=== PATIENT | female | born 2000 | race Caucasian/White ===

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

== ENCOUNTER 2022-04-18 22:37 | Emergency (ER) | payer OTHER, SELFPAY ==
[2022-04-18 23:40] VITALS: BP 105/67; PULSE 65; RESP 16; TEMP 36.4; O2SAT 100
--- NOTE | 2022-04-19 02:38 | ED.GENADULT ---
HPI - General Adult General Chief complaint: Headache Stated complaint: Headache Time Seen by Provider: 04/19/22 02:28 History of Present Illness HPI narrative: Patient is a 21-year-old female who presents the emergency department with chief complaint of headache. The patient reports that she has had problems occasionally with headaches but has not had a headache like this in some time. Patient states that she was extremely nauseated unable to keep anything down patient received Zofran by EMS and reports that she has been able to get older rest and is now feeling much better. The patient reports her headache is essentially gone and she would like to try something to drink now. Related Data Home Medications Medication Instructions Recorded Confirmed drospirenone 3 mg-ethinyl tablet 10/15/21 estradiol 0.02 mg tablet Allergies Allergy/AdvReac Type Severity Reaction Status Date / Time carbamazepine Allergy Unknown Rash Verified 10/15/21 21:20 Review of Systems Review of Systems: A 10 system review of systems was completed on the patient and is negative except for what is stated in the HPI. Nursing and ancillary documentation was reviewed. [facility] Past Medical History Medical History (Updated 04/19/22 @ 02:40 by Brenton Vidales MD) Bipolar disorder Sensory disorder Surgical History Surgical History History of tonsillectomy Family History Family History Other No significant family history Social History Social History Smoking status: Never smoker Second hand tobacco smoke exposure: No Alcohol intake: never Substance use: never Gender identity (if verbalized by the patient): Female Exam Narrative: GENERAL: Well-appearing, well-nourished, and in no acute distress. HEAD: Normocephalic, atraumatic. EYES: PERRLA and EOMI. ENT: Nares clear, no rhinorrhea or epistaxis. Mucous membranes moist. NECK: Supple. CHEST: Clear to auscultation. No respiratory distress. HEART: Regular rate and rhythm. No murmur heard. Normal peripheral pulses. ABDOMEN: Soft, nontender, nondistended, normal active bowel sounds. EXTREMITIES: Normal range of motion. No edema. SKIN: Warm, dry, no rash. NEURO: No focal deficits. Alert and oriented x3. PSYCH: Normal mood and affect. Course Course Emergency Course: Patient received Zofran and is feeling much better at this time. Patient states her headache is essentially resolved patient has no focal neurological deficits and shows no sign of space-occupying lesion. Vital Signs Vital signs: Vital Signs Temperature 36.4 C L 04/18/22 23:40 Pulse Rate 65 04/18/22 23:40 Respiratory Rate 16 04/18/22 23:40 Blood Pressure 105/67 04/18/22 23:40 Pulse Oximetry 100 04/18/22 23:40 Oxygen Delivery Room Air 04/18/22 23:40 Temperature 36.4 C L 04/18/22 23:40 Pulse Rate 65 04/18/22 23:40 Respiratory Rate 16 04/18/22 23:40 Blood Pressure 105/67 04/18/22 23:40 Pulse Oximetry 100 04/18/22 23:40 Oxygen Delivery Room Air 04/18/22 23:40 Medical Decision Making Vital Signs Vital Signs: Vital Signs Temperature 36.4 C L 04/18/22 23:40 Pulse Rate 65 04/18/22 23:40 Respiratory Rate 16 04/18/22 23:40 Blood Pressure 105/67 04/18/22 23:40 Pulse Oximetry 100 04/18/22 23:40 Oxygen Delivery Room Air 04/18/22 23:40 Temperature 36.4 C L 04/18/22 23:40 Pulse Rate 65 04/18/22 23:40 Respiratory Rate 16 04/18/22 23:40 Blood Pressure 105/67 04/18/22 23:40 Pulse Oximetry 100 04/18/22 23:40 Oxygen Delivery Room Air 04/18/22 23:40 Discharge Plan Discharge Clinical Impression: Headache Patient Disposition: Home, Self-Care Condition: Stable Instructions: Antibiotic Form, Acute Headache (ED) Prescri
--- NOTE | 2022-04-19 03:07 | PC.NURSE ---
Report given to
== END 2022-04-19 04:30 | disposition home or self-care (01) ==
PROVIDERS: Emergency Provider Emergency Medicine
DX: R51.9 Headache, unspecified (principal)
CPT/HCPCS: 99283; J2405

== ENCOUNTER 2022-10-11 14:23 | Emergency (ER) | payer OTHER, SELFPAY ==
--- NOTE | ~2022-10-11 | XR_ITS ---
XR abdomen/kub 1V DATE: 10/11/2022 15:09 INDICATION: Constipation TECHNIQUE: AP view COMPARISON: None FINDINGS: Approximately 9 cm wide stool ball at rectosigmoid area. Prominent of fecal material in the left colon. No bowel obstruction is noted. Associated as are intact. No visceromegaly or significant abnormal calcification. IMPRESSION: Large stool ball in the rectosigmoid area, prominent amount of fecal material in the left colon. Reviewed, dictated and finalized at Location A. Reviewed, dictated and finalized at location L. 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
[2022-10-11 14:30] VITALS: BP 109/58; PULSE 99; RESP 18; TEMP 36.6; O2SAT 99
--- NOTE | 2022-10-11 15:26 | ED.ABDPAIN ---
HPI - Abdominal Pain General Chief Complaint: Abdominal Pain Stated Complaint: Constipation Time Seen by Provider: 10/11/22 14:35 Source: patient Mode of arrival: ambulatory Limitations: no limitations History of Present Illness HPI narrative: Mae is a 22-year-old female patient presenting to the clinic today with complaints lower abdominal pain x1 week. She reports having a history of constipation with impaction that had to be evacuated in a hospital setting. States she is concerned that she may be impacted. Is having a lot of pain and pressure to the rectum as well as discomfort in the lower abdomen. She does not know when her last menstrual period was however she does have the Nexplanon placed. Is not taking any laxatives currently. States she is scared to eat because she does not want her symptoms to get worse. Related Data Allergies Allergy/AdvReac Type Severity Reaction Status Date / Time carbamazepine Allergy Unknown Rash Verified 10/15/21 21:20 Review of Systems Review of Systems: Pertinent positives per HPI. Patient denies any fever, chills, rash, headache, visual changes, dizziness, cough, shortness of breath, chest pain, palpitations, nausea, vomiting, diarrhea, constipation, abdominal pain, or any urinary issues. PMFSH Past Medical History Medical History Bipolar disorder Sensory disorder Surgical History Surgical History History of tonsillectomy Family History Family History Other No significant family history Social History Social History Smoking status: Never smoker Second hand tobacco smoke exposure: No Alcohol intake: never Substance use: never Living arrangements: with family Occupation/Education: student Gender identity (if verbalized by the patient): Female Comments At the time of my signature, I reviewed and agree with the nursing past medical, surgical, social, and family history. There is no relevant family history pertinent to the patient complaint. Exam Narrative: General: Well-developed, well nourished, in no apparent distress. Head: Normocephalic, atraumatic. Cardio: Regular rate and rhythm, s1 and s2 normal, no murmur appreciated. Resp: Clear to auscultation bilaterally, no rhonchi, rales, wheezing or rubs. Abdomen: Soft, pliable, nondistended, bowel sounds present in all quadrants, tender to palpation with firm stool palpable in the left lower quadrant and above the pubis, no organomegly, no CVAT tenderness. Course Course Emergency Course: Portions of this record may have been created with voice recognition software. Level of Care: Express Care Visit Vital Signs Vital signs: Vital Signs Temperature 36.6 C 10/11/22 14:30 Pulse Rate 99 10/11/22 14:30 Respiratory Rate 18 10/11/22 14:30 Blood Pressure 109/58 L 10/11/22 14:30 Pulse Oximetry 99 10/11/22 14:30 Oxygen Delivery Room Air 10/11/22 14:30 Temperature 36.6 C 10/11/22 14:30 Pulse Rate 99 10/11/22 14:30 Respiratory Rate 18 10/11/22 14:30 Blood Pressure 109/58 L 10/11/22 14:30 Pulse Oximetry 99 10/11/22 14:30 Oxygen Delivery Room Air 10/11/22 14:30 Vital signs reviewed MDM - Abdominal Pain MDM Narrative Medical decision making narrative: At the time of visit patient is resting comfortably on the exam table. Firm palpable stool felt in the left lower quadrant and over the pubis. X-ray was performed and shows a large amount of stool in the sigmoid colon as well as backed up into the left lower: Significant for constipation. Will send in prescription for fleets enemas, lactulose and have the patient has take MiraLax as well. Supportive measures were discussed with the patient she voiced understanding of discharge
== END 2022-10-11 15:43 | disposition home or self-care (01) ==
PROVIDERS: Emergency Provider Nurse Practitioner Family
DX: K59.02 Outlet dysfunction constipation (principal)
CPT/HCPCS: 74018; 99213; G0463

== ENCOUNTER 2022-11-13 17:59 | Emergency (ER) | payer OTHER, SELFPAY ==
[2022-11-13 18:08] VITALS: BP 116/63; PULSE 92; RESP 16; TEMP 36.2; O2SAT 99
[2022-11-13 18:09] VITALS: BP 116/63; PULSE 92; RESP 16; TEMP 36.2; O2SAT 99
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
== END 2022-11-13 18:28 | disposition home or self-care (01) ==
PROVIDERS: Emergency Provider Nurse Practitioner
DX: S02.5XXA Fracture of tooth (traumatic), initial encounter for closed fracture (principal); W16.012A Fall into swimming pool striking water surface causing other injury, initial encounter; F17.290 Nicotine dependence, other tobacco product, uncomplicated
CPT/HCPCS: 99213; G0463

== ENCOUNTER 2022-12-13 10:33 | Emergency (ER) | payer OTHER, SELFPAY ==
[2022-12-13 10:40] VITALS: BP 109/76; PULSE 81; RESP 18; TEMP 36.9; O2SAT 100
--- NOTE | 2022-12-13 10:44 | ED.SKABFB ---
HPI - Skin/Abscess/Foreign Bdy General Chief complaint: Skin/Abscess/Foreign Body Stated complaint: rash Time Seen by Provider: 12/13/22 10:43 Source: patient, RN notes reviewed and old records reviewed Mode of arrival: ambulatory Limitations: no limitations History of Present Illness HPI narrative: 22-year-old female presents to the [facility] with a circular raised edge rash to the left deltoid area. States has been there a couple of days, describes it as being very itchy. No treatment prior to arrival Related Data Home Medications Medication Instructions Recorded Confirmed etonogestrel 68 mg subdermal 1 implant subdermal ONCE 11/13/22 12/13/22 implant (Nexplanon) Allergies Allergy/AdvReac Type Severity Reaction Status Date / Time carbamazepine Allergy Intermediate Rash Verified 12/13/22 10:38 Review of Systems Review of Systems: All systems reviewed & are unremarkable except as noted in HPI and below Constitutional: Constitutional: Reports no additional constitutional complaints Eyes: Eyes: Reports no additional eye complaints ENT: Reports system reviewed and no additional complaints, except as documented Cardiovascular: Cardiovascular: Reports no additional cardiovascular complaints, Denies chest pain and Denies dyspnea Respiratory: Respiratory: Reports no additional respiratory complaints, Denies chest congestion, Denies cough and Denies dyspnea Gastrointestinal: Gastrointestinal: Reports no additional gastrointestinal complaints, Denies abdominal pain, Denies nausea and Denies vomiting Musculoskeletal: Musculoskeletal: Reports no additional musculoskeletal complaints Integumentary/Breasts: Skin/Breast: Reports as per HPI Neurologic: Reports system reviewed and no additional complaints, except as documented Psychiatric: Psychiatric: Reports no additional psychiatric complaints Allergic/Immunologic: Allergic/Immunologic: Reports no additional allergic/immunologic complaints [facility] Past Medical History Medical History Bipolar disorder Sensory disorder Surgical History Surgical History History of tonsillectomy Family History Family History Other No significant family history Social History Social History Smoking status: Current every day smoker Tobacco type: e-cigarettes/vaping Alcohol intake: never Substance use: never Living arrangements: with family Occupation/Education: student Gender identity (if verbalized by the patient): Female Spiritual care concerns: No Comments At the time of my signature, I reviewed and agree with the nursing past medical, surgical, social, and family history. There is no relevant family history pertinent to the patient complaint. Exam Const: General: cooperative, healthy appearing, comfortable, no acute distress, well developed, alert and well nourished Nutritional Appearance: well nourished Orientation/consciousness: patient oriented x3 Limitations: no limitations HENMT: Head: normal to inspection Ears: hearing grossly normal bilaterally and external ears normal Face/Nose/Sinus: Normal external nose present, Normal nares present, Normal nasal mucous membranes and turbinates present and normal facial exam Face and sinus: normal facial exam Mouth: Yes lip normal Eyes: General: appearance normal, both eyes and all related structures Alignment and Position: alignment normal Periorbital: periorbital findings normal Pupils: Equal, round and reactive pupils present EOM: EOMs intact bilaterally Neck: Neck: normal visual inspection, full ROM, no lymphadenopathy and no meningeal signs Chest: Chest palpation & inspection: normal inspection of the chest Resp: Effort & Inspection: normal respiratory effort and able to speak in c
== END 2022-12-13 10:58 | disposition home or self-care (01) ==
PROVIDERS: Emergency Provider Nurse Practitioner
DX: B35.4 Tinea corporis (principal); F17.290 Nicotine dependence, other tobacco product, uncomplicated
CPT/HCPCS: 99213; G0463

== ENCOUNTER 2023-01-11 15:42 | Emergency (ER) | payer OTHER, SELFPAY ==
--- NOTE | ~2023-01-11 | XR_ITS ---
EXAMINATION: XR abdomen/kub 1V INDICATION: Constipation, lower abdominal pain TECHNIQUE: Supine views of the abdomen were obtained on 2 radiographs. COMPARISON: 10/11/2022 FINDINGS: There is a large volume of stool in the sigmoid colon and rectum. The bowel gas pattern is normal. There are no dilated loops of bowel. The visualized lung bases are clear. The osseous structu res are unremarkable. IMPRESSION: 1. Constipation with large volume of stool in the sigmoid colon and rectum. Reviewed, dictated and finalized at location F.
--- NOTE | 2023-01-11 15:46 | ED.DENTAL ---
HPI - Dental/Oral General Chief complaint: Unspecified Stated complaint: Dental Pain/Constipation Time Seen by Provider: 01/11/23 15:43 Source: patient Mode of arrival: ambulatory Limitations: no limitations History of Present Illness HPI Narrative: Patient is a 22 year old female that presents with constipation and left bottom molar pain. Patient has dentist appointment next week but is concerned for infection. Patient has been seen in the past for same tooth. Patient states tooth is broken off and has been to cane over time. Patient also having abdominal pain and constipation. Patient has frequent constipation issues and is unsure when her last bowel movement was. Patient has been seen for this in the past as well and was given lactulose. Patient states lactulose helped her and she was able to pass her stool. Patient adamantly refuses to go to emergency department stating she does not trust hospitals due to childhood abdominal issues in long stent at [facility]. Patient is tearful in room. Related Data Home Medications Medication Instructions Recorded Confirmed etonogestrel 68 mg subdermal 1 implant subdermal ONCE 11/13/22 01/11/23 implant (Nexplanon) Allergies Allergy/AdvReac Type Severity Reaction Status Date / Time carbamazepine Allergy Intermediate Rash Verified 01/11/23 16:40 Review of Systems Review of Systems: All systems reviewed & are unremarkable except as noted in HPI and below Constitutional: Constitutional: Denies body ache(s), Denies fever(s), Denies headache(s), Denies malaise and Denies weakness Eyes: Eyes: Denies loss of vision ENT: Denies otalgia, Reports facial pain (jaw), Denies headache(s), Denies nasal discharge, Denies sinus pain and Denies sore throat Cardiovascular: Cardiovascular: Denies chest pain, Denies irregular heart rhythm and Denies dyspnea Respiratory: Respiratory: Denies dyspnea Gastrointestinal: Gastrointestinal: Denies abdominal pain, Denies melena, Denies hematochezia, Reports constipation, Denies diarrhea, Denies nausea and Denies vomiting Musculoskeletal: Musculoskeletal: Denies back pain, Denies myalgias and Denies arthralgias Integumentary/Breasts: Skin/Breast: Denies pruritus and Denies rash Neurologic: Denies headache(s), Denies loss of vision and Denies weakness Psychiatric: Psychiatric: Reports no additional psychiatric complaints PMFSH Past Medical History Medical History (Updated 01/11/23 @ 17:24 by Shahana Taylor APRN) Bipolar disorder Sensory disorder Surgical History Surgical History History of tonsillectomy Family History Family History Other No significant family history Social History Social History Smoking status: Current every day smoker Tobacco type: e-cigarettes/vaping Alcohol intake: never Substance use: never Living arrangements: with family Occupation/Education: student Gender identity (if verbalized by the patient): Female Spiritual care concerns: No Comments At time of signature, agree with nursing past medical, surgical, social and family history. There is no relevant family history pertinent to the presenting complaint. Exam Const: General: cooperative, healthy appearing, comfortable, no acute distress and well nourished Nutritional Appearance: well nourished Orientation/consciousness: patient oriented x3 Limitations: no limitations HENMT: Head: normal to inspection, normocephalic and atraumatic Ears: hearing grossly normal bilaterally, external ears normal, TM's normal bilaterally and mastoids normal bilaterally Face/Nose/Sinus: Normal external nose present, normal facial exam and face symmetric Face and sinus: normal facial exam and face symmetric Mouth: Yes Normal oral and palatal mucosa present, Yes lip normal, Yes tongue normal
[2023-01-11 15:57] VITALS: BP 96/60; PULSE 82; RESP 16; TEMP 37; O2SAT 100
== END 2023-01-11 17:35 | disposition home or self-care (01) ==
PROVIDERS: Emergency Provider Nurse Practitioner Family
DX: K04.7 Periapical abscess without sinus (principal); K59.00 Constipation, unspecified; F17.290 Nicotine dependence, other tobacco product, uncomplicated
CPT/HCPCS: 74018; 81025; 99213; G0463

== ENCOUNTER 2023-05-06 10:55 | Emergency (ER) | payer OTHER, SELFPAY ==
[2023-05-06 11:07] VITALS: BP 104/67; PULSE 78; RESP 14; TEMP 37.3; O2SAT 100
--- NOTE | 2023-05-06 11:11 | ED.GENADULT ---
HPI - General Adult General Chief complaint: Urogenital-Female Stated complaint: vaginal issue Time Seen by Provider: 05/06/23 11:12 Source: patient, RN notes reviewed and old records reviewed Mode of arrival: ambulatory Limitations: no limitations History of Present Illness HPI narrative: 22-year-old female presents to the [facility] with complaints of vaginal discharge, describes it as being brown and bright red. Denies any abdominal pain. No nausea or vomiting. Reports having intermittent breast tenderness as well. Patient is requesting an ultrasound as well as blood work. Has she is concerned that she might be or having a miscarriage. Explained to patient that we can do a urine , test for UTI, patient is wanting blood work. States that she did have spotting that lasted 2 days on and Saturday. Patient reports she had seen [facility] last month in regards to irregular periods. Related Data Home Medications Medication Instructions Recorded Confirmed etonogestrel 68 mg subdermal 1 implant subdermal ONCE 11/13/22 01/11/23 implant (Nexplanon) spironolactone 50 mg tablet mg 05/06/23 Allergies Allergy/AdvReac Type Severity Reaction Status Date / Time carbamazepine Allergy Intermediate Rash Verified 05/06/23 11:02 Review of Systems Review of Systems: All systems reviewed & are unremarkable except as noted in HPI and below Constitutional: Constitutional: Reports no additional constitutional complaints Eyes: Eyes: Reports no additional eye complaints ENT: Reports system reviewed and no additional complaints, except as documented Cardiovascular: Cardiovascular: Reports no additional cardiovascular complaints, Denies chest pain and Denies dyspnea Respiratory: Respiratory: Reports no additional respiratory complaints, Denies chest congestion, Denies cough and Denies dyspnea Gastrointestinal: Gastrointestinal: Reports no additional gastrointestinal complaints, Denies abdominal pain, Denies nausea and Denies vomiting Genitourinary: Genitourinary: Reports as per HPI, Reports abnormal menses and Reports vaginal discharge Musculoskeletal: Musculoskeletal: Reports no additional musculoskeletal complaints Integumentary/Breasts: Skin/Breast: Reports system reviewed and no additional complaints, except as docu Neurologic: Reports system reviewed and no additional complaints, except as documented Psychiatric: Psychiatric: Reports no additional psychiatric complaints Allergic/Immunologic: Allergic/Immunologic: Reports no additional allergic/immunologic complaints PMFSH Past Medical History Medical History Bipolar disorder Sensory disorder Surgical History Surgical History History of tonsillectomy Family History Family History Other No significant family history Social History Social History Smoking status: Current every day smoker Tobacco type: e-cigarettes/vaping Alcohol intake: never Substance use: never Living arrangements: with family Occupation/Education: student Gender identity (if verbalized by the patient): Female Spiritual care concerns: No Comments At the time of my signature, I reviewed and agree with the nursing past medical, surgical, social, and family history. There is no relevant family history pertinent to the patient complaint. Exam Const: General: cooperative, healthy appearing, comfortable, no acute distress, well developed, alert and well nourished Nutritional Appearance: well nourished Orientation/consciousness: patient oriented x3 Limitations: no limitations HENMT: Head: normal to inspection Ears: hearing grossly normal bilaterally and external ears normal Face/Nose/Sinus: Normal external nose present, Normal nares
== END 2023-05-06 11:16 | disposition left against medical advice (07) ==
PROVIDERS: Emergency Provider Nurse Practitioner
DX: N89.8 Other specified noninflammatory disorders of vagina (principal); F17.290 Nicotine dependence, other tobacco product, uncomplicated
CPT/HCPCS: 99211; G0463

== ENCOUNTER 2023-05-06 11:32 | Emergency (ER) | payer OTHER, SELFPAY ==
[2023-05-06 11:49] VITALS: BP 132/96; PULSE 94; RESP 16; TEMP 36.8; O2SAT 98
--- NOTE | 2023-05-06 14:16 | ED.FEMALEGU ---
HPI - Female Genitourinary General Chief complaint: CRIMINALIST Stated complaint: irregular vag bleeding Time Seen by Provider: 05/06/23 13:05 History of Present Illness HPI Narrative: Patient is a 22-year-old female presenting with vaginal bleeding. Patient states that she has had irregular periods for some time now. States that she was supposed to have her period at the beginning of April but instead it came in the last week of April. Over the last several days she has had very dark blood when she wipes. Reports discomfort with urination. States she is concerned that she is miscarrying though she has not had any positive tests. States she was seen by OB several weeks ago and everything was normal. No fevers or chills, abdominal pain, nausea or vomiting, hematuria. Sexually active only with her boyfriend. Not concerned for STDs. Related Data Home Medications Medication Instructions Recorded Confirmed etonogestrel 68 mg subdermal 1 implant subdermal ONCE 11/13/22 01/11/23 implant (Nexplanon) spironolactone 50 mg tablet mg 05/06/23 Allergies Allergy/AdvReac Type Severity Reaction Status Date / Time carbamazepine Allergy Intermediate Rash Verified 05/06/23 11:02 Review of Systems Review of Systems: All systems reviewed & are unremarkable except as noted in HPI and below PMFSH Past Medical History Medical History (Updated 05/07/23 @ 00:01 by Bello Castillo) Bipolar disorder Sensory disorder Surgical History Surgical History History of tonsillectomy Family History Family History Other No significant family history Social History Social History Smoking status: Current every day smoker Tobacco type: e-cigarettes/vaping Alcohol intake: never Substance use: never Living arrangements: with family Occupation/Education: student Gender identity (if verbalized by the patient): Female Spiritual care concerns: No Exam Narrative: GENERAL: Well-appearing, well-nourished, and in no acute distress. HEAD: Normocephalic, atraumatic. EYES: PERRLA and EOMI. ENT: Mucous membranes moist. NECK: Supple. CHEST: No respiratory distress. HEART: Regular rate and rhythm ABDOMEN: Soft, nontender, nondistended EXTREMITIES: Normal range of motion. No edema. SKIN: Warm, dry, no rash. NEURO: Alert and oriented x3. PSYCH: Normal mood and affect. Course Vital Signs Vital signs: Vital Signs Temperature 98.2 F 05/06/23 11:49 Pulse Rate 94 05/06/23 11:49 Respiratory Rate 16 05/06/23 11:49 Blood Pressure 132/96 H 05/06/23 11:49 Pulse Oximetry 98 05/06/23 11:49 Oxygen Delivery Room Air 05/06/23 11:49 Temperature 98.2 F 05/06/23 11:49 Pulse Rate 68 05/06/23 15:06 Respiratory Rate 15 05/06/23 15:06 Blood Pressure 123/87 05/06/23 15:06 Pulse Oximetry 99 05/06/23 15:06 Oxygen Delivery Room Air 05/06/23 11:49 MDM - Female Genitourinary MDM Narrative Medical decision making narrative: 22-year-old female presenting with irregular vaginal bleeding. Vital stable. test negative. Exam is benign and very reassuring. UA concerning for UTI. We will start the patient on Keflex. 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 Appropriate return precautions given. Patient voiced understanding and is agreeable with plan. Discharged in stable condition. Differential Diagnosis Differential diagnosis: Likely urinary tract infection, cystitis and dysmenorrhea Medical Records Attestation: I reviewed the patient's medical records. Lab Data Attestation: I reviewed the patient's lab results. Labs: Lab Results 05/06/23 Range/Units 14:18 Urine Color Yellow (Yellow) Urine Appearance Clear (Clear) Urine pH 7.5 (5.0-9.0) Ur Specifi
[2023-05-06 14:42] LABS: Appearance Urine Clear (Clear); Bacteria Urine None Seen /hpf; Bilirubin Urine Negative (Negative); Color Urine Yellow (Yellow); Glucose Urine UA Negative (Negative); Ketones Urine Negative (Negative); Leukocyte Esterase Ur 1+ LEU/UL (Negative); Nitrate Urine Negative (Negative); Non Pathogenic Casts 0-2; Protein Urine Negative (Negative); Specific Grav Ur 1.014 (1.001-1.035); Squamous Epithelial Cell Urine Few /hpf (Few); Urobilinogen Urine 0.2 mg/dL (<2.0); WBC Urine 51-100 /hpf; pH Urine 7.5 (5.0-9.0)
[2023-05-06 14:44] LABS: Add Urine Microscopic? YES
[2023-05-06 15:06] VITALS: BP 123/87; PULSE 68; RESP 15; O2SAT 99
== END 2023-05-06 15:07 | disposition home or self-care (01) ==
PROVIDERS: Emergency Provider Emergency Medicine
DX: N39.0 Urinary tract infection, site not specified (principal); F17.290 Nicotine dependence, other tobacco product, uncomplicated; F31.9 Bipolar disorder, unspecified
CPT/HCPCS: 81001; 81025; 87077; 87086; 87088; 99283

== ENCOUNTER 2023-08-20 07:18 | Emergency (ER) | payer OTHER, SELFPAY ==
[2023-08-20 07:21] VITALS: BP 108/67; PULSE 73; RESP 16; TEMP 36.3; O2SAT 99
[2023-08-20 08:15] LABS: Appearance Urine Clear (Clear); Bilirubin Urine Negative (Negative); Blood Urine Negative (Negative); Color Urine Dark Yellow (Yellow); Glucose Urine UA Negative (Negative); Ketones Urine Negative (Negative); Leukocyte Esterase Ur Negative LEU/UL (Negative); Nitrate Urine Negative (Negative); Protein Urine Negative (Negative); Specific Grav Ur 1.029 (1.001-1.035); Urobilinogen Urine 0.2 mg/dL (<2.0)
[2023-08-20 08:16] LABS: Add Urine Microscopic? NO
--- NOTE | 2023-08-20 09:26 | ED.GENADULT ---
HPI - General Adult General Chief complaint: Unspecified Stated complaint: roldan/finger problem/possible infected tooth/poss uti Time Seen by Provider: 08/20/23 08:58 Source: patient Mode of arrival: ambulatory Limitations: no limitations History of Present Illness HPI narrative: This is a 22-year-old female who presents to the ED with multiple complaints. Her chief complaint is headache that began last night. It continued today despite taking Tylenol. Not as bad as previous headaches. She feels that it is probably from some dental pain that she has been having over the last several weeks. Reports that her left lower molar is possibly infected. She has secondary complaints of some urinary frequency as concern for UTI. Tertiary complaint of possible rate with a small oval rash to the left thumb. Denies fevers, chills chest pain, shortness breath, numbness, weakness, LOC. Related Data Allergies Allergy/AdvReac Type Severity Reaction Status Date / Time carbamazepine Allergy Intermediate Rash Verified 07/05/23 10:59 Review of Systems Review of Systems: All systems as dictated in HPI PMF Past Medical History Medical History Bipolar disorder Sensory disorder Surgical History Surgical History History of tonsillectomy Family History Family History Other No significant family history Social History Social History (Updated 07/05/23 @ 11:00 by Mandy Mart MA) Smoking status: Current every day smoker Tobacco type: e-cigarettes/vaping Alcohol intake: never Substance use: current Substance use type: marijuana Lack of Transportation: No Lack of Food: Sometimes True Current Housing: Decline to Answer Concerned About Future Housing: Decline to Answer Difficulty Paying Gas/Electric Bills: No Difficulty Paying for Meds: No Currently Unemployed: YES Education: High School Diploma/GED Difficulty w/ Childcare or Family Care: No Living arrangements: with family Occupation/Education: student Gender identity (if verbalized by the patient): Female Spiritual care concerns: No Exam Narrative: GENERAL: Well-appearing, well-nourished, and in no acute distress. HEAD: Normocephalic, atraumatic. EYES: PERRLA and EOMI. ENT: Nares clear, no rhinorrhea or epistaxis. Mucous membranes moist. Oropharynx without tonsillar hypertrophy exudate or other lesions. NECK: Supple. No adenopathy or masses. CHEST: No respiratory distress. Clear to auscultation. No wheezes rales or rhonchi HEART: Regular rate and rhythm. No murmur heard. Normal peripheral pulses. ABDOMEN: Soft, nontender, nondistended, normal active bowel sounds. MSK: Normal range of motion. No edema. SKIN: Small 1 cm raised oval patch to the dorsum of the left thumb. No tenderness or surrounding erythema. NEURO: Alert and oriented x3. No focal deficits. PSYCH: Normal mood and affect. Course Vital Signs Vital signs: Vital Signs Temperature 97.4 F L 08/20/23 07:21 Pulse Rate 73 08/20/23 07:21 Respiratory Rate 16 08/20/23 07:21 Blood Pressure 108/67 08/20/23 07:21 Pulse Oximetry 99 08/20/23 07:21 Oxygen Delivery Room Air 08/20/23 07:21 Temperature 97.5 F L 08/20/23 09:38 Pulse Rate 80 08/20/23 09:38 Respiratory Rate 16 08/20/23 09:38 Blood Pressure 116/70 08/20/23 09:38 Pulse Oximetry 100 08/20/23 09:38 Oxygen Delivery Room Air 08/20/23 07:21 Medical Decision Making MDM Narrative Medical decision making narrative: This is a 22-year-old female who presents to the ED with chief complaint of headache along with possible dental infection. Also complains of a oval skin rash to the base of the thumb. Also had urinary complaints. vitals are normal. Exam remarkable for the above. Likely has a dental infectio
--- NOTE | 2023-08-20 09:37 | PC.NURSE ---
pt refuses SLN and IV medications. Pt states I don't like needles, I will try ibuprofen at home. ERP notified
[2023-08-20 09:38] VITALS: BP 116/70; PULSE 80; RESP 16; TEMP 36.4; O2SAT 100
== END 2023-08-20 09:38 | disposition home or self-care (01) ==
LOC: ANHED 09:41
PROVIDERS: Emergency Medicine; Emergency Provider Physician Assistant; PCP Family Medicine
DX: K02.9 Dental caries, unspecified (principal); R51.9 Headache, unspecified; B35.9 Dermatophytosis, unspecified; F17.290 Nicotine dependence, other tobacco product, uncomplicated
CPT/HCPCS: 81003; 99283

== ENCOUNTER 2023-10-12 08:33 | Emergency (ER) | payer OTHER, SELFPAY ==
[2023-10-12 08:43] VITALS: BP 124/73; PULSE 74; RESP 16; TEMP 36.6; O2SAT 100
--- NOTE | 2023-10-12 09:13 | ED.EAR ---
HPI - Ear Problem General Chief complaint: Ear Stated complaint: left ear tender,swollen Time Seen by Provider: 10/12/23 09:13 Source: patient and RN notes reviewed Mode of arrival: ambulatory Limitations: no limitations History of Present Illness HPI Narrative: 23-year-old female presents concern for left ear pain. She reports her ear feels tender and swollen. She reports over the last few days she has noted pain in her left ear, it hurts when she moves her ear. She denies drainage from it. She denies hearing problems, cold symptoms. She denies history of problems with her ear. Denies foreign body or injury to the year. Complaint: ear pain Related Data Allergies Allergy/AdvReac Type Severity Reaction Status Date / Time carbamazepine Allergy Intermediate Rash Verified 10/12/23 08:34 Review of Systems Review of Systems: CONSTITUTIONAL: Denies malaise, chills, sweats, or fever. EYES: Denies visual changes, redness, or discharge. ENT: Denies rhinorrhea, congestion, sinus pain, and sore throat. Reports last ear pain CARDIOVASCULAR: Denies chest pain, palpitations, or edema. RESPIRATORY: Denies cough. Denies dyspnea. GASTROINTESTINAL: Denies abdominal pain, nausea, vomiting, diarrhea SKIN: Denies rash or itching. MUSCULOSKELETAL: Denies myalgia. NEUROLOGIC: Denies headache. All systems reviewed & are unremarkable except as noted in HPI and below PMFSH Past Medical History Medical History Bipolar disorder Sensory disorder Surgical History Surgical History History of tonsillectomy Family History Family History Other No significant family history Social History Social History (Updated 07/05/23 @ 11:00 by Mandy Mart MA) Smoking status: Current every day smoker Tobacco type: e-cigarettes/vaping Alcohol intake: never Substance use: current Substance use type: marijuana Lack of Transportation: No Lack of Food: Sometimes True Current Housing: Decline to Answer Concerned About Future Housing: Decline to Answer Difficulty Paying Gas/Electric Bills: No Difficulty Paying for Meds: No Currently Unemployed: YES Education: High School Diploma/GED Difficulty w/ Childcare or Family Care: No Living arrangements: with family Occupation/Education: student Gender identity (if verbalized by the patient): Female Spiritual care concerns: No Comments At time of signature, agree with nursing past medical, surgical, social and family history. There is no relevant family history pertinent to the presenting complaint Exam Narrative: GENERAL: Well-appearing, well-nourished, and in no acute distress. HEAD: Normocephalic EYES: PERRLA, conjunctivae clear ENT: Nares clear, turbinates edematous, clear discharge. Mucous membranes moist. TM pearly kelly with sharp light reflex bilaterally; left tragal tenderness with EAC erythema, edema, outer ear is unremarkable, post and preauricular area unremarkable. Oropharynx not erythematous without lesions. Tonsils not enlarged and without exudate, no drooling, no hoarseness, no trismus, uvula midline. NECK: Supple. No lymphadenopathy CHEST: Clear to auscultation, breath sounds equal. No wheezing, rhonchi, rales, or stridor. No respiratory distress, speaks in full sentences. HEART: Regular rate and rhythm. No murmur heard. SKIN: Warm, dry, no rash. NEURO: Alert and oriented x3. PSYCH: Normal mood and affect Course Course Emergency Course: Patient is aware of diagnosis, understands and agrees to treatment plan. Anticipatory guidance given. Patient agrees to follow-up as directed and is aware of reasons to seek care at the emergency department. Portions of this record may have been created with voice recognition software Level of Care: Express Care Visit Vital Signs Vital sig
== END 2023-10-12 09:23 | disposition home or self-care (01) ==
PROVIDERS: Emergency Provider Nurse Practitioner; PCP Family Medicine
DX: H60.92 Unspecified otitis externa, left ear (principal); F17.290 Nicotine dependence, other tobacco product, uncomplicated; F12.90 Cannabis use, unspecified, uncomplicated
CPT/HCPCS: 99213; G0463

== ENCOUNTER 2024-02-10 18:49 | Emergency (ER) | payer OTHER, SELFPAY ==
[2024-02-10 19:02] VITALS: BP 111/83; PULSE 95; RESP 16; TEMP 37.1; O2SAT 99
[2024-02-10 19:12] VITALS: BP 111/83; PULSE 95; RESP 16; TEMP 37.1; O2SAT 99
--- NOTE | 2024-02-10 19:17 | ED.URI ---
HPI - URI/Sore Throat General Chief Complaint: Upper Respiratory Infection Stated Complaint: congested Time Seen by Provider: 02/10/24 19:17 Source: patient Mode of arrival: ambulatory Limitations: no limitations History of Present Illness HPI Narrative: 23-year-old female presents with complaint nasal congestion for 3 days. Thinks that she was exposed to COVID from her boyfriend. No chest pain or shortness of breath. Patient is approximately 7 weeks . Unsure what she can take to treat her symptoms due to being . Afebrile. All systems reviewed and negative except as noted above. Related Data Home Medications Medication Instructions Recorded Confirmed No Home Medications 02/10/24 02/10/24 Allergies Allergy/AdvReac Type Severity Reaction Status Date / Time carbamazepine Allergy Intermediate Rash Verified 02/10/24 19:26 Review of Systems Review of Systems: CONSTITUTIONAL: Denies fever, chills, or sweats. EYES: Denies visual changes, redness, or discharge. ENT: Reports rhinorrhea, congestion. Denies sore throat, or otalgia. CARDIOVASCULAR: Denies chest pain, palpitations, or edema. RESPIRATORY: Denies cough or dyspnea. GASTROINTESTINAL: Denies abdominal pain, nausea, vomiting, or diarrhea. GENITOURINARY: Denies dysuria or hematuria. SKIN: Denies rash or itching. MUSCULOSKELETAL: Denies back pain, joint pain, or myalgia. NEUROLOGIC: Denies headache, numbness, or weakness. PSYCHIATRIC: Denies anxiety or depression. All other systems reviewed are negative, except as documented in HPI. [facility] Past Medical History Medical History Bipolar disorder Sensory disorder Surgical History Surgical History History of tonsillectomy Family History Family History Other No significant family history Social History Social History (Updated 07/05/23 @ 11:00 by Mandy Mart MA) Smoking status: Current every day smoker Tobacco type: e-cigarettes/vaping Alcohol intake: never Substance use: current Substance use type: marijuana Lack of Transportation: No Lack of Food: Sometimes True Current Housing: Decline to Answer Concerned About Future Housing: Decline to Answer Difficulty Paying Gas/Electric Bills: No Difficulty Paying for Meds: No Currently Unemployed: YES Education: High School Diploma/GED Difficulty w/ Childcare or Family Care: No Living arrangements: with family Occupation/Education: student Gender identity (if verbalized by the patient): Female Spiritual care concerns: No Comments At time of signature, agree with nursing past medical, surgical, social and family history. There is no relevant family history pertinent to the presenting complaint. Exam Narrative: GENERAL: This is a well-nourished, well-developed patient, in no apparent distress. HEAD: normocephalic, atraumatic. EYES: PERRL. Sclera clear/white. Vision is grossly intact. EARS: External ears normal, auditory canals clear and without drainage, TMs normal without perforation. Hearing grossly intact. NOSE: External nose normal with clear nasal drainage, erythema and swelling to bilateral nares. THROAT: Mucous membranes moist, Erythema with clear postnasal drainage. NECK: Neck supple, non-tender without lymphadenopathy, masses or thyromegaly. CARDIOVASCULAR: Regular rate and rhythm without murmurs, gallops, or rubs. RESPIRATORY: Clear to auscultation. Breath sounds equal bilaterally. No wheezes, rales, or rhonchi. SKIN: warm, Dry, intact with no suspicious lesions or rash, good texture and turgor. NEURO: awake, alert, and oriented to person, place and time. There were no obvious focal neurologic abnormalities. EXTREMITIES: No joint tenderness, effusion, or edema noted. Course Course Level of Care: E
== END 2024-02-10 19:30 | disposition home or self-care (01) ==
PROVIDERS: Emergency Provider Nurse Practitioner Family
DX: O98.511 Other viral diseases complicating pregnancy, first trimester (principal); U07.1 COVID-19; Z3A.01 Less than 8 weeks gestation of pregnancy
CPT/HCPCS: 87426; 99213; G0463

== ENCOUNTER 2024-02-27 06:58 | Emergency (ER) | payer OTHER, SELFPAY ==
[2024-02-27] VITALS (10 sets, daily range): BP systolic 98–106; BP diastolic 56–64; PULSE 65–90; RESP 15–24; TEMP 36.2; O2SAT 99–100
[2024-02-27] MEDS: ONDANSETRON INJ 4 MG/2 ML VIAL IV PUSH (07:36)
[2024-02-27] MEDS: SODIUM CHLORIDE 0.9% IV 1,000 ML 999 ML IV CONT ×2 (07:36→08:21)
[2024-02-27 07:52] LABS: Basophils Percent Auto 0.2 % (0.2-1.2); Hematocrit 39.7 % (37.0-47.0); Hemoglobin 13.7 g/dL (12.0-15.0); Immature Granulocyte Absolute 0.05 K/mm3 (0.00-0.031); Immature Granulocyte Percent A 0.3 % (0-0.5); Lymphocytes Absolute Auto 0.92 K/mm3 (0.9-3.2); Mean Corpuscular HGB Conc 34.5 g/dl (32-36); Mean Corpuscular Volume 81.2 fl (80-100); Mean Platelet Volume 10.2 fl (7.4-10.4); Monocytes Absolute Auto 0.4 K/mm3 (0.1-0.6); Monocytes Percent Auto 2.3 % (2.6-8.5); Neutrophils Percent Auto 91.2 % (45.5-73.1); Platelet Count Result 323 k/mm3 (150-375); Red Blood Count 4.89 M/mm3 (4.2-5.4); Red Cell Distribution Width 13.5 % (11.5-14.5); White Blood Count 15.4 K/mm3 (4.5-10.0)
--- NOTE | 2024-02-27 07:52 | ED.GENADULT ---
HPI - General Adult General Chief complaint: Nausea/Vomiting/Diarrhea Stated complaint: 7 weeks preg, nausea Time Seen by Provider: 02/27/24 07:28 History of Present Illness HPI narrative: 23-year-old female that is approximately 7 weeks presents to the emergency department for evaluation for worsening nausea and vomiting. Patient states she has had persistent nausea during this but was prescribed medication for nausea. Patient states that his continued worsened over the last few days. Patient does have abdominal cramping but denies any pain with urination denies any vaginal bleeding vaginal discharge. Related Data Allergies Allergy/AdvReac Type Severity Reaction Status Date / Time carbamazepine Allergy Intermediate Rash Verified 02/27/24 07:39 Review of Systems Review of Systems: All systems reviewed & are unremarkable except as noted in HPI and below PMFSH Past Medical History Medical History (Updated 02/27/24 @ 09:21 by Daniel Allen MD) Bipolar disorder COVID-19 History of iron deficiency anemia Sensory disorder Sinusitis chronic, frontal Surgical History Surgical History History of tonsillectomy Family History Family History Other No significant family history Social History Social History (Updated 07/05/23 @ 11:00 by Mandy Mart MA) Smoking status: Current every day smoker Tobacco type: e-cigarettes/vaping Alcohol intake: never Substance use: current Substance use type: marijuana Lack of Transportation: No Lack of Food: Sometimes True Current Housing: Decline to Answer Concerned About Future Housing: Decline to Answer Difficulty Paying Gas/Electric Bills: No Difficulty Paying for Meds: No Currently Unemployed: YES Education: High School Diploma/GED Difficulty w/ Childcare or Family Care: No Living arrangements: with family Occupation/Education: student Gender identity (if verbalized by the patient): Female Spiritual care concerns: No Exam Narrative: APPEARANCE: Well appearing, no pain, no distress, well-nourished. HEAD: normocephalic, atraumatic. EYES: PERRLA/EOMI, conjunctivae clear. NOSE: Normal no drainage EARS:TMS clear with good light reflex. THROAT: Pharynx clear, no exudate. NECK: Supple. No adenopathy, no masses. RESPIRATORY: Airway patent, respirations nonlabored. Clear to auscultation bilaterally, no rales, rhonchi, wheezing. CARDIOVASCULAR: Regular rate and rhythm without murmurs rubs or gallops. ABDOMINAL: Soft, nontender, nondistended, normal bowel sounds MUSCULOSKELETAL: Moves all extremities. Strength/ROM intact, No edema, No calf tenderness. NEURO: Alert. Cranial nerves II through XII intact. SKIN: Warm, dry. Normal Color Course Course Emergency Course: Patient felt improved treatment and is requesting discharge to home. Vital Signs Vital signs: Vital Signs Temperature 97.2 F L 02/27/24 07:01 Pulse Rate 90 02/27/24 07:01 Respiratory Rate 20 02/27/24 07:01 Blood Pressure 106/63 02/27/24 07:01 Pulse Oximetry 99 02/27/24 07:01 Oxygen Delivery Room Air 02/27/24 07:01 Temperature 97.2 F L 02/27/24 07:01 Pulse Rate 86 02/27/24 09:27 Respiratory Rate 19 02/27/24 09:27 Blood Pressure 98/56 L 02/27/24 09:27 Pulse Oximetry 100 02/27/24 09:27 Oxygen Delivery Room Air 02/27/24 07:01 Medical Decision Making MDM Narrative Medical decision making narrative: 23-year-old female present to the emergency department for evaluation for persistent nausea vomiting. And is afebrile but does have a leukocytosis of 15.4 with a stable hemoglobin. No significant abnormalities on her CMP. No evidence of infection on the UA. Patient did have ketones. Patient was treated with 2 L of IV fluids and did feel improved with treatment. Patient is now requesting discharge
[2024-02-27 07:56] LABS: Alanine Aminotransferase 21 U/L (6-35); Albumin Level 4.4 g/dL (3.5-5.1); Alkaline Phosphatase 45 U/L (38-126); Anion Gap 13 mmol/L (4-12); Aspartate Amino Transferase 30 U/L (14-36); Bilirubin,Total 1.2 mg/dL (0.2-1.3); Blood Urea Nitrogen 10 mg/dL (7-17); Calcium 9.3 mg/dL (8.4-10.2); Carbon Dioxide 21 mmol/L (22-30); Chloride 102 mmol/L (98-107); Estimated CRCL calculation 112 ml/min; Estimated Glomerular Filt Rate > 60; Glucose 116 mg/dL (65-110); Potassium 3.4 mmol/L (3.4-5.0); Sodium 136 mmol/L (137-145)
[2024-02-27 08:48] LABS: Appearance Urine Cloudy (Clear); Bacteria Urine 2+ /hpf; Bilirubin Urine Negative (Negative); Blood Urine Negative (Negative); Color Urine Dark Yellow (Yellow); Glucose Urine UA Negative (Negative); Ketones Urine 4+ mg/dL (Negative); Leukocyte Esterase Ur Negative LEU/UL (Negative); Need Manual Microscopic Reviewed; Nitrate Urine Negative (Negative); Non Pathogenic Casts 0-2; Protein Urine 2+ mg/dL (Negative); RBC Urine 0-2 /hpf (0-2); Specific Grav Ur 1.028 (1.001-1.035); Squamous Epithelial Cell Urine Moderate /hpf (Few); WBC Urine 0-5 /hpf (0-3); pH Urine 7.5 (5.0-9.0)
[2024-02-27 08:49] LABS: Add Urine Microscopic? NO
== END 2024-02-27 09:27 | disposition home or self-care (01) ==
PROVIDERS: Emergency Provider Emergency Medicine
DX: O26.891 Other specified pregnancy related conditions, first trimester (principal); R11.2 Nausea with vomiting, unspecified; F17.290 Nicotine dependence, other tobacco product, uncomplicated; Z3A.01 Less than 8 weeks gestation of pregnancy
CPT/HCPCS: 36415; 80053; 81003; 85025; 96361; 96374; 99284; J2405; J7030

== ENCOUNTER 2024-03-19 08:19 | Emergency (ER) | payer OTHER, SELFPAY ==
[2024-03-19 08:23] VITALS: BP 108/69; PULSE 71; RESP 18; TEMP 36.8; O2SAT 100
[2024-03-19 08:35] LABS: Basophils Absolute Auto 0.1 K/mm3 (0.0-0.1); Basophils Percent Auto 0.4 % (0.2-1.2); Eosinophils Absolute Auto 0.1 K/mm3 (0-0.3); Eosinophils Percent Auto 0.6 % (0-4.4); Hematocrit 41.2 % (37.0-47.0); Hemoglobin 13.8 g/dL (12.0-15.0); Immature Granulocyte Absolute 0.06 K/mm3 (0.00-0.031); Immature Granulocyte Percent A 0.5 % (0-0.5); Lymphocytes Absolute Auto 1.85 K/mm3 (0.9-3.2); Lymphocytes Percent Auto 14.5 % (18.3-44.2); Mean Corpuscular HGB Conc 33.5 g/dl (32-36); Mean Corpuscular Hemoglobin 28.2 pg (26-34); Mean Corpuscular Volume 84.1 fl (80-100); Mean Platelet Volume 9.8 fl (7.4-10.4); Monocytes Absolute Auto 0.4 K/mm3 (0.1-0.6); Neutrophils Absolute Auto 10.3 K/mm3 (1.3-6.7); Platelet Count Result 298 k/mm3 (150-375); Red Cell Distribution Width 13.7 % (11.5-14.5); White Blood Count 12.8 K/mm3 (4.5-10.0)
--- NOTE | 2024-03-19 08:40 | ED.GENADULT ---
HPI - General Adult General Chief complaint: Nausea/Vomiting/Diarrhea Stated complaint: vomiting, chills Time Seen by Provider: 03/19/24 08:26 History of Present Illness HPI narrative: 23-year-old female presenting to the emergency department for evaluation for persistent nausea and vomiting. Patient is approximately 10 weeks . Patient has had recurrent issues nausea and vomiting. Patient states she has been improved last few days with an acutely worsened again today. Patient denies any vaginal bleeding vaginal discharge. Patient does smoke THC daily. Related Data Allergies Allergy/AdvReac Type Severity Reaction Status Date / Time carbamazepine Allergy Intermediate Rash Verified 03/19/24 08:27 Review of Systems Review of Systems: All systems reviewed & are unremarkable except as noted in HPI and below PMFSH Past Medical History Medical History (Updated 03/19/24 @ 10:14 by Daniel Allen MD) Bipolar disorder COVID-19 History of iron deficiency anemia Sensory disorder Sinusitis chronic, frontal Surgical History Surgical History History of tonsillectomy Family History Family History Other No significant family history Social History Social History (Updated 07/05/23 @ 11:00 by Mandy Mart MA) Smoking status: Current every day smoker Tobacco type: e-cigarettes/vaping Alcohol intake: never Substance use: current Substance use type: marijuana Lack of Transportation: No Lack of Food: Sometimes True Current Housing: Decline to Answer Concerned About Future Housing: Decline to Answer Difficulty Paying Gas/Electric Bills: No Difficulty Paying for Meds: No Currently Unemployed: YES Education: High School Diploma/GED Difficulty w/ Childcare or Family Care: No Living arrangements: with family Occupation/Education: student Gender identity (if verbalized by the patient): Female Spiritual care concerns: No Exam Narrative: APPEARANCE: Well appearing, no pain, no distress, well-nourished. HEAD: normocephalic, atraumatic. EYES: PERRLA/EOMI, conjunctivae clear. NOSE: Normal no drainage EARS:TMS clear with good light reflex. THROAT: Pharynx clear, no exudate. NECK: Supple. No adenopathy, no masses. RESPIRATORY: Airway patent, respirations nonlabored. Clear to auscultation bilaterally, no rales, rhonchi, wheezing. CARDIOVASCULAR: Regular rate and rhythm without murmurs rubs or gallops. ABDOMINAL: Soft, nontender, nondistended, normal bowel sounds MUSCULOSKELETAL: Moves all extremities. Strength/ROM intact, No edema, No calf tenderness. NEURO: Alert. Cranial nerves II through XII intact. Grossly intact SKIN: Warm, dry. Normal Color Course Vital Signs Vital signs: Vital Signs Temperature 98.3 F 03/19/24 08:23 Pulse Rate 71 03/19/24 08:23 Respiratory Rate 18 03/19/24 08:23 Blood Pressure 108/69 03/19/24 08:23 Pulse Oximetry 100 03/19/24 08:23 Oxygen Delivery Room Air 03/19/24 08:23 Temperature 98.3 F 03/19/24 08:23 Pulse Rate 80 03/19/24 10:17 Respiratory Rate 16 03/19/24 10:17 Blood Pressure 122/74 03/19/24 10:17 Pulse Oximetry 98 03/19/24 10:17 Oxygen Delivery Room Air 03/19/24 08:23 Medical Decision Making MDM Narrative Medical decision making narrative: 23-year-old female presenting to the emergency department for persistent nausea vomiting. Patient was treated with IV fluids and Zofran and does feel significantly improved. Patient is watching discharged home. Patient was at afebrile but does have a leukocytosis 12.8, no significant abnormalities on the CMP lipase was mildly elevated at 605. Patient had no reproducible epigastric tenderness to palpation. Urine was negative for infection. Differential Diagnosis Differential Diagnosis: Hyperemesis gravidarum, can emboli hemorrhage stat
[2024-03-19 08:48] LABS: Alanine Aminotransferase 17 U/L (6-35); Alkaline Phosphatase 42 U/L (38-126); Anion Gap 9 mmol/L (4-12); Aspartate Amino Transferase 26 U/L (14-36); Bilirubin,Total 0.4 mg/dL (0.2-1.3); Blood Urea Nitrogen 6 mg/dL (7-17); Calcium 8.7 mg/dL (8.4-10.2); Carbon Dioxide 24 mmol/L (22-30); Chloride 100 mmol/L (98-107); Estimated Glomerular Filt Rate > 60; Glucose 98 mg/dL (65-110); Lipase 605 U/L (23-300); Potassium 3.4 mmol/L (3.4-5.0); Sodium 133 mmol/L (137-145)
[2024-03-19] MEDS: ONDANSETRON INJ 4 MG/2 ML VIAL IV PUSH (08:48)
[2024-03-19] MEDS: SODIUM CHLORIDE 0.9% IV 1,000 ML 999 ML IV CONT ×2 (08:48→09:08)
[2024-03-19 09:55] LABS: Add Urine Microscopic? NO; Appearance Urine Clear (Clear); Bilirubin Urine Negative (Negative); Blood Urine Negative (Negative); Color Urine Yellow (Yellow); Glucose Urine UA Negative (Negative); Ketones Urine Negative (Negative); Leukocyte Esterase Ur Negative LEU/UL (Negative); Nitrate Urine Negative (Negative); Protein Urine Negative (Negative); Specific Grav Ur 1.007 (1.001-1.035); Urobilinogen Urine 0.2 mg/dL (<2.0)
[2024-03-19 10:17] VITALS: BP 122/74; PULSE 80; RESP 16; O2SAT 98
== END 2024-03-19 10:20 | disposition home or self-care (01) ==
PROVIDERS: Emergency Provider Emergency Medicine
DX: R11.2 Nausea with vomiting, unspecified (principal); F17.290 Nicotine dependence, other tobacco product, uncomplicated; F31.9 Bipolar disorder, unspecified
CPT/HCPCS: 36415; 80053; 81003; 83690; 85025; 96361; 96374; 99284; J2405; J7030

== ENCOUNTER 2024-03-30 08:42 | Emergency (ER) | payer OTHER, SELFPAY ==
--- NOTE | 2024-03-30 08:43 | ED.GENADULT ---
HPI - General Adult General Chief complaint: Dental/Oral Stated complaint: Dental Pain/ Time Seen by Provider: 03/30/24 09:15 Source: patient, RN notes reviewed and old records reviewed Mode of arrival: ambulatory Limitations: no limitations History of Present Illness HPI narrative: 23-year-old female presents to the [facility] with left lower dental discomfort. Patient reports that the pain, swelling started 2 days ago. Has been taking Tylenol and using peroxide to rinse her mouth. Reports that she has seen a dental provider and received in no that her OB has to sign for treatment of her teeth. Reports being 12 weeks Onset (ago): day(s) (2) Treatments prior to arrival: other (Tylenol, peroxide) Related Data Home Medications Medication Instructions Recorded Confirmed vitamins no.119-iron tablet PO 03/30/24 fumarate 29 mg-folic acid 1 mg tablet (Se-[id number]) Allergies Allergy/AdvReac Type Severity Reaction Status Date / Time carbamazepine Allergy Intermediate Rash Verified 03/30/24 09:06 Review of Systems Review of Systems: All systems reviewed & are unremarkable except as noted in HPI and below Constitutional: Constitutional: Reports no additional constitutional complaints Eyes: Eyes: Reports no additional eye complaints ENT: Reports as per HPI, Reports dental pain and Reports facial pain Cardiovascular: Cardiovascular: Reports no additional cardiovascular complaints, Denies chest pain and Denies dyspnea Respiratory: Respiratory: Reports no additional respiratory complaints, Denies chest congestion, Denies cough and Denies dyspnea Gastrointestinal: Gastrointestinal: Reports no additional gastrointestinal complaints, Denies abdominal pain, Denies nausea and Denies vomiting Musculoskeletal: Musculoskeletal: Reports no additional musculoskeletal complaints Integumentary/Breasts: Skin/Breast: Reports system reviewed and no additional complaints, except as docu Neurologic: Reports system reviewed and no additional complaints, except as documented Psychiatric: Psychiatric: Reports no additional psychiatric complaints Allergic/Immunologic: Allergic/Immunologic: Reports no additional allergic/immunologic complaints PMFSH Past Medical History Medical History Bipolar disorder COVID-19 History of iron deficiency anemia Sensory disorder Sinusitis chronic, frontal Surgical History Surgical History History of tonsillectomy Family History Family History Other No significant family history Social History Social History Smoking status: Current every day smoker Tobacco type: e-cigarettes/vaping Alcohol intake: never Substance use: current Substance use type: marijuana Lack of Transportation: No Lack of Food: Sometimes True Current Housing: Decline to Answer Concerned About Future Housing: Decline to Answer Difficulty Paying Gas/Electric Bills: No Difficulty Paying for Meds: No Currently Unemployed: YES Education: High School Diploma/GED Difficulty w/ Childcare or Family Care: No Living arrangements: with family Occupation/Education: student Gender identity (if verbalized by the patient): Female Spiritual care concerns: No Comments At the time of my signature, I reviewed and agree with the nursing past medical, surgical, social, and family history. There is no relevant family history pertinent to the patient complaint. Exam Const: General: cooperative, healthy appearing, comfortable, no acute distress, well developed, alert and well nourished Nutritional Appearance: well nourished Orientation/consciousness: patient oriented x3 Limitations: no limitations HENMT: Head: normal to inspection Ears: hearing grossly normal
[2024-03-30 08:50] VITALS: BP 122/60; PULSE 98; RESP 19; TEMP 36.9; O2SAT 100
== END 2024-03-30 09:35 | disposition home or self-care (01) ==
PROVIDERS: Emergency Provider Nurse Practitioner
DX: O99.611 Diseases of the digestive system complicating pregnancy, first trimester (principal); Z3A.12 12 weeks gestation of pregnancy; K04.7 Periapical abscess without sinus; O9A.211 Injury, poisoning and certain other consequences of external causes complicating pregnancy, first trimester; S02.5XXA Fracture of tooth (traumatic), initial encounter for closed fracture; X58.XXXA Exposure to other specified factors, initial encounter; O99.331 Smoking (tobacco) complicating pregnancy, first trimester; F17.290 Nicotine dependence, other tobacco product, uncomplicated; O99.321 Drug use complicating pregnancy, first trimester; F12.90 Cannabis use, unspecified, uncomplicated; Z86.16 Personal history of COVID-19
CPT/HCPCS: 99213; G0463

== ENCOUNTER 2024-04-16 01:40 | Emergency (ER) | payer OTHER, SELFPAY ==
[2024-04-16 01:43] VITALS: BP 104/64; PULSE 72; RESP 18; TEMP 36.9; O2SAT 100
== END 2024-04-16 02:00 | disposition left against medical advice (07) ==
LOC: ANHED 03:22
DX: O26.892 Other specified pregnancy related conditions, second trimester (principal); Z3A.14 14 weeks gestation of pregnancy
CPT/HCPCS: 99199

== ENCOUNTER 2024-05-21 09:08 | Emergency (ER) | payer OTHER, SELFPAY ==
[2024-05-21 09:07] VITALS: BP 115/61; PULSE 70; RESP 18; TEMP 36.4; O2SAT 100
[2024-05-21] MEDS: diphenhydrAMINE HCl INJ 50 MG/ML VIAL 25 MG IV PUSH (09:29)
[2024-05-21] MEDS: METOCLOPRAMIDE HCL INJ 10 MG/2 ML VIAL IV PUSH (09:29)
[2024-05-21 09:30] LABS: Basophils Percent Auto 0.3 % (0.2-1.2); Eosinophils Absolute Auto 0.1 K/mm3 (0-0.3); Eosinophils Percent Auto 0.7 % (0-4.4); Hematocrit 34.6 % (37.0-47.0); Hemoglobin 11.9 g/dL (12.0-15.0); Immature Granulocyte Absolute 0.11 K/mm3 (0.00-0.031); Lymphocytes Absolute Auto 1.67 K/mm3 (0.9-3.2); Lymphocytes Percent Auto 14.5 % (18.3-44.2); Mean Corpuscular HGB Conc 34.4 g/dl (32-36); Mean Corpuscular Hemoglobin 28.8 pg (26-34); Mean Corpuscular Volume 83.8 fl (80-100); Mean Platelet Volume 9.8 fl (7.4-10.4); Monocytes Absolute Auto 0.4 K/mm3 (0.1-0.6); Monocytes Percent Auto 3.2 % (2.6-8.5); Neutrophils Absolute Auto 9.3 K/mm3 (1.3-6.7); Neutrophils Percent Auto 80.3 % (45.5-73.1); Platelet Count Result 268 k/mm3 (150-375); Red Blood Count 4.13 M/mm3 (4.2-5.4); Red Cell Distribution Width 13.5 % (11.5-14.5); White Blood Count 11.5 K/mm3 (4.5-10.0)
[2024-05-21] MEDS: SODIUM CHLORIDE 0.9% IV 1,000 ML 999 ML IV CONT ×2 (09:31→11:05)
--- NOTE | 2024-05-21 09:36 | ED.NAVMDI ---
HPI - Nausea/Vomiting/Diarrhea General Chief complaint: Nausea/Vomiting/Diarrhea Stated complaint: N/V Time Seen by Provider: 05/21/24 09:14 Source: patient Mode of arrival: EMS Limitations: no limitations History of Present Illness HPI Narrative: Patient is a 23-year-old female who presents the ED via EMS with report of nausea and vomiting. Patient is and currently around 19 weeks gestation. She sees Sakina Cantrell with [facility]. She has had persistent issues with nausea and vomiting throughout her , but states symptoms became worse this morning. She has been unable to keep down any food or drink. reports diffuse abdominal cramping , diarrhea. She is still feeling baby move. Denies vaginal bleeding. Denies fevers, cough or cold symptoms. Related Data Home Medications Medication Instructions Recorded Confirmed vitamins no.119-iron tablet PO 03/30/24 fumarate 29 mg-folic acid 1 mg tablet (Se-Kwasi-19) Allergies Allergy/AdvReac Type Severity Reaction Status Date / Time carbamazepine Allergy Intermediate Rash Verified 03/30/24 09:06 Review of Systems Review of Systems: All systems reviewed & are unremarkable except as noted in HPI. All systems reviewed & are unremarkable except as noted in HPI and below PMFSH Past Medical History Medical History Bipolar disorder COVID-19 History of iron deficiency anemia Sensory disorder Sinusitis chronic, frontal Surgical History Surgical History History of tonsillectomy Family History Family History Other No significant family history Social History Social History Smoking status: Current every day smoker Tobacco type: e-cigarettes/vaping Alcohol intake: never Substance use: current Substance use type: marijuana Lack of Transportation: No Lack of Food: Sometimes True Current Housing: Decline to Answer Concerned About Future Housing: Decline to Answer Difficulty Paying Gas/Electric Bills: No Difficulty Paying for Meds: No Currently Unemployed: YES Education: High School Diploma/GED Difficulty w/ Childcare or Family Care: No Living arrangements: with family Occupation/Education: student Gender identity (if verbalized by the patient): Female Spiritual care concerns: No Exam Narrative: GENERAL: Well appearing, thin, non-toxic, in no acute distress. HEAD: Normocephalic, atraumatic. RESPIRATORY: Airway patent, respirations nonlabored. Clear to auscultation bilaterally, no rales, rhonchi, wheezing. CARDIOVASCULAR: Regular rate and rhythm without murmurs, rubs, or gallops. ABDOMINAL: Soft, minimal diffuse tenderness. No significant focal tenderness. Uterus is gravid just below umbilicus. Normoactive BS. MUSCULOSKELETAL: Moves all extremities. No gross deformities. SKIN: Warm, dry, normal color. NEURO: A&O X3. Speech clear. PSYCHIATRIC: Appropriate mood and affect. Normal interaction. Course Vital Signs Vital signs: Vital Signs Temperature 97.6 F 05/21/24 09:07 Pulse Rate 70 05/21/24 09:07 Respiratory Rate 18 05/21/24 09:07 Blood Pressure 115/61 05/21/24 09:07 Pulse Oximetry 100 05/21/24 09:07 Oxygen Delivery Room Air 05/21/24 09:07 Temperature 98.0 F 05/21/24 12:19 Pulse Rate 81 05/21/24 12:19 Respiratory Rate 17 05/21/24 12:19 Blood Pressure 112/76 05/21/24 12:19 Pulse Oximetry 100 05/21/24 12:19 Oxygen Delivery Room Air 05/21/24 09:07 MDM - Nausea/Vomiting/Diarrhea MDM Narrative Medical decision making narrative: patient presented to ED persistent nausea and vomiting, onset this morning. Currently 19 weeks gestation. Has had issues with vomiting throughout . She is still feel
[2024-05-21 09:40] LABS: Alanine Aminotransferase 13 U/L (6-35); Albumin Level 3.8 g/dL (3.5-5.1); Alkaline Phosphatase 50 U/L (38-126); Anion Gap 8 mmol/L (4-12); Aspartate Amino Transferase 22 U/L (14-36); Bilirubin,Total 0.4 mg/dL (0.2-1.3); Blood Urea Nitrogen 9 mg/dL (7-17); Calcium 8.9 mg/dL (8.4-10.2); Carbon Dioxide 22 mmol/L (22-30); Chloride 103 mmol/L (98-107); Estimated CRCL calculation 117 ml/min; Estimated Glomerular Filt Rate > 60; Glucose 113 mg/dL (65-110); Lipase 80 U/L (23-300); Potassium 3.2 mmol/L (3.4-5.0); Sodium 133 mmol/L (137-145)
[2024-05-21 09:55] LABS: Add Urine Microscopic? YES; Appearance Urine Turbid (Clear); Bacteria Urine 2+ /hpf; Bilirubin Urine Negative (Negative); Blood Urine 2+ (Negative); Color Urine Yellow (Yellow); Glucose Urine UA Negative (Negative); Ketones Urine 1+ mg/dL (Negative); Leukocyte Esterase Ur Trace LEU/UL (Negative); Need Manual Microscopic Reviewed; Nitrate Urine Negative (Negative); Non Pathogenic Casts 0-2; Protein Urine Trace mg/dL (Negative); RBC Urine 51-100 /hpf (0-2); Specific Grav Ur 1.021 (1.001-1.035); Squamous Epithelial Cell Urine Few /hpf (Few); Urobilinogen Urine 0.2 mg/dL (<2.0)
[2024-05-21 09:58] LABS: Amorphous Sediment Urine Moderate
[2024-05-21 10:00] VITALS: BP 106/68; PULSE 65; RESP 16; O2SAT 99
[2024-05-21 10:31] LABS: Magnesium 1.5 mg/dL (1.6-2.3)
[2024-05-21 10:46] VITALS: BP 112/72; PULSE 67; RESP 13; O2SAT 100
[2024-05-21] MEDS: MAGNESIUM SULF 2 GM/WATER 50ML 2 GM/50 ML BAG IVPB (11:03)
[2024-05-21] MEDS: CEPHALEXIN 500 MG CAPSULE PO (11:05)
[2024-05-21] MEDS: POTASSIUM CHLORIDE 20 MEQ ER TABLET 40 MEQ PO (11:05)
[2024-05-21 11:16] VITALS: BP 111/66; PULSE 69; RESP 15; O2SAT 100
[2024-05-21 12:19] VITALS: BP 112/76; PULSE 81; RESP 17; TEMP 36.7; O2SAT 100
== END 2024-05-21 12:20 | disposition home or self-care (01) ==
PROVIDERS: Emergency Provider Physician Assistant
DX: O21.9 Vomiting of pregnancy, unspecified (principal); O23.42 Unspecified infection of urinary tract in pregnancy, second trimester; N39.0 Urinary tract infection, site not specified; O99.332 Smoking (tobacco) complicating pregnancy, second trimester; F17.290 Nicotine dependence, other tobacco product, uncomplicated; Z3A.19 19 weeks gestation of pregnancy; Z86.16 Personal history of COVID-19; Z86.2 Personal history of diseases of the blood and blood-forming organs and certain disorders involving the immune mechanism
CPT/HCPCS: 36415; 80053; 81001; 83690; 83735; 85025; 87086; 96361; 96365; 96375; 99284; A9270; J1200; J2765; J3475; J7030

== ENCOUNTER 2024-05-30 19:29 | Emergency (ER) | payer OTHER, SELFPAY ==
[2024-05-30] VITALS (12 sets, daily range): BP systolic 91–119; BP diastolic 53–68; PULSE 68–99; RESP 16–20; TEMP 36.8; O2SAT 97–100
[2024-05-30 19:53] LABS: Basophils Percent Auto 0.3 % (0.2-1.2); Eosinophils Percent Auto 0.2 % (0-4.4); Hematocrit 38.2 % (37.0-47.0); Hemoglobin 13.2 g/dL (12.0-15.0); Immature Granulocyte Absolute 0.06 K/mm3 (0.00-0.031); Immature Granulocyte Percent A 0.5 % (0-0.5); Lymphocytes Absolute Auto 1.27 K/mm3 (0.9-3.2); Lymphocytes Percent Auto 10.7 % (18.3-44.2); Mean Corpuscular HGB Conc 34.6 g/dl (32-36); Mean Corpuscular Hemoglobin 28.8 pg (26-34); Mean Corpuscular Volume 83.4 fl (80-100); Monocytes Absolute Auto 0.4 K/mm3 (0.1-0.6); Monocytes Percent Auto 2.9 % (2.6-8.5); Neutrophils Absolute Auto 10.2 K/mm3 (1.3-6.7); Neutrophils Percent Auto 85.4 % (45.5-73.1); Platelet Count Result 291 k/mm3 (150-375); Red Blood Count 4.58 M/mm3 (4.2-5.4); Red Cell Distribution Width 13.4 % (11.5-14.5); White Blood Count 11.9 K/mm3 (4.5-10.0)
[2024-05-30 20:01] LABS: Alanine Aminotransferase 17 U/L (6-35); Albumin Level 4.2 g/dL (3.5-5.1); Alkaline Phosphatase 61 U/L (38-126); Anion Gap 14 mmol/L (4-12); Aspartate Amino Transferase 26 U/L (14-36); Bilirubin,Total 0.9 mg/dL (0.2-1.3); Blood Urea Nitrogen 7 mg/dL (7-17); Calcium 9.3 mg/dL (8.4-10.2); Carbon Dioxide 18 mmol/L (22-30); Chloride 101 mmol/L (98-107); Estimated Glomerular Filt Rate > 60; Glucose 111 mg/dL (65-110); Lipase 97 U/L (23-300); Potassium 3.2 mmol/L (3.4-5.0); Sodium 133 mmol/L (137-145)
--- NOTE | 2024-05-30 20:07 | ED.NAVMDI ---
HPI - Nausea/Vomiting/Diarrhea General Chief complaint: Nausea/Vomiting/Diarrhea Stated complaint: vomiting, can't keep food down, 21 weeks Time Seen by Provider: 05/30/24 19:56 Source: patient Mode of arrival: ambulatory Limitations: no limitations History of Present Illness HPI Narrative: this is a 23-year-old female who is approximately 21 weeks , and presents to the ED for chief complaint of nausea and vomiting x1 day. Reports she started feeling a little nauseous last night but a worsened greatly this morning. She states she has had numerous episodes of vomiting today. She states that she then started to have some lower abdominal cramping. She does attribute this to muscle pain from vomiting. Reports that she had similar symptoms last week and was here in the ED for this. She has been on a week's worth of Keflex for possible UTI. states that she has been prescribed nausea medications but he usually does not have to take any and will come here if she gets nauseous. Denies fevers, chills, diarrhea, vaginal bleeding, chest pain, shortness of breath. 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 states that she had anatomy scan last week and was told everything was looking normal. Related Data Home Medications Medication Instructions Recorded Confirmed vitamins no.119-iron tablet PO 03/30/24 fumarate 29 mg-folic acid 1 mg tablet (Se-Kwasi-19) Allergies Allergy/AdvReac Type Severity Reaction Status Date / Time carbamazepine Allergy Intermediate Rash Verified 05/30/24 19:45 Review of Systems Review of Systems: All systems as dictated in HPI COUNTS INCLUDE 234 BEDS AT THE [facility] Past Medical History Medical History Bipolar disorder COVID-19 History of iron deficiency anemia Sensory disorder Sinusitis chronic, frontal Surgical History Surgical History History of tonsillectomy Family History Family History Other No significant family history Social History Social History Smoking status: Current every day smoker Tobacco type: e-cigarettes/vaping Alcohol intake: never Substance use: current Substance use type: marijuana Lack of Transportation: No Lack of Food: Sometimes True Current Housing: Decline to Answer Concerned About Future Housing: Decline to Answer Difficulty Paying Gas/Electric Bills: No Difficulty Paying for Meds: No Currently Unemployed: YES Education: High School Diploma/GED Difficulty w/ Childcare or Family Care: No Living arrangements: with family Occupation/Education: student Gender identity (if verbalized by the patient): Female Spiritual care concerns: No Exam Narrative: GENERAL: Well-appearing, well-nourished, and in no acute distress. HEAD: Normocephalic, atraumatic. EYES: PERRLA and EOMI. ENT: Nares clear, no rhinorrhea or epistaxis. Mucous membranes moist. Oropharynx without tonsillar hypertrophy exudate or other lesions. NECK: Supple. No adenopathy or masses. CHEST: No respiratory distress. Clear to auscultation. No wheezes rales or rhonchi HEART: Regular rate and rhythm. No murmur heard. Normal peripheral pulses. ABDOMEN: Gravid abdomen. Soft, nontender, nondistended, normal active bowel sounds. Negative flank tenderness bilaterally. MSK: Normal range of motion. No edema. SKIN: Warm, dry, no rash. NEURO: Alert and oriented x4. No focal deficits. PSYCH: Normal mood and affect. Course Vital Signs Vital signs: Vital Signs Pulse Oximetry 100 05/30/24 19:35 Temperature 98.3 F 05/30/24 19:43 Pulse Rate 70 05/30/24 23:31 Respiratory Rate 16 05/30/24 23:31 Blood Pressure 98/53 L 05/30/24 23:31 Pulse Oximetry 97 05/30/24 23:31 Oxygen Delivery Room Air 05/30/24 19:43 MDM - Nausea/Vomiting/Diarrhea MDM Narrative Medical decision making narrative: This is a 23-year-old female who presents to the ED for chief complaint of N/V during . She is 20 weeks . Vitals are normal. Exam remarkable for the above. No abdominal tenderness. Patient is audibly retching and dry heaving on arrival. She was seen last week the same complaints. CBC unremarkable. CMP does show slightly low potassium at 3.2, low bicarb and slightly anion gap. Consistent with likely starvation ketosis. Magnesium slightly low at 1.5. Patient was given LR, D5 half-normal saline, Zofran, Benadryl and Reglan with relief of her symptoms. Patient was also given potassium repletion with a g of Mag. OB nurse was able to evaluate the patient and found good heart tones. Pt will be discharged in stable condition. Return precautions given and supportive measures discussed. Pt is understanding and agreeable with plan for discharge and follow-up with PCP/OB Lab Data 05/30/24 19:47 05/30/24 19:47 Labs: Lab Results 05/30/24 Range/Units 19:47 WBC 11.9 H (4.5-10.0) K/mm3 RBC 4.58 (4.2-5.4) M/mm3 Hgb 13.2 (12.0-15.0) g/dL Hct 38.2 (37.0-47.0) % MCV 83.4 (80-100) fl MCH 28.8 (26-34) pg MCHC 34.6 (32-36) g/dl RDW 13.4 (11.5-14.5) % Plt Count 291 (150-375) k/mm3 MPV 10.0 (7.4-10.4) fl Immature Gran % (Auto) 0.5 (0-0.5) % Neut % (Auto) 85.4 H (45.5-73.1) % Lymph % (Auto) 10.7 L (18.3-44.2) % [place] % (Auto) 2.9 (2.6-8.5) % Eos % (Auto) 0.2 (0-4.4) % Baso % (Auto) 0.3 (0.2-1.2) % Lymph # (Auto) 1.27 (0.9-3.2) K/mm3 [place] # (Auto) 0.4 (0.1-0.6) K/mm3 Eos # (Auto) 0.0 (0-0.3) K/mm3 Baso # (Auto) 0.0 (0.0-0.1) K/mm3 Abs Immat Gran (auto) 0.06 H (0.00-0.031) K/mm3 Absolute Neuts (auto) 10.2 H (1.3-6.7) K/mm3 Absolute Nucleated RBC 0.000 (0.0-0.012) K/mm3 Nucleated RBC % 0.0 (0.0-0.2) % Sodium 133 L (137-145) mmol/L Potassium 3.2 L (3.4-5.0) mmol/L Chloride 101 (98-107) mmol/L Carbon Dioxide 18 L (22-30) mmol/L Anion Gap 14 H (4-12) mmol/L BUN 7 (7-17) mg/dL Creatinine 0.50 L (0.7-1.0) mg/dL Estim Creat Clear Calc Not Reportable Estimated GFR > 60 (59 - ) Glucose 111 H (65-110) mg/dL Calcium 9.3 (8.4-10.2) mg/dL Phosphorus 3.0 (2.5-4.5) mg/dL Magnesium 1.5 L (1.6-2.3) mg/dL Total Bilirubin 0.9 (0.2-1.3) mg/dL AST 26 (14-36) U/L ALT 17 (6-35) U/L Alkaline Phosphatase 61 (38-126) U/L Total Protein 8.0 (6.3-8.2) g/dL Albumin 4.2 (3.5-5.1) g/dL Lipase 97 (23-300) U/L Discharge Plan Discharge Clinical Impression: Nausea and vomiting during Patient Disposition: Home, Self-Care Condition: Stable Instructions: Antibiotic Form Additional Instructions: your exam today showed evidence of dehydration with the nausea and vomiting. Please stay well hydrated at home, use oral Zofran for nausea. Make sure that your taking vitamin B6 every day to try to prevent nausea. Follow-up with OB this issue. If you have any new or worsening symptoms please return to the ER for further evaluation. Prescriptions: New ondansetron 4 mg tablet,disintegrating 4 mg PO Q8H PRN (Reason: nausea and vomiting) Qty: 10 0RF No Action Se--19 29 mg iron- 1 mg tablet PO amoxicillin 875 mg tablet 875 mg PO Q12H Qty: 20 0RF cephalexin 500 mg capsule 500 mg PO Q6H 7 Days Qty: 28 0RF Follow-up/Referrals: UNKNOWN,DOCTOR [Primary Care Provider] - Time of Disposition: 22:26
[2024-05-30] MEDS: ONDANSETRON INJ 4 MG/2 ML VIAL IV PUSH (20:13)
[2024-05-30] MEDS: diphenhydrAMINE HCl INJ 50 MG/ML VIAL IV PUSH (20:16)
[2024-05-30] MEDS: LACTATED RINGERS 1,000 ML 999 ML IV CONT (20:22)
[2024-05-30 20:34] LABS: Magnesium 1.5 mg/dL (1.6-2.3)
[2024-05-30] MEDS: MAGNESIUM SULF 1 GM/D5W 100 ML 1 GM/100 ML BAG IVPB (21:00)
[2024-05-30] MEDS: METOCLOPRAMIDE HCL INJ 10 MG/2 ML VIAL IV PUSH (21:12)
[2024-05-30] MEDS: DEXTROSE 5%/0.45% SOD CHL 1,000 ML 250 ML IV CONT (22:00)
[2024-05-30] MEDS: KCL 20 MEQ/SW 100 ML 100 ML 50 MEQ IVPB (22:01)
== END 2024-05-31 00:25 | disposition home or self-care (01) ==
PROVIDERS: Student in an Organized Health Care Education/Training Program; Emergency Provider Physician Assistant
DX: O21.9 Vomiting of pregnancy, unspecified (principal); O99.332 Smoking (tobacco) complicating pregnancy, second trimester; F17.290 Nicotine dependence, other tobacco product, uncomplicated; Z3A.21 21 weeks gestation of pregnancy; Z86.16 Personal history of COVID-19
CPT/HCPCS: 36415; 80053; 83690; 83735; 84100; 85025; 96361; 96365; 96366; 96367; 96368; 96375; 99284; J1200; J2405; J2765; J3475; J3480; J7120

== ENCOUNTER 2024-06-16 21:08 | Outpatient (RCR) | payer OTHER, SELFPAY ==
[2024-06-16 22:05] VITALS: BP 114/66; PULSE 80
--- NOTE | 2024-06-16 22:07 | PC.NURSE ---
Called Dr. Emmanuel, update on pt, decreased movement, pt marking movement, and tracing. Orders received to discharge pt with instructions to keep next scheduled appointment and when to return to the unit.
== END 2024-09-14 23:59 | disposition home or self-care (01) ==
LOC: ANHOBOP 21:08
PROVIDERS: Visit Provider Obstetrics & Gynecology
DX: O36.8120 Decreased fetal movements, second trimester, not applicable or unspecified (principal); Z3A.23 23 weeks gestation of pregnancy
CPT/HCPCS: 59025

== ENCOUNTER 2024-07-10 13:09 | Emergency (ER) | payer BC, OTHER, SELFPAY ==
[2024-07-10 13:25] VITALS: BP 93/58; PULSE 88; RESP 20; TEMP 36.8; O2SAT 100
[2024-07-10 14:00] LABS: Basophils Absolute Auto 0.1 K/mm3 (0.0-0.1); Basophils Percent Auto 0.3 % (0.2-1.2); Eosinophils Percent Auto 0.1 % (0-4.4); Hematocrit 36.4 % (37.0-47.0); Hemoglobin 12.4 g/dL (12.0-15.0); Immature Granulocyte Absolute 0.11 K/mm3 (0.00-0.031); Immature Granulocyte Percent A 0.8 % (0-0.5); Lymphocytes Percent Auto 6.8 % (18.3-44.2); Mean Corpuscular HGB Conc 34.1 g/dl (32-36); Mean Corpuscular Hemoglobin 28.2 pg (26-34); Mean Corpuscular Volume 82.7 fl (80-100); Mean Platelet Volume 10.8 fl (7.4-10.4); Monocytes Absolute Auto 0.5 K/mm3 (0.1-0.6); Monocytes Percent Auto 3.6 % (2.6-8.5); Neutrophils Absolute Auto 12.9 K/mm3 (1.3-6.7); Neutrophils Percent Auto 88.4 % (45.5-73.1); Platelet Count Result 237 k/mm3 (150-375); Red Cell Distribution Width 13.2 % (11.5-14.5); White Blood Count 14.6 K/mm3 (4.5-10.0)
[2024-07-10] MEDS: METOCLOPRAMIDE HCL INJ 10 MG/2 ML VIAL IV PUSH ×2 (14:00→17:30)
[2024-07-10] MEDS: SODIUM CHLORIDE 0.9% IV 1,000 ML 999 ML IV CONT ×3 (14:00→17:30)
[2024-07-10] MEDS: diphenhydrAMINE HCl INJ 50 MG/ML VIAL 25 MG IV PUSH (14:01)
[2024-07-10 14:09] LABS: Alanine Aminotransferase 17 U/L (6-35); Albumin Level 4.1 g/dL (3.5-5.1); Alkaline Phosphatase 76 U/L (38-126); Anion Gap 6 mmol/L (4-12); Aspartate Amino Transferase 31 U/L (14-36); Bilirubin,Total 1.1 mg/dL (0.2-1.3); Blood Urea Nitrogen 9 mg/dL (7-17); Calcium 8.9 mg/dL (8.4-10.2); Carbon Dioxide 24 mmol/L (22-30); Chloride 104 mmol/L (98-107); Estimated CRCL calculation 104 ml/min; Estimated Glomerular Filt Rate > 60; Glucose 130 mg/dL (65-110); Lipase 110 U/L (23-300); Potassium 3.1 mmol/L (3.4-5.0); Sodium 134 mmol/L (137-145)
[2024-07-10 14:54] LABS: Add Urine Microscopic? YES; Appearance Urine Clear (Clear); Bacteria Urine 1+ /hpf; Bilirubin Urine Negative (Negative); Blood Urine Negative (Negative); Color Urine Yellow (Yellow); Glucose Urine UA Trace mg/dL (Negative); Ketones Urine 3+ mg/dL (Negative); Leukocyte Esterase Ur Negative LEU/UL (Negative); Nitrate Urine Negative (Negative); Non Pathogenic Casts 0-2; Protein Urine Trace mg/dL (Negative); RBC Urine 0-2 /hpf (0-2); Specific Grav Ur 1.021 (1.001-1.035); Squamous Epithelial Cell Urine Occasional /hpf (Few); pH Urine 8.5 (5.0-9.0)
--- NOTE | 2024-07-10 15:46 | PC.NURSE ---
pt states nausea medicine did not help, pt is still vomiting.
--- NOTE | 2024-07-10 16:38 | ED_ITS ---
HPI - Nausea/Vomiting/Diarrhea General Chief complaint: Nausea/Vomiting/Diarrhea Stated complaint: 26 wks preg, vomiting Time Seen by Provider: 07/10/24 16:13 History of Present Illness HPI Narrative: 23-year-old female with approximately 26 weeks gestation presenting with nausea and vomiting. States that for the last day she has had diffuse abdominal pain and can not keep anything down. This has happened in the past. Related Data Home Medications ?Medication ?Instructions ?Recorded ?Confirmed ?Last Taken ?Type vitamins no.119-iron tablet PO 03/30/24 Unknown History fumarate 29 mg-folic acid 1 mg tablet (Se--19) Allergies Allergy/AdvReac Type Severity Reaction Status Date / Time carbamazepine Allergy Intermediate Rash Verified 06/16/24 23:12 Review of Systems 2 Review of Systems: All systems reviewed & are unremarkable except as noted in HPI and below PMFSH Past Medical History Medical History Bipolar disorder COVID-19 History of iron deficiency anemia Sensory disorder Sinusitis chronic, frontal Surgical History Surgical History History of tonsillectomy Family History Family History Other No significant family history Social History Social History Smoking status: Current every day smoker Tobacco type: e-cigarettes/vaping Alcohol intake: never Substance use: current Substance use type: marijuana Lack of Transportation: No Lack of Food: Sometimes True Current Housing: Decline to Answer Concerned About Future Housing: Decline to Answer Difficulty Paying Gas/Electric Bills: No Difficulty Paying for Meds: No Currently Unemployed: YES Education: High School Diploma/GED Difficulty w/ Childcare or Family Care: No Living arrangements: with family Occupation/Education: student Gender identity (if verbalized by the patient): Female Spiritual care concerns: No Exam 2 Narrative: GENERAL: Nontoxic, no acute distress HEAD: Normocephalic, atraumatic. EYES: PERRLA and EOMI. ENT: Mucous membranes moist. NECK: Supple. CHEST: No respiratory distress. HEART: Regular rate and rhythm ABDOMEN: Soft, appropriately gravid, nontender EXTREMITIES: Normal range of motion SKIN: Warm, dry, no rash. NEURO: Alert and oriented x3. PSYCH: Normal mood and affect. Course Vital Signs Vital signs: Vital Signs Temperature 98.2 F 07/10/24 13:25 Pulse Rate 88 07/10/24 13:25 Respiratory Rate 20 07/10/24 13:25 Blood Pressure 93/58 L 07/10/24 13:25 Pulse Oximetry 100 07/10/24 13:25 Oxygen Delivery Room Air 07/10/24 13:25 Temperature 98.2 F 07/10/24 13:25 Pulse Rate 87 07/10/24 20:28 Respiratory Rate 18 07/10/24 20:28 Blood Pressure 136/82 07/10/24 20:28 Pulse Oximetry 97 07/10/24 20:28 Oxygen Delivery Room Air 07/10/24 13:25 MDM - Nausea/Vomiting/Diarrhea MDM Narrative Medical decision making narrative: 23-year-old female presenting with nausea and vomiting the setting of . Vitals are stable. Exam remarkable for the above. Blood work with a white count of 14.6. Potassium is 3.1. Suspect these are both related to her ongoing vomiting. Ob came down and performed a nonstress test and states that fetus looks healthy. She received Reglan and Benadryl with temporary improvement. She received another dose of Benadryl and Compazine with significant improvement in her symptoms and is asking to go home. She would like to eat something. Feel this is reasonable. Advised she follow-up closely with her OB. Discharged in stable condition. Differential Diagnosis Differential diagnosis: Likely food poisoning, gastroenteritis and dehydration Medical Records Attestation: I reviewed the patient's medical records. Lab Data Attestation: I reviewed the patient's lab results. 07/10/24 13:50 07/10/24 13:50 Labs: Lab Results 07/10/24 07/10/24 Range/Units 13:50 14:44 WBC 14.6 H (4.5-10.0) K/mm3 RBC 4.40 (4.2-5.4) M/mm3 Hgb 12.4 (12.0-15.0) g/dL Hct 36.4 L (37.0-47.0) % MCV 82.7 (80-100) fl MCH 28.2 (26-34) pg MCHC 34.1 (32-36) g/dl RDW 13.2 (11.5-14.5) % Plt Count 237 (150-375) k/mm3 MPV 10.8 H (7.4-10.4) fl Immature Gran % (Auto) 0.8 H (0-0.5) % Neut % (Auto) 88.4 H (45.5-73.1) % Lymph % (Auto) 6.8 L (18.3-44.2) % [place] % (Auto) 3.6 (2.6-8.5) % Eos % (Auto) 0.1 (0-4.4) % Baso % (Auto) 0.3 (0.2-1.2) % Lymph # (Auto) 1.00 (0.9-3.2) K/mm3 Weber # (Auto) 0.5 (0.1-0.6) K/mm3 Eos # (Auto) 0.0 (0-0.3) K/mm3 Baso # (Auto) 0.1 (0.0-0.1) K/mm3 Abs Immat Gran (auto) 0.11 H (0.00-0.031) K/mm3 Absolute Neuts (auto) 12.9 H (1.3-6.7) K/mm3 Absolute Nucleated RBC 0.000 (0.0-0.012) K/mm3 Nucleated RBC % 0.0 (0.0-0.2) % Sodium 134 L (137-145) mmol/L Potassium 3.1 L (3.4-5.0) mmol/L Chloride 104 (98-107) mmol/L Carbon Dioxide 24 (22-30) mmol/L Anion Gap 6 (4-12) mmol/L BUN 9 (7-17) mg/dL Creatinine 0.60 L (0.7-1.0) mg/dL Estim Creat Clear Calc 104 ml/min Estimated GFR > 60 (59 - ) Glucose 130 H (65-110) mg/dL Calcium 8.9 (8.4-10.2) mg/dL Total Bilirubin 1.1 (0.2-1.3) mg/dL AST 31 (14-36) U/L ALT 17 (6-35) U/L Alkaline Phosphatase 76 (38-126) U/L Total Protein 7.0 (6.3-8.2) g/dL Albumin 4.1 (3.5-5.1) g/dL Lipase 110 (23-300) U/L Urine Color Yellow (Yellow) Urine Appearance Clear (Clear) Urine pH 8.5 (5.0-9.0) Ur Specific [place] 1.021 (1.001-1.035) Urine Protein Trace (Negative) mg/dL Urine Glucose (UA) Trace H (Negative) mg/dL Urine Ketones 3+ H (Negative) mg/dL Ur Blood (Man) Negative (Negative) Urine Nitrate Negative (Negative) Urine Bilirubin Negative (Negative) Urine Urobilinogen 1.0 (<2.0) mg/dL Leukocyte Esterase Rfl Negative (Negative) ROSALIE/UL Urine RBC 0-2 (0-2) /hpf Urine WBC 6-10 H (0-3) /hpf Ur Squamous Epith Cells Occasional (Few) /hpf Urine Bacteria 1+ H /hpf Urine Casts 0-2 Urine Opiates Screen Negative (Negative) Urine Methadone Screen Negative (Negative) Ur Barbiturates Screen Negative (Negative) Ur Phencyclidine Scrn Negative (Negative) Ur Amphetamine Screen Negative (Negative) U Benzodiazepines Scrn Negative (Negative) Urine Cocaine Screen Negative (Negative) U Cannabinoids Screen Positive A (Negative) Critical Care Time Critical Care Time Critical Care Time: No Discharge Plan Discharge Clinical Impression: Nausea and vomiting in Patient Disposition: Home, Self-Care Condition: Stable Instructions: Antibiotic Form, Nausea and Vomiting in (ED) Additional Instructions: Please follow-up closely with your OBGYN. You may use the Zofran as needed for nausea. If your symptoms worsen or other concerning symptoms arise, please return to the ER. Patient Language: Upper Sorbian Prescriptions: New ondansetron 4 mg tablet,disintegrating 4 mg PO Q8H PRN (Reason: nausea and vomiting) Qty: 20 0RF No Action Se--19 29 mg iron- 1 mg tablet PO amoxicillin 875 mg tablet 875 mg PO Q12H Qty: 20 0RF cephalexin 500 mg capsule 500 mg PO Q6H 7 Days Qty: 28 0RF ondansetron 4 mg tablet,disintegrating 4 mg PO Q8H PRN (Reason: nausea and vomiting) Qty: 10 0RF Follow-up/Referrals: UNKNOWN,DOCTOR [Primary Care Provider] -
[2024-07-10 17:02] LABS: Amphetamine Screen Urine Negative (Negative); Barbiturate Screen Urine Negative (Negative); Benzodiazepines Screen Urine Negative (Negative); Cannabinoid Screen Urine Positive (Negative); Cocaine Screen Urine Negative (Negative); Methadone Screen Urine Negative (Negative); Opiate Screen Urine Negative (Negative); Phencyclidine Screen Urine Negative (Negative)
--- NOTE | 2024-07-10 17:04 | PC.NURSE ---
OB notified to do NST
[2024-07-10 17:15] VITALS: BP 93/54; PULSE 78; RESP 18; O2SAT 100
--- NOTE | 2024-07-10 17:15 | PC.NURSE ---
OB RN at bedside
[2024-07-10] MEDS: diphenhydrAMINE HCl INJ 50 MG/ML VIAL IV PUSH (17:30)
[2024-07-10 17:55] VITALS: BP 106/64; PULSE 76
--- NOTE | 2024-07-10 18:11 | PC.NURSE ---
Lety from reported baby looked good during monitoring and no contractions were noted
[2024-07-10 20:25] VITALS: RESP 18
[2024-07-10 20:28] VITALS: BP 136/82; PULSE 87; RESP 18; O2SAT 97
== END 2024-07-10 20:29 | disposition home or self-care (01) ==
PROVIDERS: Student in an Organized Health Care Education/Training Program; Emergency Provider Emergency Medicine
DX: O21.2 Late vomiting of pregnancy (principal); Z3A.26 26 weeks gestation of pregnancy; O99.332 Smoking (tobacco) complicating pregnancy, second trimester; F17.290 Nicotine dependence, other tobacco product, uncomplicated
CPT/HCPCS: 36415; 80053; 80307; 81001; 83690; 85025; 87086; 96361; 96374; 96375; 96376; 99284; J1200; J2765; J7030

== ENCOUNTER 2024-07-26 02:09 | Observation (INO) | payer OTHER, SELFPAY ==
[2024-07-26 02:32] VITALS: BP 100/68; PULSE 64
[2024-07-26 02:42] LABS: Add Urine Microscopic? YES; Appearance Urine Cloudy (Clear); Bacteria Urine 3+ /hpf; Bilirubin Urine Negative (Negative); Blood Urine Negative (Negative); Color Urine Yellow (Yellow); Glucose Urine UA Negative (Negative); Ketones Urine 2+ mg/dL (Negative); Leukocyte Esterase Ur Negative LEU/UL (Negative); Nitrate Urine Negative (Negative); Non Pathogenic Casts 0-2; Protein Urine Negative (Negative); RBC Urine 0-2 /hpf (0-2); Specific Grav Ur 1.017 (1.001-1.035); Squamous Epithelial Cell Urine Moderate /hpf (Few); Urobilinogen Urine 0.2 mg/dL (<2.0); pH Urine 7.5 (5.0-9.0)
[2024-07-26 02:46] VITALS: BP 111/63; PULSE 76
[2024-07-26] MEDS: diphenhydrAMINE HCl INJ 50 MG/ML VIAL 25 MG IV PUSH (03:02)
[2024-07-26] MEDS: ONDANSETRON INJ 4 MG/2 ML VIAL IV PUSH (03:02)
[2024-07-26] MEDS: DEXTROSE 5%/LACTATED RINGERS 1,000 ML 500 ML IV CONT (03:05)
[2024-07-26 03:17] VITALS: BMI 20.8
--- NOTE | 2024-07-26 03:17 | OBADM ---
This patient, Mae Frances, admitted to the OB room [facility] Post [facility] for observation. Patient/family oriented to hospital policies and general routines including ID bracelet, bed and alarms, visiting hours, pain management, procedures, bathroom and other care routines, personal items, smoking policy, room service/diet, and visiting hours. Patient/Family are encouraged to report perceived risks to care and to ask questions if they do not understand what they are told or what they should do.
[2024-07-26] MEDS: METOCLOPRAMIDE HCL INJ 10 MG/2 ML VIAL (04:40)
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
--- OUTSIDE RECORDS SUMMARY | 2024-08-02 02:36 | XMS_ITS | Encounter Summary ---
Author Organization [facility] Address [address] [place] [address] Care Team Providers Care Magnetic Resonance Imaging Director Name Role Phone Geo Goyal MD Primary Care Provider [phone] Reason for Visit * Reason Onset Date Comments Results 04/23/2016 Encounter Details Date Type Department Care Team (Late st Contact Info) Description 04/23/2016 Telephone [facility] Pediatric[facility] - [address] [address] Florencia Lopez MD [address] [place] [id number] Results Social History Tobacco Use Types Packs/Day Years Used Date Smoking Tobacco: Never Smokeless Tobacco: Never Alcohol Use Standard Drinks/Week Comments No 0 (1 standard drink = 0.6 oz pur e alcohol) Sex and Gender Information Value Date Recorded Sex Assigned at Not on file Gender Identity Not on file Sexual Orientation Not on file documented as of this encounter Miscellaneous Notes * Telephone Encounter - Chastity Herrera RN - 05/15/2016 8:[address] Lopez's message regarding mag citrate cleanout, encouraged mom to flavor it with crystal lite drink powder if needed. Asked mom to let us know how much stool pt passed so that we can settle on a maintenance plan. Mom reports that pt is home from school today so she will do cleanout today. * Telephone Encounter - Chastity Herrera RN - 05/14/2016 8:04 AM CDT LM on mom's unidentified VM to call us. * Telephone Encounter - Swapna Ibarra RN - 05/11/2016 3:35 PM CDT Left message for parents to call the office. * Telephone Encounter - Florencia Lopez MD - 05/11/2016 3:29 PM CDT She HAS to drink Mg Citrate or Miralax for the cleanout. We can give her 10 mg of Dulcolax, but alone it will not work well. MG Citrate cleanout has the smallest volume * Telephone Encounter - Swapna Ibarra RN - 05/11/2016 3:12 PM CDT Spoke to mother informing her of Dr. Lopez's message. Will need to do clean out, no BM's. Mother states Mae will NOT drink any liquid, can we prescribe all pills for a clean out? * Telephone Encounter - Florencia Lopez MD - 05/11/2016 3:04 PM CDT Is she impacted? Has she had any BMs at all this past week? If not, then options are either Miralax or Mg Citrate for clean out, and/or enemas and Dulcolax tablets. If she is not impacted, then we can use Lactulose and Dulcolax for maintenance, if she will not take the Miralax, however, she has to take something. * Telephone Encounter - Rosetta Montoya RN - 05/11/2016 2:34 PM CDT Gave mom Dr. Lopez's message. She voiced understanding. Mom wondered what the next steps are. Mae will not take her miralax or follow the diet. She is still constipated. She just [facility] a [facility] on [facility]. She was there for 6 days and they did not give her the Miralax. I asked mom if she would take the mag citrate for a clean out and mom said that she had to pay for that out of pocket since her insurance would not cover it. She would not do that. I will consult with Dr. Lopez. * Telephone Encounter - Florencia Lopez MD - 05/11/2016 2:31 PM CDT I got results from Mae's lumbar spine MRI done at [facility]. The MRI shows normal spine and nerves, only dilated colon, which we knew. * Telephone Encounter - Swapna Ibarra RN - 04/24/2016 3:29 PM CDT Spoke to mother informing her of results. She has gained 2 lbs. She verbalized understanding and will keep us updated. * Telephone Encounter - Chastity Herrera RN - 04/24/2016 12:29 PM CDT LM on mom's unidentified VM to call us. * Telephone Encounter - Florencia Lopez MD - 04/24/2016 12:21 PM CDT The spine MRI did not reveal any nerve abnormalities. There was evidence of mild scoliosis which they should discuss with the PCP and also evidence of dilated colon. The labs: basic metabolid profile only and celiac (TTG), were normal. * Telephone Encounter - Lisa Chavez - 04/23/2016 3:57 PM CDT Received MRI lumber spine from [place]. In Dr. Lopez's mailbox. * Telephone Encounter - Lexi Cloud - 04/23/2016 8:28 AM CDT Received lab results from [facility], collection date 04/17/2016, placed in 's mailbox. documented in this encounter Plan of Treatment Not on file documented as of this encounter Visit Diagnoses Not on filedocumented in this encounter Care Teams Magnetic Resonance Imaging Director Relationship Specialty Start Date End Date Geo Goyal MD [address] [place] [address] PCP - General 08/24/09 01/15/22 documented as of this encounter
--- OUTSIDE RECORDS SUMMARY | 2024-08-02 02:36 | XMS_ITS | Encounter Summary ---
Author Organization [facility] Address [address] [place] [address] Care Team Providers Care Data Entry Analyst Name Role Phone Geo Goyal MD Primary Care Provider [phone] Reason for Visit * Reason Comments Constipation Encounter Details Date Type Department Care Team (Latest Contact Info) Description 05/06/2012 3:15 PM CDT - 05/06/2012 11:59 PM CDT Hospital Encounter [facility] - [address] [place] [address] Barry Kendall MD [address] [place] [id number] Discharge Disposition: Home or Self Care Social [...] Sign Reading Time Taken Comments Blood Pressure 108/56 05/06/2012 3:22 PM CDT Pulse - - Temperature - - Respiratory Rate - - Oxygen Saturation - - Inhaled Oxygen Concentration - - Weight 28.5 kg (62 lb 14.4 oz) 05/06/2012 3:22 P M CDT Height 132.5 cm (4' 4.17 ) 05/06/2012 3:22 PM CD T Body Mass Index 16.25 05/06/2012 3:22 PM CDT Body Mass Index Percentile 43.40% 05/06/2012 3:2 2 PM CDT Growth Chart: [facility] (Girls, 2- 20 Years) documented in this encounter Discharge Instructions * Patient Instructions* Barry Kendall MD - 05/06/2012 3:41 PM CDT Miralax take 1 capful daily Return in 3 months documented in this encounter Medications at Time of Discharge Medication Sig Dispensed Refills Start Date End Date cloNIDine (CATAPRES) 0.3 MG tablet Take 1 Tab by mouth at bedtime. 30 Tab 0 02/01/2012 08/19/2012 gabapentin (NEURONTIN) 100 MG capsule Take 100 mg by mouth 3 times daily. 04/13/2016 polyethylene glycol 3350 (MIRALAX) powder Take 17 g by mouth 2 times daily. Take an extra capful if no stool within the past 36 hours. 850 g 2 02/01/2012 10/07/2012 QUEtiapine (SEROQUEL) 100 MG tablet Take 1 Tab by mouth 2 times daily. 60 Tab 0 02/01/2012 08/19/2012 QUEtiapine (SEROQUEL) 200 MG tablet Take 1 Tab by mouth every morning. 30 Tab 0 02/01/2012 08/19/2012 sertraline (ZOLOFT) 100 MG tablet Take 1 Tab by mouth 2 times daily. 60 Tab 0 02/01/2012 01/16/2023 traZODone (DESYREL) 100 MG tablet Take 100 mg by mouth at bedtime. 08/19/2012 documented as of this encounter Progress Notes * Barry Kendall MD - 05/06/2012 8:36 PM CDT [address] [address] PEDIATRIC GASTROENTEROLOGY NAME: RENATO GONZALEZ : 2000 UNIT #: [id number] [facility] #: [id number] DATE SEEN: 05/06/[address] Goyal: I saw Renato in the Gastroenterology Clinic today here at [facility]. She was admitted twice this summer to [facility] because of constipation and this continues to be a problem. Her mother feels that it is most likely due to the fact that she is refusing to take her medication. She is seen by a therapist, Nilsa Roman, and will be seeing her again next week. PHYSICAL EXAM: On exam today, her weight is 28.5 kg, blood pressure 108/56. She appears comfortable and well-nourished. She is difficult to examine at times because of cooperation, but overall does reasonably well. Her mouth and throat are clear. The chest is clear throughout. The cardiac exam reveals a normal S1 and S2 without a murmur. The abdomen is soft. There is no tenderness and no organomegaly noted. Renato has clearly problems with chronic constipation and she would probably do fine if she simply took her medication. I have asked that the therapist call my office so we can discuss possible interventions to encourage compliance. RECOMMENDATION: 1. Continue MiraLAX. 2. I will be contacting the therapist. 3. Return in 4 months. Thank you very much for letting us see her with you. Sincerely, Dictated By: BARRY KEDNALL MD F/Tim JOB ID: [id number] cc: Geo Goyal M.D. PEDIATRIC GASTROENTEROLOGY documented in this encounter Miscellaneous Notes * Miscellaneous Scans - Document, Scanned - 05/20/2012 7:47 PM CDT documented in this encounter Plan of Treatment Not on file documented as of this encounter Visit Diagnoses Not on filedocumented in this encounter Care Teams Data Entry Analyst Relationship Specialty Start Date End Date Geo Goyal MD [address] [place] [id number] PCP - General 08/24/09 01/15/22 documented as of this encounter
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
--- OUTSIDE RECORDS SUMMARY | 2024-08-02 02:36 | XMS_ITS | Encounter Summary ---
Author Organization [facility] Address [address] [place] [address] Care Team Providers Care Truck Sales Representative Name Role Phone Geo Goyal MD Primary Care Provider [phone] Reason for Visit * Reason Onset Date Comments Consultation 05/30/2012 Encounter Details Date Type Department Care Team (Late st Contact Info) Description 05/30/2012 Telephone [facility] - [facility] [place] [address] Barry Hernandez MD [facility] [place] [address] Consultation Social History Tobacco Use Types Packs/Day Years [...] Telephone Encounter - Chastity Herrera RN - 06/03/2012 8:40 AM CDT Reached mom, she reports that pt is impacted again, a little bit . Pt was hospitalized at [facility] & did have some BMs there, but has regressed again @ home & mom is having trouble getting her to sit on the toilet. Her therapist Nilsa Roman can be contacted @ [phone]. Will let Dr. Hernandez know. * Telephone Encounter - Chastity Herrera RN - 06/02/2012 11:19 AM CDT LM on mom's unidentified VM to call us with update. * Telephone Encounter - Barry Hernandez MD - 05/30/2012 12:19 PM CDT Please check progress, and if having problems find out how to contact her therapist Nilsa Roman, thx documented in this encounter Plan of Treatment Not on file documented as of this encounter Visit Diagnoses Not on filedocumented in this encounter Care Teams Truck Sales Representative Relationship Specialty Start Date End Date Geo Goyal MD [address] [place] [id number] PCP - General 08/24/09 01/15/22 documented as of this encounter
--- OUTSIDE RECORDS SUMMARY | 2024-08-02 02:36 | XMS_ITS | Encounter Summary ---
Author Organization [facility] Address [address] [place] [address] Care Team Providers Care Business Development Director Name Role Phone Geo Goyal MD Primary Care Provider [phone] Reason for Visit * Reason Onset Date Comments Update 03/13/2012 Encounter Details Date Type Department Care Team (Late st Contact Info) Description 03/13/[address] 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 It's behavior related. She is taking miralax daily, eating a high fiber diet, and drinking plenty of water. Per Dr. Hernandez's last note, plan is for enema if no results. Mother okay with this. Mother states Mae has to go, but refuses to sit on the toilet . Instructed mother to take away all toys, games, tv until she goes. Reviewed that 'mom is the mom' and 'mom is the boss', it is her job to make sure Mae is following the plan. Plan to see psychologist tomorrow. Mother will keep us updated. * Telephone Encounter - Mikaela Zee - 03/13/2012 2:57 PM CDT Patient is still taking the miralax but refusing to go to the bathroom. Mom is not sure what to do? documented in this encounter Plan of Treatment Not on file documented as of this encounter Visit Diagnoses Not on filedocumented in this encounter Care Teams Business Development Director Relationship Specialty Start Date End Date Geo Goyal MD [address] [place] [address] PCP - General 08/24/09 01/15/22 documented as of this encounter
--- OUTSIDE RECORDS SUMMARY | 2024-08-02 02:36 | XMS_ITS | Encounter Summary ---
Author Organization [facility] Address [address] [place] [address] Care Team Providers Care Medical Orderly Name Role Phone Geo Goyal MD Primary Care Provider [phone] Reason for Visit * Reason Comments Stooling Issues Encounter Details Date Type Department Care Team (Latest Contact Info) Description 04/13/2016 10:00 AM CDT - 04/13/2016 11:59 PM CDT Hospital Encounter [facility] - [address] [address] Florencia Lopez MD [address] [place] [id number] Discharge Disposition: Home or Self Care Social [...] Sign Reading Time Taken Comments Blood Pressure - - Pulse - - Temperature - - Respiratory Rate - - Oxygen Saturation - - Inhaled Oxygen Concentration - - Weight 32.3 kg (71 lb 3.3 oz) 6 10:26 AM CDT Height 151.4 cm (4' 11.6 ) 04/13/2016 1 0:26 AM CDT Body Mass Index 14.09 04/13/2016 10:26 AM CDT Body Mass Index Percentile 0.33% 04/13 10:26 AM CDT Growth Chart: [facility] (Girls, 2- 20 Years) documented in this encounter Discharge Instructions * Patient Instructions* Florencia Lopez MD - 04/13/2016 12:11 PM CDT Dietary Instructions: 1. Start taking [place] instant breakfast mixed with whole milk and give 2 times per day 2. Have 3 meals per day that should at least be 1 full plate of food- add extra butter, oil or other fats to foods. 3. Start a multivitamin with iron- a children's chewable would be fine (no gummies) 4. Drink at least 8 cups of water per day. Constipation management Day 1. Take 130 mL of Mg citrate within 20 minutes. Drink at least 250 mL (8 oz) of liquid over thenest 6 hours. Give a normal saline enema Day 2. And day 3. : Repeat above. Stool must be clear liquid After that, start: 1 capful of Miralax in at least 6 oz of any liquid 3 times per day. 1 tab of Senokot daily Sit on toilet after ever meal at home for 5 minutes. Sit on toilet every 2 hours (for 5 minutes) at school. WE NEED TO SEE HER IN 2 WEEKS FOR WEIGHT CHECK. Labs as outpatient. Schedule MRI of the lumbar spine. Give the school letter and insist on a 504 educational plan based on this and her nutrition needs. If you have questions or concerns, our phone is: [phone] documented in this encounter Medications at Time of Discharge Medication Sig Dispensed Refills Start Date End Date asenapine (SAPHRIS) 10 MG tablet Dissolve 10 mg under the tongue at bedtime. 9 asenapine (SAPHRIS) 5 MG tablet Dissolve 5 mg under the tongue daily with breakfast. 09/17/2018 cloNIDine (CATAPRES) 0.1 MG tablet 0 03/18/2016 09/17/2018 FOCALIN XR 10 MG capsule TK ONE C PO Q AFTERNOON 0 03/17/2016 09/17/2018 FOCALIN XR 25 MG capsule TK ONE C PO QAM 0 03/17/2016 09/17/2018 polyethylene glycol 3350 (MIRALAX) powder Take 17 g by mouth 3 times daily 850 g 11 04/13/2016 09/17/2018 polyethylene glycol 3350 (MIRALAX) powder Take 17 g by mouth 3 times daily 850 g 5 04/13/2016 05/26/2019 Sennosides (SENNA) 15 MG Take 15 mg by mouth once daily 30 Tab 4 04/13/2016 09/17/2018 sertraline (ZOLOFT) 100 MG tablet Take 1 Tab by mouth 2 times daily. 60 Tab 0 02/01/2012 01/16/2023 ziprasidone (GEODON) 20 MG capsule TK ONE C PO QD 0 01/17/2016 09/17/2018 ziprasidone (GEODON) 40 MG capsule TK 1 C PO QD WF 0 03/16/2016 09/17/2018 documented as of this encounter Progress Notes * Florencia Lopez MD - 04/13/2016 4:[address] Geo Goyal MD, I had the pleasure of seeing Mae Frances for a consultation at our outpatient clinic today,at your request. Mae Frances was seen in the Pediatric GI clinic along with her mother. Mae is a 15 y.o. female who presents with a chief complaint of constipation. HISTORY OF THE PRESENT ILLNESS: Mae Frances presents after several years when she was seen in the GI clinic, with similar symptoms. Specifically, she has constipation. She is a poor historian, but it is clear that she has very infrequent BMs. She has leaking of stool and cannot go to school because of that. Her mother is very concerned with this and wants this fixed. Mae used to be on Miralax in the past, but she is not on anything any longer. It is hard to get Mae to get the constipation medication and hard to have her sit on the toilet. She has emotional and behavioral problems (see below problem list) and this affects her compliance to medication regimens. Another concern is that of low weight gain. Mae had been on the 17% for weight for age in 2012, but now she is falling below the charts. She appears very malnourished. She has not had her menses yet. Her BMI is very low. Mom says she eats well, but upon questioning, her diet is limited and does not seem to fulfill her needs. Her PCP has placed her on Periactin as appetite stimulant. Mae's mom appears angry and frustrated at times and it was observed that Mae was apprehensive during those times. REVIEW OF SYSTEMS Hair, ears, nose, throat, eyes: negative Lymphatic system: negative Cardiovascular system: negative Respiratory system: negative Gastrointestinal system: See above history of the present illness Musculoskeletal: Negative Genitals: Negative Urinary system/kidneys: Negative Skin: Negative Neurologic: Negative PAST MEDICAL HISTORY: Mae's past medical history includes: Past Medical History Diagnosis Date ??? Headache started approximately 2 years ago ??? S/P colonoscopy age 6y/o ??? ADHD (attention deficit hyperactivity disorder) ??? Sensory integration disorder ??? Bipolar affective ??? ODD (oppositional defiant disorder) ??? Aggression ??? Learning disability ??? Constipation, chronic Mae's past surgical history includes: Past Surgical History Procedure Laterality Date ??? Tonsillectomy 2009 ??? Biopsy 01/31/2012 N/A; BIOPSY RECTAL No history on file. FAMILY HISTORY: Family History Problem Relation Age of Onset ??? Migraine Mother ??? ADHD Maternal Uncle Also patient's cousin ??? Bipolar Disorder Maternal Uncle Also patient's cousin ??? OTHER Cousin with chronic constipation SOCIAL HISTORY: History Social History Narrative Updated 01/22/12. Lives with mother, step father, and younger sister, 3yo, healthy CURRENT MEDICATIONS: Current Outpatient Prescriptions Medication Sig Dispense Refill ??? cloNIDine (CATAPRES) 0.1 MG tablet 0 ??? polyethylene glycol 3350 (MIRALAX) powder Take 17 g by mouth 3 times daily 850 g 11 ??? magnesium citrate ([employer]S MAGNESIUM CITRATE) 1.745 GM/30ML Take 130 mL by mouth once for 1 dose 296 mL 3 ??? polyethylene glycol 3350 (MIRALAX) powder Take 17 g by mouth 3 times daily 850 g 5 ??? Sennosides (SENNA) 15 MG Take 15 mg by mouth once daily 30 Tab 4 ??? sertraline (ZOLOFT) 100 MG tablet Take 1 Tab by mouth 2 times daily. 60 Tab 0 ??? FOCALIN XR 10 MG capsule TK ONE C PO Q AFTERNOON 0 ??? FOCALIN XR 25 MG capsule TK ONE C PO QAM 0 ??? ziprasidone (GEODON) 20 MG capsule TK ONE C PO QD 0 ??? ziprasidone (GEODON) 40 MG capsule TK 1 C PO QD WF 0 ??? asenapine (SAPHRIS) 5 MG tablet Dissolve 5 mg under the tongue daily with breakfast. ??? asenapine (SAPHRIS) 10 MG tablet Dissolve 10 mg under the tongue at bedtime. No current facility-administered medications for this encounter. Facility-Administered Medications Ordered in Other Encounters Medication Dose Route Frequency Provider Last Rate Last Dose ??? piperacillin-tazobactam (ZOSYN) 60 mg/ml pediatric IV PRN Kenisha Delgado MD 1,270 mg at 01/31/12 1232 ALLERGIES Allergies Allergen Reactions ??? Tegretol [Carbamazepine] Rash ??? Stimulant Laxative [Bisacodyl] Rash PHYSICAL EXAM: Wt 32.3 kg (71 lb 3.3 oz) BMI 14.09 kg/m2 General: Very thin. HEENT: ears normal, sclera non-icteric, conjunctivae clear, oropharynx within normal limits, teeth normal, nares patent. Lungs: clear to auscultation bilaterally. Heart: Normal S1 and S2, no murmurs, normal rate and rhythm. Abdomen: Tense, distended, big mass in mid abdomen, c/w stool Perianal observation: normal findings, no fissures or tags, normal anal position Rectal:very dilated vault, full of hard stool. External genitalia: Normal Musculoskeletal system: muscle wasting. Neurologic: Normal deep tendon reflexes throughout, normal muscle tone and strength, normal cranialnerves. Full sensation. Skin: no rashes or lesions, warm and well perfused. Lymphatic: no palpable nodes. ASSESSMENT/DECISION MAKIN) Constipation 3) encopresis. 2) Failure to thrive Constipation was worked up in the past with Ba enema and even rectal suction bx which was normal. Additional work up today as below. She needs an aggressive clean out and maintenance regimen as below. Sitting regimen as well. We gave letter for school. I explained pathophysiology of constipation and encopresis at length. Regarding the FTT, inadequate caloric intake is the most common cause. We consulted the environmental coordinator. We are willing to undertake a trial of increased nutrition at home, however, if she does not increase her weight in two weeks, we recommend elective admission to address malnutrition, constipation and social concerns. PLAN: Patient Instructions Dietary Instructions: 1. Start taking [place] instant breakfast mixed with whole milk and give 2 times per day 2. Have 3 meals per day that should at least be 1 full plate of food- add extra butter, oil or other fats to foods. 3. Start a multivitamin with iron- a children's chewable would be fine (no gummies) 4. Drink at least 8 cups of water per day. Constipation management Day 1. Take 130 mL of Mg citrate within 20 minutes. Drink at least 250 mL (8 oz) of liquid over thenest 6 hours. Give a normal saline enema Day 2. And day 3. : Repeat above. Stool must be clear liquid After that, start: 1 capful of Miralax in at least 6 oz of any liquid 3 times per day. 1 tab of Senokot daily Sit on toilet after ever meal at home for 5 minutes. Sit on toilet every 2 hours (for 5 minutes) at school. WE NEED TO SEE HER IN 2 WEEKS FOR WEIGHT CHECK. Labs as outpatient. Schedule MRI of the lumbar spine. Give the school letter and insist on a 504 educational plan based on this and her nutrition needs. If you have questions or concerns, our phone is: [phone] Orders Placed This Encounter ??? MRI LUMBAR SPINE WO CONTRAST Standing Status: Future Number of Occurrences: Standing Expiration Date: 04/13/2017 Order Specific Question: Exam to be performed? Answer: Per Radiologist protocol ??? CBC W AUTO DIFFERENTIAL ??? COMPREHENSIVE METABOLIC PANEL ??? ENDOMYSIAL ANTIBODY IGA ??? IGA BLOOD ??? TISSUE TRANSGLUTAMINASE AB IGA ??? T4 FREE ??? TSH ??? PHOSPHORUS BLOOD Standing Status: Future Number of Occurrences: Standing Expiration Date: 04/08/2017 ??? MAGNESIUM BLOOD Standing Status: Future Number of Occurrences: Standing Expiration Date: 04/08/2017 ??? VITAMIN D 25-HYDROXY ??? DISCONTD: magnesium Hydroxide (MILK OF MAGNESIA) 800 MG/5ML suspension Sig: Take 130 mL by mouth as needed Dispense: 237 mL Refill: 2 Take the above amount for three consecutive days. Follow directions at the after visit summary ??? polyethylene glycol 3350 (MIRALAX) powder Sig: Take 17 g by mouth 3 times daily Dispense: 850 g Refill: 11 ??? magnesium citrate (CVS MAGNESIUM CITRATE) 1.745 GM/30ML Sig: Take 130 mL by mouth once for 1 dose Dispense: 296 mL Refill: 3 Take above amount for 3 consecutive days ??? polyethylene glycol 3350 (MIRALAX) powder Sig: Take 17 g by mouth 3 times daily Dispense: 850 g Refill: 5 ??? Sennosides (SENNA) 15 MG Sig: Take 15 mg by mouth once daily Dispense: 30 Tab Refill: 4 Plan of care, including education on the safe and effective use of medications was discussed with the family who verbalized understanding and agreed with the treatment options discussed. It was a pleasure to contribute to the care of your patient. Please, do not hesitate to contact me with any questions of concerns. Sincerely, Florencia Lopez MD, MPH Office: [phone] 04/13/2016 4:39 PM Cc: Geo Goyal MD [address] [place] [address] [address] [facility] [id number] * Dixon Robreson, AGUSTIN/LD - 04/13/2016 11:56 AM CDT Initial Nutrition Assessment Mae Ramos a 15 y.o. 6 m.o. female seen regarding poor weight gain. Past Medical History Diagnosis Date ??? Headache started approximately 2 years ago ??? S/P colonoscopy age 6y/o ??? ADHD (attention deficit hyperactivity disorder) ??? Sensory integration disorder ??? Bipolar affective ??? ODD (oppositional defiant disorder) ??? Aggression ??? Learning disability ??? Constipation, chronic Assessment: Mae is known through initial encounter in 2010 where she was seen for poor weight gain and chronic constipation Mae is diagnosed with Bipolar, ADHD, ODD, and a learning disorder. She also suffers from chronic constipation which she has been instructed to take miralax for relief but has ongoing poor compliance with this medicine and other bowel regimens resulting in chronic constipation. Food/nutrition related history: Mae appears to be very thin and malnourished. Per growth chart review her weight has fallen off the growth chart from a previously followed ~10thtile growth pattern. Mae denies that her appetite is affected by her chronic constipation. Mom states Mae eats but only foods that she likes. She has a long history of picky eating with an affinity for fast foods and convenience items. Mom has tried pediasure and ensure supplements in the past but they were not well received by Mae. A high fiber diet is not followed at home to help with this because Mae reportedly does not like many fruits, vegetables, or whole wheat products. Fiber supplements have been tried in the [facility] but reportedly did not help. Mae's mother appeared very frustrated at today's appointment. Mom reports that she works evenings so she is not in charge of what Mae eats during these times. Maternal grandmother is in charge of her during these times. It does not appear that Mae is actively trying to restrict her food intake. It appears that a combination of social, psychological (also medication related) and physiological issues are contributing to Mae's poor nutrition. Asked Mae a few questions regarding food. She stated that her favorite foods are chicken nuggets and chips. She says she likes food and likes to eat. She verbalized that food helps her gain weight and she needs it to grow. She was very irritable during the session because she did not want to be admitted to the hospital. 24 Hour recall 8 am - tea to drink Urgent care 11:00-12:00- Home - taco with 10 in tortilla with beef cheese tomato and lettuce- ate all but 3 bites Snacks: ice cream, popsicle, and fruit Dinner: coleslaw Snack: nothing after dinner *Mae likes [place] instant breakfast supplement Psychiatrist- [facility]- Dr. Cristobal Motta - [address] [place] [address] Anthropometrics: Weight: 32.3 kg (71 lb 3.3 oz) 1%ile (Z=-2.48) based on CDC 2-20 Years [id number] data using vitals from 04/13/2016. Height: 151.4 cm (4' 11.6 ) 12%ile (Z=-1.16) based on CDC 2-20 Years [id number] data using vitals from 04/13/2016. Body mass index is 14.09 kg/(m^2). 0%ile (Z=-2.72) based on [facility] 2-20 Years BMI-for-age data using vitals from 04/13/2016. *Mae has not starter her period yet. IBW: 43.55 kg Mae is currently 74% of her ideal body weight. Labs/Tests/Procedures No recent labs Medications: Current Outpatient Prescriptions Medication ??? cloNIDine (CATAPRES) 0.1 MG tablet ??? polyethylene glycol 3350 (MIRALAX) powder ??? polyethylene glycol 3350 (MIRALAX) powder ??? Sennosides (SENNA) 15 MG ??? sertraline (ZOLOFT) 100 MG tablet ??? FOCALIN XR 10 MG capsule ??? FOCALIN XR 25 MG capsule ??? ziprasidone (GEODON) 20 MG capsule ??? ziprasidone (GEODON) 40 MG capsule ??? asenapine (SAPHRIS) 5 MG tablet ??? asenapine (SAPHRIS) 10 MG tablet No current facility-administered medications for this encounter. Facility-Administered Medications Ordered in Other Encounters Medication ??? piperacillin-tazobactam (ZOSYN) 60 mg/ml pediatric IV Estimated Needs: KCAL: [id number] kcal/day Protein (g): 1.1 g pro/kg Nutrition Care Process Nutrition Diagnostic Statement: (NC-3.1) Underweight related to behavioral issues and decreasd appetite related to possible medication interactions as evidenced by BMI-for-age <3rd percentile Nutrition Interventions: Meals and snacks: Mom was instructed to provide set meal and snack times (3 meals and 1 afternoon snack, and 1 evening snack). Also encouraged her to provide whole milk and a nutrition supplement 1-2times per day. Mom is to keep a 3 day food record and bring back to clinic for weight check. Coordination of Care: RAMONITA was filled out for pt psychiatrist office to obtain weight history. Awaiting those documents. Discussed pt with Dr. Lopez. I do not feel as though Mae has an eating disorder but she obviously has multiple factors affecting her food intake. Her weight gain should be closely monitored to prevent stunting her growth and maturation. Initial/Brief Nutrition Education: Discussed ways to increase calories by adding fats to appropriate foods and switching to whole milk. I reviewed the importance of increasing frequency and volume offood consumed at this time to promote weight gain. Nutrition Goal #1: Total intake will meet estimated nutrient needs. Nutrition Goal #2: Weight will increase by 1-2 lbs per week. 45 minutes was spent with this family in clinic. Will follow-up at weight check in 2-[address]/MANUELA Ascom: [id number] documented in this encounter Plan of Treatment Scheduled Orders Name Type Priority Associated Diagnoses Orde r Schedule CBC W AUTO DIFFERENTIAL Lab Routine Fecal impaction Ordered: 04/13/2016 COMPREHENSIVE METABOLIC PANEL Lab Routine Fecal impaction Ordered: 04/13/2016 ENDOMYSIAL ANTIBODY IGA Lab Routine Fecal impaction Ordered: 04/13/2016 IGA BLOOD Lab Routine Fecal impaction Ordered: 04/13/2016 TISSUE TRANSGLUTAMINASE AB IGA Lab Routine Fecal impaction Ordered: 04/13/2016 T4 FREE Lab Routine Fecal impaction Ordered: 04/13/2016 TSH Lab Routine Fecal impaction Ordered: 04/13/2016 VITAMIN D 25-HYDROXY Lab Routine Poor weight gain in child Ordered: 04/13/2016 documented as of this encounter Procedures Procedure Name Priority Date/Time Associated Diagnosis Comments IMAGING/RADIOLOGY/X RAY RESULTS ORDER 04/27/2016 10:46 PM CDT LAB RESULTS ORDER 04/27/2016 10: 46 PM CDT documented in this encounter Results * IMAGING/RADIOLOGY/XRAY RESULTS ORDER (04/27/2016 10:46 PM CDT) Anatomical Region Laterality Modality Other Narrative 04/27/2016 10:46 PM CDT Ordered by an unspecified provider. Scanned Document IMAGING * LAB RESULTS ORDER (04/27/2016 10:46 PM CDT) Narrative 04/27/2016 10:46 PM CDT Ordered by an unspecified provider. Scanned Document LAB - THERAPEUTIC DR ELMORE MONITORING ORDERABLES documented in this encounter Visit Diagnoses Diagnosis Fecal impaction (HCC)- Primary Poor weight gain in child Failure to thrive documented in this encounter Care Teams Medical Orderly Relationship Specialty Start Date End Date Geo Goyal MD [address] [place] [id number] PCP - General 08/24/09 01/15/22 documented as of this encounter
--- OUTSIDE RECORDS SUMMARY | 2024-08-02 02:36 | XMS_ITS | Encounter Summary ---
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 Oral, TID ?? gabapentin (NEURONTIN) capsule 100 mg, Oral, TID ?? polyethylene glycol 3350 (MIRALAX) powder 17 g, Oral, BID ?? QUEtiapine (SEROquel) tablet 100 mg, Oral, BID ?? QUEtiapine (SEROquel) tablet 200 mg, Oral, QAM ?? sertraline (ZOLOFT) tablet 100 mg, Oral, BID ?? CONTINUOUS MEDICATIONS: ?? dextrose 5 % and 0.9% nacl infusion, Intravenous, Continuous ?? polyethylene glycol (GoLYTELY;NuLYTELY) 240 G solution 4,000 mL, Per NG tube, Continuous ?? PRN MEDICATIONS: ?? ondansetron (ZOFRAN) injection 2 mg, Intravenous, q8h PRN Problems List 1. Constipation - - Assessment - Mae is a 11yo that has a history of chronic episodes of constipation possibly due to her increased Psychiatric Medications. On exam, abdomen was distended in all quadrants. Ab-X-ray consistent with physical exam findings. - Plan - - NG tube placement for Golytely - NPO except clear liquids - Monitor Stools Closely 2. Behavior disorder - Assessment - mae has been diagnosed with Bipolar 1 disorder, ADHD, and ODD. During the examshe clearly still has issues with relation to those diagnoses. On previous notes, she has a historyof aggression at school and also there is mention of possible admission to for further care. - Plan - - Continue with Home Psych Meds - Discontinue Focalin as per Psychiatrist - Discuss RJ history and progress - F/U and Update Psychiatrist Paula Antonio Medical Student I have read the medical student above. Please see my H&P dated 03/24/12. Marlen Cooper MD Staff documented in this encounter Consult Notes * Tory Pineda LCSW - 03/25/2012 11:06 AM CDTAssociated Order(s): IP CONSULT TO CASE MANAGEMENT Case reopening: ship worker responding to case management consult today on pt, well known to this worker for multiple hospitalizations for constipation. When pt was discharged last month, February/2012, KODAK Stock RN was following up with mother as pt awaiting [facility] placement to establish a bowel regimen. Since there was no bed availability, pt has still not been there. The present plan is as follows: Worker contacted Jade Equipment Analyst at [facility] ([phone]) and spoke with her about mother touring and talking with psychiatrist and news director for a thorough understanding of the whole process that will occur when pt is in placement at [facility] Mother states that she is available the afternoons of Saturday, Saturday and Saturday. Jade at [facility] has mother's cell phone # and will call to set up a day and time for the meeting KODAK Barnhart RN aware of above and will continue to work with pt and family during this hospitalization-this worker will be out of the hospital until the day after . For further social service assistance, call [phone] or the social work pager, [phone]. Have discussed the above plan with the 3 So RN, Madonna, and left a gas card to help mother with trips here and to [facility]. Mother requested assistance. Plan and Discharge Plan Awaiting mother to tour [facility] and [facility] placement for pt. Case remains open for further intervention as needed Tory Pineda LCSW [phone] documented in this encounter ED Notes * Elvi Xiong NP - 03/24/2012 12:48 PM CDT Images from the original note were not included. EMERGENCY DEPARTMENT 03/24/[address] Geo Goyal We had the pleasure of caring for your patient, Mae Frances in our emergency department on 03/24/2012. A note from the provider(s) who cared for your patient is attached. Should you wish to access any laboratory results, please call . Should you wish to access any radiology results, please call , option 3. In addition, you can access patient information 24 hours a day, from any computer, through [employer], the online version of our electronic medical record. If you would like to use this service, please call Jadyn Zazueta, Connectivity Coordinator, at . We appreciate the opportunity to care for your patients. If you would like additional information, please call the emergency department directly at . Sincerely, Elvi Xiong NP Division of Emergency Medicine [facility], [place] [facility] [place] I DESIGNATED EMERGENCY DEPARTMENT Provider contact with the patient: 03/24/2012 12:48 Mae Frances [id number] [facility] EMERGENCY DEPT History Chief Complaint Patient presents with ??? Constipation Mother states last bowel movement 2 weeks ago.Mother states no good results after enema couple daysago. HPI Comments: Patient has a long psychiatric history, please see medication sheet, patient also hasmultiple behavioral issues (please see PMH), as well as social/home life issues. Patient has a longhistory of stool with holding (please see GI notes) and has been admitted for this in the past. Constipation The history is provided by the parent. This is a recurrent problem. Episode onset: x2 weeks ago. The patient is experiencing no pain. Stool description: streaking in under wear. There has been bloating. There has been no abdominal pain, no flatus, no dysuria, no loss of appetite, no fever, no vomiting, no nausea and no difficulty urinating.There is fiber in the patient's diet. She does not exercise regularly. There has not been adequate water intake. Treatments tried: many different treatments in the past as this is an ongoing problem. behavioral problemsPast medical history comments: please see PMH . Past Medical History Diagnosis Date ??? Headache started approximately 2 years ago ??? S/P colonoscopy age 6y/o ??? ADHD (attention deficit hyperactivity disorder) ??? Sensory integration disorder ??? Bipolar affective ??? ODD (oppositional defiant disorder) ??? Aggression ??? Learning disability ??? Constipation, chronic Past Surgical History Procedure Date ??? Tonsillectomy 2009 ??? Biopsy 01/31/2012 N/A; BIOPSY RECTAL History Social History ??? Marital Status: Single Spouse Name: N/A Number of Children: N/A ??? Years of Education: N/A Occupational History ??? Not on file. Social History Main Topics ??? Smoking status: Passive Smoker ??? Smokeless tobacco: Not on file ??? Alcohol Use: No ??? Drug Use: No ??? Sexually Active: Other Topics Concern ??? Not on file Social History Narrative Updated 01/22/12. Lives with mother, step father, and younger sister, 3yo, healthy Medications Current Outpatient Prescriptions Medication Sig Dispense Refill ??? gabapentin (NEURONTIN) 100 MG capsule Take 100 mg by mouth 3 times daily. ??? sertraline (ZOLOFT) 100 MG tablet Take 1 Tab by mouth 2 times daily. 60 Tab 0 ??? cloNIDine (CATAPRES) 0.3 MG tablet Take 1 Tab by mouth at bedtime. 30 Tab 0 ??? QUEtiapine (SEROQUEL) 100 MG tablet Take 1 Tab by mouth 2 times daily. 60 Tab 0 ??? polyethylene glycol 3350 (MIRALAX) powder Take 17 g by mouth 2 times daily. Take an extra capful if no stool within the past 36 hours. 850 g 2 ??? dexmethylphenidate (FOCALIN) 10 MG tablet Take 10 mg by mouth 3 times daily. ??? QUEtiapine (SEROQUEL) 200 MG tablet Take 1 Tab by mouth every morning. 30 Tab 0 Review of Systems Review of Systems Gastrointestinal: Positive for constipation. Negative for abdominal pain and flatus. Genitourinary: Negative for dysuria. BP 105/72 Temp 97.8 ??F Resp 20 Wt 26.4 kg (58 lb 3.2 oz) Physical Exam Physical Exam Nursing note and vitals reviewed. Constitutional: She appears well-developed and well-nourished. She is active. No distress. Defiant behavior, verbally aggressive at times HENT: Right Ear: Tympanic membrane normal. Left Ear: Tympanic membrane normal. Nose: Nose normal. No nasal discharge. Mouth/Throat: Mucous membranes are moist. Dentition is normal. No tonsillar exudate. Oropharynx is clear. Pharynx is normal. Eyes: Conjunctivae are normal. Pupils are equal, round, and reactive to light. Right eye exhibits no discharge. Left eye exhibits no discharge. Neck: Normal range of motion. Neck supple. No rigidity or adenopathy. Cardiovascular: Normal rate and regular rhythm. Pulses are palpable. No murmur heard. Pulmonary/Chest: Effort normal and breath sounds normal. There is normal air entry. No stridor. No respiratory distress. Air movement is not decreased. She has no wheezes. She has no rhonchi. She hasno rales. She exhibits no retraction. Abdominal: Soft. Bowel sounds are normal. She exhibits distension and mass (probable stool palpablein all 4 quadrants). There is no hepatosplenomegaly. There is no tenderness. There is no rebound and no guarding. No hernia. Genitourinary: Stool noted in underwear Musculoskeletal: Normal range of motion. Neurological: She is alert. Skin: Skin is warm. Capillary refill takes less than 3 seconds. No rash noted. She is not diaphoretic. Procedures Procedures Lab/SPO2 Interpretation Progress Notes STUDY TEXT Abdomen series, upright and supine AP views 03/24/2012 Since January 22, 2012, a large amount of stool again outlines the colon and rectum consistent with constipation. The volume is minimally decreased since last exam. There is no free air and no mural air. Visible lung bases are clear. IMPRESSION Large amount of retained stool consistent with constipation. Signed by: SHAHID COSBY MD on SatMar 24, 2012 12:38:00 PM CDT Reading Physician: Shahid Cosby MD Contacted Attending from GI Dr. Cooper and orders given as well as to admit to her service. Will place NG and start golytely at 50 ml/hr per GI instructions. ED Course Medical Decision Making I have reviewed the: Nursing Notes and Vitals. I have interpreted the following results: X-Ray. I have discussed the case with Family/Caregiver. Orders Placed This Encounter ??? XR ABD OBSTR SERIES Standing Status: Standing Number of Occurrences: 1 Standing Expiration Date: Order Specific Question: What date do you want this order to be performed? Answer: 03/24/2012 Order Specific Question: What time of day do you want this order performed? Answer: 11:54 AM Order Specific Question: Exam to be performed? Answer: Per Radiologist protocol ??? polyethylene glycol (GoLYTELY;NuLYTELY) 240 G solution 4,000 mL Sig: Clinical Impression Encounter Diagnosis Name Primary? Constipation * Dee Malloy RN - 03/24/2012 12:35 PM CDT Returned to E.R from x-ray ambulatory accompained by mother and staff member. documented in this encounter Miscellaneous Notes * Miscellaneous Scans - Document, Scanned - 03/28/2012 8:23 AM CDT * Miscellaneous Scans - Document, Scanned - 03/28/2012 8:23 AM CDT * Miscellaneous Scans - Document, Scanned - 03/28/2012 8:23 AM CDT documented in this encounter Plan of Treatment Not on file documented as of this encounter Procedures Procedure Name Priority Date/Time Associated Diagnosis Comments COMPREHENSIVE METABOLIC PANEL Routine 03/25/2012 8:13 AM CDT XR ABD OBSTRUCTION SERIES 2VW STAT 03/24/2012 12:33 PM CDT Constipation documented in this encounter Results * (ABNORMAL) COMPREHENSIVE METABOLIC PANEL (03/25/2012 8:13 AM CDT) Glucose 99 70 - 105 mg/dL 03/25/2012 9:27 AM CDT [facility] Sodium 142 136 - 145 mmol/L 03/25/2012 9:27 AM CDT [facility] Potassium 4.0 3.5 - 5.1 mmol/L 03/25/2012 9:27 AM [facility] Chloride 108(H) 98 - 107 mmol/L 03/25/2012 9:27 AM [facility] CO2 19(L) 20 - 28 mmol/L 03/25/2012 9:27 AM [facility] Calcium 9.14 9.12 - 10.48 mg/dL 03/25/2012 9:27 AM [facility] Anion Gap 15 5 - 20 mmol/L 03/25/2012 9:27 AM [facility] BUN 7.8 6.7 - 19.6 mg/dL 03/25/2012 9:27 AM [facility] Creatinine 0.53 0.53 - 0.80 mg/dL 03/25/2012 9:27 AM [facility] eGFR by MDRD ml/min/1.7 3m2 03/25/2012 9:27 AM [facility] Comment:eGFR calculations ar e not performed for children under 18 years old. eGFR by MDRD ml/min/1.7 3m2 03/25/2012 9:27 AM [facility] Comment:eGFR calculations ar e not performed for children under 18 years old. Alkaline Phosphatase 230 100 - 320 U/L 03/25/2012 9:27 AM [facility] ALT 15 8 - 65 U/L 03/25/2012 9:27 AM [facility] AST 29 3 - 35 U/L 03/25/2012 9:27 AM [facility] Protein Total 6.1(L) 6.2 - 9.1 gm/dL 03/25/2012 9:27 AM [facility] Albumin 3.5(L) 3.6 - 4.9 gm/dL 03/25/2012 9:27 AM [facility] Bilirubin Total 0.8 0.3 - 1.2 mg/dL 03/25/2012 9:27 AM [facility] Blood specimen (specimen) BLOOD SPECIMEN / Unknown 03/25/2012 8:13 AM T 03/25/2012 8:18 AM T Carroll Navarro MD LAB - CHEMISTRY ERIN AGUILAR [facility] Organization Address City/State/ZIP Co de Phone Number [facility] [id number] [place] [address] * XR ABD OBSTR SERIES (03/24/2012 12:33 PM CDT) Anatomical Region Laterality Modality Abdomen Radiographic Melina ging 03/24/2012 12:3 8 PM CDT Impressions 03/24/2012 12:38 PM CDT Large amount of retained stool consistent with constipation. Narrative 03/24/2012 12:38 PM CDT Abdomen series, upright and supine AP views 03/24/2012 Since January 22, 2012, a large amount of stool again outlines the colon and rectum consistent with constipation. The volume is minimally decreased since last exam. There is no free air and no mural air. Visible lung bases are clear. Procedure Note Shahid Cosby MD - 03/24/2012 Abdomen series, upright and supine AP views 03/24/2012 Since January 22, 2012, a large amount of stool again outlines the colon and rectum consistent with constipation. The volume is minimally decreased since last exam. There is no free air and no mural air. Visible lung bases are clear. IMPRESSION Large amount of retained stool consistent with constipation. Elvi Xiong PLUGGER WORKER-PATIENT ACCOUNTING REPRESENTATIVE DIAGNOSTI C IMAGING ORDERABLES documented in this encounter Visit Diagnoses Diagnosis Constipation Unspecified constipation Constipation Encounter for nasogastric (NG) tube placement Fitting and adjustment of other gastrointestinal appliance and device Fecal impaction(560.32) (HCC) Fecal impaction Bipolar 1 disorder (HCC) Bipolar I disorder, most recent episode (or current) unspecified Behavior disorder Unspecified disturbance of conduct Fecal impaction(560.32) (HCC) Fecal impaction ADHD (attention deficit hyperactivity disorder) Attention deficit disorder with hyperactivity Advance care planning Other specified counseling documented in this encounter Administered Medications Inactive Administered Medications - up to 3 most recent administrations Medication Order MAR Action Action Date Dose Rate Site cloNIDine (CATAPRES) tablet 0.1 mg 0.1 mg (0.50365 mg/kg), Oral, 3 TIMES DAILY, First dose (after last modification) on 03/24/12 at 2030, Until Discontinued $ Given 03/26/2012 2:36 PM CDT 0.1 mg $ Given 03/26/2012 7:54 AM CDT 0.1 mg $ Given 03/25/2012 8:42 PM CDT 0.1 mg dextrose 5 % and 0.9% nacl infusion at 33 mL/hr, Intravenous, CONTINUOUS, Starting on Sat03/24/12 at 1545, Until Sat03/26/12 at 1342 Rate Change 03/26/2012 7:39 AM CDT 33 mL /hr $ New Bag/Syringe 03/26/2012 12:56 AM CDT 66 mL /hr $ New Bag/Syringe 03/25/2012 5:26 PM CDT 66 mL/ hr diphenhydrAMINE (BENADRYL) solution 12.5 mg 12.5 mg (0.473 mg/kg), Oral, ONCE, 1 dose, On Sat03/25/12 at 2115 $ Given 03/25/2012 9:05 PM CDT 12.5 mg gabapentin (NEURONTIN) capsule 100 mg 100 mg (3.79 mg/kg), Oral, 3 TIMES DAILY, First dose on Sat03/24/12 at 2030, Until Discontinued $ Given 03/26/2012 7:53 AM CDT 100 mg $ Given 03/25/2012 8:38 PM CDT 100 mg $ Given 03/25/2012 4:17 PM CDT 100 mg polyethylene glycol (GoLYTELY;NuLYTELY) 240 G solution 4,000 mL 4,000 mL (152 mL/kg = 4 L), Per NG/OG Tube, CONTINUOUS, Starting on Sat03/24/12 at 1400, Until Sat03/24/12 at 1533, Please run at 50 ml/hr through NG $ New Bag/Syringe 03/24/2012 2:56 PM CDT 4,000 mL 50 mL/hr polyethylene glycol (GoLYTELY;NuLYTELY) 240 G solution 4,000 mL 4,000 mL (152 mL/kg = 4 L), Per NG/OG Tube, CONTINUOUS, Starting on Sat03/24/12 at 1545, Until Sat03/26/12 at 1342, Please run at 50 ml/hr through NG Rate Change 03/24/2012 3:46 PM CDT 4,000 mL 90 mL/hr QUEtiapine (SEROquel) tablet 100 mg 100 mg (3.79 mg/kg), Oral, 2 TIMES DAILY, First dose (after last modification) on Sat03/24/12 at 1900, Until Discontinued $ Given 03/26/2012 2:35 PM CDT 100 mg $ Given 03/25/2012 8:42 PM CDT 100 mg $ Given 03/25/2012 2:32 PM CDT 100 mg QUEtiapine (SEROquel) tablet 200 mg 200 mg (7.58 mg/kg), Oral, EVERY MORNING, First dose (after last modification) on Sat03/25/12 at 0800, Until Discontinued $ Given 03/26/2012 7:54 AM CDT 200 mg $ Given 03/25/2012 8:28 AM CDT 200 mg sertraline (ZOLOFT) tablet 100 mg 100 mg (3.79 mg/kg), Oral, 2 TIMES DAILY, First dose on Sat03/24/12 at 1900, Until Discontinued, Avoid concurrent administration with grapefruit juice $ Given 03/26/2012 7:53 AM CDT 100 mg $ Given 03/25/2012 8:38 PM CDT 100 mg $ Given 03/25/2012 8:28 AM CDT 100 mg documented in this encounter Active and Recently Administered Medications Times are shown in CDT. Scheduled Medication Order 03/24/2012 03/25/2012 03/26/2012 cloNIDine (CATAPRES) tablet 0.1 mg (CANCELED) 0.1 mg (0.06517 mg/kg), Oral, 3 TIMES DAILY, First dose (after last modification) on Sat03/24/12 at 2030, Until Discontinued 2037 ($ Given - Provider: Mekhi Rosenberg RN) 0828 ($ Given - Provider: Madonna Lu RN)1433 ($ Given - Provider: Madonna Lu RN)204 ($ Given - Provider: Marichuy Orozco, SHANELL) 0754 ($ Given - Provider: Amelia Grant, SHANELL)1436 ($ Given - Provider: Sofiya Kramer, SHANELL) diphenhydrAMINE (BENADRYL) solution 12.5 mg (COMPLETED) 12.5 mg (0.473 mg/kg), Oral, ONCE, 1 dose, On Sat03/25/12 at 2115 2105 ($ Given - Provider: Marichuy Orozco, SHANELL) gabapentin (NEURONTIN) capsule 100 mg (CANCELED) 100 mg (3.79 mg/kg), Oral, 3 TIMES DAILY, First dose on Sat03/24/12 at 2030, Until Discontinued 1821 ($ Given - Provider: Marly Saavedra - Comment: missed 1600dose- waiting on medications from pharmacy)2129 (Not Administered - Provider: Mekhi Rosenberg RN - Reason: Patient sleeping) 08 ($ Given - Provider: Madonna Lu RN)161 ($ Given - Provider: Madonna Lu RN)2037 ($ Given - Provider: Marichuy Orozco, SHANELL) 075 ($ Given - Provider: Amelia Grant, SHANELL) QUEtiapine (SEROquel) tablet 100 mg (CANCELED) 100 mg (3.79 mg/kg), Oral, 2 TIMES DAILY, First dose (after last modification) on Sat03/24/12 at 1900, Until Discontinued 2030 ($ Given - Provider: Mekhi Rosenberg RN) 143 ($ Given - Provider: Madonna Lu RN)2041 ($ Given - Provider: Marichuy Orozco, SHANELL) 143 ($ Given - Provider: Sofiya Kramer RN) QUEtiapine (SEROquel) tablet 200 mg (CANCELED) 200 mg (7.58 mg/kg), Oral, EVERY MORNING, First dose (after last modification) on Sat03/25/12 at 0800, Until Discontinued 827 ($ Given - Provider: Madonna Lu RN) 075 ($ Given - Provider: Amelia Grant, SHANELL) sertraline (ZOLOFT) tablet 100 mg (CANCELED) 100 mg (3.79 mg/kg), Oral, 2 TIMES DAILY, First dose on Sat03/24/12 at 1900, Until Discontinued, Avoid concurrent administration with grapefruit juice 2030 ($ Given - Provider: Mekhi Rosenberg RN) 827 ($ Given - Provider: Madonna Lu RN)2037 ($ Given - Provider: Marichuy Orozco, SHANELL) 075 ($ Given - Provider: Amelia Grant RN) Continuous Medication Order 03/24/2012 03/25/2012 03/26/2012 dextrose 5 % and 0.9% nacl infusion (CANCELED) at 33 mL/hr, Intravenous, CONTINUOUS, Starting on Sat03/24/12 at 1545, Until Sat03/26/12 at 1342 1822 ($ New Bag/Syringe - Provider: Marly Saavedra - Comment: waiting on medications from pharmacy) 0235 ($ New Bag/Syringe - Provider: Mekhi Rosenberg, RN)1012 ($ New Bag/Syringe - Provider: Sofiya Kramer, SHANELL)1726 ($ New Bag/Syringe - Provider: Madonna Lu, SHANELL) 0056 ($ New Bag/Syringe - Provider: Marichuy Orozco, SHANELL)0739 (Rate Change - Provider: Amelia Grant, SHANELL) polyethylene glycol (GoLYTELY;NuLYTELY) 240 G solution 4,000 mL (CANCELED) 4,000 mL (152 mL/kg = 4 L), Per NG/OG Tube, CONTINUOUS, Starting on Sat03/24/12 at 1400, Until Sat03/24/12 at 1533, Please run at 50 ml/hr through NG 1456 ($ New Bag/Syringe - Provider: Dee Malloy RN) polyethylene glycol (GoLYTELY;NuLYTELY) 240 G solution 4,000 mL (CANCELED) 4,000 mL (152 mL/kg = 4 L), Per NG/OG Tube, CONTINUOUS, Starting on Sat03/24/12 at 1545, Until Sat03/26/12 at 1342, Please run at 50 ml/hr through NG 1546 (Rate Change - Provider: Marly Saavedra) documented in this encounter Care Teams Rn Residential Relationship Specialty Start Date End Date Geo Goyal MD [address] [place] [id number] PCP - General 08/24/09 01/15/22 documented as of this encounter
--- OUTSIDE RECORDS SUMMARY | 2024-08-02 02:36 | XMS_ITS | Encounter Summary ---
Author Organization [facility] Address [address] [place] [address] Care Team Providers Care English Tutor Name Role Phone Geo Goyal MD Primary Care Provider [phone] Reason for Visit * Reason Onset Date Comments Update 03/18/2012 Encounter Details Date Type Department Care Team (Late st Contact Info) Description 03/18/2012 Telephone [facility] - [address] [place] [address] Barry Hernandez MD [facility] [place] [address] Update Social History Tobacco Use Types Packs/Day [...] Telephone Encounter - Chastity Herrera RN - 03/18/2012 3:41 PM CDT Talked with Helena Chavez, they had a team meeting regarding pt today. They would like to have [facility]come to [facility] next week for a tour & some evals--psych & physiology want to meet with pt to get a feel for whether they can get her to buy into the treatment plan, which is needed forthe proposed stay there to be beneficial. Discussed with Helena that we initially had difficulty getting pt to sit on the toilet, etc, but that we did get her to cooperate with our toileting plan & was sitting on the toilet willingly upon discharge. Discussed that there is a dynamic with pt/mother that is not conducive to success at this time. Kathy asked me to let mother know that they will be calling her to set up this visit/evaluation. Talked with mother, she states that pt had been doing fairly well with stooling since discharge, but has been in one of her moods for the past week & will not cooperate at all. Mom is sure thatpt has not expelled any of the enema that she gave 2 days ago & pt refuses to even get close tothe toilet. She continues to get the regular doses of miralax--has even given 3 caps/day a couple times with no results. Mom states that pt does not appear to be in any distress & is still eating/drinking some. Mom considering coming to the ED this eleazar but then decided to wait one more day because school starts tomorrow & she hopes that the return to structure at school might break the foul mood. Told mom to call us if she plans to come to the ED. * Telephone Encounter - Chastity Herrera RN - 03/18/2012 12:23 PM CDT Pt was supposed to be on the waiting list for a bed @ [facility]--we have not received a call. LM with admission coordinator asking for call to verify status of this. * Telephone Encounter - Mikaela Zee - 03/18/2012 12:03 PM CDT Mom was told to give enima over weekend which she did, but the enima stuff did not come out and patient will not go to the bathroom. Mom is not sure what to do? documented in this encounter Plan of Treatment Not on file documented as of this encounter Visit Diagnoses Not on filedocumented in this encounter Care Teams English Tutor Relationship Specialty Start Date End Date Geo Goyal MD [address] [place] [id number] PCP - General 08/24/09 01/15/22 documented as of this encounter
--- OUTSIDE RECORDS SUMMARY | 2024-08-02 02:36 | XMS_ITS | Encounter Summary ---
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 that can cause constipation. Plan: Continue NPO, MIVF Sips to take home meds NG with GoLytely @ 55ml/hr, will continue increase by 5 ml/hr as patient tolerates to goal of 70mlhr. Would continue until patient is having clear watery BM. Patient to ambulate at least QID Develop new bowel regimen, per Mom was suppose to be on 1 cap Miralax BID- will d/w team increasing, as well as scheduled bath room times, addition of pill form stool softener +/- stimulant ??? ADHD (attention deficit hyperactivity disorder) 06/07/2011 Stable on Focalin 10mg qAM, 11am, and 1500. ??? Bipolar 1 disorder 06/07/2011 Also with ADHD and ODD followed by outside psychiatrist. Plan Will continue home meds: Seroquel 200mg qAM, 100mg 1300, 100mg 1900. Zoloft 100mg qAM, 100 mg 1900 Clonidine .3mg qHS Swapna Guy MD * Barry Del Rio RN - 01/23/2012 6:11 AM CDT Tolerated feeding tube placement and IV restart well. Occasional brief emotional outbursts,screaming and crying after mom left but quieted when given DVD to watch then slept after HS meds given. Tolerated Golytely feeds without emesis and rate gradually increased to 70mls/hr at 0400 after initial rate of 50mls/hr at 2300.No stools as of 0600. * Swapna Guy MD - 01/22/2012 6:47 PM CDT Pediatric Resident Admission Note Admit Date: 01/22/2012 4:45 PM Chief Complaint Abdominal distension, concerned for constipation History of Present Illness Mae Frances is a 11 y.o. female with h/o chronic constipation who presents for an evaluationof constipation. Mom brought patient to the ED today because her stomach continues to get larger. Per mother patient has been to the ER 3 times in the past 3 months for over-distention of her stomach and has had multiple hospitalizations for constipation. Mom states that she has tried everything,however nothing seems to be working anymore and the patient is not compliant in taking her medications. During most recent admission 3 months ago, received Golytely via NG for several days and was sent home on Magnesium citrate, Miralax, and instructed to increased fiber in diet. Mom states that the Magnesium citrate did nothing but cause Yolanda to have diarrhea on the way home. Has increased fiber in Yolanda's diet; can not get Yolanda to take Miralax daily. Mother is frustrated and concerned aspatient is on many psychiatric medications that can cause constipation. She often asks Yolanda if she needs to use rest room and Yolanda always says no. Taking normal PO. No nausea, vomiting, diarrhea, or abdominal pain. In ED KUB with stool filled colon and small bowel. Patient was given a pediatric fleets enema and then admitted to the Gastroenterology service for further care and management. SurgicalHx - Tonsillectomy two years ago Immune - UTD FamHx - Maternal uncle ADHD, bipolar. Patient's cousin has same mental illness picture SocialHx - Mother, step-father, patient, little sister (3 years old, healthy) Past Medical History No history on file. Past Medical History Diagnosis Date ??? Headache started approximately 2 years ago ??? S/P colonoscopy age 6y/o ??? ADHD (attention deficit hyperactivity disorder) ??? Sensory integration disorder ??? Bipolar affective ??? ODD (oppositional defiant disorder) ??? Aggression ??? Learning disability ??? Constipation, chronic Past Surgical History Procedure Date ??? Tonsillectomy 2010 Immunizations Immunization status: reportedly up-to-date. Allergies Allergies Allergen Reactions ??? Tegretol (Carbamazepine) [...] younger sister, 3yo, healthy Review of Systems Constitutional: Negative for fever, decreased activity, anorexia Eyes: Negative for redness, discharge and changes in vision ENT: Ears: Negative for frequent ear infections Nose: Negative for congestion and rhinorrhea Mouth/Throat: Negative for sore throat and hoarseness Respiratory: Negative for wheezing, retractions and cough Cardiovascular: Negative for irregular heart beat, heart murmur and chest pain Gastrointestinal: Positive for constipation and abdominal distension. Negative for abdominal pain, nausea, vomiting, and diarrhea Genitourinary: female Negative for dysuria, frequency, hesitancy, urinary tract infection Skin: Negative for rash Hematologic/Lymphatic: Negative for anemia, abnormal bruising, blood clots, night sweats Musculoskeletal: Negative for joint or muscle pain, redness, swelling, or decreased ROM Neurological: Negative for dizziness, syncope, seizures, involuntary movements Behavioral/Psych: Positive for ADHD, ODD, Bipolar Endocrine: Negative for cold intolerance, heat intolerance, polydipsia, polyuria Exam Vitals BP: 117/81 mmHg (01/22/121849) Temp: 97.8 ??F (01/22/121849) Pulse: 80 (01/22/121849) Resp: 16 (01/22/121849) Weight: 26.2 kg (57 lb 12.2 oz) (01/22/12 1651) General: awake, alert, no acute distress Head: NC/AT, no sinus tenderness Eyes: sclera and conjunctiva clear, EOMI and PERRL, lids normal Nose: clear, no discharge Oropharynx: moist mucous membranes, no pharyngeal erythema, no tonsilar enlargement Neck: supple, non-tender, with full ROM, and no lymphadenopathy Cardiovascular: regular rate and rhythm, normal S1 and S2, no murmurs Chest: breath sounds symmetrical without rales or wheezes, good air movement and relaxed breathing without tachypnea or accessory muscle use Abdomen: soft, normal bowel sounds, distended with palpable stool throughout, nontender Musculoskeletal: No clubbing, cyanosis or edema Skin: no rashes Labs/Objective BMP pending Active Hospital Problems Diagnoses Date Noted ??? Constipation 06/07/2011 11 yo with h/o ADHD, ODD, Bipolar, and chronic constipation presents with abdominal distension and no BM for >2 weeks, patient has not been compliant with daily Miralax. KUB will large stool burdenthroughout colon and small bowel. Has had multiple ED visits and prior hospitalizations for constipation, last 3 months ago, prior in Nov with negative FTT/constipation work-up. Likely multifactorialgiven history of constipation, no consistent daily bowel regimen and multiple medications that can cause constipation. Plan: Baseline BMP NPO, MIVF Sips to take home meds NG with GoLytely @ 50ml/hr, increase by 5 ml/hr to goal of 70mlhr. Would continue until patient is having clear watery BM. Encourage patient to ambulate QID Develop new bowel regimen, per Mom was suppose to be on 1 cap Miralax BID- will d/w team increasing, as well as scheduled bath room times, addition of pill form stool softener +/- stimulant ??? ADHD (attention deficit hyperactivity disorder) 06/07/2011 Stable on Focalin 10mg qAM, 11am, and 1500. ??? Bipolar 1 disorder 06/07/2011 Also with ADHD and ODD followed by outside psychiatrist. Plan Will continue home meds: Seroquel 200mg qAM, 100mg 1300, 100mg 1900. Zoloft 100mg qAM, 100 mg 1900 Clonidine 3mg qHS Swapna Guy MD CC: Geo Goyal MD [address] [place] [address] [address] / [place] [id number] documented in this encounter H&P Notes * Darin Contreras MD - 01/23/2012 12:09 PM CDT Pediatric Attending Admission Note Admit Date: 01/22/2012 4:45 PM I have interviewed the patient/family and examined this patient. I have reviewed and confirmed/revised the findings of the resident. My findings (lópez elements and supplemental information) are as follows: Chief Complaint Constipation, poor feeding. History of Present Illness Mae Frances is a 11 y.o. female with a h/o fecal impaction, constipation and psych problems.The family is not always able to cooperate with her care. She now presents with fecal impaction, low appetite, failure of outpatient disimpaction with a recent attempt at magnesium citrate. She is now seen in the ED and admitted. Other Pertinent History Past Medical History Diagnosis Date ??? Headache started approximately 2 years ago ??? S/P colonoscopy age 6y/o ??? ADHD (attention deficit hyperactivity disorder) ??? Sensory integration disorder ??? Bipolar affective ??? ODD (oppositional defiant disorder) ??? Aggression ??? Learning disability ??? Constipation, chronic Exam BP 92/58 Pulse 94 Temp 97.6 ??F Resp 22 Wt 25.4 kg (56 lb) BMI 15.26 kg/m2 Trying to act like she is sleeping and ignoring me, no distress. No rash, no jaundice. Eyes closed Ears normal, nose clear. Head atraumatic. Neck supple, no adenopathy. Mouth normal, no exudate. Lungs BS equal, no wheezes. Heart RR, no gallops with 2/6 functional murmur. Well perfused, equal pulses. Abdomen soft, non-tender, fecal masses are palpable throughout and her abd is moderately distended. Extremities no clubbing, cyanosis, or edema. Normal tone Back non-tender, no lesions. Grossly intact cranial nerves. Lab/Other Information Note recent lytes. Patient Active Problem List Diagnoses ??? Fecal impaction ??? Poor weight gain in child ??? ADHD (attention deficit hyperactivity disorder) ??? Bipolar 1 disorder ??? Learning disability ??? ODD (oppositional defiant disorder) ??? Weight loss Plan 1. IVF support and NG golytes. 2. Support of family and intense support of a bowel regimen she can follow at home. 3. Confer with her psychiatrist on her meds, confirm doses family reports and reinforce her program. See resident's H&P further details. Darin Contreras MD [phone] CC: Geo Goyal MD [address] [place] [address] [address] [place] [address] * Swapna Guy MD - 01/23/2012 6:38 AM CDT Submitted as progress note in error Pediatric Resident Admission Note Admit Date: 01/22/2012 4:45 PM Chief Complaint Abdominal distension, concerned for constipation History of Present Illness Mae Frances is a 11 y.o. female with h/o chronic constipation who presents for an evaluationof constipation. Mom brought patient to the ED today because her stomach continues to get larger. Per mother patient has been to the ER 3 times in the past 3 months for over-distention of her stomach and has had multiple hospitalizations for constipation. Mom states that she has tried everything,however nothing seems to be working anymore and the patient is not compliant in taking her medications. During most recent admission 3 months ago, received Golytely via NG for several days and was sent home on Magnesium citrate, Miralax, and instructed to increased fiber in diet. Mom states that the Magnesium citrate did nothing but cause Yolanda to have diarrhea on the way home. Has increased fiber in Yolanda's diet; can not get Yolanda to take Miralax daily. Mother is frustrated and concerned aspatient is on many psychiatric medications that can cause constipation. She often asks Yolanda if she needs to use rest room and Yolanda always says no. Taking normal PO. No nausea, vomiting, diarrhea, or abdominal pain. In ED KUB with stool filled colon and small bowel. Patient was given a pediatric fleets enema and then admitted to the Gastroenterology service for further care and management. SurgicalHx - Tonsillectomy two years ago Immune - UTD FamHx - Maternal uncle ADHD, bipolar. Patient's cousin has same mental illness picture SocialHx - Mother, step-father, patient, little sister (3 years old, healthy) Past Medical History No history on file. Past Medical History Diagnosis Date ??? Headache started approximately 2 years ago ??? S/P colonoscopy age 6y/o ??? ADHD (attention deficit hyperactivity disorder) ??? Sensory integration disorder ??? Bipolar affective ??? ODD (oppositional defiant disorder) ??? Aggression ??? Learning disability ??? Constipation, chronic Past Surgical History Procedure Date ??? Tonsillectomy 2010 Immunizations Immunization status: reportedly up-to-date. Allergies Allergies Allergen Reactions ??? Tegretol (Carbamazepine) [...] younger sister, 3yo, healthy Review of Systems Constitutional: Negative for fever, decreased activity, anorexia Eyes: Negative for redness, discharge and changes in vision ENT: Ears: Negative for frequent ear infections Nose: Negative for congestion and rhinorrhea Mouth/Throat: Negative for sore throat and hoarseness Respiratory: Negative for wheezing, retractions and cough Cardiovascular: Negative for irregular heart beat, heart murmur and chest pain Gastrointestinal: Positive for constipation and abdominal distension. Negative for abdominal pain, nausea, vomiting, and diarrhea Genitourinary: female Negative for dysuria, frequency, hesitancy, urinary tract infection Skin: Negative for rash Hematologic/Lymphatic: Negative for anemia, abnormal bruising, blood clots, night sweats Musculoskeletal: Negative for joint or muscle pain, redness, swelling, or decreased ROM Neurological: Negative for dizziness, syncope, seizures, involuntary movements Behavioral/Psych: Positive for ADHD, ODD, Bipolar Endocrine: Negative for cold intolerance, heat intolerance, polydipsia, polyuria Exam Vitals BP: 117/81 mmHg (01/22/121849) Temp: 97.8 ??F (01/22/121849) Pulse: 80 (01/22/121849) Resp: 16 (01/22/121849) Weight: 26.2 kg (57 lb 12.2 oz) (01/22/121650) General: awake, alert, no acute distress Head: NC/AT, no sinus tenderness Eyes: sclera and conjunctiva clear, EOMI and PERRL, lids normal Nose: clear, no discharge Oropharynx: moist mucous membranes, no pharyngeal erythema, no tonsilar enlargement Neck: supple, non-tender, with full ROM, and no lymphadenopathy Cardiovascular: regular rate and rhythm, normal S1 and S2, no murmurs Chest: breath sounds symmetrical without rales or wheezes, good air movement and relaxed breathing without tachypnea or accessory muscle use Abdomen: soft, normal bowel sounds, distended with palpable stool throughout, nontender Musculoskeletal: No clubbing, cyanosis or edema Skin: no rashes Labs/Objective BMP pending Active Hospital Problems Diagnoses Date Noted ??? Constipation 06/07/2011 11 yo with h/o ADHD, ODD, Bipolar, and chronic constipation presents with abdominal distension and no BM for >2 weeks, patient has not been compliant with daily Miralax. KUB will large stool burdenthroughout colon and small bowel. Has had multiple ED visits and prior hospitalizations for constipation, last 3 months ago, prior in Nov with negative FTT/constipation work-up. Likely multifactorialgiven history of constipation, no consistent daily bowel regimen and multiple medications that can cause constipation. Plan: Baseline BMP NPO, MIVF Sips to take home meds NG with GoLytely @ 50ml/hr, increase by 5 ml/hr to goal of 70mlhr. Would continue until patient is having clear watery BM. Encourage patient to ambulate QID Develop new bowel regimen, per Mom was suppose to be on 1 cap Miralax BID- will d/w team increasing, as well as scheduled bath room times, addition of pill form stool softener +/- stimulant ??? ADHD (attention deficit hyperactivity disorder) 06/07/2011 Stable on Focalin 10mg qAM, 11am, and 1500. ??? Bipolar 1 disorder 06/07/2011 Also with ADHD and ODD followed by outside psychiatrist. Plan Will continue home meds: Seroquel 200mg qAM, 100mg 1300, 100mg 1900. Zoloft 100mg qAM, 100 mg 1900 Clonidine 3mg qHS Swapna Guy MD CC: Geo Goyal MD [address] [place] [address] [address] [place] [address] documented in this encounter Procedure Notes * Document, Scanned - 02/15/2012 11:07 AM CDTAssociated Order(s): IMAGING/RADIOLOGY/XRAY RESULTS ORDER * Document, Scanned - 02/06/2012 8:11 PM CDTAssociated Order(s): IMAGING/RADIOLOGY/XRAY RESULTS ORDER * Document, Scanned - 02/06/2012 8:11 PM CDTAssociated Order(s): LAB RESULTS ORDER * Document, Scanned - 02/05/2012 8:42 AM CDTAssociated Order(s): PATHOLOGY/CYTOLOGY REPORT ORDER * Damien Middleton DO - 01/29/2012 10:51 AM CDT POST-SEDATION EVALUATION Mae Frances is a 11 y.o. female sedated today for enema and fluoroscopy. The patient is sufficiently recovered from the acute administration of the sedation so as to participate in the evaluation or neurologic status has returned to pre-sedation or expected level of consciousness. The post-sedation assessment was completed based upon the elements below. The patient is stable andhas adequately recovered from sedation unless otherwise noted. Post-sedation Evaluation: Temp: 97.4 ??F Pulse: 82 Resp: 20 SpO2: 100 % BP: 114/75 mmHg Pain Rating Score #: 0 Resp function: Natural Airway Cardiac Function: Stable Mental Status : Awake/Alert Pain: Comfortable / acceptable Nausea / Vomiting: None Post Procedure Hydration: Adequate A post-op evaluation was performed on the patient with the following assessment: No Apparent Anesthesia Complications;Vital Signs and Mental Status unchanged from Preop Unless otherwise indicated, the patient is being discharged from sedation service care. Damien Middleton DO * Damien Middleton DO - 01/29/2012 10:46 AM CDT PROCEDURAL SEDATION NOTE Evaluated By: Damien Middleton DO, 01/29/2012 Mae Frances is a 11 y.o. female who is scheduled today for a water soluble enema and fluoroscopy with procedural sedation. Patient Active Problem List Diagnoses ??? Fecal impaction ??? Poor weight gain in child ??? ADHD (attention deficit hyperactivity disorder) ??? Bipolar 1 disorder ??? Learning disability ??? ODD (oppositional defiant disorder) ??? Weight loss ??? Behavior disorder ??? Counseling regarding goals of care Past Medical History Diagnosis Date ??? Headache started approximately 2 years ago ??? S/P colonoscopy age 6y/o ??? ADHD (attention deficit hyperactivity disorder) ??? Sensory integration disorder ??? Bipolar affective ??? ODD (oppositional defiant disorder) ??? Aggression ??? Learning disability ??? Constipation, chronic Past Surgical History Procedure Date ??? Tonsillectomy 2010 Allergies Tegretol and Stimulant laxative Meds Current Facility-Administered Medications Medication Dose Route Frequency Provider Last Rate Last Dose ??? midazolam (VERSED) injection 1.27 mg 0.05 mg/kg Intravenous intra-Procedure multiple Damien Middleton, DO ??? ketamine (KETALAR) injection 12.7-50.8 mg 0.5-2 mg/kg Intravenous intra- Procedure multiple Damien Middleton, DO ??? iothalamate meglumine (CYSTO CONRAY II) 17.2 % solution Urethral Contrast - Once Patric Good MD 2,500 mL at 01/29/12 0902 ??? dextrose 5 % and 0.45% NaCl infusion Intravenous Continuous Swapna Guy MD 55 mL/hr at 01/28/12 2338 ??? 0.9% NaCl injection 2 mL 2 mL Intracatheter q4h Swapna Guy MD ??? 0.9% NaCl injection 3 mL 3 mL Intracatheter PRN Swapna Guy MD ??? acetaminophen (TYLENOL) tablet 325 mg 325 mg Oral q4h PRN Swanpa Guy MD ??? ibuprofen (MOTRIN) tablet 200 mg 200 mg Oral q4h PRN Swapna Guy MD ??? saline nasal spray (OCEAN; BABY AYR) 0.65 % nasal spray 1 [place] 1 [place] Each Nostril PRN Swapna Guy MD ??? white petrolatum (VASELINE) ointment Topical PRN Swapna Guy MD ??? sertraline (ZOLOFT) tablet 100 mg 100 mg Oral BID Swapna Guy MD 100 mg at 01/29/12 0737 ??? cloNIDine (CATAPRES) tablet 0.3 mg 0.3 mg Oral NIGHTLY Libra Somers DO 0.3 mg at 01/28/12 184 ??? QUEtiapine (SEROquel) tablet 200 mg 200 mg Oral QAM Libra Somers DO 200 mg at 01/29/12 0736 And ??? QUEtiapine (SEROquel) tablet 100 mg 100 mg Oral BID Libra Somers DO 100 mg at 01/28/121845 I reviewed previous documentation: Yes ASA Class: Mild Systemic disease Likelihood of discomfort: Fair Ability to remain immobile: Poor Anticipated level of sedation: Moderate Physical Exam BP 114/75 Pulse 82 Temp 97.4 ??F Resp 20 Wt 25.4 kg (56 lb) BMI 15.26 kg/m2 Gen: Awake, alert, NAD Nose: no rhinorrhea or congestion Neck:supple, no LAD, no masses Heart: normal S1/S2, no murmur Lungs: Clear to Auscultation Bilaterally Sedation/Procedure Start Time: 08 Time: 0830 2mg IV Versed . Time: 0840 Patient minimally sedated and vital signs stable. Time: 0847 15mg IV ketamine given and pt moderately sedated. Time: 0850 enema and fluoroscopy proceeding, vital signs stable and 15mg IV ketamine given . Time: 09 Patient deeply sedated, enema and fluoroscopy proceeding and vital signs stable Time: 09 Patient moderately sedated, enema and fluoroscopy proceeding and vital signs stable Time: 914 Patient moderately sedated, enema and fluoroscopy proceeding and vital signs stable Time: 924 Patient minimally sedated, enema and fluoroscopy completed and vital signs stable Stop Time: 934 This sedation was personally performed by me. I was present throughout the entire procedure. Damien Middleton DO Color: Green Credentialed through:: 08/04/12 documented in this encounter Consult Notes * Kamini Sharif RN, RN - 02/01/2012 1:38 PM CDTAssociated Order(s): IP CONSULT TO CASE MANAGEMENT Referral made to Bree @ [facility] [phone] re: home visits. Kamini Sharif RN-Case Management [phone] * Carroll Montilla MD - 01/30/2012 3:31 PM CDTAssociated Order(s): IP CONSULT TO PEDIATRIC SURGERY Pediatric General Surgery History and Physical Patient's Primary Care Physician: Geo Goyal MD Name: Mae Frances Age: 11 y.o. 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 Has tried Miralax, mag citrate, and enemas in different combinations for yearsand mother has been dissatisfied with the results. Her daughter does not usually complain of pain when she hasn't had a bowel movement in the past. Mother notes that she suspects her Mae holds bowel movements. LGI performed yesterday in radiology was suspicious for short segment Hirschsprung's. Surgery asked to evaluate the need for a rectal biopsy. Past Medical History Diagnosis Date ??? Headache started approximately 2 years ago ??? S/P colonoscopy age 6y/o ??? ADHD (attention deficit hyperactivity disorder) ??? Sensory integration disorder ??? Bipolar affective ??? ODD (oppositional defiant disorder) ??? Aggression ??? Learning disability ??? Constipation, chronic Past Surgical History Procedure Date ??? Tonsillectomy 2010 Family History Problem Relation Age of Onset ??? Migraine Mother ??? ADHD Maternal Uncle Also patient's cousin ??? Bipolar Disorder Maternal Uncle Also patient's cousin ??? OTHER Cousin with chronic constipation Social History Occupational History ??? Not on file. Social History Main Topics ??? Smoking status: Never Smoker ??? Smokeless tobacco: Not on file ??? Alcohol Use: No ??? Drug Use: No ??? Sexually Active: Prescriptions prior to admission Medication Sig Dispense Refill ??? polyethylene glycol 3350 (MIRALAX) powder Take 17 g by mouth once daily. 850 g 0 ??? QUEtiapine (SEROQUEL) 100 MG tablet Take 100 mg by mouth 3 times daily. ??? sertraline (ZOLOFT) 50 MG tablet Take 50 mg by mouth daily. Take 1 1/2 tabs Daily ??? fleet enema (FLEET) 7-19 GM/118ML enema Insert 1 Enema into the rectum once as needed for Constipation for 1 dose. 1 Enema 0 ??? dexmethylphenidate (FOCALIN) 10 MG tablet Take 10 mg by mouth 3 times daily. ??? Magnesium Hydroxide (MILK OF MAGNESIA PO) Take by mouth. Allergies Allergen Reactions ??? Tegretol (Carbamazepine) Rash ??? Stimulant Laxative (Bisacodyl) Rash Review of Systems General: negative for fevers Eyes: negative for blurred vision ENT: negative for sore throat Cardiovascular: negative for chest pain Respiratory: negative for SOB GI: negative for nausea or vomiting, positive for constipations : negative for dysuria, urethral discharge Neurologic: negative for dizziness Endocrine: negative heat or cold intolerance Musculoskeletal: negative for myalgias Skin: negative for rash All other systems reviewed and were negative. Exam Vitals: 01/29/12 2330 01/30/12 0315 01/30/12 0805 01/30/12 1225 BP: 89/54 101/60 90/62 Pulse: 60 68 118 100 Temp: 97.8 ??F 97.8 ??F 97 ??F Resp: Weight: SpO2: General appearance: No acute distress Head: Normocephalic, without trauma Eyes: sclera and conjunctiva clear, EOMI Ears: normal external ears, hearing to voice intact Nose: nares open; no septal deviation is noted Throat: no mucous membrane abnormalities Neck: range of motion is intact, no masses, thyroid not enlarged, no adenopathy Lungs: breath sounds normal and symmetric; no rales or wheezes Heart: regular rhythm, normal S1 and S2, without murmurs, gallops or rubs Abdomen: soft without mass, non-tender, with normal bowel sounds Extremities: no clubbing, cyanosis or edema Circulation: <3 seconds cap refill Joints: ranges of motion normal without inflammation, effusion or deformity Skin: no rashes or other abnormalities are noted Neurologic: CN 2-12 grossly intact, moves all extremities Data Vitals: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 Focalin, Clonidine. Also supposed to be on Miralax, but does not take this SurgicalHx - Tonsillectomy two years ago Immune - UTD FamHx - Maternal uncle ADHD, bipolar. Patient's cousin has same mental illness picture SocialHx - Mother, step-father, patient, little sister (3 years old, healthy) Past Medical History Diagnosis Date ??? Headache started approximately 2 years ago ??? S/P colonoscopy age 6y/o ??? ADHD (attention deficit hyperactivity disorder) ??? Sensory integration disorder ??? Bipolar affective ??? ODD (oppositional defiant disorder) ??? Aggression ??? Learning disability ??? Constipation, chronic No past surgical history on file. History Social History ??? Marital Status: Single Spouse Name: N/A Number of Children: N/A ??? Years of Education: N/A Occupational History ??? Not on file. Social History Main Topics ??? Smoking status: Never Smoker ??? Smokeless tobacco: Not on file ??? Alcohol Use: No ??? Drug Use: No ??? Sexually Active: Other Topics Concern ??? Not on file Social History Narrative ??? No narrative on file Medications Current Outpatient Prescriptions Medication Sig Dispense Refill ??? polyethylene glycol 3350 (MIRALAX) powder Take 17 g by mouth once daily. 850 g 0 ??? QUEtiapine (SEROQUEL) 100 MG tablet Take 100 mg by mouth 3 times daily. ??? sertraline (ZOLOFT) 50 MG tablet Take 50 mg by mouth daily. Take 1 1/2 tabs Daily ??? fleet enema (FLEET) 7-19 GM/118ML enema Insert 1 Enema into the rectum once as needed for Constipation for 1 dose. 1 Enema 0 ??? dexmethylphenidate (FOCALIN) 10 MG tablet Take 10 mg by mouth 3 times daily. ??? Magnesium Hydroxide (MILK OF MAGNESIA PO) Take by mouth. Review of Systems Review of Systems Constitutional: Negative for fever, activity change, appetite change, irritability and fatigue. HENT: Negative for ear pain, congestion, sore throat, rhinorrhea and ear discharge. Eyes: Negative for pain, redness and itching. Respiratory: Negative for cough, shortness of breath and wheezing. Cardiovascular: Negative for chest pain and palpitations. Gastrointestinal: Positive for abdominal pain, constipation and abdominal distention. Negative for nausea and vomiting. Genitourinary: Negative for dysuria, urgency, frequency, hematuria, decreased urine volume and difficulty urinating. Musculoskeletal: Negative for myalgias, joint swelling, arthralgias and gait problem. Skin: Negative for color change, pallor, rash and wound. Neurological: Negative for dizziness, tremors, seizures, syncope, numbness and headaches. BP 101/68 Pulse 88 Temp 97 ??F Resp 20 Wt 26.2 kg (57 lb 12.2 oz) Physical Exam Physical Exam Constitutional: She appears well-developed and well-nourished. She is active. No distress. HENT: Head: Atraumatic. Right Ear: Tympanic membrane normal. Left Ear: Tympanic membrane normal. Nose: Nose normal. Mouth/Throat: Mucous membranes are moist. Dentition is normal. Oropharynx is clear. Eyes: Conjunctivae and EOM are normal. Pupils are equal, round, and reactive to light. Neck: Normal range of motion. Neck supple. No adenopathy. Cardiovascular: Normal rate, regular rhythm, S1 normal and S2 normal. Pulses are palpable. No murmur heard. Pulmonary/Chest: Effort normal and breath sounds normal. She has no wheezes. Abdominal: Full. She exhibits distension and mass. Bowel sounds are decreased. There is tenderness.There is no rebound and no guarding. Patient with stool palpable throughout abdomen (greatest on the left side) with some tenderness to palpation Musculoskeletal: Normal range of motion. She exhibits no edema, no tenderness, no deformity and no signs of injury. Neurological: She is alert. Skin: Skin is warm. Capillary refill takes less than 3 seconds. No petechiae, no purpura and no rash noted. No pallor. Procedures Procedures: Note Lab/SPO2 Interpretation: Note ED Course Medical Decision Making: Patient's obstructive series shows stool diffusely throughout the abdomen. Patient will likely needto be admitted for GoLytely as she has failed outpatient therapy. Will call GI and discuss with them Per Dr. Good, start with 50 mL/hr GoLytely, and increase up to 70 mL/hr overnight if she does well initially. Also do Fleets enema x 1 (performed in ED). Will admit to GI service. Patient states she prefers NG tube over taking GoLytely orally. Clinical Impression Encounter Diagnosis Name Primary? Constipation T. Ernst Guzman MD documented in this encounter Miscellaneous Notes * Miscellaneous Scans - Document, Scanned - 02/15/2012 11:07 AM CDT * Miscellaneous Scans - Document, Scanned - 02/13/2012 7:46 AM CDT * Miscellaneous Scans - Document, Scanned - 02/06/2012 8:11 PM CDT * Miscellaneous Scans - Document, Scanned - 02/05/2012 8:42 AM CDT * Miscellaneous Scans - Document, Scanned - 02/05/2012 8:42 AM CDT * Miscellaneous Scans - Document, Scanned - 02/05/2012 8:42 AM CDT * Miscellaneous Scans - Document, Scanned - 02/05/2012 8:42 AM CDT * Miscellaneous Scans - Document, Scanned - 02/05/2012 8:42 AM CDT documented in this encounter Plan of Treatment Not on file documented as of this encounter Procedures Procedure Name Priority Date/Time Associated Diagnosis Comments IMAGING/RADIOLOGY/XRAY RESULTS ORDER 02/15/2012 11:08 AM CDT LAB RESULTS ORDER 02/06/2012 8:1 1 PM CDT PATHOLOGY/CYTOLOGY REPORT ORDER 02/05/2012 8:42 AM CDT IP CONSULT TO CASE MANAGEMENT Routine 02/01/2012 1:38 PM CDT DISIMPACTION RECTAL 01/31/2012 7 :40 PM CDT CHRONIC CONSTIPATION - PER DR. TRISHA Jacobs DRB PROCTOSIGMOIDOSCOPY RIGID DIAGNOSTIC 01/31/2012 7:40 PM CDT CHRONIC CONSTIPATION - PER DR. TRISHA Jacobs DRB BIOPSY ANORECTAL 01/31/2012 7:40 PM CDT CHRONIC CONSTIPATION - PER DR. TRISHA Jacobs DRB IP CONSULT TO PEDIATRIC SURGERY Routine 01/31/2012 12:04 PM CDT PATHOLOGY TISSUE EXAM (STL) STAT 01/31/2012 11:57 AM CDT FL LOWER GI WATER SOLUBLE Routine 2011 2:10 PM CDT Fecal impaction (HCC) COMPREHENSIVE METABOLIC PANEL AM Draw 01/27/2012 5:01 AM CDT IP CONSULT TO PSYCHOLOGY Routine 012 1:17 PM CDT IP CONSULT TO CHILD LIFE Routine 012 12:56 PM CDT IP CONSULT TO TEST DRILLER Routine 01/25/2012 12:09 PM CDT BASIC METABOLIC PANEL (CALCIUM TOTAL) [place] 01/22/2012 10:30 PM CDT XR ABD OBSTRUCTION SERIES 2VW STAT 01/22/2012 5:57 PM CDT Constipation documented in this encounter Results * IMAGING/RADIOLOGY/XRAY RESULTS ORDER (02/15/2012 11:08 AM CDT) Anatomical Region Laterality Modality Other Narrative Transcriptions Document, Scanned - 02/06/2012 8:11 PM CDT Document, Scanned - 02/15/2012 11:07 AM CDT Scanned Document IMAGING * LAB RESULTS ORDER (02/06/2012 8:11 PM CDT) Narrative Transcriptions Document, Scanned - 02/06/2012 8:11 PM CDT Scanned Document LAB - THERAPEUTIC DR UG MONITORING ORDERABLES * PATHOLOGY/CYTOLOGY REPORT ORDER (02/05/2012 8:42 AM CDT) Narrative Transcriptions Document, Scanned - 02/05/2012 8:42 AM CDT Scanned Document LAB - PATHOLOGY/CYTO LOGY ORDERABLES * IP CONSULT TO CASE MANAGEMENT (02/01/2012 1:38 PM CDT) Narrative Kamini Sharif RN, RN - 02/01/2012 1:38 PM CDT Kamini Sharif RN, RN ? 02/01/2012 ??1:38 PM Referral made to [facility] @ [facility] Homecare [phone] re: home visits. Kamini Sharif RN-Case Management [phone] Procedure Note Kamini Sharif RN, RN - 02/01/2012 1:38 PM CDT Referral made to [facility] @ [facility] Home[facility] [phone] re: home visits. Kamini Sharif RN-Case Management [phone] Swapna Guy MD INPATIENT ANCILLARY CONSULT * IP CONSULT TO PEDIATRIC SURGERY (01/31/2012 12:04 PM CDT) Narrative Geraldo Worley MD - 01/31/2012 12:04 PM CDT Carroll Montilla MD ? 01/30/2012 ??6:02 PM Pediatric General Surgery History and Physical Patient's Primary Care Physician: ??Geo Goyal MD Name: Mae Frances Age: 11 y.o. 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 ?? Has tried Miralax, mag citrate, and enemas in different combinations for years and mother has been dissatisfied with the results. ??Her daughter does not usually complain of pain when she hasn't had a bowel movement in the past. ??Mother notes that she suspects her Mae holds bowel movements. ??LGI performed yesterday in radiology was suspicious for short segment Hirschsprung's. ??Surgery asked to evaluate the need for a rectal biopsy. ?? Past Medical History Diagnosis Date ? ? Headache ?started approximately 2 years ago ? ? S/P colonoscopy ?age 6y/o ? ? ADHD (attention deficit hyperactivity disorder) ? Sensory integration disorder ? Bipolar affective ? ODD (oppositional defiant disorder) ? Aggression ? Learning disability ? Constipation, chronic ?? Past Surgical History Procedure Date ? ? Tonsillectomy 2010 Family History Problem Relation Age of Onset ? ? Migraine Mother ? ADHD Maternal Uncle ?Also patient's cousin ? ? Bipolar Disorder Maternal Uncle ?Also patient's cousin ? ? OTHER ?Cousin with chronic constipation Social History Occupational History ? ? Not on file. Social History Main Topics ? ? Smoking status: Never Smoker ? Smokeless tobacco: Not on file ? ? Alcohol Use: No ? ? Drug Use: No ? ? Sexually Active: ?? Prescriptions prior to admission Medication Sig Dispense Refill ? ? polyethylene glycol 3350 (MIRALAX) powder Take 17 g by mouth once daily. ??850 g ??0 ? ? QUEtiapine (SEROQUEL) 100 MG tablet Take 100 mg by mouth 3 times daily. ? sertraline (ZOLOFT) 50 MG tablet Take 50 mg by mouth daily. Take 1 1/2 tabs Daily ? fleet enema (FLEET) 7-19 GM/118ML enema Insert 1 Enema into the rectum once as needed for Constipation for 1 dose. ??1 Enema ??0 ? ? dexmethylphenidate (FOCALIN) 10 MG tablet Take 10 mg by mouth 3 times daily. ? Magnesium Hydroxide (MILK OF MAGNESIA PO) Take ??by mouth. ? Allergies Allergen Reactions ? ? Tegretol (Carbamazepine) Rash ? ? Stimulant Laxative (Bisacodyl) Rash Review of Systems ??General: negative for fevers ??Eyes: negative for blurred vision ??ENT: negative for sore throat ??Cardiovascular: negative for chest pain ??Respiratory: negative for SOB ??GI: negative for nausea or vomiting, positive for constipations ??: negative for dysuria, urethral discharge ??Neurologic: negative for dizziness ??Endocrine: negative heat or cold intolerance ??Musculoskeletal: negative for myalgias ??Skin: negative for rash ??All other systems reviewed and were negative. Exam Vitals: 01/29/12 2330 01/30/12 0315 01/30/12 0805 01/30/12 1225 BP: 89/54 101/60 90/62 ?? Pulse: 60 68 118 100 Temp: 97.8 ??F 97.8 ??F 97 ??F ?? Resp: 14 07 24 14 Weight: ? SpO2: ? General appearance: No acute distress Head: Normocephalic, without trauma Eyes: sclera and conjunctiva clear, EOMI Ears: normal external ears, hearing to voice intact Nose: nares open; no septal deviation is noted Throat: no mucous membrane abnormalities Neck: range of motion is intact, no masses, thyroid not enlarged, no adenopathy Lungs: breath sounds normal and symmetric; no rales or wheezes Heart: regular rhythm, normal S1 and S2, without murmurs, gallops or rubs Abdomen: soft without mass, non-tender, with normal bowel sounds Extremities: no clubbing, cyanosis or edema Circulation: <3 seconds cap refill Joints: ranges of motion normal without inflammation, effusion or deformity Skin: no rashes or other abnormalities are noted Neurologic: CN 2-12 grossly intact, moves all extremities Data Vitals: 01/30/12 0315 01/30/12 0805 01/30/12 1225 01/30/12 1540 BP: 101/60 90/62 ??90/64 Pulse: 68 118 100 116 Temp: 97.8 ??F 97 ??F ??97 ??F Resp: 12 24 Weight: ? SpO2: ? Intake/Output Summary (Last 24 hours) at 01/30/12 1758 Last data filed at 01/30/12 1225 Gross per 24 hour Intake ?600 ml Output ?0 ml Net ?600 ml Component Name 01/27/12 0501 01/22/12 2230 09/29/09 1250 SODIUM 141 141 136* POTASSIUM 3.5 3.7 4.2 CHLORIDE 102 106 97* CO2 26 19* 28.6* BUN 4.5* 22.3* 10.5 CREATININE 0.39* 0.40* 0.38 GLUCOSE -- -- 90 CALCIUM 9.13 9.08* -- No results found for this basename: WBC,RBC,HGB,HCT,MCV,MCH,MCHC,RDW,PLTCOUNT,SEGPCT,BANDPCT,LYMPHPCT, ATYPLYMPHPCT,MONOCYTPCT,EOSINPCT,BASOPHILPCT,METAPCT,MYELOCYTPCT,P ROMELOPCT,BLASTPCT,PLASMAPCT,NRBC,GRANPCT,MONOCYTPCT,EOSINPCT,BASO PHILPCT in the last [id number] hours Assessment and Plan 11 yo female with chronic constipation and suspicion for Hirschsprung's on LGI -Discussed with mother the utility of a rectal biopsy in diagnosing possible Hirschsprung's -Mother understands the risks and benefits and wishes to proceed -Please make NPO with IVF at midnight -Consent obtained -Will proceed to OR tomorrow afternoon Carroll Montilla MD 01/30/2012 6:02 PM Swapna Guy MD INPATIENT CONSULT OR DERABLES * GROSS + MICRO EXAM (STL) (01/31/2012 11:57 AM CDT) Case Report Surgical Pathology Report ? Case: [id number] ? Authorizing Provider: ??Patric Good MD ?Ordering Provider: ?? Geraldo Worley MD ? Ordering Location: ? [facility] ?Collected: ? 01/31/2012 11:57 AM ? Pathologist: ? Berenice Wilson MD ? Received: ?01/31/2012 12:56 PM ?Signed Out: ?02/01/2012 ??5:08 PM (Final) ? Specimen: ?Rectum ? 02/01/2012 5:08 PM [facility] Final Diagnosis RECTUM, SUCTION BIOPSY: - GANGLION CELLS PRESENT (SEE COMMENT). COMMENT: While the size of this biopsy is adequate in the usual age group (neonates) in which suction biopsy is performed, it is suboptimal for a 11 year old patient in that it contained only mucosa, muscularis mucosa and a thin superficial portion of the submucosa. 02/01/2012 5:08 PM [facility] Clinical History The patient is a 11-year-old girl, with chronic constipation, who underwent fecal disimpaction, proctosigmoidoscopy and rectal biopsy to rule-out Hirschsprung's disease. 02/01/2012 5:08 PM [facility] Gross Description The specimen is received fresh in a single container, labeled with the patient's name, Mae Frances and rectal biopsy and consists of a flap of rectal tissue, measuring 0.9 cm in length x 0.6 cm in width, x 0.1 cm in thickness. The mucosal aspect is yellow-quintero and velvety. The opposite aspect is glistening, pink-quintero, with some adherent coagula. The specimen is bisected. Half is submitted for routine processing as A1, and the other half is frozen for acetylcholinesterase stain. (MYKE/roberto) 02/01/2012 5:08 PM [facility] Microscopic Description 10 H&E. Examination of 38 levels of the rectal suction biopsy revealed two ganglion cells; there are no hypertrophic nerve trunks. 02/01/2012 5:08 PM CDT [facility] Disclaimer The performance characteristics of all immunohistochemical and indirect ??immunofluorescence stains (if any) cited in this report were determined by the Histopathology Laboratory of [facility] (immunohistochemistry) or the Histology Laboratory of [facility] (indirect immunofluorescence) in compliance with CLIA `88 regulations. ??Some of these tests rely on the use of analyte-specific reagents and are subject to specific labeling requirements by the FDA. ??Such tests were developed by the ??[facility] Laboratory of [facility] or the Histology Laboratory of [facility] and have not been cleared or approved by the FDA. ??The FDA has determined that such clearance or approval is not necessary. ??These tests are used for clinical purposes and should not be regarded as investigational or for research. ? This case has been personally reviewed and interpreted by the attending (teaching) pathologist. 02/01/2012 5:08 PM CDT [facility] Miscellaneous samples (specimen) ENTIRE RECTUM / Unknown 01/31/2012 11:57 AM CDT 01/31/2012 12:56 PM CDT Patric Good MD LAB - PATHOLOGY/CYTO LOGY ORDERABLES Performing Organization Address City/State/[facility] Phone Number [facility] [address] [place] [address] * FL LOWER GI WATER SOLUBLE (01/29/2012 2:10 PM CDT) Anatomical Region Laterality Modality Abdomen Radio Fluoroscop y 01/29/2012 3:04 PM CDT Impressions 01/29/2012 3:04 PM CDT The above findings are suspicious for short segment Hirschsprung's disease. Narrative 01/29/2012 3:04 PM CDT Water-soluble enema performed 01/29/2012. History: Constipation. The preliminary radiographs demonstrate the presence of multiple air-filled distended loops of colon throughout the abdomen and pelvis. The visualized bony structures, including the sacrum, are intact. No presacral mass is seen. Under fluoroscopic observation a gentle water-soluble contrast enema was performed. The rectum and distal sigmoid colon are of small caliber than the remaining portions of the colon. Stool was encountered in the proximal sigmoid colon while no stool was seen in the distal sigmoid colon or the rectum. During the course of the examination, irregular contractions were noted in the rectum. The remainder of the colon is markedly distended and incredibly redundant. Two hepatic fractures are present. No additional transition zones with respect to bowel caliber are appreciated. Postevacuation films demonstrate reflux of contrast material into the distal ileum. Only a minimal amount of contrast was evacuated by the patient. The appendix was not seen. Procedure Note Elisa Coe MD - 01/29/2012 Water-soluble enema performed 01/29/2012. History: Constipation. The preliminary radiographs demonstrate the presence of multiple air-filled distended loops of colon throughout the abdomen and pelvis. The visualized bony structures, including the sacrum, are intact. No presacral mass is seen. Under fluoroscopic observation a gentle water-soluble contrast enema was performed. The rectum and distal sigmoid colon are of small caliber than the remaining portions of the colon. Stool was encountered in the proximal sigmoid colon while no stool was seen in the distal sigmoid colon or the rectum. During the course of the examination, irregular contractions were noted in the rectum. The remainder of the colon is markedly distended and incredibly redundant. Two hepatic fractures are present. No additional transition zones with respect to bowel caliber are appreciated. Postevacuation films demonstrate reflux of contrast material into the distal ileum. Only a minimal amount of contrast was evacuated by the patient. The appendix was not seen. IMPRESSION The above findings are suspicious for short segment Hirschsprung's disease. Swapna Guy MD FLUOROSCOPY ORDERABL ES * (ABNORMAL) COMPREHENSIVE METABOLIC PANEL (01/27/2012 5:01 AM CDT) Pathologist [facility] Glucose 92 70 - 105 mg/dL 01/27/2012 6:15 AM T [facility] Sodium 141 136 - 145 mmol/L 01/27/2012 6:15 AM T [facility] Potassium 3.5 3.5 - 5.1 mmol/L 01/27/2012 6:15 AM [facility] Chloride 102 98 - 107 mmol/L 01/27/2012 6:15 AM [facility] CO2 26 20 - 28 mmol/L 01/27/2012 6:15 AM [facility] Calcium 9.13 9.12 - 10.48 mg/dL 01/27/2012 6:15 AM [facility] Anion Gap 13 5 - 20 mmol/L 01/27/2012 6:15 AM [facility] BUN 4.5(L) 6.7 - 19.6 mg/dL 01/27/2012 6:15 AM [facility] Creatinine 0.39(L) 0.53 - 0.80 mg/dL 01/27/2012 6:15 AM [facility] eGFR by MDRD ml/min/1. 73m2 01/27/2012 6:15 AM [facility] Comment:eGFR calculations ar e not performed for children under 18 years old. eGFR by MDRD ml/min/1. 73m2 01/27/2012 6:15 AM [facility] Comment:eGFR calculations ar e not performed for children under 18 years old. Alkaline Phosphatase 139 100 - 320 U/L 01/27/2012 6:15 AM [facility] ALT 19 8 - 65 U/L 01/27/2012 6:15 AM [facility] AST 35 3 - 35 U/L 01/27/2012 6:15 AM [facility] Protein Total 5.5(L) 6.2 - 9.1 gm/dL 01/27/2012 6:15 AM [facility] Albumin 3.2(L) 3.6 - 4.9 gm/dL 01/27/2012 6:15 AM [facility] Bilirubin Total 0.5 0.3 - 1.2 mg/dL 01/27/2012 6:15 AM [facility] Blood specimen (specimen) BLOOD SPECIMEN / Unknown 01/27/2012 5:01 AM CDT 01/27/2012 5:27 AM T Helena Phoenix MD LAB - CHEMISTRY ERIN AGUILAR [facility] Organization Address City/State/ZIP Co de Phone Number [facility] [address] [place] [address] * IP CONSULT TO PSYCHOLOGY (01/25/2012 1:17 PM CDT) Narrative Sakina Lopez, PhD - 01/25/2012 1:17 PM CDT Sakina Lopze, PHD ? 01/25/2012 ??1:17 PM Inpatient Psychology Consultation Name: ??Mae Frances Age: ??11 ??y.o. 3 ??m.o. : ??2000 Medical Record: [id number] I attempted to interview pt; however, she refused to waken despite repeated efforts. ??Spoke with Tory Pineda and Mr. Guy regarding concerns about social factors. ??No family member was available for interview. ??According to the medical record Mae has been hospitalized several times for constipation and impaction. ??Previous notes indicate that Mother has not followed recommendations for Miralax administration. ??Mae has been followed by neurology for headaches and past parental report indicates Mae was retained at school (reportedly for aggression) and has learning disabilities. ??Mae has also had at least one psychiatric hospitalization and is on numerous psych medications. ?? Given the chronicity of feeding issues, constipation, and repeated hospitalizations, I would recommend a level of care that would permit these problems to be addressed with sufficient intensity to attempt to break the cycle. ??Kathy Booker should be considered for follow-up care at discharge. ??Family preservation services through [place] [facility] may also be able to provide in-home therapy and parent training necessary to change chronic maladaptive patterns. ?? Dr. Bree Hermosillo is available for consultation this afternoon, pager: [phone] Sakina Lopez, PhD Clinical Psychologist [place] License [id number] Procedure Note Sakina Lopez, PhD - 01/25/2012 12:53 PM CDT Inpatient Psychology Consultation Name: Mae Frances Age: 11 y.o. 3 m.o. : 2000 Medical Record: [id number] I attempted to interview pt; however, she refused to waken despiterepeated efforts. Spoke with Tory Pineda and Mr. Guy regardingconcerns about social factors. No family member was available forinterview. According to the medical record Mae has beenhospitalized several times for constipation and impaction. Previous notesindicate that Mother has not followed recommendations for Miralaxadministration. Mae has been followed by neurology for headachesand past parental report indicates Mae was retained at school(reportedly for aggression) and has learning disabilities. Mae gaona had at least one psychiatric hospitalization and is on numerous psychmedications. Given the chronicity of feeding issues, constipation, and repeatedhospitalizations, I would recommend a level of care that would permitthese problems to be addressed with sufficient intensity to attempt tobreak the cycle. [facility] may also be able to provide in-home therapyand parent training necessary to change chronic maladaptive patterns. Dr. Bree Hermosillo is available for consultation this afternoon, pager:[phone] Sakina Lopez, PhD Clinical Psychologist [place] License [phone] Swapna Guy MD INPATIENT CONSULT OR DERABLES * IP CONSULT TO CHILD LIFE (01/25/2012 12:56 PM CDT) Ginger Kumar CCLS - 01/25/2012 12:56 PM CDT DHRUV Lanier ? 01/25/2012 12:[address] uGy informed Child [facility] about patient's need for behavior modification. DATY created incentive chart and explained chart and consequences to patient. Patient acknowledged she understood information. Chart is located in patient's hard chart and in patient's room. [facility] Mae Montesinos Yvrose [id number] Objective 1. ??Objective Information - Introduction: Patient is familiar to Child Life Services;Comfort measures offered 2. ??Diversional/Play Activities: Bedside activities provided;Diversional activities provided General Information Assessment Feelings: Expresses normal fear and anxiety.;Expresses anxiety related to pain. Assessment: Patient adjusting well to hospitalization at this time. Plan Child Life plan of care: Patient will be a primary followed by this Spares Scheduler.;Provide developmentally appropriate therapeutic activities.;Provide relaxation, distraction and soothing techniques.;Continue to assess patient needs for changes.;Child Life Services will conduct individual sessions with patient.;Encourage patient to attend playroom/teen activity.;Encourage peer interactions (if age-appropriate).;Provide opportunity for expression of emotions. DHRUV Lanier 01/25/2012 12:53 PM Procedure Note Ginger WilkersonDHRUV - 01/25/2012 12:[address] Guy informed DATY about patient's need for behaviormodification. DATY created incentive chart and explained chart andconsequences to patient. Patient acknowledged she understood information.Chart is located in patient's hard chart and in patient's room. [facility] ASSESSMENT Mae Montesinos Torstenекатерина [id number] Objective 1. Objective Information - Introduction: Patient is familiar to [facility] Services;Comfort measures offered 2. Diversional/Play Activities: Bedside activities provided;Diversionalactivities provided General Information Assessment Feelings: Expresses normal fear and anxiety.;Expresses anxiety related topain. Assessment: Patient adjusting well to hospitalization at this time. Plan Child Life plan of care: [facility] will be a primary [facility].;Provide developmentally appropriate therapeuticactivities.;Provide relaxation, distraction and soothingtechniques.;Continue to assess patient needs for changes.;Child LifeServices will conduct individual sessions with patient.;Encourage patientto attend playroom/teen activity.;Encourage peer interactions (ifage-appropriate).;Provide opportunity for expression of emotions. Ginger DHRUV Wilkerson 01/25/2012 12:53 PM Swapna Guy MD INPATIENT CONSULT OR DERABLES * IP CONSULT TO TEST DRILLER (01/25/2012 12:09 PM CDT) Narrative Tory Pineda LCSW - 01/25/2012 12:09 PM CDT Tory Pineda LCSW ? 01/25/2012 12:09 PM New consult received on pt today, worker in contact with Sakina Funes, Psychology, with Dr Swapna Guy, with 3 So RN and telephoned pt's mother Mother coming in later today, will meet with her about care and treatment of pt with chronic constipation. ??Mother state she is in the process of moving from [place] to [place], [place] Tory Pineda LCSW [phone] Procedure Note Tory Pineda LCSW - 01/25/2012 12:06 PM CDT New consult received on pt today, worker in contact with Sakina Funes,Psychology, with Dr Swapna Guy, with 3 So RN and telephoned pt'smother Mother coming in later today, will meet with her about care and treatmentof pt with chronic constipation. Mother state she is in the process ofmoving from [place] to [place], [place] Tory Pineda, [facility] [phone] Swapna Guy MD INPATIENT ANCILLARY CONSULT * (ABNORMAL) BASIC METABOLIC PANEL (CALCIUM TOTAL) (01/22/2012 10:30 PM CDT) Sodium 141 136 - 145 mmol/L 01/22/2012 11:01 PM [facility] Potassium 3.7 3.5 - 5.1 mmol/L 01/22/2012 11:01 PM [facility] Chloride 106 98 - 107 mmol/L 01/22/2012 11:01 PM [facility] CO2 19(L) 20 - 28 mmol/L 01/22/2012 11:01 PM [facility] Calcium 9.08(L) 9.12 - 10.48 mg/dL 01/22/2012 11:01 PM [facility] Anion Gap 16 5 - 20 mmol/L 01/22/2012 11:01 PM [facility] BUN 22.3(H) 6.7 - 19.6 mg/dL 01/22/2012 11:01 PM [facility] Creatinine 0.40(L) 0.53 - 0.80 mg/dL 01/22/2012 11:01 PM [facility] eGFR by MDRD ml/min/1. 73m2 01/22/2012 11:01 PM [facility] Comment:eGFR calculations ar e not performed for children under 18 years old. eGFR by MDRD ml/min/1. 73m2 01/22/2012 11:01 PM [facility] Comment:eGFR calculations ar e not performed for children under 18 years old. Glucose 125(H) 70 - 105 mg/dL 01/22/2012 11:01 PM [facility] Blood specimen (specimen) BLOOD SPECIMEN / Unknown 01/22/2012 10:30 PM CDT 01/22/2012 10:36 PM CDT Swapna Guy MD LAB - CHEMISTRY ERIN AGUILAR [facility] Organization Address City/State/ZIP Co de Phone Number [facility] [address] [place] [address] * XR ABD OBSTR SERIES (01/22/2012 5:57 PM CDT) Anatomical Region Laterality Modality Abdomen Radiographic Melina ging 01/23/2012 7:34 AM CDT Impressions 01/23/2012 10:06 AM CDT Nonobstructive bowel gas pattern. Increased retained stool throughout colon. D: Alex Meraz MD Narrative 01/23/2012 10:06 AM CDT Abdominal obstructive series AP upright and supine view. Findings: Comparison is made to exam dated 12/21/2011. There is extensive amount of stool throughout the colon which is slightly increased since the prior examination. The bowel gas pattern otherwise is normal without evidence of obstruction. No air-fluid levels are present. No free air. The lung bases are clear. No intra-abdominal soft tissue calcifications are present. Procedure Note Deborahmevli Rian Emma - 01/23/2012 Abdominal obstructive series AP upright and supine view. Findings: Comparison is made to exam dated 12/21/2011. There is extensive amount of stool throughout the colon which is slightly increased since the prior examination. The bowel gas pattern otherwise is normal without evidence of obstruction. No air-fluid levels are present. No free air. The lung bases are clear. No intra-abdominal soft tissue calcifications are present. IMPRESSION Nonobstructive bowel gas pattern. Increased retained stool throughout colon. D: Alex Meraz MD Crystal Guzman MD DIAGNOSTIC IMAGING O RDERABLES documented in this encounter Visit Diagnoses Diagnosis Psychic factors associated with diseases classified elsewhere Constipation Unspecified constipation Constipation Behavior disorder Unspecified disturbance of conduct Fecal impaction(560.32) (HCC) Fecal impaction ADHD (attention deficit hyperactivity disorder) Attention deficit disorder with hyperactivity Bipolar 1 disorder (HCC) Bipolar I disorder, most recent episode (or current) unspecified Counseling regarding goals of care Other specified counseling Poor weight gain in child Failure to thrive Learning disability Other specific developmental learning difficulties ODD (oppositional defiant disorder) Oppositional defiant disorder of childhood or adolescence Weight loss Loss of weight Unspecified constipation Fecal impaction(560.32) ([facility]) Fecal impaction ADHD (attention deficit hyperactivity disorder) Attention deficit disorder with hyperactivity Bipolar 1 disorder ([facility]) Bipolar I disorder, most recent episode (or current) unspecified Behavior disorder Unspecified disturbance of conduct Counseling regarding goals of care Other specified counseling documented in this encounter Administered Medications Inactive Administered Medications - up to 3 most recent administrations Medication Order MAR Action Action Date Dose Rate Site 0.9% NaCl injection 2 mL 2 mL (0.0787 mL/kg), Intracatheter, EVERY 4 HOURS, First dose on Sat01/28/12 at 1630, Until Discontinued, PIV flush Use positive pressure technique for last 0.5 ml. $ Given 02/01/2012 8:58 AM CDT 2 mL $ Given 02/01/2012 1:43 AM CDT 2 mL $ Given 01/31/2012 3:51 PM CDT 2 mL amoxicillin-clavulanate (AUGMENTIN) tablet 250 mg 250 mg (9.84 mg/kg), Oral, ONCE, 1 dose, On Sat02/01/12 at 1130, Administer with food to decrease GI side effects. $ Given 02/01/2012 1:36 PM CDT 250 mg clindamycin (CLEOCIN) 225 mg 225 mg, Oral, ONCE, 1 dose, On Sat02/01/12 at 1200 $ Given 02/01/2012 1:36 PM CDT 225 mg clindamycin (CLEOCIN) pediatric IV 254.04 mg 254.04 mg (10 mg/kg ? 25.4 kg), at 42.34 mL/hr, Intravenous, EVERY 8 HOURS, 3 doses, First dose on Sat01/31/12 at 1330, Last dose on Sat02/01/12 at 0600, Diluted in D5W, Post-op $ Given 02/01/2012 3:12 AM CDT 254.04 mg 42.34 mL/hr $ Given 01/31/2012 6:54 PM CDT 254.04 mg 42.34 mL/hr cloNIDine (CATAPRES) tablet 0.3 mg 0.3 mg (0.0118 mg/kg), Oral, AT BEDTIME, First dose (after last modification) on Sat01/22/12 at 2345, Until Discontinued $ Given 01/31/2012 6:54 PM CDT 0.3 mg $ Given 01/30/2012 7:07 PM CDT 0.3 mg $ Given 01/29/2012 6:51 PM CDT 0.3 mg dextrose 5 % and 0.45% NaCl infusion at 30 mL/hr, Intravenous, CONTINUOUS, Starting on Sat01/22/12 at 2115, Until Sat01/28/12 at 0000 $ New Bag/Syringe 01/27/2012 6:01 PM CDT 30 mL/hr $ New Bag/Syringe 01/26/2012 9:21 AM CDT 30 mL/ hr $ New Bag/Syringe 01/25/2012 6:05 AM CDT 55 mL/ hr dextrose 5 % and 0.45% NaCl infusion at 55 mL/hr, Intravenous, CONTINUOUS, Starting on Sat01/28/12 at 0000, Until Sat01/28/12 at 1145 Rate Change 01/28/2012 12:07 AM CDT 55 mL/hr dextrose 5 % and 0.45% NaCl infusion at 55 mL/hr, Intravenous, CONTINUOUS, Starting on Sat01/29/12 at 0000, Until Sat01/29/12 at 1857 Rate Change 01/28/2012 11:38 PM CDT 55 mL/hr dextrose 5 % and 0.45% NaCl infusion at 20 mL/hr, Intravenous, CONTINUOUS, Starting on Sat01/28/12 at 1600, Until Sat01/29/12 at 0929 $ New Bag/Syringe 01/28/2012 4:36 PM CDT 20 mL/hr dextrose 5% and 0.45% NaCl with KCl 20 mEq infusion at 65 mL/hr, Intravenous, CONTINUOUS, Starting on Sat01/31/12 at 0000, Until Sat02/01/12 at 0947 $ New Bag/Syringe 01/30/2012 11:53 PM CDT 1,000 mL 65 mL/hr fleet enema (FLEET) enema 1 Enema 1 enema, Rectal, ONCE PRN, Constipation, 1 dose, Starting on Sat01/25/12 at 0753, Until Sat01/25/12 at 1135 $ Given 01/25/2012 11:35 AM CDT 1 enema fleet pediatric (FLEET PEDIATRIC) enema 1 Enema 1 enema, Rectal, ONCE, 1 dose, On Sat01/22/12 at 1915 $ Given 01/22/2012 6:59 PM CDT 1 enema iothalamate meglumine (CYSTO CONRAY II) 17.2 % solution Urethral, CONTRAST ONCE, Starting on Sat01/29/12 at 0900, Until Sat01/31/12 at 0859 $ Given 01/29/2012 9:02 AM CDT 2,500 mL Rectum isolyte-S pH 7.4 infusion 65 mL/hr, Intravenous, POST-OP CONTINUOUS, Starting on Sat01/31/12 at 1315, Until Sat01/31/12 at 1340, Continue Fluids at current rates, until current bag is finished. Then Switch to fluids as ordered for floor., PACU Current Rate 01/31/2012 1:00 PM CDT 65 mL/hr 65 mL/hr piperacillin-tazobacta m (ZOSYN) 60 mg/ml pediatric IV 1,270.2 mg 1,270.2 mg (50 mg/kg ? 25.4 kg), at 42.34 mL/hr, Intravenous, EVERY 8 HOURS, 3 doses, First dose (after last modification) on Sat01/31/12 at 1300, Last dose on Sat02/01/12 at 0600, Diluted in D5W, Post-op $ Given 02/01/2012 1:43 AM CDT 1,270.2 mg 42.34 mL/hr $ Given 01/31/2012 6:18 PM CDT 1,270.2 mg 42.34 mL/hr polyethylene glycol (GoLYTELY;NuLYTELY) 240 G solution 4,000 mL 4,000 mL (153 mL/kg = 4 L), Oral, ONCE, 1 dose, On Sat01/22/12 at 2200, Please run continuous @ 50ml/hr, increase by 5ml/hr as tolerated to goal of 70ml/hr $ Given 01/22/2012 10:59 PM CDT 4,000 mL polyethylene glycol (GoLYTELY;NuLYTELY) 240 G solution 50 mL 50 mL (1.97 mL/kg), Per NG/OG Tube, CONTINUOUS, Starting on Sat01/24/12 at 1445, Until Sat01/25/12 at 1254, Rate: 70 ml/hr. Rate Change 01/24/2012 2:45 PM CDT 50 mL mL/hr polyethylene glycol (GoLYTELY;NuLYTELY) 240 G solution 65 mL 65 mL (2.56 mL/kg), Per NG/OG Tube, CONTINUOUS, Starting on 01/26/12 at 0915, Until 01/28/12 at 0000, Rate: 65 ml/hr. Rate Change 01/26/2012 9:15 AM CDT 65 mL mL/hr polyethylene glycol (GoLYTELY;NuLYTELY) 240 G solution 70 mL 70 mL (2.76 mL/kg), Per NG/OG Tube, CONTINUOUS, Starting on Sat01/24/12 at 0815, Until Sat01/24/12 at 1439, Rate: 70 ml/hr. Current Rate 01/24/2012 8:35 AM CDT 70 mL mL/hr QUEtiapine (SEROquel) tablet 100 mg 100 mg (3.94 mg/kg), Oral, 2 TIMES DAILY, First dose on Sat01/22/12 at 2345, Until Discontinued $ Given 02/01/2012 1:37 PM CDT 100 mg $ Given 01/31/2012 6:54 PM CDT 100 mg $ Given 01/31/2012 1:52 PM CDT 100 mg QUEtiapine (SEROquel) tablet 200 mg 200 mg (7.87 mg/kg), Oral, EVERY MORNING, First dose on Sat01/23/12 at 0700, Until Discontinued $ Given 02/01/2012 7:10 AM CDT 200 mg $ Given 01/31/2012 6:37 AM CDT 200 mg $ Given 01/30/2012 7:01 AM CDT 200 mg sertraline (ZOLOFT) tablet 100 mg 100 mg (3.94 mg/kg), Oral, 2 TIMES DAILY, First dose on Sat01/22/12 at 2200, Until Discontinued, Please give in the morning and at 1900 Avoid concurrent administration with grapefruit juice $ Given 02/01/2012 7:10 AM CDT 100 mg $ Given 01/31/2012 6:54 PM CDT 100 mg $ Given 01/31/2012 6:36 AM CDT 100 mg documented in this encounter Active and Recently Administered Medications Times are shown in CDT. Scheduled Medication Order 01/30/2012 01/31/2012 02/01/2012 0.9% NaCl injection 2 mL (CANCELED) 2 mL (0.0787 mL/kg), Intracatheter, EVERY 4 HOURS, First dose on Sat01/28/12 at 1630, Until Discontinued, PIV flush Use positive pressure technique for last 0.5 ml. 0031 (Not Administered - Provider: Barry Del Rio RN - Reason: Loss of Access)0430 (Not Administered - Provider: Barry Del Rio RN - Reason: Loss of Access)0830 (Not Administered - Provider: Corine Monet RN - Reason: Loss of Access)1230 (Not Administered - Provider: Corine Monet RN - Reason: Loss of Access)1630 (Not Administered - Provider: Lisa Lerma RN - Reason: Loss of Access)2030 (Not Administered - Provider: Lisa Lerma RN - Reason: Loss of Access) 0031 (Not Administered - Provider: Barry Del Rio RN - Reason: IV Currently Infusing)0430 (Not Administered - Provider: Barry Del Rio RN - Reason: IV Currently Infusing)0830 (Not Administered - Provider: Corine Monet RN - Reason: IV Currently Infusing)1230 (Not Administered - Provider: Corine Monet RN - Reason: IV Currently Infusing)1551 ($ Given - Provider: Madonna Charles RN)2030 (Not Administered - Provider: Latonya Arias RN - Reason: Refused-Patient) 0143 ($ Given - Provider: Latonya Arias RN)0430 (Not Administered - Provider: Latonya Arias RN - Reason: See Comments - Comment: not required)0858 ($ Given - Provider: Amy Yan (Sn)) amoxicillin-clavulanate (AUGMENTIN) tablet 250 mg (COMPLETED) 250 mg (9.84 mg/kg), Oral, ONCE, 1 dose, On Sat02/01/12 at 1130, Administer with food to decrease GI side effects. 1336 ($ Given - Provider: Amy Yan (Sn)) clindamycin (CLEOCIN) 225 mg (COMPLETED) 225 mg, Oral, ONCE, 1 dose, On Sat02/01/12 at 1200 1336 ($ Given - Provider: Amy Yan (Sn)) clindamycin (CLEOCIN) pediatric IV 254.04 mg (CANCELED) 254.04 mg (10 mg/kg ? 25.4 kg), at 42.34 mL/hr, Intravenous, EVERY 8 HOURS, 3 doses, First dose on Sat01/31/12 at 1330, Last dose on Sat02/01/12 at 0600, Diluted in D5W, Post-op 1854 ($ Given - Provider: Madonna Charles RN)1924 (Rx Stopped - Provider: Latonya Arias RN) 0312 ($ Given - Provider: Latonya Arias RN)0342 (Rx Stopped - Provider: Latonya Arias RN) cloNIDine (CATAPRES) tablet 0.3 mg 0.3 mg (0.0118 mg/kg), Oral, AT BEDTIME, First dose (after last modification) on Sat01/22/12 at 2345, Until Discontinued 1907 ($ Given - Provider: Lisa Lerma RN) 1854 ($ Given - Provider: Madonna Charles RN) piperacillin-tazobactam (ZOSYN) 60 mg/ml pediatric IV 1,270.2 mg () 1,270.2 mg (50 mg/kg ? 25.4 kg), at 42.34 mL/hr, Intravenous, EVERY 8 HOURS, 3 doses, First dose (after last modification) on Sat01/31/12 at 1300, Last dose on Sat02/01/12 at 0600, Diluted in D5W, Post-op 1818 ($ Given - Provider: Zen Doan RN)1848 (Rx Stopped - Provider: Madonna Charles RN) 0143 ($ Given - Provider: Latonya Arias RN)0213 (Rx Stopped - Provider: Latonya Arias RN)0857 (Not Administered - Provider: Amy Yan (Sn) - Reason: Loss of Access)0927 (Due: Rx Stopped - Provider: Amy Yan (Sn)) QUEtiapine (SEROquel) tablet 100 mg(Linked Group 1) 100 mg (3.94 mg/kg), Oral, 2 TIMES DAILY, First dose on Sat01/22/12 at 2345, Until Discontinued 1310 ($ Given - Provider: Corine Monet, RN)1907 ($ Given - Provider: Lisa Lerma, RN) 1352 ($ Given - Provider: Corine Monet, RN)1854 ($ Given - Provider: Madonna Charles, SHANELL) 1337 ($ Given - Provider: Amy Yan (Sn)) QUEtiapine (SEROquel) tablet 200 mg(Linked Group 1) 200 mg (7.87 mg/kg), Oral, EVERY MORNING, First dose on Sat01/23/12 at 0700, Until Discontinued 0701 ($ Given - Provider: Barry Del Rio RN) 0637 ($ Given - Provider: Barry Del Rio RN) 0710 ($ Given - Provider: Latonya Arias, SHANELL) sertraline (ZOLOFT) tablet 100 mg 100 mg (3.94 mg/kg), Oral, 2 TIMES DAILY, First dose on Sat01/22/12 at 2200, Until Discontinued, Please give in the morning and at 1900 Avoid concurrent administration with grapefruit juice 0701 ($ Given - Provider: Barry Del Rio RN)1907 ($ Given - Provider: Lisa Lerma RN) 0636 ($ Given - Provider: Barry Del Rio RN)1854 ($ Given - Provider: Madonna Charles, SHANELL) 0710 ($ Given - Provider: Latonya Arias RN) Continuous Medication Order 01/30/2012 01/31/2012 02/01/2012 dextrose 5% and 0.45% NaCl with KCl 20 mEq infusion (CANCELED) at 65 mL/hr, Intravenous, CONTINUOUS, Starting on Sat01/31/12 at 0000, Until Sat02/01/12 at 0947 2353 ($ New Bag/Syringe - Provider: Barry Del Rio RN) isolyte-S pH 7.4 infusion (CANCELED) 65 mL/hr, Intravenous, POST-OP CONTINUOUS, Starting on Sat01/31/12 at 1315, Until Sat01/31/12 at 1340, Continue Fluids at current rates, until current bag is finished. Then Switch to fluids as ordered for floor., PACU 1300 (Current Rate - Provider: Mary Jane Bravo RN - Comment: isolyte scan did not work) PRN Medication Order 01/30/2012 01/31/2012 02/01/2012 0.9% nacl irrigation bag (CANCELED) PRN, Starting on Gladis 01/31/12 at 1134, Until Gladis 01/31/12 at 1236, Intra-op 1134 ($ Given - Provider: Jose Garza MD) magnesium sulfate bolus IVPB in sterile IV fluid (CANCELED) PRN, Starting on Gladis 01/31/12 at 1200, Until Gladis 01/31/12 at 1236, Intra-op 1200 ($ Given - Provider: Jose Garza MD - Comment: Mag sulfate 500mg in 500ml normal saline. NOT GIVEN IV. Applied topically to 4x4 gauze and packed in rectum) Linked Groups Order Group 1: QUEtiapine (SEROquel) tablet 200 mgJump to med 200 mg (7.87 mg/kg), Oral, EVERY MORNING, First dose on Sat01/23/12 at 0700, Until Discontinued And QUEtiapine (SEROquel) tablet 100 mgJump to med 100 mg (3.94 mg/kg), Oral, 2 TIMES DAILY, First dose on Sat01/22/12 at 2345, Until Discontinued documented in this encounter Care Teams Dialysis Clinical Manager Relationship Specialty Start Date End Date Geo Goyal MD [address] [place] [address] PCP - General 08/24/09 01/15/22 documented as of this encounter
--- OUTSIDE RECORDS SUMMARY | 2024-08-02 02:36 | XMS_ITS | Encounter Summary ---
Author Organization [facility] Address [address] [place] [address] Care Team Providers Care Receptionist Clerk Name Role Phone Geo Goyal MD Primary Care Provider [phone] Reason for Visit * Reason Comments Constipation Patient has issues w ith constipation. Patient playful. Mother states she is still eating and drinking normally. Denies abdominal pain. Mother not sure when her last was BM. Encounter Details Date Type Department Care Team (Late st Contact Info) Description 12/21/2011 12:35 PM CDT - 12/21/2011 5:06 PM CDT Emergency ER at [address] [address] Christo Askew, ANALYTICAL SCIENCES DIRECTOR-[address] [address] Constipation Discharge Disposition: Home or Self Care Social History Tobacco Use Types Packs/Day Years Used Date Smoking Tobacco: Never Alcohol Use Standard Drinks/Week Comments No 0 (1 standard drink = 0.6 oz pur e alcohol) Sex and Gender Information Value Date Recorded Sex Assigned at Not on file Gender Identity Not on file Sexual Orientation Not on file documented as of this encounter Last Filed Vital Signs Vital Sign Reading Time Taken Comments Blood Pressure 86/50 12/21/2011 12:43 PM CDT Pulse 140 12/21/2011 4:59 PM CDT Temperature 36.6 ??C (97.8 ??F) 12/21/2011 4:59 PM CD T Respiratory Rate 24 12/21/2011 4:59 PM CDT Oxygen Saturation - - Inhaled Oxygen Concentration - - Weight 25 kg (55 lb 1.8 oz) 12/21/2011 12:43 PM CDT Height - - Body Mass Index - - documented in this encounter Discharge Instructions * Discharge Instructions* Christo Askew NP - 12/21/2011 5:01 PM CDT Constipation In Children Your child is constipated. Constipation causes belly (abdominal) cramping and difficulty passing stools. Most often it is due to a diet that does not have enough fiber. It can also be caused by bathroom habits. These include waiting too long to go to the toilet or emotional upsets. Sometimes passing a hard, constipated stool will cause a small tear in the anal area resulting in small amounts of blood on the toilet paper or stool. This condition will usually heal without treatment. HOME CARE INSTRUCTIONS ?? Dietary treatment for infants includes adding pear or prune juice, or age and texture appropriate fruits and vegetables such as prunes, pears, peaches, apricots, peas, spinach, or beans. ?? Avoid giving apples, bananas or rice cereal. ?? Milk products may also increase constipation. Soy formula may be helpful. Please consult your mud tank operator before any changes are made. ?? For older children, add the above fruits and vegetables plus foods containing bran such as wholegrain cereals, bran muffins, and whole wheat bread. ?? Avoid refined grains and other starches such as white rice, white bread or crackers, and potatoes. ?? You should help your child to have regular stools by having him or her sit on the toilet for a few minutes after meals. A registered nurse midwife can help you and your child get enough fiber that will help lessen problems with constipation. If diet changes do not work right away, you may try a mild laxative such as Maltsuprex, Milk of Magnesia, or Miralax. Glycerine suppositories may also be prescribed. SEEK MEDICAL CARE IF YOUR CHILD DEVELOPS: ?? Increasing pain. ?? Does not have a bowel movement after 3 days of treatment. ?? Has leaking stools, or passes blood. Document Released: 08/29/2005 Document Re-Released: 08/10/2008 ExitCare?? Patient Information ??2009 [employer]. * Discharge Instructions* Document, Scanned - 12/24/2011 7:46 AM CDT documented in this encounter Medications at Time of Discharge Medication Sig Dispensed Refills Start Date End Date dexmethylphenidate (FOCALIN) 10 MG tablet Take 10 mg by mouth 3 times daily. 03/24/2012 fleet enema (FLEET) 7-19 GM/118ML enema Insert 1 Enema into the rectum once as needed for Constipation for 1 dose. 1 Enema 0 12/21/2011 02/01/2012 Magnesium Hydroxide (MILK OF MAGNESIA PO) Take by mouth. 01/04 polyethylene glycol 3350 (MIRALAX) powder Take 17 g by mouth once daily. 850 g 0 12/21/2011 02/01/2012 QUEtiapine (SEROQUEL) 100 MG tablet Take 100 mg by mouth 3 times daily. 02/01/2012 sertraline (ZOLOFT) 50 MG tablet Take 50 mg by mouth daily. Take 1 1/2 tabs Daily 02/01/2012 documented as of this encounter ED Notes * Shira Grey RN - 12/21/2011 5:01 PM CDT pullups and blue pads given to mother for ride home * Shira Grey RN - 12/21/2011 4:42 PM CDT In bathroom with pt , attempting to pass stool, Christo Askew aware of situation as well as Dr. Gilbert, * Christo Askew NP - 12/21/2011 1:03 PM CDT Images from the original note were not included. EMERGENCY DEPARTMENT 12/21/[address] Geo Goyal MD We had the pleasure of caring for your patient, Mae Frances in our emergency department on 12/21/2011. A note from the provider(s) who cared for your patient is attached. Should you wish to access any laboratory results, please call . Should you wish to access any radiology results, please call , option 3. In addition, you can access patient information 24 hours a day, from any computer, through [employer], the online version of our electronic medical record. If you would like to use this service, please call Jadyn Zazueta, Connectivity Coordinator, at . We appreciate the opportunity to care for your patients. If you would like additional information, please call the emergency department directly at . Sincerely, Christo Askew NP Division of Emergency Medicine [facility], [place] [facility] [place]ERGENCY DEPARTMENT Provider contact with the patient: 12/21/2011 1:03 PM Mae Frances [id number] [facility] EMERGENCY DEPT History Chief Complaint Patient presents with ??? Constipation Patient has issues with constipation. Patient playful. Mother states she is still eating and drinking normally. Denies abdominal pain. Mother not sure when her last was BM. Constipation The history is provided by the parent. This is a chronic problem. The patient is experiencing no pain. There has been loss of appetite. There has been no abdominal pain, no fever, no vomiting and no nausea.There is fiber in the patient's diet. There has not been adequate water intake. The treatmentprovided no relief. Risk factors include: no obesity, no recent dehydration and no immobility. Pt is unaware of when the last BM was - mom has been giving MOM, mag citrate, gave her and enema (5days ago). Mom states that pt refuses to void. Has had constipation since per mom. Colonoscopy at age 6 - revealed chronic constipation. Hx admission for constipation 1 month ago - pt received NG tube + GoLytely. Also with hx of FTT - evaluated by nutrition 06/2011. Past Medical History Diagnosis Date ??? Headache [...] mouth once daily. 850 g 0 ??? fleet enema (FLEET) 7-19 GM/118ML enema Insert 1 Enema into the rectum once as needed for Constipation for 1 dose. 1 Enema 0 ??? QUEtiapine (SEROQUEL) 100 MG tablet Take 100 mg by mouth 3 times daily. ??? dexmethylphenidate (FOCALIN) 10 MG tablet Take 10 mg by mouth 3 times daily. ??? sertraline (ZOLOFT) 50 MG tablet Take 50 mg by mouth daily. Take 1 1/2 tabs Daily ??? Magnesium Hydroxide (MILK OF MAGNESIA PO) Take by mouth. Review of Systems Review of Systems Gastrointestinal: Positive for constipation. Negative for abdominal pain. BP 86/50 Pulse 88 Temp 98.8 ??F Resp 18 Wt 25 kg (55 lb 1.8 oz) Physical Exam Physical Exam Nursing note and vitals reviewed. Constitutional: She is active. HENT: Right Ear: Tympanic membrane normal. Left Ear: Tympanic membrane normal. Mouth/Throat: Mucous membranes are moist. Oropharynx is clear. Eyes: Conjunctivae are normal. Pupils are equal, round, and reactive to light. Neck: Normal range of motion. Neck supple. Cardiovascular: Normal rate and regular rhythm. Pulmonary/Chest: Effort normal and breath sounds normal. Abdominal: Soft. Bowel sounds are normal. She exhibits distension. There is no guarding. Musculoskeletal: Normal range of motion. Neurological: She is alert. Skin: Skin is warm and dry. Rectal exam - hard stool ntoed Procedures Procedures Lab/SPO2 Interpretation Progress Notes Obstructive series obtained - full of stool Adult enema given (per GI) Also given 3 oz of magnesium citrate Pt held stool - some output of liquid brown stool noted ED Course Medical Decision Making Contact GI - Spoke with Dr. Hutchins Rec Pt be admitted for golytely Mom refuses to be admitted at this time Contacted GI and their rec for dc is as follows: Continue miralax + mag citrate+ enema (adult) tonight Mom to call GI number over the weekend if no results and follow up with their services Clinical Impression Encounter Diagnosis Name Primary? Constipation documented in this encounter Miscellaneous Notes * Miscellaneous Scans - Document, Scanned - 04/15/2012 10:49 AM CDT * Miscellaneous Scans - Document, Scanned - 04/03/2012 8:36 AM CDT documented in this encounter Plan of Treatment Not on file documented as of this encounter Procedures Procedure Name Priority Date/Time Associated Diagnosis Comments XR ABD OBSTRUCTION SERIES 2VW STAT 12/21/2011 1:48 PM CDT Constipation documented in this encounter Results * XR ABD OBSTR SERIES (12/21/2011 1:48 PM CDT) Anatomical Region Laterality Modality Abdomen Radiographic Melina ging 12/21/2011 2:03 PM CDT Impressions 12/21/2011 2:36 PM CDT Large amount of stool in the colon. Nonobstructed bowel gas pattern. D: Yazmin Sánchez M.D. Narrative 12/21/2011 2:36 PM CDT Exam: Abdominal series, 2 views Date: December 21, 2011 Comparison: November 18, 2011 History: Constipation Findings: Air-filled loops of bowel are seen in the abdomen with no significant distention. A large amount of stool is present in the colon extending to the region of the rectum. There is no evidence of free intraperitoneal air or intramural air. No pathologic soft tissue calcifications are seen. The lung bases are clear. The osseous structures are intact. Procedure Note Rian Gonzalez Emma - 12/21/2011 Exam: Abdominal series, 2 views Date: December 21, 2011 Comparison: November 18, 2011 History: Constipation Findings: Air-filled loops of bowel are seen in the abdomen with no significant distention. A large amount of stool is present in the colon extending to the region of the rectum. There is no evidence of free intraperitoneal air or intramural air. No pathologic soft tissue calcifications are seen. The lung bases are clear. The osseous structures are intact. IMPRESSION Large amount of stool in the colon. Nonobstructed bowel gas pattern. D: Yazmin Sánchez M.D. Christo Askew ANALYTICAL SCIENCES DIRECTOR-SURGICAL SPECIALIST DIAGNOSTIC IMAGI NG ORDERABLES documented in this encounter Visit Diagnoses Diagnosis Constipation Unspecified constipation documented in this encounter Administered Medications Inactive Administered Medications - up to 3 most recent administrations Medication Order MAR Action Action Date Dose Rate Site fleet enema (FLEET) enema 1 Enema 1 enema, Rectal, ONCE, 1 dose, On Sat12/21/11 at 1530 $ Given 12/21/2011 3:27 PM CDT 1 enema magnesium citrate solution 100 mL 100 mL (4 mL/kg ? 25 kg), Oral, ONCE, 1 dose, On Sat12/21/11 at 1600 $ Given 12/21/2011 3:28 PM CDT 100 mL documented in this encounter Active and Recently Administered Medications Times are shown in CDT. Scheduled Medication Order 12/19/2011 12/20/2011 12/21/2011 fleet enema (FLEET) enema 1 Enema (COMPLETED) 1 enema, Rectal, ONCE, 1 dose, On Sat12/21/11 at 1530 1527 ($ Given - Prov ider: Maine Mchugh RN) magnesium citrate solution 100 mL (COMPLETED) 100 mL (4 mL/kg ? 25 kg), Oral, ONCE, 1 dose, On Sat12/21/11 at 1600 1528 ($ Given - Prov ider: Maine Mchugh RN) documented in this encounter Care Teams Receptionist Clerk Relationship Specialty Start Date End Date Geo Goayl MD [address] [place] [address] PCP - General 08/24/09 01/15/22 documented as of this encounter
--- OUTSIDE RECORDS SUMMARY | 2024-08-02 02:36 | XMS_ITS | Encounter Summary ---
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 Says she did not eat much. Encounter Details Date Type Department Care Team ([facility] st Contact Info) Description 01/16/2022 5:21 PM CDT - 01/16/2022 7:27 PM CDT Emergency ER at [facility] [address] [place] [address] Cuong Hart, DO [address] [facility] [address] [place], [place] [id number] Dehydration; Burn from the sun; Heat exhaustion, initial encounter Discharge Disposition: Home or Self Care Social History Tobacco Use Types Packs/Day Years Used Date Smoking Tobacco: Never Smokeless Tobacco: Never Alcohol Use Standard Drinks/Week Comments No 0 (1 standard drink = 0.6 oz pur e alcohol) AUDIT-C Answer Date Recorded Q1: How often do you have a drink containing alcohol? Never 01/16/2022 Q2: How many drinks containi ng alcohol do you have on a typical day when you are drinking? Patient does not drink Q3: How often do you have si x or more drinks on one occasion? Never 01/16/2022 Sex and Gender Information Value Date Recorded Sex Assigned at Not on file Gender Identity Not on file Sexual Orientation Not on file documented as of this encounter Last Filed Vital Signs Vital Sign Reading Time Taken Comments Blood Pressure 115/73 01/16/2022 4:19 PM CDT Pulse 84 01/16/2022 4:19 PM CDT Temperature 36.6 ??C (97.8 ??F) 01/16/2022 4:19 PM CD T Respiratory Rate 16 01/16/2022 4:19 PM CDT Oxygen Saturation 98% 01/16/2022 4:19 PM CDT Inhaled Oxygen Concentration - - Weight 45.4 kg (100 lb) 01/16/2022 4:19 PM CDT Height 165.1 cm (5' 5 ) 01/16/2022 4:19 PM CDT Body Mass Index 16.64 01/16/2022 4:19 PM CDT documented in this encounter Discharge Instructions * Discharge Instructions* Narayan Carter MD - 01/16/2022 6:39 PM CDT Rest tonight, drink plenty of fluids. Use SPF50+ sunblock liberally when in the sun, re-applying every couple hours, multiple times each day, and allow to dry completely prior to getting in the water. Return to the ED immediately for chest pain, difficulty breathing, severe abdominal pain, or otherworrisome symptoms. * Attachments The following attachments cannot be sent through Care Everywhere. * Sunburn (American) * Dehydration (Adult) (American) * Heat Exhaustion (American) documented in this encounter Medications at Time [...] as of this encounter ED Notes * Narayan Carter MD - 01/16/2022 5:32 PM CDT History Chief Complaint Patient presents with ??? 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 Says she did not eat much. 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 She states that she was treated in their facilities First Aid office, was given medicine to treat nausea, had no improvement of symptoms. She denies wearing sun block today, no recent illness. She does report that she had little to eat today but says that she has been drinking fluids. Past Medical History: Diagnosis Date ??? ADHD (attention deficit hyperactivity disorder) ??? Aggression ??? Bipolar affective ??? Constipation, chronic ??? Headache(784.0) started approximately 2 years ago ??? Learning disability ??? ODD (oppositional defiant disorder) ??? S/P colonoscopy age 6y/o ??? Sensory integration disorder Past Surgical History: Procedure Laterality Date ??? BIOPSY 01/31/2012 N/A; BIOPSY RECTAL ??? Tonsillectomy 2010 Family History Problem Relation Name Age of Onset ??? Migraine Mother ??? ADHD Maternal Uncle Also patient's cousin ??? Bipolar Disorder Maternal Uncle Also patient's cousin ??? Other Other Cousin with chronic constipation Social History Socioeconomic History ??? Marital status: [...] Housing Stability: Not on file Review of systems Constitutional: no fevers, no chills Eyes: Had brief tunnel vision at onset of lightheadedness, but this resolved within moments ENT: No sore throat, no rhinorrhea, no dysphagia Cardiovascular: no chest pain, no palpitations Respiratory: no shortness of breath, no cough Gastrointestinal: no abdominal pain, with nausea and vomiting Genitourinary: no dysuria, no hematuria Musculoskeletal: no joint pain, no swelling Skin: No rash, no itching Neuro: no focal weakness, no numbness Physical Exam BP 115/73 Pulse 84 Temp 97.8 ??F (36.6 ??C) (Temporal) Resp 16 Ht 1.651 m (5' 5 ) Wt 45.4 kg (100 lb) SpO2 98% BMI 16.64 kg/m2 Physical Exam Constitutional: Well developed, well nourished, in NAD, diffuse first-degree sunburn over exposed skin Eyes: Sclera normal, EOMI, PERRL HEENT: normocephalic, atraumatic, moist mucous membranes, no nasal discharge Neck: supple, non-tender, no lymphadenopathy Pulmonary: CTAB, no wheezing/rhonci/rales Cardiovascular: RRR, no murmurs rubs or gallops Abdomen: soft, non rigid, no guarding, non-tender Extremities/MSK: no swelling, peripheral pulses intact, normal ROM Neuro: alert and oriented x3, 5/5 strength in all extremities, CN II-XII intact MDM Clinical Diagnosis: Heat exhaustion, 1st degree sunburn DDX: He has exhaustion versus heat stroke versus viral syndrome versus electrolyte disturbance vs other Plan: -labs -IV fluids -symptom control -reassess ED Course -Patient seen and evaluated, available studies reviewed -Initial workup and treatment plan discussed with patient and provided opportunity to ask questions -hemodynamically stable, no significant electrolyte disturbance, symptoms controlled, tolerating p.o. Labs Reviewed CBC W AUTO DIFFERENTIAL - Abnormal; Notable for the following components: Result Value WBC 14.5 (*) Neutrophils % 79.3 (*) Lymphocytes % 14.4 (*) Neutrophil Absolute 11.48 (*) Immature Granulocytes Absolute 0.07 (*) All other components within normal limits COMPREHENSIVE METABOLIC PANEL - Abnormal; Notable for the following components: Chloride 109 (*) Alkaline Phosphatase 38 (*) All other components within normal limits CK BLOOD - Normal HCG URINE QUAL POCT NOTIFICATION URINALYSIS REFLEX MICROSCOPIC REFLEX CULTURE -I have reviewed the diagnostic findings with the patient and they have had an opportunity to ask me any questions they have about care, diagnosis and discharge plan. The patient verbalizes understanding and agreement with plan. They will follow up as directed and will return to the ER if their condition worsens or if they develop other urgent concerns. Procedures ED Final Diagnosis and Discharge information 1. Dehydration 2. Burn from the sun 3. Heat exhaustion, initial encounter Disposition Home Narayan Carter MD Emergency Medicine Resident 01/16/2022 9:06 PM Associated attestation - Cuong Hart DO - 01/16/2022 9:52 PM CDT 01/16/2022 21:52 I have examined the patients and discussed the findings of my examination with the patient and the resident. I agree with the resident regarding the assessment and plan of care. documented in this encounter Plan of Treatment Not on file documented as of this encounter Procedures Procedure Name Priority Date/Time Associated Diagnosis Comments CBC W AUTO DIFFERENTIAL STAT 01/16/2022 5:10 PM CDT COMPREHENSIVE METABOLIC PANEL STAT 01/16/2022 5:10 PM CDT CK BLOOD STAT 01/16/2022 5:10 PM CDT HCG URINE QUAL POCT NOTIFICATION STAT 01/16/2022 4:41 PM CDT documented in this encounter Results * CK BLOOD (01/16/2022 5:10 PM CDT) CK 104 29 - 168 U/L 01/16/2022 5:31 PM CDT [facility] Blood BLOOD SPECIMEN / Unknown Venipuncture / Unknown 01/16/2022 5:10 PM CDT 01/16/2022 5:13 PM CDT Star Nader Godinez WAFER CLEANER-FINISH PATCHER LAB - CHEMISTRY ORDERABLES [facility] [address] [place] [address] * (ABNORMAL) COMPREHENSIVE METABOLIC PANEL (01/16/2022 5:10 PM CDT) Glucose 88 70 - 105 mg/dL 01/16/2022 5:31 PM CDT [facility] Sodium 141 136 - 145 mmol/L 01/16/2022 5:31 PM CDT [facility] Potassium 3.6 3.5 - 5.1 mmol/L 01/16/2022 5:31 PM CDT [facility] Chloride 109(H) 98 - 107 mmol/L 01/16/2022 5:31 PM CDT [facility] CO2 24 23 - 31 mmol/L 01/16/2022 5:31 PM CDT [facility] Calcium 8.7 8.4 - 10.4 mg/dL 01/16/2022 5:31 PM CDT [facility] Anion Gap 8 8 - 18 mmol/L 01/16/2022 5:31 PM CDT [facility] BUN 10 7 - 18.7 mg/dL 01/16/2022 5:31 PM CDT [facility] Creatinine 0.73 0.57 - 1.11 mg/dL 01/16/2022 5:31 PM CDT [facility] Alkaline Phosphatase 38(L) 40 - 150 U/L 01/16/2022 5:31 PM CDT [facility] ALT 19 0 - 61 U/L 01/16/2022 5:31 PM CDT [facility] AST 25 5 - 34 U/L 01/16/2022 5:31 PM CDT [facility] Protein Total 6.6 6.4 - 8.3 gm/dL 01/16/2022 5:31 PM CDT [facility] Albumin 3.6 3.4 - 5.0 gm/dL 01/16/2022 5:31 PM CDT [facility] Bilirubin Total 0.5 0.2 - 1.2 mg/dL 01/16/2022 5:31 PM CDT [facility] eGFR by CKD-EPI >90 >=90 mL/min/1.7 3 m2 01/16/2022 5:31 PM CDT [facility] Blood BLOOD SPECIMEN / Unknown Venipuncture / Unknown 01/16/2022 5:10 PM CDT 01/16/2022 5:13 PM CDT Star Godinez WAFER CLEANER-FINISH PATCHER LAB - CHEMISTRY ORDERABLES Performing Organization Address City/State/[facility] Co de Phone Number [facility] [address] [place] [address] * (ABNORMAL) CBC W AUTO DIFFERENTIAL (01/16/2022 5:10 PM CDT) WBC 14.5(H) 4.4 - 10.7 x10E9/L 01/16/2022 5:16 PM CDT [facility] WBC Corrected 01/16/2022 5:16 PM CDT [facility] RBC 4.80 3.80 - 5.20 x10E12/L 01/16/2022 5:16 PM CDT [facility] Hemoglobin 12.9 12.0 - 15.6 gm/dL 01/16/2022 5:16 PM CDT [facility] Hematocrit 38.9 35.9 - 45.5 % 01/16/2022 5:16 PM CDT [facility] MCV 81.0 80.7 - 98.3 fl 01/16/2022 5:16 PM CDT [facility] MCH 26.9 26.7 - 34.0 pg 01/16/2022 5:16 PM CDT [facility] MCHC 33.2 30.8 - 35.9 gm/dL 01/16/2022 5:16 PM [facility] Platelet Count 377 153 - 416 x10E9/L 01/16/2022 5:16 PM [facility] RDW-CV 13.4 12.1 - 14.9 % 01/16/2022 5:16 PM [facility] MPV 9.9 9.4 - 12.9 fl 01/16/2022 5:16 PM [facility] Neutrophils % 79.3(H) 44.0 - 73.0 % 01/16/2022 5:16 PM [facility] Lymphocytes % 14.4(L) 20.0 - 43.0 % 01/16/2022 5:16 PM [facility] Monocytes % 5.0 5.0 - 13.0 % 01/16/2022 5:16 PM [facility] Eosinophils % 0.3 0.0 - 6.0 % 01/16/2022 5:16 PM [facility] Basophils % 0.5 0.0 - 2.0 % 01/16/2022 5:16 PM [facility] Immature Granulocytes 0.5 0 - 1 % 01/16/2022 5:16 PM [facility] Neutrophil Absolute 11.48(H) 2.01 - 7.14 x10E9/L 01/16/2022 5:16 PM [facility] Lymphocytes Absolute 2.08 1.07 - 3.94 x10E9/L 01/16/2022 5:16 PM [facility] Monocytes Absolute 0.73 0.26 - 1.07 x10E9/L 01/16/2022 5:16 PM [facility] Eosinophils Absolute 0.04 0 - 0.47 x10E9/L 01/16/2022 5:16 PM [facility] Basophils Absolute 0.07 0 - 0.08 x10E9/L 01/16/2022 5:16 PM [facility] Immature Granulocytes Absolute 0.07(H) 0.00 - 0.06 x10E9/L 01/16/2022 5:16 PM [facility] nRBC Auto 0 /100 WBC 01/16/2022 5:16 PM [facility] Blood BLOOD SPECIMEN / Unknown Venipuncture / Unknown 01/16/2022 5:10 PM CDT 01/16/2022 5:13 PM CDT Star Godinez FELIX-FINISH PATCHER LAB - HEMATOLOGY ORDERABLES [facility] [address] [address] * HCG URINE QUAL POCT NOTIFICATION (01/16/2022 4:41 PM CDT) Comment Notification Label Only - See Separate Report 01/16/2022 7:32 PM CDT [facility] Urine URINE / Unknown 01/16/2022 4 :41 PM CDT 01/16/2022 6:13 PM CDT Star Godinez WAFER CLEANER-FINISH PATCHER LAB - URINALYSIS ORDERABLES [facility] [address] [id number] documented in this encounter Visit Diagnoses Diagnosis Dehydration Burn from the sun Sunburn Heat exhaustion, initial encounter documented in this encounter Administered Medications Inactive Administered Medications - up to 3 most recent administrations Medication Order MAR Action Action Date Dose Rate Site 0.9% NaCl injection 1-10 mL 1-10 mL, Intracatheter, PRN, Other, peripheral line flush, Starting on Sat01/16/22 at 1640, Until Sat01/16/22 at 2026, Flush peripheral IV catheter with 1-10 mL of normal saline before and after medications and prn to clear blood from the line or to verify patency. 0.9% NaCl injection 3 mL 3 mL, Intracatheter, EVERY 8 HOURS, First dose on Sat01/16/22 at 1715, Until Discontinued, Flush peripheral IV catheter with 3 mL of normal saline every 8 hours. 0.9% NaCl IV bolus 1,000 mL, at 1,935.48 mL/hr, Administer over 31 Minutes, NOW, 1 dose, On Sat01/16/22 at 1645 $ Admin. by Other Provider 01/16/2022 5:56 PM CDT 1,000 mL 1935.48 mL/hr acetaminophen (Tylenol) tablet 500 mg 500 mg, Oral, NOW, 1 dose, On Sat01/16/22 at 1830, Patient preference for lesser PRN pain meds may be honored when the patient requests a less strong medication, a lower dose, or a less intrusive route of administration when the lesser drug, dose and route have been ordered for the patient. This patient request must be documented in the MAR. $ Given 01/16/2022 6:41 PM CDT 500 mg ondansetron (Zofran) injection 4 mg 4 mg, Intravenous, NOW, 1 dose, On Sat01/16/22 at 1830, Administer over 2 to 5 minutes. $ Given 01/16/2022 6:42 PM CDT 4 mg documented in this encounter Active and Recently Administered Medications Times are shown in CDT. Scheduled Medication Order 01/14/2022 01/15/2022 01/16/2022 0.9% NaCl injection 3 mL(Linked Group 1) 3 mL, Intracatheter, EVERY 8 HOURS, First dose on Sat01/16/22 at 1715, Until Discontinued, Flush peripheral IV catheter with 3 mL of normal saline every 8 hours. 1715 (Due) 0.9% NaCl IV bolus (COMPLETED) 1,000 mL, at 1,935.48 mL/hr, Administer over 31 Minutes, NOW, 1 dose, On Sat01/16/22 at 1645 1756 ($ Admin. by Ot her Provider - Provider: Makeda Kingston RN) acetaminophen (Tylenol) tablet 500 mg (COMPLETED) 500 mg, Oral, NOW, 1 dose, On Sat01/16/22 at 1830, Patient preference for lesser PRN pain meds may be honored when the patient requests a less strong medication, a lower dose, or a less intrusive route of administration when the lesser drug, dose and route have been ordered for the patient. This patient request must be documented in the MAR. 1840 ($ Given - Prov ider: Iker Crews) ondansetron (Zofran) injection 4 mg (COMPLETED) 4 mg, Intravenous, NOW, 1 dose, On Sat01/16/22 at 1830, Administer over 2 to 5 minutes. 1841 ($ Given - Prov ider: Iker Crews) PRN Medication Order 01/14/2022 01/15/2022 01/16/2022 0.9% NaCl injection 1-10 mL(Linked Group 1) 1-10 mL, Intracatheter, PRN, Other, peripheral line flush, Starting on Sat01/16/22 at 1640, Until Sat01/16/22 at 2026, Flush peripheral IV catheter with 1-10 mL of normal saline before and after medications and prn to clear blood from the line or to verify patency. Linked Groups Order Group 1: SALINE LOCK, INSERT AND MAINTAIN (CANCELED) Routine, CONTINUOUS, Starting on Sat01/16/22 at 1645, Until Specified, New collection And 0.9% NaCl injection 3 mLJump to med 3 mL, Intracatheter, EVERY 8 HOURS, First dose on Sat01/16/22 at 1715, Until Discontinued, Flush peripheral IV catheter with 3 mL of normal saline every 8 hours. And 0.9% NaCl injection 1-10 mLJump to med 1-10 mL, Intracatheter, PRN, Other, peripheral line flush, Starting on Sat01/16/22 at 1640, Until Sat01/16/22 at 2026, Flush peripheral IV catheter with 1-10 mL of normal saline before and after medications and prn to clear blood from the line or to verify patency. documented in this encounter
--- OUTSIDE RECORDS SUMMARY | 2024-08-02 02:36 | XMS_ITS | Encounter Summary ---
Author Organization [facility] Address [address] [place] [address] Care Team Providers Care Oil Spot Washer Name Role Phone Geo Goyal MD Primary Care Provider [phone] Reason for Visit * Auth/Cert - Closed Specialty Diagnoses / Procedures Referred By Suzy t Referred To Contact Diagnoses Constipation [id number] Cg [address] [address] Referral ID Status Reason Start Date Expiration Date Visits Re quested Visits Authorized [id number] Closed 01/23/2012 07/21/2012 1 Encounter Details Date Type Department Care Team (Late st Contact Info) Description 01/31/2012 7:40 PM CDT Anesthesia Event CG [address] [address] Ryann Schafer MD [address] [place] [phone] Sahil Chow MD [address] [place] [address] Anesthesia Record Procedure Summary Procedure Name Responsible Anesthesiologist Anesthesia Start Time Anesthesia Stop Time BIOPSY ANORECTAL Ryann Schafer MD 01/31/12 1233 Events Date Time Event Comment 01/31/2012 1114 1117 An Start 1117 An Start Data 1122 An Induction 1128 An Intubation 1211 An Emergence 1218 Extubation 1221 an stop data Patient Transpo rted to PACU on O2. SpO2 monitoring. Report Given to PACU Nurse. 1233 An Stop Meds Name Total fentaNYL (SUBLIMAZE) 50 mcg/ml 50 mcg lidocaine (MPF) 2% injection 1 mL propofol (DIPRIVAN) 10mg/ml 60 mg vecuronium 10 mg injection 1.5 mg ondansetron (ZOFRAN) 2mg/mL injection 4 mg dexamethasone (DECADRON) 4 mg/ml injecti on 4 mg clindamycin (CLEOCIN) 150mg/ml injection 250 mg glycopyrrolate (Robinul) injection 0.2 m g neostigmine 1 mg/ml injection 1.2 mg piperacillin-tazobactam 60 mg/mL injecti on 1,270 mg isolyte-S pH 7.4 infusion 175 mL * Agents Name Insp. N2O Exp. Sevoflurane Insp. Sevoflurane * Blood No blood administrations on file. Lines, Drains, and Airways Type Details Placement Removal Peripheral IV Date: 01/31/12; Time: 109; Orientation: Right; Placed By: Crystal Del Rio RN; Tolerance: Well 01/31/12 0110 by Barry Del Rio RN 02/01/12 1030 by Amy Chappell, CAN CLOSING MACHINE TENDER-CURVE SAW OPERATOR RETIRED Procedural Site 01/31/12; 1154; Rectum; 05/07/12; 0622 01/31/12 1154 by Susana Walter RN 05/07/12 0622 by Generic, Auto Release documented in this encounter Social History Tobacco Use Types Packs/Day Years Used Date Smoking Tobacco: Passive Smo ke Exposure - Never Smoker Alcohol Use Standard Drinks/Week Comments No 0 (1 standard drink = 0.6 oz pur e alcohol) Sex and Gender Information Value Date Recorded Sex Assigned at Not on file Gender Identity Not on file Sexual Orientation Not on file documented as of this encounter Progress Notes * Ryann Schafer MD - 01/31/2012 1:12 PM CDT ANESTHESIA POSTPROCEDURE EVALUATION Mae Frances is a 11 y.o. female Temp: 36.3 ??C Pulse: 81 Resp: 20 BP: 86/58 mmHg Pain Rating Score #: 0 Mental status: sufficiently recovered from acute administration of anesthesia to participate in theevaluation. Level of consciousness: awake General appearance: well-appearing Respiratory function: natural airway. Cardiac: stable Pain: comfortable/acceptable PONV: None Postop hydration: adequate. Final anesthesia type: General Patient may be released from anesthesia care. . * Sahil Chow MD - 01/30/2012 8:04 PM CDT PRE-ANESTHESIA EVALUATION Procedure(s) (LRB): BIOPSY RECTAL (N/A) Physical Exam: Oriented x 3 Dental exam findings: Chipped. Airway class: I. Pulmonary exam: clear to auscultation. Cardiovascular exam positive for: S1 S2. Mae Frances 11 y.o. female : 2000 PRE-ANESTHESIA EVALUATION Patient Active Problem List Diagnoses ??? Fecal impaction ??? Poor weight gain in child ??? ADHD (attention deficit hyperactivity disorder) ??? Bipolar 1 disorder ??? Learning disability ??? ODD (oppositional defiant disorder) ??? Weight loss ??? Behavior disorder ??? Counseling regarding goals of care Allergies Tegretol and Stimulant laxative Meds Prescriptions prior to admission Medication Sig Dispense [...] (MILK OF MAGNESIA PO) Take by mouth. Current Facility-Administered Medications Medication Dose Route Frequency Provider Last Rate Last Dose ??? dextrose 5% and 0.45% NaCl with KCl 20 mEq infusion Intravenous Continuous Jacqui Cedillo MD ??? midazolam (VERSED) injection 1.27 mg 0.05 mg/kg Intravenous intra-Procedure multiple Damien Middleton, DO ??? ketamine (KETALAR) injection 12.7-50.8 mg 0.5-2 mg/kg Intravenous intra- Procedure multiple Damien Middleton, DO ??? iothalamate meglumine (CYSTO CONRAY II) 17.2 % solution Urethral Contrast - Once Patric Good MD 2,500 mL at 01/29/12 0902 ??? 0.9% NaCl injection 2 mL 2 mL Intracatheter q4h Swapna Guy MD ??? 0.9% NaCl injection 3 mL 3 mL Intracatheter PRN Swapna Guy MD ??? acetaminophen (TYLENOL) tablet 325 mg 325 mg Oral q4h PRN Swapna Guy MD ??? ibuprofen (MOTRIN) tablet 200 mg 200 mg Oral q4h PRN Swapna Guy MD ??? saline nasal spray (OCEAN; BABY AYR) 0.65 % nasal spray 1 [place] 1 [place] Each Nostril PRN Swapna Guy MD ??? white petrolatum (VASELINE) ointment Topical PRN Swapna Guy MD ??? sertraline (ZOLOFT) tablet 100 mg 100 mg Oral BID Swapna Guy MD 100 mg at 01/30/121906 ??? cloNIDine (CATAPRES) tablet 0.3 mg 0.3 mg Oral NIGHTLY Libra Somers, DO 0.3 mg at 01/30/121906 ??? QUEtiapine (SEROquel) tablet 200 mg 200 mg Oral QAM Libra Somers DO 200 mg at 01/30/12 0701 And ??? QUEtiapine (SEROquel) tablet 100 mg 100 mg Oral BID Libra Somers DO 100 mg at 01/30/121906 Past Medical History Diagnosis Date ??? Headache [...] cousin ??? OTHER Cousin with chronic constipation Labs:No results found for this basename: WBC,HGB,HCT,PLTCOUNT in the last 60640 hours Component Name 01/27/12 0501 09/29/09 1250 SODIUM 141 -- POTASSIUM 3.5 -- CO2 26 -- BUN 4.5* -- CREATININE 0.39* -- GLUCOSE -- 90 No results found for this basename: PT,INR,PTT in the last 18952 hours Test:No results found for this basename: HCGURINE,HCGQUAL in the last 73211 hours VITAL SIGNS Temp: 36.6 ??C Pulse: 132 Resp: 20 BP: 92/64 mmHg Weight: 25.4 kg (56 lb) Height: 129 cm (4' 2.79 ) SpO2: 99 % Pre-Eval ExamPrevious Review I reviewed previous documentation: Yes Patient prefers ASA 1 Planned intraoperative anesthesia: general Planned postop anesthesia per surgeon request: opioids. Planned postop destination: PACU Planned induction: Intravenous Anesthetic plan, risks and benefits discussed with patient and mother. Anesthesia consent: Consent for anesthesia obtained Discussed anesthesia plan with: Attending. Telephone consent mother luc- [phone] documented in this encounter Plan of Treatment Not on file documented as of this encounter Visit Diagnoses Not on filedocumented in this encounter Administered Medications Inactive Administered Medications - up to 3 most recent administrations Medication Order MAR Action Action Date Dose Rate Site clindamycin (CLEOCIN) injection PRN, Starting on Gladis 01/31/12 at 1142, Until Gladis 01/31/12 at 1233, For IV administration dilute with D5W or NS to a concentration no greater than 18mg/ml, Anesthesia Intra-op $ Given 01/31/2012 11:42 AM CDT 250 mg dexamethasone (DECADRON) injection PRN, Nausea/Vomiting, Starting on Gladis 01/31/12 at 1137, Until Gladis 01/31/12 at 1233, Anesthesia Intra-op $ Given 01/31/2012 11:37 AM CDT 4 mg fentaNYL (SUBLIMAZE) injection PRN, Starting on Gladis 01/31/12 at 1122, Until Gladis 01/31/12 at 1233, Anesthesia Intra-op $ Given 01/31/2012 11:22 AM CDT 50 mcg glycopyrrolate (ROBINUL) injection PRN, Starting on Gladis 01/31/12 at 1206, Until Gladis 01/31/12 at 1233, Anesthesia Intra-op $ Given 01/31/2012 12:06 PM CDT 0.2 mg isolyte-S pH 7.4 infusion CONTINUOUS PRN, Starting on Gladis 01/31/12 at 1120, Until Gladis 01/31/12 at 1233, Anesthesia Intra-op $ New Bag/Syringe 01/31/2012 11:20 AM CDT mL lidocaine (XYLOCAINE MPF) 2 % injection PRN, Starting on Gladis 01/31/12 at 1122, Until Gladis 01/31/12 at 1233, Anesthesia Intra-op $ Given 01/31/2012 11:22 AM CDT 1 mL neostigmine (PROSTIGMIN) injection PRN, Starting on Gladis 01/31/12 at 1206, Until Gladis 01/31/12 at 1233, Anesthesia Intra-op $ Given 01/31/2012 12:06 PM CDT 1.2 mg ondansetron (ZOFRAN) injection PRN, Nausea/Vomiting, Starting on Gladis 01/31/12 at 1137, Until Gladis 01/31/12 at 1233, Anesthesia Intra-op $ Given 01/31/2012 11:37 AM CDT 4 mg piperacillin-tazobactam (ZOSYN) 60 mg/ml pediatric IV PRN, Starting on Gladis 01/31/12 at 1232, Until Sat01/15/23 at 0925, Diluted in D5W, Anesthesia Intra-op $ Given 01/31/2012 12:32 PM CDT 1,270 mg propofol (DIPRIVAN) injection PRN, Starting on Gladis 01/31/12 at 1122, Until Gladis 01/31/12 at 1233, Anesthesia Intra-op $ Given 01/31/2012 11:22 AM CDT 60 mg vecuronium (NORCURON) injection PRN, Starting on Gladis 01/31/12 at 1122, Until Gladis 01/31/12 at 1233, Anesthesia Intra-op $ Given 01/31/2012 11:22 AM CDT 1.5 mg documented in this encounter Care Teams Oil Spot Washer Relationship Specialty Start Date End Date Geo Goyal MD [address] [place] [address] PCP - General 08/24/09 01/15/22 documented as of this encounter
--- OUTSIDE RECORDS SUMMARY | 2024-08-02 02:36 | XMS_ITS | Encounter Summary ---
Author Organization [facility] Address [address] [place] [address] Care Team Providers Care Ramp Supervisor Name Role Phone Geo Goyal MD Primary Care Provider [phone] Reason for Visit * Reason Comments Constipation Encounter Details Date Type Department Care Team (Latest Contact Info) Description 08/19/2012 2:04 PM DIRECTOR OF OPERATIONS HOME HEALTH - 08/19/2012 11:59 PM DIRECTOR OF OPERATIONS HOME HEALTH Hospital Encounter [facility] - [facility] [place] [address] Barry Kendall MD [address] [place] [address] Discharge Disposition: Home or Self Care Social [...] Sign Reading Time Taken Comments Blood Pressure 98/68 08/19/2012 2:07 PM DIRECTOR OF OPERATIONS HOME HEALTH Pulse - - Temperature - - Respiratory Rate - - Oxygen Saturation - - Inhaled Oxygen Concentration - - Weight 27.4 kg (60 lb 4.8 oz) 08/19/2012 2:07 PM DIRECTOR OF OPERATIONS HOME HEALTH Height 143.9 cm (4' 8.65 ) 08/19/2012 2:07 PM CS T Body Mass Index 13.21 08/19/2012 2:07 PM DIRECTOR OF OPERATIONS HOME HEALTH Body Mass Index Percentile 1.05% 08/19/2012 2:0 7 PM DIRECTOR OF OPERATIONS HOME HEALTH Growth Chart: [facility] (Girls, 2- 20 Years) documented in this encounter Discharge Instructions * Patient Instructions* Barry Kendall MD - 08/19/2012 2:39 PM DIRECTOR OF OPERATIONS HOME HEALTH Milk of magnesia 2 tablets daily If results not adequate, will add Ex-Lax chewables (1/2 of a small square) daily Call in 2 weeks, return in 3 months CTOR OF OPERATIONS HOME HEALTH documented in this encounter Medications at Time of Discharge Medication Sig Dispensed Refills Start Date End Date gabapentin (NEURONTIN) 100 MG capsule Take 100 mg by mouth 3 times daily. 04/13/2016 polyethylene glycol 3350 (MIRALAX) powder Take 17 g by mouth 2 times daily. Take an extra capful if no stool within the past 36 hours. 850 g 2 02/01/2012 10/07/2012 sertraline (ZOLOFT) 100 MG tablet Take 1 Tab by mouth 2 times daily. 60 Tab 0 02/01/2012 01/16/2023 documented as of this encounter Progress Notes * Barry Kendall MD - 08/19/2012 8:13 PM CST [address] [address] PEDIATRIC GASTROENTEROLOGY NAME: RENATO GONZALEZ : 2000 UNIT #: [id number] CSN #: [id number] DATE SEEN: 08/19/[address] Goyal: I saw Renato in the Gastroenterology Clinic today here at the [facility]. She is a 11-year-old girl with a history of chronic constipation. One of the problems she has been having is that she was refusing to take liquid medicine, so the MiraLAX was not a helpful medication for her. Her mother states that she has been taking tablets without a problem. At this time, she is on no medication and continues to have problems with constipation. On exam today, her weight is 27.3 kg. She appears comfortable, well-nourished and is very active. Her mouth and throat are normal. The chest is clear. Her cardiac exam shows a normal S1, S2 without a murmur. The abdomen is soft. There is no tenderness and no organomegaly. I palpate no significant mass of stool. I think we can help Renato by switching to another form of stool softener. I have recommended the following. 1. Milk of magnesia, 2 tablets daily. 2. If effect is not adequate, add chewable Ex-Lax 1/2 square or 8 mg of senna daily. 3. Call in 2 weeks and return in 3 months. Thank you very much for letting us see her with you. Sincerely, Dictated By: BARRY KENDALL MD [facility] JOB ID: [id number] cc: Geo Goyal M.D. cc: Geo Goyal M.D. PEDIATRIC GASTROENTEROLOGY CTOR OF OPERATIONS HOME HEALTH documented in this encounter Miscellaneous Notes * Miscellaneous Scans - Document, Scanned - 10/08/2012 9:52 AM CST CTOR OF OPERATIONS HOME HEALTH documented in this encounter Plan of Treatment Not on file documented as of this encounter Visit Diagnoses Not on filedocumented in this encounter Care Teams Ramp Supervisor Relationship Specialty Start Date End Date Geo Goyal MD [address] [place] [address] PCP - General 08/24/09 01/15/22 documented as of this encounter
--- OUTSIDE RECORDS SUMMARY | 2024-08-02 02:36 | XMS_ITS | Clinical Summary ---
Author Organization [facility] Address [address] [facility] [place] [address] Care Team Providers Care Steak Sauce Maker Name Role Phone None, Physician Primary Care Provider Unavailabl e Source Comments [facility],non-owned Affiliates and Associated Physician Practices is amultiple site organization consisting of ambulatory clinics and hospital sitesin [place], [place], [place] and [place]. This disclosure is being madepursuant to the Care Everywhere program and may not contain all information available regarding this patient. Last updated 18.[facility] [employer] Allergies Active Allergy Reactions Criticality Noted Date Comments Bisacodyl Rash Medium 07/10/2010 Carbamazepine Rash 01/30/2010 Medications * Be aware that medications may not be up to date on this document. Alwaysverify current medications with the patient. Medication Sig [...] as an outpatient with Dr. Lomas at [facility] Constipation, unspecified constipation type 01/03 Assessment & [...] 09/17/2018 Assessment & Plan (09/17/2018 8:55 PM TOWEL SEWER): 17 y.o. F with DMDD, Bipolar disorder [...] F/u with [facility] on Saturday Jade, Credentialer at [facility] ([phone]) Counseling regarding goals of care 01/28/2012 Overview [...] several weeks. If unable to transfer to [facility] directly will send patient home with close outpatient follow-up with current Psychiatrist, psychiatry, as well as behavior charts and home schedule. Mother stated understanding and voiced agreement. 01/31- No bed available for months at [facility], pending biopsy results, will send patient home with daily bowel regimen, diary, and close out patient follow-up. Behavior disorder 01/25/2012 Overview (03/26/2012): Followed by Dr. Nilsa Rivera @[phone], ALT# [phone]. Spoken to during the 01/24 admission to [...] therapist until a bed is available at [facility]. 03/24/[address] Nilsa Cartagena-Abel @[phone], ALT# [phone], Psychiatrist taking care of Mae. She informed [...] bloody bowel movements. Social/Behavioral for placement at [facility] was explored but no bed was available. [...] (10/29/2015): 2015 IMO Updt Weight loss 06/07/2011 Family History Medical History Relation Name Comments ADHD Maternal Uncle 1 Also patien t's cousin Bipolar Disorder Maternal Uncle 2 Also pa tient's cousin Migraine Mother Other Other Cousin with chr onic constipation Relation Name Status Comments Father Alive Maternal Uncle 1 Maternal Uncle 2 Mother Alive Other Sister Alive Social History Tobacco Use Types Packs/Day Years [...] 03/25/2023 3:27 PM CDT Plan of Treatment Health Maintenance Due Date Last Done Comments PAP SMEAR 2000 HIV SCREENING 2017 HPV VACCINE (1 - 3-dose series) 2017 CHLAMYDIA/GONORRHEA SCREENING 2018 HEPATITIS C SCREENING 09/27/2020 DTAP/TDAP/TD VACCINES (1 - Tdap) 2021 HEPATITIS B VACCINE (1 of 3 - 19+ 3-dose series) 2021 COVID-19 VACCINE (3 - 2023-2 5 season) 2024 11/24/2020, 11/03/2020 INFLUENZA VACCINE (#1) 2024 0, 08/15/2019 ZOSTER VACCINE (1 of 2) 2052 HIB VACCINE Aged Out No longer eligi ble based on patient's age to complete this topic MENINGOCOCCAL VACCINE Aged Out No eunice yasir eligible based on patient's age to complete this topic PNEUMOCOCCAL VACCINE Aged Out No long er eligible based on patient's age to complete this topic Advance Directives * Full Code (Latest Code Status on File) Date Activated Date Inactivated Comments 01/15/2023 12:15 AM 01/16/2023 3:33 PM Care Teams Steak Sauce Maker Relationship Specialty Start Date End Date None, Physician [address] [place] [address] PCP - General 03/25/23
--- OUTSIDE RECORDS SUMMARY | 2024-08-02 02:36 | XMS_ITS | Encounter Summary ---
Author Organization [facility] Address [address] [place] [address] Care Team Providers Care Office Inspector Name Role Phone Geo Goyal MD Primary Care Provider [phone] Reason for Visit * Reason Onset Date Comments Update 12/26/2011 Encounter Details Date Type Department Care Team (Late st Contact Info) Description 12/26/2011 Telephone [facility] - [address] [place] [address] Ирина Haynes, COMMUNICATION ANALYST-CHEF DE FROID [address] [place] [address] Update Social History Tobacco Use Types Packs/Day Years Used Date Smoking Tobacco: Never Alcohol Use Standard Drinks/Week Comments No 0 (1 standard drink = 0.6 oz pur e alcohol) Sex and Gender Information Value Date Recorded Sex Assigned at Not on file Gender Identity Not on file Sexual Orientation Not on file documented as of this encounter Miscellaneous Notes * Telephone Encounter - Ирина Haynes, RN,CPNP - 12/26/2011 10:52 AM CDT Was speaking with Mae's mother and was then disconnected. Called back and reached mom's voicemail- left a message. * Telephone Encounter - Mikaela Zee - 12/26/2011 10:10 AM CDT Patient seen in ER last weekend for constipation- was sent home with an enima and some other thingsto try. Did have a bm on Saturday but has not had one since. Has an appt set up for 02/14 but wasn'tsure if she should be seen sooner or if there was anything else to try? documented in this encounter Plan of Treatment Not on file documented as of this encounter Visit Diagnoses Not on filedocumented in this encounter Care Teams Office Inspector Relationship Specialty Start Date End Date Geo Goyal MD [address] [place] [address] PCP - General 08/24/09 01/15/22 documented as of this encounter
--- OUTSIDE RECORDS SUMMARY | 2024-08-02 02:36 | XMS_ITS | Encounter Summary ---
Author Organization [facility] Address [address] [facility] [place] [address] Care Team Providers Care Polysomnographic Tech Name Role Phone Geo Goyal MD Primary Care Provider [phone] Reason for Visit * Reason Onset Date Comments Consultation 07/14/2012 Encounter Details Date Type Department Care Team (Late st Contact Info) Description 07/14/2012 Telephone [facility] - [address] [address] Barry Hernandez MD [address] [place] [address] Consultation Social History Tobacco Use Types Packs/Day [...] encounter Miscellaneous Notes * Telephone Encounter - Barry Hernandez MD - 08/14/2012 2:13 PM CST Left message for Dr. Rivera to call, please page me, thx LOGY PROFESSOR * Telephone Encounter - Mikaela Zee - 07/22/2012 8:[address] Hernandez, I received another message from Dr Yeimi Rivera requesting to speak with you regarding Mae. Her contact # is [phone]- LOGY PROFESSOR * Telephone Encounter - Mikaela Zee - 07/14/2012 4:[address] Nilsa Cartagena would like to speak with you regarding Mae LOGY PROFESSOR documented in this encounter Plan of Treatment Not on file documented as of this encounter Visit Diagnoses Not on filedocumented in this encounter Care Teams Polysomnographic Tech Relationship Specialty Start Date End Date Geo Goyal MD [address] [place] [address] PCP - General 08/24/09 01/15/22 documented as of this encounter
--- OUTSIDE RECORDS SUMMARY | 2024-08-02 02:36 | XMS_ITS | Encounter Summary ---
Author Organization [facility] Address [address] [place] [address] Care Team Providers Care Director Global Sales Name Role Phone Carroll Meléndez MD Primary Care Provider [phone] Reason for Visit * Reason Comments Constipation Pt was Urgent Care 2 days. Pt has been impacted in the past. She is tearful at desk. No vomiting. Pt has no appetite today. She has tried multiple OTC medications with no results. Pt has been leaking stool. Pt feeling anxious and is concerned she will have an anxiety attack she has to have a bowel clean out and is requesting medication prior to any procedure. * Auth/Cert (Routine) Specialty Diagnoses / Procedures Referred By Suzy romero Referred To Contact Referral ID Status Reason Start Date Expiration Date Visits Re quested Visits Authorized [id number] 1 1 Encounter Details Date Type Department Care Team (Late st Contact Info) Description 01/14/2023 10:11 PM CDT - 01/16/2023 2:33 PM CDT Emergency [facility] [address] [place] [address] Manju Meyer MD [address] [place] [address] [place] [address] Carroll Poole MD [address] [place] [address] Tory Jin MD [address] OF [facility] [place] [id number] Emergency Medicine Discharge Disposition: Home or Self Care Social History Tobacco Use Types Packs/Day Years Used Date Smoking Tobacco: Never Passive Smoke Exposure: Current Smokeless Tobacco: Never Alcohol Use Standard Drinks/Week Comments No 0 (1 standard drink = 0.6 oz pur e alcohol) AUDIT-C Answer Date Recorded Q1: How often do you have a drink containing alc ohol? Never 01/14/2023 Average Number of Drinks Not on file 023 Frequency of Binge Drinking Not on file 01/03 Sex and Gender Information Value Date Recorded Sex Assigned at Not on file Gender Identity Not on file Sexual Orientation Not on file documented as of this encounter Last Filed Vital Signs Vital Sign Reading Time Taken Comments Blood Pressure 113/66 01/16/2023 1:10 PM CDT Pulse 90 01/16/2023 1:10 PM CDT Temperature 36.4 ??C (97.6 ??F) 01/16/2023 1:10 PM CD T Respiratory Rate 20 01/16/2023 1:10 PM CDT Oxygen Saturation 98% 01/16/2023 1:10 PM CDT Inhaled Oxygen Concentration - - Weight 46.4 kg (102 lb 4.7 oz) 01/15/2023 1:27 A M CDT Height 166 cm (5' 5.35 ) 01/14/2023 9:57 PM CDT Body Mass Index 16.84 01/14/2023 9:57 PM CDT documented in this encounter Discharge Summaries * Gypsy Hendrickson - 01/16/2023 2:33 PM CDT Images from the original note were not included. Pediatric Discharge Summary Attending Physician: Tory Jin MD Office 01/16/2023 4:15 PM Pt. Name: Mae Frances : 2000 Attending Physician : Tory Jin MD Admission Date: 01/14/2023 Discharge Date: 01/16/2023 Hospital Course Mae Frances is a 22 yo female with PMH significant for chronic constipation, anxiety, OCD, and bipolar disorder who was admitted for 2 weeks of constipation and concern for fecal impaction and bowel incontinence. On exam, a large stool ball was noted to the right of the umbilicus and moderatestool burden with non obstructive gas pattern was noted on KUB. Mae preferred an inpatient clean out. NG tube was attempted to be placed for the clean out, but Mae pulled it out and was started on oral Golytely for fecal impaction. She received Tylenol and ibuprofen for pain control andwas placed on maintenance IVF. She began stooling during the evening of 01/15/23, and the stool ballwas significantly decreased in size on 01/16. A nutrition consult was completed to discuss dietary habits and a high fiber diet with Mae. Augmentin was started due to recent diagnosis of dental abscess. She is in the middle of a ten day course started on 01/11/23 after diagnosis at an urgent care facility. Information for outpatient GI follow up provided. Miralax prescribed on discharge, constipation plan provided by pharmacy. Patient to use 17g Miralax three times a day for the first few days, followed by BID vs daily depending on stool frequency. Senna for 1 week and as needed thereafter. Patient verbalized understanding. Discharge Diagnosis(es) Active Problems: Constipation, unspecified constipation type Dental abscess Mental health-related complaint Resolved Problems: * No resolved hospital problems. * Condition on Discharge: Improved Consultations: Clinical Sewage Disposal Worker Diagnostic studies: - See Hospital Course Procedures: None Relevant Labs: BMP WNL, TSH WNL at 1.020, IgA WNL at 184. UA and TTG are still pending. KUB at ED showed nonobstructive bowel gas pattern with moderate colonic stool. Discharge Physical Exam VS: BP 102/64 Pulse 86 Temp 97.8 ??F (Oral) Resp 18 Ht 1.66 m (5' 5.35 ) Wt 46.4 kg (102 lb 4.7 oz) SpO2 97% Height: 166 cm (5' 5.35 ) Facility age limit for growth %radha is 20 years. Weight: 46.4 kg (102 lb 4.7 oz) Facility age limit for growth %radha is 20 years. General: awake, alert, no apparent distress, talkative, eating Eyes: EOM: normal Conjunctiva: conjunctiva normal Discharge: none Eyelids: normal Mouth / Oropharynx: Mucous membranes: moist Dentition: dental abscesses (Erosions noted in the upper left quadrant of bottom right molar) Neck: ROM: normal range of motion Thyroid: normal Cardiovascular: Rate: regular Rhythm: regular Heart sounds: normal S1, normal S2 Murmur: no murmur Pulmonary: Auscultation: clear to auscultation Aeration: good aeration Respiratory effort: no respiratory distress Abdominal: soft Tenderness: none Distention: none Stool ball now in the LLQ has significantly decreased in size from admission. Musculoskeletal: Lower extremities: Swelling: none Skin: Temp / Texture: warm Color: normal Neurological: Orientation: oriented to person, place and time Pending Results Unresulted Labs (From admission, onward) Start Ordered 01/16/23 0400 TISSUE TRANSGLUTAMINASE AB IGA NEXT AM (0400) Question: Release to patient Answer: Immediate 01/15/23 1453 01/15/23 0530 URINALYSIS W/MICROSCOPIC REFLEX TO CULTURE ONCE Question: Release to patient Answer: Immediate 01/15/23 0527 Discharge Medications Current Discharge Medication List UNREVIEWED MEDICATIONS Instructions Authorizing Provider buPROPion 75 MG tablet Commonly known as: Wellbutrin Take 1 (one) tablet by mouth 2 times daily START taking these medications Instructions Authorizing Provider senna 8.6 MG tablet Commonly known as: Senokot Quantity Dispensed: 28 tablet Notes to patient: Use once a day for 2-3d following hospitalization for acute constipation then begin to use as neede Take 2 (two) tablets by mouth once daily as needed For constipation (no stool >48h) despite regular use of miralax or other stool softener. Tory Jin MD CONTINUE taking these medications which have NOT CHANGED Instructions Authorizing Provider amoxicillin-clavulanate 875-125 MG tablet Commonly known as: Augmentin Take 1 (one) tablet by mouth 2 times daily with morning and evening meal polyethylene glycol 3350 17 GM/SCOOP powder Commonly known as: Miralax Quantity Dispensed: 255 g Take 17 (seventeen) g by mouth 3 times daily Cory Mcgee MD Discharge Procedure Orders Why you were hospitalized Order Specific Question Answer Comments Your discharge diagnosis is: Constipation [[id number]] Follow up with Primary Care Provider (PCP) Our records show your Primary Care Provider (PCP) is Carroll Meléndez MD. Additional Scheduling Instructions: Readmission Risk Score: N/A. 0-20 = Low/Moderate Risk - Follow up within 14 days 21-100 = High Risk - Follow up within 5 days Order Specific Question Answer Comments Follow Up Instructions for Patient: Within 5 Days from Discharge Activity as tolerated Rest today, and increase activity level tomorrow as tolerated. Special diet instructions High fiber containing food Follow up with provider Additional Scheduling Instructions: Readmission Risk Score: N/A. 0-20 = Low/Moderate Risk - Follow up within 14 days 21-100 = High Risk - Follow up within 5 days Order Specific Question Answer Comments Follow Up Instructions for Patient: Within 14 Days from Discharge Medication instructions Please take 17g of Miralax mixed in with 8 oz of fluid three times a day Take Senna if you do not have bowel movements for 48 hours while on Miralax When to call provider Call Mae's primary care physician if you have questions or concerns, or for any of the following issues: -- increased shortness of breath -- for pain that gets worse or does not get better after taking pain medication(s) as directed -- if you see a lot of bleeding from the incision or IV site -- if the incision or IV site looks infected (red, swollen, warm to the touch, or non-clear, foul-smelling drainage) -- if Mae has nausea or vomiting or cannot eat or drink Special instructions Please call your psychiatrist to schedule an appointment Gypsy Hendrickson CC: Carroll Meléndez MD [address] [place] [address] Phone: [phone] Fax: [phone] Associated attestation - Tory Jin MD - 01/16/2023 10:23 PM CDT Hospital Discharge Attestation Patient was seen and discussed with the resident. I independently examined patient. Agree with the evaluation and management plan of the resident. Discharge instructions were given. Date of service: 01/16/2023 Tory Jin MD documented in this encounter Medications at Time of Discharge Medication Sig Dispensed Refills Start Date End Date amoxicillin-clavulanat e (Augmentin) 875-125 MG tablet Take 1 (one) tablet by mouth 2 times daily with morning and evening meal 01/11/2023 buPROPion (Wellbutrin) 75 MG tablet Take 1 (one) tablet by mouth 2 times daily 10/10/2021 polyethylene glycol 3350 (Miralax) 17 GM/SCOOP powder Take 17 (seventeen) g by mouth 3 times daily 255 g 3 01/16/2023 senna (Senokot) 8.6 MG tablet Take 2 (two) tablets by mouth once daily as needed For constipation (no stool >48h) despite regular use of miralax or other stool softener. 28 tablet 01/16/2023 documented as of this encounter Progress Notes * Bhavna Dale - 01/16/2023 2:17 PM CDT Nutrition Brief Note Met with Mae and mom at bedside today. Pt wanted to discuss foods she should be eating when she goes home. Pt reported that she wanted to cut out all dairy because that is what made her sick, but those are her favorite foods. Team has not made recommendations to eliminated dairy from diet. Pharmacist and med student present during visit. - Discussed diary-free / dairy alternatives to include in her meals - Discussed taking Lactaid when wanting to have dairy items (ice cream and cheese) - Encouraged Mae to enjoy her meals and listen to her body when she needs to have dairy alternatives - Encouraged intake of fluids and fiber when she goes home Bhavna Dale, Clothes Designer Cristin Perez RD/MANUELA [employer] [phone] * Gypsy Hendrickson - 01/16/2023 12:50 PM CDT Condition on Discharge: Improved Consultations: Clinical Sewage Disposal Worker Diagnostic studies: - See Hospital Course Procedures: None Relevant Labs: BMP WNL, TSH WNL at 1.020, IgA WNL at 184. UA and TTG are still pending. KUB at ED showed nonobstructive bowel gas pattern with moderate colonic stool. Discharge Physical Exam VS: BP 102/64 Pulse 86 Temp 97.8 ??F (Oral) Resp 18 Ht 1.66 m (5' 5.35 ) Wt 46.4 kg (102 lb 4.7 oz) SpO2 97% Height: 166 cm (5' 5.35 ) Facility age limit for growth %radha is 20 years. Weight: 46.4 kg (102 lb 4.7 oz) Facility age limit for growth %radha is 20 years. General: awake, alert, no apparent distress, talkative, eating Eyes: EOM: normal Conjunctiva: conjunctiva normal Discharge: none Eyelids: normal Mouth / Oropharynx: Mucous membranes: moist Dentition: dental abscesses (Erosions noted in the upper left quadrant of bottom right molar) Neck: ROM: normal range of motion Thyroid: normal Cardiovascular: Rate: regular Rhythm: regular Heart sounds: normal S1, normal S2 Murmur: no murmur Pulmonary: Auscultation: clear to auscultation Aeration: good aeration Respiratory effort: no respiratory distress Abdominal: soft Tenderness: none Distention: none Stool ball now in the LLQ has significantly decreased in size from admission. Musculoskeletal: Lower extremities: Swelling: none Skin: Temp / Texture: warm Color: normal Neurological: Orientation: oriented to person, place and time * Neymar Tilley RN - 01/16/2023 6:13 AM CDT Problem: Pain/Discomfort Description: KASHIF Wall's complaints of abdominal pain Goal: Patient exhibits reduced pain/discomfort as evidenced by pain scores Description: Mae will report decreased pain scores at a 5/10 during her admission Outcome: Progressing Note: Mae expressed that her pain scores have decreased in comparison to her pain scores on admission. Problem: Fall Risk Goal: Fall risk and fall related injury risk are minimized (interventions related to the fall risk can be found in the flowsheet documentation) Outcome: Progressing * Bhavna Dale - 01/15/2023 3:24 PM CDT Initial Nutrition Assessment Mae Frances is a 22 year old female seen for consult for high fiber diet education. The primary encounter diagnosis was Lower abdominal pain. A diagnosis of Constipation, unspecified constipation type was also pertinent to this visit. Past Medical History: Diagnosis Date ??? ADHD (attention deficit hyperactivity disorder) ??? Aggression ??? Bipolar affective (CMS/HCC) ??? Constipation, chronic ??? Headache(784.0) started approximately 2 years ago ??? Learning disability ??? ODD (oppositional defiant disorder) ??? S/P colonoscopy age 6y/o ??? Sensory integration disorder Assessment: Met with pt at bedside. Pt reported that she typically snacks throughout the day, and only has a meal at dinner. Her uncle does most of the cooking and grocery shopping for her. She enjoys foods including tortillas with cheese, chips, ice cream, pasta, 2% milk, pineapple juice, and water. Pt reported that she remembers her last BM being over a week ago and that it was painful before. She expressed current pain and cramping in her lower abdomen and having the urge to use the restroom. When she gets to the restroom, that urge goes away. Pt reported that she feels like she eats a lot of foods that aren't good for her stomach, but they are foods that she enjoys. Current nutrition order: Orders Placed This Encounter Procedures ??? DIET CLEAR LIQUID Standing Status: Standing Number of Occurrences: 1 Anthropometrics: Weight: 46.4 kg (102 lb 4.7 oz) Facility age limit for growth %radha is 20 years. Height: 166 cm (5' 5.35 ) Facility age limit for growth %radha is 20 years. BMI: Body mass index is 16.84 kg/m??. Recent Weights/Methods 08/19/2012 1407 04/13/2016 1026 09/17/2018 1411 05/26/2019 1102 01/16/2022 1619 04/19/2022 1409 01/14/2023 2148 01/15/2023 0127 Weight: 27.4 kg (60 lb 4.8 oz) 32.3 kg (71 lb 3.3 oz) 43.8 kg (96 lb 9 oz) 44.9 kg (98 lb 15.8 oz) 45.4 kg (100 lb) 52.2 kg (115 lb) 47.1 kg (103 lb 13.4 oz) 46.4 kg (102 lb 4.7 oz) Weight Method (Utilize Scales): -- -- -- Standing Stated Stated -- Standing Pt weight has been stable for the past few years. Weight variance has been noted through stated weights. Labs/Tests/Procedures Recent Labs Component Name 01/14/23 2342 04/19/22 1502 01/16/22 1710 SODIUM - - 141 POTASSIUM 3.5 3.2* 3.6 CHLORIDE - - 109* CO2 24 24 24 BUN 7 13 10 CREATININE 0.74 0.72 0.73 GLUCOSE 79 83 88 CALCIUM 9.7 9.2 8.7 EGFR >90 >90 >90 Medications: Current Facility-Administered Medications Medication ??? ibuprofen (Motrin) tablet 400 mg Or ??? acetaminophen (Tylenol) tablet 500 mg ??? amoxicillin-clavulanate (Augmentin) tablet 875 mg ??? dextrose 5 % and 0.9% NaCl infusion ??? polyethylene glycol (Golytely) solution 240 mL Estimated Needs: KCAL: 1850 kcals (raimundo x 1.5) Protein (g): 0.8g/kg Fluid (ml): Tionesta-Segfelipa Needs based on: Raimundo (x 1.5) Recommended Access Route: PO Education needed: High Fiber Education Provided: Yes;Handout Provided Expected level of compliance: Fair Nutrition Care Process (1) Nutrition Diagnostic Statement: Altered gastrointestinal function related to:: altered GI motility as evidenced by:: feeding intolerance with constipation Nutrition Intervention: Meals and snacks:;Nutrition Education - Content - Continue with clear liquid diet Advance to regular diet when appropriate -Education and handout were provided on high fiber diet Discussed including more fruits and vegetables Discussed replacing pastas and tortillas with whole grain pasta and tortillas Encouraged pt to try new foods that are high in fiber Encouraged pt to discuss and share foods list with her Uncle to help with purchasing and preparation of high fiber meals - obtain weekly weights during admission Monitoring: - BM, labs, weight, PO intake when diet is advanced Evaluation: Nutrition Goal: Gastrointestinal symptoms will be improved Nutrition Goal Timeframe: Ongoing Nutrition Goal Progress: New goal established Bhavna Dale, Clothes Designer Cristin Perez RD/MANUELA Ascom [phone] * Gypsy Hendrickson - 01/15/2023 12:58 PM CDT Mae Frances is a 22 yo female with PMH significant for chronic constipation, anxiety, OCD, and bipolar disorder who was admitted for 2 weeks of constipation and concern for fecal impaction and bowel incontinence. On exam, a large stool ball was noted to the right of the umbilicus and moderatestool burden with non obstructive gas pattern was noted on KUB. Mae preferred an inpatient clean out. NG tube was attempted to be placed for the clean out, but Mae pulled it out and was started on oral Golytely for fecal impaction. She received Tylenol and ibuprofen for pain control andwas placed on maintenance IVF. She began stooling during the evening of 01/15/23, and the stool ballwas significantly decreased in size on 01/16. A nutrition consult was completed to discuss dietary habits and a high fiber diet with Mae. Augmentin was started due to recent diagnosis of dental abscess. She is in the middle of a ten day course started on 01/11/23 after diagnosis at an urgent care facility. Information for outpatient GI follow up provided. Miralax prescribed on discharge, constipation plan provided by pharmacy. Patient to use 17g Miralax three times a day for the first few days, followed by BID vs daily depending on stool frequency. Senna for 1 week and as needed thereafter. Patient verbalized understanding. * Pita Chiu RN - 01/15/2023 10:32 AM CDT Case Management Pediatric Initial Assessment Case Management screen completed Lives with: Friend(s) Family Support (name and phone): Extended Emergency Contact Information Primary Emergency Contact: JESSICA DONALDSON Mobile Relation: Friend Secondary Emergency Contact: WOLFGANG GOLDMAN Mobile Relation: Aunt Anticipated Discharge Date: 01/16/23 Prior Level of Functioning: Age appropriate Discharge Plan:to home Transportation at Discharge: family Equipment at Home: none SW Referral: No Comments: Will continue to follow. For any questions or needs please contact: Bevel Operator Name/Phone number: Pita Chiu RN * Neymar Tilley RN - 01/15/2023 6:41 AM CDT Problem: Pain/Discomfort Description: AEB Mae's complaints of abdominal pain Goal: Patient exhibits reduced pain/discomfort as evidenced by pain scores Description: Mae will report decreased pain scores at a 5/10 during her admission Outcome: Progressing Note: Mae reported decrease pain scores and was able to sleep through the night Goal: Patient uses pharmacological and non-pharmacological pain management strategies. Outcome: Progressing Goal: Patient verbalizes acceptable level of pain relief and ability to engage in desired activity. Outcome: Progressing * Jeaneth Ontiveros MD - 01/15/2023 4:53 AM CDT Chief Complaint Constipation (Pt was Urgent Care 2 days. Pt has been impacted in the past. She is tearful at desk. No vomiting. Pt has no appetite today. She has tried multiple OTC medications with no results. Pt has been leaking stool. Pt feeling anxious and is concerned she will have an anxiety attack she has tohave a bowel clean out and is requesting medication prior to any procedure.) History of Present Illness History provided by: Patient and Mother Mae is a 22 year old female with a hx of anxiety, ODD, bipolar and chronic constipation here for concerns for fecal impaction and bowel incontinence which started this week. Mae Guerrero has had a hx of chronic constipation since 2012 with evaluations by GI in 2016 - rectal biopsy and barium enema - scans unavailable, who has been on laxatives intermittently and erratically - now with no stools since the last two weeks as per parent. Per Yolanda she doesn't remember when she last stooled and when she does try she has moderate to severe pain. No hx of blood in stools, dysuria. Does have intermittent abdominal pain - diffuse while attempting to defecate. Has tried miralax, lactulose and fibre pills in the past to no avail but also admits to forgettingto take those meds and I am not a pill taker In the ED - refusal to try laxative outpatient as well as refusing enema/miralax while in the ER.Patient and parent requesting for inpatient treatment and bowel cleanout. NG tube placement discussed and patient agreeable to the same for Golytely bowel cleanout. Placed on IV fluids. Urine HCG nega tive. Patient admitted for Golytely administration for bowel cleanout in the setting of fecal impaction and chronic constipation. On the floors - NG tried but unsuccessful since patient pulled the tube out after it as placed - saying that she feels like shes choking. Would like to trial the same orally PMHx: Hx of psychiatric issues - was previously on medication but not anymore as she is not a pilltaker ; Followed by GI for chronic constipation but lost to follow up; rectal suction biopsy in 2008 - benign but FL barium - suspicious for short segment hirschsprung Past menstrual hx:: Had an implant - contraceptive - removed a few months ago but has only has spotting since. Does not remember LMP Diet Hx: snacks throughout the day - likes to eat pizza, pasta, candy. 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 S: No SI/HI Review of Systems Constitutional: (-) fever, (-) fatigue, (-) appetite change, (-) weight loss, (- ) weight gain Eyes: (-) eye redness, (-) eye itching ENT: Ears: (-) ear pain, (-) ear discharge Nose: (-) rhinorrhea, (-) congestion and Throat: (-) mouth sores, (-) sore throat and Cardiovascular: (-) chest pain, (-) palpitations Respiratory: (-) cough, (-) wheezing Gastrointestinal: (-) vomiting, (-) diarrhea, (+) constipation, (+) abdominal pain, (+) bowel incontinence Genitourinary: (-) decreased urine output, (-) frequency, (-) dysuria Endocrine: (+) cold intolerance Physical Exam VS: BP 125/76 Pulse 74 Temp 98.2 ??F (Oral) Resp 18 Ht 1.66 m (5' 5.35 ) Wt 46.4 kg (102 lb 4.7 oz) SpO2 97% Height: 166 cm (5' 5.35 ) Facility age limit for growth %radha is 20 years. Weight: 46.4 kg (102 lb 4.7 oz) Facility age limit for growth %radha is 20 years. General: awake, alert, smiling, talkative Head: normocephalic Eyes: Pupils: pupils equal, round, reactive to light EOM: normal Nose: normal Mouth / Oropharynx: Mucous membranes: moist Cardiovascular: Heart sounds: normal S1, normal S2 Pulmonary: Auscultation: clear to auscultation Aeration: good aeration Abdominal: soft, flat Tenderness: generalized Distention: none Skin: Temp / Texture: warm Neurological: Orientation: oriented to person, place and time Labs / Results BMP normal Hcg neg UA to be collected * Lennie Mays CNA - 01/15/2023 2:37 AM CDT Images from the original note were not included. . Your patient Mae Frances has been admitted to [facility]. Current hospital problems: Constipation, unspecified constipation type For more information, please contact the [facility] Team at [phone] between 6 AM and 5 PM. If information is needed after hours, call [phone]. Or, the attending provider Tory Jin MD can be paged at [phone]. You will receive a phone call from a team psychologist regarding any escalation of care and at discharge. documented in this encounter H&P Notes * Naila Long MD - 01/15/2023 5:33 AM CDT Images from the original note were not included. Pediatric Admission Note 01/15/2023 5:33 AM Chief Complaint Constipation (Pt was Urgent Care 2 days. Pt has been impacted in the past. She is tearful at desk. No vomiting. Pt has no appetite today. She has tried multiple OTC medications with no results. Pt has been leaking stool. Pt feeling anxious and is concerned she will have an anxiety attack she has tohave a bowel clean out and is requesting medication prior to any procedure.) History of Present Illness History provided by: Patient and Mother Mae is a 22 year old female with a hx of anxiety, ODD, bipolar and chronic constipation here for concerns for fecal impaction and bowel incontinence which started this week. Mae Guerrero has had a hx of chronic constipation since 2012 with evaluations by GI in 2016 - rectal biopsy and barium enema - scans unavailable, who has been on laxatives intermittently and erratically - now with no stools since the last two weeks as per parent. Per Yolanda she doesn't remember when she last stooled and when she does try she has moderate to severe pain. No hx of blood in stools, dysuria. Does have intermittent abdominal pain - diffuse while attempting to defecate. Has tried miralax, lactulose and fibre pills in the past to no avail but also admits to forgettingto take those meds and I am not a pill taker In the [facility] - refusal to try laxative outpatient as well as refusing enema/miralax while in the ER.Patient and parent requesting for inpatient treatment and bowel cleanout. NG tube placement discussed and patient agreeable to the same for Golytely bowel cleanout. Placed on IV fluids. Urine HCG nega tive. Patient admitted for Golytely administration for bowel cleanout in the setting of fecal impaction and chronic constipation. On the floors - NG tried but unsuccessful since patient pulled the tube out after it as placed - saying that she feels like shes choking. Would like to trial the same orally PMHx: Hx of psychiatric issues - was previously on medication but not anymore as she is not a pilltaker ; Followed by GI for chronic constipation but lost to follow up; rectal suction biopsy in 2009 - benign but FL barium - suspicious for short segment hirschsprung Past menstrual hx:: Had an implant - contraceptive - removed a few months ago but has only has spotting since. Does not remember LMP Diet Hx: snacks throughout the day - likes to eat pizza, pasta, candy. 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 S: No SI/HI Review of Systems Constitutional: (-) fever, (-) fatigue, (-) appetite change, (-) weight loss, (- ) weight gain Eyes: (-) eye redness, (-) eye itching ENT: Ears: (-) ear pain, (-) ear discharge Nose: (-) rhinorrhea, (-) congestion and Throat: (-) mouth sores, (-) sore throat and Cardiovascular: (-) chest pain, (-) palpitations Respiratory: (-) cough, (-) wheezing Gastrointestinal: (-) vomiting, (-) diarrhea, (+) constipation, (+) abdominal pain, (+) bowel incontinence Genitourinary: (-) decreased urine output, (-) frequency, (-) dysuria Endocrine: (+) cold intolerance Physical Exam VS: BP 125/76 Pulse 74 Temp 98.2 ??F (Oral) Resp 18 Ht 1.66 m (' 5.35 ) Wt 46.4 kg (102 lb 4.7 oz) SpO2 97% Height: 166 cm (5' 5.35 ) Facility age limit for growth %radha is 22 years. Weight: 46.4 kg (102 lb 4.7 oz) Facility age limit for growth %radha is 22 years. General: awake, alert, smiling, talkative Head: normocephalic Eyes: Pupils: pupils equal, round, reactive to light EOM: normal Nose: normal Mouth / Oropharynx: Mucous membranes: moist Cardiovascular: Heart sounds: normal S1, normal S2 Pulmonary: Auscultation: clear to auscultation Aeration: good aeration Abdominal: soft, flat Tenderness: generalized Distention: none Skin: Temp / Texture: warm Neurological: Orientation: oriented to person, place and time Labs / Results BMP normal Hcg neg UA to be collected History Past Medical History: Diagnosis Date ??? ADHD (attention deficit hyperactivity disorder) ??? Aggression ??? Bipolar affective (CMS/HCC) ??? Constipation, chronic ??? Headache(784.0) started approximately [...] Other Cousin with chronic constipation Social History Tobacco Use ??? Smoking status: Never Passive exposure: Current ??? Smokeless tobacco: Never Vaping Use ??? Vaping status: Every Day Substance Use Topics ??? Alcohol use: No ??? Drug use: No No history on file. Allergies Tegretol [carbamazepine] and Stimulant laxative [bisacodyl] Immunizations stated as current, but no records available Medications Prior to Visit Current Medications atomoxetine (STRATTERA) 25 MG capsule Take by mouth every morning cloNIDine (CATAPRES) 0.1 MG tablet Take 1 tablet by mouth at bedtime docusate sodium (COLACE) 100 MG capsule Take 1 capsule by mouth once daily polyethylene glycol 3350 (MIRALAX) powder Take 17 g by mouth 3 times daily sertraline (ZOLOFT) 100 MG tablet Take 1 Tab by mouth 2 times daily. Assessment & Plan Constipation, unspecified constipation type Assessment: Mae is a 22 year old female with a hx of anxiety, bipolar disorder, ODD, aggression and chronic constipation here for persistent constipation with last bowel movement about two weeks ago. Patient seen at two days ago for the same with complaints of leaking of stool, as well as d iffuse abdominal pain associated with dyschezia. On evaluation [...] - Admit to General Medicine - Dr Jin - [facility] Team - Attempted NG placement which patient [...] pain/crmaping - Vitals q8h - Full code MD Naila Keating MD Associated attestation - Tory Jin MD - 01/15/2023 1:35 PM CDT Date of Service: 01/15/2023 Mae was seen and her condition discussed on rounds with the resident/student team. 22 yo female with PMH of chronic constipation, ODD, anxiety and bipolar disorder. C/o no stools for 2 weeks and abdominal pain. Has not take miralax, lactulose or fiber pills because doesn't like to take pills. The same reason she has not taken her psych medications. Refused miralax and enema in ED. NG placed and pt pulled out. And states she will take Golytely by mouth. Needs admission for bowel cleanout. Since admission, drinking small amounts of Golytely, still c/o abd pain. Exam: (seen on rounds at 9:20 AM) Exam - anxious and tearful SHEENT - no rash Lungs - CTA Heart - RRR w/o murmur Abd - LLQ tenderness, palpable stool mass LLQ Ext - no edema Agree with resident's assessment and plan. The treatment plan was discussed with team and is as noted below. Constipation, unspecified constipation type Assessment: Mae is a 22 year old female with a hx of anxiety, bipolar disorder, ODD, aggression and chronic constipation here for persistent constipation with last bowel movement about two weeks ago. Patient seen at two days ago for the same with complaints of leaking of stool, as well as d iffuse abdominal pain associated with dyschezia. On evaluation in the ER - refusing enema/Miralax outpatient treatment and requesting admission for inpatient oral/nasogastric Golytely use - bowel cleanout. KUB with large stool burden and exam consistent with stool mass in the sigmoid colon. Previously followed but lost to f/u. In 2011 rectal suction bx - with ganglion cell present; but FLbarium - suspicious for short segment Hirschsprung. In the setting of refusal of outpatient therapy for chronic constipation and possible fecal impaction patient will be admitted for administration of Golytely for a bowel cleanout. Plan: - Admit to General Medicine - Dr Jin - [facility] Team - Attempted NG placement which patient agreed to initially but declining the same now after trial to place the same - wants to attempt oral Golytely - For oral administration of oral golytely solution in the setting of a bowel cleanout - goal: 240 mL q1h for a target of 4 litres - Patient is willing to trial NG placement again with use of anxiolytic - Consult to Nutrition in the setting of poor dietary habits - Gastroenterology consult - check TSH and CBC (constipation and cold intolerance) - UA with reflex to culture in view of chronic constipation and localized lower abdominal pain - Diet clear liquid while on Golytely - On mIVF - 90ml.hr - D5NS - Tylenol/Ibuprofen q6h PRN for abdominal pain/crmaping - Vitals q8h - Full code documented in this encounter ED Notes * Manju eMyer MD - 01/14/2023 11:34 PM CDT EMERGENCY DEPARTMENT 01/14/2023 Dear Doctor, We had the pleasure of caring for your patient, Mae Frances in our emergency department on 01/14/2023. A note from the provider(s) who cared for your patient is attached. Should you wish to access any laboratory results, please call . Should you wish to access any radiology results, please call , option 3. In addition, you can access patient information 24 hours a day, from any computer, through [employer], the online version of our electronic medical record. If you would like to use this service, please call Jadyn Zazueta, Connectivity Coordinator, at . We appreciate the opportunity to care for your patients. If you would like additional information, please call the emergency department directly at . Sincerely, Dr. Meyer Division of Emergency Medicine [facility], [place] [facility] [place] EMERGENCY DEPARTMENT Provider contact with the patient: 01/14/2023 11:34 PM Mae Frances [id number] [facility] EMERGENCY DEPARTMENT History Chief Complaint Patient presents with ??? Constipation Pt was Urgent Care 2 days. Pt has been impacted in the past. She is tearful at desk. No vomiting. Pt has no appetite today. She has tried multiple OTC medications with no results. Pt has been leakingstool. Pt feeling anxious and is concerned she will have an anxiety attack she has to have a bowel clean out and is requesting medication prior to any procedure. Chief complaint narrative was entered by triage nurse, not by physician. History of Present Illness HPI provided per: patient, mother, EMR Mae Frances is a 22 year old female with history of chronic constipation, ADHD, bipolar disorder, ODD, and aggression who presents with constipation. Pt reports that she has been feeling veryconstipated recently (she is not sure when it started). She keeps trying to pass stool but nothing comes out. She cannot remember when her last bowel movement was, but mom thinks it was about 1.5 weeks ago. She thinks she had fecal incontinence/leaking stool yesterday or today. Her appetite has been decreased, and she is not sure when that started. She reports that she did not eat anything today.She is still drinking normally and urinating a normal amount, but she notes that sometimes it is difficult to urinate because her lower abdomen feels blocked. She denies vomiting. She was seen at an urgent care center two days ago and had an abdominal xray that reportedly showed constipation. She took almost a whole bottle of mag citrate yesterday, as well as a dose of Miralax and some black coffee and some apple cider vinegar; she took 30 mL of lactulose (prescribe at urgent care) once today. Mom reports that pt has been constipated her whole life, and the medications that she has tried (including Miralax and enemas) do not work for her. Mom reports that dairy foods tend to worsen pt's constipation because she is lactose intolerant. Pt was previously followed by GI at (but has not been seen since 2016 per EMR). PMH: history of chronic constipation, ADHD, bipolar disorder, ODD, and aggression; no surgeries; all immunizations up-to-date per mother (including COVID vaccine). Allergies Allergen Reactions ??? Tegretol [Carbamazepine] Rash ??? Stimulant Laxative [Bisacodyl] Rash Social History Socioeconomic History ??? Marital status: Single Spouse name: Not on file ??? Number of children: Not on file ??? Years of education: Not on file ??? Highest education level: Not on file Occupational History ??? Not on file Tobacco Use ??? Smoking status: Never Passive exposure: Current ??? Smokeless tobacco: Never Vaping Use ??? Vaping status: Every Day Substance and Sexual Activity ??? Alcohol use: [...] on file Transportation Needs: Not on file Stress: Not on file Housing Stability: Not on file Past Medical History: Diagnosis Date ??? ADHD (attention deficit hyperactivity disorder) ??? Aggression ??? Bipolar affective (CMS/HCC) ??? Constipation, chronic ??? Headache(784.0) started approximately 2 years ago ??? Learning disability ??? ODD (oppositional defiant disorder) ??? S/P colonoscopy age 6y/o ??? Sensory integration disorder Family History Problem Relation Name Age of Onset ??? Migraine Mother ??? ADHD Maternal Uncle Also patient's cousin ??? Bipolar Disorder Maternal Uncle Also patient's cousin ??? Other Other Cousin with chronic constipation Medications Current Outpatient Medications Medication Sig Dispense Refill ??? atomoxetine (STRATTERA) 25 MG capsule Take by mouth every morning (Patient not taking: Reportedon 01/14/2023) ??? cloNIDine (CATAPRES) 0.1 MG tablet Take 1 tablet by mouth at bedtime (Patient not taking: Reported on 01/14/2023) 30 tablet 5 ??? docusate sodium (COLACE) 100 MG capsule Take 1 capsule by mouth once daily 30 capsule 0 ??? polyethylene glycol 3350 (MIRALAX) powder Take 17 g by mouth 3 times daily 850 g 5 ??? sertraline (ZOLOFT) 100 MG tablet Take 1 Tab by mouth 2 times daily. (Patient not taking: Reported on 01/14/2023) 60 Tab 0 Review of Systems Negative except as per HPI. Physical Exam Vitals: 01/14/23 2148 01/14/23 2157 BP: 110/62 Pulse: 80 Resp: 24 Temp: 98.4 ??F (36.9 ??C) SpO2: 99% Weight: 47.1 kg (103 lb 13.4 oz) Height: 1.66 m (5' 5.35 ) 1.66 m (5' 5.35 ) Constitutional: adult female in NAD HEENT: head NC/AT, no scleral injection, no drainage from ears or nose, MMM Cardiovascular: RRR, no murmur Pulmonary: Normal respiratory effort. Abdominal: soft, nondistended, +diffusely tender to palpation, +firm mass in lower abdomen (middle and just to left) c/w stool Extremities: WWP Neurological: alert, follows commands, responds to questions, moves all four extremities well Skin: No visible rash or lesions. Nursing notes and vitals reviewed. Procedures Procedures Labs/Orders Orders Placed This Encounter ??? XR ABDOMEN KUB ??? BASIC METABOLIC PANEL (CALCIUM TOTAL) ??? HCG URINE QUAL POCT NOTIFICATION ??? lidocaine buffered 1-8.4 % injection 0.2 mL ??? dextrose 5 % and 0.9% NaCl infusion XR ABDOMEN KUB (Results Pending) Hospital Encounter on 01/14/23 BASIC METABOLIC PANEL (CALCIUM TOTAL) Result Value Ref Range BUN 7 7 - 26 mg/dL Creatinine 0.74 0.56 - 0.96 mg/dL Sodium 139 136 - 145 mmol/L Potassium 3.5 3.5 - 4.5 mmol/L Chloride 105 98 - 107 mmol/L CO2 24 22 - 29 mmol/L Glucose 79 70 - 115 mg/dL Calcium 9.7 8.4 - 10.2 mg/dL Anion Gap 14 8 - 18 BUN/Creatinine Ratio 9 7 - 23 Osmolality Calculated 285 270 - 300 mOsm/kg eGFR by CKD-EPI >90 >=90 mL/min/1.73 m2 ED Course and Medical Decision Making Initial Assessment & Plan: 22 year old female with history of chronic constipation, ADHD, bipolar disorder, ODD, and aggression who presents with constipation. I discussed with pt and mother thatpt's presentation is concerning for stool impaction, and I discussed treatment options, including Fleet enema (mom and pt state that enemas do not work for pt) and PO Miralax cleanout (pt does not feel that this will be effective). Pt would like to be admitted for a GoLytely cleanout via NG tube, although she expresses anxiety that it will be painful when she starts passing stool. Will order a PIV so that pt can receive IV hydration, as well as anxiety medication PRN. I signed out to the supervising floor resident, who evaluated pt in the ED. She requested a KUB prior to admission. Medical Decision Making Differential Diagnoses considered: constipation, stool impaction, ileus MDM The total time providing critical care (excluding time spent for procedures) was: 0 minutes. Clinical Impression and Disposition Final Diagnosis: Final diagnoses: Constipation, unspecified constipation type documented in this encounter Plan of Treatment Not on file documented as of this encounter Procedures Procedure Name Priority Date/Time Associated Diagnosis Comments TISSUE TRANSGLUTAMINASE AB IGA AM Draw 01/16/2023 4:11 AM CDT Lower abdominal pain TSH REFLEX FREE T4 Routine 01/16/2023 4: 10 AM CDT Lower abdominal pain IGA BLOOD Routine 01/16/2023 4:10 AM CDT Lower abdominal pain XR ABDOMEN KUB STAT 01/15/2023 1:07 AM CDT Constipation, unspecified constipation type HCG URINE QUALITATIVE - POCT (IP) INTERFACED Routine 01/15/2023 12:32 AM CDT HCG URINE QUAL POCT NOTIFICATION STAT 01/14/2023 11:56 PM CDT Constipation, unspecified constipation type BASIC METABOLIC PANEL (CALCIUM TOTAL) STAT 01/14/2023 11:42 PM CDT documented in this encounter Results * TISSUE TRANSGLUTAMINASE AB IGA (01/16/2023 4:11 AM CDT) Tissue Transglutaminase (tTG) Ab, IgA <2 0 - 3 U/mL 01/17/2023 11:02 PM CDT [employer] ([facility]) Comment: INTERPRETIVE INFORMATION: Tissue Transglutaminase (tTG) Antibody, IgA 3 U/mL or less: Negative 4-10 U/mL: Weak Positive 11 U/mL or greater: Positive Presence of the tissue transglutaminase (tTG) IgA antibody is associated with glutensensitive enteropathies such as celiac disease and dermatitis herpetiformis. tTG IgA antibody concentrations greater than 40 U/mL usually correlate with results of duodenal biopsies consistent with a diagnosis of celiac disease. For antibody concentrations greater or equal to 4 U/mL but less than or equal to 40 U/mL, additional testing for endomysial (MOISES) IgA concentrations may improve the positive predictive value for disease. Performed By: [employer] [address] [place] [id number] Student Life Dean: Luis Fernando Krishna MD, PhD Blood BLOOD SPECIMEN / Unknown Lab Venipuncture / Unknown 01/16/2023 4:11 AM CDT 01/16/2023 5:23 AM CDT Tory Jin MD LAB - SEROLOGY ORDDaniela AGUILAR Performing Organization Address City/[facility]/ZIP Co de Phone Number [facility] [employer] [address] * IGA BLOOD (01/16/2023 4:10 AM CDT) IgA 184 61 - 356 mg/dL 01/16/2023 5:38 AM CDT [facility] Blood BLOOD SPECIMEN / Unknown Lab Venipuncture / Unknown 01/16/2023 4:10 AM CDT 01/16/2023 5:24 AM CDT Tory Jin MD LAB - CHEMISTRY ORD HUGH Performing Organization Address [facility] Co de Phone Number [address] [address], [facility] [phone] * TSH REFLEX FREE T4 (01/16/2023 4:10 AM CDT) TSH 1.020 0.350 - 4.940 uIU/mL 01/16/2023 5:42 AM CDT [facility] Blood BLOOD SPECIMEN / Unknown Lab Venipuncture / Unknown 01/16/2023 4:10 AM CDT 01/16/2023 5:01 AM CDT Tory Jin MD LAB - CHEMISTRY ORD ERABLES Performing Organization Address [facility] Co de Phone Number [address] [address], [place] [phone] * XR ABDOMEN KUB (01/15/2023 1:07 AM CDT) Anatomical Region Laterality Modality Abdomen Radiographic Melina ging 01/15/2023 8:18 AM CDT Impressions 01/15/2023 8:28 AM CDT IMPRESSION: Nonobstructive bowel gas pattern with moderate colonic stool. > Dictated by Zenaida Aden DO ([facility] [employer]man) 01/15/2023 8:18 AM Xiomy Boyd MD have personally reviewed and interpreted this examination/study. > Interpreting Provider: Xiomy Levy MD on 01/15/2023 8:28 AM Narrative 01/15/2023 8:28 AM CDT PROCEDURE: ??XR ABDOMEN KUB DATE/TIME OF EXAM: ??01/15/2023 1:08 AM CLINICAL INFORMATION: Constipation Indication: K59.00: Constipation, unspecified Additional History: COMPARISON: Abdominal radiograph performed on March 24, 2012. TECHNIQUE: AP view radiograph of the abdomen. FINDINGS: Moderate colonic stool throughout. Single view of the abdomen demonstrates a nonspecific bowel gas pattern with no evidence of obstruction. No mass effect or pathologic calcifications. Mild levoconvex curvature of the lumbar spine. Minimal left inferior pelvic tilt. Procedure Note Xiomy Levy MD - 01/15/2023 PROCEDURE: XR ABDOMEN KUB DATE/TIME OF EXAM: 01/15/2023 1:08 AM CLINICAL INFORMATION: Constipation Indication: K59.00: Constipation, unspecified Additional History: COMPARISON: Abdominal radiograph performed on March 24, 2012. TECHNIQUE: AP view radiograph of the abdomen. FINDINGS: Moderate colonic stool throughout. Single view of the abdomen demonstrates a nonspecific bowel gas pattern with no evidence of obstruction. No mass effect or pathologic calcifications. Mild levoconvex curvature of the lumbar spine. Minimal left inferiorpelvic tilt. IMPRESSION: Nonobstructive bowel gas pattern with moderate colonic stool. > Dictated by Zenaida Aden DO ([employer]) 01/15/2023 8:18 AM Xiomy Boyd MD have personally reviewed and interpreted this examination/study. > Interpreting Provider: Xiomy Levy MD on 01/15/2023 8:28 AM Manju Meyer MD DIAGNOSTIC IMAGING O RDERABLES * HCG URINE QUALITATIVE - POCT (IP) INTERFACED (01/15/2023 12:32 AM CDT) HCG Qual Urine Negative Negative 01/15/2023 12:42 AM CDT [facility] Urine URINE / Unknown 01/15/2023 1 2:32 AM CDT 01/15/2023 12:42 AM CDT Manju Meyer MD LAB - POINT OF CARE ORDERABLES Performing Organization Address City/[facility]/ZIP Co de Phone Number [facility] [address] [place] [address] * HCG URINE QUAL POCT NOTIFICATION (01/14/2023 11:56 PM CDT) Comment Notification Label Only - See Separate Report 01/15/2023 1:30 AM CDT [facility] Urine URINE / Unknown 01/14/2023 1 1:56 PM CDT 01/15/2023 12:03 AM CDT Manju Meyer MD LAB - URINALYSIS ORD ERABLES Performing Organization Address City/[facility]/ZIP Co de Phone Number [facility] [address] [place] [phone] * BASIC METABOLIC PANEL (CALCIUM TOTAL) (01/14/2023 11:42 PM CDT) BUN 7 7 - 26 mg/dL 01/15/2023 12:07 AM [facility] Creatinine 0.74 0.56 - 0.96 mg/dL 01/15/2023 12:07 AM [facility] Sodium 139 136 - 145 mmol/L 01/15/2023 12:07 AM [facility] Potassium 3.5 3.5 - 4.5 mmol/L 01/15/2023 12:07 AM [facility] Chloride 105 98 - 107 mmol/L 01/15/2023 12:07 AM [facility] CO2 24 22 - 29 mmol/L 01/15/2023 12:07 AM [facility] Glucose 79 70 - 115 mg/dL 01/15/2023 12:07 AM [facility] Calcium 9.7 8.4 - 10.2 mg/dL 01/15/2023 12:07 AM [facility] Anion Gap 14 8 - 18 01/15/2023 12:07 AM [facility] BUN/Creatinine Ratio 9 7 - 23 01/15/2023 12:07 AM CDT [facility] Osmolality Calculated 285 270 - 300 mOsm/kg 01/15/2023 12:07 AM CDT [facility] eGFR by CKD-EPI >90 >=90 mL/min/1.7 3 m2 01/15/2023 12:07 AM CDT [facility] Blood BLOOD SPECIMEN / Unknown Venipuncture / Unknown 01/14/2023 11:42 PM CDT 01/14/2023 11:54 PM CDT Manju Meyer MD LAB - CHEMISTRY ERIN AGUILAR [facility] [address] [place] [address], [facility] [phone] documented in this encounter Visit Diagnoses Diagnosis Lower abdominal pain- Primary Abdominal pain, other specified site Constipation, unspecified constipation type Constipation, unspecified constipation type Dental abscess Periapical abscess without sinus Mental health-related complaint * Assessment & Plan Note - Gypsy Hendrickson - 01/16/2023 12:43 PM CDT Associated Problem(s): Mental health-related complaint Assessment: Mae is a 22 yo F [...] as an outpatient with Dr. Lomas at [facility] * Assessment & Plan Note - Gypsy Hendrickson - 01/16/2023 12:36 PM CDT Associated Problem(s): Dental abscess Assessment: Mae is a 22 yo F [...] 875 mg BID while in the admitted * Assessment & Plan Note - Gypsy Hendrickson - 01/15/2023 10:53 AM CDT Associated Problem(s): Constipation, unspecified constipation type Assessment: Mae is a 22 year old female with a hx of anxiety, bipolar disorder, ODD, aggression and chronic constipation here for persistent constipation with last bowel movement about two weeks ago. Patient seen at two days ago for the same with complaints of leaking of stool, as well as d iffuse abdominal pain associated with dyschezia. On evaluation in the ER - refusing enema/Miralax outpatient treatment and requesting admission for inpatient oral/nasogastric Golytely use - bowel cleanout. KUB with large stool burden and exam consistent with stool mass in the sigmoid colon. Previously followed but lost to f/u. In 2011 rectal suction bx - with ganglion cell present; but FLbarium - suspicious for short segment Hirschsprung. In the setting of refusal of outpatient therapy for chronic constipation and possible fecal impaction patient will be admitted for administration of Golytely for a bowel cleanout. Plan: - Admit to General Medicine - Dr Jin - [facility] Team - Attempted NG placement which patient [...] pain/crmaping - Vitals q8h - Full code * Assessment & Plan Note - Jeaneth Ontiveros MD - 01/15/2023 4:38 AM CDTAssociated Problem(s): Constipation, unspecified constipation type Assessment: Mae is a 22 year old female with a hx of anxiety, bipolar disorder, ODD, aggression and chronic constipation here for persistent constipation with last bowel movement about two weeks ago. Patient seen at two days ago for the same with complaints of leaking of stool, as well as d iffuse abdominal pain associated with dyschezia. On evaluation [...] - Admit to General Medicine - Dr Jin - [facility] Team - Attempted NG placement which patient [...] pain/crmaping - Vitals q8h - Full code * Assessment & Plan Note - Jeaneth Ontiveros MD - 01/15/2023 12:33 AM CDT Associated Problem(s): Constipation, unspecified constipation type Assessment: Mae Frances is a 18 year old female with history of ADHD, bipolar disorder, ODD, aggressio who presents with chronic constipation. As per ella Plan: documented in this encounter Administered Medications Inactive Administered Medications - up to 3 most recent administrations Medication Order MAR Action Action Date Dose Rate Site acetaminophen (Tylenol) tablet 500 mg 500 mg, Oral, EVERY 6 HOURS PRN, Mild Pain, Starting on Sat01/15/23 at 0359, Until Sat01/16/23 at 1533, Patient preference for lesser PRN pain meds may be honored when the patient requests a less strong medication, a lower dose, or a less intrusive route of administration when the lesser drug, dose and route have been ordered for the patient. This patient request must be documented in the MAR. $ Given 01/15/2023 8:34 AM CDT 500 mg amoxicillin-clavulanate (Augmentin) tablet 875 mg 875 mg, Oral, 2 TIMES DAILY WITH MEALS, First dose on Sat01/15/23 at 1800, Until Discontinued, Administer with food to decrease GI side effects., Indication for anti-infective therapy: Suspected infection, Site of anti-infective therapy: Other, Other site of infection (free text): dental abscess $ Given 01/16/2023 8:28 AM CDT 875 mg $ Given 01/15/2023 6:14 PM CDT 875 mg dextrose 5 % and 0.9% NaCl infusion 90 mL/hr, Intravenous, CONTINUOUS, Starting on Sat01/14/23 at 2345, Until Sat01/16/23 at 1533 $ New Bag/Syringe 01/16/2023 2:08 AM CDT 90 mL/hr 90 mL/hr Current Rate 01/15/2023 8:34 PM CDT 90 mL/hr 90 mL/hr $ New Bag/Syringe 01/15/2023 12:28 PM CDT 90 mL/hr 90 mL /hr ibuprofen (Motrin) tablet 400 mg 400 mg, Oral, EVERY 6 HOURS PRN, Mild Pain, Starting on Sat01/15/23 at 0359, Until Sat01/16/23 at 1533, Maximum allowable amount = 3200 mg / 24 hours. Patient preference for lesser PRN pain meds may be honored when the patient requests a less strong medication, a lower dose, or a less intrusive route of administration when the lesser drug, dose and route have been ordered for the patient. This patient request must be documented in the MAR. $ Given 01/15/2023 2:26 PM CDT 400 m g polyethylene glycol (Golytely) solution 240 mL 240 mL, Oral, EVERY HOUR, First dose (after last modification) on Sat01/15/23 at 1000, Until Discontinued $ Given 01/16/2023 1:08 PM CDT 240 mL $ Given 01/16/2023 11:48 AM CDT 240 mL $ Given 01/16/2023 11:02 AM CDT 240 mL polyethylene glycol (Golytely) solution 500 mL 500 mL, Oral, EVERY 4 HOURS, First dose (after last modification) on Sat01/15/23 at 0200, Until Discontinued $ Given 01/15/2023 2:55 AM CDT 500 mL senna (Senokot) tablet 17.2 mg 17.2 mg, Oral, 2 TIMES DAILY, First dose on Sat01/15/23 at 2030, Until Discontinued $ Given 01/16/2023 8:28 A M CDT 17.2 mg $ Given 01/15/2023 9:17 PM CDT 17.2 mg documented in this encounter Active and Recently Administered Medications Times are shown in CDT. Scheduled Medication Order 01/14/2023 01/15/2023 01/16/2023 amoxicillin-clavulanate (Augmentin) tablet 875 mg 875 mg, Oral, 2 TIMES DAILY WITH MEALS, First dose on Sat01/15/23 at 1800, Until Discontinued, Administer with food to decrease GI side effects., Indication for anti-infective therapy: Suspected infection, Site of anti-infective therapy: Other, Other site of infection (free text): dental abscess 1814 ($ Given - Provider: Mary Jane Kerr RN) 0828 ($ Given - Provider: Mary Jane Kerr RN) polyethylene glycol (Golytely) solution 240 mL 240 mL, Oral, EVERY HOUR, First dose (after last modification) on Sat01/15/23 at 1000, Until Discontinued 0954 ($ Given - Provider: Mary Jane Kerr RN)1057 ($ Given - Provider: Mary Jane Kerr, RN)1213 ($ Given - Provider: Mary Jane Kerr, RN)1310 ($ Given - Provider: Mary Jane Kerr, RN)1419 ($ Given - Provider: Mary Janecinthya Kerr RN)1508 ($ Given - Provider: Mary Jane Kerr RN)1605 ($ Given - Provider: Mary Jane Kerr RN)1715 ($ Given - Provider: Mary Jane Kerr RN)1814 ($ Given - Provider: Mary Jane Kerr RN)1900 ($ Given - Provider: Neymar Tilley RN)2000 ($ Given - Provider: Neymar Tilley RN)2100 ($ Given - Provider: Neymar Tilley RN)2200 (Not Administered - Provider: Neymar Tilley RN - Reason: Patient sleeping)2300 (Not Administered - Provider: Neymar Tilley RN - Reason: Patient sleeping) 0000 (Not Administered - Provider: Neymar Tilley RN - Reason: Patient sleeping)0100 (Not Administered - Provider: Neymar Tilley RN - Reason: Patient sleeping)0200 (Not Administered - Provider: Neymar Tilley RN - Reason: Patient sleeping)0300 (Not Administered - Provider: Neymar Tilley RN - Reason: Patient sleeping)0443 (Not Administered - Provider: Neymar Tilley RN - Reason: Patient sleeping)0500 (Not Administered - Provider: Neymar Tilley RN - Reason: Patient sleeping)0601 (Not Administered - Provider: Neymar Tilley RN - Reason: Patient sleeping)0715 (Not Administered - Provider: Mary Jane Kerr RN - Reason: Patient sleeping)0800 (Not Administered - Provider: Mary Jane Kerr RN - Reason: Patient sleeping)0910 (Not Administered - Provider: Mary Jane Kerr RN - Reason: Patient sleeping)1008 ($ Given - Provider: Mary Jane Kerr RN)1102 ($ Given - Provider: Mary Jane Kerr RN)1148 ($ Given - Provider: Mary Jane Kerr RN)1308 ($ Given - Provider: Mary Jane Kerr RN)1400 (Due) polyethylene glycol (Golytely) solution 500 mL (CANCELED) 500 mL, Oral, EVERY 4 HOURS, First dose (after last modification) on Sat01/15/23 at 0200, Until Discontinued 0255 ($ Given - Provider: Neymar Tilley RN)0700 (Not Administered - Provider: Mary Jane Kerr RN - Reason: Patient sleeping) senna (Senokot) tablet 17.2 mg 17.2 mg, Oral, 2 TIMES DAILY, First dose on Sat01/15/23 at 2030, Until Discontinued 2116 ($ Given - Provider: Neymar Tilley RN) 0828 ($ Given - Provider: Mary Jane Kerr RN) Continuous Medication Order 01/14/2023 01/15/2023 01/16/2023 dextrose 5 % and 0.9% NaCl infusion 90 mL/hr, Intravenous, CONTINUOUS, Starting on Sat01/14/23 at 2345, Until Sat01/16/23 at 1533 2343 ($ New Bag/Syringe - Provider: Sakina Campuzano RN) 0129 ($ New Bag/Syringe - Provider: Neymar Tilley RN)1228 ($ New Bag/Syringe - Provider: Mary Jane Kerr RN)2034 (Current Rate - Provider: Neymar Tilley RN) 0208 ($ New Bag/Syringe - Provider: Neymar Tilley RN) PRN Medication Order 01/14/2023 01/15/2023 01/16/2023 acetaminophen (Tylenol) tablet 500 mg(Linked Group 1) 500 mg, Oral, EVERY 6 HOURS PRN, Mild Pain, Starting on Sat01/15/23 at 0359, Until Sat01/16/23 at 1533, Patient preference for lesser PRN pain meds may be honored when the patient requests a less strong medication, a lower dose, or a less intrusive route of administration when the lesser drug, dose and route have been ordered for the patient. This patient request must be documented in the OCT. 34 ($ Given - Provider: Mary Jane Kerr RN)1426 (See Alternative - Provider: Mary Jane Kerr RN) ibuprofen (Motrin) tablet 400 mg(Linked Group 1) 400 mg, Oral, EVERY 6 HOURS PRN, Mild Pain, Starting on Sat01/15/23 at 0359, Until Sat01/16/23 at 1533, Maximum allowable amount = 3200 mg / 24 hours. Patient preference for lesser PRN pain meds may be honored when the patient requests a less strong medication, a lower dose, or a less intrusive route of administration when the lesser drug, dose and route have been ordered for the patient. This patient request must be documented in the OCT. 34 (See Alternative - Provider: Mary Jane Kerr RN)1426 ($ Given - Provider: Mary Jane Kerr RN) Linked Groups Order Group 1: ibuprofen (Motrin) tablet 400 mgJump to med 400 mg, Oral, EVERY 6 HOURS PRN, Mild Pain, Starting on Sat01/15/23 at 0359, Until Sat01/16/23 at 1533, Maximum allowable amount = 3200 mg / 24 hours. Patient preference for lesser PRN pain meds may be honored when the patient requests a less strong medication, a lower dose, or a less intrusive route of administration when the lesser drug, dose and route have been ordered for the patient. This patient request must be documented in the MAR. Or acetaminophen (Tylenol) tablet 500 mgJump to med 500 mg, Oral, EVERY 6 HOURS PRN, Mild Pain, Starting on Sat01/15/23 at 0359, Until Sat01/16/23 at 1533, Patient preference for lesser PRN pain meds may be honored when the patient requests a less strong medication, a lower dose, or a less intrusive route of administration when the lesser drug, dose and route have been ordered for the patient. This patient request must be documented in the MAR. documented in this encounter Care Teams Director Global Sales Relationship Specialty Start Date End Date Carroll Meléndez MD [address] [place], [place] [id number] PCP - General Internal Medicine 01/03/23 03/24/23 documented as of this encounter
--- OUTSIDE RECORDS SUMMARY | 2024-08-02 02:36 | XMS_ITS | Encounter Summary ---
Author Organization [facility] Address [address] [place] [address] Care Team Providers Care Leisure Studies Professor Name Role Phone Geo Goyal MD Primary Care Provider [phone] Reason for Visit * Reason Onset Date Comments Update 02/12/2012 Encounter Details Date Type Department Care Team (Late st Contact Info) Description 02/12/2012 Telephone [facility] - [address] [place] [address] Barry Hernandez MD [facility] [place] [address] Update Social History Tobacco Use Types Packs/Day [...] Telephone Encounter - Chastity Herrera RN - 02/13/2012 10:50 AM CDT Reached mom, she reports that pt is sitting on the toilet & having some stools, but also admitsthat pt is fighting me on taking her meds & sitting . Mom does not feel that pt is getting impacted at this point. Mom still willing to have pt go to [facility], still feels that this reinforcement would be beneficial to herself & pt. Will let Dr. Hernandez & school social worker know. * Telephone Encounter - Chastity Herrera RN - 02/12/2012 1:13 PM CDT Per [facility], [facility] is asking if pt should remain on their waiting list. Called mom on 02/10--no answer @ home number & no option to LM. Called again today, no answer butdid get machine & LM to call us with update. documented in this encounter Plan of Treatment Not on file documented as of this encounter Visit Diagnoses Not on filedocumented in this encounter Care Teams Leisure Studies Professor Relationship Specialty Start Date End Date Geo Goyal MD [address] [place] [id number] PCP - General 08/24/09 01/15/22 documented as of this encounter
--- OUTSIDE RECORDS SUMMARY | 2024-08-02 02:36 | XMS_ITS | Patient Health Summary ---
Author Organization [facility] Address [address] [place] [address] Care Team Providers Care Gear Cutter Name Role Phone None, Physician Primary Care Provider Unavailabl e Note from [facility],non-owned Affiliates and Associated Physician Practices is amultiple site organization consisting of ambulatory clinics and hospital sitesin [place], [place], [place] and [place]. This disclosure is being madepursuant to the Care Everywhere program and may not contain all information available regarding this patient. Last updated 18.[facility] Allergies * Bisacodyl(Rash) -Medium Criticality * Carbamazepine(Rash) Medications * Be aware that medications may not be up to date on this document. Alwaysverify current medications with the patient. * buPROPion (Wellbutrin) 75 MG tablet(Started 10/10/2021) Take 1 (one) tablet by mouth 2 times daily * amoxicillin-clavulanate (Augmentin) 875-125 MG tablet(Started 01/11/2023) Take 1 (one) tablet by mouth 2 times daily with morning and evening meal * polyethylene glycol 3350 (Miralax) 17 GM/SCOOP powder(Started 01/16/2023) Take 17 (seventeen) g by mouth 3 times daily 3 refills by 01/16/2024 * senna (Senokot) 8.6 MG tablet(Started 01/16/2023) Take 2 (two) tablets by mouth once daily as needed For constipation (no stool >48h) despite regular use of miralax or other stool softener. Active Problems Problem Noted Date Diagnosed Date Dental abscess 01/16/2023 Mental health-related complaint 01/16/2023 Constipation, unspecified constipation type 01/03 Tic disorder 09/17/2018 Advance care planning 03/25/2012 Counseling regarding goals of care 01/28/2012 Behavior disorder 01/25/2012 Fecal impaction 06/07/2011 Poor weight gain in child 06/07/2011 ADHD (attention deficit hyperactivity disorder) 06/07/2011 Bipolar 1 disorder 06/07/2011 Learning disability 06/07/2011 Oppositional defiant disorder 06/07/2011 Weight loss 06/07/2011 Social History Tobacco Use [...] Mass Index 17.44 03/25/2023 3:27 PM CDT Procedures * XR ABD OBSTRUCTION SERIES 2VW(Performed 03/25/2023) Performed for Abdominal pain, generalized * HCG URINE QUALITATIVE - POCT (IP) INTERFACED(Performed 03/25/2023) * HCG URINE QUAL POCT NOTIFICATION(Performed 03/25/2023) * TISSUE TRANSGLUTAMINASE AB IGA(Performed 01/16/2023) Performed for Lower abdominal pain * IGA BLOOD(Performed 01/16/2023) Performed for Lower abdominal pain * TSH REFLEX FREE T4(Performed 01/16/2023) Performed for Lower abdominal pain * XR ABDOMEN KUB(Performed 01/15/2023) Performed for Constipation, unspecified constipation type * HCG URINE QUALITATIVE - POCT (IP) INTERFACED(Performed 01/15/2023) * HCG URINE QUAL POCT NOTIFICATION(Performed 01/14/2023) Performed for Constipation, unspecified constipation type * BASIC METABOLIC PANEL (CALCIUM TOTAL)(Performed 01/14/2023) * URINALYSIS REFLEX TO MICROSCOPIC NO CULTURE(Performed 04/19/2022) * CT HEAD WO CONTRAST(Performed 04/19/2022) Performed for Non-intractable vomiting with nausea, unspecified vomiting type, Acute nonintractableheadache, unspecified headache type, Anxiety states * HCG BETA BLOOD QUANTITATIVE(Performed 04/19/2022) * COMPREHENSIVE METABOLIC PANEL(Performed 04/19/2022) * CK BLOOD(Performed 01/16/2022) * COMPREHENSIVE METABOLIC PANEL(Performed 01/16/2022) * CBC W AUTO DIFFERENTIAL(Performed 01/16/2022) * HCG URINE QUAL POCT NOTIFICATION(Performed 01/16/2022) * HCG URINE QUAL POCT NOTIFICATION(Performed 05/26/2019) * IMAGING/RADIOLOGY/XRAY RESULTS ORDER(Performed 04/27/2016) * LAB RESULTS ORDER(Performed 04/27/2016) * COMPREHENSIVE METABOLIC PANEL(Performed 03/25/2012) * XR ABD OBSTRUCTION SERIES 2VW(Performed 03/24/2012) Performed for Constipation * IMAGING/RADIOLOGY/XRAY RESULTS ORDER(Performed 02/15/2012) * LAB RESULTS ORDER(Performed 02/06/2012) * PATHOLOGY/CYTOLOGY REPORT ORDER(Performed 02/05/2012) * IP CONSULT TO CASE MANAGEMENT(Performed 02/01/2012) * DISIMPACTION RECTAL(Performed 01/31/2012) Performed for CHRONIC CONSTIPATION - PER DR. TRISHA Jacobs DRB * PROCTOSIGMOIDOSCOPY RIGID DIAGNOSTIC(Performed 01/31/2012) Performed for CHRONIC CONSTIPATION - PER DR. TRISHA Jacobs DRB * BIOPSY ANORECTAL(Performed 01/31/2012) Performed for CHRONIC CONSTIPATION - PER DR. TRISHA Jacobs DRB * IP CONSULT TO PEDIATRIC SURGERY(Performed 01/31/2012) * PATHOLOGY TISSUE EXAM (STL)(Performed 01/31/2012) * FL LOWER GI WATER SOLUBLE(Performed 01/29/2012) Performed for Fecal impaction (HCC) * COMPREHENSIVE METABOLIC PANEL(Performed 01/27/2012) * IP CONSULT TO PSYCHOLOGY(Performed 01/25/2012) * IP CONSULT TO CHILD LIFE(Performed 01/25/2012) * IP CONSULT TO SLITTER OPERATOR(Performed 01/25/2012) * BASIC METABOLIC PANEL (CALCIUM TOTAL)(Performed 01/22/2012) * XR ABD OBSTRUCTION SERIES 2VW(Performed 01/22/2012) Performed for Constipation * XR ABD OBSTRUCTION SERIES 2VW(Performed 12/21/2011) Performed for Constipation * IP CONSULT TO SLITTER OPERATOR(Performed 11/19/2011) * IGA BLOOD(Performed 11/19/2011) * TISSUE TRANSGLUTAMINASE AB IGA(Performed 11/19/2011) * XR ABD OBSTRUCTION SERIES 2VW(Performed 11/18/2011) Performed for Constipation * CULTURE ANAEROBE(Performed 09/29/2009) * CULTURE ABSCESS(Performed 09/29/2009) * GLUCOSE(Performed 09/29/2009) * LYTES (NA K CL CO2) BLOOD(Performed 09/29/2009) * CREATININE BLOOD(Performed 09/29/2009) * BUN(Performed 09/29/2009) * SOMATOMEDIN C (IGF-1)(Performed 08/24/2009) Performed for Short Stature * T4 FREE DIRECT DIALYSIS(Performed 08/24/2009) Performed for Short Stature * XR BONE AGE STUDY(Performed 08/24/2009) Performed for Short Stature * GROSS + MICRO EXAM(Performed 06/20/2009) * GROSS + MICRO EXAM(Performed 06/20/2009) Results * XR ABD OBSTRUCTION SERIES 2VW (03/25/2023 6:34 PM CDT) Only the most recent of5 resultswithin the time period is included. Anatomical Region Laterality Modality Abdomen Radiographic Melina ging 03/26/2023 8:21 AM CDT Impressions 03/26/2023 8:23 AM CDT IMPRESSION: Nonobstructive bowel gas pattern. > Interpreting Provider: Jadiel Chapa MD on 03/26/2023 8:23 AM Narrative 03/26/2023 8:23 AM CDT PROCEDURE: ??XR ABD OBSTRUCTION SERIES 2VW DATE/TIME OF EXAM: ??03/25/2023 6:34 PM CLINICAL INFORMATION: None relevant/not provided if blank. Indication: R10.84: Generalized abdominal pain Additional History: COMPARISON: 01/15/2023 TECHNIQUE: Supine frontal and upright radiographs of the abdomen. FINDINGS: Moderate to large colonic stool load is present. There are no findings to suggest bowel obstruction, free intraperitoneal gas or pneumatosis. No abnormal calcifications are seen. Mild levoconvex lumbar curvature is suggested. The lower chest is normal. Procedure Note Jadiel Chapa MD - 03/26/2023 PROCEDURE: XR ABD OBSTRUCTION SERIES 2VW DATE/TIME OF EXAM: 03/25/2023 6:34 PM CLINICAL INFORMATION: None relevant/not provided if blank. Indication: R10.84: Generalized abdominal pain Additional History: COMPARISON: 01/15/2023 TECHNIQUE: Supine frontal and upright radiographs of the abdomen. FINDINGS: Moderate to large colonic stool load is present. There are no findings to suggest bowel obstruction, free intraperitoneal gas or pneumatosis. No abnormal calcifications are seen. Mild levoconvex lumbar curvature is suggested. The lower chest isnormal. IMPRESSION: Nonobstructive bowel gas pattern. > Interpreting Provider: Jadiel Chapa MD on 03/26/2023 8:23 AM Nithin Baig MD DIAGNOSTIC IMAGING O RDERABLES * HCG URINE QUALITATIVE - POCT (IP) INTERFACED (03/25/2023 6:13 PM CDT) Only the most recent of2 resultswithin the time period is included. HCG Qual Urine Negative Negative 03/25/2023 6:24 PM CDT [facility] Urine URINE / Unknown 03/25/2023 6 :13 PM CDT 03/25/2023 6:24 PM CDT Latasha Mooney DO LAB - POINT OF CARE ORDERABLES Performing Organization Address City/[facility]/ZIP Co de Phone Number [facility] [address] [place] [address] * HCG URINE QUAL POCT NOTIFICATION (03/25/2023 4:58 PM CDT) Only the most recent of4 resultswithin the time period is included. Comment Notification Label Only - See Separate Report 03/25/2023 7:00 PM CDT [facility] Urine URINE / Unknown 03/25/2023 4 :58 PM CDT 03/25/2023 5:36 PM CDT Nithin Baig MD LAB - URINALYSIS ORD ERABLES Performing Organization Address [facility] Co de Phone Number [facility] [address] [place] [phone] * TISSUE TRANSGLUTAMINASE AB IGA (01/16/2023 4:11 AM CDT) Only the most recent of2 resultswithin the time period is included. Tissue Transglutaminase (tTG) Ab, IgA <2 0 - 3 U/mL 01/17/2023 11:02 PM CDT [employer] ([facility]) Comment: INTERPRETIVE INFORMATION: Tissue Transglutaminase (tTG) [...] positive predictive value for disease. Performed By: [employer] [address] [place] [id number] Barbering Instructor: Rosie Krishna MD, PhD Blood BLOOD SPECIMEN / Unknown Lab Venipuncture / Unknown 01/16/2023 4:11 AM CDT 01/16/2023 5:23 AM CDT Tory Jin MD LAB - SEROLOGY ERIN AGUILAR [facility] [employer] ([facility]) [address] * TSH REFLEX FREE T4 (01/16/2023 4:10 AM CDT) TSH 1.020 0.350 - 4.940 uIU/mL 01/16/2023 5:42 AM CDT [facility] Blood BLOOD SPECIMEN / Unknown Lab Venipuncture / Unknown 01/16/2023 4:10 AM CDT 01/16/2023 5:01 AM CDT Tory Jin MD LAB - CHEMISTRY ORD HUGH Performing Organization Address [facility]/ZIP Co de Phone Number [address] [address], [facility] [phone] * IGA BLOOD (01/16/2023 4:10 AM CDT) Only the most recent of2 resultswithin the time period is included. IgA 184 61 - 356 mg/dL 01/16/2023 5:38 AM CDT [facility] Blood BLOOD SPECIMEN / Unknown Lab Venipuncture / Unknown 01/16/2023 4:10 AM CDT 01/16/2023 5:24 AM CDT Tory Jin MD LAB - CHEMISTRY ORD HUGH Performing Organization Address City/[facility]/ZIP Co de Phone Number [address] [address], [facility] [phone] * XR ABDOMEN KUB (01/15/2023 1:07 AM CDT) Anatomical Region Laterality Modality Abdomen Radiographic Melina ging 01/15/2023 8:18 AM CDT Impressions 01/15/2023 8:28 AM CDT IMPRESSION: Nonobstructive bowel gas pattern with moderate colonic stool. > Dictated by Zenaida Aden DO (Auto Body Estimator) 01/15/2023 8:18 AM Xiomy Boyd MD have [...] stool. > Dictated by Zenaida Aden DO (Auto Body Estimator) 01/15/2023 8:18 AM Xiomy Boyd MD have personally reviewed and interpreted this examination/study. > Interpreting Provider: Xiomy Levy MD on 01/15/2023 8:28 AM Manju Meyer MD DIAGNOSTIC IMAGING O RDERABLES * BASIC METABOLIC PANEL (CALCIUM TOTAL) (01/14/2023 11:42 PM CDT) Only the most recent of2 resultswithin the time period is included. BUN 7 7 - 26 mg/dL 01/15/2023 12:07 AM [facility] Creatinine 0.74 0.56 - 0.96 mg/dL 01/15/2023 12:07 AM [facility] Sodium 139 136 - 145 mmol/L 01/15/2023 12:07 AM [facility] Potassium 3.5 3.5 - 4.5 mmol/L 01/15/2023 12:07 AM [facility] Chloride 105 98 - 107 mmol/L 01/15/2023 12:07 AM [facility] CO2 24 22 - 29 mmol/L 01/15/2023 12:07 AM [facility] Glucose 79 70 - 115 mg/dL 01/15/2023 12:07 AM [facility] Calcium 9.7 8.4 - 10.2 mg/dL 01/15/2023 12:07 AM [facility] Anion Gap 14 8 - 18 01/15/2023 12:07 AM [facility] BUN/Creatinine Ratio 9 7 - 23 01/15/2023 12:07 AM [facility] Osmolality Calculated 285 270 - 300 mOsm/kg 01/15/2023 12:07 AM [facility] eGFR by CKD-EPI >90 >=90 mL/min/1.7 3 m2 01/15/2023 12:07 AM [facility] Blood BLOOD SPECIMEN / Unknown Venipuncture / Unknown 01/14/2023 11:42 PM CDT 01/14/2023 11:54 PM T Manju Meyer MD LAB - CHEMISTRY ERIN AGUILAR [facility] Organization Address City/State/ZIP Co de Phone Number [facility] [address] [place] [phone], [facility] [phone] * (ABNORMAL) URINALYSIS REFLEX TO MICROSCOPIC NO CULTURE (04/19/2022 5:28 PM CDT) Color UA Red(A) Straw, Yellow 04/19/2022 5:50 PM [facility] Clarity UA Cloudy(A) Clear 04/19/2022 5:50 PM [facility] Specific Slaughters UA 1.010 1.005 - 1.030 04/19/2022 5:50 PM [facility] pH UA 8.0 5.0 - 8.0 pH 04/19/2022 5:50 PM [facility] Protein UA 1+(A) Negative 04/19/2022 5:50 PM [facility] Glucose UA Negative Negative 04/19/2022 5:50 PM [facility] Ketone UA Trace(A) Negative 04/19/2022 5:50 PM [facility] Bilirubin UA Negative Negative 04/19/2022 5:50 PM [facility] Blood UA 3+(A) Negative 04/19/2022 5:50 PM [facility] Nitrite UA Negative Negative 04/19/2022 5:50 PM [facility] Leukocyte Esterase Negative Negative 04/19/2022 5:50 PM [facility] Urobilinogen UA Negative Negative mg/dL 04/19/2022 5:50 PM [facility] RBC UA >100(A) None Seen, 0-2, 3-5 /HPF 04/19/2022 5:50 PM [facility] WBC UA 21-50(A) None Seen, 0-5 /HPF 04/19/2022 5:50 PM [facility] Bacteria UA Trace(A) None /HPF 04/19/2022 5:50 PM [facility] Squamous Epithelial Cells UA 0-2 None Seen, 0-2, 3-5 /HPF 04/19/2022 5:50 PM [facility] Amorphous Crystals Moderate(A) None /HPF 04/19/2022 5:50 PM [facility] Urine URINE SPECIMEN OBTAINED BY CLEAN CATCH PROCEDURE / Unknown Collection / Unknown 04/19/2022 5:28 PM CDT 04/19/2022 5:31 PM CDT [facility] - 04/19/2022 5:50 PM CDT Paty Saldivar PA-C LAB - URINALYSIS OR DERABLES [facility] [address] [place] [address] [phone] * CT HEAD NON CONTRAST - suspected intracranial hemorrhage (04/19/2022 4:30 PM CDT) Anatomical Region Laterality Modality Head Computed Tomogra phy 04/19/2022 4:47 PM CDT Impressions 04/20/2022 7:54 AM CDT IMPRESSION: 1.No acute intracranial hemorrhage, midline shift, or significant mass effect. > Dictated by Russell Bliss MD (vice president of communications) Dolores Boyd MD have personally reviewed and interpreted this examination/study. > Interpreting Provider: Dolores Porras MD on 04/20/2022 7:54 AM Narrative 04/20/2022 7:54 AM CDT PROCEDURE: ??CT HEAD WO CONTRAST, DATE/TIME OF EXAM: ??04/19/2022 4:31 PM, LOCATION ??[facility] INDICATION: R11.2: Non-intractable vomiting with nausea, [...] DATE/TIME OF EXAM: 04/19/2022 4:31 PM, LOCATION [facility] INDICATION: R11.2: Non-intractable vomiting with nausea, [...] by Russell Bliss MD (vice president of communications) IDolores MD have personally reviewed and interpretedthis examination/study. > Interpreting Provider: Dolores Porras MD on 04/20/2022 7:54 AM Charles Dickson MD CT ORDERABLES * (ABNORMAL) COMPREHENSIVE METABOLIC PANEL (04/19/2022 3:02 PM CDT) Only the most recent of4 resultswithin the time period is included. BUN 13 7 - 26 mg/dL 04/19/2022 3:39 PM [facility] Creatinine 0.72 0.56 - 0.96 mg/dL 04/19/2022 3:39 PM [facility] Sodium 143 136 - 145 mmol/L 04/19/2022 3:39 PM [facility] Potassium 3.2(L) 3.5 - 4.5 mmol/L 04/19/2022 3:39 PM [facility] Chloride 108(H) 98 - 107 mmol/L 04/19/2022 3:39 PM [facility] CO2 24 22 - 29 mmol/L 04/19/2022 3:39 PM [facility] Glucose 83 70 - 115 mg/dL 04/19/2022 3:39 PM [facility] Calcium 9.2 8.4 - 10.2 mg/dL 04/19/2022 3:39 PM [facility] Protein Total 7.2 6.0 - 8.3 g/dL 04/19/2022 3:39 PM [facility] Albumin 3.9 3.4 - 5.0 g/dL 04/19/2022 3:39 PM [facility] Bilirubin Total 0.9 0.2 - 1.2 mg/dL 04/19/2022 3:39 PM [facility] Alkaline Phosphatase 49 40 - 150 U/L 04/19/2022 3:39 PM [facility] ALT 39 5 - 55 U/L 04/19/2022 3:39 PM [facility] AST 35(H) 5 - 34 U/L 04/19/2022 3:39 PM [facility] Anion Gap 14 8 - 18 04/19/2022 3:39 PM [facility] BUN/Creatinine Ratio 18 7 - 23 04/19/2022 3:39 PM [facility] Osmolality Calculated 295 270 - 300 mOsm/kg 04/19/2022 3:39 PM [facility] Albumin/Globulin Ratio 1.2 1.1 - 2.3 04/19/2022 3:39 PM [facility] eGFR by CKD-EPI >90 >=90 mL/min/1.7 3 m2 04/19/2022 3:39 PM [facility] Blood BLOOD SPECIMEN / Unknown Venipuncture / Unknown 04/19/2022 3:02 PM CDT 04/19/2022 3:07 PM T Paty Saldivar PA-C LAB - CHEMISTRY ORD ERABLES [facility] [address] [place] [address], [facility] [phone] * HCG BETA BLOOD QUANTITATIVE (04/19/2022 3:02 PM CDT) Beta-hCG Total Quantitative <3 mIU/mL 04/19/2022 3:44 PM CDT [facility] Comment: This assay is cleared for [...] Saldivar PA-C LAB - CHEMISTRY ORD ERABLES [facility] [address] [address], [facility] [phone] * (ABNORMAL) CBC W AUTO DIFFERENTIAL (01/16/2022 5:10 PM CDT) [facility] WBC 14.5(H) 4.4 - 10.7 x10E9/L 01/16/2022 5:16 PM CDT [facility] WBC Corrected 01/16/2022 5:16 PM CDT [facility] RBC 4.80 3.80 - 5.20 x10E12/L 01/16/2022 5:16 PM CDT [facility] Hemoglobin 12.9 12.0 - 15.6 gm/dL 01/16/2022 5:16 PM CDT [facility] Hematocrit 38.9 35.9 - 45.5 % 01/16/2022 5:16 PM CDT [facility] MCV 81.0 80.7 - 98.3 fl 01/16/2022 5:16 PM CDT [facility] MCH 26.9 26.7 - 34.0 pg 01/16/2022 5:16 PM CDT [facility] MCHC 33.2 30.8 - 35.9 gm/dL 01/16/2022 5:16 PM CDT [facility] Platelet Count 377 153 - 416 x10E9/L 01/16/2022 5:16 PM CDT [facility] RDW-CV 13.4 12.1 - 14.9 % 01/16/2022 5:16 PM CDT [facility] MPV 9.9 9.4 - 12.9 fl 01/16/2022 5:16 PM T [facility] Neutrophils % 79.3(H) 44.0 - 73.0 % 01/16/2022 5:16 PM [facility] Lymphocytes % 14.4(L) 20.0 - 43.0 % 01/16/2022 5:16 PM [facility] Monocytes % 5.0 5.0 - 13.0 % 01/16/2022 5:16 PM [facility] Eosinophils % 0.3 0.0 - 6.0 % 01/16/2022 5:16 PM [facility] Basophils % 0.5 0.0 - 2.0 % 01/16/2022 5:16 PM [facility] Immature Granulocytes 0.5 0 - 1 % 01/16/2022 5:16 PM [facility] Neutrophil Absolute 11.48(H) 2.01 - 7.14 x10E9/L 01/16/2022 5:16 PM [facility] Lymphocytes Absolute 2.08 1.07 - 3.94 x10E9/L 01/16/2022 5:16 PM [facility] Monocytes Absolute 0.73 0.26 - 1.07 x10E9/L 01/16/2022 5:16 PM [facility] Eosinophils Absolute 0.04 0 - 0.47 x10E9/L 01/16/2022 5:16 PM [facility] Basophils Absolute 0.07 0 - 0.08 x10E9/L 01/16/2022 5:16 PM [facility] Immature Granulocytes Absolute 0.07(H) 0.00 - 0.06 x10E9/L 01/16/2022 5:16 PM [facility] nRBC Auto 0 /100 WBC 01/16/2022 5:16 PM [facility] Blood BLOOD SPECIMEN / Unknown Venipuncture / Unknown 01/16/2022 5:10 PM CDT 01/16/2022 5:13 PM CDT Star Godinez RIM FIRE CHARGER OPERATOR-DYE REEL OPERATOR HELPER LAB - HEMATOLOGY ORDERABLES [facility] [address] [address] * CK BLOOD (01/16/2022 5:10 PM CDT) CK 104 29 - 168 U/L 01/16/2022 5:31 PM CDT [facility] Blood BLOOD SPECIMEN / Unknown Venipuncture / Unknown 01/16/2022 5:10 PM CDT 01/16/2022 5:13 PM CDT Star God[facility] LAB - CHEMISTRY ORDERABLES Performing Organization Address City/[facility]/ZIP Co de Phone Number [facility] [address] [address] * IMAGING/RADIOLOGY/XRAY RESULTS ORDER (04/27/2016 10:46 PM CDT) Only the most recent of2 resultswithin the time period is included. Anatomical Region Laterality Modality Other Narrative 04/27/2016 10:46 PM CDT Ordered by an unspecified provider. Scanned Document IMAGING * LAB RESULTS ORDER (04/27/2016 10:46 PM CDT) Only the most recent of2 resultswithin the time period is included. Narrative 04/27/2016 10:46 PM CDT Ordered by an unspecified provider. Scanned Document LAB - THERAPEUTIC DR UG [...] ? 02/01/2012 ??1:38 PM Referral made to [facility] [phone] re: home visits. Kamini Sharif RN-Case Management [phone] Procedure Note Kamini Sharif RN, RN - 02/01/2012 1:38 PM CDT Referral made to [facility] [phone] re: home visits. 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 ?? Has tried Miralax, mag citrate, and [...] 97.8 ??F 97 ??F ?? Resp: 14 12 20 14 Weight: ? SpO2: ? General appearance: [...] 97.8 ??F 97 ??F ??97 ??F Resp: 07 24 14 24 Weight: ? SpO2: ? Intake/Output Summary [...] WBC,RBC,HGB,HCT,MCV,MCH,MCHC,RDW,PLTCOUNT,SEGPCT,BANDPCT,LYMPHPCT, ATYPLYMPHPCT,MONOCYTPCT,EOSINPCT,BASOPHILPCT,METAPCT,MYELOCYTPCT,P ROMELOPCT,BLASTPCT,PLASMAPCT,NRBC,GRANPCT,MONOCYTPCT,EOSINPCT,BASO PHILPCT in the last [id number] hours Assessment and Plan 11 yo female [...] Case Report Surgical Pathology Report ? Case: [id number] ? Authorizing Provider: ??Patric Good MD ?Ordering Provider: ?? Geraldo Worley MD ? Ordering Location: ? [facility] ?Collected: ? 01/31/2012 11:57 AM ? Pathologist: ? Berenice Wilson MD ? Received: ?01/31/2012 12:56 PM ?Signed Out: ?02/01/2012 ??5:08 PM (Final) ? Specimen: ?Rectum ? 02/01/2012 5:08 PM [facility] Final Diagnosis RECTUM, SUCTION BIOPSY: - GANGLION CELLS PRESENT (SEE COMMENT). COMMENT: While the size of this biopsy is adequate in the usual age group (neonates) in which suction biopsy is performed, it is suboptimal for a 11 year old patient in that it contained only mucosa, muscularis mucosa and a thin superficial portion of the submucosa. 02/01/2012 5:08 PM [facility] Clinical History The patient is a 11-year-old girl, with chronic constipation, who underwent fecal disimpaction, proctosigmoidoscopy and rectal biopsy to rule-out Hirschsprung's disease. 02/01/2012 5:08 PM [facility] Gross Description The specimen is received [...] other half is frozen for acetylcholinesterase stain. (DJF/vr) 02/01/2012 5:08 PM CDT [facility] Microscopic Description 10 H&E. Examination of 38 levels of the rectal suction biopsy revealed two ganglion cells; there are no hypertrophic nerve trunks. 02/01/2012 5:08 PM CDT [facility] Disclaimer The performance characteristics of all immunohistochemical and indirect ??immunofluorescence stains (if any) cited in this report were determined by the [facility] of [facility] (immunohistochemistry) or the [facility]ology [facility] of [facility] (indirect immunofluorescence) in compliance with CLIA `88 regulations. ??Some of these tests rely on the use of analyte-specific reagents and are subject to specific labeling requirements by the FDA. ??Such tests were developed by the ??[facility] of [facility] or the [facility] of [facility] and have not been cleared or approved by the FDA. ??The FDA has determined that such clearance or approval is not necessary. ??These tests are used for clinical purposes and should not be regarded as investigational or for research. ? This case has been personally reviewed and interpreted by the attending (teaching) pathologist. 02/01/2012 5:08 PM CDT [facility] Miscellaneous samples (specimen) ENTIRE RECTUM / Unknown 01/31/2012 11:57 AM CDT 01/31/2012 12:56 PM CDT Patric Good MD LAB - PATHOLOGY/CYTO LOGY ORDERABLES Performing Organization Address City/State/[facility] Co de Phone Number [facility] [address] [address] * FL LOWER GI WATER SOLUBLE (01/29/2012 [...] Swapna Guy MD FLUOROSCOPY ORDERABL ES * IP CONSULT TO PSYCHOLOGY (01/25/2012 1:17 PM CDT) Narrative Sakina Lopez, PhD - 01/25/2012 1:17 PM CDT Sakina Lopez, PHD ? 01/25/2012 ??1:17 PM Inpatient Psychology Consultation Name: ??Mae Frances Age: ??11 ??y.o. 3 ??m.o. : ??2000 Medical Record: [id number] I attempted to interview pt; however, she refused to waken despite repeated efforts. ??Spoke with Tory Pineda and . Brooks regarding concerns about social factors. ??No family [...] care at discharge. ??Family preservation services through [place] [facility] may also be able to provide in-home therapy and parent training necessary to change chronic maladaptive patterns. ?? Dr. Bree Hermosillo is available for consultation this afternoon, pager: [phone] Sakina Lopez, PhD Clinical Psychologist [place] License [id number] Procedure Note Sakina Lopez, PhD - 01/25/2012 12:53 PM CDT Inpatient Psychology Consultation Name: Mae Frances Age: 11 y.o. 3 m.o. : 2000 Medical Record: [id number] I attempted to interview pt; however, she [...] [facility] may also be able to provide in-home therapyand parent training necessary to change chronic maladaptive patterns. Dr. Bree Hermosillo is available for consultation this afternoon, pager:[phone] Sakina Lopez, PhD Clinical Psychologist [place] License [id number] Swapna Guy MD INPATIENT CONSULT OR DERABLES * IP CONSULT TO CHILD LIFE (01/25/2012 12:56 PM CDT) Narrative Ginger Wilkerson CCLS - 01/25/2012 12:56 PM CDT DHRUV Lanier ? 01/25/2012 12:[address] Guy informed Child Life about patient's need for behavior modification. [place] created incentive chart and explained chart and consequences to patient. Patient acknowledged she understood information. Chart is located in patient's hard chart and in patient's room. [facility] Mae Frances [id number] Objective 1. ??Objective Information - Introduction: Patient is familiar to Child Life Services;Comfort measures offered 2. ??Diversional/Play Activities: Bedside activities provided;Diversional activities provided General Information Assessment Feelings: Expresses normal fear and anxiety.;Expresses anxiety related to pain. Assessment: Patient adjusting well to hospitalization at this time. Plan Child Life plan of care: Patient will be a primary followed by this Yard Clerk.;Provide developmentally appropriate therapeutic activities.;Provide relaxation, distraction and soothing techniques.;Continue to assess patient needs for changes.;Child Life Services will conduct individual sessions with patient.;Encourage patient to attend playroom/teen activity.;Encourage peer interactions (if age-appropriate).;Provide opportunity for expression of emotions. DHRUV Lanier 01/25/2012 12:53 PM Procedure Note Ginger Wilkerson CCLS - 01/25/2012 12:[address] Guy informed Child Total Eclipse about patient's need for behaviormodification. Penango created incentive chart and explained chart andconsequences to patient. Patient acknowledged she understood information.Chart is located in patient's hard chart and in patient's room. [facility] Mae Frances [id number] Objective 1. Objective Information - Introduction: Patient is familiar to [facility];Comfort measures offered 2. Diversional/Play Activities: Bedside activities provided;Diversionalactivities provided General Information Assessment Feelings: Expresses normal fear and anxiety.;Expresses anxiety related topain. Assessment: Patient adjusting well to hospitalization at this time. Plan Child Life plan of care: [facility] will be a primary [facility].;Provide developmentally appropriate therapeuticactivities.;Provide relaxation, distraction and soothingtechniques.;Continue to assess patient needs for changes.;Child LifeServices will conduct individual sessions with patient.;Encourage patientto attend playroom/teen activity.;Encourage peer interactions (ifage-appropriate).;Provide opportunity for expression of emotions. DHRUV Lanier 01/25/2012 12:53 PM Swapna Guy MD INPATIENT CONSULT OR DERABLES * IP CONSULT TO SLITTER OPERATOR (01/25/2012 12:09 PM CDT) Only the most recent of2 resultswithin the time period is included. Narrative Tory Pineda LCSW - 01/25/2012 12:09 [...] is in the process of moving from [place] to [place], [place] Tory Pineda LCSW [phone] Procedure Note Tory Pineda LCSW - 01/25/2012 12:06 PM CDT New consult received on pt today, worker in contact with Sakina Funes,Psychology, with Dr Swapna Guy, with 3 So RN and telephoned pt'smother Mother coming in later today, will meet with her about care and treatmentof pt with chronic constipation. Mother state she is in the process ofmoving from [place] to [place], [place] Tory Pineda, [facility] [phone] Swapna Guy MD INPATIENT ANCILLARY CONSULT * CULTURE ANAEROBE (09/29/2009 4:00 PM FRENCH EDGE OPERATOR) Report [facility] Comment: Final - PROMPT RESP LEFT RETROPHARYNGEL ABSCESS GRAM STAIN Moderate WBC's Moderate RBC'S No organisms seen CULTURE PEPTOSTREPTOCOCCUS ANAEROBIUS ?Rare ? PREVOTELLA ??INTERMEDIA ?Rare ?Beta Lactamase Test, Positive ? SPECIMEN FROM ABSCESS / Unknown 09/29/2009 4:00 PM FRENCH EDGE OPERATOR Shena Abbott MD LAB - MICROBIOLOGY O RDERABLES [facility] * CULTURE ABSCESS (09/29/2009 4:00 PM FRENCH EDGE OPERATOR) Report [facility] Comment: Final - PROMPT RESP LEFT RETROPHARYNGEAL ABSCESS GRAM STAIN Heavy RBC'S Moderate WBC's No organisms seen CULTURE ALPHA HEMOLYTIC STREPTOCOCCUS ?Moderate ?Two colony types ? NON HEMOLYTIC STREP ?Rare ? SPECIMEN FROM ABSCESS / Unknown 09/29/2009 4:00 PM FRENCH EDGE OPERATOR Shena Abbott MD LAB - MICROBIOLOGY O TOD Performing Organization Address [facility] de Phone Number [facility] * GLUCOSE (09/29/2009 12:50 PM FRENCH EDGE OPERATOR) Glucose 90 70 - 106 mg/dl [facility] Specimen Type/Condition [facility] BLOOD SPECIMEN / Unknown 09/29/2009 12:50 PM FRENCH EDGE OPERATOR Libra Somers DO LAB - CHEMISTRY ERIN AGUILAR Performing Organization Address [facility] de Phone Number [facility] * (ABNORMAL) LYTES (NA K CL CO2) BLOOD (09/29/2009 12:50 PM FRENCH EDGE OPERATOR) Sodium 136(L) 137 - 145 mmol/L [facility] Potassium 4.2 3.5 - 5.1 mmol/L [facility] Chloride 97(L) 98 - 107 mmol/L [facility] CO2 28.6(H) 18 - 27 mmol/L [facility] Specimen Type/Condition [facility] BLOOD SPECIMEN / Unknown 09/29/2009 12:50 PM FRENCH EDGE OPERATOR Libra Somers DO LAB - CHEMISTRY ERIN AGUILAR Performing Organization Address [facility] de Phone Number [facility] * CREATININE BLOOD (09/29/2009 12:50 PM FRENCH EDGE OPERATOR) Creatinine 0.38 0.03 - 0.59 mg/dl [facility] Specimen Type/Condition [facility] BLOOD SPECIMEN / Unknown 09/29/2009 12:50 PM FRENCH EDGE OPERATOR Libra Somers DO LAB - CHEMISTRY ERIN AGUILAR Performing Organization Address [facility] Co de Phone Number [facility] * BUN (09/29/2009 12:50 PM FRENCH EDGE OPERATOR) BUN 10.5 7 - 18 mg/dl [facility] Specimen Type/Condition [facility] BLOOD SPECIMEN / Unknown 09/29/2009 12:50 PM FRENCH EDGE OPERATOR Libra Somers DO LAB - CHEMISTRY ERIN AGUILAR Performing Organization Address [facility] de Phone Number [facility] * T4 FREE DIRECT DIALYSIS (08/24/2009 12:00 PM FRENCH EDGE OPERATOR) T4 Free Direct Dialysis 1.4 1.0 - 2.0 ng/dl [facility] BLOOD SPECIMEN / Unknown 08/24/2009 12:00 PM FRENCH EDGE OPERATOR Narrative Resulting Agency Comment Performed By [facility] ? [address] ? [place], [place] [address] Alyssa Miller MD LAB - CHEMISTRY ERIN AGUILAR Performing Organization Address [facility] de Phone Number [facility] * SOMATOMEDIN C (IGF-1) (08/24/2009 12:00 PM FRENCH EDGE OPERATOR) Somatomedin C 554 ng/ml [facility]ERNIE [facility] Reference Range CARD [facility] Comment: Pediatric Endocrine Laboratory Reference Ranges ? MALE ?FEMALE ? AGE ?RANGE ? MEAN ? RANGE ? MEAN ?? (Years) ? (ng/ml) ?? (ng/ml) ?(ng/ml) ?? (ng/ml) ? 3.0 ?34-405 ? 219 ?38-266 ? 152 ? 3.5 ?26-451 ? 238 ?26-339 ? 182 ? 4.0 ?27-470 ? 248 ?24-382 ? 203 ? 4.5 ?33-470 ? 251 ?29-408 ? 218 ? 5.0 ?42-458 ? 250 ?39-423 ? 231 ? 5.5 ?51-440 ? 246 ?50-434 ? 242 ? 6.0 ?60-422 ? 241 ?62-446 ? 254 ? 6.5 ?67-407 ? 237 ?73-462 ? 267 ? 7.0 ?72-397 ? 235 ?82-484 ? 283 ? 7.5 ?75-396 ? 235 ?90-512 ? 301 ? 8.0 ?76-404 ? 240 ?97-547 ? 322 ? 8.5 ?74-423 ? 249 ? 102-468 ? 345 ? 9.0 ?33-212 ? 262 ? 107-842 ? 370 ? 9.5 ?69-490 ? 280 ? 113-588 ? 395 ? 10.0 ? 25-701 ? 302 ? 119-642 ? 421 ? 10.5 ? 01-481 ? 328 ? 853-629 ? 446 ? 11.0 ? 60-246 ? 358 ? 136-802 ? 469 ? 11.5 ? 70-710 ? 390 ? 147-832 ? 490 ? 12.0 ? 77-770 ? 423 ? 161-853 ? 507 ? 12.5 ? 87-826 ? 457 ? 177-865 ? 521 ? 13.0 ?101-876 ? 488 ? 195-866 ? 530 ? 13.5 ?118-916 ? 517 ? 212-858 ? 535 ? 14.0 ?137-942 ? 540 ? 228-842 ? 535 ? 14.5 ?157-952 ? 555 ? 240-822 ? 531 ? 15.0 ?177-942 ? 560 ? 244-803 ? 524 ? 15.5 ?194-910 ? 552 ? 237-791 ? 514 ? 16.0 ?205-851 ? 528 ? 215-794 ? 505 ? 16.5 ?206-364 ? 485 ? 171-863 ? 497 ? 17.0 ?194-866 ? 420 ?80-549 ? 494 ? ADULT ? MALE ?FEMALE ?(years) ? Absolute Range ? Mean ? Absolute Range ? Mean ? 18-20 ? 197.0-956.0 ? 489.0 ? 193.0-575.0 ? 367.9 ? 20-23 ? 215.0-628.0 ? 420.1 ? 110.0-521.0 ? 288.9 ? 23-25 ? 169.0-591.0 ? 320.7 ? 129.0-480.0 ? 274.9 ? 25-30 ? 119.0-476.0 ? 236.7 ?96.0-502.0 ? 253.5 ? 30-40 ? 100.0-494.0 ? 211.9 ? 130.0-354.0 ? 217.7 BLOOD SPECIMEN / Unknown 08/24/2009 12:00 PM FRENCH EDGE OPERATOR Narrative Resulting Agency Comment Performed By [facility] ? [address] ? [facility] [address] Alyssa Miller MD LAB - CHEMISTRY ERIN AGUILAR [facility] * XR BONE AGE HAND AND WRIST (08/24/2009 11:54 AM FRENCH EDGE OPERATOR) Anatomical Region Laterality Modality Upper Extremity, Wrist / Hand Ot her 08/24/2009 11:5 4 AM FRENCH EDGE OPERATOR Narrative 08/24/2009 2:11 PM FRENCH EDGE OPERATOR Bone age- ??7 years 9 months Method- ??Greulich and Judith Chronologic age- ??8 years 10 months Standard deviation- ??8.3 months Skeletal maturation- ??Normal Carla Dumont MD (resident). ? Reading Radiologist- RACIEL BARRIENTOS MD ? Releasing Radiologist- RACIEL BARRIENTOS MD ? Released Date Time- 08/24/09 1412 ? Welding Machine Operator [employer]- ROSIE DUMONT MD ? ADM- KANSKIP,NADIM ? ATT- KANSIKP,NADIM ORD- JESUS,NADIM ? GALINA- GEO MATA ?SCP- Procedure Note Raciel Barrientos - 08/24/2009 Bone age- 7 years 9 months Method- Greulich and Judith Chronologic age- 8 years 10 months Standard deviation- 8.3 months Skeletal maturation- Normal Carla Dumont MD (resident). Reading Radiologist- RACIEL BARRIENTOS MD [facility] Radiologist- RACIEL BARRIENTOS MD Released Date Time- 08/24/09 1412 Welding Machine Operator [employer]- ROSIE DUMONT MD ADM- JESUS,ALYSSA ATT- JESUS,NADIM ORD- JESUS,RUTHANNIM CON- GEO MATA SCP- Alyssa Miller MD DIAGNOSTIC IMAGING O RDERABLES * GROSS + MICRO EXAM (06/20/2009 11:10 AM FRENCH EDGE OPERATOR) Only the most recent of2 resultswithin the time period is included. Result CASE NUMBER [id number] [facility] Comment: ORDERING PHYSICIAN ??BK KENDALL SPECIMEN TYPE ?Rectal Biopsy-Full Thickness CLINICAL HISTORY ? The patient is a 8-year-old girl with constipation who underwent manual disimpaction of the rectum, colonic irrigation, and full thickness rectal biopsy. GROSS DESCRIPTION ? Submitted fresh in one container for gross and microscopic examination, labeled with the patient's name, Mae Frances, and rectal biopsy, full thickness is a 1.4 x 1 x ??0.2 cm roughly rectangular, soft, pink-quintero tissue fragment. ??A portion of the specimen is submitted for paraffin sectioning as A1. A portion of the specimen is frozen for acetylcholinesterase stain as A2. ??(CT/nab) MICROSCOPIC DESCRIPTION ? 5 H/E ??5 FS H/E ??6 acetylcholinesterase stains. DIAGNOSIS ? DIAGNOSIS ?? RECTAL BIOPSY ?-GANGLION CELLS PRESENT IN SUBMUCOSA. ?-NO SMOOTH MUSCLE LAYERS IDENTIFIED. This case has been personally reviewed and interpreted by the attending (teaching) pathologist. Welding Machine Operator [employer] ? WANG SCHROEDER A PATHOLOGIST ?Cory Stewart M.D. ELECTRONICALLY DARRYL Cory Stewart MISCELLANEOUS SAMPLES / Unknown 06/20/2009 11:10 AM FRENCH EDGE OPERATOR 06/20/2009 12:23 PM FRENCH EDGE OPERATOR Historical Provider LAB - PATHOLOGY/C YTOLOGY ORDERABLES [facility] RE[facility] Care Teams Gear Cutter Relationship Specialty Start Date End Date None, Physician [id number] PCP - General 03/25/23
--- OUTSIDE RECORDS SUMMARY | 2024-08-02 02:36 | XMS_ITS | Encounter Summary ---
Author Organization [facility] Address [address] [place] [address] Care Team Providers Care Cad Application Support Specialist Name Role Phone None, Physician Primary Care Provider Unavailabl e Reason for Visit * Reason Comments Constipation Pt with hx constipat ion and now having abdominal pain, vomiting this at 5am. Sleeping off and on. Unknown about fevers. Can't remember when last period was and I'm not sure if I could be General Stan Ropre Encounter Details Date Type Department Care Team (Late st Contact Info) Description 03/25/2023 3:57 PM CDT - 03/25/2023 7:23 PM CDT Emergency ER at [address] [address] Nithin Baig MD [address] [place] [id number] Latasha Mooney DO [address] [place] [id number] Abdominal pain, generalized; Constipation, unspecified constipation type Discharge Disposition: Home or Self Care Social [...] Mass Index 17.44 03/25/2023 3:27 PM CDT documented in this encounter Discharge Instructions * Discharge Instructions* Mae Marshall DO - 03/25/2023 5:58 PM CDT You were seen today in the [facility] Emergency Department for constipation with large stool burden. We treat this in several steps : 1) initial cleanout - get all the stool out 2) maintenance - keep things soft and easy to pass 3) toilet sitting/behavioral modification strategies - retrain the body to do what its supposed to do by taking advantage of natural reflexes. This may take several months or sometimes even years to fully be managed. Its important to keep up with this treatment strategy. Symptoms may (and likely will) resurface. Ifthat is the case, important to start again with cleanout. Other less common causes of chronic constipation include electrolyte or thyroid issues, celiac disease, anatomic issues. STEP 1 CLEANOUT 1.Eat light breakfast then remain on clear liquids only until the next morning. Mix 255g Miralax (1standard bottle) with 64oz Gatorade. Drink 8oz every 20-30 min until gone. Then swallow four (4), 5mg bisacodyl (Dulcolax) tablets by mouth. 2. Goal is liquid stool without chunks in it 3. If still having hard, formed stool, repeat the same flush on a second day 4. Do this on a weekend when she is not in school and your child has easy access to toilet at home. STEP 2 MAINTENANCE 1. After clean out , we need to keep stools soft and easy to pass to allow the intestines to return to normal size and funciton 2. Keep taking Miralax 1/2 capful in 8 oz daily. Adjust the daily dose to produce soft easy to passbowel movements STEP 3 BOWEL RETRAINING 1. We need to retrain the bowels to do what they are supposed to do. We will take advantage of the natural reflex to have a bowel movement after meals. 2. Sit on the toilet and try to to have a bowel movement ~5-10 minutes after a meal. Only need to sit for 5 minutes or so. Its ok if you do not stool. We are simply trying to retrain the intestines. 3. Drink plenty of non caffeinated beverages and eat plenty of fruits and vegetables 4. After meals, especially after breakfast, is the best time for this ???toileting practice?? or ???sit?? , because a full stomach makes most people feel the need to have a bowel movement. 5. A large warm drink may help this feeling. 6. After a warm bath may also be a good time to attempt a bowel movement. 7. Place a box or stool under the feet to raise their knees higher than hips to help you to bear down. documented in this encounter Medications at Time [...] tablet 01/16/2023 documented as of this encounter ED Notes * Paty Henning RN - 03/25/2023 7:23 PM CDT Pt alert and calm at time of discharge. VSS. Discharge plan for home reviewed with parent. Medication instructions discussed, schedule suggested, pharmacy verified. Follow-up instructions reviewed. Given opportunity for questions. Pt verbalized understanding. * Latasha Mooney DO - 03/25/2023 6:05 PM CDT 6:05 PM Assumed care and received sign out from Dr. Baig at shift change. Discussed all pertinent results, pending items and potential disposition plan. I - Illness severity: Mild P-Patient summary: Mae Frances is a 22 year old female with a past medical history of constipation with impaction in January 2023 who presents to ED for evaluation of constipation that began more than 1 week ago. Pt is unsure of last BM and reports passing water through bowels with no gas or solids. Associated symptoms include abdominal pain. Last menses has been over 1 month ago. No other recent injuries or illnesses. In the ED, obtained HCG and abdominal XR. Plan for Miralax clean out ifXR consistent with significant stool burden. Pt declined enema. A- Action list: Pending imaging S- Situation awareness /Contingency planning: See above S- Synthesis by industrial energy engineer: See above Progress Notes 7:18 PM XR shows significant amount of L sided stool. Discussed treatment with enema. Pt refuses enema in ED. Will DC home with regimen for clean out with Miralax. 7:18 PM The patient remains stable at the time of discharge. My/Our clinical impression was discussed and results were reviewed. The patient/guardian was given the opportunity to ask questions, and I/we addressed them as completely as possible given the information available at present. The therapeutic plan was discussed, instructions were given and the importance of primary care follow up was stressed and encouraged. The patient/guardian voiced understanding of the plan, indications to return, and theneed for follow up. Disposition Final diagnoses: Abdominal pain, generalized Constipation, unspecified constipation type New Medications: New Prescriptions No medications on file I have advised the patient to follow-up with: [facility] [address], [place] [address] [facility] [phone] Schedule an appointment as soon as possible for a visit Disposition: Discharged 03/25/2023 7:18 PM Scribe Attestation By signing my name below, I, Ling Constantino, attest that this documentation has been prepared under the direction and in the presence of Dr. Mooney Electronically Signed: Ling Constantino 03/25/2023 6:05 PM Provider Attestation I, Dr. Mooney, personally performed the services described in this documentation. All medical recordentries made by the scribe were at my direction and in my presence. I have reviewed the chart and agree that the record reflects my personal performance and is accurate and complete. I have fully participated in the care of this patient. I have reviewed all pertinent clinical information available to me during this encounter, including history, physical exam and plan. I have reviewed nursing notes, vital signs, available labs and radiographic studies. * Ana Chu MD - 03/25/2023 5:42 PM CDT 5:46 PM Assumed care and received sign out from Dr. Marshall at shift change. Discussed all pertinent results, pending items and potential disposition plan. I - Illness severity: Stable P-Patient summary: Mae is a 22 y.o. female with a history of constipation who presents for abdominal pain and constipation. She was here in January for bowel cleanout after bowel obstruction. Cannot recall last bowel movement, thinks it was longer than 1 week ago. Can't remember last period, maybe over 1 month ago. Having difficulty urinating. Currently wearing a depends because of light brown fluid from rectum. Gave tylenol for pain. Has a hard mass on abdominal exam. Hasn't been taking miralax as prescribed. Patient wants to be admitted for golytely cleanout. A- Action list: Obstructive studies ordered - pending test results. HCG pending. S- Situation awareness /Contingency planning: See above S- Synthesis by industrial energy engineer: See above Updates: - Urine test negative - Obstructive series showing significant stool burden - Encouraged patient to do an enema in the ED prior to Miralax clean out. Patient declined enema. Instructions given for clean out regimen with Miralax. - Patient discharged home with instructions to follow up with [facility]. * Nithin Baig MD - 03/25/2023 4:57 PM CDT Provider contact with the patient: 03/25/2023 4:57 PM [facility] EMERGENCY DEPARTMENT Mae Frances [id number] History Chief Complaint Patient presents with ??? Constipation Pt with hx constipation and now having abdominal pain, vomiting this at 5am. Sleeping off and on. Unknown about fevers. Can't remember when last period was and I'm not sure if I could be ??? General Stan Roper Chief complaint narrative was entered by triage nurse, not by physician. I have read the resident/medical student/SAND POLISHER history. Unless appended by me below, I agree with findings as documented. HPI History provided per: pt Mae Frances is a 22 year old female with a past medical history of constipation with impaction in January 2023 who presents to ED for evaluation of constipation that began more than 1 week ago. Pt is unsure of her last BM. Per pt, she has been passing water through bowels but no gas or solids.Also endorses abdominal pain. It has been over 1 month since pt's last period but she is unsure when specifically. No other recent injuries or illnesses. All immunizations are up-to-date. Allergies Allergen Reactions ??? Stimulant Laxative [Bisacodyl] Rash ??? Tegretol [Carbamazepine] Rash Past Medical History: Diagnosis Date ??? ADHD (attention deficit hyperactivity disorder) ??? Aggression ??? Bipolar affective (CMS/HCC) ??? Constipation, chronic ??? Headache(784.0) started approximately 2 years ago ??? Learning disability ??? ODD (oppositional defiant disorder) ??? S/P colonoscopy age 6y/o ??? Sensory integration disorder Social History Socioeconomic History ??? Marital status: Single Spouse name: Not on file ??? Number of children: Not on file ??? Years of education: Not on file ??? Highest education level: Not on file Occupational History ??? Not on file Tobacco Use ??? Smoking status: Never Passive exposure: Current ??? Smokeless tobacco: Never Vaping Use ??? Vaping Use: Every day Substance and Sexual Activity ??? Alcohol use: No ??? Drug use: Yes Frequency: 1.0 times per week Types: Marijuana Comment: Uses it as a sleep aid ??? Sexual activity: Not Currently control/protection: Condom Other Topics Concern ??? Special Diet Not Asked Social History Narrative Living with non biological uncle, who is a family friend. 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 Social Determinants of Health Financial Resource Strain: Not on file Food Insecurity: Not on file Transportation Needs: Not on file Stress: Not on file Housing Stability: Not on file Family History Problem Relation Name Age of Onset ??? Migraine Mother ??? ADHD Maternal Uncle Also patient's cousin ??? Bipolar Disorder Maternal Uncle Also patient's cousin ??? Other Other Cousin with chronic constipation Discharge Medication List as of 03/25/2023 7:19 PM CONTINUE these medications which have NOT CHANGED Details amoxicillin-clavulanate (Augmentin) 875-125 MG tablet Take 1 (one) tablet by mouth 2 times daily with morning and evening meal, Historical Medication buPROPion (Wellbutrin) 75 MG tablet Take 1 (one) tablet by mouth 2 times daily, Historical Medication polyethylene glycol 3350 (Miralax) 17 GM/SCOOP powder Disp-255 g, R-3, Take 17 (seventeen) g by mouth 3 times daily, ePrescribe senna (Senokot) 8.6 MG tablet Disp-28 tablet, R-0, Take 2 (two) tablets by mouth once daily as needed For constipation (no stool >48h) despite regular use of miralax or other stool softener., ePrescribe Review of Systems All relevant systems reviewed and all negative except as noted in resident/medical student/SAND POLISHER and attending HPI/ROS. Review of Systems Gastrointestinal: Positive for abdominal pain and constipation. Physical Exam I have reviewed the resident/medical student/SAND POLISHER physical exam. Unless appended by me below, I agreewith the PE as documented. Vitals: 03/25/23 1527 BP: 100/60 Pulse: 104 Resp: 16 Temp: 98.7 ??F (37.1 ??C) SpO2: 99% Weight: 45.2 kg (99 lb 10.4 oz) Height: 1.61 m (5' 3.39 ) Constitutional: Pt appears well-developed and well-nourished; in no acute distress Head: Normocephalic; atraumatic. Eyes: Conjunctivae are normal. ENT: Mucous membranes moist. Neck: Normal ROM. Cardiovascular: Good perfusion. Pulmonary: Normal respiratory effort. Abdominal: Soft throughout, but firm palpable mass in LLQ. Mild tenderness to palpation. Extremities: Full ROM. Neurological: Pt is alert. Nursing notes and vitals reviewed. Procedures Procedures Labs/Orders Orders Placed This Encounter ??? XR ABD OBSTRUCTION SERIES 2VW ??? HCG URINE QUAL POCT NOTIFICATION ??? acetaminophen (Tylenol) tablet 650 mg XR ABD OBSTRUCTION SERIES 2VW Final Result PROCEDURE: XR ABD OBSTRUCTION SERIES 2VW DATE/TIME [...] is suggested. The lower chest is normal. IMPRESSION: Nonobstructive bowel gas pattern. > Interpreting Provider: Jadiel Chapa MD on 03/26/2023 8:23 AM Hospital Encounter on 03/25/23 HCG URINE QUAL POCT NOTIFICATION Result Value Ref Range Comment Notification Label Only - See Separate Report HCG URINE QUALITATIVE - POCT (IP) INTERFACED Result Value Ref Range HCG Qual Urine Negative Negative ED Course Initial Assessment & Plan: Mae Frances is a 22 year old female with chronic constipation presenting with concern for constipation. Also unsure of last menstrual period. Abdominal exam consistent with palpable stool burden. Will obtain HCG and abdominal XR. Should XR demonstrate significant stool burden consistent with exam, pt declines enema in the ED but is agreeable to home Miralax clean out. 6:00 PM I discussed case and findings, including treatment plan, evaluations, consults, and lab/imaging results. Dr. Mooney agreed to assume care of the patient. Medical Decision Making Medical Decision Making Abdominal pain, generalized: acute illness or injury Amount and/or Complexity of Data Reviewed Radiology: ordered. Decision-making details documented in ED Course. Risk OTC drugs. The total time providing critical care (excluding time spent for procedures) was: 0 minutes. Clinical Impression and Disposition Final Diagnosis: Final diagnoses: Abdominal pain, generalized Constipation, unspecified constipation type Disposition: Care Transferred 03/25/2023 6:00 PM Scribe Attestation By signing my name below, I, Bonita Fang, attest that this documentation has been prepared under the direction and in the presence of Dr. Baig Electronically Signed: Bonita Fang 03/25/2023 4:57 PM Provider Attestation I, Dr. Baig, personally performed the services described in this documentation. All medical recordentries made by the scribe were at my direction and in my presence. I have reviewed the chart and agree that the record reflects my personal performance and is accurate and complete. I have fully participated in the care of this patient. I have reviewed all pertinent clinical information available to me during this encounter, including history, physical exam and plan. I have reviewed nursing notes, vital signs, available labs and radiographic studies. With respect to physicians in training and mid-level providers, I, Dr. Baig, agree with the assessment and plan except if revised in my note. * Mae Marshall DO - 03/25/2023 4:17 PM CDT [facility] ED Encounter Note A [id number] working with a supervising attending writes the following note. As such, the note will be abbreviated specifying lópez portions of the ED encounter. A more complete note of the ED encounter from the supervising attending physician can be found in the medical record. HISTORY Provider contact with the patient: 03/25/2023 Mae Frances [id number] Chief Complaint Patient presents with ??? Constipation Pt with hx constipation and now having abdominal pain, vomiting this at 5am. Sleeping off and on. Unknown about fevers. Can't remember when last period was and I'm not sure if I could be ??? General Stan Roper The chief complaint narrative was entered by a triage nurse, not by physician. HPI I have discussed the HPI documented in the supervisory provider's note, unless otherwise stated below. Mae Frances is a 22-year-old female presenting with an indeterminate history of constipation.Patient states that she cannot remember the last time she stooled, but believes it to be greater than 1-week ago. Mae endorses associated symtpoms of a couple episodes of vomiting this morning, which she describes as yellow like stomach acid . Patient reports that she feels warm to touch, but did not take her temperature at home. She endorses back pain and pain around her rectum. She denies associated fevers, rhinorrhea, cough, sore throat, or other sick symptoms. Past medical history is significant for previous admission (01/14/2023 - 01/16/2023) for bowel clean out, afterwhich Mae was recommended to begin a daily Miralax regimen with Senna as needed. She denies frequent use of either medication. Upon private discussion, patient reveals that she wears ladies diapers due to constant leakage per her rectum. Past Medical History: Chronic Constipation, Obsessive Compulsive Disorder, Bipolar Disorder Past Surgical History: Tonsillectomy (2009), Rectal Biopsy (01/31/2012) Family History: Mother: Migraines, Cousin: Chronic constipation REVIEW OF SYSTEMS I have discussed the ROS documented in supervisory provider's note, unless otherwise stated below. General (-) fever (-) fatigue (-) nausea (-) emesis (-) change in appetite HEENT (-) ocular redness (-) ear pain (-) sore throat Cardiovascular (-) cyanosis (-) heart murmur Respiratory (-) increased work of breathing (-) cough (-) wheezing Neurologic (-) headaches (-) dizziness Gastrointestinal (-) diarrhea (-) constipation (+) clear fluid per rectum Skin & Lymph (-) rash (-) urticaria (-) swollen lymph nodes PHYSICAL EXAM I have discussed the PE documented in supervisory provider's note. Pertinent physical exam findingsstated below. Physical Exam Constitutional: General: She is in acute distress. HENT: Head: Normocephalic. Nose: Nose normal. Mouth/Throat: Mouth: Mucous membranes are moist. Eyes: Conjunctiva/sclera: Conjunctivae normal. Cardiovascular: Rate and Rhythm: Normal rate and regular rhythm. Heart sounds: No murmur heard. No friction rub. No gallop. Pulmonary: Effort: No respiratory distress. Breath sounds: No wheezing, rhonchi or rales. Abdominal: General: Bowel sounds are decreased. Palpations: There is mass. Tenderness: There is generalized abdominal tenderness. There is guarding. Musculoskeletal: Cervical back: No tenderness. Lymphadenopathy: Cervical: No cervical adenopathy. Skin: General: Skin is warm. Capillary Refill: Capillary refill takes less than 2 seconds. Coloration: Skin is not jaundiced or pale. Neurological: General: No focal deficit present. Mental Status: She is alert and oriented to person, place, and time. PE: BP 100/60 Pulse 104 Temp 98.7 ??F (37.1 ??C) Resp 16 Ht 1.61 m (5' 3.39 ) Wt 45.2 kg (99 lb 10.4 oz) SpO2 99% PROCEDURE Procedures LABS/ORDERS Orders Placed This Encounter ??? XR ABD OBSTRUCTION SERIES 2VW ??? HCG URINE QUAL POCT NOTIFICATION ??? acetaminophen (Tylenol) tablet 650 mg XR ABD OBSTRUCTION SERIES 2VW (Results Pending) Hospital Encounter on 03/25/23 HCG URINE QUAL POCT NOTIFICATION Result Value Ref Range Comment Notification Label Only - See Separate Report HCG URINE QUALITATIVE - POCT (IP) INTERFACED Result Value Ref Range HCG Qual Urine Negative Negative ED COURSE Mae Frances is a 22 year old female with past psychiatric history incluidng OCD and bipolardisorder presenting with recurrent constipation with lower abdominal mass consistent with obstructive stool burden. Differential Diagnoses: Recurrent constipation vs. Bowel obstruction Clinical Impressions as of 03/25/23 1948 Abdominal pain, generalized Constipation, unspecified constipation type ED Management: 1617 Physical exam concern for abdominal tenderness with lower, midline abdominal mass. 183 Abdominal X-ray Obstruction series reveals large stool burden. 191 Patient stable for discharge home. Recommend the following at-home bowel clean out regimen: 1.Eat light breakfast then remain on clear liquids only until the next morning. Mix 255g Miralax (1standard bottle) with 64oz Gatorade. Drink 8oz every 20-30 min until gone. Then swallow four (4), 5mg bisacodyl (Dulcolax) tablets by mouth. 2. Goal is liquid stool without chunks in it 3. If still having hard, formed stool, repeat the same flush on a second day Followed by maintenance with Miralax 1/2 capful in 8 oz of water per day. Adjust the daily dose to produce soft easy to pass bowel movements. May also use bowel retraining strategies includin. Sit on the toilet and try to to have a bowel movement ~5-10 minutes after a meal. Only need to sit for 5 minutes or so. Its ok if you do not stool. We are simply trying to retrain the intestines. 2. Drink plenty of non caffeinated beverages and eat plenty of fruits and vegetables 3. After meals, especially after breakfast, is the best time for this ???toileting practice?? or ???sit?? , because a full stomach makes most people feel the need to have a bowel movement. A large warm drink may help this feeling. 4. After a warm bath may also be a good time to attempt a bowel movement. 5. Place a box or stool under the feet to raise their knees higher than hips to help you to bear down. Medical Decision Making Abdominal pain, generalized: acute illness or injury Constipation, unspecified constipation type: chronic illness or injury Amount and/or Complexity of Data Reviewed Radiology: ordered. Risk OTC drugs. CLINICAL IMPRESSIONS AND DISPOSITION Final Diagnosis: Final diagnoses: Abdominal pain, generalized Constipation, unspecified constipation type Disposition: Patient stable for discharge home. Recommend adherence with bowel clean out regimen and baseline constipation prevention plan. Recommend establish care with primary care provider. documented in this encounter Plan of Treatment Not on file documented as of this encounter Procedures Procedure Name Priority Date/Time Associated Diagnosis Comments XR ABD OBSTRUCTION SERIES 2VW STAT 03/25/2023 6:34 PM CDT Abdominal pain, generalized HCG URINE QUALITATIVE - POCT (IP) INTERFACED Routine 03/25/2023 6:13 PM CDT HCG URINE QUAL POCT NOTIFICATION STAT 03/25/2023 4:58 PM CDT documented in this encounter Results * XR ABD OBSTRUCTION SERIES 2VW (03/25/2023 6:34 PM CDT) Anatomical Region Laterality Modality Abdomen [...] POCT (IP) INTERFACED (03/25/2023 6:13 PM CDT) HCG Qual Urine Negative Negative 03/25/2023 6:24 PM CDT [facility] Urine URINE / Unknown 03/25/2023 6 :13 PM CDT 03/25/2023 6:24 PM CDT Latasha Mooney DO LAB - POINT OF CARE ORDERABLES Performing Organization Address City/[facility]/ZIP Co de Phone Number [facility] [address] [place] [phone] * HCG URINE QUAL POCT NOTIFICATION (03/25/2023 4:58 PM CDT) Comment Notification Label Only - See Separate Report 03/25/2023 7:00 PM CDT [facility] Urine URINE / Unknown 03/25/2023 4 :58 PM CDT 03/25/2023 5:36 PM CDT Nithin Baig MD LAB - URINALYSIS ORD ERABLES Performing Organization Address [facility] Co de Phone Number [facility] [address] [place] [phone] documented in this encounter Visit Diagnoses Diagnosis Abdominal pain, generalized Constipation, unspecified constipation type documented in this encounter Administered Medications Inactive Administered Medications - up to 3 most recent administrations Medication Order MAR Action Action Date Dose Rate Site acetaminophen (Tylenol) tablet 650 mg 650 mg, Oral, NOW, 1 dose, On 03/25/23 at 1730, Patient preference for lesser PRN pain meds may be honored when the patient requests a less strong medication, a lower dose, or a less intrusive route of administration when the lesser drug, dose and route have been ordered for the patient. This patient request must be documented in the MAR. $ Given 03/25/2023 5:27 PM CDT 650 mg documented in this encounter Active and Recently Administered Medications Times are shown in CDT. Scheduled Medication Order 03/23/2023 03/24/2023 03/25/2023 acetaminophen (Tylenol) tablet 650 mg (COMPLETED) 650 mg, Oral, NOW, 1 dose, On 03/25/23 at 1730, Patient preference for lesser PRN pain meds may be honored when the patient requests a less strong medication, a lower dose, or a less intrusive route of administration when the lesser drug, dose and route have been ordered for the patient. This patient request must be documented in the OCT. 1727 ($ Given - Prov ider: Bhupinder Bee RN) documented in this encounter Care Teams Cad Application Support Specialist Relationship Specialty Start Date End Date None, Physician [address] [place] [address] PCP - General 03/25/23 documented as of this encounter
--- OUTSIDE RECORDS SUMMARY | 2024-08-02 02:36 | XMS_ITS | Encounter Summary ---
Author Organization [facility] Address [address] [place] [address] Care Team Providers Care Scientist Electronics Name Role Phone Geo Goyal MD Primary Care Provider [phone] Reason for Visit * Reason Onset Date Comments Hospital Follow-up 12/24/2011 Encounter Details Date Type Department Care Team (Late st Contact Info) Description 12/24/2011 Telephone ER at [address] [address] Shira Berrios RN Hospital Follow-up Social History Tobacco Use Types Packs/Day Years Used Date Smoking Tobacco: Never Alcohol Use Standard Drinks/Week Comments No 0 (1 standard drink = 0.6 oz pur e alcohol) Sex and Gender Information Value Date Recorded Sex Assigned at Not on file Gender Identity Not on file Sexual Orientation Not on file documented as of this encounter Miscellaneous Notes * Telephone Encounter - Shira Berrios RN - 12/24/2011 12:50 PM CDT Phoned home number and identified myself as Follow up RN at [facility].Mom verified she was the mother of Mae then hung up the phone. Unable to establish additional contact. documented in this encounter Plan of Treatment Not on file documented as of this encounter Visit Diagnoses Not on filedocumented in this encounter Care Teams Scientist Electronics Relationship Specialty Start Date End Date Geo Goyal MD [address] [place] [address] PCP - General 08/24/09 01/15/22 documented as of this encounter
--- OUTSIDE RECORDS SUMMARY | 2024-08-02 02:36 | XMS_ITS | Encounter Summary ---
Author Organization [facility] Address [address] [place] [address] Care Team Providers Care Worm Grower Name Role Phone Geo Goyal MD Primary Care Provider [phone] Reason for Visit * Reason Onset Date Comments Results 04/17/2016 Encounter Details Date Type Department Care Team (Late st Contact Info) Description 04/17/2016 Telephone [facility] - [address] [address] Florencia Lopez MD [address] [place] [id number] Results Social History Tobacco Use Types Packs/Day [...] Telephone Encounter - Chastity Herrera RN - 04/18/2016 2:29 PM CDT Gave mom Dr Lopez's message, she reports that the MRI is scheduled for 04/23. * Telephone Encounter - Florencia Lopez MD - 04/18/2016 2:24 PM CDT Labs were normal. These included thyroid tests, CMP, CBC, vitamin D levels. * Telephone Encounter - Lisa Chavez - 04/17/2016 3:22 PM CDT Received lab results from romulo Brady 04/17. Placed in Dr. Lopez's mailbox for review. documented in this encounter Plan of Treatment Not on file documented as of this encounter Visit Diagnoses Not on filedocumented in this encounter Care Teams Worm Grower Relationship Specialty Start Date End Date Geo Goyal MD [address] [place] [address] PCP - General 08/24/09 01/15/22 documented as of this encounter
--- OUTSIDE RECORDS SUMMARY | 2024-08-02 02:36 | XMS_ITS | Encounter Summary ---
Author Organization [facility] Address [address] [place] [address] Care Team Providers Care Deposit Refund Clerk Name Role Phone Geo Goyal MD Primary Care Provider [phone] Reason for Visit * Reason Onset Date Comments Update 02/19/2012 Encounter Details Date Type Department Care Team (Late st Contact Info) Description 02/19/2012 Telephone [facility] Pediatrics - [address] [place] [address] Barry Hernandez MD [address] [place] [id number] Update Social History Tobacco Use Types Packs/Day [...] Telephone Encounter - Barry Hernandez MD - 02/19/2012 5:10 PM CDT Spoke to mom about the current situation, which is not as bad as she has had in the past. Plan: 1. mag citrate 3 oz x 1 2. If poor results, enema * Telephone Encounter - Swapna Ibarra RN - 02/19/2012 3:47 PM CDT Spoke to mother who states Mae is still having constipation. Her stomach is hard to the lowerhalf of her abdomen, but no abdominal pain. She has 2 soft stools yesterday. She sits on the toiletat the same time every day, several times per day. She is giving miralax 2 capfuls po daily and if no stools for 36 hours, she gives another capful. Mother cannot get her to drink water. Mother states Mae is sneaking milk products and cheese. Mother unsure what to do now since she is getting backed-up again. documented in this encounter Plan of Treatment Not on file documented as of this encounter Visit Diagnoses Not on filedocumented in this encounter Care Teams Deposit Refund Clerk Relationship Specialty Start Date End Date Geo Goyal MD [address] [place] [phone] PCP - General 08/24/09 01/15/22 documented as of this encounter
--- OUTSIDE RECORDS SUMMARY | 2024-08-02 02:36 | XMS_ITS | Encounter Summary ---
Author Organization [facility] Address [address] [place] [address] Care Team Providers Care Neon Electrician Name Role Phone Geo Goyal MD Primary Care Provider [phone] Reason for Visit * Reason Comments Lower Extremity Problem left Encounter Details Date Type Department Care Team (Latest Contact Info) Description 10/07/2012 9:40 AM SUPERVISOR METER SHOP - 10/07/2012 11:59 PM SUPERVISOR METER SHOP Hospital Encounter [facility] Pediatrics - Orthopedics [address] [place] [address] Andres Anders PA-C [address] [place] [address] Discharge Disposition: Home or Self Care Social [...] on file documented as of this encounter Discharge Instructions * Patient Instructions* Andres Anders PA-C - 10/07/2012 10:05 AM SUPERVISOR METER SHOP ORTHOPAEDIC CLINIC DISCHARGE INSTRUCTIONS SHEET Follow Up: Please make a return appointment for 3 week(s) Wear hard sole shoe as needed for 3 weeks. May weight bear as tolerated on left foot. Limit strenuous activity--no running, jumping, playground equipment, physical education activities,sports activities until released. School excuse: 10/07/2012 Tylenol and Ibuprofen (over the counter medication) may be used per instructions. If you have any questions or concerns in the interim, or if you need to schedule surgery for your child, you may contact our orthopedic office at . If you need to make a clinic appointment, please call . RVISOR METER SHOP documented in this encounter Medications at Time of Discharge Medication Sig Dispensed Refills Start Date End Date asenapine (SAPHRIS) 10 MG tablet Dissolve 10 mg under the tongue at bedtime. 09/17/2018 asenapine (SAPHRIS) 5 MG tablet Dissolve 5 mg under the tongue daily with breakfast. 09/17/2018 gabapentin (NEURONTIN) 100 MG capsule Take 100 mg by mouth 3 times daily. 04/13/2016 lamoTRIgine (LAMICTAL) 25 MG tablet Take 25 mg by mouth 2 times daily. 3 tabs bid 04/13/2016 sertraline (ZOLOFT) 100 MG tablet Take 1 Tab by mouth 2 times daily. 60 Tab 0 02/01/2012 01/16/2023 documented as of this encounter Progress Notes * Andres Anders PA-C - 10/07/2012 10:45 AM CST PEDIATRIC ORTHOPAEDIC CLINIC NOTE NAME: Mae Frances DATE OF SERVICE: 10/07/2012 DATE: 2000 PCP: Geo Goyal HISTORY: Mae Frances is a 12 y.o. 0 m.o. female who presents 9 day(s) status post a left great toe injury. She states that she jammed it on a table. Mae Frances was treated at [facility] for xrays and presents for further evaluation. Her mother reports that she has been running and jumping on it without any pain or problems. The patient however rates her pain as a 6 out of 10 today. The patient denies new onset of numbness in her lower extremities. PAST MEDICAL HISTORY: Past Medical History Diagnosis Date ??? Headache started approximately 2 years ago ??? S/P colonoscopy age 6y/o ??? ADHD (attention deficit hyperactivity disorder) ??? Sensory integration disorder ??? Bipolar affective ??? ODD (oppositional defiant disorder) ??? Aggression ??? Learning disability ??? Constipation, chronic PAST SURGICAL HISTORY: Past Surgical History Procedure Date ??? Tonsillectomy 2009 ??? Biopsy 01/31/2012 N/A; BIOPSY RECTAL MEDICATIONS: Current outpatient prescriptions:asenapine (SAPHRIS) 5 MG tablet, Dissolve 5 mg under the tongue daily with breakfast., Disp: , Rfl: ; asenapine (SAPHRIS) 10 MG tablet, Dissolve 10 mg under the tongue at bedtime., Disp: , Rfl: ; lamoTRIgine (LAMICTAL) 25 MG tablet, Take 25 mg by mouth 2 times daily. 3 tabs bid, Disp: , Rfl: ; gabapentin (NEURONTIN) 100 MG capsule, Take 100 mg by mouth 3 times daily. , Disp: , Rfl: sertraline (ZOLOFT) 100 MG tablet, Take 1 Tab by mouth 2 times daily., Disp: 60 Tab, Rfl: 0 No current facility-administered medications for this encounter. Facility-Administered Medications Ordered in Other Encounters: piperacillin- tazobactam (ZOSYN) 60 mg/ml pediatric IV, , , PRN, Kenisha Delgado MD, 1,270 mg at 01/31/12 1232 ALLERGIES: Allergies as of 10/07/2012 - reviewed 10/07/2012 Allergen Reaction Noted ??? Tegretol (carbamazepine) Rash 01/30/2010 ??? Stimulant laxative (bisacodyl) Rash 07/10/2010 IMMUNIZATIONS: Immunization status: stated as current, but no records available. SOCIAL HISTORY: Patient lives with her mother only. she does attend school. FAMILY HISTORY: Negative for any genetic conditions affecting children. ROS: A 12 point review of systems was obtained today and is positive for what is stated above. PHYSICAL EXAMINATION: General appearance: alert, cooperative, no distress. She has good head control. No rashes or abnormal dyspigmentation Extremities: The uninjured left lower extremity was examined and demonstrated normal skin, normal range of motion and alignment of all joint, normal motor, sensory and vascular examination, and was without pain. It was used for comparison when examining the injured left lower extremity. General appearance: no acute distress The examination was performed out of shoes Skin: normal Swelling: none Tenderness: mild, located at base of great toe proximal phalanx. Deformity: No ROM: normal Strength: limited by pain Gait: normal. She is observed to run in the exam room and down the hallways. She jumps off the examtable and lands on the left foot without any obvious discomfort. Neurological Exam: normal Vascular Exam: normal RADIOGRAPHS: AP, lateral, & oblique xrays of the left foot show a nondisplaced fracture at the base of the great toe proximal phalanx. ASSESSMENT: left great toe proximal phalanx fracture PLAN: We recommend wear a hard sole shoe as needed. Fracture precautions were reviewed today. The patient will stay out of PE/sports until further notice. The patient will follow up in 3 week(s) and get an AP, lateral, & oblique xrays of the left great toe . They will call in the interim with questions or concerns. RVISOR METER SHOP * Katharina Bond RN - 10/07/2012 9:45 AM CST Patient injured her left toe while jumping up and hitting a table about 9 days ago. The next day she went to [facility] for xrays and evalution. She went to the following Saturday. She was sent here for further evaluation and treatment. She is complaining of a 6 on the pain scale at this moment. She takes alieve or IBU for pain control at home. She refuses to keep the toe wrapped in gauze. Mom reports it is fractured at the growth plate. RVISOR METER SHOP documented in this encounter Plan of Treatment Not on file documented as of this encounter Visit Diagnoses Diagnosis Fractured great toe Closed fracture of one or more phalanges of foot documented in this encounter Care Teams Neon Electrician Relationship Specialty Start Date End Date Geo Goyal MD [address] [place] [phone] PCP - General 08/24/09 01/15/22 documented as of this encounter
--- OUTSIDE RECORDS SUMMARY | 2024-08-02 02:36 | XMS_ITS | Encounter Summary ---
Author Organization [facility] Address [address] [place] [address] Care Team Providers Care Motel Manager Name Role Phone Geo Goyal MD Primary Care Provider [phone] Reason for Visit * Reason Comments Neurological Problem Has ADHD, ODD, and is bipolar according to mother. PCP wanted her to come see us so we could tell her what is wrong with her brain. Mom said she is also having tics where she jerks Encounter Details Date Type Department Care Team (Latest Contact Info) Description 09/17/2018 1:18 PM WAREHOUSE DELIVERY MANAGER - 09/17/2018 11:59 PM [facility] Hospital Encounter [facility] Pediatrics - Neurology [address] [place] [address]. [place] [address] Hugh Downey MD [address] [place] [address] Discharge Disposition: Home or Self Care Social [...] Sign Reading Time Taken Comments Blood Pressure 118/60 09/17/2018 2:11 PM WAREHOUSE DELIVERY MANAGER Pulse - - Temperature - - Respiratory Rate - - Oxygen Saturation - - Inhaled Oxygen Concentration - - Weight 43.8 kg (96 lb 9 oz) 09/17/2018 2:[address] Height 159.7 cm (5' 2.87 ) 09/17/2018 2:11 PM CS T Body Mass Index 17.17 09/17/2018 2:11 PM WAREHOUSE DELIVERY MANAGER Body Mass Index Percentile 8.09% 09/17/2018 2:1 1 PM WAREHOUSE DELIVERY MANAGER Growth Chart: [facility] (Girls, 2- 20 Years) documented in this encounter Discharge Instructions * Patient Instructions* Hugh Downey MD - 09/17/2018 3:12 PM WAREHOUSE DELIVERY MANAGER - Start Clonidine 0.1 mg at bedtime for tics - Call in 1 month with updates, if tics continue to be problematic can consider increase to clonidine 0.05 mg in the morning and 0.1 mg at night - Follow up in 3 months HOUSE DELIVERY MANAGER documented in this encounter Medications at Time of Discharge Medication Sig Dispensed Refills Start Date End Date atomoxetine (STRATTERA) 25 MG capsule Take by mouth every morning 01/16/2023 cloNIDine (CATAPRES) 0.1 MG tablet Take 1 tablet by mouth at bedtime 30 tablet 5 09/17/2018 01/16/2023 haloperidol (HALDOL) 0.5 MG tablet Take 0.5 mg by mouth every 6 hours as needed for Agitation 05/26/2019 polyethylene glycol 3350 (MIRALAX) powder Take 17 g by mouth 3 times daily 850 g 5 04/13/2016 05/26/2019 sertraline (ZOLOFT) 100 MG tablet Take 1 Tab by mouth 2 times daily. 60 Tab 0 02/01/2012 01/16/2023 documented as of this encounter Progress Notes * Hugh Downey MD - 09/17/2018 8:33 PM CST Images from the original note were not included. Pediatric Neurology Clinic new Visit Patient Name: Mae Frances : 2000 Date of Encounter: 09/17/2018 I had the pleasure of seeing your patient, Mae in the Neurology Clinic at [facility]. She was accompanied by her Mother. Mae is a 17 y.o. female with DMDD, bipolar disorder, and ADHD here due to tics. Mae developed tics approximately 6 months ago. 1st tic is described as gulping. Second tic is jerking of upper extremities. Both of these tics were present for approximately 4 months. Tics were not present for approximately 2 months following but few weeks ago same 2 tics again reappeared. Previously, Mae was taking clonidine but has been refusing to take clonidine recently as it makes her drowsierthe next morning. Mom has noted that reemergence of tics has corresponded to cessation of clonidine. Per mother, tics have been distraction at school. Mae reports that stressful situations, excitement, anxiety and sitting still will cause tics to reappear. She reports having urge prior to tics occurring which goes away after tics. No family history of tics. No history of seizures. Currently, Mae is taking Zoloft 125 mg in the morning and Strattera 25 mg in the morning. Past Medical History Medical History: Past Medical History: Diagnosis Date ??? ADHD (attention deficit hyperactivity disorder) ??? Aggression ??? Bipolar affective ??? Constipation, chronic ??? Headache(784.0) started approximately 2 years ago ??? Learning disability ??? ODD (oppositional defiant disorder) ??? S/P colonoscopy age 6y/o ??? Sensory integration disorder , Surgical History: Past Surgical History: Procedure Laterality Date ??? BIOPSY 01/31/2012 N/A; BIOPSY RECTAL ??? Tonsillectomy 2009 , Family history: Family History Problem Relation Age of Onset ??? Migraine Mother ??? ADHD Maternal Uncle Also patient's cousin ??? Bipolar Disorder Maternal Uncle Also patient's cousin ??? Other Other Cousin with chronic constipation and Social History: Social History Social History Narrative Lives with mother, sister, and step father. Currently in the 10th Grade. 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 Current Medications ??? atomoxetine (STRATTERA) 25 MG capsule Take by mouth every morning ??? cloNIDine (CATAPRES) 0.1 MG tablet Take 1 tablet by mouth at bedtime ??? haloperidol (HALDOL) 0.5 MG tablet Take 0.5 mg by mouth every 6 hours as needed for Agitation ??? polyethylene glycol 3350 (MIRALAX) powder Take 17 g by mouth 3 times daily ??? sertraline (ZOLOFT) 100 MG tablet Take 1 Tab by mouth 2 times daily. Allergies Allergies Allergen Reactions ??? Tegretol [Carbamazepine] Rash ??? Stimulant Laxative [Bisacodyl] Rash Review of Systems Review of Systems Constitutional: Negative for fever, malaise/fatigue and weight loss. HENT: Negative for congestion and nosebleeds. Eyes: Negative for blurred vision, double vision and photophobia. Respiratory: Negative for cough, shortness of breath and wheezing. Cardiovascular: Negative for chest pain and leg swelling. Gastrointestinal: Negative for constipation, diarrhea, nausea and vomiting. Genitourinary: Negative for dysuria, frequency and urgency. Musculoskeletal: Negative for back pain, falls and neck pain. Skin: Negative for rash. Neurological: Negative for loss of consciousness, weakness and headaches. Psychiatric/Behavioral: Negative for hallucinations, substance abuse and suicidal ideas. Vital Signs Height: Height: 159.7 cm (5' 2.87 ) Weight: Weight: 43.8 kg (96 lb 9 oz) <1 %ile (Z= -2.48) based on CDC 2-20 Years [id number] data using vitals from 04/13/2016 from contact on 04/13/2016. Blood Pressure: BP Readings from Last 1 Encounters: 09/17/18 118/60 Head Circumference: No head circumference on file for this encounter. BP: 118/60 Blood pressure percentiles are 81 % systolic and 30 % diastolic based on the March 2017 AAP Clinical Practice Guideline. Blood pressure percentile targets: 90: 123/77, 95: 126/81, 95 + 12 mmH/93. Body mass index is 17.17 kg/(m^2). 33 %ile (Z= -0.44) based on CDC 2-20 Years [id number] data using vitals from 09/17/2018. 7 %ile (Z= -1.45) based on CDC 2-20 Years urmiwm-dbf-rmp data using vitals from 09/17/2018. 8 %ile (Z= -1.40) based on CDC 2-20 Years BMI-for-age data using vitals from 09/17/2018. General: well developed, well nourished CV: RRR, no murmur Resp: CTAB, no wheezing Neurological Exam: MS: awake, alert, and interactive. Appropriately oriented. Cranial Nerves: II: Visual dee intact to counting fingers bilaterally by confrontation, fundoscopy shows sharp discs bilaterally III:Pupils are equal and briskly reactive from 5 to 3 mm bilaterally III,IV,: Extraocular muscles intact with no nystagmus or ptosis. V: Facial sensation intact to light touch bilaterally VII: Facial expressions symmetric VIII: Hearing intact to finger rub bilaterally IX: Palate elevates symmetrically X: Uvula midline XI: Shoulder shrug strong bilaterally XII: Tongue protrudes midline Motor: Abnormal Movements: none Bulk: appropriate Tone: appropriate Reflexes: 2+ throughout, plantar reflex downgoing Strength: 5/5 in all extremities Sensory: Intact to light touch,temperature and vibration Cerebellar: Normal FNF and ELVIA's. Steady in Romberg stance Gait: Normal toe, heel, and tandem gait. Assessment and Plan Tic disorder 17 y.o. F with DMDD, Bipolar disorder [...] preference to start medication discussed with both Maeand mother about restarting Clonidine at lower dose to attempt to decrease frequency of tics. - Clonidine 0.1 mg at night, instructed to call in month if tics continue to be issue to potentially increase to Clonidine 0.05 in morning and 0.1 mg at night Follow-Up Return in about 3 months (around 12/15/2018). MD Shayan CC: Geo Goyal MD [address] [place] [address] #5 / [facility] [id number] Date: 09/17/2018 8:55 PM HOUSE DELIVERY MANAGER Associated attestation - Heath De Jesus MD - 09/23/2018 4:24 PM WAREHOUSE DELIVERY MANAGER 09/17/2018 Attending Note: I saw and examined the patient with the Fellow and agree with their findings. Briefly, Mae Frances is a 17 y.o. girl who presents to neurology for evaluation of TICS. These are noted to be gulping episodes and jerking of extremities. Was initially started on Clonidine but caused some drowsiness hence stopped. She has had increased frequency of tics that have been a social concern and affecting activities of daily life. In addition has ADHD and bipolar disorder. Exam is intact with patient alert, oriented to self, place, time. Comprehension intact. Speech is fluent. PERRLA. EOMI. CN 2-12 intact. Strength 5/5 B/L. DTR 2+ symmetric. Sensations intact to LT/PP/Vib/Temp. No dysmetria. Able to tandem, toe and heel walk. Discussed with mother that we would like to restart clonidine at a lower dosage of 0.1 mg at bedtime. Call in 1 month, if continued increased frequency then will add half a pill in the morning, continuing a pill at night. Follow up with in 3 months. Heath De Jesus MD Pediatric Neurologist/Epileptologist documented in this encounter Plan of Treatment Not on file documented as of this encounter Visit Diagnoses * Assessment & Plan Note - Hugh Downey MD - 09/17/2018 8:51 PM WAREHOUSE DELIVERY MANAGER Associated Problem(s): Tic disorder 17 y.o. F with DMDD, Bipolar disorder [...] preference to start medication discussed with both Maeand mother about restarting Clonidine at lower dose to attempt to decrease frequency of tics. - Clonidine 0.1 mg at night, instructed to call in month if tics continue to be issue to potentially increase to Clonidine 0.05 in morning and 0.1 mg at night HOUSE DELIVERY MANAGER documented in this encounter Care Teams Motel Manager Relationship Specialty Start Date End Date Geo Goyal MD [address] [place] [id number] PCP - General 08/24/09 01/15/22 documented as of this encounter
--- OUTSIDE RECORDS SUMMARY | 2024-08-02 02:36 | XMS_ITS | Encounter Summary ---
Author Organization [facility] Address [address] [place] [address] Care Team Providers Care Lockstitch Coat Joiner Name Role Phone Geo Goyal MD Primary Care Provider [phone] Reason for Visit * Reason Comments Pain Abdominal pt with hx of consti pation. last BM this AM. followed by GI here. Encounter Details Date Type Department Care Team (Late st Contact Info) Description 05/26/2019 11:03 AM CDT - 05/26/2019 1:33 PM CDT Emergency ER at [address] [address] Manju Meyer MD [address] [place] [address] [place] [address] Constipation, unspecified constipation type (Primary Dx); Chronic constipation Discharge Disposition: Home or Self Care Social [...] Sign Reading Time Taken Comments Blood Pressure 88/61 05/26/2019 11:02 AM CDT Pulse 76 05/26/2019 11:02 AM CDT Temperature 37 ??C (98.6 ??F) 05/26/2019 11: 02 AM CDT Respiratory Rate 36 05/26/2019 11:0 2 AM CDT Oxygen Saturation - - Inhaled Oxygen Concentration - - Weight 44.9 kg (98 lb 15.8 oz) 05/26/20 19 11:02 AM CDT Height 162 cm (5' 3.78 ) 05/26/2019 11: 02 AM CDT Body Mass Index 17.11 05/26/2019 11:02 AM CDT Body Mass Index Percentile 5.37% 05/26 11:02 AM CDT Growth Chart: [facility] (Girls, 2- 20 Years) documented in this encounter Discharge Instructions * Discharge Instructions* Lazaro Lowe MD - 05/26/2019 1:01 PM CDT Use miralax daily. Take colace daily. Use ex-lax as that has worked for you in the past. Schedule follow up with GI as soon as possible to continue your care. Schedule follow up with your primary care physician as needed. * Attachments The following attachments cannot be sent through Care Everywhere. * Constipation in Children (AfterCare(R) Instructions(ER/ED)) (Setswana) documented in this encounter Medications at Time [...] times daily 850 g 5 05/26/2019 01/16/2023 Sennosides (EX-LAX) 15 MG chew tablet Take 1 tablet by mouth nightly as needed 30 tablet 05/26/2019 06/25/2019 sertraline (ZOLOFT) 100 MG tablet Take 1 Tab by mouth 2 times daily. 60 Tab 0 02/01/2012 01/16/2023 documented as of this encounter ED Notes * Estefania Glover RN - 05/26/2019 1:32 PM CDT Pt awake and alert in room. Parent was given discharge instructions and educated on use of medications. Parent verbalized understanding and had no further questions or concerns. Pt in no apparent distress or discomfort. Pt was discharged and walked out with parent. * Mitch Manju - 05/26/2019 12:19 PM CDT Provider contact with the patient: 05/26/2019 12:19 PM [facility] EMERGENCY DEPARTMENT Mae Frances [id number] History Chief Complaint Patient presents with ??? Pain Abdominal pt with hx of constipation. last BM this AM. followed by GI here. Chief complaint narrative was entered by triage nurse, not by physician. I have read the resident/medical student/PELT DROPPER history. Unless appended by me below, I agree with findings as documented. HPI History provided per: Mother and patient Mae Frances is a 18 year old female with history of ADHD, bipolar disorder, ODD, aggression, and constipation who presents with constipation. Mom reports that pt has been constipated throughout her whole life, has taken various laxative medications in the past (including Miralax), and has been seen by GI (most recent visit was in 04/2016; workup has included a barium enema and rectal suction biopsy). Pt's constipation worsened on Saturday (4 days ago). Pt is unable to say how often she hasbowel movements. Mom reports that pt has small amounts of liquid stool. Pt is unable to describe her stools in response to my questions. Her most recent bowel movement was this morning and was small.Mom reports that pt frequently feels like she needs to have a bowel movement but is unable to stool. Pt denies any recent abdominal pain. She vomited once two days ago, but currently denies any nausea. She has been eating and drinking normally. Mom reports that pt has not taken Miralax recently - mom used to give it to her daily (mom is unable to state when this was) but pt was having diarrhea somom reports that her PMD told her to stop giving it. Mom states that she has been giving pt a fiber pill daily for the past week. Mom also states that dairy products make pt's constipation worse, and pt recently ate several pudding cups not realizing that they contained dairy. PMH: ADHD, bipolar disorder, ODD, aggression, and constipation; no surgeries; immunizations UTD permother. Allergies Allergen Reactions ??? Tegretol [Carbamazepine] Rash ??? Stimulant Laxative [Bisacodyl] Rash Past Medical History: Diagnosis Date ??? [...] file Occupational History ??? Not on file Social Needs ??? Financial resource strain: Not on file ??? Food insecurity: Worry: Not on file Inability: Not on file ??? Transportation needs: Medical: Not on file Non-medical: Not on file Tobacco Use ??? Smoking status: Never Smoker ??? Smokeless tobacco: Never Used Substance and Sexual Activity ??? Alcohol use: No ??? Drug use: No ??? Sexual activity: Not on file Lifestyle ??? Physical activity: Days per week: Not on file Minutes per session: Not on file ??? Stress: Not on file Relationships ??? Social connections: Talks on phone: Not on file Gets together: Not on file Attends protestant service: Not on file Active member of club or organization: Not on file Attends meetings of clubs or organizations: Not on file Relationship status: Not on file ??? Intimate partner violence: Fear of current or ex partner: Not on file Emotionally abused: Not on file Physically abused: Not on file Forced sexual activity: Not on file Other Topics Concern ??? Special Diet Not Asked Social History Narrative Lives with mother, sister, and step father. Currently in the 10th Grade. 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 Family History Problem Relation Age of Onset ??? Migraine Mother ??? ADHD Maternal Uncle Also patient's cousin ??? Bipolar Disorder Maternal Uncle Also patient's cousin ??? Other Other Cousin with chronic constipation Patient's Medications New Prescriptions No medications on file Previous Medications ATOMOXETINE (STRATTERA) 25 MG CAPSULE Take by mouth every morning CLONIDINE (CATAPRES) 0.1 MG TABLET Take 1 tablet by mouth at bedtime POLYETHYLENE GLYCOL 3350 (MIRALAX) POWDER Take 17 g by mouth 3 times daily SERTRALINE (ZOLOFT) 100 MG TABLET Take 1 Tab by mouth 2 times daily. Modified Medications No medications on file Discontinued Medications HALOPERIDOL (HALDOL) 0.5 MG TABLET Take 0.5 mg by mouth every 6 hours as needed for Agitation Review of Systems All relevant systems reviewed and all negative except as noted in resident/medical student/PELT DROPPER and attending HPI/ROS. Gen: negative Skin: negative HEENT: negative CV: negative Resp: negative GI: +constipation. Musculoskeletal: negative Neurologic: negative Psychiatric: negative Physical Exam I have reviewed the resident/medical student/PELT DROPPER physical exam. Unless appended by me below, I agreewith the PE as documented. Vitals: 05/26/19 1102 BP: (!) 88/61 Pulse: 76 Resp: (!) 36 Temp: 98.6 ??F (37 ??C) Weight: 44.9 kg (98 lb 15.8 oz) Height: 162 cm (63.78 ) Constitutional: adolescent female in NAD HEENT: head NC/AT, no drainage from ears or nose, MMM Cardiovascular: RRR, no murmur Pulmonary: Normal respiratory effort. Breath sounds clear and equal bilaterally; no wheezing, rales, or rhonchi. Abdominal: S/NT/ND, +firm mass in L center of abdomen Extremities: WWP Neurological: alert, follows commands, responds to questions, moves all four extremities well Nursing notes and vitals reviewed. Procedures Procedures: None. Labs/Orders Orders Placed This Encounter ??? XR ABD OBSTRUCTION SERIES 2VW ??? HCG URINE QUAL POCT NOTIFICATION XR ABD OBSTRUCTION SERIES 2VW (Results Pending) No results found for this visit on 05/26/19. ED Course Initial Assessment & Plan: 18 year old female with history of chronic constipation who presentswith constipation and stool leakage. I had a lengthy discussion with pt's mother about constipation. I explained that pt's history is consistent with impacted stool causing a partial obstruction, andthat it is important that pt do a cleanout, then continue maintenance dose Miralax. I recommended starting the Miralax at 1 capful in 8 oz of fluid three times daily, and also giving senna or any other laxative pt has tried before that has worked well for her. Mom can continue the fiber pill and also start pt on a probiotic if she would like. I instructed pt to increase her fluid intake and drinklots of water and/or prune juice. I also recommended establishing a bowel routine and putting pt's feet on a stepstool when she is on the toilet. Mom and pt verbalized understanding. I offered pt an enema, which she declined. I offered inpatient admission for a cleanout, which pt declined - mom states that she feels comfortable doing the cleanout at home. Resident physician ordered an xray, but pt is arguing against it and wants to go home. I agreed to this plan and emphasized the importance ofstarting the cleanout as soon as they get home. Mom verbalized understanding. Medical Decision Making Differential Diagnosis: constipation, stool impaction Medical Decision Making I have reviewed the: Previous Chart, Nursing Notes, Vitals. I have interpreted the following results: Oxygen Saturation. I have discussed the case with Family/Caregiver. The total time providing critical care (excluding time spent for procedures) was: 0 minutes. Clinical Impression and Disposition Final Diagnosis: Final diagnoses: Constipation, unspecified constipation type (Primary) Chronic constipation 12:57 PM The patient remains stable at the time of discharge. Our clinical impression was discussedand results were reviewed. The patient and guardian were given the opportunity to ask questions, and we addressed them as completely as possible given the information available at present. The therapeutic plan was discussed, instructions were given and the importance of primary care follow up was stressed and encouraged. The patient and guardian voiced understanding of the plan, indications to return, and the need for follow up. New Medications: New Prescriptions No medications on file I have advised the patient to follow-up with: [facility] [address] [facility] [address] Schedule an appointment as soon as possible for a visit to continue care of your chronic constipation Disposition: Discharged 05/26/2019 12:57 PM Scribe Attestation By signing my name below, I, Lilian Jacksonadrianagasper, attest that this documentation has been prepared under the direction and in the presence of Dr. Meyer. Electronically Signed: Lilian Borjas 05/26/2019 12:19 PM Provider Attestation I, Dr. Meyer, personally performed the services described in this [...] With respect to physicians in training and mid- level providers, I, Dr. Meyer, agree with the assessment and plan except if revised in my note. * Annamarie Brar, SHANELL - 05/26/2019 12:13 PM CDT Pt ambulatory to restroom to change into gown for abdominal xray at this time. * Lazaro Lowe MD - 05/26/2019 11:23 AM CDT EMERGENCY DEPARTMENT 05/26/2019 Dear Doctor, We had the pleasure of caring for your patient, Mae Frances in our emergency department on 05/26/2019. A note from the provider(s) who cared for your patient is attached. Should you wish to access any laboratory results, please call . Should you wish to access any radiology results, please call , option 3. In addition, you can access patient information 24 hours a day, from any computer, through [facility], the online version of our electronic medical record. If you would like to use this service, please call Jadyn Zazueta, Connectivity Coordinator, at . We appreciate the opportunity to care for your patients. If you would like additional information, please call the emergency department directly at . Sincerely, Lazaro Lowe MD Division of Emergency Medicine [facility], [place] [facility] EMERGENCY DEPARTMENT Mae Frances [id number] EMERGENCY DEPT History Chief Complaint Patient presents with ??? Pain Abdominal pt with hx of constipation. last BM this AM. followed by GI here. HPI Mae Frances is a 18 year old female with PMH of constipation presenting to the ED with constipation. Patient states difficulty with BMs since . Previous workup by GI including colonoscopy showed dilated rectum and stenosis of colon. Per mom, this has caused constipation. Previously on bowel regimen. Has not been taking medications most days for last few weeks. Presents today with constipation. Denies abdominal pain. States had small BM nonbloody this AM. Patient does not wish to bein ER. Patient and mother do not wish to have enema or for imaging. Denies further symptoms. Stateshas had some leakage of watery stool but states this is not abnormal for her. Denies fever. Past Medical History: Diagnosis Date ??? ADHD [...] file Occupational History ??? Not on file Social Needs ??? Financial resource strain: Not on file ??? Food insecurity: Worry: Not on file Inability: Not on file ??? Transportation needs: Medical: Not on file Non-medical: Not on file Tobacco Use ??? Smoking status: Never Smoker ??? Smokeless tobacco: Never Used Substance and Sexual Activity ??? Alcohol use: No ??? Drug use: No ??? Sexual activity: Not on file Lifestyle ??? Physical activity: Days per week: Not on file Minutes per session: Not on file ??? Stress: Not on file Relationships ??? Social connections: Talks on phone: Not on file Gets together: Not on file Attends protestant service: Not on file Active member of club or organization: Not on file Attends meetings of clubs or organizations: Not on file Relationship status: Not on file ??? Intimate partner violence: Fear of current or ex partner: Not on file Emotionally abused: Not on file Physically abused: Not on file Forced sexual activity: Not on file Other Topics Concern ??? Special Diet Not Asked Social History Narrative Lives with mother, sister, and step father. Currently in the 10th Grade. 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 Medications Current Outpatient Medications Medication Sig Dispense Refill ??? atomoxetine (STRATTERA) 25 MG capsule Take by mouth every morning ??? cloNIDine (CATAPRES) 0.1 MG tablet Take 1 tablet by mouth at bedtime 30 tablet 5 ??? polyethylene glycol 3350 (MIRALAX) powder Take 17 g by mouth 3 times daily 850 g 5 ??? sertraline (ZOLOFT) 100 MG tablet Take 1 Tab by mouth 2 times daily. 60 Tab 0 Review of Systems Review of Systems Constitutional: Negative for chills, diaphoresis and fever. HENT: Negative for congestion, rhinorrhea, sore throat, tinnitus and trouble swallowing. Eyes: Negative for pain. Respiratory: Negative for cough, chest tightness, shortness of breath, wheezing and stridor. Cardiovascular: Negative for chest pain. Gastrointestinal: Positive for constipation. Negative for abdominal distention, abdominal pain, diarrhea, nausea and vomiting. Genitourinary: Negative for difficulty urinating, dysuria and hematuria. Musculoskeletal: Negative for back pain and neck pain. Neurological: Negative for light-headedness and headaches. All other systems reviewed and are negative. BP (!) 88/61 Pulse 76 Temp 98.6 ??F (37 ??C) (Oral) Resp (!) 36 Ht 162 cm (63.78 ) Wt 44.9 kg (98 lb 15.8 oz) LMP 04/13/2019 BMI 17.11 kg/m?? Physical Exam Physical Exam Constitutional: She is oriented to person, place, and time. She appears well- developed and well-nourished. HENT: Head: Normocephalic and atraumatic. Eyes: Pupils are equal, round, and reactive to light. Conjunctivae and EOM are normal. Neck: Normal range of motion. No tracheal deviation present. Cardiovascular: Normal rate and regular rhythm. Pulmonary/Chest: Effort normal. No stridor. Abdominal: Soft. There is no hepatosplenomegaly. There is no tenderness. Lower abdomen full to palpation Musculoskeletal: Normal range of motion. Neurological: She is alert and oriented to person, place, and time. Skin: She is not diaphoretic. Nursing note and vitals reviewed. Procedures Procedures Lab/SPO2 Interpretation Progress Notes ED Course Clinical Impressions as of May 26 1346 Constipation, unspecified constipation type Chronic constipation Medical Decision Making Clinical diagnosis -constipation Differential Constipation vs SBO vs vs other Plan -Labs -Imaging -Symptom control -Reassess ED Course ?? Patient seen and evaluated, available studies reviewed ?? Initial workup and treatment plan discussed with patient and provided opportunity to ask questions ?? Patient is 18 year old female presenting with constipation, Hx constipation ?? Patient denies abdominal pain at this time ?? bm this AM ?? Not taking bowel regimen ?? D/w patient enema v XR obstructive series ?? Patient declines ?? Patient would like to restart bowel regimen and f/u to GI ?? Rx provided, number for F/u given ?? Dose miralax given in ED ?? Patient tolerated ?? Patient discharged -I have reviewed the diagnostic findings with the patient and they have had an opportunity to ask me any questions they have about care, diagnosis and discharge plan. The patient is comfortable with the discharge plan and demonstrates understanding of return precautions. They will follow up as dire onesimo and will return to the ER if their condition worsens or if they develop other urgent concerns. documented in this encounter Plan of Treatment Not on file documented as of this encounter Procedures Procedure Name Priority Date/Time Associated Diagnosis Comments HCG URINE QUAL POCT NOTIFICATION STAT 05/26/2019 2:00 PM CDT documented in this encounter Results * HCG URINE QUAL POCT NOTIFICATION (05/26/2019 2:00 PM CDT) Comment Notification Label Only - See Separate Report 05/26/2019 2:00 PM CDT [facility] Urine URINE / Unknown 9 12:43 PM CDT Manju Meyer MD LAB - URINALYSIS ORD ERABLES [facility] [place] [address] documented in this encounter Visit Diagnoses Diagnosis Constipation, unspecified constipation type- Primary Chronic constipation Unspecified constipation documented in this encounter Administered Medications Inactive Administered Medications - up to 3 most recent administrations Medication Order MAR Action Action Date Dose Rate Site polyethylene glycol 3350 (MIRALAX) packet 17 g 17 g (0.379 g/kg), Oral, ONCE, 1 dose, On Sat05/26/19 at 1330, Mix in 8 ounces of water, juice, soda, coffee or tea prior to administration $ Given 05/26/2019 1:11 PM CDT 17 g polyethylene glycol 3350 (MIRALAX) packet ADS Med 1 dose, Starting on Sat05/26/19 at 1308, Until Sat05/26/19 at 1311, Susana Aponte: cabinet override documented in this encounter Active and Recently Administered Medications Times are shown in CDT. Scheduled Medication Order 05/24/2019 05/25/2019 05/26/2019 polyethylene glycol 3350 (MIRALAX) packet 17 g (COMPLETED) 17 g (0.379 g/kg), Oral, ONCE, 1 dose, On Sat05/26/19 at 1330, Mix in 8 ounces of water, juice, soda, coffee or tea prior to administration 1311 ($ Given - Prov ider: Susana Aponte RN)1330 (Due) documented in this encounter Care Teams Lockstitch Coat Joiner Relationship Specialty Start Date End Date Geo Goyal MD [address] [place] [address] PCP - General 08/24/09 01/15/22 documented as of this encounter
--- OUTSIDE RECORDS SUMMARY | 2024-08-02 02:36 | XMS_ITS | Encounter Summary ---
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 distraction and [...] y.o. 3 m.o. : 2000 Medical Record: [id number] I attempted to interview pt; however, she [...] follow-up care at discharge. Familypreservation services through [place] [facility] services may also be able toprovide in-home therapy and parent training necessary to change chronic maladaptive patterns. Dr. Bree Hermosillo is available for consultation this afternoon, pager: [phone] Sakina Lopez, PhD Clinical Psychologist [place] License [id number] * Tory Pineda LCSW - 01/25/2012 12:06 PM CDTAssociated Order(s): IP CONSULT TO BARIATRIC PROGRAM COORDINATOR New consult received on pt today, worker in contact with Sakina Funes, Psychology, with Dr Swapna Guy, with 3 So RN and telephoned pt's mother Mother coming in later today, will meet with her about care and treatment of pt with chronic constipation. Mother state she is in the process of moving from [place] to [place], [place] Tory Pineda LCSW [phone] * Tory Pineda LCSW - 01/23/2012 2:41 PM CDT SOCIAL SERVICE CONSULT - Reason for Referral: Gas money at time of discharge Assessment/Interventions/Plan: Cbx Operator responding to referral from 3 So RN, Ophelia. Pt, a 11yo W/F admitted for chronic constipation being d/c'd home today. Mother told the RN she could come to get pt but would not have enough gas for the trip back to [place], [place] where the family has moved. Spoke to pt's mother when she arrived for the discharge. Mother said she had to make a trip to [place], [place] and back to get pt's medication [...] Case closed to social service, worker available YUDY Pineda LCSW [phone] documented in this encounter OR Notes * Operative - Sirisha Martinez MD - 01/31/2012 12:14 PM CDT PEDIATRIC SURGERY OPERATIVE NOTE Patient name: Mae Frances Date of Procedure: 01/31/2012 Preoperative diagnosis: Chronic constipation Postoperative diagnosis: Same Procedure performed: Full-thickness rectal biopsy Surgeon: Geraldo Worley MD Oncology Transplant Network Manager: Sirisha Martinez MD Anesthesia: General endotracheal anesthesia [...] prepped and draped in standard fashion. A [place] retractor was placed to exposethe rectum above [...] PM CDT This tech transported pt to [facility] by wheel chair. Pt left in room with Evin RN and mother and sister. * Aditi Lara RN - 01/22/2012 6:08 PM CDT Returned from [facility] * Autumn Monzon MD - 01/22/2012 [...] hours a day, from any computer, through [employer] the online version of our electronic medical record. If you would like to use this service, please call Jadyn Zazueta, Connectivity Coordinator, at . We appreciate the opportunity to care for your patients. If you would like additional information, please call the emergency department directly at . Sincerely, Autumn Monzon MD Division of Emergency Medicine [place], [place] [facility] [place] DESIGNATED EMERGENCY DEPARTMENT Provider contact with the patient: 01/22/2012 5:27 PM Mae Frances [id number] [facility] EMERGENCY DEPT History Chief Complaint Patient [...] hours a day, from any computer, through [employer] the online version of our electronic medical record. If you would like to use this service, please call Jadyn Zazueta, Connectivity Coordinator, at . We appreciate the opportunity to care for your patients. If you would like additional information, please call the emergency department directly at . Sincerely, Crystal Guzman MD Division of Emergency Medicine [facility], [place] [facility] [place] TRAU[facility] I DESIGNATED EMERGENCY DEPARTMENT Provider contact with the patient: 01/22/2012 5:13 PM Mae Frances [id number] [facility] EMERGENCY DEPT History Chief Complaint Patient [...] Clinical Impression Encounter Diagnosis Name Primary? Constipation Crystal Guzman MD documented in this encounter Miscellaneous [...] 012 12:56 PM CDT IP CONSULT TO BARIATRIC PROGRAM COORDINATOR Routine 01/25/2012 12:09 PM CDT BASIC METABOLIC [...] ? 02/01/2012 ??1:38 PM Referral made to [facility] [phone] re: home visits. Kamini Sharif RN-Case Management [phone] P [phone] Procedure Note Kamini Sharif RN, RN - 02/01/2012 1:38 PM CDT Referral made to [facility] [phone] re: home visits. 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 ?? Has tried Miralax, mag citrate, and [...] ??F 97.8 ??F 97 ??F ?? Resp: Weight: ? SpO2: ? General appearance: No [...] 97.8 ??F 97 ??F ??97 ??F Resp: Weight: ? SpO2: ? Intake/Output Summary (Last [...] WBC,RBC,HGB,HCT,MCV,MCH,MCHC,RDW,PLTCOUNT,SEGPCT,BANDPCT,LYMPHPCT, ATYPLYMPHPCT,MONOCYTPCT,EOSINPCT,BASOPHILPCT,METAPCT,MYELOCYTPCT,P ROMELOPCT,BLASTPCT,PLASMAPCT,NRBC,GRANPCT,MONOCYTPCT,EOSINPCT,BASO PHILPCT in the last [id number] hours Assessment and Plan 11 yo female [...] Case Report Surgical Pathology Report ? Case: [id number] ? Authorizing Provider: ??Patric Good MD ?Ordering Provider: ?? Geraldo Worley MD ? Ordering Location: ? [facility] ?Collected: ? 01/31/2012 11:57 AM ? Pathologist: ? Berenice Wilson MD ? Received: ?01/31/2012 12:56 PM ?Signed Out: ?02/01/2012 ??5:08 PM (Final) ? Specimen: ?Rectum ? 02/01/2012 5:08 PM [facility] Final Diagnosis RECTUM, SUCTION BIOPSY: - GANGLION CELLS PRESENT (SEE COMMENT). COMMENT: While the size of this biopsy is adequate in the usual age group (neonates) in which suction biopsy is performed, it is suboptimal for a 11 year old patient in that it contained only mucosa, muscularis mucosa and a thin superficial portion of the submucosa. 02/01/2012 5:08 PM [facility] Clinical History The patient is a 11-year-old girl, with chronic constipation, who underwent fecal disimpaction, proctosigmoidoscopy and rectal biopsy to rule-out Hirschsprung's disease. 02/01/2012 5:08 PM [facility] Gross Description The specimen is received [...] other half is frozen for acetylcholinesterase stain. (GAILF/roberto) 02/01/2012 5:08 PM CDT [facility] Microscopic Description 10 H&E. Examination of 38 levels of the rectal suction biopsy revealed two ganglion cells; there are no hypertrophic nerve trunks. 02/01/2012 5:08 PM T [facility] Disclaimer The performance characteristics of all immunohistochemical and indirect ??immunofluorescence stains (if any) cited in this report were determined by the Histopathology Laboratory of [facility] (immunohistochemistry) or the Histology Laboratory of [facility] (indirect immunofluorescence) in compliance with CLIA `88 regulations. ??Some of these tests rely on the use of analyte-specific reagents and are subject to specific labeling requirements by the FDA. ??Such tests were developed by the ??[facility] of [facility] or the Histology Laboratory of [facility] and have not been cleared or approved by the FDA. ??The FDA has determined that such clearance or approval is not necessary. ??These tests are used for clinical purposes and should not be regarded as investigational or for research. ? This case has been personally reviewed and interpreted by the attending (teaching) pathologist. 02/01/2012 5:08 PM CDT [facility] Miscellaneous samples (specimen) ENTIRE RECTUM / Unknown 01/31/2012 11:57 AM CDT 01/31/2012 12:56 PM CDT Patric Good MD LAB - PATHOLOGY/CYTO LOGY ORDERABLES [facility] [address] [facility] [place] [address] * [place] LOWER GI WATER SOLUBLE (01/29/2012 [...] (ABNORMAL) COMPREHENSIVE METABOLIC PANEL (01/27/2012 5:01 AM [facility]) Glucose 92 70 - 105 mg/dL 01/27/2012 6:15 AM [facility] Sodium 141 136 - 145 mmol/L 01/27/2012 6:15 AM [facility] Potassium 3.5 3.5 - 5.1 mmol/L 01/27/2012 6:15 AM [facility] Chloride 102 98 - 107 mmol/L 01/27/2012 6:15 AM [facility] CO2 26 20 - 28 mmol/L 01/27/2012 6:15 AM [facility] Calcium 9.13 9.12 - 10.48 mg/dL 01/27/2012 6:15 AM [facility] Anion Gap 13 5 - 20 mmol/L 01/27/2012 6:15 AM [facility] BUN 4.5(L) 6.7 - 19.6 mg/dL 01/27/2012 6:15 AM [facility] Creatinine 0.39(L) 0.53 - 0.80 mg/dL 01/27/2012 6:15 AM [facility] eGFR by MDRD ml/min/1. 73m2 01/27/2012 6:15 AM [facility] Comment:eGFR calculations ar e not performed for children under 18 years old. eGFR by MDRD ml/min/1. 73m2 01/27/2012 6:15 AM [facility] Comment:eGFR calculations ar e not performed for children under 18 years old. Alkaline Phosphatase 139 100 - 320 U/L 01/27/2012 6:15 AM [facility] ALT 19 8 - 65 U/L 01/27/2012 6:15 AM [facility] AST 35 3 - 35 U/L 01/27/2012 6:15 AM [facility] Protein Total 5.5(L) 6.2 - 9.1 gm/dL 01/27/2012 6:15 AM [facility] Albumin 3.2(L) 3.6 - 4.9 gm/dL 01/27/2012 6:15 AM [facility] Bilirubin Total 0.5 0.3 - 1.2 mg/dL 01/27/2012 6:15 AM CDT [facility] Blood specimen (specimen) BLOOD SPECIMEN / Unknown 01/27/2012 5:01 AM CDT 01/27/2012 5:27 AM CDT Helena Phoenix MD LAB - CHEMISTRY ERIN AGUILAR [facility] Organization Address City/State/ZIP Co de Phone Number [facility] [address] [place] [address] * IP CONSULT TO PSYCHOLOGY (01/25/2012 1:17 PM CDT) Narrative Sakina Lopez, PhD - 01/25/2012 1:17 PM CDT Sakina Lopez, PHD ? 01/25/2012 ??1:17 PM Inpatient Psychology Consultation Name: ??Mae Frances Age: ??11 ??y.o. 3 ??m.o. : ??2000 Medical Record: [id number] I attempted to interview pt; however, she refused to waken despite repeated efforts. ??Spoke with Tory Pineda and Petra Brooks regarding concerns about social factors. ??No [...] care at discharge. ??Family preservation services through [place] [facility] services may also be able to provide in-home therapy and parent training necessary to change chronic maladaptive patterns. ?? Dr. Bree Hermosillo is available for consultation this afternoon, pager: [phone] Sakina Lopez, PhD Clinical Psychologist [place] License [id number] Procedure Note Sakina Lopez, PhD - 01/25/2012 12:53 PM CDT Inpatient Psychology Consultation Name: Mae Frances Age: 11 y.o. 3 m.o. : 2000 Medical Record: [id number] I attempted to interview pt; however, she [...] [facility] may also be able to provide in-home therapyand parent training necessary to change chronic maladaptive patterns. Dr. Bree Hermosillo is available for consultation this afternoon, pager:[phone] Sakina Lopez, PhD Clinical Psychologist [place] License [id number] Swapna Guy MD INPATIENT CONSULT OR DERABLES * IP CONSULT TO CHILD LIFE (01/25/2012 12:56 PM CDT) Ginger Kumar CCLS - 01/25/2012 12:56 PM CDT DHRUV Lanier ? 01/25/2012 12:[address] Guy informed Child Life about patient's need for behavior modification. Araca created incentive chart and explained chart and consequences to patient. Patient acknowledged she understood information. Chart is located in patient's hard chart and in patient's room. [facility] Mae Frances [id number] Objective 1. ??Objective Information - Introduction: Patient is familiar to Child Life Services;Comfort measures offered 2. ??Diversional/Play Activities: Bedside activities provided;Diversional activities provided General Information Assessment Feelings: Expresses normal fear and anxiety.;Expresses anxiety related to pain. Assessment: Patient adjusting well to hospitalization at this time. Plan Child Life plan of care: Patient will be a primary followed by this Upper Lining Cementer.;Provide developmentally appropriate therapeutic activities.;Provide relaxation, distraction and soothing techniques.;Continue to assess patient needs for changes.;Child Life Services will conduct individual sessions with patient.;Encourage patient to attend playroom/teen activity.;Encourage peer interactions (if age-appropriate).;Provide opportunity for expression of emotions. DHRUV Lanier 01/25/2012 12:53 PM Procedure Note Ginger Wilkerson CCLS - 01/25/2012 12:[address] Guy informed [facility] about patient's need for behaviormodification. Araca created incentive chart and explained chart andconsequences to patient. Patient acknowledged she understood information.Chart is located in patient's hard chart and in patient's room. [facility] ASSESSMENT Mae Frances [id number] Objective 1. Objective Information - Introduction: Patient is familiar to [facility] Services;Comfort measures offered 2. Diversional/Play Activities: Bedside activities provided;Diversionalactivities provided General Information Assessment Feelings: Expresses normal fear and anxiety.;Expresses anxiety related topain. Assessment: Patient adjusting well to hospitalization at this time. Plan Child Life plan of care: Patient will be a primary followed by this ChildLife Specialist.;Provide developmentally appropriate therapeuticactivities.;Provide relaxation, distraction and soothingtechniques.;Continue to assess patient needs for changes.;Child LifeServices will conduct individual sessions with patient.;Encourage patientto attend playroom/teen activity.;Encourage peer interactions (ifage-appropriate).;Provide opportunity for expression of emotions. DHRUV Lanier 01/25/2012 12:53 PM Swapna Guy MD INPATIENT CONSULT OR DERABLES * IP CONSULT TO BARIATRIC PROGRAM COORDINATOR (01/25/2012 12:09 PM CDT) Narrative Tory Pineda LCSW - 01/25/2012 12:09 PM CDT Tory Pineda LCSW ? 01/25/2012 12:09 PM New consult received on pt today, worker in contact with Sakina Shantel, Psychology, with Dr Swapna Guy, with 3 So RN and telephoned pt's mother Mother coming in later today, will meet with her about care and treatment of pt with chronic constipation. ??Mother state she is in the process of moving from [place] to [place], [place] Tory CristinaPetra Pineda, [facility] [phone] Procedure Note Tory Pineda, [facility] - 01/25/2012 12:06 PM CDT New consult received on pt today, worker in contact with Sakina Funes,Psychology, with Dr Swapna Guy, with 3 So RN and telephoned pt'smother Mother coming in later today, will meet with her about care and treatmentof pt with chronic constipation. Mother state she is in the process ofmoving from [place] to [place], [place] Torykenna Pineda [facility] [phone] Swapna Guy MD INPATIENT ANCILLARY CONSULT * (ABNORMAL) BASIC METABOLIC PANEL (CALCIUM TOTAL) (01/22/2012 10:30 PM CDT) [facility] Signature Sodium 141 136 - 145 mmol/L 01/22/2012 11:01 PM [facility] Potassium 3.7 3.5 - 5.1 mmol/L 01/22/2012 11:01 PM [facility] Chloride 106 98 - 107 mmol/L 01/22/2012 11:01 PM [facility] CO2 19(L) 20 - 28 mmol/L 01/22/2012 11:01 PM [facility] Calcium 9.08(L) 9.12 - 10.48 mg/dL 01/22/2012 11:01 PM [facility] Anion Gap 16 5 - 20 mmol/L 01/22/2012 11:01 PM [facility] BUN 22.3(H) 6.7 - 19.6 mg/dL 01/22/2012 11:01 PM [facility] Creatinine 0.40(L) 0.53 - 0.80 mg/dL 01/22/2012 11:01 PM [facility] eGFR by MDRD ml/min/1. 73m2 01/22/2012 11:01 PM [facility] Comment:eGFR calculations ar e not performed for children under 18 years old. eGFR by MDRD ml/min/1. 73m2 01/22/2012 11:01 PM CDT [facility] Comment:eGFR calculations ar e not performed for children under 18 years old. Glucose 125(H) 70 - 105 mg/dL 01/22/2012 11:01 PM CDT [facility] Blood specimen (specimen) BLOOD SPECIMEN / Unknown 01/22/2012 10:30 PM CDT 01/22/2012 10:36 PM CDT Swapna Guy MD LAB - CHEMISTRY ERIN AGUILAR [facility] [address] [facility] [place] [address] * XR ABD OBSTR SERIES (01/22/2012 5:57 [...] soft tissue calcifications are present. Procedure Note Rian Gonzalez - 01/23/2012 Abdominal obstructive series AP upright [...] RDERABLES documented in this encounter Visit Diagnoses Not on filedocumented in this encounter Administered Medications Inactive Administered Medications - up to 3 most recent administrations Medication Order MAR Action Action Date Dose Rate Site 0.9% nacl irrigation bag PRN, Starting on Gladis 01/31/12 at 1134, Until Gladis 01/31/12 at 1236, Intra-op $ Given 01/31/2012 11:34 AM CDT 2,000 mL magnesium sulfate bolus IVPB in sterile IV fluid PRN, Starting on Sat01/31/12 at 1200, Until Gladis 01/31/12 at 1236, Intra-op $ Given 01/31/2012 12:00 PM CDT 0.5 g documented in this encounter Active and Recently [...] RN) 0143 ($ Given - Provider: Latonya Arias, SHANELL)0213 (Rx Stopped - Provider: Latonya Arias RN)0857 (Not Administered - Provider: Amy Yan (Sn) - Reason: Loss of Access)0927 (Due: Rx Stopped - Provider: Amy Yan (Sn)) QUEtiapine (SEROquel) tablet 100 mg(Linked Group 1) 100 mg (3.94 mg/kg), Oral, 2 TIMES DAILY, First dose on Sat01/22/12 at 2345, Until Discontinued 1310 ($ Given - Provider: Corine Monet RN)1907 ($ Given - Provider: Lisa Lerma RN) 1352 ($ Given - Provider: Corine Monet RN)1854 ($ Given - Provider: Madonna Charles RN) 1337 ($ Given - Provider: Amy Yan (Sn)) QUEtiapine (SEROquel) tablet 200 mg(Linked Group 1) 200 mg (7.87 mg/kg), Oral, EVERY MORNING, First dose on Sat01/23/12 at 0700, Until Discontinued 0701 ($ Given - Provider: Barry Del Rio RN) 0637 ($ Given - Provider: Barry Del Rio RN) 0710 ($ Given - Provider: Latonya Arias RN) sertraline (ZOLOFT) tablet 100 mg 100 mg [...] Rio RN)1854 ($ Given - Provider: Madonna Charles RN) 0710 ($ Given - Provider: Latonya Arias RN) Continuous Medication Order 01/30/2012 01/31/2012 02/01/2012 dextrose 5% and 0.45% NaCl with KCl 20 mEq infusion (CANCELED) at 65 mL/hr, Intravenous, CONTINUOUS, Starting on Gladis 01/31/12 at 0000, Until Sat02/01/12 at 0947 2353 ($ New Bag/Syringe - Provider: Barry Del Rio RN) isolyte-S pH 7.4 infusion (CANCELED) 65 mL/hr, Intravenous, POST-OP CONTINUOUS, Starting on Gladis 01/31/12 at 1315, Until Gladis 01/31/12 at 1340, Continue Fluids at current rates, [...] Discontinued documented in this encounter Care Teams Neon Sign Mechanic Relationship Specialty Start Date End Date Geo Goyal MD [address] [place] [id number] PCP - General 08/24/09 01/15/22 documented as of this encounter
--- OUTSIDE RECORDS SUMMARY | 2024-08-02 02:36 | XMS_ITS | Encounter Summary ---
Author Organization [facility] Address [address] [place] [address] Care Team Providers Care Knot Borer Name Role Phone Geo Goyal MD Primary Care Provider [phone] Reason for Visit * Reason Comments Injury Foot left Encounter Details Date Type Department Care Team (Latest Contact Info) Description 12/16/2012 9:11 AM CDT - 12/16/2012 11:59 PM CDT Hospital Encounter [facility] Pediatrics - Orthopedics [address] [place] [address] Andres Anders PA-C [address] [place] [address] Discharge Disposition: Home or Self Care Social [...] * Patient Instructions* Andres Anders PA-C - 12/16/2012 9:42 AM CDT ORTHOPAEDIC CLINIC DISCHARGE INSTRUCTIONS SHEET Follow Up: As needed only -follow up in 1 month if she is having any pain, limping, or any other symptoms May resume PE, sports, and all activities as tolerated. School excuse: 12/16/2012 Ibuprofen (over the counter medication) may be used per instructions. If you have any questions or concerns in the interim, or if you need to schedule surgery for your child, you may contact our orthopedic office at . If you need to make a clinic appointment, please call . documented in this encounter Medications at Time [...] Progress Notes * Andres Anders PA-C - 12/16/2012 9:42 AM CDT PEDIATRIC ORTHOPAEDIC CLINIC NOTE NAME: Mae Frances DATE OF SERVICE: 12/16/2012 DATE: 2000 PCP: Geo Goyal HISTORY: Mae Frances is a 12 y.o. 2 m.o. female who present for follow up evaluation of a left great toe proximal phalanx fracture. She was last seen in clinic on 10/07/12 when she initially presented 9 days out from her injury. She was treated with a hard sole shoe, and we recommended a 3 week follow up visit. She is back today stating that she would like to be released back to all activities. Her mother also reports that she fell again, about a month ago, and possibly injured a different part of the left foot. She was seen by her PCP, and xrays on 12/01/12 indicated a healing metatarsal fracture vs stress fracture. They are here for follow up. Mae states that she is not having any pain or problems with the foot. Her mother states that she runs, jumps, and plays normally and has not been complaining of pain or walking with a limp for the past few weeks. The patient rates herpain as a 0 out of 10. The patient denies new onset of numbness in her lower extremities. MEDICATIONS: Current outpatient prescriptions:asenapine (SAPHRIS) 5 MG [...] at 01/31/12 1232 ALLERGIES: Allergies as of 12/16/2012 - reviewed 12/16/2012 Allergen Reaction Noted ??? Tegretol (carbamazepine) Rash 01/30/2010 ??? Stimulant laxative (bisacodyl) Rash 07/10/2010 IMMUNIZATIONS: Immunization status: stated as current, but no records available. PHYSICAL EXAMINATION: General appearance: alert, cooperative, no distress. She has good head control. No rashes or abnormal dyspigmentation Extremities: The uninjured right lower extremity was examined and demonstrated normal skin, normal range of motion and alignment of all joint, normal motor, sensory and vascular examination, and was without pain.It was used for comparison when examining the injured left lower extremity. General appearance: no acute distress The examination was performed out of splint/cast--she has not been immobilized Skin: normal Swelling: none Tenderness: none throughout great toe and 2nd metatarsal. She is nontender throughout the entire left foot/ankle Deformity: No ROM: normal, full and equal bilaterally Strength: normal Gait: normal, walks up on her toes and heels without pain or limitations Neurological Exam: normal Vascular Exam: normal RADIOGRAPHS: AP, lateral, and oblique xrays of the left foot from 12/01/12 show the great toe proximal phalanx fracture to be healed. She has periosteal reaction at the 2nd metatarsal. ASSESSMENT: 1. left great toe proximal phalanx fracture 2. Left 2nd metatarsal fracture PLAN: We reassured the family that Mae has healed both of these injuries. she may now gradually resume all activities as tolerated. If she has any difficulties returning to activities, or any pain/problems in 3-4 weeks, we recommend they return to clinic. If she returns to clinic we will repeat 3 views of the left foot. If she is doing well at that point, they do not need to follow up for this injury. The family was understanding of this plan and will follow up PRN. * Katharina Bond RN - 12/16/2012 9:13 AM CDT Patient was doing cartwheel and injured left foot. She was seen by urgent care and no xray was done. She was seen by PMD and he ordered xray and found fracture of left foot. The xrays were done at [place]. documented in this encounter Miscellaneous Notes * Miscellaneous Scans - Document, Scanned - 01/21/2013 11:03 AM CDT * Miscellaneous Scans - Document, Scanned - 01/14/2013 8:30 AM CDT documented in this encounter Plan of Treatment Not on file documented as of this encounter Visit Diagnoses Diagnosis Closed fracture of metatarsal bone(s) Closed fracture of one or more phalanges of foot documented in this encounter Care Teams Knot Borer Relationship Specialty Start Date End Date Geo Goyal MD [address] [place] [address] PCP - General 08/24/09 01/15/22 documented as of this encounter
--- OUTSIDE RECORDS SUMMARY | 2024-08-02 02:37 | XMS_ITS | Continuity of Care Document ---
Author Organization [facility] [address] Address [address] [place] [address] [place] [address] Assessment No assessment recorded. Plan of Treatment Reminders Order Date Submit Date Provider Last Modified By Organization Details Last Modified Time Details Appointments U/S OB GROWTH 2024 08:30A M ULTRASOUND Not available Not available Not available OB ROUTINE 2024 09:45A M Sakina Cantrell CNM Not available Not available Not available Lab None recorde d. Referral None recorde d. Procedures None recorde d. Surgeries None recorde d. Imaging US, obstetr ic, transva ginal 2023 024 [email or web address] [address], [address], [place], [address], 06/24/2024 21:16:39 US, obstetr ic, follow- up 2023 024 [email or web address] [address], [address], [place], [address], 06/24/2024 21:16:39 Medication Orders None recorde d. Patient TargetsNo targets recorded. Patient InstructionsNo instructions recorded. Reason for Referral None Reported. Results Created Date Observation Date Name Description Value Unit Range Abnormal Flag Note LastModifiedBy Organization Detail LastModifiedTime 04/01/20 24 04/02/2024 US, obste tric, nucha l trans lucen cy No observ ation record ed. [email or web address] [address], [place], [address], 04/02/2024 10:04:48 04/01/20 24 04/01/2024 US, obste tric, follo w-up No observ ation record ed. [email or web address] [address], [place], [address], 04/02/2024 08:29:18 05/26/20 24 05/26/2024 US, obste tric, 2nd or 3rd trime ster No observ ation record ed. [email or web address] [address], [place], [address], 05/27/2024 18:34:24 05/26/20 24 05/26/2024 US, obste tric, 2nd or 3rd trime ster No observ ation record ed. [facility] [address], [place], [address], 05/26/2024 18:10:56 06/24/20 24 06/24/2024 US, obste tric, trans vagin al No observ ation record ed. [email or web address] [address], [place], [address], 06/24/2024 12:45:58 06/24/20 24 06/24/2024 US, obste tric, follo w-up No observ ation record ed. [email or web address] [address], [place], [address], 06/24/2024 12:46:08 06/24/20 24 06/24/2024 US, obste tric, follo w-up No observ ation record ed. [email or web address] [address], [place], [address], 06/25/2024 09:19:38 Result Notes None recorded. Problems Name Problem SNOMED Code Status Onset Date Resolution Date Notes Provider Name and Address Organization Details Recorded Time 60363064 Active 2023 Corine Novak null, [facility] 4 18:26:41 History of chlamydia l infection 798634154 Active chl neg John Marquez null, [facility] 4 15:43:29 Alpha thalassem ia 30974888 Active 2023 silent carrier; low risk John Marquez null, [facility] 4 17:47:43 Low lying placenta 667036481 Active resolved Sakina Cantrell CNM [address], [place], [address], [facility] 12:41:38 Mixed anxiety and depressiv e disorder 327298899 Active 2023 Corine Novak null, [facility] 12:29:58 Problem Notes None recorded. Procedures Surgical History Date Name Laterality Status Provider Name and Address Organization Details Recorded Time 02/19/20 24 Date of Last Pap Smear completed Corine Novak [facility] 02/19/2024 15:34:35 12/26/19 23 Nexplanon Removal completed Jacey Chavez [facility] [address], [place], [address], [facility] 12/25/2022 15:19:15 09/07/19 23 Control Implant Insertion completed Jacey Chavez [facility]- [address], [place], [address], [facility] 09/07/2022 14:46:07 08/05/19 11 Tonsillectomy completed Corine Novak [facility] 10/17/2023 12:48:17 Imaging Results Imaging Date Name Status LastModified by Organization Details LastModified Time 06/24/2024 US, obstetric, transvaginal completed [email or web address] [address], [place], [address], 06/24/2024 12:45:58 06/24/2024 US, obstetric, follow-up completed [email or web address] [address], [place], [address], 06/24/2024 12:46:08 06/24/2024 US, obstetric, follow-up completed [email or web address] [address], [place], [address], 06/25/2024 09:19:38 Procedure Notes None recorded. Medical Equipment None Reported. Allergies Allergen ID Allergen Name Allergen Category Reaction Reaction Severity Criticality Documentation Date Start Date Code Code System Note Provider Name and Address Organization Details Recorded [facility] Not [facility] Not available Not available 04/01/2024 [facility] Corine Novak [facility] 18:25:07 Medications Name Sig Start Date Stop Date Status Note LastModified by Organization Details LastModified Time tretinoin 0.1 % topical cream 07/14 completed Not Available Not Available Not Available amoxicillin 500 mg capsule 11/21 completed Not Available Not Available Not Available clindamycin HCl 300 mg capsule Take 1 capsule twice a day by oral route for 7 days. 03/20 completed Not Available Not Available Not Available azithromyci n 250 mg tablet 03/20 completed Not Available Not Available Not Available Lidocaine Viscous 2 % mucosal solution 11/21 completed Not Available Not Available Not Available valacyclovi r 1 gram tablet Take 1 tablet every 12 hours by oral route for 7 days. 04/24 completed Not Available Not Available Not Available senna 8.6 mg tablet 04/24 completed Not Available Not Available Not Available fluconazole 200 mg tablet Take 1 tablet every other day x 3 doses 03/20 completed Not Available Not Available Not Available prednisone 20 mg tablet 07/14 completed Not Available Not Available Not Available benzoyl peroxide 5 % topical gel 07/14 completed Not Available Not Available Not Available triamcinolo ne acetonide 0.5 % topical ointment APPLY A THIN LAYER TO THE AFFECTED AREA(S) BY TOPICAL ROUTE 2 TIMES PER DAY x 7 days PRN 04/11 completed Not Available Not Available Not Available sulfamethox azole 800 mg-trimetho prim 160 mg tablet Take 1 tablet every 12 hours by oral route with meals for 5 days. 10/16 completed Not Available Not Available Not Available ondansetron 8 mg disintegrat ing tablet Place 1 tablet every 8 hours by transling ual route. 04/01 completed Not Available Not Available Not Available nystatin-tr iamcinolone 100,000 unit/gram-0 .1 % topical ointment APPLY TOPICALLY TO THE AFFECTED AREA TWICE DAILY FOR 7 DAYS 04/11 completed Not Available Not Available Not Available amoxicillin 875 mg tablet 04/01 completed Not Available Not Available Not Available cephalexin 500 mg capsule 06/19 completed Not Available Not Available Not Available triamcinolo ne acetonide 0.1 % topical ointment APPLY A THIN LAYER TO THE AFFECTED AREA(S) BY TOPICAL ROUTE 2 TIMES PER DAY 04/11 completed Not Available Not Available Not Available nystatin 100,000 unit/gram topical cream APPLY TO THE AFFECTED AREA(S) BY TOPICAL ROUTE 2 TIMES PER DAY 04/11 completed Not Available Not Available Not Available sertraline 25 mg tablet Take 1 tablet every day by oral route as directed. active Not Available Not Available No t Available ibuprofen 600 mg tablet 11/21 completed Not Available Not Available Not Available polyethylen e glycol 3350 17 gram/dose oral powder 04/24 completed Not Available Not Available Not Available albuterol sulfate HFA 90 mcg/actuati on aerosol inhaler 07/14 completed Not Available Not Available Not Available ondansetron 4 mg disintegrat ing tablet active Not Available Not Available N ot Available clotrimazol e 1 % topical cream 10/16 completed Not Available Not Available Not Available doxycycline hyclate 100 mg tablet Take 1 tablet twice a day by oral route with meals for 7 days. 12/25 completed Not Available Not Available Not Available loratadine 10 mg tablet 07/14 completed Not Available Not Available Not Available spironolact one 50 mg tablet Take 1 tablet every day by oral route for 30 days. 06/19 completed Not Available Not Available Not Available metoclopram bari 10 mg tablet 04/01 completed Not Available Not Available Not Available amoxicillin 875 mg-potassiu m clavulanate 125 mg tablet 10/16 completed Not Available Not Available Not Available neomycin-po lymyxin-hyd rocort 3.5 mg-10,000 unit/mL-1 % ear drops,susp 02/18 completed Not Available Not Available Not Available azithromyci n 500 mg tablet Take 2 tablets (1 gram) by mouth for one dose 04/11 completed Not Available Not Available Not Available nitrofurant oin monohydrate /macrocryst als 100 mg capsule Take 1 capsule every 12 hours by oral route for 5 days. 06/24 completed Not Available Not Available Not Available lactulose 10 gram/15 mL oral solution 11/21 completed Not Available Not Available Not Available drospirenon e 3 mg-ethinyl estradiol 0.02 mg tablet Take 1 tablet by oral route every day 09/06 completed Not Available Not Available Not Available Nexplanon 68 mg subdermal implant Inject 1 implant every day by subcutane ous route. 12/25 completed Not Available Not Available Not Available + DHA 28 mg iron-800 mcg-200 mg oral pack Take 1 pack every day by oral route with meals for 30 days. 2022 active Not Available Not Available Not Avai lable Se-Kwasi-19 29 mg iron-1 mg tablet 10/16 completed Not Available Not Available Not Available Vitals Date Recorded Body height Body mass index (BMI) Body weight Systolic blood pressure Diastolic blood pressure Provider Name and Address Organization Details Last Updated DateTime 06/24/2024 162.56 cm 20.3 kg/m2 28557.89 966 g 107 mm[Hg] 73 mm[Hg] Corine Novak [facility] 12:28:52 Social History Question Answer Notes LastModified by Organizat ion Details LastModified Time Tobacco Smoking Status Never Smoker Sharon vargas [facility] 05/01/2023 15:09:00 What Is Your Level Of Alcohol Consumption? None Information not available 03/15/2021 If You Are , What Was Your Level Of Alcohol Consumption Prior To ? Occasional [email or web address] Information not available 02/19/2024 Are You Blind Or Do You Have Difficulty Seeing? No Information not available 03/15/2021 What Is Your Level Of Caffeine Consumption? None Information not available 03/15/2021 In The 14 Days Before Symptom Onset, Have You Had Close Contact With A Laboratory-confir med COVID-19 While That Case Was Ill? No [email or web address] Information not available 07/14/2021 In The 14 Days Before Symptom Onset, Have You Had Close Contact With A Person Who Is Under Investigation For COVID-19 While That Person Was Ill? No [email or web address] Information not available 07/14/2021 Have You Been To An Area Known To Be High Risk For COVID-19? No [email or web address] Information not available 07/14/2021 Are You Deaf Or Do You Have Serious Difficulty Hearing? No Information not available 03/15/2021 What Type Of Diet Are You Following? REGULAR Information not available 03/15/2021 Do You Or Have You Ever Used E-cigarettes Or Vape? Current User Of Electronic Cigarettes [email or web address] Information not available 02/19/2024 Do You Use Your Seat Belt Or Car Seat Routinely? Yes Information not available 03/15/2021 Are You Sexually Active? Yes [email or web address] Information not available 05/01/2023 Do You Have Smoke And Carbon Monoxide Detectors In Your Home? Yes Information not available 03/15/2021 Do You Feel Stressed (tense, Restless, Nervous, Or Anxious, Or Unable To Sleep At Night)? [id number] Information not available 03/15/2021 Do You Use Any Illicit Or Recreational Drugs? Yes Marijuana [email or web address] Information not available 02/19/2024 Do You Use Sunscreen Routinely? Yes Information not available 03/15/2021 Has Tobacco Cessation Counseling Been Provided? No [email or web address] Information not available 05/01/2023 Do You Or Have You Ever Used Any Other Forms Of Tobacco Or Nicotine? Yes [email or web address] Information not available 02/19/2024 Sex: Unknown Functional Status Question Answer Note LastModified by Organizat ion Details LastModified Time Do you have difficulty walking or climbing stairs? No [email or web address] Information not available 05/01/2023 Are you able to walk? [email or web address] Information not available 03/15/2021 Are you able to care for yourself? Yes [email or web address] Information not available 05/01/2023 Do you have difficulty dressing or bathing? No [email or web address] Information not available 05/01/2023 What is your exercise level? None Information not available 03/15/2021 Mental Status None recorded. Family History Relationship Description Onset Age of this Age Resolved Age Notes LastModified by Organization Details LastModified Time Mother Cyst of ovary Not available 2020 11:15:47 Medical History Condition Response Allergies (Food, seasonal, environmental ) N Other N Drug/Latex Allergies/Reactions Y Blood Transfusion N Breast Cancer N Dermatologic Disorders N Lung Disease N Defects or Inherited Disease N Breast Problem N Gestational Diabetes N Hematologic disorders N Anesthesia Complications N History of STI Y Deep Vein Thrombosis N Polycystic ovary syndrome N Anxiety Disorder Y Autoimmune disease N Arthritis N Polyps N Infertility N Acid Reflux (GERD) N History of abnormal pap N Cancer N Varicosities N Stroke N Neurologic/Epilepsy N Endometriosis N High Cholesterol N Fibromyalgia N Headaches N Kidney Disease N Heart Problems N Thyroid Problems N Kidney or Bladder Problems N GI Problems N Eating Disorder N Anemia N Art (IVF or FET) N Psychiatric Illness N Ovarian Cancer N Diabetes N Pulmonary (TB, Asthma) N Hepatitis/Liver Disease N No Past Medical History N Eczema N Urinary Tract Infection N Abuse/Domestic Violence N Asthma N Trauma/Violence N Depression/ depression Y Heart Disease N Pre-Eclampsia N Hypertension N Osteoporosis N Thrombophilias N Gynecological History Statement/Question Response Flow Moderate Date of Last Mammogram Date of LMP 12/22/2023 STIs/STDs Y HPV Vaccine N Duration of Flow (days) 4 14 Current Control Method Are cycles usually normal Y Date of Last Colonoscopy Frequency of Cycle (Q days) 30 Sexually Active? Y Menses Monthly Y Date of DEXA bone scan Age of first menstrual cycle 18 Date of Last Pap Smear 02/19/2024 Sexual Problems? N Desired Control Method LMP Definite Obstetrics History GPAL:G 1 P 0 0 0 0 Type Value Living 0 Total 1 Past Encounters Encounter ID Performer Location Encounter Start Date Encounter Closed Date Diagnosis/Indication Diagnosis SNOMED-CT Code Diagnosis ICD10 Code [id number] [facility] [address],[place] [address] 05/26/2024 14:35:17 05/26/2024 17:52:03 screening for malformation 801208999 Z36.3 Z3A.20 [id number] Sakina Cantrell [facility] [address],[place] [address] 05/27/2024 17:14:49 05/28/2024 10:29:26 Gestation period, 20 weeks 54293462 Z3A.20 Anxiety 01063693 F41.9 [id number] [facility] [address],[place] [address] 06/24/2024 11:40:27 06/24/2024 12:37:10 Low lying placenta 804202482 O44.42 Z3A.24 [id number] Sakina Cantrell [facility] [address],[place] [address] 06/24/2024 11:41:44 06/24/2024 12:43:47 Gestation period, 24 weeks 962100274 Z3A.24 Health Concerns Section Related Observation LastModified by Organization Detai ls LastModified Time None Recorded Concern Status LastModified by Organization Details LastModified Time None Recorded Payers Encounter Date Sequence Insurance Name Policy Number Policy Shine Covered Member ID Shine Member ID Guarantor Name 06/24/2024 2 [facility] ON OR AFTER 02/02/21 (MEDICAID REPLACEMENT - HMO) Mae Frances [id number] Mae Frances OBGyn Episode Ob Episode Information Episode Created Date Number of Fetuses Patient Bloodtype Patient rh Status Prepregnancy Weight lbs Domestic Partner Domestic Partner Phone Father Name Harness And Bag Inspector Status 04/01/20 24 1 A Positive 104 Stan Willyar d OPEN Fetus Data First Name Last Name Admitted to NICU Weight (g) Sex Living Outcome Pediatric Complications Fetus ID Race Codes Race Delivery Type [id number] Problems Problem Notes 32wk growth us Problem Name Start Date End Date Resolution Snomed Code Not e History of chlamydial infection 826392770 chl neg Alpha thalassemia 04/16/2024 96723300 s ilent carrier; low risk Low lying placenta 217277711 r esolved Kb Calculation KB Calculation Method Initial Kb Date Initial Exam Date Initial Exam Provider Initial Ultrasound Date Last Menstrual Period Date Ultra Sound Weeks Gestation Conception by IVF Embryo Age at Transfer Date of Transfer 10/12/1902/19/20 26 Sakina Cantrell 02/19/2024 12/22/2023 6 Eighteen To Twenty Week Kb Update Ultra Sound Date Fundal Height At Umbil Quickening Date Ultra Sound Latest Weeks Gestation Final Kb Confirmed By Final Kb Confirmed Date Final Kb Date Ultra Sound Latest Days Gestation 0 0 Pre- Flowsheet Flowsheet Date 04/01/2024 Frias Score Blood Edema Fundus Height Fundus Units Glucose Ketones Leukocytes Nitrite Labor Signs Protein Cervic Dilation Cervic Effacement Cervic Station neg none none trace Type Weight in lbs Pre/Post Dialysis Refused Weight 104.391985350163 BP Diastolic BP Location Tested BP Systolic BP Type 61 107 Fetus Heart Rate Present Fetus Movement A Yes Comments Patient states that felt diz zy and like was going to pass out, encourage hydration, eat small meals with snacks, ok for note for dentist, start routine care, precautions and education, f/u 4 weeks Flowsheet Date 04/29/2024 Frias Score Blood Edema Fundus Height Fundus Units Glucose Ketones Leukocytes Nitrite Labor Signs Protein Cervic Dilation Cervic Effacement Cervic Station Type Weight in lbs Pre/Post Dialysis Refused 105.758145644653 BP Diastolic BP Location Tested BP Systolic BP Type 67 105 Fetus Heart Rate Present Fetus Movement A Yes Comments Patient states that is havin g some discharge and nausea and vomiting. tearful, describes anxiety and anger, no depression, worried about delivery anesthesia, baby showers, everything reluctant to take meds, but declines counseling at this time, encouraged medication will start zoloft 25 mg f/u anatomy in 4 weeks/med check Flowsheet Date 05/26/2024 Frias Score Blood Edema Fundus Height Fundus Units Glucose Ketones Leukocytes Nitrite Labor Signs Protein Cervic Dilation Cervic Effacement Cervic Station Type Weight in lbs Pre/Post Dialysis Refused BP Diastolic BP Location Tested BP Systolic BP Type Fetus Heart Rate Present Fetus Movement Comments Flowsheet Date 05/27/2024 Frias Score Blood Edema Fundus Height Fundus Units Glucose Ketones Leukocytes Nitrite Labor Signs Protein Cervic Dilation Cervic Effacement Cervic Station none Type Weight in lbs Pre/Post Dialysis Refused 109.780516390576 BP Diastolic BP Location Tested BP Systolic BP Type 69 107 Fetus Heart Rate Present Fetus Movement A Yes Comments Patient states that was stefania onesimo for UTI yesterday, nausea and vomiting. feeling better on the zoloft, some nausea in the beginning, anxiety is lessening, +FM, reviewed anatomy llp, plan pelvic rest, education and precautions f/u 4 weeks Flowsheet Date 06/24/2024 Frias Score Blood Edema Fundus Height Fundus Units Glucose Ketones Leukocytes Nitrite Labor Signs Protein Cervic Dilation Cervic Effacement Cervic Station Type Weight in lbs Pre/Post Dialysis Refused BP Diastolic BP Location Tested BP Systolic BP Type Fetus Heart Rate Present Fetus Movement Comments Flowsheet Date 06/24/2024 Frias Score Blood Edema Fundus Height Fundus Units Glucose Ketones Leukocytes Nitrite Labor Signs Protein Cervic Dilation Cervic Effacement Cervic Station none Type Weight in lbs Pre/Post Dialysis Refused 118.490421536462 BP Diastolic BP Location Tested BP Systolic BP Type 73 107 Fetus Heart Rate Present Fetus Movement A Yes Comments Patient is having some nause a and vomiting. LLP resolved, doing well efw 57% mood good on sertraline f/u 4 weeks with gct Flowsheet Date 07/31/2024 Frias Score Blood Edema Fundus Height Fundus Units Glucose Ketones Leukocytes Nitrite Labor Signs Protein Cervic Dilation Cervic Effacement Cervic Station 24 cm Type Weight in lbs Pre/Post Dialysis Refused 122.235099824554 BP Diastolic BP Location Tested BP Systolic BP Type 58 111 Fetus Heart Rate Present Fetus Movement A Yes Comments Patient states that is havin g discharge, nausea and vomiting. growth at next visit +FM unsure about tdap, did rec. education and precautions GCT today f/u 2 weeks Menstrual History Last Menstrual Date Menses Monthly On Bcp Conception Prior Menses Frequency Hcg Plus Date Menarche Onset Age 0512/22/2023 true false Delivery Information Delivery Date Delivery Type Labor Anesthesia Weeks Gestation Incision Type Labor Labor Length Hrs Delivered By Post Complications Tubal Sterilization Discharge Date Comments Discharge Information Feeding Method Contraceptive Method Maternal HG B and HCT Levels
--- OUTSIDE RECORDS SUMMARY | 2024-08-02 02:37 | XMS_ITS | Encounter Summary ---
Author Organization [facility] Address [address] [facility] [place] [address] Care Team Providers Care Technical Designer Name Role Phone Geo Goyal MD Primary Care Provider Encounter Details Date Type Department Care Team (Late st Contact Info) Description 06/19/2010 10:30 AM W[facility] UP WORKER - 06/19/2010 11:59 PM [facility] Hospital Encounter [facility] - Neurology [facility] [place] [address] Social History Tobacco Use Types Packs/Day Years Used Date Smoking Tobacco: Never Assessed Sex and Gender Information Value Date Recorded Sex Assigned at Not on file Gender Identity Not on file Sexual Orientation Not on file documented as of this encounter Medications at Time of Discharge Medication Sig Dispensed Refills Start Date End Date atomoxetine (STRATTERA) 10 MG capsule Take 10 mg by mouth every morning. 07/10/2010 atomoxetine (STRATTERA) 25 MG capsule Take 25 mg by mouth at bedtime. 07/10/[address] (DEPAKOTE) 125 MG tabletIndications:Migraine , unspecified, without mention of intractable migraine without mention of status migrainosus Take 1 Tab by mouth 2 times daily. 60 6 01/30/2010 07/10/2010 guanfacine (TENEX) 1 MG tablet Take 1 mg by mouth 3 times daily. 11/18/2011 polyethylene glycol 3350 (MIRALAX) powder Take 8.5 g by mouth 2 times daily. 11/18/2011 sertraline (ZOLOFT) 50 MG tablet Take 50 mg by mouth daily. Take 1 1/2 tabs Daily 02/01/2012 trazodone (DESYREL) 100 MG tablet Take 100 mg by mouth at bedtime. 12/21/2011 documented as of this encounter Progress Notes * Judith Mcdonough LPN - 06/19/2010 11:07 AM CST Patient did not keep scheduled appointment today. UP WORKER documented in this encounter Plan of Treatment Not on file documented as of this encounter Visit Diagnoses Not on filedocumented in this encounter Care Teams Technical Designer Relationship Specialty Start Date End Date Geo Goyal MD [address] [place] [address] PCP - General 08/24/09 01/15/22 documented as of this encounter
--- OUTSIDE RECORDS SUMMARY | 2024-08-02 02:37 | XMS_ITS | Encounter Summary ---
Author Organization [facility] Address [address] [place] [address] Care Team Providers Care Executive Candidate Developer Name Role Phone Geo Goyal MD Primary Care Provider Encounter Details Date Type Department Care Team (Latest Contact Info) Description 06/11/2011 2:48 PM CYTOLOGY TECHNOLOGIST - 06/11/2011 11:59 PM [facility] Hospital Encounter [facility] [address] [place] [id number] Shira Young, AGUSTIN/LD [address] [place] [id number] Medical Inpatient Discharge Disposition: Home or Self [...] Refills Start Date End Date atomoxetine (STRATTERA) 40 MG capsule Take 40 mg by mouth every morning. 11/18/2011 cloNIDine (CATAPRES) 0.1 MG tablet Take 0.1 mg by mouth 4 times daily. 11/18/[address] (DEPAKOTE) 125 MG tabletIndications:Migraine , unspecified, without mention of intractable migraine without mention of status migrainosus Take 1 Tab by mouth 2 times daily. 60 Tab 8 07/10/2010 11/18/2011 guanfacine (TENEX) 1 MG tablet Take 1 mg by mouth 3 times daily. 11/18/2011 polyethylene glycol 3350 (MIRALAX) powder Take 8.5 g by mouth 2 times daily. 11/18/2011 sertraline (ZOLOFT) 50 MG tablet Take 50 mg by mouth daily. Take 1 1/2 tabs Daily 02/01/2012 trazodone (DESYREL) 100 MG tablet Take 100 mg by mouth at bedtime. 12/21/2011 documented as of this encounter Plan of Treatment Not on file documented as of this encounter Visit Diagnoses Not on filedocumented in this encounter Care Teams Executive Candidate Developer Relationship Specialty Start Date End Date Geo Goyal MD [address] [place] [address] PCP - General 08/24/09 01/15/22 documented as of this encounter
--- OUTSIDE RECORDS SUMMARY | 2024-08-02 02:37 | XMS_ITS | Encounter Summary ---
Author Organization [facility] Address [address] [place] [address] Care Team Providers Care Senior Policy Advisor Name Role Phone Geo Goyal MD Primary Care Provider [phone] Encounter Details Date Type Department Care Team (Late st Contact Info) Description 06/20/2009 Orders Only [facility] - Laboratory [address] [place] [id number] Provider, MD Nya Social History Tobacco Use Types Packs/Day Years Used Date Smoking Tobacco: Never Assessed Sex and Gender Information Value Date Recorded Sex Assigned at Not on file Gender Identity Not on file Sexual Orientation Not on file documented as of this encounter Plan of Treatment Not on file documented as of this encounter Procedures Procedure Name Priority Date/Time Associated Diagnosis Comments GROSS + MICRO EXAM [place] 06/20/2009 11 :10 AM CHROME 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 Laborer [employer]crete ? WANG SCHROEDER A PATHOLOGIST ?Cory Stewart M.D. ELECTRONICALLY DARRYL Cory Stewart MISCELLANEOUS SAMPLES / Unknown 06/20/2009 11:10 AM CHROME CLEANER 06/20/2009 12:23 PM CHROME CLEANER Historical Provider LAB - PATHOLOGY/C YTOLOGY ORDERABLES [facility] PATH REPORT documented in this encounter Visit Diagnoses Not on filedocumented in this encounter Care Teams Senior Policy Advisor Relationship Specialty Start Date End Date Geo Goyal MD [address] [place] [id number] PCP - General 08/24/09 01/15/22 documented as of this encounter
--- OUTSIDE RECORDS SUMMARY | 2024-08-02 02:37 | XMS_ITS | Encounter Summary ---
Author Organization [facility] Address [address] [place] [address] Care Team Providers Care Environmental Services Associate Name Role Phone Geo Goyal MD Primary Care Provider [phone] Reason for Visit * Reason Comments Pain Abdominal no BM x 2 weeks; h/o chronic constipation. mom called PMD on Saturday; enema given x 1 yest with small smear only and repeated today with no results. Alert, walking; incontinent of urine here when she tried to have a BM. abd very large/firm with no bowel sounds. Pt asking to ear. Aware to stay NPO. h/o disimpaction here 2 years ago. Encounter Details Date Type Department Care Team (Latest Contact Info) Description 11/18/2011 4:00 PM CDT - 11/21/2011 6:48 PM CDT Hospital Encounter CG [address] [place] [address] Phoebe Allen MD [address] [place] [address] [place] [address] Thony Montez MD [address] [place] [address] [id number] Gastroenterology Discharge Disposition: Home or Self Care Social [...] Sign Reading Time Taken Comments Blood Pressure 100/58 11/21/2011 4:05 PM CDT Pulse 100 11/21/2011 4:05 PM CDT Temperature 37.1 ??C (98.8 ??F) 11/21/2011 4:05 PM CD T Respiratory Rate 20 11/21/2011 4:05 PM CDT Oxygen Saturation - - Inhaled Oxygen Concentration - - Weight 26.5 kg (58 lb 6.8 oz) 11/18/2011 1:07 PM CDT Height 134 cm (4' 4.76 ) 11/19/2011 12: 14 AM CDT Body Mass Index 14.76 11/18/2011 1:07 PM CDT Body Mass Index Percentile 18.44% 11/18 12:14 AM CDT Growth Chart: [facility] (Girls, 2- 20 Years) documented in this encounter Discharge Summaries * Thony Montez MD - 11/21/2011 2:50 PM CDT Pediatric Discharge Summary Pt. Name: Mae Frances : 2000 Attending Physician : Thony Montez MD Admission Date: 11/18/2011 Discharge Date: 11/21/2011 Hospital Course (by problem): Active Hospital Problems Diagnoses Date Noted ??? Constipation 06/07/2011 Chronic constipation with acute episode of no BM x 2 weeks. No relief of symptoms with milk of magnesia or fleet enemas at home. Denies any pain/discomfort. Has tolerated PO intake at home. Abdominalfilms show very large amount of air and feces throughout the length of the colon with no evidence of bowel obstruction or perforation. Some past workup with prior hospitalization in 2008 at [facility]. Recently seen in June 2011 for constipation and suspected FTT. During admission, serum IgA is normal and TTG IgA antibody is negative at 7. Had NG tube golytely during admission with resultant multiple stools including softball sized then turning liquid brown. Had emesis 11/20 thus golytely DCed. Given 150 cc magnesium citrate through NG tube afterward and monitored for results. Plan: -DC home with mom -Repeat mag citrated outpatient in 2 days -Continue miralax daily, dietary mods, and good toilet habits as discussed with mother -FU with GI as directed ??? ADHD (attention deficit hyperactivity disorder) 06/07/2011 H/o ADHD. On Focalin. ??? Bipolar 1 disorder 06/07/2011 H/o bipolar, ADHD, ODD followed by outside psychiatrist. Plan: Continue home medications (Seroquel TID, Zoloft BID, Trazadone QHS). Resolved Hospital Problems Diagnoses Date Noted Date Resolved Discharge Diagnosis(es): Constipation ADHD (attention deficit hyperactivity disorder) Bipolar 1 disorder Condition on Discharge: Improved, Stable Consultations: None Diagnostic studies: See hospital course Procedures: See hospital course Relevant Labs: My review of lab results is significant for see course. Discharge Physical Exam (relevant findings include): General: healthy, alert and no distress Lungs: breath sounds symmetrical without rales or wheezes Heart: regular rate and rhythm, normal S1 and S2, no murmurs Abdomen: soft, non-tender, slightly distended but soft and no hepatosplenomegaly or masses Extremities: No clubbing, cyanosis or edema PENDING RESULTS: none Discharge Medications: Discharge Medication List as of 11/21/2011 5:05 PM START taking these medications Details magnesium citrate solution 150 mL = 5.66 mL/kg, Oral, ONCE Starting 11/23/2011, Disp-150 mL, R-0, Print, Take 150 mL by mouth once for 1 dose. CONTINUE these medications which have NOT CHANGED Details QUEtiapine (SEROQUEL) 100 MG tablet 100 mg, Oral, 3 TIMES DAILY, Until Discontinued, Historical Medication, Take 100 mg by mouth 3 times daily. dexmethylphenidate (FOCALIN) 10 MG tablet 10 mg, Oral, 3 TIMES DAILY, Until Discontinued, Historical Medication, Take 10 mg by mouth 3 times daily. Magnesium Hydroxide (MILK OF MAGNESIA PO) Oral, Until Discontinued, Historical Medication, Take by mouth. sertraline (ZOLOFT) 50 MG tablet 50 mg, Oral, DAILY, Historical Medication, Take 50 mg by mouth daily. Take 1 1/2 tabs Daily trazodone (DESYREL) 100 MG tablet 100 mg, Oral, AT BEDTIME, Historical Medication, Take 100 mg by mouth at bedtime. Discharge Procedure Orders CALL PHYSICIAN For temperature greater than 100.4 F, for excessive redness, excessive bleeding or unusual drainageat surgical site and/or IV site, if experiencing increasing or unrelieved pain, or if experiencing difficulty breathing. SPECIAL DIET INSTRUCTIONS TO INCLUDE... High fiber diet (apples/pears/raisins/oats) with at least 8 oz fruit juice (prune preferable) daily. NO ACTIVITY RESTRICTIONS AT DISCHARGE PATIENT TO CALL PHYSICIAN FOR APPOINTMENT With GI as instructed or as needed. DISCHARGE MEDICATION INSTRUCTIONS Continue meds as prescribed. Take magnesium citrate in 2 days to help with constipation. Faustino Menendez MD Attending Physician Supervisory Note I personally interviewed and examined the patient and agree with the doctor above. Thony Montez MD CC: Geo Goyal MD [address] [place] [address] [address] [place] [address] documented in this encounter Discharge Instructions * Discharge Instructions* Sofiya Kramer - 11/21/2011 5:05 PM CDT Discharge Instructions for: Mae Frances Discharge Procedure Orders CALL PHYSICIAN For temperature greater than 100.4 F, for excessive redness, excessive bleeding or unusual drainageat surgical site and/or IV site, if experiencing increasing or unrelieved pain, or if experiencing difficulty breathing. SPECIAL DIET INSTRUCTIONS TO INCLUDE... High fiber diet (apples/pears/raisins/oats) with at least 8 oz fruit juice (prune preferable) daily. NO ACTIVITY RESTRICTIONS AT DISCHARGE PATIENT TO CALL PHYSICIAN FOR APPOINTMENT With GI as instructed or as needed. DISCHARGE MEDICATION INSTRUCTIONS Continue meds as prescribed. Take magnesium citrate in 2 days to help with constipation. The following belonging have been returned to you Clothing Clothing: Yes With Patient: Shirt Sent Home: Pants Secured: Footwear Jewelry Jewelry: None Electronics Electronic Items: Yes With Patient: Laptop Sent Home: Laptop Dentures Dentures/Retainers: None Vision Visual Aids: None Hearing Aids Hearing Aids: None Equipment/Assistive Devices Equipment with Patient: None Home Medications Home Medications: None Miscellaneous Belongings Miscellaneous Items: None If your child has any worsening of his or her condition, please call your primary care doctor (or their exchange if after hours) or return to the ED if your primary care doctor cannot be reached. 11/21/2011 * Discharge Instructions* Document, Scanned - 11/27/2011 6:13 AM CDT documented in this encounter Medications at Time of Discharge Medication Sig Dispensed Refills Start Date End Date dexmethylphenidate (FOCALIN) 10 MG tablet Take 10 mg by mouth 3 times daily. 03/24/2012 magnesium citrate solution Take 150 mL by mouth once for 1 dose. 150 mL 0 11/23/2011 11/23/2011 Magnesium Hydroxide (MILK OF MAGNESIA PO) Take by mouth. 02/01/2012 QUEtiapine (SEROQUEL) 100 MG tablet Take 100 mg by mouth 3 times daily. 02/01/2012 sertraline (ZOLOFT) 50 MG tablet Take 50 mg by mouth daily. Take 1 1/2 tabs Daily 02/01/2012 trazodone (DESYREL) 100 MG tablet Take 100 mg by mouth at bedtime. 12/21/2011 documented as of this encounter Progress Notes * Paty Valdovinos MSW - 11/21/2011 5:37 PM CDT Social service brief contact: Reason for Referral: SW received page from Nurse Arriaza regarding assistance with a gas card. Day Nurse informed Nurse Arriaza that day SW would provide family with a gas card upon discharge. If pt was discharged after 4:30, nurse was to contact solutions specialist SW. Source of Information: SW reviewed medical record and previous note for SULTANA. Plan: Pt to be discharged this evening around 6pm. SW did provide gas card. Pt to be discharged to mother when medically ready. JOSEMANUEL Castaneda CANE WEIGHER * Odalis Salinas RN - 11/21/2011 4:43 PM CDT Problem: Bowel Elimination Goal: LTG - Patient will complete bowel elimination Outcome: Ongoing Pt had multiple bms throughout shift. Pt put on toilet for 20min periods to help pt have bms. Pts abd decreased in tenderness, firmness and roundness toward end of shift. * Odalis Salinas RN - 11/21/2011 4:41 PM CDT Problem: Fall Risk Goal: Patient will remain free of falls Outcome: Ongoing Pt educated multiple times about not skating on IV poll. Pt refused to listen and continues to ride on IV poll. Hourly checks are Completed and pt was repeatedly reminded to use call light. Pt's room was also close to the RN station. Pt given distracting activities to prevent risk of fall. * Thony Montez MD - 11/21/2011 10:32 AM CDT Pediatric Attending Daily Progress Note 11/20/2011 12:17 PM Hospital Day: 3 I have interviewed the patient/family and examined this patient. I have reviewed and confirmed/revised the findings of the resident. My findings (lópez elements and supplemental information) are as follows: Clinical Course Pt passed several large bm's last night while continuing to receive Golytely. Vomited this am just before I came into room. No heme, but appears bilious. Exam: BP 96/60 Pulse 102 Temp 97.8 ??F Resp 24 Wt 26.5 kg (58 lb 6.8 oz) BMI 14.76 kg/m2 HENT: MMM; anicteric sclerae. Oral pharynx is clear. Neck: No palpable thyromegaly or cervical lymphadenopathy. Chest: Clear to auscultation bilaterally. Cor: Regular rate and rhythm. Abdomen: Soft and mildly distended. There are multiple scybalous masses palpable. There is no localized tenderness to deep palpation. Extremities: No edema, clubbing or cyanosis. Neuro: Nonfocal. Lab/Other Information No results found for this or any previous visit (from the past 24 hour(s)). Active Hospital Problems Diagnoses Date Noted ??? Constipation 06/07/2011 Chronic constipation with acute episode of no BM x 2 weeks. No relief of symptoms with milk of magnesia or fleet enemas at home. Denies any pain/discomfort. Has tolerated PO intake at home. Abdominalfilms show very large amount of air and feces throughout the length of the colon with no evidence of bowel obstruction or perforation. Somepast workup with prior hospitalization in 2008 at [facility]. Recently seen in June 2011 for constipation and suspected FTT. During admission, serum IgA is normal and TTG IgA antibody is negative at 7 Plan: NG tube placement Golytely at maintenance Clear liquid diet 1/2 MIVF Monitor I/O's ??? ADHD (attention deficit hyperactivity disorder) 06/07/2011 H/o ADHD. On Focalin. Plan: Will ask mom to bring home medications (not available on formulary) ??? Bipolar 1 disorder 06/07/2011 H/o bipolar, ADHD, ODD followed by outside psychiatrist. Plan: Continue home medications (Seroquel TID, Zoloft BID, Trazadone QHS). UPDATE: Will d/c Golytely in view of emesis, wait a few hours until emesis resolved and then give 150 cc of Mg citrate through NG tube. See resident's note of 11/20/2011 for further details. Discussed above with GI team. Thony Montez MD [phone] * Pita Mckeon, DO - 11/20/2011 1:19 PM CDT Pediatric Resident Daily Progress Note Mae Frances 11/20/2011 1:19 PM Hospital Day: 2 Clinical Course No acute events overnight. Small BM--pure liquid this am. Denies any pain or discomfort. Objective Vitals BP: 102/62 mmHg (11/20/11 1510), Temp: 98.6 ??F (11/20/11 1510), Pulse: 80 (11/20/11 1510), Resp: 18 (11/20/11 1510), Height: 134 cm (4' 4.76 ) (11/19/11 0014), Weight: 26.5 kg (58 lb 6.8 oz) (11/18/11 1307) Temp (24hrs), Av.6 ??F, Min:97 ??F, Max:98.6 ??F 11/18 1500 - 11/19 1459 In: 2748 [I.V.:1240] Out: - Exam: General: active, talkative, in no acute distress Nose: NG in place Oropharynx: mucous membranes are moist Cardiovascular: regular rate and rhythm, normal S1 and S2, no murmurs Chest: breath sounds symmetrical without rales or wheezes, good air movement and no retractions or tracheal tugging Abdomen: non-tender, non-distended, fecal masses palpable and normal bowel sounds Skin: no rashes Lab/Other Information none Active Hospital Problems Diagnoses Date Noted ??? Constipation 06/07/2011 Priority: High Chronic constipation with acute episode of no BM x 2 weeks. No relief of symptoms with milk of magnesia or fleet enemas at home. Denies any pain/discomfort. Has tolerated PO intake at home. Abdominalfilms show very large amount of air and feces throughout the length of the colon with no evidence of bowel obstruction or perforation. Somepast workup with prior hospitalization in 2008 at [facility]. Recently seen in June 2011 for constipation and suspected FTT. During admission, serum IgA is normal and TTG IgA antibody is negative at 7 Plan: NG tube placement Golytely at maintenance Clear liquid diet 1/2 MIVF Monitor I/O's ??? ADHD (attention deficit hyperactivity disorder) 06/07/2011 H/o ADHD. On Focalin. Plan: Will ask mom to bring home medications (not available on formulary) ??? Bipolar 1 disorder 06/07/2011 H/o bipolar, ADHD, ODD followed by outside psychiatrist. Plan: Continue home medications (Seroquel TID, Zoloft BID, Trazadone QHS). Pita Mckeon DO * Thony Montez MD - 11/20/2011 12:17 PM CDT Pediatric Attending Daily Progress Note 11/20/2011 12:17 PM Hospital Day: 2 I have interviewed the patient/family and examined this patient. I have reviewed and confirmed/revised the findings of the resident. My findings (lópez elements and supplemental information) are as follows: Clinical Course Pt has this am started passing watery stools while continuing to receive Golytely. No emesis and tolerating NG infusion well. Exam: BP 98/60 Pulse 80 Temp 98 ??F Resp 18 Wt 26.5 kg (58 lb 6.8 oz) BMI 14.76 kg/m2 HENT: MMM; anicteric sclerae. Oral pharynx is clear. Neck: No palpable thyromegaly or cervical lymphadenopathy. Chest: Clear to auscultation bilaterally. Cor: Regular rate and rhythm. Abdomen: Soft and mildly distended. There are multiple scybalous masses palpable. There is no localized tenderness to deep palpation. Extremities: No edema, clubbing or cyanosis. Neuro: Nonfocal. Lab/Other Information Recent Results (from the past 48 hour(s)) TISSUE TRANSGLUTAMINASE AB IGA Collection Time 11/19/11 10:50 AM Component Value Range Transglutaminase IgA 7 0 - 19 (units) Ref Lab Comment IGA BLOOD Collection Time 11/19/11 10:50 AM Component Value Range IGA 136 45 - 236 (mg/dl) Active Hospital Problems Diagnoses Date Noted ??? Constipation 06/07/2011 Chronic constipation with acute episode of no BM x 2 weeks. No relief of symptoms with milk of magnesia or fleet enemas at home. Denies any pain/discomfort. Has tolerated PO intake at home. Abdominalfilms show very large amount of air and feces throughout the length of the colon with no evidence of bowel obstruction or perforation. Somepast workup with prior hospitalization in 2008 at [facility]. Recently seen in June 2011 for constipation and suspected FTT. Plan: NG tube placement Golytely at maintenance NPO MIVF Serum IgA is normal and TTG IgA antibody is negative at 7 Monitor I/O's ??? ADHD (attention deficit hyperactivity disorder) 06/07/2011 H/o ADHD. On Focalin. Plan: Will ask mom to bring home medications (not available on formulary) ??? Bipolar 1 disorder 06/07/2011 H/o bipolar, ADHD, ODD followed by outside psychiatrist. Plan: Continue home medications (Seroquel TID, Zoloft BID, Trazadone QHS). See resident's note of 11/20/2011 for further details. Thony Montez MD [phone] * Madonna Lu RN - 11/20/2011 10:07 AM CDT Problem: Safety/Fall Precautions Goal: Patient will remain free of physical injury Outcome: Ongoing Anti Skid socks when out of bed, call light in reach Problem: Bowel Elimination Goal: LTG - Patient will have regular and routine bowel evacuation Outcome: Ongoing Pt currently with NG [employer] running * Pita Mckeon DO - 11/19/2011 7:08 PM CDT Pediatric Resident Daily Progress Note Mae Frances 11/19/2011 7:08 PM Hospital Day: 1 Clinical Course No acute events overnight. Golytely started. Has no had BM to date. Objective Vitals BP: 90/52 mmHg (11/19/11 1520), Temp: 96.8 ??F (11/19/11 1520), Pulse: 88 (11/19/11 1520), Resp: 22 (11/19/11 1520), Height: 134 cm (4' 4.76 ) (11/19/11 0014), Weight: 26.5 kg (58 lb 6.8 oz) (11/18/11 1307) Temp (24hrs), Av.6 ??F, Min:96.8 ??F, Max:98.8 ??F 11/17 1500 - 11/18 1459 In: 2242.3 [I.V.:1068.3] Out: 375 [Urine:375] Exam: General: talkative, in no acute distress Oropharynx: mucous membranes are moist Cardiovascular: regular rate and rhythm, normal S1 and S2, no murmurs Chest: breath sounds symmetrical without rales or wheezes, good air movement and no retractions or tracheal tugging Abdomen: non-tender, non-distended, no hepatosplenomegaly or masses and firm with palpable stool Skin: no rashes Lab/Other Information none Active Hospital Problems Diagnoses Date Noted ??? Constipation 06/07/2011 Priority: High Chronic constipation with acute episode of no BM x 2 weeks. No relief of symptoms with milk of magnesia or fleet enemas at home. Denies any pain/discomfort. Has tolerated PO intake at home. Abdominalfilms show very large amount of air and feces throughout the length of the colon with no evidence of bowel obstruction or perforation. Somepast workup with prior hospitalization in 2008 at [facility]. Recently seen in June 2011 for constipation and suspected FTT. Plan: NG tube placement Golytely at maintenance NPO MIVF Will check IgA and TTG Monitor I/O's ??? ADHD (attention deficit hyperactivity disorder) 06/07/2011 H/o ADHD. On Focalin. Plan: Will ask mom to bring home medications (not available on formulary) ??? Bipolar 1 disorder 06/07/2011 H/o bipolar, ADHD, ODD followed by outside psychiatrist. Plan: Continue home medications (Seroquel TID, Zoloft BID, Trazadone QHS). Pita Mckeon DO * Madonna Lu RN - 11/19/2011 11:01 AM CDT Pt alert and oriented and feeling better to play. * Madonna Lu RN - 11/19/2011 10:59 AM CDT Blood drawn and labs sent from [facility]. Pt felt dizzy and numb and became pale. Pt layed down and cool rag placed to forehead and feet elevated. * Chaparrita Ambrose DO - 11/18/2011 9:04 PM CDT PGY-3 Brief Admission Note 11 y/o female with hx of chronic constipation and FTT presents for no bowel movement in 2 weeks. Previously seen by GI and given lab orders for FTT work up, which she never obtained. Now back on growth curve. Hx of ADHD and bipolar treated with multiple medications including zoloft, focalin, and seroquel. In ED, had x-ray which showed large amount of stool. Awake, alert, and in no distress Abd mild distended with palpable stool in left lower quadrant. Will admit to GI for NG go-lytely. NPO at this time and MIVF. Discussed with Dr. Mckeon, see her note for further details. Chaparrita Ambrose DO 11/18/2011 9:12 PM documented in this encounter H&P Notes * Thony Montez MD - 11/19/2011 1:42 PM CDT Pediatric Attending Admission Note Admit Date: 11/18/2011 4:00 PM I have interviewed the patient/family and examined this patient. I have reviewed and confirmed/revised the findings of the resident. My findings (lópez elements and supplemental information) are as follows: Chief Complaint Constipation with fecal impaction. Records from chart; mother not in hospital during rounds today. History of Present Illness Mae Frances is a 11 y.o. female chronic constipation, a history of failure to thrive, now improved, attention deficit hyperactivity disorder, bipolar illness, ODD. She's had no bowel movement for two weeks by history prior to admission, as evidenced on flat plate and was admitted for disimpaction. There's a history of what appears to be non-adherence in terms of administration of prescribed laxatives and lack of follow-up for constipation. Past Medical History Diagnosis Date ??? Headache started approximately 2 years ago ??? S/P colonoscopy age 6y/o ??? ADHD (attention deficit hyperactivity disorder) ??? Sensory integration disorder ??? Bipolar affective ??? ODD (oppositional defiant disorder) ??? Aggression ??? Learning disability ??? Constipation, chronic No past surgical history on file. Reportedly has had a rectal bx (full thickness) that showed the presence of ganglion cells. Allergies Allergen Reactions ??? Tegretol (Carbamazepine) Rash ??? Stimulant Laxative (Bisacodyl) Rash MEDICATIONS FOR CURRENT ENCOUNTER: ?? SCHEDULED MEDICATIONS: ?? polyethylene glycol (GoLYTELY;NuLYTELY) 240 GM solution 4,000 mL, Oral, Once ?? QUEtiapine (SEROquel) tablet 100 mg, Oral, TID ?? sertraline (ZOLOFT) tablet 100 mg, Oral, bid ?? traZODone (DESYREL) tablet 100 mg, Oral, NIGHTLY ?? CONTINUOUS MEDICATIONS: ?? dextrose 5% and 0.45% NaCl with KCl 20 mEq infusion, Intravenous, Continuous ?? polyethylene glycol (GoLYTELY;NuLYTELY) 240 GM solution 4,000 mL, Per NG tube, Continuous ?? PRN MEDICATIONS: ?? acetaminophen (TYLENOL) solution 240-400 mg, Oral, q6h PRN Family History Problem Relation Age of Onset ??? Migraine Mother History Social History ??? Marital Status: Single [...] History Narrative ??? No narrative on file 14 point comprehensive ROS is noncontributory except as noted above. Specifically, there is no history of obstructive symptoms with high fever, vomiting and abdominal distention as might be seen withHirschprung disease and by history she has had a full thickness rectal biopsy that was negative (i.e., ganglion cells were present). Exam BP 92/58 Pulse 84 Temp 97.6 ??F Resp 20 Wt 26.5 kg (58 lb 6.8 oz) BMI 14.76 kg/m2 Skin: No cutaneous stigmata to suggest a chronic disease or specific micronutrient deficiency. HENT: MMM; anicteric sclerae. Oral pharynx is clear. NG tube in nares. Neck: No palpable thyromegaly or cervical lymphadenopathy. Chest: Clear to auscultation bilaterally. Cor: Regular rate and rhythm. Abdomen: Soft and mild distend with scybala present throughout abdomen. There is no organomegaly. There is no localized tenderness to deep palpation. Perianal: No perianal lesions or soiling. Extremities: No edema, clubbing or cyanosis. Neuro: Nonfocal. Lab/Other Information Recent Results (from the past 24 hour(s)) IGA BLOOD Collection Time 11/19/11 10:50 AM Component Value Range IGA 136 45 - 236 (mg/dl) Active Hospital Problems Diagnoses Date Noted ??? Constipation 06/07/2011 Chronic constipation with acute episode of no BM x 2 weeks. No relief of symptoms with milk of magnesia or fleet enemas at home. Denies any pain/discomfort. Has tolerated PO intake at home. Abdominalfilms show very large amount of air and feces throughout the length of the colon with no evidence of bowel obstruction or perforation. Somepast workup with prior hospitalization in 2008 at [facility]. Recently seen in June 2011 for constipation and suspected FTT. Plan: NG tube placement Golytely at maintenance NPO MIVF Monitor I/O's ??? ADHD (attention deficit hyperactivity disorder) 06/07/2011 H/o ADHD. On Focalin. Plan: Will ask mom to bring home medications (not available on formulary) ??? Bipolar 1 disorder 06/07/2011 H/o bipolar, ADHD, ODD followed by outside psychiatrist. Plan: Continue home medications (Seroquel TID, Zoloft BID, Trazadone QHS). See resident's H&P for further details. Thony Montez MD [phone] CC: Geo Goyal MD [address] [place] [address] [address] / [facility] [id number] * Thony Montez MD - 11/18/2011 10:03 PM CDT Pediatric Resident Admission Note Admit Date: 11/18/2011 4:00 PM Chief Complaint constipation History of Present Illness Maera Jaguar Frances is a 11 y.o. female with PMH of chronic constipation, FTT, ADHD, bipolar, ODD presents with cc of constipation with no bowel movement in 2 weeks. Has been giving milk of magnesia daily and has tried at least 2 fleet enemas (last one 2 days ago) without relief. Denies any pain or abdominal discomfort. Continues to eat well. Reports difficulty urinating when sits down. In ED, +incontinence/urination when stood up in room. Xray in ED showed very large amount of air and feces throughout the length of the colon with no evidence of bowel obstruction or perforation. Per mom, has had chronic constipation with intermittent episodes since infancy. Has been admitted in 2008 for workup that included fecal disimpaction with scope. Most recently seen by GI at [facility] and referred to nutrition here at [facility] (per records, concern of FTT in 2010). Mom reports trying various treatments over years including miralax (which doesn't work ) and a high fiber diet. States Yolanda loves dairy and sneaks dairy products constantly. Has had some accidents at school with constipation. She does hold it sometimes due to pain. 3 weeks ago with constipation and finally passed softball size stool. Of note, FTT is improved. Today is 25% for weight, was <5% in June 2011. Past Medical History No history on file. Past Medical History Diagnosis Date ??? Headache started approximately 2 years ago ??? S/P colonoscopy age 6y/o ??? ADHD (attention deficit hyperactivity disorder) ??? Sensory integration disorder ??? Bipolar affective ??? ODD (oppositional defiant disorder) ??? Aggression ??? Learning disability ??? Constipation, chronic Past Surgical History Tonsillectomy Immunizations Immunization status: stated as current, but no records available. Allergies Allergies Allergen Reactions ??? Tegretol (Carbamazepine) Rash ??? Stimulant Laxative (Bisacodyl) Rash Family History Family History Problem Relation Age of Onset ??? Migraine Mother Social History Lives with mom, stepfather, sister. Father smokes outside. No animals. 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 Review of Systems Review of Systems Constitutional: Negative for fever, activity change and appetite change. HENT: Negative for nosebleeds, congestion and sore throat. Respiratory: Negative for cough, wheezing and stridor. Cardiovascular: Negative for leg swelling. Gastrointestinal: Positive for constipation. Negative for nausea, vomiting, abdominal pain, diarrhea and abdominal distention. Genitourinary: Positive for difficulty urinating. Negative for decreased urine volume. Musculoskeletal: Negative for myalgias, back pain and arthralgias. Neurological: Negative for dizziness and light-headedness. Hematological: Negative for adenopathy. Psychiatric/Behavioral: The patient is hyperactive. Exam Vitals BP: 90/62 mmHg (11/18/112054) Temp: 97.8 ??F (11/18/112054) Pulse: 78 (11/18/112054) Resp: 20 (11/18/112054) Weight: 26.5 kg (58 lb 6.8 oz) (11/18/11 1307) General: well appearing, smiling, active, talkative, in no acute distress Head: normocephalic, atraumatic Eyes: sclera and conjunctiva clear, EOMI and PERRL, lids normal Oropharynx: moist mucous membranes, no pharyngeal erythema Neck: supple, non-tender, with full ROM, and no lymphadenopathy Cardiovascular: regular rate and rhythm, normal S1 and S2, no murmurs Chest: breath sounds symmetrical without rales or wheezes, good air movement and no retractions or tracheal tugging Abdomen: firm, NT/ND, +BSx4 Musculoskeletal: No clubbing, cyanosis or edema Skin: no rashes Neuro: alert, oriented, normal speech, no focal findings or movement disorder noted Labs/Objective Abdominal xrays: There is also a very large amount of air and feces throughout the length of the colon. There is no evidence of bowel obstruction or perforation Active Hospital Problems Diagnoses Date Noted ??? Constipation 06/07/2011 Priority: High Chronic constipation with acute episode of no BM x 2 weeks. No relief of symptoms with milk of magnesia or fleet enemas at home. Denies any pain/discomfort. Has tolerated PO intake at home. Abdominalfilms show very large amount of air and feces throughout the length of the colon with no evidence of bowel obstruction or perforation. Somepast workup with prior hospitalization in 2008 at [facility]. Recently seen in June 2011 for constipation and suspected FTT. Plan: NG tube placement Golytely at maintenance NPO MIVF Monitor I/O's ??? ADHD (attention deficit hyperactivity disorder) 06/07/2011 H/o ADHD. On Focalin. Plan: Will ask mom to bring home medications (not available on formulary) ??? Bipolar 1 disorder 06/07/2011 H/o bipolar, ADHD, ODD followed by outside psychiatrist. Plan: Continue home medications (Seroquel TID, Zoloft BID, Trazadone QHS). Pita Mckeon, DO Attending Physician Supervisory Note I personally interviewed and examined the patient and agree with the doctor above. No parent present during rounds. 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 Pt, a 11 yo W/F with dx of headache, chronic constipation since infancy, a hx of FTT which is better now, ADD, Bi polar and ODD. Pt was admitted on 11/18/11 for constipation. Worker was unable to meet with mother at bedside, but did talk with her over the phone when she was on her way home after visiting pt this afternoon. Family profile on pt is that she resides with mother, Karyna Guzmán, age 28, BD 12-7-83, herstep father and her sister who is 3 years old. Her sister accompanied mother today and they all spent time in the [employer] playroom doing a crafts project. A review of pt's chart, and consultation with GI RN and Dr indicate that [facility]. At one time, [facility] wasbeing considered for pt's adjunct faculty for medical terminology GI problems, but Kathy was not able to accept her due to her many psych issues. Pt also has a PCP, Geo Goyal MD whose phone number is [phone]. When worker addressed the issues of concern, mother stated that she is not involved with IDCFS. Shefurther stated that pt's psych issues have nothing to do with her hospitalization. Pt's psychiatrist is working on a plan for pt which mother did not want to share with this worker or the Drs. When worker explained that the staff here was trying to determine if she had any needs we could help with,or share additional resources , mother said she appreciated our concerns. She did not want to talk further about the psych plan, and states she has everything under control, and doesn't need our help. When asked if mother was able to get all the medications needed, she said that pt has [place] Medicaid and she did not need further help with medications. Mother has worker's name and #, and workeroffered to be available to mother, if needed. Discharge Plan: No custody issues identified and no barriers to follow up care Pt can be discharged to mother when medically ready Worker will keep case open for further social service intervention as needed, until pt is discharged home. Tory Pineda LCSW [phone] . documented in this encounter ED Notes * Phoebe Allen MD - 11/18/2011 1:43 PM CDT Images from the original note were not included. EMERGENCY DEPARTMENT 11/18/[address] Geo Goyal MD We had the pleasure of caring for your patient, Mae Frances in our emergency department on 11/18/2011. A note from the provider(s) who cared for your patient is attached. Should you wish to access any laboratory results, please call . Should you wish to access any radiology results, please call , option 3. In addition, you can access patient information 24 hours a day, from any computer, through [facility], the online version of our electronic medical record. If you would like to use this service, please call Jadyn Zazueta, Connectivity Coordinator, at . We appreciate the opportunity to care for your patients. If you would like additional information, please call the emergency department directly at . Sincerely, Phoebe Allen MD Division of Emergency Medicine [facility], [place] [facility] [place] DESIGNATED EMERGENCY DEPARTMENT Provider contact with the patient: 11/18/2011 1:43 PM Mae Montesinos Torstenrosathad [id number] [facility] EMERGENCY DEPT History Chief Complaint Patient presents with ??? Pain Abdominal no BM x 2 weeks; h/o chronic constipation. mom called PMD on Saturday; enema given x 1 yest with small smear only and repeated today with no results. Alert, walking; incontinent of urine here when she tried to have a BM. abd very large/firm with no bowel sounds. Pt asking to ear. Aware to stay NPO. h/o disimpaction here 2 years ago. Pain Abdominal The history is provided by the parent. This is a recurrent problem. The current episode started more than 1 week ago. The problem occurs constantly. The problem has been gradually worsening. The painis located in the generalized abdominal region. The pain is mild. Pertinent negatives include no fever, no diarrhea or no vomiting.Associated symptoms comments: Urinary incontinence. The pain is worsened by being still. The pain is relieved by nothing. Past workup includes colonoscopy. Past Medical History Diagnosis Date ??? Headache [...] Social History Main Topics ??? Smoking status: Not on file ??? Smokeless tobacco: Not on file ??? Alcohol Use: ??? Drug Use: ??? Sexually Active: Other Topics Concern ??? Not on file Social History Narrative ??? No narrative on file Medications Current Outpatient Prescriptions Medication Sig Dispense Refill ??? QUEtiapine (SEROQUEL) 100 MG tablet Take 100 mg by mouth 3 times daily. ??? dexmethylphenidate (FOCALIN) 10 MG tablet Take 10 mg by mouth 3 times daily. ??? Magnesium Hydroxide (MILK OF MAGNESIA PO) Take by mouth. ??? sertraline (ZOLOFT) 50 MG tablet Take 50 mg by mouth daily. Take 1 1/2 tabs Daily ??? trazodone (DESYREL) 100 MG tablet Take 100 mg by mouth at bedtime. Review of Systems Review of Systems Constitutional: Negative for fever. HENT: Negative. Eyes: Negative. Respiratory: Negative. Cardiovascular: Negative. Gastrointestinal: Positive for abdominal pain. Negative for vomiting and diarrhea. BP 90/70 Pulse 88 Temp 98.4 ??F Resp 20 Wt 26.5 kg (58 lb 6.8 oz) Physical Exam Physical Exam Constitutional: She appears well-developed. No distress. HENT: Right Ear: Tympanic membrane normal. Left Ear: Tympanic membrane normal. Nose: Nose normal. Mouth/Throat: Mucous membranes are moist. Oropharynx is clear. Eyes: Conjunctivae are normal. Pupils are equal, round, and reactive to light. Neck: Normal range of motion. Neck supple. Cardiovascular: Normal rate, regular rhythm, S1 normal and S2 normal. Pulmonary/Chest: Effort normal and breath sounds normal. Abdominal: She exhibits distension. There is no tenderness. There is no rebound and no guarding. Visible bowel lops on abdomen. Firm on palpation Neurological: She is alert. Procedures Procedures EKG Interpretation Lab/SPO2 Interpretation Progress Notes: I have personally seen and examined this patient. I have fully participated in the care of this patient. I have reviewed all pertinent clinical information, including history, physical exam and plan. I have reviewed the nurses notes. I have reviewed available labs and radiographic studies. ED Course: X-ray shows dilated loops of bowel, with retained stool. Discussed with Dr. Montez, will admit for [facility] Medical Decision Making I have reviewed the: Nursing Notes and Vitals. I have interpreted the following results: X-Ray. I have discussed the case with GI. Clinical Impression: constipation documented in this encounter Miscellaneous Notes * Miscellaneous Scans - Document, Scanned - 01/08/2012 1:30 PM CDT * Miscellaneous Scans - Document, Scanned - 01/02/2012 12:08 PM CDT * Miscellaneous Scans - Document, Scanned - 12/31/2011 1:04 PM CDT * Miscellaneous Scans - Document, Scanned - 11/28/2011 1:45 PM CDT documented in this encounter Plan of Treatment Not on file documented as of this encounter Procedures Procedure Name Priority Date/Time Associated Diagnosis Comments IP CONSULT TO PROJECT LEAD Routine 11/19/2011 4:50 PM CDT TISSUE TRANSGLUTAMINASE AB IGA Routine 11/19/2011 10:50 AM CDT IGA BLOOD Routine 11/19/2011 10:50 AM CDT XR ABD OBSTRUCTION SERIES 2VW STAT 11/18/2011 2:24 PM CDT Constipation documented in this encounter Results * IP CONSULT TO PROJECT LEAD (11/19/2011 4:50 PM CDT) Narrative Tory Pineda LCSW - 11/19/2011 4:50 PM CDT Tory Pineda LCSW ? 11/19/2011 ??4:51 PM SOCIAL SERVICE CONSULT - BRIEF Reason for Referral: ?? Drs requesting clarification of IDCFS involvement and possible adjunct faculty for medical terminology psych placement Assessment/Interventions/Plan: ? 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 ??Pt, a 11 yo W/F with dx of headache, chronic constipation since infancy, a hx of FTT which is better now, ADD, Bi polar and ODD. ??Pt was admitted on 11/18/11 for constipation. ??Worker was unable to meet with mother at bedside, but did talk with her over the phone when she was on her way home after visiting pt this afternoon. Family profile on pt is that she resides with mother, Karyna Guzmán, age 28, BD 12-7-83, her step father and her sister who is 3 years old. ??Her sister accompanied mother today and they all spent time in the [employer] playroom doing a Wayin. A review of pt's chart, and consultation with GI RN and Dr indicate that [facility]. ??At one time, [facility] was being considered for pt's adjunct faculty for medical terminology GI problems, but Kathy was not able to accept her due to her many psych issues. Pt also has a PCP, Geo Goyal MD whose phone number is [phone]. When worker addressed the issues of concern, mother stated that she is not involved with IDCFS. ??She further stated that pt's psych issues have nothing to do with her hospitalization. ??Pt's psychiatrist is working on a plan for pt which mother did not want to share with this worker or the Drs. ??When worker explained that the staff here ??was trying to determine if she had any needs we could help with, or share additional resources , mother said she appreciated our concerns. ??She did not want to talk further about the psych plan, and states she has everything under control, and doesn't need our help. ??When asked if mother was able to get all the medications needed, she said that pt has [place] Medicaid and she did not need further help with medications. ??Mother has worker's name and #, and worker offered to be available to mother, if needed. Discharge Plan: No custody issues identified and no barriers to follow up care Pt can be discharged to mother when medically ready Worker will keep case open for further social service intervention as needed, until pt is discharged home. Tory Pineda LCSW [phone] . ? 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 Pt, a 11 yo W/F with dx ofheadache, chronic constipation since infancy, a hx of FTT which is betternow, ADD, Bi polar and ODD. Pt was admitted on 11/18/11 for constipation.Worker was unable to meet with mother at bedside, but did talk with herover the phone when she was on her way home after visiting pt thisafternoon. Family profile on pt is that she resides with mother, Karyna Barnes, age 28, BD 12-7-83, her step father and her sister who is 3years old. Her sister accompanied mother today and they all spent time inthe [employer] playroom doing a [employer] project. A review of pt's chart, and consultation with GI RN and Dr indicate thatpt [facility]. At one time, [facility] was being consideredfor pt's adjunct faculty for medical terminology GI problems, but [facility] was not able to accept her dueto her many psych issues. Pt also has a PCP, Geo Goyal MD whose phonenumber is [phone]. When worker addressed the issues of concern, mother stated that she is notinvolved with IDCFS. She further stated that pt's psych issues havenothing to do with her hospitalization. Pt's psychiatrist is working on aplan for pt which mother did not want to share with this worker or theDrs. When worker explained that the staff here was trying to determineif she had any needs we could help with, or share additional resources ,mother said she appreciated our concerns. She did not want to talkfurther about the psych plan, and states she has everything under control,and doesn't need our help. When asked if mother was able to get all themedications needed, she said that pt has [place] Medicaid and she did notneed further help with medications. Mother has worker's name and #, andworker offered to be available to mother, if needed. Discharge Plan: No custody issues identified and no barriers to follow up care Pt can be discharged to mother when medically ready Worker will keep case open for further social service intervention asneeded, until pt is discharged home. Tory Pineda, [facility] [phone] . Nuno Lawson MD INPATIENT ANCILLARY CONSULT * IGA BLOOD (11/19/2011 10:50 AM CDT) IgA 136 45 - 236 mg/dl [facility] Blood specimen (specimen) BLOOD SPECIMEN / Unknown 11/19/2011 10:50 AM CDT 11/19/2011 10:57 AM CDT Nuno Lawson MD LAB - CHEMISTRY ERIN AGUILAR [facility] [address] [place] [address] * TISSUE TRANSGLUTAMINASE AB IGA (11/19/2011 10:50 AM CDT) Transglutaminase Antibody IgA 7 0 - 19 units [facility] Comment Ref Lab [facility] Comment: INTERPRETIVE INFORMATION: Tissue Transglutaminase (tTG) Antibody, IgA 19 Units or less: Negative 20-30 Units: Weak Positive 31 Units or greater: Moderate to Strong Positive Presence of the tissue transglutaminase (tTG) IgA antibody is associated with gluten-sensitive enteropathies such as celiac disease and dermatitis herpetiformis. tTG IgA antibody concentrations greater than or equal to 100 Units usually correlate with results of duodenal biopsies consistent with a diagnosis of celiac disease. For antibody concentrations greater than 20 Units but less than 100 Units, additional testing for endomysial (MOISES) IgA concentrations may improve the positive predictive value for disease. Blood specimen (specimen) BLOOD SPECIMEN / Unknown 11/19/2011 10:50 AM CDT 11/19/2011 10:57 AM CDT Narrative [facility] - 11/20/2011 12:07 PM CDT 1 Resulting Agency Comment Performed By Hired ? [address] ? [place], [place] [address] Nuno Lawson MD LAB - SEROLOGY ORDER LUCIA [facility] [address] [place] [address] * XR ABD OBSTR SERIES (11/18/2011 2:24 PM CDT) Anatomical Region Laterality Modality Abdomen Radiographic Melina ging 11/18/2011 4:00 PM CDT Impressions 11/18/2011 4:00 PM CDT The above findings are consistent with the clinical history of constipation. There may be a degree of urinary retention as well. Narrative 11/18/2011 4:00 PM CDT Obstructive series performed November 18, 2011. History: Constipation. AP supine and upright views of the abdomen and pelvis were obtained. There is soft tissue fullness in the pelvis most likely representing a distended urinary bladder. There is also a very large amount of air and feces throughout the length of the colon. There is no evidence of bowel obstruction or perforation. The lung bases are clear. The visualized bony structures are grossly intact. Procedure Note Elisa Coe MD - 11/18/2011 Obstructive series performed November 18, 2011. History: Constipation. AP supine and upright views of the abdomen and pelvis were obtained. There is soft tissue fullness in the pelvis most likely representing a distended urinary bladder. There is also a very large amount of air and feces throughout the length of the colon. There is no evidence of bowel obstruction or perforation. The lung bases are clear. The visualized bony structures are grossly intact. IMPRESSION The above findings are consistent with the clinical history of constipation. There may be a degree of urinary retention as well. Phoebe Allen MD DIAGNOSTIC IMAGING O RDERABLES documented in this encounter Visit Diagnoses Diagnosis Constipation Unspecified constipation Constipation Constipation Unspecified constipation ADHD (attention deficit hyperactivity disorder) Attention deficit disorder with hyperactivity Bipolar 1 disorder (HCC) Bipolar I disorder, most recent episode (or current) unspecified documented in this encounter Administered Medications Inactive Administered Medications - up to 3 most recent administrations Medication Order MAR Action Action Date Dose Rate Site acetaminophen (TYLENOL) solution 240-400 mg 240-400 mg (9.06-15.09 mg/kg = 10-15 mg/kg ? 26.5 kg), Oral, EVERY 6 HOURS PRN, Fever, Pain, Starting on Sat11/18/11 at 1705, Until Gladis 11/22/11 at 0649, Do not exceed 75 mg/kg/day or 4 g/day whichever is less $ Given 11/20/2011 7:06 PM CDT 400 mg dextrose 5% and 0.45% NaCl with KCl 20 mEq infusion at 30 mL/hr, Intravenous, CONTINUOUS, Starting on Sat11/18/11 at 1745, Until Gladis 11/22/11 at 0649 $ New Bag/Syringe 11/20/2011 10:19 PM CDT 30 mL/hr Current Rate 11/20/2011 4:58 PM CDT 30 mL/hr $ New Bag/Syringe 11/20/2011 2:30 AM CDT 65 mL/ hr magnesium citrate solution 150 mL 150 mL (5.66 mL/kg), Per NG/OG Tube, ONCE, 1 dose, On Sat11/21/11 at 1000 $ Given 11/21/2011 2:20 PM CDT 150 mL ondansetron (ZOFRAN) injection 2 mg 2 mg (0.0755 mg/kg), Intravenous, NOW, 1 dose, On Sat11/21/11 at 0915 $ Given 11/21/2011 9:28 AM CDT 2 mg polyethylene glycol (GoLYTELY;NuLYTELY) 240 GM solution 4,000 mL 4,000 mL (151 mL/kg = 4 L), Oral, ONCE, 1 dose, On Sat11/18/11 at 1730, Run continuous at 65 cc/hr. $ Given 11/18/2011 7:22 PM CDT 4,000 mL polyethylene glycol (GoLYTELY;NuLYTELY) 240 GM solution 4,000 mL 4,000 mL (151 mL/kg = 4 L), Per NG/OG Tube, CONTINUOUS, Starting on Sat11/19/11 at 1015, Until Sat11/21/11 at 0757, Run at 65 ml per hour $ New Bag/Syringe 11/19/2011 11:15 AM CDT 4,000 mL mL/hr QUEtiapine (SEROquel) tablet 100 mg 100 mg, Oral, 3 TIMES DAILY, First dose on Sat11/18/11 at 2030, Until Discontinued $ Given 11/21/2011 1:31 PM CDT 100 mg $ Given 11/21/2011 6:42 AM CDT 100 mg $ Given 11/20/2011 7:06 PM CDT 100 mg sertraline (ZOLOFT) tablet 100 mg 100 mg, Oral, 2 TIMES DAILY (,), First dose on 11/18/11 at 1900, Until Discontinued, Avoid concurrent administration with grapefruit juice $ Given 11/21/2011 6:42 AM CDT 100 mg $ Given 11/20/2011 7:06 PM CDT 100 mg $ Given 11/20/2011 6:27 AM CDT 100 mg traZODone (DESYREL) tablet 100 mg 100 mg, Oral, AT BEDTIME, First dose on 11/18/11 at 2030, Until Discontinued $ Given 11/20/2011 8:18 PM CDT 100 mg $ Given 11/19/2011 8:31 PM CDT 100 mg $ Given 11/18/2011 9:06 PM CDT 100 mg documented in this encounter Active and Recently Administered Medications Times are shown in CDT. Scheduled Medication Order 11/19/2011 11/20/2011 11/21/2011 magnesium citrate solution 150 mL (COMPLETED) 150 mL (5.66 mL/kg), Per NG/OG Tube, ONCE, 1 dose, On Sat11/21/11 at 1000 1420 ($ Given - Provider: Odalis Salinas, SHANELL) ondansetron (ZOFRAN) injection 2 mg (COMPLETED) 2 mg (0.0755 mg/kg), Intravenous, NOW, 1 dose, On Sat11/21/11 at 0915 0928 ($ Given - Provider: Odalis Salinas, RN) QUEtiapine (SEROquel) tablet 100 mg (CANCELED) 100 mg, Oral, 3 TIMES DAILY, First dose on 11/18/11 at 2030, Until Discontinued 1015 ($ Given - Provider: Adele Bradley, SHANELL)1501 ($ Given - Provider: Madonna Lu, SHANELL)1931 ($ Given - Provider: Ivett Gold) 0627 ($ Given - Provider: Rima White, SHANELL)1442 ($ Given - Provider: Madonna Lu, RN)1906 ($ Given - Provider: Madonna Lu, RN) 0642 ($ Given - Provider: Rocio Dhaliwal RN)1331 ($ Given - Provider: Odalis Salinas, SHANELL) sertraline (ZOLOFT) tablet 100 mg (CANCELED) 100 mg, Oral, 2 TIMES DAILY (), First dose on 11/18/11 at 1900, Until Discontinued, Avoid concurrent administration with grapefruit juice 0904 ($ Given - Provider: Adele Bradley, SHANELL)1931 ($ Given - Provider: Ivett Gold) 0627 ($ Given - Provider: Rima White, RN)1906 ($ Given - Provider: Madonna Lu, RN) 0642 ($ Given - Provider: Rocio Dhaliwal, RN) traZODone (DESYREL) tablet 100 mg (CANCELED) 100 mg, Oral, AT BEDTIME, First dose on 11/18/11 at 2030, Until Discontinued 2030 ($ Given - Provider: Rima White, RN) 2017 ($ Given - Provider: Rocio Dhaliwal, RN) Continuous Medication Order 11/19/2011 11/20/2011 11/21/2011 dextrose 5% and 0.45% NaCl with KCl 20 mEq infusion (CANCELED) at 30 mL/hr, Intravenous, CONTINUOUS, Starting on 11/18/11 at 1745, Until Gladis 11/22/11 at 0649 1111 ($ New Bag/Syringe - Provider: Ivett Gold) 0230 ($ New Bag/Syringe - Provider: Rima White, SHANELL)1658 (Current Rate - Provider: Madonna Lu, RN)2219 ($ New Bag/Syringe - Provider: Rocio Dhaliwal, SHANELL) polyethylene glycol (GoLYTELY;NuLYTELY) 240 GM solution 4,000 mL (CANCELED) 4,000 mL (151 mL/kg = 4 L), Per NG/OG Tube, CONTINUOUS, Starting on 11/19/11 at 1015, Until Sat11/21/11 at 0757, Run at 65 ml per hour 1115 ($ New Bag/Syringe - Provider: Ivett Gold) PRN Medication Order 11/19/2011 11/20/2011 11/21/2011 acetaminophen (TYLENOL) solution 240-400 mg (CANCELED) 240-400 mg (9.06-15.09 mg/kg = 10-15 mg/kg ? 26.5 kg), Oral, EVERY 6 HOURS PRN, Fever, Pain, Starting on 11/18/11 at 1705, Until Gladis 11/22/11 at 0649, Do not exceed 75 mg/kg/day or 4 g/day whichever is less 1906 ($ Given - Provider: Madonna Lu RN) documented in this encounter Care Teams Environmental Services Associate Relationship Specialty Start Date End Date Geo Goyal MD [address] [place] [id number] PCP - General 08/24/09 01/15/22 documented as of this encounter
--- OUTSIDE RECORDS SUMMARY | 2024-08-02 02:37 | XMS_ITS | Encounter Summary ---
Author Organization [facility] Address [address] [facility] [place] [address] Care Team Providers Care Target Protection Specialist Name Role Phone Geo Goyal MD Primary Care Provider Encounter Details Date Type Department Care Team (Latest Contact Info) Description 07/10/2010 12:01 AM LEAD CUSTODIAN - 07/10/2010 10:29 AM [facility] Hospital Encounter [facility] Pediatrics - Neurology [facility] [facility] [place] [address] Barry Heredia MD [address] [place], [place] [id number] [place] [address] Neurology Discharge Disposition: Home or Self Care Social History Tobacco Use Types Packs/Day Years Used Date Smoking Tobacco: Never Assessed Sex and Gender Information Value Date Recorded Sex Assigned at Not on file Gender Identity Not on file Sexual Orientation Not on file documented as of this encounter Medications at Time of Discharge Medication Sig Dispensed Refills Start Date End Date guanfacine (TENEX) 1 MG tablet Take 1 [...] on filedocumented in this encounter Care Teams Target Protection Specialist Relationship Specialty Start Date End Date Geo Goyal MD [address] [place] [address] PCP - General 08/24/09 01/15/22 documented as of this encounter
--- OUTSIDE RECORDS SUMMARY | 2024-08-02 02:37 | XMS_ITS | Encounter Summary ---
Author Organization [facility] Address [address] [place] [address] Care Team Providers Care Sandblast Or Shotblast Equipment Tender Name Role Phone Geo Goyal MD Primary Care Provider [phone] Encounter Details Date Type Department Care Team (Latest Contact Info) Description 08/24/2009 11:06 AM RESISTANCE BRAZER - 08/24/2009 11:59 PM [facility] Hospital Encounter [facility] DEFAULT [address] [place] [address] [place] [address] [place] [address] Endoscopy Discharge Disposition: Home or Self Care Social History Tobacco Use Types Packs/Day Years Used Date Smoking Tobacco: Never Assessed Sex and Gender Information Value Date Recorded Sex Assigned at Not on file Gender Identity Not on file Sexual Orientation Not on file documented as of this encounter Progress Notes * Alyssa Lee MD - 09/05/2009 1:22 PM [facility] Pediatric Endocrinology Dear Dr. Goyal: I had the pleasure of seeing Mae and her mother in consultation in the pediatric endocrinology office at [facility]. As you know, Yolanda is a 8-year-old girl referred for evaluation of poor weight gain. However, when reviewing her provided growth chart it appears that her linear stature is the most concerning part of her history. She has grown well up until about 7 years of age at the 75th percentile, but has now crossed three isopleth's down to the 50th percentile. She has been placed on Adderall 40 mg since the age of about 8 and also takes Risperdal for reported history of bipolar. Her mother states that she has always been a little bit underweight and has had difficulty gaining weight since undergoing abdominal surgery for severe constipation. In June 2009 she was taken to the operating room by our pediatric surgeon for rectal washout and stool disimpaction with a full thickness rectal biopsy. She was prescribed 1/2 packet of MiraLax p.o. b.i.d., but since that time has not been taking it. Instead her medications include Risperdal, Vyvanse and trazodone. Past medical history shows that she was born full term by vaginal delivery weighing 7 pounds 4 ounces. She walked at 10 months and spoke in 2 or 3 words sentences by the age of 4. She is getting additional services at school in the form of reading. Her family history shows that Mother is 26, 5 feet 8 inches and in reported good health. She knows nothing about Yolanda's biological father. Social history shows that Yolanda lives with her mother and her stepfather, as well as her sister. Review of systems is positive only for the constipation, poor intake, poor weight gain as above andoccasional headaches. PHYSICAL EXAM: Weight is 21.2 kg now between the 25th and 50th percentile. Height is 116 cm between the 10th the 25th percentile. In general, Yolanda was very pleasant, well-appearing little girl. HEENT was within normal limits. Neck without goiter. Lungs: Clear to auscultation. Heart: Regular rate and rhythm withno murmurs. Abdomen: Soft and nontender with no organomegaly. was Nikos stage I female. Extremities were normally formed with no edema and neurologic exam was nonfocal. LABORATORY STUDIES: Free T4 1.4 by direct analysis. Bone age at a chronological age of 8 years and 10 months was 5 years 9 months. TTG 12 units. Chromosomal analysis showed a pattern of 46, XX normal female. IMPRESSION: Yolanda is a 8-year-old girl who has crossed growth percentiles in the last couple of years, possibly related to her psychostimulant medication. At this time we do not have a firm idea of what her midparental target is because we have no idea how tall her father as. Her weight, however, is appropriate and her BMI is normal. She does not have Redding syndrome nor does she have any clinical stigmataof Redding syndrome. Yolanda's mother desires follow-up in [facility] and, therefore, she will be following up there to follow her growth closely. I would like to see her back in 6 months just to assess her interim growth velocity and make sure she is not falling off on any more growth points. Thank you for allowing me to participate in Yolanda's care. If you have any questions, please do nothesitate to contact me. Dictated By: ALYSSA LEE MD Electronically Signed 09/12/2009 12:36:26 RESISTANCE BRAZER DESIREE/Avinash JOB ID: [id number] cc: GEO GOYAL MD STANCE BRAZER documented in this encounter Plan of Treatment Scheduled Orders Name Type Priority Associated Diagnoses Orde r Schedule XR BONE AGE HAND AND WRIST Imaging Routine ONCE for 1 Occur rences starting 08/24/2009 until 08/24/2009, 1 completed documented as of this encounter Procedures Procedure Name Priority Date/Time Associated Diagnosis Comments T4 FREE DIRECT DIALYSIS Routine 08/24/2009 12:00 PM RESISTANCE BRAZER Short Stature SOMATOMEDIN C (IGF-1) Routine 08/24/2009 12:00 PM RESISTANCE BRAZER Short Stature XR BONE AGE STUDY Routine 08/24/2009 11: 54 AM RESISTANCE BRAZER Short Stature documented in this encounter Results * SOMATOMEDIN C (IGF-1) (08/24/2009 12:00 PM RESISTANCE BRAZER) Somatomedin C 554 ng/ml BERNIE AGUILA [facility] Reference Range CARD SUMIT [facility] Comment: Pediatric Endocrine Laboratory Reference Ranges ? [...] 322 ? 8.5 ?74-423 ? 249 ? 102-058 ? 345 ? 9.0 ?72-762 ? 262 ? 107-882 ? 370 ? 9.5 ?69-490 ? 280 ? 113-678 ? 395 ? 10.0 ? 10-346 ? 302 ? 119-197 ? 421 ? 10.5 ? 99-201 ? 328 ? 126-015 ? 446 ? 11.0 ? 36-771 ? 358 ? 136-802 ? 469 ? [...] 555 ? 240-822 ? 531 ? 15.0 ?177-972 ? 560 ? 244-803 ? 524 ? 15.5 ?194-910 ? 552 ? 237-791 ? 514 ? 16.0 ?205-851 ? 528 ? 215-794 ? 505 ? 16.5 ?206-764 ? 485 ? 171-823 ? 497 ? 17.0 ?194-646 ? 420 ?77-889 ? 494 ? ADULT ? MALE ?FEMALE [...] BLOOD SPECIMEN / Unknown 08/24/2009 12:00 PM RESISTANCE BRAZER Narrative Resulting Agency Comment Performed By Pediatric Endocrinology ? [address] ? [facility] [address] Alyssa Lee MD LAB - CHEMISTRY ERIN AGUILAR Performing Organization Address [facility] [[email or web address]] Co de Phone Number [facility] * T4 FREE DIRECT DIALYSIS (08/24/2009 12:00 PM RESISTANCE BRAZER) T4 Free Direct Dialysis 1.4 1.0 - 2.0 ng/dl [facility] BLOOD SPECIMEN / Unknown 08/24/2009 12:00 PM RESISTANCE BRAZER Narrative Resulting Agency Comment Performed By [employer] ? [address] ? [place], [place] [address] Alyssa Lee MD LAB - CHEMISTRY ERIN AGUILAR Performing Organization Address [facility] [[email or web address]] Co de Phone Number [facility] * XR BONE AGE HAND AND WRIST (08/24/2009 11:54 AM RESISTANCE BRAZER) Anatomical Region Laterality Modality Upper Extremity, Wrist / Hand Ot her 08/24/2009 11:5 4 AM RESISTANCE BRAZER Narrative 08/24/2009 2:11 PM RESISTANCE BRAZER Bone age- ??5 years 9 months Method- ??Greulich and Judith Chronologic age- ??8 years 10 months Standard deviation- ??8.3 months Skeletal maturation- ??Normal Carla Dumont MD (resident). ? Reading Radiologist- RACIEL BARRIENTOS MD ? Releasing Radiologist- RACIEL BARRIENTOS MD ? Released Date Time- 08/24/09 1412 ? Client Partner- ROSIE DUMONT MD ? ADM- KANAFANI,NADIM ? ATT- KANAFANI,NADIM ORD- KANAFANI,NADIM ? CON- PCP- GEO GOYAL ?SCP- Procedure Note Raciel Barrientos - 08/24/2009 Bone age- 5 years 9 months Method- Valentínulich and Judith Chronologic age- 8 years 10 months Standard deviation- 8.3 months Skeletal maturation- Normal Carla Dumont MD (resident). Reading Radiologist- RACIEL BARRIENTOS MD Releasing RadiologistReynaldo BARRIENTOS MD Released Date Time- 08/24/09 1412 Client Partner- ROSIE DUMONT MD - ALYSSA LEE- JESUS,ALYSSA ORD- ALYSSA LEE- PCP- GEO GOYAL SCP- Alyssa Lee MD DIAGNOSTIC IMAGING O TOD documented in this encounter Visit Diagnoses Diagnosis Short stature documented in this encounter Care Teams Sandblast Or Shotblast Equipment Tender Relationship Specialty Start Date End Date Geo Goyal MD [address] [place] [id number] PCP - General 08/24/09 01/15/22 documented as of this encounter
--- OUTSIDE RECORDS SUMMARY | 2024-08-02 02:37 | XMS_ITS | Continuity of Care Document ---
Author Organization [facility] [place] Address [address] [place] [address] Assessment Encounter Date Assessment Date Assessment LastModified by Organization Details LastModified Time 06/24/2024 06/24/2024 Patient is _24__weeks . Discussed plan. Not available 06/24/2024 12:42:13 Plan of Treatment Reminders Order Date Submit Date Provider Last Modified By Organization Details Last Modified Time Details Appointments U/S OB GROWTH 2024 08:30A M ULTRASOUND Not available Not available Not available OB ROUTINE 2024 09:45A M Saknia Cantrell CNM Not available Not available Not available Lab None recorde d. Referral None recorde d. Procedures None recorde d. Surgeries None recorde d. Imaging None recorde d. Medication Orders None recorde d. Patient TargetsNo targets recorded. Patient InstructionsNo instructions recorded. Reason for Referral None Reported. Results Created Date Observation Date Name Description Value Unit Range Abnormal Flag Note LastModifiedBy Organization Detail LastModifiedTime 04/01/2004/02/2024 US, obste tric, nucha l trans lucen cy No observ ation record ed. [email or web address] [place] [address], [place], [address], 04/02/2024 10:04:48 04/01/20 24 04/01/2024 US, obste tric, follo w-up No observ ation record ed. [email or web address] [address], [place], [address], 04/02/2024 08:29:18 05/26/20 24 05/26/2024 US, obste tric, 2nd or 3rd trime ster No observ ation record ed. [email or web address] [address], [place], [address], 05/27/2024 18:34:24 05/26/20 24 05/26/2024 US, obste tric, 2nd or 3rd trime ster No observ ation record ed. [facility] [address], [place], [address], 05/26/2024 18:10:56 06/24/20 24 06/24/2024 US, obste tric, trans vagin al No observ ation record ed. [address], [place], [address], 06/24/2024 12:45:58 06/24/20 24 06/24/2024 US, obste tric, follo w-up No observ ation record ed. [address], [place], [address], 06/24/2024 12:46:08 06/24/20 24 06/24/2024 US, obste tric, follo w-up No observ ation record ed. [email or web address] [address], [place], [address], 06/25/2024 09:19:38 Result Notes None recorded. Problems Name Problem SNOMED Code Status Onset Date Resolution Date Notes Provider Name and Address Organization Details Recorded Time 07611860 Active 2023 Corine Novak [facility], [facility] 18:26:41 History of chlamydia l infection 657775892 Active chl neg John Marquez [facility] 15:43:29 Alpha thalassem ia 52023616 Active 2023 silent carrier; low risk John Marquez [facility], [facility] 17:47:43 Low lying placenta 821363053 Active resolved Sakina Cantrell CNM [address], [place], [address], [facility] 12:41:38 Mixed anxiety and depressiv e disorder 987278522 Active [address] [facility] 12:29:58 Problem Notes None recorded. Procedures Surgical History Date Name Laterality Status Provider Name and Address Organization Details Recorded Time 02/19/20 24 Date of Last Pap Smear completed Corine Novak [facility] 02/19/2024 15:34:35 12/26/19 23 Nexplanon Removal completed Jacey Chavez [facility] [address], [place], [address], [facility] 12/25/2022 15:19:15 09/07/19 23 Control Implant Insertion completed Jacey Chavez [facility] [address], [place], [address], [facility] 09/07/2022 14:46:07 08/05/19 11 Tonsillectomy completed Corine Novak [facility] 10/17/2023 12:48:17 Imaging Results None recorded. Procedure Notes None recorded. Medical Equipment None Reported. Allergies Allergen ID Allergen Name Allergen Category Reaction Reaction Severity Criticality Documentation Date Start Date Code Code System Note Provider Name and Address Organization Details Recorded [facility] [address] [facility] Not [facility] Not available Not available 04/01/20242001 RxNorm Corine vargas, [facility] 18:25:07 Medications Name Sig Start Date [...] 2022 active Not Available Not Available Not Mumtaz larson Se--19 29 mg iron-1 mg tablet 10/16 completed Not Available Not Available Not Available Vitals Date Recorded Body height Body mass index (BMI) Body weight Systolic blood pressure Diastolic blood pressure Provider Name and Address Organization Details Last Updated DateTime 06/24/2024 162.56 cm 20.3 kg/m2 04252.89 966 g 107 mm[Hg] 73 mm[Hg] Corine Novak [facility] 12:28:52 Social History Question Answer Notes LastModified by Organizat ion Details LastModified Time Tobacco Smoking Status Never Smoker Sharonaakash Hickeydiana vargas, [facility] 05/01/2023 15:09:00 What Is Your Level Of Alcohol Consumption? None Information not available 03/15/2021 If You Are , What Was Your Level Of Alcohol Consumption Prior To ? Occasional [email or web address] Information not available 02/19/2024 Are You Blind Or Do You Have Difficulty Seeing? No Information not available 03/15/2021 What Is Your Level Of Caffeine Consumption? None Information not available 03/15/2021 In The 14 Days Before Symptom Onset, Have You Had Close Contact With A Laboratory-confir med COVID-19 While That Case Was Ill? No [email or web address] Information not available 07/14/2021 In The 14 Days Before Symptom Onset, Have You Had Close Contact With A Person Who Is Under Investigation For COVID-19 While That Person Was Ill? No [email or web address] Information not available 07/14/2021 Have You Been To An Area Known To Be High Risk For COVID-19? No [email or web address] Information not available 07/14/2021 Are You Deaf Or Do You Have Serious Difficulty Hearing? No Information not available 03/15/2021 What Type Of Diet Are You Following? REGULAR Information not available 03/15/2021 Do You Or Have You Ever Used E-cigarettes Or Vape? Current User Of Electronic Cigarettes [email or web address] Information not available 02/19/2024 Do You Use Your Seat Belt Or Car Seat Routinely? Yes Information not available 03/15/2021 Are You Sexually Active? Yes [email or web address] Information not available 05/01/2023 Do You Have Smoke And Carbon Monoxide Detectors In Your Home? Yes Information not available 03/15/2021 Do You Feel Stressed (tense, Restless, Nervous, Or Anxious, Or Unable To Sleep At Night)? [id number] Information not available 03/15/2021 Do You Use Any Illicit Or Recreational Drugs? Yes Marijuana Information not available 02/19/2024 Do You Use Sunscreen Routinely? Yes Information not available 03/15/2021 Has Tobacco Cessation Counseling Been Provided? No [email or web address] Information not available 05/01/2023 Do You Or Have You Ever Used Any Other Forms Of Tobacco Or Nicotine? Yes [email or web address] Information not available 02/19/2024 Sex: Unknown Functional Status Question Answer Note LastModified by Organizat ion Details LastModified Time Do you have difficulty walking or climbing stairs? No [email or web address] Information not available 05/01/2023 Are you able to walk? [email or web address] Information not available 03/15/2021 Are you able to care for yourself? Yes [email or web address] Information not available 05/01/2023 Do you have difficulty dressing or bathing? No Information not available 05/01/2023 What is your [...] Diagnosis/Indication Diagnosis SNOMED-CT Code Diagnosis ICD10 Code 467435 [facility] [address] [address] 05/26/2024 14:35:17 05/26/2024 17:52:03 screening for malformation 240827244 Z36.3 Z3A.20 [id number] Sakina Cantrell CNM [place] [address] [place] [address] 05/27/2024 17:14:49 05/28/2024 10:29:26 Gestation period, 20 weeks 21095628 Z3A.20 Anxiety 20376889 F41.9 007533 [facility] [address] [place] [address] 06/24/2024 11:40:27 06/24/2024 12:37:10 Low lying placenta 631723148 O44.42 Z3A.24 291845 [facility] [address] [place] [address] 06/24/2024 11:41:44 06/24/2024 12:43:47 Gestation period, 24 weeks 302901405 Z3A.24 Health Concerns Section Related Observation LastModified by Organization Detai ls LastModified Time None Recorded Concern Status LastModified by Organization Details LastModified Time None Recorded Payers Encounter Date Sequence Insurance Name Policy Number Policy Shine Covered Member ID Shine Member ID Guarantor Name 06/24/2024 2 [facility] - DOS ON OR AFTER 21 (MEDICAID REPLACEMENT - HMO) Mae Frances [id number] Mae Frances OBGyn Episode Ob Episode Information Episode Created Date Number of Fetuses Patient Bloodtype Patient rh Status Prepregnancy Weight lbs Domestic Partner Domestic Partner Phone Father Name [employer] Piping Designer Status 04/01/20 24 1 A Positive 104 Stan Willyar d OPEN Fetus Data First Name Last Name Admitted to NICU Weight (g) Sex Living Outcome Pediatric Complications Fetus ID Race Codes Race Delivery Type [id number] Problems Problem Notes 32wk growth us Problem Name Start Date End Date Resolution Snomed Code Not e History of chlamydial infection 136500589 chl neg Alpha thalassemia 04/16/2024 00094339 s ilent carrier; low risk Low lying placenta 408216633 r esolved Kb Calculation KB Calculation Method Initial Kb Date Initial Exam Date Initial Exam Provider Initial Ultrasound Date Last Menstrual Period Date Ultra Sound Weeks Gestation Conception by IVF Embryo Age at Transfer Date of Transfer 10/12/19 27 02/19/20 24 Sakina Cantrell 02/19/2024 12/22/2023 6 Eighteen To Twenty Week Kb Update Ultra Sound Date Fundal Height At Umbil Quickening Date Ultra Sound Latest Weeks Gestation Final Kb Confirmed By Final Kb Confirmed Date Final Kb Date Ultra Sound Latest Days Gestation 0 0 Pre-luz Flowsheet Flowsheet Date 04/01/2024 Frias Score Blood Edema Fundus Height Fundus Units Glucose Ketones Leukocytes Nitrite Labor Signs Protein Cervic Dilation Cervic Effacement Cervic Station neg none none trace Type Weight in lbs Pre/Post Dialysis Refused Weight 104.268084641352 BP Diastolic BP Location Tested BP Systolic [...] Type Weight in lbs Pre/Post Dialysis Refused 105.266143468282 BP Diastolic BP Location Tested BP Systolic [...] Type Weight in lbs Pre/Post Dialysis Refused 109.175972911567 BP Diastolic BP Location Tested BP Systolic [...] Type Weight in lbs Pre/Post Dialysis Refused 118.278517899515 BP Diastolic BP Location Tested BP Systolic [...] Type Weight in lbs Pre/Post Dialysis Refused 122.573089147630 BP Diastolic BP Location Tested BP Systolic [...]
--- OUTSIDE RECORDS SUMMARY | 2024-08-02 02:37 | XMS_ITS | Encounter Summary ---
Author Organization [facility] Address [address] [place] [address] Care Team Providers Care Supply Chain Generalist Name Role Phone Geo Goyal MD Primary Care Provider [phone] Reason for Visit * Reason Comments Weight Problem Stooling Issues Encounter Details Date Type Department Care Team (Latest Contact Info) Description 06/07/2011 1:45 PM CDT - 06/07/2011 11:59 PM CDT Hospital Encounter [facility] [place] [address] [place], [place] [id number] Discharge Disposition: Home or Self Care Social History Tobacco Use Types Packs/Day Years Used Date Smoking Tobacco: Never Assessed Sex and Gender Information Value Date Recorded Sex Assigned at Not on file Gender Identity Not on file Sexual Orientation Not on file documented as of this encounter Last Filed Vital Signs Vital Sign Reading Time Taken Comments Blood Pressure 82/52 06/07/2011 2:06 PM CDT Pulse - - Temperature - - Respiratory Rate - - Oxygen Saturation - - Inhaled Oxygen Concentration - - Weight 18.5 kg (40 lb 12.6 oz) 06/07/2011 2:06 P M CDT Height 125.2 cm (4' 1.29 ) 06/07/2011 2:06 PM CD T Body Mass Index 11.8 06/07/2011 2:06 PM CDT Body Mass Index Percentile 0.01% 06/07/2011 2:0 6 PM CDT Growth Chart: [facility] (Girls, 2- 20 Years) documented in this encounter Medications at Time [...] as of this encounter Progress Notes * Ирина Haynes RN,CPNP - 06/07/2011 3:44 PM CDT HISTORY OF PRESENT ILLNESS : Thank you for your consult on Mae Frances. I had the pleasure of seeing Mae in the Gastroenterology Clinic at [facility] on 06/07/2011. She comes in for evaluation of weight loss and constipation. She has been followed by Dr. Hernandez in the past for constipation and has been admitted for a fecal impaction requiring surgical removal of stool and a full thickness rectal suction biopsy in 2008. Her rectal suction biopsy was benign. Mae also has a history of migraine headaches and is followed by Dr. Cadena. Mom states that Mae was hospitalized 11/2010-12/2010 at [facility] for her agression. She was diagnosed with Bipolar, ADHD, ODD, and a learning disorder. She currently takes Depakote, Zoloft, and Clonidine. After returning home from her admission mom states that Mae lost 10 lbs and has never g ained the weight back. Mae will not eat well. She usually skips breakfast and will have a fewbites of lunch or dinner. She drinks tea, water, and juice. Mom states that she will not eat fruitsor vegetables. Denies vomiting. Mae has hard stools weekly without blood noted. Mae complains of abdominal pain 2-3 times per week. Mom refuses to give Miralax, stating that it doesn't work and gives her MOM (mom unsure of amount) PRN. Mom refuses to give Mae MOM daily stating that it gives her diarrhea. Denies any fever, rashes, joint pain, joint swelling, mouth ulcers, mouth sores, altered sensorium, lack or paucity of any limb movements, jaundice, hematemesis, hematochesia,or bleeding from any other site. NOTE: Mae saw Dr. Miller 11/07/2009 and had a normal free T4, normal chromosomal analysis (pattern 46, XX). PAST MEDICAL HISTORY: Past Medical History Diagnosis Date ??? HEADACHE started approximately 2 years ago ??? S/P Colonoscopy age 6y/o DIET: Regular MEDICATIONS: Current Outpatient Prescriptions Medication Sig Dispense Refill ??? cloNIDine (CATAPRES) 0.1 MG tablet Take 0.1 mg by mouth 4 times daily. ??? divalproex DR (DEPAKOTE) 125 MG tablet Take 1 Tab by mouth 2 times daily. 60 Tab 8 ??? sertraline (ZOLOFT) 50 MG tablet Take 50 mg by mouth daily. Take 1 1/2 tabs Daily ??? atomoxetine (STRATTERA) 40 MG capsule Take 40 mg by mouth every morning. ??? guanfacine (TENEX) 1 MG tablet Take 1 mg by mouth 3 times daily. ??? polyethylene glycol 3350 (MIRALAX) powder Take 8.5 g by mouth 2 times daily. ??? trazodone (DESYREL) 100 MG tablet Take 100 mg by mouth at bedtime. ALLERGIES: Allergies Allergen Reactions ??? Tegretol (Carbamazepine) Rash ??? Stimulant Laxative (Bisacodyl) Rash FAMILY/SOCIAL HISTORY: No history of IBD or liver disease. History Social History Narrative Lives with mother, father, and sister. PHYSICAL EXAMINATION: 0.24% of growth percentile based on tdtase-wiz-siv. BP 82/52 Wt 18.5 kg (40 lb 12.6 oz) BMI 11.80 kg/m2 HEENT: Normocephalic, atraumatic. Eyes SHANNA. Tympanic membranes clear. Nares patent. No mouth sores or ulcers. Trachea in midline. Chest: Equal air entry bilaterally. No adventitious sounds. Cardiovascular: Regular rate and rhythm. No murmur. Abdomen: Soft, nontender, nondistended. No prominent veins or scars. Bowel sounds present. No organomegaly. SCRAP DROP OPERATOR: No apparent focal deficits. Extremities: Warm, well perfused. Cap refill less than 2 seconds. IMPRESSION: 1. Weight Loss 2. Constipation 3. Non-Compliance RECOMMENDATIONS: 1. Discussed extensively with caregivers the probable etiology for Mae's symptoms as well as treatment options. 2. Discussed constipation at length with mother and the need to treat. MOM 5-10 ml every other day (mom refused to give MOM or Miralax daily. 3. CBC, CMP, amylase, lipase, CRP, total IgA, tissue transglutaminase antibody ordered today. 4. 3 day diet record forms given to mother. Clinical Dragline Mechanic appointment scheduled for 06/11 at 3:00 5. An endoscopic evaluation would be a consideration if symptoms persist. 6. I would like to see her back in 3 or 4 months, or earlier if any concerns. Thank you for letting me participate in the care of your patient. Please do not hesitate to call back for any questions or concerns. documented in this encounter Miscellaneous Notes * Miscellaneous Scans - Document, Scanned - 07/13/2011 6:17 PM CST HARGING MACHINE OPERATOR documented in this encounter Plan of Treatment Scheduled Orders Name Type Priority Associated Diagnoses Orde r Schedule AMYLASE BLOOD Lab Routine Weight loss Ordered: 06/07/2011 CBC W AUTO DIFFERENTIAL Lab Routine Weight loss Ordered: 06/07/2011 COMPREHENSIVE METABOLIC PANEL Lab Routine Weight loss Ordered: 06/07/2011 C-REACTIVE PROTEIN Lab Routine Weight loss Ordered: 06/07/2011 TISSUE TRANSGLUTAMINASE AB IGA Lab Routine Weight loss Ordered: 06/07/2011 IGA BLOOD Lab Routine Weight loss Ordered: 06/07/2011 LIPASE BLOOD Lab Routine Weight loss Ordered: 06/07/2011 documented as of this encounter Visit Diagnoses Diagnosis Weight loss Loss of weight Poor weight gain in child Failure to thrive Constipation Unspecified constipation documented in this encounter Care Teams Supply Chain Generalist Relationship Specialty Start Date End Date Geo Goyal MD [address] [place] [address] PCP - General 08/24/09 01/15/22 documented as of this encounter
--- OUTSIDE RECORDS SUMMARY | 2024-08-02 02:37 | XMS_ITS | Encounter Summary ---
Author Organization [facility] Address [address] [facility] [place] [address] Care Team Providers Care Kiln Transfer Operator Name Role Phone Geo Goyal MD Primary Care Provider [phone] Reason for Visit * Reason Onset Date Comments Update 06/12/2011 Encounter Details Date Type Department Care Team (Late st Contact Info) Description 06/12/2011 Telephone [facility] Pediatrics - [address] [place] [address] Ирина Haynes, COMPUTER OPERATOR-TODDLER LEAD TEACHER [address] [place] [address] Update Social History Tobacco Use Types Packs/Day Years Used Date Smoking Tobacco: Never Assessed Sex and Gender Information Value Date Recorded Sex Assigned at Not on file Gender Identity Not on file Sexual Orientation Not on file documented as of this encounter Miscellaneous Notes * Telephone Encounter - Ирина Haynes, RN,CPNP - 06/15/2011 12:18 PM PHARMACIST AIDE Spoke with Dr. Contreras who recommended admission to [facility] if admission would be in the next 1-[address] Feliciano will call me if Mae is not admitted in the next 1-[address] Feliciano is in touch with the PMD. MACIST AIDE * Telephone Encounter - Ирина Haynes RN,LEIGHNP - 06/14/2011 9:13 AM PHARMACIST AIDE Spoke with Dr. Feliciano at length today. Mae is listed for admission to [facility] when space is available. Had discussed possible EGD following nutrition appointment with Dr. Contreras. Would you recommend EGD at this time? I will call Dr. Feliciano back with your recommendations. Thank you. MACIST AIDE * Telephone Encounter - Zoe Black - 06/13/2011 1:09 PM CST Please call Dr Feliciano's cell at [phone]. MACIST AIDE * Telephone Encounter - Ирина Haynes RN,ZACHARY - 06/13/2011 8:50 AM PHARMACIST AIDE Left a message with Jacqui in the medical staff office, Dr. Feliciano is currently unavailable. MACIST AIDE * Telephone Encounter - Swapna Ibarra RN - 06/12/2011 1:29 PM PHARMACIST AIDE Spoke to ZACHARY Valdez, at [facility]. PMD called [facility] for referral. They wouldlike more information on FTT. They are trying to find out what the cause is. Would [facility] benefit Mae? Please call Dr. Corinne Feliciano at [phone] regarding this. MACIST AIDE documented in this encounter Plan of Treatment Not on file documented as of this encounter Visit Diagnoses Not on filedocumented in this encounter Care Teams Kiln Transfer Operator Relationship Specialty Start Date End Date Geo Goyal MD [address] [place] [address] PCP - General 08/24/09 01/15/22 documented as of this encounter
--- OUTSIDE RECORDS SUMMARY | 2024-08-02 02:37 | XMS_ITS | Encounter Summary ---
Author Organization [facility] Address [address] [place] [address] Care Team Providers Care Quill Stripper Name Role Phone Geo Goyal MD Primary Care Provider [phone] Encounter Details Date Type Department Care Team (Latest Contact Info) Description 09/29/2009 10:46 AM ANIMAL FEEDER - 09/29/2009 7:43 PM [facility] Hospital Encounter [facility] [address] [place] [address] Md Ajith [address] [place] [address] Domo Pete MD [address] [place] [phone] Felicia Clancy MD [facility] [place] [address] Ear Nose Throat Discharge Disposition: Cancer Center or [facility] Social History Tobacco Use Types Packs/Day Years Used Date Smoking Tobacco: Never Assessed Sex and Gender Information Value Date Recorded Sex Assigned at Not on file Gender Identity Not on file Sexual Orientation Not on file documented as of this encounter Consult Notes * Henry Lopez MD - 09/29/2009 12:00 AM [facility] Consultation DATE AND TIME OF CONSULTATION: 09/29/09 at 12:30 PM CONSULT REQUESTED BY: Emergency room. REASON FOR CONSULTATION: Left peritonsillar abscess. CHIEF COMPLAINT: Sore throat x 1 week. HISTORY OF PRESENT ILLNESS: This is a 8-year-old female who has a past medical history of behavioral disorders and has been an inpatient at [facility] since 09/26/09, whose mother reports has had a sore throat for the past week. The patient initially was seen by a tack cleaner who prescribed cold medicinefor the sore throat. The patient was then seen again on Saturday and given a throat culture, which grew positive for Strep. The patient was given intramuscular Rocephin and started on Keflex and has continued Keflex for the past 4 days. The patient developed a fever of 102.0 the night previous to presentation and the patient was examined at [facility] and found to have a left peritonsillar abscess andtransferred to [facility] Emergency Room for management. CBC in the [facility] Emergency Room shows a white count of 36,000 and mother reports that the patient has had difficulty eating and drinking over the past 4 days, as well as muffled voice and difficulty turning neck. PAST MEDICAL HISTORY: Oppositional defiant disorder and bipolar disorder. MEDICATIONS: Vyvanse, Desyrel, Risperdal, Keflex, ibuprofen, and MiraLax. ALLERGIES: No known drug allergies. The patient does develop headaches with Tylenol, per mother. FAMILY HISTORY: Noncontributory. SOCIAL HISTORY: The patient lives with mother. REVIEW OF SYSTEMS: Mother reports this is the patient's first episode of tonsillitis in any recent history. Her reviewof systems is otherwise negative. PHYSICAL EXAMINATION: Vital signs: Temperature 99.8, blood pressure 100/palpable, pulse 108, respiratory rate 24, breathing on room air. Weight is 18.5 kg. General appearance: In no acute distress, alert. Respiratory, cardiovascular, lymphatic, and skin systems were all within normal limits. Eyes were within normal limits. ENT examination shows bilateral tympanic membranes without infusion or injection. Bilateral nasal passages are patent. Oral cavity and oropharynx show left sided supratonsillar bulge with erythemaand uvula deviation from the left to the right. There are no tonsillar exudates. Examination of theneck shows tender lymphadenopathy bilaterally with lymphadenopathy greater in the left submandibular region than elsewhere. ASSESSMENT: This is a 8-year-old female with a left sided peritonsillar abscess who would do poorly with management in the emergency room, namely incision and drainage. RECOMMENDATIONS: 1. The patient will be taken to the operating room this afternoon as an add-on case with Dr. Clancy for incision and drainage of left peritonsillar abscess. 2. The patient will need postoperative antibiotics for the next 7 days. I have personally seen and evaluated this patient with the resident. I developed the above plan of care and discussed it along with the findings noted above with the family. I have revised the above dictation as needed and agree with the resident's assessment and plan. Dictated By: HENRY LOPEZ MD Dictated For: FELICIA CLANCY MD Electronically Signed 09/29/2009 15:25:48 ANIMAL FEEDER EDUARDO/karina JOB ID: [id number] documented in this encounter OR Notes * Operative - Felicia Clancy MD - 09/29/2009 12:00 AM [facility] Operative Report PREOPERATIVE DIAGNOSIS: Left peritonsillar abscess. POSTOPERATIVE DIAGNOSIS: Left peritonsillar and left retropharyngeal abscess. PROCEDURE PERFORMED: Incision and drainage of the left peritonsillar and retropharyngeal abscess. SURGEON: Felicia Clancy M.D. OPERATIONS SUPERVISOR 2ND SHIFT: Henry Lopez M.D. ANESTHESIA: General. INDICATION FOR PROCEDURE: Mae is a 8-year-old female with multiple behavioral problems. She has had over a week's course of throat pain, the last few days of which has been treated with Keflex and one shot of Rocephin without any improvement. She was examined and felt to have swelling of the posterior tonsillar wall and was sent over for evaluation where she appeared to have a peritonsillar abscess, but was not michelle ble to drainage. PROCEDURE IN DETAIL: The patient was brought to the OR and induced under general anesthesia. The appropriate size [place] gag was inserted. There was some fullness over the left peritonsillar area as well as the left retropharyngeal area. The right tonsil appeared fine. The uvula was bifid. The adenoids were small. Using needle aspiration the peritonsillar area was done without any result in pus, so a small peritonsillar incision was made with dissection of the peritonsillar area without much pus, only a pocket was entered with a small amount of debris. The left retropharyngeal area appeared full and this was carefully entered using blunt dissection with some immediate result of pus. This pus was sent for a erobic and anaerobic cultures. The area was thoroughly cleaned out, irrigated, and patient tolerated the procedure without complication. Plan to be sent home on Augmentin 600 mg b.i.d. for 10 days and followup with the tack cleaner. Dictated By: FELICIA CLANCY MD Electronically Signed 10/03/2009 13:43:25 ANIMAL FEEDER / JOB ID: [id number] AL FEEDER documented in this encounter Plan of Treatment Not on file documented as of this encounter Procedures Procedure Name Priority Date/Time Associated Diagnosis Comments CULTURE ANAEROBE Routine 09/29/2009 4:00 PM ANIMAL FEEDER CULTURE ABSCESS Routine 09/29/2009 4:00 PM ANIMAL FEEDER GLUCOSE STAT 09/29/2009 12:50 PM ANIMAL FEEDER LYTES (NA K CL CO2) BLOOD STAT 09/29/2009 12:50 PM ANIMAL FEEDER CREATININE BLOOD STAT 09/29/2009 12:5 0 PM ANIMAL FEEDER BUN STAT 09/29/2009 12:50 PM ANIMAL FEEDER documented in this encounter Results * CULTURE ANAEROBE (09/29/2009 4:00 PM ANIMAL FEEDER) Report [facility] Comment: Final - PROMPT RESP LEFT RETROPHARYNGEL ABSCESS GRAM STAIN Moderate WBC's Moderate RBC'S No organisms seen CULTURE PEPTOSTREPTOCOCCUS ANAEROBIUS ?Rare ? PREVOTELLA ??INTERMEDIA ?Rare ?Beta Lactamase Test, Positive ? SPECIMEN FROM ABSCESS / Unknown 09/29/2009 4:00 PM ANIMAL FEEDER Felicia Clancy MD LAB - MICROBIOLOGY O RDERABLES [facility] * CULTURE ABSCESS (09/29/2009 4:00 PM ANIMAL FEEDER) Report [facility] Comment: Final - PROMPT RESP LEFT RETROPHARYNGEAL ABSCESS GRAM STAIN Heavy RBC'S Moderate WBC's No organisms seen CULTURE ALPHA HEMOLYTIC STREPTOCOCCUS ?Moderate ?Two colony types ? NON HEMOLYTIC STREP ?Rare ? SPECIMEN FROM ABSCESS / Unknown 09/29/2009 4:00 PM ANIMAL FEEDER Felicia Clancy MD LAB - MICROBIOLOGY O RDHUGH [facility] * GLUCOSE (09/29/2009 12:50 PM ANIMAL FEEDER) Glucose 90 70 - 106 mg/dl [facility] Specimen Type/Condition [facility] BLOOD SPECIMEN / Unknown 09/29/2009 12:50 PM ANIMAL FEEDER Libra Somers DO LAB - CHEMISTRY ERIN AGUILAR Performing Organization Address [facility] [facility]/ZIP Co de Phone Number [facility] * (ABNORMAL) LYTES (NA K CL CO2) BLOOD (09/29/2009 12:50 PM ANIMAL FEEDER) Sodium 136(L) 137 - 145 mmol/L [facility] Potassium 4.2 3.5 - 5.1 mmol/L [facility] Chloride 97(L) 98 - 107 mmol/L [facility] CO2 28.6(H) 18 - 27 mmol/L [facility] Specimen Type/Condition [facility] BLOOD SPECIMEN / Unknown 09/29/2009 12:50 PM ANIMAL FEEDER Libra Somers DO LAB - CHEMISTRY ERIN AGUILAR Performing Organization Address [facility]/ZIP Co de Phone Number [facility] * CREATININE BLOOD (09/29/2009 12:50 PM ANIMAL FEEDER) Creatinine 0.38 0.03 - 0.59 mg/dl [facility] Specimen Type/Condition [facility] BLOOD SPECIMEN / Unknown 09/29/2009 12:50 PM ANIMAL FEEDER Libra Somers DO LAB - CHEMISTRY ERIN AGUILAR [facility] * BUN (09/29/2009 12:50 PM ANIMAL FEEDER) BUN 10.5 7 - 18 mg/dl [facility] Specimen Type/Condition [facility] BLOOD SPECIMEN / Unknown 09/29/2009 12:50 PM ANIMAL FEEDER Libra Somers DO LAB - CHEMISTRY ERIN AGUILAR Performing Organization Address City/State/[facility] Co de Phone Number [facility] documented in this encounter Visit Diagnoses Not on filedocumented in this encounter Care Teams Quill Stripper Relationship Specialty Start Date End Date Geo Goyal MD [address] [place] [address] PCP - General 08/24/09 01/15/22 documented as of this encounter
--- OUTSIDE RECORDS SUMMARY | 2024-08-02 02:37 | XMS_ITS | Encounter Summary ---
Author Organization [facility] Address [address] [place] [place] [address] Care Team Providers Care Molecular Physicist Name Role Phone Geo Goyal MD Primary Care Provider Reason for Visit * Reason Comments Headache Follow Up Encounter Details Date Type Department Care Team (Latest Contact Info) Description 07/10/2010 10:30 AM LABEL PRINTING MACHINIST - 07/10/2010 11:59 PM LABEL PRINTING MACHINIST Hospital Encounter [facility] Pediatrics - Neurology [facility] [place] [address] Discharge Disposition: Home or Self Care Social History Tobacco Use Types Packs/Day Years Used Date Smoking Tobacco: Never Assessed Sex and Gender Information Value Date Recorded Sex Assigned at Not on file Gender Identity Not on file Sexual Orientation Not on file documented as of this encounter Last Filed Vital Signs Vital Sign Reading Time Taken Comments Blood Pressure 92/48 07/10/2010 10:38 AM LABEL PRINTING MACHINIST Pulse - - Temperature - - Respiratory Rate - - Oxygen Saturation - - Inhaled Oxygen Concentration - - Weight 23.2 kg (51 lb 2.4 oz) 0 10:38 AM LABEL PRINTING MACHINIST Height 122.5 cm (4' 0.23 ) 07/10/2010 1 0:38 AM LABEL PRINTING MACHINIST Body Mass Index 15.46 07/10/2010 10:38 AM LABEL PRINTING MACHINIST Body Mass Index Percentile 44.19% 07/10 10:38 AM LABEL PRINTING MACHINIST Growth Chart: [facility] (Girls, 2- 20 Years) documented in this encounter Medications at Time of Discharge Medication Sig Dispensed Refills Start Date End Date atomoxetine (STRATTERA) 40 MG capsule Take 40 mg by mouth every morning. 11/18/[address] (DEPAKOTE) 125 MG tabletIndications:Migraine [...] of this encounter Progress Notes * Barry Heredia MD - 07/10/2010 10:59 AM CST Pt is a 7 1/2 yr old with a history of behavioral disorder and migraine headache without aura. She was begun on valproate 125mg bid back in spring and her headache freq has improved to about 2 per month. She continues to have behavioral issues of a very labile affect and was admitted to [facility] for 1 month related to this. Pt sees Dr Rivera who has her on multiple neuroleptic agents,including strattera for attention, Zoloft, geodon, and hs trazadone, as well as tenex for impulse control. No issues of vomiting or jaundice or nausea, out side of the migr events. Had one SORENSON about 4 days ago that was bitemp and assoc with photo-phonophobia and vomiting times 1. Pt on exam was impulsive and a bit intrusive in conversations but affect was stable and approp. Speech is fluent and non-pressured, with appropr content, though immature slightly. (fixated on gettingstickers). Cn's werre full without nystag, facies symm and palate nl. Minimal postural tremor but no rigidity or resting tremor and nl postural reflexes. Nl gait and unipedal stance. Impr ADHD and some bipolar features, with hx of migr without aura-improved on valpr. Rec; prn non-steroidals for breakthru SORENSON. Maintain the depakote. F/u summer. tjg L PRINTING MACHINIST documented in this encounter Miscellaneous Notes * Miscellaneous Scans - Document, Scanned - 09/19/2010 10:01 AM LABEL PRINTING MACHINIST documented in this encounter Plan of Treatment Not on file documented as of this encounter Visit Diagnoses Diagnosis Migraine, unspecified, without mention of intractable migraine without mention of status migrainosus ADHD (attention deficit hyperactivity disorder), combined type Attention deficit disorder with hyperactivity documented in this encounter Care Teams Molecular Physicist Relationship Specialty Start Date End Date Geo Goyal MD [address] [place] [address] PCP - General 08/24/09 01/15/22 documented as of this encounter
--- OUTSIDE RECORDS SUMMARY | 2024-08-02 02:37 | XMS_ITS | Encounter Summary ---
Author Organization [facility] Address [address] [facility] [place] [address] Care Team Providers Care Dry Transfer Man Name Role Phone Geo Goyal MD Primary Care Provider [phone] Encounter Details Date Type Department Care Team (Latest Contact Info) Description 01/30/2010 12:43 PM CDT - 01/30/2010 12:53 PM CDT Hospital Encounter [facility] Pediatrics - Neurology [address] [place] [phone] Jennifer Duran MD [address] [place] [id number] Neurology Discharge Disposition: Home or Self Care [...] on filedocumented in this encounter Care Teams Dry Transfer Man Relationship Specialty Start Date End Date Geo Goyal MD [address] [place] [id number] PCP - General 08/24/09 01/15/22 documented as of this encounter
--- OUTSIDE RECORDS SUMMARY | 2024-08-02 02:37 | XMS_ITS | Encounter Summary ---
Author Organization [facility] Address [address] [place] [address] Care Team Providers Care Universal Banker Name Role Phone Geo Goyal MD Primary Care Provider Reason for Visit * Reason Comments Headache Encounter Details Date Type Department Care Team (Latest Contact Info) Description 01/30/2010 12:54 PM CDT - 01/30/2010 11:59 PM CDT Hospital Encounter [facility] Pediatrics - Neurology [facility] [place] [address] Discharge Disposition: Home or Self Care Social History Tobacco Use Types Packs/Day Years Used Date Smoking Tobacco: Never Assessed Sex and Gender Information Value Date Recorded Sex Assigned at Not on file Gender Identity Not on file Sexual Orientation Not on file documented as of this encounter Last Filed Vital Signs Vital Sign Reading Time Taken Comments Blood Pressure 88/50 01/30/2010 12:57 PM CDT Pulse - - Temperature - - Respiratory Rate - - Oxygen Saturation - - Inhaled Oxygen Concentration - - Weight 19.4 kg (42 lb 11.2 oz) 01/31/20 10 12:57 PM CDT Height 119.8 cm (3' 11.17 ) 01/30/2010 12:57 PM CDT Body Mass Index 13.5 01/30/2010 12:57 PM CDT Body Mass Index Percentile 5.51% 01/30 12:57 PM CDT Growth Chart: [facility] (Girls, 2- 20 Years) documented in [...] Progress Notes * Barry Heredia MD - 01/30/2010 1:50 PM CDT History of Present Illness: 9 yo girl with h/o ADHD and sensory integrative disorder who presents for evaluation for chronic headaches. She describes her headaches as left frontotemporal 8/10 with associated dizziness, photophobia and phonophobia. She does not have nausea or vomiting. Her headachesare alleviated with Ibuprofen 400 mg prn. She takes one time doses of Ibuprofen 1-3 times a week. Her headaches worsen when given Tylenol. She has had headaches for the last 2 years. She has had increased frequency of headaches this past 6 months with almost daily headaches. She saw her psychiatrist who changed her Vyvanse to Strattera. After this med change her headaches decreased to 1-2 x a week. She has had difficulty maintaining weight on her ADHD meds. She has difficulty falling asleep. Review of Systems: headache, photophobia, phonophobia, dizziness, sleep difficulty, behavioral outbursts Past Medical History: ADHD, sensory integrative disorder, migraines, chronic constipation. Has been hospitalized several times for behavior. History: Full term baby. Mother had low amniotic fluid during . Had nuchal cord at . No respiratory distress or problems with actual delivery. [facility] and went home with mother. Developmental History: Walked unassisted at 10 months. Spoke in single words at 13 months. Spoke inshort sentences at 2 1/2 years. Toilet trained at 2 1/2 years. Social History: Lives with her parents, little sister and maternal grandmother. Has been held back from 1 st grade because of behavior. Is aggressive with other children. Family History: +migraines Medications: Strattera 10 mg in am and 25 mg in evening Trazadone 100 mg QHS Zoloft 50 mg QDay Tenex 1 mg TID Miralax 1/2 cap BID Allergies: Tegretol - rash Vital Signs: BP 88/50 Wt 19.369 kg (42 lb 11.2 oz) General: well developed, thin girl, had tantrum during exam: seems immature for age in her behaviors and speech but will cooperate. tjg CV: RRR Resp: CTAB Abdomen: S, NT, BS+ Extr: No edema, +2 pulses Neurological Exam: MS: awake, alert, appropriate, uncooperative at times Cranial Nerves: II: Visual dee intact, Fundoscopic exam normal III:PERRLA III,IV,: EOMI V: Facial sensation intact and symmetric VII: Facial expressions symmetric VIII: Hearing intact to finger rub bilaterally IX: Palate elevates symmetrically X: Uvula midline XI: Shoulder shrug strong bilaterally XII: Tongue protrudes midline Motor: Abnormal Movements: none Bulk: normal Tone: normal Reflexes: 2+ throughout, plantar reflex downgoing Strength: 5/5 in all extremities Sensory: Intact to light touch, temperature and vibration Cerebellar: Normal FNF, ELVIA's, steady in Romberg stance Gait: Normal toe/heel/tandem walk Assessment: 9 year old girl with 1. Migraines 2. ADHD; some oppositional features as well tjg 3. Sensory integrative disorder 4. Chronic constipation Plan: 1. Migraines - Start Depakote 125 mg QDay for 1 week, then increase to maintenance of 125 mg BID. May need to increase to TID in future. This may hayley with mood stabilization and improve appetite inthis very thin girl. tjg 2. ADHD - Continue Tenex, Zoloft and Trazadone. 3. Sensory integrative disorder - Per psychiatry. 4. Chronic constipation - Continue Miralax. Follow up: 4 months. Patient examined and plan discussed with Dr. Heredia. documented in this encounter Miscellaneous Notes * Miscellaneous Scans - Document, Scanned - 03/10/2010 8:57 PM CDT * Miscellaneous Scans - Document, Scanned - 01/30/2010 12:00 AM CDT * Miscellaneous Scans - Document, Scanned - 01/30/2010 12:00 AM CDT * Miscellaneous Scans - Document, Scanned - 01/30/2010 12:00 AM CDT documented in this encounter Plan of Treatment Not on file documented as of this encounter Visit Diagnoses Diagnosis Migraine, unspecified, without mention of intractable migraine without mention of status migrainosus documented in this encounter Care Teams Universal Banker Relationship Specialty Start Date End Date Geo Goyal MD [address] [place] [address] PCP - General 08/24/09 01/15/22 documented as of this encounter
--- OUTSIDE RECORDS SUMMARY | 2024-08-02 02:37 | XMS_ITS | Data Portability ---
Author Organization [facility] [place] Address [address] [place] [address] [address] Assessment Encounter Date Assessment Date Assessment LastModified by Organization Details LastModified Time 05/27/2024 05/27/2024 Patient is _20__weeks . Discussed plan. Not available 05/27/2024 17:49:02 06/24/2024 06/24/2024 Patient is _24__weeks . Discussed plan. Not available 06/24/2024 12:42:13 07/31/2024 07/31/2024 Patient is __29_weeks . Discussed plan. Not available 07/31/2024 11:57:31 Plan of Treatment Reminders Order Date Submit [...] None recorde d. Imaging US, obstetr ic, 2nd or 3rd trimest er 2023 024 [email or web address] [place], [address], [place], [address], 05/26/2024 18:16:59 US, obstetr ic, transva ginal 2023 024 [email or web address] [place], [address], [place], [address], 06/24/2024 21:16:39 US, obstetr ic, follow- up 2023 024 [email or web address] [place], [address], [place], [address], 06/24/2024 21:16:39 Medication Orders None recorde d. Patient TargetsNo targets recorded. Patient InstructionsNo instructions recorded. Reason for Referral None Reported. Results Created Date Observation Date Name Description Value Unit Range Abnormal Flag Note LastModifiedBy Organization Detail LastModifiedTime 05/26/20 24 05/26/2024 US, obste tric, 2nd or 3rd trime ster No observ ation record ed. [email or web address] [address], [place], [address], 05/27/2024 18:34:24 05/26/20 24 05/26/2024 US, obste tric, 2nd or 3rd trime ster No observ ation record ed. [facility] [address], [place], [address], 05/26/2024 18:10:56 06/24/2006/24/2024 US, obste tric, trans vagin al No observ ation record ed. [email or web address] [place] [address] [facility] [address], [place], [address], 06/24/2024 12:45:58 06/24/20 24 06/24/2024 , obste tric, follo w-up No observ ation record ed. [email or web address] [place] [address], [place], [address], 06/24/2024 12:46:08 06/24/20 24 06/24/2024 US, obste tric, follo w-up No observ ation record ed. [email or web address] [address], [place], [address], 06/25/2024 09:19:38 Result Notes None recorded. Problems Name Problem SNOMED Code Status Onset Date Resolution Date Notes Provider Name and Address Organization Details Recorded Time 98340630 Active 2023 Corine Novak null, [facility] 4 18:26:41 History of chlamydia l infection 697701244 [facility] neg [facility], [facility] 4 15:43:29 Alpha thalassem ia 10613408 Active 2023 silent carrier; low risk [facility], [facility] 4 17:47:43 Low lying placenta 991606258 Active resolved Sakina Cantrell CNM [address], [place], [address], [facility] 4 12:41:38 Mixed anxiety and depressiv e disorder 074934281 Active 2023 [facility], [facility] 4 12:29:58 Problem Notes None recorded. Procedures Surgical History Date Name Laterality Status Provider Name and Address Organization Details Recorded Time 02/19/20 24 Date of Last Pap Smear completed Corine Novak [facility] 02/19/2024 15:34:35 12/26/19 23 Nexplanon Removal completed [facility] [address], [place], [address], [facility] 12/25/2022 15:19:15 09/07/19 23 Control Implant Insertion completed Jacey Chavez [facility] [address], [place], [address], [facility] 09/07/2022 14:46:07 08/05/19 11 Tonsillectomy completed Corine Novak [facility] 10/17/2023 12:48:17 Imaging Results Imaging Date Name Status LastModified by Organization Details LastModified Time 05/26/2024 US, obstetric, 2nd or 3rd trimester completed [email or web address] [address], [place], [address], 05/27/2024 18:34:24 05/26/2024 US, obstetric, 2nd or 3rd trimester [facility] [address], [place], [address], 05/26/2024 18:10:56 06/24/2024 US, obstetric, transvaginal completed [place] [address], [place], [address], 06/24/2024 12:45:58 06/24/2024 US, obstetric, follow-up completed [place] [address], [place], [address], 06/24/2024 12:46:08 06/24/2024 US, obstetric, follow-up completed [address], [place], [address], 06/25/2024 09:19:38 Procedure Notes None recorded. Medical Equipment None Reported. Allergies Allergen ID Allergen Name Allergen Category Reaction Reaction Severity Criticality Documentation Date Start Date Code Code System Note Provider Name and Address Organization Details Recorded Time 43372 [facility] n Not available Not available Not available 04/01/20242001 RxNorm Corine Novak [facility] 18:25:07 Medications Name Sig Start Date [...] No t Available ibuprofen 600 mg tablet 04/19 /2023 completed Not Available Not Available Not Available [...] and Address Organization Details Last Updated DateTime 05/27/2024 162.56 cm 18.7 kg/m2 94423.56 833 g 107 mm[Hg] 69 mm[Hg] Corine Novak [facility] 17:28:44 Date Recorded Body height Body mass index (BMI) Body weight Systolic blood pressure Diastolic blood pressure Provider Name and Address Organization Details Last Updated DateTime 06/24/2024 162.56 cm 20.3 kg/m2 13110.89 966 g 107 mm[Hg] 73 mm[Hg] Corinecharles Novak [facility] 4 12:28:52 Date Recorded Body weight Body mass index (BMI) Body height Systolic blood pressure Diastolic blood pressure Provider Name and Address Organization Details Last Updated DateTime 07/31/2024 58970.26 914 g 20.9 kg/m2 162.56 cm 111 mm[Hg] 58 mm[Hg] [facility] 11:40:55 Social History Question Answer Notes LastModified by Organizat ion Details LastModified Time Tobacco Smoking Status Never Smoker Sharon Hickeydiana vargas, [facility] 05/01/2023 15:09:00 What Is Your Level Of Alcohol Consumption? None Information not available 03/15/2021 If You Are , What Was Your Level Of Alcohol Consumption Prior To ? Occasional [email or web address] Information not available 02/19/2024 Are You Blind Or Do You Have Difficulty Seeing? No Information not available 03/15/2021 What Is Your Level Of Caffeine Consumption? None Information not available 03/15/2021 In The 14 Days Before Symptom Onset, Have You Had Close Contact With A Laboratory-[facility] COVID-19 While That Case Was Ill? No [email or web address] Information not available 07/14/2021 In The 14 Days Before Symptom Onset, Have You Had Close Contact With A Person Who Is Under Investigation For COVID-19 While That Person Was Ill? No [email or web address] Information not available 07/14/2021 Have You Been To An Area Known To Be High Risk For COVID-19? No [email or web address] Information not available 07/14/2021 Are You Deaf Or Do You Have Serious Difficulty Hearing? No Information not available 03/15/2021 What Type Of Diet Are You Following? REGULAR Information not available 03/15/2021 Do You Or Have You Ever Used E-cigarettes Or Vape? Current User Of Electronic Cigarettes [email or web address] Information not available 02/19/2024 Do You Use Your Seat Belt Or Car Seat Routinely? Yes Information not available 03/15/2021 Are You Sexually Active? Yes [email or web address] Information not available 05/01/2023 Do You Have Smoke And Carbon Monoxide Detectors In Your Home? Yes Information not available 03/15/2021 Do You Feel Stressed (tense, Restless, Nervous, Or Anxious, Or Unable To Sleep At Night)? [id number] Information not available 03/15/2021 Do You Use Any Illicit Or Recreational Drugs? Yes Marijuana [email or web address] Information not available 02/19/2024 Do You Use Sunscreen Routinely? Yes Information not available 03/15/2021 Has Tobacco Cessation Counseling Been Provided? No Information not available 05/01/2023 Do You Or Have You Ever Used Any Other Forms Of Tobacco Or Nicotine? Yes [email or web address] Information not available 02/19/2024 Sex: Unknown Functional Status Question Answer Note LastModified by Organizat ion Details LastModified Time Do you have difficulty walking or climbing stairs? No [email or web address] Information not available 05/01/2023 Are you able to walk? [email or web address] Information not available 03/15/2021 Are you able to care for yourself? Yes [email or web address] Information not available 05/01/2023 Do you have difficulty dressing or bathing? No [email or web address] Information not available 05/01/2023 What is your exercise level? None Information not available 03/15/2021 Mental Status None recorded. Family History Relationship Description Onset Age of this Age Resolved Age Notes LastModified by Organization Details LastModified Time Mother Cyst of ovary Not available 2020 11:15:47 Medical History Condition Response Allergies (Food, seasonal, environmental ) N Other N Drug/Latex Allergies/Reactions Y Breast Cancer N Blood Transfusion N Lung Disease N Dermatologic Disorders N Defects or Inherited Disease N Breast [...] Diagnosis/Indication Diagnosis SNOMED-CT Code Diagnosis ICD10 Code 53338 Jacey Chavez [facility] [address] [address] 03/15/2021 10:56:15 03/15/2021 11:58:21 Cystic acne 99055310 L70.0 N92.0 Gynecologi c examination 04755581 Z01.419 35453 [facility] [address] [address] 07/14/2021 10:04:12 07/14/2021 11:55:46 Acne 17958246 L70.9 Contracept ion care management 192134051 Z30.9 [id number] Jacey Chavez [facility] [address],[place] [address] 08/30/2021 09:26:58 08/30/2021 13:38:10 Vaginitis 12309463 N76.0 [id number] [facility] [address] [address] 03/20/2022 11:08:37 03/20/2022 12:30:57 Irregular periods 18537795 N92.6 Venereal d isease screening 777897844 Z11.3 Sexually t ransmitted infectious disease 1152963 A64 Vaginitis 59969157 N76.0 [id number] [facility] [address],[place] [address] 04/11/2022 10:04:33 04/11/2022 11:47:18 Lesion of vulva 331021547 N90.89 Contracept ion care management 761074038 Z30.9 Venereal d isease screening 005045859 Z11.3 [id number] Jacey Chavez [facility] [address],[place] [address] 09/06/2022 16:53:35 09/06/2022 17:13:39 Contraception care management 661064409 Z30.9 [id number] Jacey Chavez [facility] [address] [address] 09/07/2022 14:11:06 09/07/2022 15:29:09 Insertion of subcutaneous contraceptive 410364443 Z30.9 [id number] Jacey Chavez [facility] [address],[place] [address] 11/21/2022 15:04:09 11/21/2022 17:23:09 Venereal disease screening 149291463 Z11.3 Abnormal u terine bleeding 5252906185 9100 N93.9 Sexually t ransmitted infectious disease 7739482 A64 [id number] Jacey Cahvez [facility] [address],[place] [address] 12/25/2022 14:42:59 12/25/2022 15:32:53 Venereal disease screening 020926243 Z11.3 Removal of subcutaneous contraceptive 857163421 Z30.46 [id number] Jacey Chavez [facility] [address] [address] 04/24/2023 15:42:02 04/25/2023 12:38:44 Easy bruising 075180994 R58 Cystic acne 88008857 L70 .0 N92.0 [id number] Jacey Chavez [facility] [address] [address] 05/01/2023 15:08:53 05/02/2023 16:57:16 Cystic acne 24927040 L70.0 N92.0 [id number] Jacey Chavez [facility] [address],[place] [address] 06/19/2023 09:20:29 06/19/2023 09:55:28 Furuncle of vulva 063726245 N76.4 Reproducti ve care management 861605216 Z31.9 [id number] Jones Koenig MD [place] [address] [address] 10/17/2023 12:37:37 10/17/2023 13:41:58 Abnormal uterine bleeding 2965059257 9100 N93.9 Disorder o f menstruation 588005942 N92.6 [id number] Qi Garvin [place] [address] [address] 10/28/2023 14:29:56 10/28/2023 15:30:52 Abnormal uterine bleeding 0493592239 9100 N93.9 [id number] Jones Koenig MD [place] [address],[place] [address] 10/28/2023 15:18:58 10/28/2023 16:39:54 Abnormal uterine bleeding 9858532622 9100 N93.9 [id number] [facility] [address],[place] [address] 02/19/2024 14:52:45 02/19/2024 15:21:14 Uterine size for dates discrepancy 645680216 O26.841 Z3A.01 [id number] [facility] [address] [address] 02/19/2024 14:52:59 02/19/2024 16:08:22 Amenorrhea 29514782 N91.2 Gynecologi c examination 91438397 Z01.419 Nausea and vomiting 1693 1999 R11.2 [id number] [facility] [address],[place] [address] 04/01/2024 17:27:04 04/02/2024 07:54:22 screening 224339570 Z36.82 Z3A.12 [id number] [facility] [address] [address] 04/01/2024 17:27:30 04/02/2024 17:31:29 Gestation period, 12 weeks 48494412 Z3A.12 [id number] [facility] [address],[place] [address] 04/29/2024 16:22:12 04/29/2024 16:50:41 Gestation period, 16 weeks 72287920 Z3A.16 Anxiety 07108313 F41.9 [id number] [facility] [address],[place] [address] 05/26/2024 14:35:17 05/26/2024 17:52:03 screening for malformation 399358599 Z36.3 Z3A.20 [id number] [facility] [address] [address] 05/27/2024 17:14:49 05/28/2024 10:29:26 Gestation period, 20 weeks 76741313 Z3A.20 Anxiety 74604789 F41.9 [id number] [facility] [address] [address] 06/24/2024 11:40:27 06/24/2024 12:37:10 Low lying placenta 339529886 O44.42 Z3A.24 [id number] Sakina Cantrell [facility] [address] [address] 06/24/2024 11:41:44 06/24/2024 12:43:47 Gestation period, 24 weeks 418833322 Z3A.24 [id number] Sakina Cantrell [facility] [address] [address] 07/31/2024 11:09:29 07/31/2024 11:59:32 Gestation period, 29 weeks 01092456 Z3A.29 Health Concerns Section Related Observation LastModified by Organization Detai ls LastModified Time None Recorded Concern Status LastModified by Organization Details LastModified Time None Recorded Advance Directives Directive None Recorded Payers Encounter Date Sequence Insurance Name Policy Number Policy Shine Covered Member ID Shine Member ID Guarantor Name 05/26/2024 2 [facility] ON OR AFTER 02/02/21 (MEDICAID REPLACEMENT - HMO) Mae Frances [id number] Mae Frances 05/27/2024 2 [facility] ON OR AFTER 02/02/21 (MEDICAID REPLACEMENT - HMO) Mae Lopezre [id number] Mae Allgire 06/24/2024 2 [facility] ON OR AFTER 02/02/21 (MEDICAID REPLACEMENT - HMO) Mae Frances [id number] Mae Allgire 06/24/2024 2 [facility] ON OR AFTER 02/02/21 (MEDICAID REPLACEMENT - HMO) Mae Frances [id number] Mae Allgire 07/31/2024 2 [facility] ON OR AFTER 02/02/21 (MEDICAID REPLACEMENT - HMO) Mae Frances [id number] Mae Frances OBGyn Episode Ob Episode Information Episode Created Date Number of Fetuses Patient Bloodtype Patient rh Status Prepregnancy Weight lbs Domestic Partner Domestic Partner Phone Father Name Clinical Support Nurse Status 04/01/20 24 1 A Positive 104 Stan Willjoer d OPEN Fetus Data First Name Last Name Admitted to NICU Weight (g) Sex Living Outcome Pediatric Complications Fetus ID Race Codes Race Delivery Type [id number] Problems Problem Notes 32wk growth us Problem Name Start Date End Date Resolution Snomed Code Not e History of chlamydial infection 659045034 chl neg Alpha thalassemia 04/16/2024 66438910 s ilent carrier; low risk Low lying placenta 621529253 r esolved Kb Calculation KB Calculation Method Initial Kb Date Initial Exam Date Initial Exam Provider Initial Ultrasound Date Last Menstrual Period Date Ultra Sound Weeks Gestation Conception by IVF Embryo Age at Transfer Date of Transfer 10/12/1902/19/20 26 Sakina Smithgle 02/19/2024 12/22/2023 8 Eighteen To Twenty Week [...] Weight in lbs Pre/Post Dialysis Refused Weight 104.565052073965 BP Diastolic BP Location Tested BP Systolic [...] Type Weight in lbs Pre/Post Dialysis Refused 105.958322459834 BP Diastolic BP Location Tested BP Systolic [...] Type Weight in lbs Pre/Post Dialysis Refused 109.275448830232 BP Diastolic BP Location Tested BP Systolic [...] Type Weight in lbs Pre/Post Dialysis Refused 118.822855494818 BP Diastolic BP Location Tested BP Systolic [...] Type Weight in lbs Pre/Post Dialysis Refused 122.227608967112 BP Diastolic BP Location Tested BP Systolic [...]
--- OUTSIDE RECORDS SUMMARY | 2024-08-02 02:37 | XMS_ITS | Encounter Summary ---
Author Organization [facility] Address [address] [place] [address] Care Team Providers Care Php Mysql Developer Name Role Phone Geo Goyal MD Primary Care Provider [phone] Encounter Details Date Type Department Care Team (Latest Contact Info) Description 06/11/2011 2:30 PM SANITATION WORKER - 06/11/2011 2:47 PM SANITATION WORKER Hospital Encounter [facility] - Nutrition Services [address] [place] [id number] Discharge Disposition: Home or Self Care Social [...] - Inhaled Oxygen Concentration - - Weight 18.6 kg (41 lb 1.6 oz) 06/11/2011 2:00 PM SANITATION WORKER Height 126.2 cm (4' 1.69 ) 06/11/2011 2:00 PM CS T Body Mass Index 11.71 06/11/2011 2:00 PM SANITATION WORKER Body Mass Index Percentile 0.00% 06/11/2011 2:0 0 PM SANITATION WORKER Growth Chart: CDC (Girls, 2- 20 Years) documented in this encounter Discharge Instructions * Discharge Instructions* Dixon Mayorga RD/LD - 06/11/2011 3:22 PM SANITATION WORKER Feeding Team # [phone] Feeding Recommendations: - Switch to whole milk - Provide set meal times and don't focus on Mae's eating for 1 week - Provide medicine on table for 3 days and see if she will take it on her own. Call feeding team for follow up appointment TATION WORKER documented in this encounter Medications at Time [...] as of this encounter Progress Notes * Dixon Mayorga RD/LD - 06/11/2011 2:54 PM CST Initial Nutrition Assessment Mae aRmos a 10 y.o. 8 m.o. female seen regarding weight loss and behavioral feeding problems Past Medical History Diagnosis Date ??? HEADACHE started approximately 2 years ago ??? S/P Colonoscopy age 6y/o Assessment: Mae is diagnosed with Bipolar, ADHD, ODD, and a learning disorder. She also suffers from chronic constipation which she has been instructed to take miralax for relief but has low compliance with this medicine. Food/nutrition related history: Mae appears to be very thin and malnourished. Mom reports that she lost 10 lbs during a psychiatric hospitalization back in December 2009 and has never been able to gain the weight back. Feeding times and medications are a constant struggle with Mae and she has to be constantly reminded to eat her food. Mom and dad appear to be very authoritative in their parenting which was exhibited during today's encounter with Mae's negative behavior. Mom has tried pediasure and ensure supplements in the past but they were not well received by Mae. She also has tried to provide fattier foods for Mae to help increase calories which also has not worked. Mom reports that Mae does not like to take her MOM and therefore only has a BM every 3-4 days. A high fiber diet is notfollowed at home to help with this because Mae reportedly does not like fruits, vegetables, or whole wheat products. Fiber supplements have been tried in the past but reportedly did not help. Mae's mother and father appeared very frustrated at today's appointment. They expected to be admitted as an inpatient today into the hospital for extensive testing regarding laboratory tests and an endoscope to examine any causes to Mae's inability to gain weight. Mom and dad relate that they think Janiyas eating habits might be closely tied to her chronic constipation and she does not want to eat because she feels full and can't get relief from that feeling. They were not very receptive to recommendations made and may need further intervention. Asked Mae a few questions regarding food. She stated that her favorite foods are chicken nuggets and chips. She says she likes food and likes to eat. She verbalized that food helps her gain weight and she needs it to grow. She was very irritable during the session and yelled out multiple times at her parents to stop looking at her and yelling at her. Usual 24 Hour Intake Breakfast: [place] toast and chocolate milk @ school Lunch: 5 chicken nuggets butter bread, chocolate milk and fruit juice @school Snack: candy or chips tea Dinner: Meat vegetable and starch is provided by mom but Mae rarely eats dinner. Snack: n/a Anthropometrics: Weight: 18.643 kg (41 lb 1.6 oz) 0.29% of growth percentile based on [id number]-jrp. Height: 126.2 cm (4' 1.69 ) 19.50% of growth percentile based on [id number]-tvv-xzq. Body mass index is 11.71 kg/(m^2). 0.00% of growth percentile based on BMI-for-age. Labs/Tests/Procedures No recent labs Medications: Current Outpatient Prescriptions Medication ??? cloNIDine (CATAPRES) 0.1 MG tablet ??? divalproex DR (DEPAKOTE) 125 MG tablet ??? sertraline (ZOLOFT) 50 MG tablet ??? polyethylene glycol 3350 (MIRALAX) powder Estimated Needs: KCAL: 2250 kcal/day Protein (g): 1.1 g pro/kg Nutrition Care Process Nutrition Diagnostic Statement: (NC-3.1) Underweight related to behavioral issues and decreasd appetite related to possible medication interactions as evidenced by BMI-for-age <3rd percentile Nutrition Interventions: Meals and snacks: Mom was instructed to provide set meal and snack times (3 meals and 1 afternoon snack, and 1 evening snack) and not comment on Mae's food intake to see if less stress during meal times can prompt Mae to eat more on her own. This was discussed to try for 1 week. The same techniques was recommended to use for Mae's MOM which mom will present to her everyday for 3days and see if she will take it without forcing her to do so. Coordination of Care: Provided mom with the number to Feeding Team for more comprehensive treatment. Initial/Brief Nutrition Education: Discussed ways to increase calories by adding fats to appropriate foods and switching to whole milk. Also discussed the importance of providing more high fiber foods to help with constipation issues. Nutrition Goal #1: Total intake will meet estimated nutrient needs. Nutrition Goal #2: Weight will increase at a rate of 10-20 grams per day. Dixon Mayorga RD/MANUELA TATION WORKER documented in this encounter Miscellaneous Notes * Miscellaneous Scans - Document, Scanned - 07/15/2011 8:20 PM CST TATION WORKER documented in this encounter Plan of Treatment Not on file documented as of this encounter Visit Diagnoses Diagnosis Constipation Unspecified constipation documented in this encounter Care Teams Php Mysql Developer Relationship Specialty Start Date End Date Geo Goyal MD [address] [place] [address] PCP - General 08/24/09 01/15/22 documented as of this encounter
--- OUTSIDE RECORDS SUMMARY | 2024-08-02 02:38 | XMS_ITS | Encounter Summary ---
Author Organization [facility] Address [address] Attn: Epic Prelude ADT DHRUV HERNANDEZ [address] Care Team Providers Care Insurance Administrative Assistant Name Role Phone Unavailable Primary Care Provider Unavailabl e Encounter Details Date Type Department Care Team (Latest Contact Info) Description 02/08/2023 Travel Social History Tobacco Use Types Packs/Day Years Used Date Smoking Tobacco: Never Alcohol Use Standard Drinks/Week Comments Never 0 (1 standard drink = 0.6 oz pur e alcohol) Feeling Safe Answer Date Recorded Are you in a relationship wi th someone who hurts you emotionally and/or physically? No 02/08/2023 Sex and Gender Information Value Date Recorded Sex Assigned at Not on file Gender Identity Not on file Sexual Orientation Not on file COVID-19 Exposure Response Date Recorded In the last 10 days, have yo u been in contact with someone who was confirmed or suspected to have Coronavirus/COVID-19? No / Unsure 02/08/2023 5:19 PM CDT documented as of this encounter Plan of Treatment Not on file documented as of this encounter Visit Diagnoses Not on filedocumented in this encounter
--- OUTSIDE RECORDS SUMMARY | 2024-08-02 02:38 | XMS_ITS | Continuity of Care Document ---
Author Organization [facility] [place] Address [address] [place] [address] Assessment No assessment recorded. Plan of Treatment [...] 2nd or 3rd trimest er 2023 024 [place], [address], [address], [place], [address], 05/26/2024 18:16:59 Medication Orders None recorde d. Patient TargetsNo targets recorded. Patient InstructionsNo instructions recorded. Reason for Referral None Reported. Results Created Date Observation Date Name Description Value Unit Range Abnormal Flag Note LastModifiedBy Organization Detail LastModifiedTime 04/01/20 24 04/02/2024 US, obste tric, nucha l trans lucen cy No observ ation record ed. [email or web address] [place] [address], [place], [address], 04/02/2024 10:04:48 04/01/20 24 04/01/2024 US, obste tric, follo w-up No observ ation record ed. [email or web address] [facility] [address], [place], [address], 04/02/2024 08:29:18 05/26/20 24 05/26/2024 US, obste tric, 2nd or 3rd trime ster No observ ation record ed. [email or web address] [address] [address], [place], [address], 05/27/2024 18:34:24 05/26/20 24 05/26/2024 US, obste tric, 2nd or 3rd trime ster No observ ation record ed. [facility] [address], [place], [address], 05/26/2024 18:10:56 06/24/20 24 06/24/2024 US, obste tric, trans vagin al No observ ation record ed. [address], [place], [address], 06/24/2024 12:45:58 06/24/20 24 06/24/2024 US, obste tric, follo w-up No observ ation record ed. [address], [place], [address], 06/24/2024 12:46:08 06/24/20 24 06/24/2024 US, obste tric, follo w-up No observ ation record ed. [address], [place], [address], 06/25/2024 09:19:38 Result Notes None recorded. Problems Name Problem SNOMED Code Status Onset Date Resolution Date Notes Provider Name and Address Organization Details Recorded Time 84068772 Active 2023 Corine vargas, [facility] 4 18:26:41 History of chlamydia l infection 023959176 Active chl neg John vargas [facility] 15:43:29 Alpha thalassem ia 26227087 Active 2023 silent carrier; low risk John Marquez null, [facility] 17:47:43 Low lying placenta 379013026 Active resolved Sakina Cantrell CNM [address], [place], [address], [facility] 12:41:38 Mixed anxiety and depressiv e disorder 885300684 Active 2023 Corine Novak null, [facility] 12:29:58 Problem Notes None recorded. Procedures Surgical History Date Name Laterality Status Provider Name and Address Organization Details Recorded Time 02/19/20 24 Date of Last Pap Smear completed Corine Novak [facility] 02/19/2024 15:34:35 12/26/19 23 Nexplanon Removal completed Jacey Chavez [facility] [address], [place], [address], [facility] 12/25/2022 15:19:15 09/07/19 23 Control Implant Insertion completed Jacey Chavez [facility] [address], [place], [address], [facility] 09/07/2022 14:46:07 08/05/19 11 Tonsillectomy completed Corine Novak [facility] 10/17/2023 12:48:17 Imaging Results Imaging Date Name Status LastModified by Organiz ation Details LastModified Time 05/26/2024 US, obstetric, 2nd or 3rd trimester completed [address], [place], [address], 05/26/2024 18:10:56 Procedure Notes None recorded. Medical Equipment None Reported. Allergies Allergen ID Allergen Name Allergen Category Reaction Reaction Severity Criticality Documentation Date Start Date Code Code System Note Provider Name and Address Organization Details Recorded Time 58032 carbamaze pine medicatio n Not available Not available Not available 04/01/20242001 RxNorm Corine Novak [facility] 4 18:25:07 Medications Name Sig Start Date Stop [...] Not Available Not Available Not Available Vitals None Recorded Social History Question Answer Notes LastModified by Organizat ion Details LastModified Time Tobacco Smoking Status Never Smoker Sharon Eldridge [facility], [facility] 05/01/2023 15:09:00 What Is Your Level Of Alcohol Consumption? None Information not available 03/15/2021 If You Are , What Was Your Level Of Alcohol Consumption Prior To ? Occasional Information not available 02/19/2024 Are You Blind Or Do You Have Difficulty Seeing? No Information not available 03/15/2021 What Is Your Level Of Caffeine Consumption? None Information not available 03/15/2021 In The 14 Days Before Symptom Onset, Have You Had Close Contact With A Laboratory-confir med COVID-19 While That Case Was Ill? No Information not available 07/14/2021 In The 14 Days Before Symptom Onset, Have You Had Close Contact With A Person Who Is Under Investigation For COVID-19 While That Person Was Ill? No [email or web address] Information not available 07/14/2021 Have You Been To An Area Known To Be High Risk For COVID-19? No [email or web address] Information not available 07/14/2021 Are You Deaf Or Do You Have Serious Difficulty Hearing? No Information not available 03/15/2021 What Type Of Diet Are You Following? REGULAR Information not available 03/15/2021 Do You Or Have You Ever Used E-cigarettes Or Vape? Current User Of Electronic Cigarettes [email or web address] Information not available 02/19/2024 Do You Use Your Seat Belt Or Car Seat Routinely? Yes Information not available 03/15/2021 Are You Sexually Active? Yes [email or web address] Information not available 05/01/2023 Do You Have Smoke And Carbon Monoxide Detectors In Your Home? Yes Information not available 03/15/2021 Do You Feel Stressed (tense, Restless, Nervous, Or Anxious, Or Unable To Sleep At Night)? [id number] Information not available 03/15/2021 Do You Use Any Illicit Or Recreational Drugs? Yes Marijuana [email or web address] Information not available 02/19/2024 Do You Use Sunscreen Routinely? Yes Information not available 03/15/2021 Has Tobacco Cessation Counseling Been Provided? No [email or web address] Information not available 05/01/2023 Do You Or Have You Ever Used Any Other Forms Of Tobacco Or Nicotine? Yes [email or web address] Information not available 02/19/2024 Sex: Unknown Functional Status Question Answer Note LastModified by Organizat ion Details LastModified Time Do you have difficulty walking or climbing stairs? No [email or web address] Information not available 05/01/2023 Are you able to walk? [email or web address] Information not available 03/15/2021 Are you able to care for yourself? Yes [email or web address] Information not available 05/01/2023 Do you have [...] Diagnosis/Indication Diagnosis SNOMED-CT Code Diagnosis ICD10 Code [id number] [facility] [address] [address] 04/29/2024 16:22:12 04/29/2024 16:50:41 Gestation period, 16 weeks 65692895 Z3A.16 Anxiety 20515420 F41.9 479233 [facility] [address] [address] 05/26/2024 14:35:17 05/26/2024 17:52:03 screening for malformation 536439537 Z36.3 Z3A.20 Health Concerns Section Related Observation LastModified by Organization Detai ls LastModified Time None Recorded Concern Status LastModified by Organization Details LastModified Time None Recorded Payers Encounter Date Sequence Insurance Name Policy Number Policy Shine Covered Member ID Shine Member ID Guarantor Name 05/26/[address] [facility] ON OR AFTER 02/02/21 (MEDICAID REPLACEMENT - HMO) Mae Frances [id number] Mae Frances OBGyn Episode Ob Episode Information Episode Created Date Number of Fetuses Patient Bloodtype Patient rh Status Prepregnancy Weight lbs Domestic Partner Domestic Partner Phone Father Name [place]ugboat Mate Status 04/01/20 24 1 A Positive 104 St[address] Hoang d OPEN Fetus Data First Name Last Name Admitted to NICU Weight (g) Sex Living Outcome Pediatric Complications Fetus ID Race Codes Race Delivery Type [id number] Problems Problem Notes 32wk growth us Problem Name Start Date End Date Resolution Snomed Code Not e History of chlamydial infection 398527123 chl neg Alpha thalassemia 04/16/2024 75753672 s ilent carrier; low risk Low lying placenta 251628581 r esolved Kb Calculation KB Calculation Method [...] Ultra Sound Latest Days Gestation 0 0 Pre-kwasi Flowsheet Flowsheet Date 04/01/2024 Frias Score Blood Edema Fundus Height Fundus Units Glucose Ketones Leukocytes Nitrite Labor Signs Protein Cervic Dilation Cervic Effacement Cervic Station neg none none trace Type Weight in lbs Pre/Post Dialysis Refused Weight 104.869358091914 BP Diastolic BP Location Tested BP Systolic [...] Type Weight in lbs Pre/Post Dialysis Refused 105.317857766809 BP Diastolic BP Location Tested BP Systolic [...] Type Weight in lbs Pre/Post Dialysis Refused 109.402742555538 BP Diastolic BP Location Tested BP Systolic [...] Type Weight in lbs Pre/Post Dialysis Refused 118.502175346774 BP Diastolic BP Location Tested BP Systolic [...] Type Weight in lbs Pre/Post Dialysis Refused 122.448163830043 BP Diastolic BP Location Tested BP Systolic [...]
--- OUTSIDE RECORDS SUMMARY | 2024-08-02 02:38 | XMS_ITS | Referral Summary ---
Author Organization [facility] Address [facility] [place] [address] Care Team Providers Care Pole Tester Name Role Phone No, Physician Primary Care Provider [phone] Allergies Active Allergy Reactions Criticality Noted Date Comments Bisacodyl Rash Medium 07/10/2010 Carbamazepine Unknown,Rash Medium 01/30/2010 Social History Tobacco Use Types Packs/Day Years Used Date Smoking Tobacco: Never Assessed Personal Safety Answer Date Recorded Have you ever been in or are you currently in a harmful physical or emotional relationship or is someone making you feel afraid or unsafe? Denies 04/16/2024 Estimated Date of Delivery Comme nts Yes 10/11/2024 Sex and Gender Information Value Date Recorded Sex Assigned at Not on file Legal Sex Female 7:24 PM [employer] Gender Identity Not on file Sexual Orientation Not on file Last Filed Vital Signs Vital Sign Reading Time Taken Comments Blood Pressure 102/54 04/16/2024 5:35 AM CDT Pulse 89 04/16/2024 5:35 AM CDT Temperature 36.6 ??C (97.9 ??F) 04/16/2024 3:10 AM CD T Respiratory Rate 16 04/16/2024 3:10 AM CDT Oxygen Saturation 99% 04/16/2024 5:35 AM CDT Inhaled Oxygen Concentration - - Weight 47.1 kg (103 lb 13.4 oz) 04/16/2024 3:10 AM CDT Height - - Body Mass Index - - Plan of Treatment Not on file Insurance [facility] Care Teams Pole Tester Relationship Specialty Start Date End Date No, Physician PCP - General 04/16/24
--- OUTSIDE RECORDS SUMMARY | 2024-08-02 02:38 | XMS_ITS | Encounter Summary ---
Author Organization [facility] Address [address] [facility] Attn: [place] [address] Care Team Providers Care Geology Instructor Name Role Phone Unavailable Primary Care Provider Unavailabl e Encounter Details Date Type Department Care Team (Late st Contact Info) Description 2002 Inpatient Historical [place], Rodger Carter MD [address] [facility] [address] [place] [address] Sakina Stoddard MD [address] [facility] [address] [place] [address] SINGL BORN IN HOSP-NO C/DELIVERY (Primary Dx) Social History Tobacco Use Types Packs/Day Years Used Date Smoking Tobacco: Never Assessed Sex and Gender Information Value Date Recorded Sex Assigned at Not on file Gender Identity Not on file Sexual Orientation Not on file documented as of this encounter Plan of Treatment Not on file documented as of this encounter Visit Diagnoses Diagnosis Single liveborn, born in hospital, delivered without mention of delivery- Primary documented in this encounter
--- OUTSIDE RECORDS SUMMARY | 2024-08-02 02:38 | XMS_ITS | Continuity of Care Document ---
Author Organization [facility] [place] Address [address] [place] [address] Assessment Encounter Date Assessment Date Assessment LastModified by Organization Details LastModified Time 05/27/2024 05/27/2024 Patient is _20__weeks . Discussed plan. Not available 05/27/2024 17:49:02 Plan of Treatment Reminders Order Date Submit [...] cy No observ ation record ed. [email or web address] [place] [address], [place], [address], 04/02/2024 10:04:48 04/01/20 24 04/01/2024 US, obste tric, follo w-up No observ ation record ed. [email or web address] [address], [place], [address], 04/02/2024 08:29:18 05/26/20 24 05/26/2024 US, obste tric, 2nd or 3rd trime ster No observ ation record ed. [email or web address] [address], [place], [address], 05/27/2024 18:34:24 05/26/20 24 05/26/2024 US, obste tric, 2nd or 3rd trime ster No observ ation record ed. [facility] [address], [place], [address], 05/26/2024 18:10:56 06/24/20 24 06/24/2024 US, obste tric, trans vagin al No observ ation record ed. [address], [place], [address], 06/24/2024 12:45:58 06/24/20 24 06/24/2024 US, obste tric, follo w-up No observ ation record ed. [address], [place], [address], 06/24/2024 12:46:08 06/24/20 24 06/24/2024 US, obste tric, follo w-up No observ ation record ed. [email or web address] [address], [place], [address], 06/25/2024 09:19:38 Result Notes None recorded. Problems Name Problem SNOMED Code Status Onset Date Resolution Date Notes Provider Name and Address Organization Details Recorded Time 82289571 Active 2023 Corine Novak [facility], [facility] 18:26:41 History of chlamydia l infection 877034336 Active chl neg John Marquez [facility] 15:43:29 Alpha thalassem ia 77574364 Active 2023 silent carrier; low risk John Marquez [facility], [facility] 17:47:43 Low lying placenta 144014170 Active resolved Sakina Cantrell CNM [address], [place], [address], [facility] 12:41:38 Mixed anxiety and depressiv e disorder 426308944 Active 2023 Corine Novak [facility] 12:29:58 Problem Notes None recorded. Procedures Surgical History Date Name Laterality Status Provider Name and Address Organization Details Recorded Time 02/19/20 24 Date of Last Pap Smear completed Corine Novak [facility] 02/19/2024 15:34:35 12/26/19 23 Nexplanon Removal completed Jacey Chavez [facility] [address], [place], [address], [facility] 12/25/2022 15:19:15 09/07/19 23 Control Implant Insertion completed Jacey Chavez [facility] [address], [place], [address], [facility] 09/07/2022 14:46:07 08/05/19 11 Tonsillectomy completed Corine Novak [facility] 10/17/2023 12:48:17 Imaging Results None recorded. Procedure Notes None recorded. Medical Equipment None Reported. Allergies Allergen ID Allergen Name Allergen Category Reaction Reaction Severity Criticality Documentation Date Start Date Code Code System Note Provider Name and Address Organization Details Recorded Time [facility] [facility] Not available Not available Not available 04/01/20242001 RxNorm Corine vargas, [facility] 18:25:07 Medications Name Sig Start [...] Updated DateTime 05/27/2024 162.56 cm 18.7 kg/m2 82466.56 833 g 107 mm[Hg] 69 mm[Hg] Corine Novak [facility] 17:28:44 Social History Question Answer Notes LastModified by Organizat ion Details LastModified Time Tobacco Smoking Status Never Smoker Sharonaakash Hickeydiana vargas, [facility] 05/01/2023 15:09:00 What Is Your Level Of Alcohol Consumption? None Information not available 03/15/2021 If You Are , What Was Your Level Of Alcohol Consumption Prior To ? Occasional [email or web address] Information not available 02/19/2024 Are You Blind Or Do You Have Difficulty Seeing? No Information not available 03/15/2021 What Is Your Level Of Caffeine Consumption? None Information not available 03/15/2021 In The 14 Days Before Symptom Onset, Have You Had Close Contact With A Laboratory-confir med COVID-19 While That Case Was Ill? No [email or web address] Information not available 07/14/2021 In The 14 Days Before Symptom Onset, Have You Had Close Contact With A Person Who Is Under Investigation For COVID-19 While That Person Was Ill? No [email or web address] Information not available 07/14/2021 Have You Been To An Area Known To Be High Risk For COVID-19? No [email or web address] Information not available 07/14/2021 Are You Deaf Or Do You Have Serious Difficulty Hearing? No Information not available 03/15/2021 What Type Of Diet Are You Following? REGULAR Information not available 03/15/2021 Do You Or Have You Ever Used E-cigarettes Or Vape? Current User Of Electronic Cigarettes [email or web address] Information not available 02/19/2024 Do You Use Your Seat Belt Or Car Seat Routinely? Yes Information not available 03/15/2021 Are You Sexually Active? Yes [email or web address] Information not available 05/01/2023 Do You Have Smoke And Carbon Monoxide Detectors In Your Home? Yes Information not available 03/15/2021 Do You Feel Stressed (tense, Restless, Nervous, Or Anxious, Or Unable To Sleep At Night)? [id number] Information not available 03/15/2021 Do You Use Any Illicit Or Recreational Drugs? Yes Marijuana [email or web address] Information not available 02/19/2024 Do You Use Sunscreen Routinely? Yes Information not available 03/15/2021 Has Tobacco Cessation Counseling Been Provided? No [email or web address] Information not available 05/01/2023 Do You Or Have You Ever Used Any Other Forms Of Tobacco Or Nicotine? Yes [email or web address] Information not available 02/19/2024 Sex: Unknown Functional Status Question Answer Note LastModified by Organizat ion Details LastModified Time Do you have difficulty walking or climbing stairs? No [email or web address] Information not available 05/01/2023 Are you able to walk? [email or web address] Information not available 03/15/2021 Are you able to care for yourself? Yes [email or web address] Information not available 05/01/2023 Do you have difficulty dressing or bathing? No [email or web address] Information not available 05/01/2023 What is your exercise level? None Information not available 03/15/2021 Mental Status None recorded. Family History Relationship Description Onset Age of this Age Resolved Age Notes LastModified by Organization Details LastModified Time Mother Cyst of ovary Not available 2020 11:15:47 Medical History Condition Response Allergies (Food, seasonal, environmental ) N Other N Breast Cancer N Drug/Latex Allergies/Reactions Y Blood Transfusion N Dermatologic Disorders N Lung Disease N Defects or Inherited Disease N Breast Problem N Gestational Diabetes N Hematologic disorders N Anesthesia Complications N History of STI Y Deep Vein Thrombosis N Polycystic ovary syndrome N Anxiety Disorder Y Autoimmune disease N Arthritis N Infertility N Polyps N Acid Reflux (GERD) N History of abnormal pap N Cancer N Stroke N Varicosities N Neurologic/Epilepsy N Endometriosis N High Cholesterol N Headaches N Fibromyalgia N Kidney Disease N Heart Problems N Kidney or Bladder Problems N Thyroid Problems N GI Problems N Eating Disorder [...] Diagnosis/Indication Diagnosis SNOMED-CT Code Diagnosis ICD10 Code [id number] [facility] [address],[facility] [place] [address] 04/29/2024 16:22:12 04/29/2024 16:50:41 Gestation period, 16 weeks 56673367 Z3A.16 Anxiety 11144595 F41.9 [id number] [facility] [address],[place] [address] 05/26/2024 14:35:17 05/26/2024 17:52:03 screening for malformation 075238306 Z36.3 Z3A.20 [id number] [facility] [address],[place] [address] 05/27/2024 17:14:49 05/28/2024 10:29:26 Gestation period, 20 weeks 23517276 Z3A.20 Anxiety 68130102 F41.9 Health Concerns Section Related Observation LastModified by Organization Detai ls LastModified Time None Recorded Concern Status LastModified by Organization Details LastModified Time None Recorded Payers Encounter Date Sequence Insurance Name Policy Number Policy Shine Covered Member ID Shine Member ID Guarantor Name 05/27/2024 2 [facility] ON OR AFTER 02/02/21 (MEDICAID REPLACEMENT - HMO) Mae Frances [id number] Mae Frances OBGyn Episode Ob Episode Information Episode Created Date Number of Fetuses Patient Bloodtype Patient rh Status Prepregnancy Weight lbs Domestic Partner Domestic Partner Phone Father Name Missile Technician Status 04/01/20 24 1 A Positive 104 Stan Willyar d OPEN Fetus Data First Name Last Name Admitted to NICU Weight (g) Sex Living Outcome Pediatric Complications Fetus ID Race Codes Race Delivery Type [id number] Problems Problem Notes 32wk growth us Problem Name Start Date End Date Resolution Snomed Code Not e History of chlamydial infection 506487154 chl neg Alpha thalassemia 04/16/2024 29221462 s ilent carrier; low risk Low lying placenta 053067881 r esolved Kb Calculation KB Calculation Method Initial Kb Date Initial Exam Date Initial Exam Provider Initial Ultrasound Date Last Menstrual Period Date Ultra Sound Weeks Gestation Conception by IVF Embryo Age at Transfer Date of Transfer 10/12/19 27 02/19/20 26 Sakina Smithgle 02/19/2024 12/22/2023 8 Eight[age] [...] Weight in lbs Pre/Post Dialysis Refused Weight 104.205274694942 BP Diastolic BP Location Tested BP Systolic [...] Type Weight in lbs Pre/Post Dialysis Refused 105.178420940227 BP Diastolic BP Location Tested BP Systolic [...] Type Weight in lbs Pre/Post Dialysis Refused 109.944869846538 BP Diastolic BP Location Tested BP Systolic [...] Type Weight in lbs Pre/Post Dialysis Refused 118.062783931615 BP Diastolic BP Location Tested BP Systolic [...] Type Weight in lbs Pre/Post Dialysis Refused 122.110934947042 BP Diastolic BP Location Tested BP Systolic [...]
--- OUTSIDE RECORDS SUMMARY | 2024-08-02 02:38 | XMS_ITS | Encounter Summary ---
Author Organization [facility] Address [address] [place] [address] Care Team Providers Care Travel Ticketing Reviewer Name Role Phone Unavailable Primary Care Provider Unavailabl e Encounter Details Date Type Department Care Team (Late st Contact Info) Description 2002 Outpatient Historical [facility] [id number] [place] [address] Cristel Nelson AU[address] [place] [address] Social History Tobacco Use Types Packs/Day Years [...]
--- OUTSIDE RECORDS SUMMARY | 2024-08-02 02:38 | XMS_ITS | Encounter Summary ---
Author Organization [facility] Healthcare Address [address] [place] [address] Care Team Providers Care Channel Cementer Outsole Machine Name Role Phone No, Physician Primary Care Provider [phone] Reason for Visit * Reason Comments Vomiting Encounter Details Date Type Department Care Team ([facility] st Contact Info) Description 04/16/2024 3:16 AM CDT - 04/16/2024 5:41 AM CDT Emergency [facility] Emergency Department [address] [place] [address] Cornel Paz MD [address] [place] [address] [place], [place] [id number] Hyperemesis gravidarum (Primary Dx); Marijuana abuse Discharge Disposition: Discharge to home or self care Social History Tobacco Use Types Packs/Day Years [...] on file 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 * Hyperemesis Gravidarum (AfterCare(R) Instructions(ER/ED)) (French) documented in this encounter Discharge Disposition Disposition Code Departure Means Destination Comment s Discharge to home or self care documented in this encounter ED Notes * Cornel Paz MD - 04/16/2024 3:33 AM CDT Patient Name: Mae Frances Patient Age: 23 y.o. Date of Service: 04/16/2024 Chief Complaint Patient presents with Vomiting HPI 23-year-old female 14 weeks verified by ultrasound presents today with nausea and vomiting. Complains of multiple episodes of nonbilious nonbloody vomiting. No abdominal pain. No urinary symptoms. No fever chills. States this happened at the start of her and worse over the past 24 hours. Has Zofran at home for nausea but did take. No past medical history on file. No past surgical history on file. No family history on file. Social History Social History Narrative Not on file Exam Vitals: 04/16/24 0337 04/16/24 0447 04/16/24 0449 04/16/24 0450 BP: 106/68 105/60 Pulse: 85 103 90 91 Resp: Temp: TempSrc: SpO2: 100% 99% 99% 99% Weight: Gen: Nauseous on room Head: NCAT Cardio: Rad 2+ Abd: Bs+, no ttp Msk: No deformity, no edema Skin: warm, dry Neuro: Alert, moving ext bilat Labs with values returned at the time of this note: Labs Reviewed URINALYSIS AND REFLEX TO MICROSCOPIC AND CULTURE - Abnormal Result Value Color, ur Yellow Clarity, ur Clear Specific gravity, ur 1.029 pH, urine 6.0 Protein, ur ql 1+ (*) Glucose, ur ql Trace (*) Ketones, ur 4+ (*) Bilirubin, ur Negative Blood, ur Negative Urobilinogen, ur <2.0 Nitrite, ur Negative Leukocyte esterase, ur Negative UA reflex comment Reflex to microscopic UA will be performed. CBC WITH AUTO DIFFERENTIAL - Abnormal WBC 14.1 (*) Hgb 12.9 Hct 37.1 Plt 313 MPV 10.0 RBC 4.63 MCV 80.1 (*) MCH 27.9 MCHC 34.8 RDW CV 13.5 RDW SD 38.5 NRBC abs 0.00 COMPREHENSIVE METABOLIC PANEL - Abnormal Sodium 137 Potassium, pl 3.6 Chloride 102 CO2 18 (*) Anion gap 17 (*) BUN 9 Creatinine 0.60 Glucose 131 Calcium 9.6 Bilirubin, total 0.6 Protein, pl 7.3 Albumin 3.9 Alk phos 39 (*) ALT 15 AST 23 DRUGS OF ABUSE SCREEN, URINE WITHOUT CONFIRMATION - Abnormal Amphetamine, ur Not Detected Barbiturates, ur Not Detected Benzodiazepines, ur Not Detected Cannabinoids, ur Screen Positive, presumptive (*) Cocaine, ur Not Detected Fentanyl, Ur Not Detected Methadone, ur Not Detected Opiates, ur Not Detected Oxycodone, ur Not Detected Phencyclidine, ur Not Detected Urine Creatinine 233 Narrative: Drug of Abuse screening is performed by immunoassay for medical purposes only. This is not to be used for Pain Management purposes. DIFFERENTIAL AUTO - Abnormal Neutrophil abs 12.7 (*) Imm gran abs 0.1 Lymphocyte abs 1.1 Monocyte abs 0.2 Eosinophil abs 0.0 Basophil abs 0.0 Neutrophil pct 89.9 Imm gran pct 0.4 Lymphocyte pct 8.1 Monocyte pct 1.4 Eosinophil pct 0.1 Basophil pct 0.1 URINALYSIS, MICROSCOPIC ONLY - Abnormal WBC, ur 0-5 RBC, ur 6-10 (*) Epithelial cells, squamous, ur 21-50 (*) Bacteria, ur 1+ (*) Mucous, ur Present (*) Culture Reflex Comment Value: Reflex conditions for urine culture (WBC >10) not met. LIPASE Lipase 27 EGFR eGFR >90 No orders to display Procedures Medications sodium chloride 0.9% bolus 1,000 mL (0 mL intravenous Stopped 04/16/24 6586) diphenhydrAMINE (BENADRYL) 50 mg/mL injection 25 mg (25 mg intravenous Given 04/16/24 3582) prochlorperazine (COMPAZINE) injection 10 mg (10 mg intravenous Given 04/16/24 3937) MDM Patient with nausea vomiting in early 2nd trimester . Abdominal exam benign. Given IV fluids, IV Compazine and IV diphenhydramine. Electrolytes stable. Ketones present in urine consistent with dehydration. Urinalysis not overly suggestive of urinary tract infection worse patient is symptomatic. Lipase not consistent pancreatitis. Marijuana positive I discussed cessation patient. On reassessment at 5:24 a.m. feeling much better and able to tolerate p.o.. Discussed follow-up with primaryteam for return precautions and answered questions. Impression 1. Hyperemesis gravidarum Cornel Paz MD 04/16/24 0525 * Cristin Walker RN - 04/16/2024 3:09 AM CDT Patient c/o N/V since yesterday. 14 weeks , US confirmed. First . Patient did not take home zofran. documented in this encounter Plan of Treatment Not on file documented as of this encounter Procedures Procedure Name Priority Date/Time Associated Diagnosis Comments URINALYSIS AND REFLEX TO MICROSCOPIC AND CULTURE STAT 04/16/2024 4:48 AM CDT DRUGS OF ABUSE SCREEN, URINE WITHOUT CONFIRMATION STAT 04/16/2024 4:48 AM CDT URINALYSIS, MICROSCOPIC ONLY STAT 04/16/2024 4:48 AM CDT EGFR STAT 04/16/2024 3:35 AM CDT DIFFERENTIAL AUTO STAT 04/16/2024 3:3 5 AM CDT CBC WITH AUTO DIFFERENTIAL STAT 04/16/2024 3:35 AM CDT LIPASE STAT 04/16/2024 3:35 AM CDT COMPREHENSIVE METABOLIC PANEL STAT 04/16/2024 3:35 AM CDT documented in this encounter Results * (ABNORMAL) Urinalysis, microscopic only (04/16/2024 4:48 AM CDT) WBC, ur 0-5 0 - 5 /HPF Comment:Testing performed by : [facility], [address] [place] [address], [place]., [address] RBC, ur 6-10(A) 0 - 2 /HPF EDILBERTO Comment:Testing performed by : [address] [address] Epithelial cells, squamous, ur 21-50(A) 0 - 5 /HPF EDILBERTO Comment:Testing performed by : [address], [place]., [address] Bacteria, ur 1+(A) EDILBERTO Comment:Testing performed by : [address], [place]., [address] Mucous, ur Present(A) EDILBERTO Comment:Testing performed by : [address] [address] Culture Reflex Comment Reflex conditions for urine culture (WBC >10) not met. EDILBERTO Comment:Testing performed by : [address], [place]., [address] Urine 04/16/2024 4:48 AM CDT 04/16/2024 4:52 AM CDT us Cornel Paz MD LAB URINE ORDERABLES Final Res ult [facility] [address] [facility] Department [place] [address] * (ABNORMAL) Drugs of Abuse Screen, Urine without Confirmation (04/16/2024 4:48 AM CDT) Amphetamine, ur Not Detected CutOff 500ng/mL Comment: Interpretive Data - Amphetamines: ??Samples containing greater than 500 ng/mL d-methamphetamine ??or other cross-reacting amphetamine compounds are reported as positive. ??Amphetamine immunoassays are subject to significant false positive rates due to cross-reactivity of non-amphetamine drugs. Confirmatory testing required for definitive results. Current Interpretive Data was last reviewed 2023. Testing performed by: [address] [address] Barbiturates, ur Not Detected CutOff 200ng/mL [facility] Comment: Interpretive Data - Barbiturates: ??Samples containing greater than 200 ng/mL secobarbital or other cross-reacting barbiturate compounds are reported as positive. ??False positive and false negative results are possible. Confirmatory testing required for definitive results. Current Interpretive Data was last reviewed 2023. Testing performed by: [facility], [address] [place] [address]., [address] Benzodiazepines, ur Not Detected CutOff 100ng/mL [facility] Comment: Interpretive Data - Benzodiazepines: ??Samples containing greater than 100 ng/mL nordiazepam or other cross-reacting compounds are reported as positive. False positive and false negative results are possible. Confirmatory testing required for definitive results. Current Interpretive Data was last reviewed 2023. Testing performed by: [address] [address] Cannabinoids, ur Screen Positive, presumptive (A) CutOff 50 ng/mL [facility] Comment: Interpretive Data - Cannabinoids: ??Samples containing greater than 50 ng/mL delta-9 THC -COOH or other cross-reacting compounds are reported as positive. ??False positive and false negative results are possible. ??Confirmatory testing required for definitive results. Current Interpretive Data was last reviewed 2023. Testing performed by: [address] [address] Cocaine, ur Not Detected CutOff 150ng/mL [facility] Comment: Interpretive Data - Cocaine: ??Samples containing greater than 150 ng/mL benzoylecgonine or other cross-reacting compounds are reported as positive. False positive and false negative results are possible. Confirmatory testing required for definitive results. Current Interpretive Data was last reviewed 2023. Testing performed by: [address] [address] Fentanyl, Ur Not Detected Cutoff 1 ng/mL [facility] Comment: Interpretive Data - Fentanyl: ??Samples containing greater than 1 ng/mL fentanyl or other cross-reacting fentanyl compounds are reported as positive. ??False positive and false negative results are possible. Confirmatory testing required for definitive results. Current Interpretive Data was last reviewed 2023. Testing performed by: [facility], [address] [place] [address]., [address] Methadone, ur Not Detected CutOff 300ng/mL EDIL[facility]ERTO Comment: Interpretive Data - Methadone: ??Samples containing greater than 300 ng/mL d,l-methadone or other cross-reacting compounds are reported as positive. ??False positive and false negative results are possible. Confirmatory testing required for definitive results. Current Interpretive Data was last reviewed 2023. Testing performed by: [facility], [address] [place] [address]., [address] Opiates, ur Not Detected CutOff 300ng/mL EDILBERTO Comment: Interpretive Data - Opiates: ??Samples containing greater than 300 ng/mL morphine or other cross-reacting compounds are reported as positive. ??False positive and false negative results are possible. Confirmatory testing required for definitive results. Current Interpretive Data was last reviewed 2023. Testing performed by: [address] [address] Oxycodone, ur Not Detected CutOff 100ng/mL [facility] Comment: Interpretive Data - Oxycodone: ??Samples containing greater than 100 ng/mL oxycodone or other cross-reacting compounds are reported as ??positive. ??False positive and false negative results are possible. Confirmatory testing required for definitive results. Current Interpretive Data was last reviewed 2023. Testing performed by: [address] [address] Phencyclidine, ur Not Detected CutOff 25 ng/mL [facility] Comment: Interpretive Data - Phencyclidine: ??Samples containing greater than 25 ng/mL phencyclidine or other cross-reacting compounds are reported as positive. ??False positive and false negative results are possible. Confirmatory testing required for definitive results. Current Interpretive Data was last reviewed 2023. Testing performed by: [address] [address] Urine Creatinine 233 mg/dL EDILBERTO Comment: Interpretive Data Urine Creatinine: < 10 mg/dL is extremely dilute = or > 10 but < 20 mg/dL is dilute = or > 20 mg/dL is normal Current Interpretive Data was last revised on 2017. Testing performed by: [address] [address] Urine 04/16/2024 4:48 AM CDT 04/16/2024 4:52 AM CDT Narrative EDILBERTO - 04/16/2024 5:05 AM CDT Drug of Abuse screening is performed by immunoassay for medical purposes only. ??This is not to be used for Pain Management purposes. us Cornel Paz MD LAB URINE ORDERABLES Final Res ult [facility]IL[facility] [address] [facility] Department [place] [address] * (ABNORMAL) Urinalysis reflex to microscopic and culture Urine (04/16/2024 4:48 AM CDT) Color, ur Yellow Yellow Comment:Testing performed by : [address] [address] Clarity, ur Clear Clear EDILBERTO Comment:Testing performed by : [address] [address] Specific gravity, ur 1.029 1.003 - 1.030 EDILBERTO Comment:Testing performed by : [address] [address] pH, urine 6.0 EDILBERTO Comment: Interpretive Data ? Urine pH is affected by diet, medications, systemic acid-base disturbances, and renal tubular function. ??pH may affect urinary stone formation. ??For example, urine pH below 6.0 may help reduce the tendency for calcium phosphate stones and pH greater than 6.0 may reduce the tendency for uric acid stone formation. Source: [facility] Current Interpretive Data was last revised on 2017 Testing performed by: [address] [address] Protein, ur ql 1+(A) Negative EDILBERTO Comment:Testing performed by : [address] [address] Glucose, ur ql Trace(A) Negative EDILBERTO Comment:Testing performed by : [facility], [address] [place] [address], [place]., [address] Ketones, ur 4+(A) Negative EDILBERTO Comment:Testing performed by : [address], [place]., [address] Bilirubin, ur Negative Negative EDILBERTO Comment:Testing performed by : [address], [place]., [address] Blood, ur Negative Negative EDILBERTO Comment:Testing performed by : [address], [place]., [address] Urobilinogen, ur <2.0 <2.0 mg/dL EDILBERTO Comment:Testing performed by : [address], [place]., [address] Nitrite, ur Negative Negative EDILBERTO Comment:Testing performed by : [address], [place]., [address] Leukocyte esterase, ur Negative Negative EDILBERTO Comment:Testing performed by : [address], [place]., [address] UA reflex comment Reflex to microscopic UA will be performed. EDILBERTO Comment:Testing performed by : [address], [place]., [address] Urine 04/16/2024 4:48 AM CDT 04/16/2024 4:52 AM CDT us Cornel Paz MD LAB MICROBIOLOGY - GENERAL ORD ERABLES Final Result Performing Organization Address City/State/[facility] Co de Phone Number EDILBERTO [address] [facility] Department of Laboratories [place], [place] [id number] * eGFR (04/16/2024 3:35 AM CDT) eGFR >90 >=60 mL/min/1. 73 m2 Comment: Interpretive Data Reference Interval Normal ?>/= 90 mL/min/1.73m2 Mildly decreased* ? 60 - 89 mL/min/1.73m2 Mildly to moderately decreased ?45 - 59 mL/min/1.73m2 Moderately to severely decreased ??30 - 44 mL/min/1.73m2 Severely decreased ?15 - 29 mL/min/1.73m2 Kidney Failure ?< 15 ??mL/min/1.73m2 *Relative to young adult level Estimated glomerular filtration rate is determined by the 2020 CKD-EPI equation recommended by the National Kidney Foundation (A Unifying Approach to GFR Estimation: Recommendations of the NKF-ASK Task Force on Reassessing the Inclusion of Race in Diagnosing Kidney Disease, JASN 2020). The CKD-EPI equation should not be used for patients with unstable renal function and has not been validated in children and those over 70. Current interpretive data was last reviewed 2021. Testing performed by: [address] [address] Blood 04/16/2024 3:35 AM CDT 04/16/2024 3:38 AM CDT us Cornel Paz MD LAB BLOOD ORDERABLES Final Res ult [facility] [address] [facility] Department [place] [address] * (ABNORMAL) Differential, auto (04/16/2024 3:35 AM CDT) Neutrophil abs 12.7(H) 1.5 - 6.5 K/cumm Comment:Testing performed by : [address] [address] Imm gran abs 0.1 0.0 - 0.1 K/cumm EDILBERTO CISNEROS Comment:Testing performed by : [address] [address] Lymphocyte abs 1.1 0.8 - 3.3 K/cumm EDILBERTO Comment:Testing performed by : [address] [address] Monocyte abs 0.2 0.2 - 0.8 K/cumm [facility] Comment:Testing performed by : [address] [address] Eosinophil abs 0.0 0.0 - 0.5 K/cumm EDILBERTO Comment:Testing performed by : [address], [place]., [address] Basophil abs 0.0 0.0 - 0.1 K/cumm [facility] Comment:Testing performed by : [address] [address] Neutrophil pct 89.9 % [facility] Comment: Interpretive Data Percent cell count reference ranges are not reported, since discordance with absolute values may lead to misinterpretation of CBC data. Current Interpretive Data was last revised on 2017. Testing performed by: [address] [address] Imm gran pct 0.4 % [facility] Comment: Interpretive Data Percent cell count reference ranges are not reported, since discordance with absolute values may lead to misinterpretation of CBC data. Current Interpretive Data was last revised on 2017. Testing performed by: [address] [address] Lymphocyte pct 8.1 % [facility] Comment: Interpretive Data Percent cell count reference ranges are not reported, since discordance with absolute values may lead to misinterpretation of CBC data. Current Interpretive Data was last revised on 2017. Testing performed by: [address] [address] Monocyte pct 1.4 % [facility] Comment: Interpretive Data Percent cell count reference ranges are not reported, since discordance with absolute values may lead to misinterpretation of CBC data. Current Interpretive Data was last revised on 2017. Testing performed by: [address] [address] Eosinophil pct 0.1 % [facility] Comment: Interpretive Data Percent cell count reference ranges are not reported, since discordance with absolute values may lead to misinterpretation of CBC data. Current Interpretive Data was last revised on 2017. Testing performed by: [address] [address] Basophil pct 0.1 % EDILBERTO CISNEROS Comment: Interpretive Data Percent cell count reference ranges are not reported, since discordance with absolute values may lead to misinterpretation of CBC data. Current Interpretive Data was last revised on 2017. Testing performed by: [address] [address] Blood 04/16/2024 3:35 AM CDT 04/16/2024 3:38 AM CDT Cornel Paz MD LAB BLOOD ORDERABLES Final Res ult Performing Organization Address City/[facility]/ZIP Co de Phone Number [address] [address] * Lipase (04/16/2024 3:35 AM CDT) Pathologist [facility] Lipase 27 10 - 99 Units/L Comment:Testing performed by : [address] [address] Blood 04/16/2024 3:35 AM CDT 04/16/2024 3:38 AM CDT Cornel Paz MD LAB BLOOD ORDERABLES Final Res ult Performing Organization Address [facility] Co de Phone Number [facility]UN[address] [place] [address] * (ABNORMAL) Comprehensive metabolic panel (04/16/2024 3:35 AM CDT) Sodium 137 135 - 145 mmol/L Comment:Testing performed by : [address] [address] Potassium, pl 3.6 3.3 - 4.9 mmol/L EDILBERTO CISNEROS Comment:Testing performed by : [address] [address] Chloride 102 97 - 110 mmol/L EDILBERTO CISNEROS Comment:Testing performed by : [address] [address] CO2 18(L) 22 - 32 mmol/L EDILBERTO CISNEROS Comment:Testing performed by : [address] [address] Anion gap 17(H) 2 - 15 mmol/L EDILBERTO Comment:Testing performed by : [address] [address] BUN 9 6 - 25 mg/dL EDILBERTO Comment:Testing performed by : [address], [place]., [address] Creatinine 0.60 0.60 - 1.10 mg/dL EDILBERTO Comment:Testing performed by : [address] [address] Glucose 131 70 - 199 mg/dL EDILBERTO Comment: Interpretive Data Fasting glucose >/= 126 mg/dl is diagnostic for diabetes. ?? Fasting is defined as no caloric intake for at least 8 hours. Fasting glucose between 100 mg/dl to 125 mg/dl is diagnostic of prediabetes. In a patient with classic symptoms of hyperglycemia or hyperglycemic crisis, a random glucose >/= 200 mg/dl is diagnostic for diabetes. In the absence of unequivocal hyperglycemia, results should be confirmed by repeat testing. The classification and Diagnosis of Diabetes Diabetes Care 2021; 46: S19-S40. Current interpretive data was last revised 2022. Testing performed by: [address] [address] Calcium 9.6 8.5 - 10.3 mg/dL EDILBERTO Comment:Testing performed by : [address] [address] Bilirubin, total 0.6 0.1 - 1.2 mg/dL EDILBERTO Comment:Testing performed by : [address] [address] Protein, pl 7.3 6.5 - 8.5 g/dL EDILBERTO Comment:Testing performed by : [address] [address] Albumin 3.9 3.5 - 5.0 g/dL EDILBERTO Comment:Testing performed by : [address] [address] Alk phos 39(L) 40 - 130 Units/L EDILBERTO Comment:Testing performed by : [address] [address] ALT 15 7 - 45 Units/L EDILBERTO CISNEROS Comment:Testing performed by : [address] [address] AST 23 10 - 45 Units/L EDILBERTO CISNEROS Comment:Testing performed by : [address] [address] Blood (Blood, Venous) 04/16/2024 3:35 AM CDT 04/16/2024 3:38 AM CDT us Cornel Paz MD LAB BLOOD ORDERABLES Final Res ult EDILBERTO [address] [facility] Department [place] [address] * (ABNORMAL) CBC with auto differential (04/16/2024 3:35 AM CDT) WBC 14.1(H) 3.8 - 9.9 K/cumm Comment:Testing performed by : [address] [address] Hgb 12.9 11.9 - 15.5 g/dL EDILBERTO CISNEROS Comment:Testing performed by : [address] [address] Hct 37.1 35.6 - 45.5 % EDILBERTO CISNEROS Comment:Testing performed by : [address] [address] Plt 313 150 - 400 K/cumm EDILBERTO CISNEROS Comment:Testing performed by : [address] [address] MPV 10.0 9.1 - 12.3 fL EDILBERTO CISNEROS Comment:Testing performed by : [address] [address] RBC 4.63 3.90 - 5.20 M/cumm EDILBERTO CISNEROS Comment:Testing performed by : [address] [address] MCV 80.1(L) 81.3 - 96.4 fL EDILBERTO CISNEROS Comment:Testing performed by : [address] [address] MCH 27.9 27.1 - 33.3 pg EDILBERTO CISNEROS Comment:Testing performed by : [address] [address] MCHC 34.8 32.3 - 35.7 g/dL EDILBERTO CISNEROS Comment:Testing performed by : [address] [address] RDW CV 13.5 11.1 - 14.9 % EDILBERTO CISNEROS Comment:Testing performed by : [address] [address] RDW SD 38.5 35.7 - 48.1 fL EDILBERTO CISNEROS Comment:Testing performed by : [address] [address] NRBC abs 0.00 0.00 - 0.01 K/cumm EDILBERTO CISNEROS Comment:Testing performed by : [address] [address] Blood (Blood, Venous) 04/16/2024 3:35 AM CDT 04/16/2024 3:38 AM CDT us Cornel Paz MD LAB BLOOD ORDERABLES Final Res ult EDILBERTO [address] [facility] Department of Laboratories [place], [place] [id number] documented in this encounter Visit Diagnoses Diagnosis Hyperemesis gravidarum- Primary Mild hyperemesis gravidarum, unspecified as to episode of care Marijuana abuse Nondependent cannabis abuse, unspecified documented in this encounter Administered Medications Inactive Administered Medications - up to 3 most recent administrations Medication Order MAR Action Action Date Dose Rate Site diphenhydrAMINE (BENADRYL) 50 mg/mL injection 25 mg 25 mg (0.531 mg/kg), intravenous, Administer over 2 Minutes, Once, On Gladis 04/16/24 at 0334, For 1 dose Given 04/16/2024 3:42 AM CDT 25 mg prochlorperazine (COMPAZINE) injection 10 mg 10 mg (0.212 mg/kg), intravenous, Administer over 2 Minutes, Once, On Gladis 04/16/24 at 0334, For 1 dose Given 04/16/2024 3:37 AM CDT 10 mg sodium chloride 0.9% bolus 1,000 mL 1,000 mL (21.2 mL/kg), intravenous, at 1,000 mL/hr, Administer over 1 Hours, Once, On Gladis 04/16/24 at 0334, For 1 dose New Bag 04/16/2024 3:38 AM CDT 1,000 mL 1000 mL/hr documented in this encounter Active and Recently Administered Medications Times are shown in CDT. Scheduled Medication Order 04/14/2024 04/15/2024 04/16/2024 diphenhydrAMINE (BENADRYL) 50 mg/mL injection 25 mg (COMPLETED) 25 mg (0.531 mg/kg), intravenous, Administer over 2 Minutes, Once, On Gladis 04/16/24 at 0334, For 1 dose 0342 (Given - Provid er: Feng Warner RN) prochlorperazine (COMPAZINE) injection 10 mg (COMPLETED) 10 mg (0.212 mg/kg), intravenous, Administer over 2 Minutes, Once, On Gladis 04/16/24 at 0334, For 1 dose 0337 (Given - Provid er: Feng Warner RN) sodium chloride 0.9% bolus 1,000 mL (COMPLETED) 1,000 mL (21.2 mL/kg), intravenous, at 1,000 mL/hr, Administer over 1 Hours, Once, On Gladis 04/16/24 at 0334, For 1 dose 0338 (New Bag - Prov ider: Feng Warner RN)0446 (Stopped - Provider: Feng Warner RN) documented in this encounter Orders Medications Ordered That Matteo ht Not Have Been Administered Count Last Ordered Date First Ordered Date ondansetron (ZOFRAN) injection 4 mg 1 04/16 ondansetron ODT (ZOFRAN-ODT) disintegrating tablet 4 mg 1 04/16/2024 documented in this encounter Care Teams Channel Cementer Outsole Machine Relationship Specialty Start Date End Date No, Physician PCP - General 04/16/24 documented as of this encounter
--- OUTSIDE RECORDS SUMMARY | 2024-08-02 02:38 | XMS_ITS | Encounter Summary ---
Author Organization [facility] Address [address] [place] [address] Care Team Providers Care Twister Frame Tender Name Role Phone Unavailable Primary Care Provider Unavailabl e Encounter Details Date Type Department Care Team (Late st Contact Info) Description 2002 Outpatient Historical [facility] Pediatrics - [facility] [address] [address] Radhika Emmanuel MD NO ADDRESS ON FILE Social History Tobacco Use Types Packs/Day Years [...]
--- OUTSIDE RECORDS SUMMARY | 2024-08-02 02:38 | XMS_ITS | Encounter Summary ---
Author Organization [facility] Address [address] [place] [address] Care Team Providers Care Ehr Trainer Name Role Phone Unavailable Primary Care Provider Unavailabl e Encounter Details Date Type Department Care Team (Latest Contact Info) Description 2002 Outpatient Historical [facility] Radhika Bojorquez MD NO ADDRESS ON FILE CONGENITAL HYPOTHYROIDSM (Primary Dx) Social History Tobacco Use Types Packs/Day Years Used Date Smoking Tobacco: Never Assessed Sex and Gender Information Value Date Recorded Sex Assigned at Not on file Gender Identity Not on file Sexual Orientation Not on file documented as of this encounter Plan of Treatment Not on file documented as of this encounter Visit Diagnoses Diagnosis Congenital hypothyroidism- Primary documented in this encounter
--- OUTSIDE RECORDS SUMMARY | 2024-08-02 02:38 | XMS_ITS | Encounter Summary ---
Author Organization [facility] Address [address] [place] [address] Care Team Providers Care Residence Life Coordinator Name Role Phone Unavailable Primary Care Provider Unavailabl e Encounter Details Date Type Department Care Team (Late st Contact Info) Description 2002 Outpatient Historical [facility] Pediatrics - [facility] [address] [address] Rodger Verma MD [id number] [place] [address] Social History Tobacco Use Types Packs/Day Years [...]
--- OUTSIDE RECORDS SUMMARY | 2024-08-02 02:38 | XMS_ITS | Encounter Summary ---
Author Organization [facility] Address [address] [place] [address] Care Team Providers Care Customer Service Security Officer Name Role Phone Unavailable Primary Care Provider Unavailabl e Reason for Visit * Reason Comments Sore Throat Sore throat, chills, bodyaches, headache; sx started this AM when waking up * Auth/Cert (Routine) Specialty Diagnoses / Procedures Referred By Suzy romero Referred To Contact Urgent Care [facility] Care [address] [place] [id number] Referral ID Status Reason Start Date Expiration Date Visits Re quested Visits Authorized [id number] 1 1 Encounter Details Date Type Department Care Team (Latest Contact Info) Description 02/08/2023 5:17 PM CDT - 02/08/2023 6:31 PM CDT Hospital Encounter [facility] [address] [place] [id number] Radhika Grullon FNP [address] [place] [id number] Streptococcal pharyngitis (Primary Dx) Discharge Disposition: Home or Self Care Social History Tobacco Use Types Packs/Day Years Used Date Smoking Tobacco: Never Tobacco Cessation:Counseling Given: Not Answered Alcohol Use Standard Drinks/Week Comments Never 0 [...] PM CDT documented as of this encounter Last Filed Vital Signs Vital Sign Reading Time Taken Comments Blood Pressure 113/75 02/08/2023 5:19 PM CDT Pulse 100 02/08/2023 5:19 PM CDT Temperature 36.8 ??C (98.3 ??F) 02/08/2023 5:19 PM CD T Respiratory Rate 20 02/08/2023 5:19 PM CDT Oxygen Saturation 97% 02/08/2023 5:19 PM CDT Inhaled Oxygen Concentration - - Weight 49.9 kg (110 lb) 02/08/2023 5:19 PM CDT Height 165.1 cm (5' 5 ) 02/08/2023 5:19 PM CDT Body Mass Index 18.3 02/08/2023 5:19 PM CDT documented in this encounter Discharge Instructions * Discharge Instructions* Radhika Grullon FNP - 02/08/2023 6:25 PM CDT Amoxicillin as prescribed until completed. Tylenol and/or ibuprofen for pain and fever. Warm salt water gargles and lozenges can be soothing to the throat. Replace toothbrush and toothpaste after taking the antibiotic for 72 hours. Avoid others until fever free for 24 hours without the use of Tylenol or ibuprofen and after taking the antibiotic for 24 hours. Follow-up with primary care physician in 3 days. Go to ER for fever, difficulty breathing, difficulty swallowing, nausea, vomiting, abdominal pain, decreased urination or any new or worsening concerns. * Attachments The following attachments cannot be sent through Care Everywhere. * Strep Throat: Pediatric (Albanian) documented in this encounter Medications at Time of Discharge Medication Sig Dispensed Refills Start Date End Date clotrimazole (LOTRIMIN) 1 % Cream polyethylene glycol 3350 17 gram/dose oral powder Take 17 Grams by mouth. 01/16/2023 sennosides 8.6 mg tablet Take 17.2 mg by mouth 1 time daily as needed. 01/16/2023 amoxicillin (AMOXIL) 500 mg capsule Take 1 Capsule (500 mg) by mouth 2 times daily for 10 days. 20 Capsule 02/08/2023 02/18/2023 documented as of this encounter ED Notes * Radhika Grullon, MANAGER MANAGING - 02/08/2023 4:51 PM CDT HISTORY OF PRESENT ILLNESS Mae Jaguar Frances, a 22 y.o. female presents with a Chief Complaint of Sore Throat (Sore throat, chills, bodyaches, headache; sx started this AM when waking up ) Subjective 22 y/o female presents with c/o sore throat, body ache, headache since this am. Denies fever, difficulty breathing, difficulty swallowing, n/v, abdominal pain, dysuria, rash. Aleve with some improvement. Denies or REVIEW OF SYSTEMS Review of Systems Constitutional: Negative for chills and fever. HENT: Positive for sore throat. Negative for ear pain, postnasal drip, rhinorrhea and trouble swallowing. Eyes: Negative. Respiratory: Negative for cough, chest tightness, shortness of breath and wheezing. Cardiovascular: Negative for chest pain and palpitations. Gastrointestinal: Negative for abdominal pain, diarrhea, nausea and vomiting. Genitourinary: Negative for decreased urine volume, difficulty urinating, dysuria and flank pain. Musculoskeletal: Positive for myalgias. Negative for back pain, neck pain and neck stiffness. Skin: Negative for color change and rash. Neurological: Positive for headaches. Negative for dizziness, seizures and syncope. Psychiatric/Behavioral: Negative. PAST MEDICAL HISTORY REVIEWED MEDICAL: Patient has no past medical history on file. SURGICAL: Patient has no past surgical history on file. FAMILY: Patient's family history is not on file. SOCIAL: reports that she has never smoked. She does not have any smokeless tobacco history on file. She reports that she does not drink alcohol and does not use drugs. No history on file. Social History Other Topics Concern Not on file PROBLEM LIST: Patient does not have a problem list on file. ALLERGIES Bisacodyl and Carbamazepine HOME MEDICATIONS Discharge Medication List as of 02/08/2023 6:26 PM START taking these medications Details amoxicillin (AMOXIL) 500 mg capsule Take 1 Capsule (500 mg) by mouth 2 times daily for 10 days., Disp-20 Capsule, R-0 CONTINUE these medications which have NOT CHANGED Details polyethylene glycol 3350 17 gram/dose oral powder Take 17 Grams by mouth. sennosides 8.6 mg tablet Take 17.2 mg by mouth 1 time daily as needed. clotrimazole (LOTRIMIN) 1 % Cream Objective PHYSICAL EXAM INITIAL VS BP: 113/75 (02/08/231718), Heart Rate: (not recorded), Pulse: 100 (02/08/231718), Resp: 20 (02/08/231718), Temp: 98.3 ??F (36.8 ??C) (02/08/231718), Temp src: Oral (02/08/231718), SpO2: 97 % (02/08/231718), Pain Score: Five (02/08/231718), Height: 5' 5 (165.1 cm) (02/08/231718), Weight: 49.9 kg (110 lb) (02/08/231718), BMI (Calculated): 18.31 (02/08/231718) Patient's last menstrual period was 01/29/2023. Physical Exam Constitutional: General: She is not in acute distress. Appearance: She is well-developed. She is not ill-appearing, toxic-appearing or diaphoretic. HENT: Head: Normocephalic and atraumatic. Right Ear: Tympanic membrane normal. Tympanic membrane is not perforated, erythematous or bulging. Left Ear: Tympanic membrane normal. Tympanic membrane is not perforated, erythematous or bulging. Nose: No congestion or rhinorrhea. Right Sinus: No maxillary sinus tenderness or frontal sinus tenderness. Left Sinus: No maxillary sinus tenderness or frontal sinus tenderness. Mouth/Throat: Mouth: Mucous membranes are moist. Pharynx: Uvula midline. Pharyngeal swelling and posterior oropharyngeal erythema present. Eyes: General: Lids are normal. Extraocular Movements: Extraocular movements intact. Conjunctiva/sclera: Conjunctivae normal. Cardiovascular: Rate and Rhythm: Normal rate and regular rhythm. Heart sounds: Normal heart sounds. No murmur heard. Pulmonary: Effort: Pulmonary effort is normal. No tachypnea, accessory muscle usage or respiratory distress. Breath sounds: Normal breath sounds. Abdominal: General: Bowel sounds are normal. There is no distension. Palpations: Abdomen is soft. Tenderness: There is no abdominal tenderness. There is no right CVA tenderness or left CVA tenderness. Musculoskeletal: General: Normal range of motion. Cervical back: Full passive range of motion without pain, normal range of motion and neck supple. Lymphadenopathy: Cervical: Cervical adenopathy present. Skin: General: Skin is warm and dry. Findings: No rash. Neurological: General: No focal deficit present. Mental Status: She is alert and oriented to person, place, and time. GCS: GCS eye subscore is 4. GCS verbal subscore is 5. GCS motor subscore is 6. Psychiatric: Attention and Perception: Attention normal. Mood and Affect: Mood normal. Speech: Speech normal. Behavior: Behavior normal. DIAGNOSTICS LAB: Results for orders placed or performed during the hospital encounter of 02/08/23 (from the past 24 hour(s)) POC RAPID STREP A ANTIGEN Result Value Ref Range RAPID STREP Positive (A) Negative RADIOLOGY: No orders to display EKG: PROCEDURES Procedures MEDICAL DECISION MAKING AND PLAN OF CARE Rapid strep positive. Amoxicillin prescribed. Discussed medication, supportive care, follow-up, andindications for going to the ER as listed in discharge instructions. Patient does not appear toxic at this time she is afebrile, heart rate is within normal limits and saturation is 97% on room air. Patient is agreeable and verbalized understanding of plan of care and discharge REEVALUATION CASE DISCUSSED Discharge Medication List as of 02/08/2023 6:26 PM START taking these medications Details amoxicillin (AMOXIL) 500 mg capsule Take 1 Capsule (500 mg) by mouth 2 times daily for 10 days., Disp-20 Capsule, R-0 CONTINUE these medications which have NOT CHANGED Details polyethylene glycol 3350 17 gram/dose oral powder Take 17 Grams by mouth. sennosides 8.6 mg tablet Take 17.2 mg by mouth 1 time daily as needed. clotrimazole (LOTRIMIN) 1 % Cream LAST VS BP: 113/75 (02/08/231718), Heart Rate: (not recorded), Pulse: 100 (02/08/231718), Resp: 20 (02/08/231718), Temp: 98.3 ??F (36.8 ??C) (02/08/231718), Temp src: Oral (02/08/231718), SpO2: 97 % (02/08/231718), Pain Score: Five (02/08/231718) CLINICAL IMPRESSION Final diagnoses: [J02.0] Streptococcal pharyngitis (Primary) CODING Medical Decision Making Risk Prescription drug management. DISPOSITION, EDUCATION AND MEDICATION RECONCILIATION Medications reconciled. See after visit summary for patient education on discharged patients. documented in this encounter Plan of Treatment Not on file documented as of this encounter Procedures Procedure Name Priority Date/Time Associated Diagnosis Comments POC RAPID STREP A Stat 02/08/2023 6:1 4 PM CDT documented in this encounter Results * (ABNORMAL) POC RAPID STREP A ANTIGEN (02/08/2023 6:14 PM CDT) RAPID STREP Positive(A ) Negative 02/08/2023 6:14 PM CDT [facility] [employer] SERVICES [facility] Upper Respiratory SPECIMEN FROM THROAT / Unknown 02/08/2023 6:14 PM CDT 02/08/2023 6:16 PM CDT Interface Provider Poct POINT OF CARE TE STING [facility]OR[facility] SERVICES [facility] CLIA# [id number] [address] [place] [address] documented in this encounter Visit Diagnoses Diagnosis Streptococcal pharyngitis- Primary Streptococcal sore throat documented in this encounter
--- OUTSIDE RECORDS SUMMARY | 2024-08-02 02:38 | XMS_ITS | Clinical Summary ---
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 Gender Identity Not on file Sexual Orientation Not on file Obstetrics History Para Term AB IAB SAB Ectopic Multiple Livin g Live Births 1 Date Outcome GA Total Labor Labor/2nd/3rd Weight Sex Type Anes PTL Nora A1 A5 Name Clin Current Last Filed Vital Signs Vital Sign Reading [...] Mass Index - - Plan of Treatment Health Maintenance Due Date Last Done Comments Cervical Cancer Screening 2002 Depression Screening 2002 Hepatitis C Screening 2002 Meningococcal B Vaccine (1 o f 2 - Patient Seeks Protection) 2018 Regular Well Visit/Exam 18-64 2020 Influenza Vaccine (#1) 2024 05/17/2020, 2019 DTaP/Tdap/Td Vaccine (7 - Td or Tdap) 06/10/2024 06/10/2014, 11/01/2006, 03/28/2004, Additional history exists Pneumococcal vaccine <65 Completed 005, 2004, 04/02/2003, Additional history exists Varicella Vaccines Completed 11/01/2006, 10/28/2003 HPV Vaccines Completed 05/28/2018, 08/22/2016 Meningococcal Vaccine Completed 05/17/2020, 017 Insurance [facility] Care Teams Sign Writer Hand Relationship Specialty Start Date End Date No, Physician PCP - General 04/16/24
--- OUTSIDE RECORDS SUMMARY | 2024-08-02 02:38 | XMS_ITS | Continuity of Care Document ---
Author Organization [facility] Address [address] [place] [address] Assessment Encounter Date Assessment Date Assessment LastModified by Organization Details LastModified Time 04/29/2024 04/29/2024 Patient is ___weeks . Discussed plan. [email or web address] Not available 04/29/2024 16:29:27 Plan of Treatment Reminders Order Date Submit [...] d. Imaging None recorde d. Medication Orders Zoloft 25 mg tablet 2023 024 [id number], [address] , [place], [place], [id number], 04/29/2024 16:44:07 Patient TargetsNo targets recorded. Patient InstructionsNo instructions recorded. Reason for Referral None Reported. Results Created Date Observation Date Name Description Value Unit Range Abnormal Flag Note LastModifiedBy Organization Detail LastModifiedTime 04/01/2004/02/2024 US, obste tric, nucha l trans lucen cy No observ ation record ed. [email or web address] [place] [address], [place], [address], 04/02/2024 10:04:48 04/01/20 24 04/01/2024 US, obste tric, follo w-up No observ ation record ed. [email or web address] [address], [place], [address], 04/02/2024 08:29:18 05/26/20 24 05/26/2024 US, obste tric, 2nd or 3rd trime ster No observ ation record ed. [email or web address] [address], [place], [address], 05/27/2024 18:34:24 05/26/20 24 05/26/2024 US, obste tric, 2nd or 3rd trime ster No observ ation [email or web address] [address], [place], [address], 05/26/2024 18:10:56 06/24/20 24 06/24/2024 US, obste tric, trans vagin al No observ ation record ed. [email or web address] [place] [address] [address], [place], [address], 06/24/2024 12:45:58 06/24/2006/24/2024 US, obste tric, follo w-up No observ ation record ed. [email or web address] [place] [address], [place], [address], 06/24/2024 12:46:08 06/24/20 24 06/24/2024 US, obste tric, follo w-up No observ ation record ed. [email or web address] [address], [place], [address], 06/25/2024 09:19:38 Result Notes None recorded. Problems Name Problem SNOMED Code Status Onset Date Resolution Date Notes Provider Name and Address Organization Details Recorded Time 53864034 Active 2023 Corine vargas [place] - [facility] 08/28/202 4 18:26:41 History of chlamydia l infection 759339872 Active chl neg John Marquez null, [facility] 4 15:43:29 Alpha thalassem ia 84662520 Active 2023 silent carrier; low risk John Marquez null, [facility] 4 17:47:43 Low lying placenta 411666145 Active resolved Sakina Cantrell CNM [address], [place], [address], [facility] 4 12:41:38 Mixed anxiety and depressiv e disorder 501815922 Active 2023 Corine Novak [facility], [facility] 4 12:29:58 Problem Notes None recorded. Procedures Surgical History Date Name Laterality Status Provider Name and Address Organization Details Recorded Time 02/19/20 24 Date of Last Pap Smear completed Corine Novak [facility] 02/19/2024 15:34:35 12/26/19 23 Nexplanon Removal completed [facility]acey Chavez [facility] [address], [place], [address], [facility] 12/25/2022 15:19:15 09/07/19 23 Control Implant Insertion completed Jacey Chavez [facility] [address], [place], [address], [facility] 09/07/2022 14:46:07 08/05/19 11 Tonsillectomy completed Corine Novak [facility] 10/17/2023 12:48:17 Imaging Results None recorded. Procedure Notes None recorded. Medical Equipment None Reported. Allergies Allergen ID Allergen Name Allergen Category Reaction Reaction Severity Criticality Documentation Date Start Date Code Code System Note Provider Name and Address Organization Details Recorded Time 62824 [facility] n Not available Not available Not available 04/01/20242001 RxNorm Corine Novak [facility], [facility] 18:25:07 Medications Name Sig Start Date [...] active Not Available Not Available Not Avai labangela Se--19 29 mg iron-1 mg tablet 10/16 completed Not Available Not Available Not Available Vitals Date Recorded Body weight Systolic blood pressure Diastolic blood pressure Provider Name and Address Organization Details Last Updated DateTime 04/29/2024 98269.1988 5 g 105 mm[Hg] 67 mm[Hg] Corine Novak [facility] 04/29/2024 16:29:59 Social History Question Answer Notes LastModified by Organizat ion Details LastModified Time Tobacco Smoking Status Never Smoker Sharon Eldridge sam, [facility] 05/01/2023 15:09:00 What Is Your Level [...] COVID-19 While That Case Was Ill? No [email or web address] Information not available 07/14/2021 In The 14 Days Before Symptom Onset, Have You Had Close Contact With A Person Who Is Under Investigation For COVID-19 While That Person Was Ill? No Information not available 07/14/2021 Have You Been To An Area Known To Be High Risk For COVID-19? No Information not available 07/14/2021 Are You Deaf Or Do You Have Serious Difficulty Hearing? No Information not available 03/15/2021 What Type Of Diet Are You Following? REGULAR Information not available 03/15/2021 Do You Or Have You Ever Used E-cigarettes Or Vape? Current User Of Electronic Cigarettes Information not available 02/19/2024 Do You Use Your Seat Belt Or Car Seat Routinely? Yes Information not available 03/15/2021 Are You Sexually Active? Yes [email or web address] Information not available 05/01/2023 Do You Have Smoke And Carbon Monoxide Detectors In Your Home? Yes Information not available 03/15/2021 Do You Feel Stressed (tense, Restless, Nervous, Or Anxious, Or Unable To Sleep At Night)? [id number] Information not available 03/15/2021 Do You Use Any Illicit Or Recreational Drugs? Yes Marijuana [email or web address] Information not available 02/19/2024 Do You Use Sunscreen Routinely? Yes Information not available 03/15/2021 Has Tobacco Cessation Counseling Been Provided? No [email or web address] Information not available 05/01/2023 Do You Or Have You Ever Used Any Other Forms Of Tobacco Or Nicotine? Yes [email or web address] Information not available 02/19/2024 Sex: Unknown Functional Status Question Answer Note LastModified by Organizat ion Details LastModified Time Do you have difficulty walking or climbing stairs? No Information not available 05/01/2023 Are you able to walk? [email or web address] Information not available 03/15/2021 Are you able to care for yourself? Yes [email or web address] Information not available 05/01/2023 Do you have difficulty dressing or bathing? No [email or web address] Information not available 05/01/2023 What is your [...] Y Breast Cancer N Blood Transfusion N Dermatologic Disorders N Lung [...] Diagnosis/Indication Diagnosis SNOMED-CT Code Diagnosis ICD10 Code 347445 Qi Garvin [place] [address],[facility] [place] [address] 04/01/2024 17:27:04 04/02/2024 07:54:22 screening 111553161 Z36.82 Z3A.12 [id number] Sakina Cantrell [facility] [address],[facility] [place] [address] 04/01/2024 17:27:30 04/02/2024 17:31:29 Gestation period, 12 weeks 00397899 Z3A.12 [id number] Sakina Cantrell [facility] [address],[facility] [place] [address] 04/29/2024 16:22:12 04/29/2024 16:50:41 Gestation period, 16 weeks 71170465 Z3A.16 Anxiety 36744109 F41.9 Health Concerns Section Related Observation LastModified by Organization Detai ls LastModified Time None Recorded Concern Status LastModified by Organization Details LastModified Time None Recorded Payers Encounter Date Sequence Insurance Name Policy Number Policy Shine Covered Member ID Shine Member ID Guarantor Name 04/29/2024 2 [facility] - DOS ON OR AFTER 21 (MEDICAID REPLACEMENT - HMO) Mae Frances [id number] Mae Frances OBGyn Episode Ob Episode Information Episode Created Date Number of Fetuses Patient Bloodtype Patient rh Status Prepregnancy Weight lbs Domestic Partner Domestic Partner Phone Father Name [facility]one Classifier Tender Status 04/01/20 24 1 A Positive 104 Stan Willyar d OPEN Fetus Data First Name Last Name Admitted to NICU Weight (g) Sex Living Outcome Pediatric Complications Fetus ID Race Codes Race Delivery Type [id number] Problems Problem Notes 32wk growth us Problem Name Start Date End Date Resolution Snomed Code Not e History of chlamydial infection 370858557 chl neg Alpha thalassemia 04/16/2024 87128164 s ilent carrier; low risk Low lying placenta 669323159 r esolved Kb Calculation KB Calculation Method [...] Weight in lbs Pre/Post Dialysis Refused Weight 104.172500177182 BP Diastolic BP Location Tested BP Systolic [...] Type Weight in lbs Pre/Post Dialysis Refused 105.581239932403 BP Diastolic BP Location Tested BP Systolic [...] Type Weight in lbs Pre/Post Dialysis Refused 109.009488828750 BP Diastolic BP Location Tested BP Systolic [...] Type Weight in lbs Pre/Post Dialysis Refused 118.983811290649 BP Diastolic BP Location Tested BP Systolic [...] Type Weight in lbs Pre/Post Dialysis Refused 122.633554244641 BP Diastolic BP Location Tested BP Systolic [...]
--- NOTE | 2024-08-21 08:15 | PM.OBTRLD ---
OB - Triage/Final Diagnosis Visit Information Comments/Additional reasons for admission: I have assessed the risk for this patient, Mae Frances, and determined that she would benefit from observation care. Evaluation Laboratory results: Laboratory Tests 07/26/24 02:28 Urine Color Yellow Urine Appearance Cloudy H Urine pH 7.5 Ur Specific [place] 1.017 Urine Protein Negative Urine Glucose (UA) Negative Urine Ketones 2+ H Ur Blood (Man) Negative Urine Nitrate Negative Urine Bilirubin Negative Urine Urobilinogen 0.2 Leukocyte Esterase Rfl Negative Urine RBC 0-2 Urine WBC 6-10 H Ur Squamous Epith Cells Moderate Urine Bacteria 3+ H Urine Casts 0-2 Final Diagnosis (1) Nausea and vomiting: Qualifiers: Vomiting type: unspecified Qualified Code(s): R11.2 - Nausea with vomiting, unspecified Code(s): R11.2 - Nausea with vomiting, unspecified Status: Inactive
== END 2024-07-26 06:02 | disposition home or self-care (01) ==
PROVIDERS: Admitting Provider Obstetrics & Gynecology; Visit Provider Obstetrics & Gynecology
DX: O21.2 Late vomiting of pregnancy (principal); Z3A.29 29 weeks gestation of pregnancy
CPT/HCPCS: 81001; 87086; 96374; 96375; G0378; G0379; J1200; J2405; J2765; J7121

== ENCOUNTER 2024-08-16 11:24 | Observation (INO) | payer OTHER, SELFPAY ==
--- NOTE | 2024-08-16 11:24 | OBADM ---
This patient, Mae Frances, admitted to the OB room OB Post 116 for observation. Patient/family oriented to hospital policies and general routines including ID bracelet, bed and alarms, visiting hours, pain management, procedures, bathroom and other care routines, personal items, smoking policy, room service/diet, and visiting hours. Patient/Family are encouraged to report perceived risks to care and to ask questions if they do not understand what they are told or what they should do.
[2024-08-16 12:00] VITALS: BP 118/74; PULSE 64
[2024-08-16 12:15] VITALS: BP 120/71; PULSE 74
[2024-08-16] MEDS: FAMOTIDINE 20 MG/2 ML VIAL IV PUSH (12:37)
[2024-08-16] MEDS: ONDANSETRON INJ 4 MG/2 ML VIAL IV PUSH ×2 (12:37→15:40)
[2024-08-16] MEDS: diphenhydrAMINE HCl INJ 50 MG/ML VIAL 25 MG IV PUSH ×2 (12:37→15:40)
[2024-08-16] MEDS: DEXTROSE 5%/LACTATED RINGERS 1,000 ML 999 ML IV CONT (12:44)
[2024-08-16 12:53] LABS: Basophils Absolute Auto 0.1 K/mm3 (0.0-0.1); Basophils Percent Auto 0.6 % (0.2-1.2); Eosinophils Percent Auto 0.1 % (0-4.4); Hematocrit 36.1 % (37.0-47.0); Hemoglobin 11.8 g/dL (12.0-15.0); Immature Granulocyte Absolute 0.27 K/mm3 (0.00-0.031); Immature Granulocyte Percent A 1.9 % (0-0.5); Lymphocytes Absolute Auto 1.77 K/mm3 (0.9-3.2); Lymphocytes Percent Auto 12.6 % (18.3-44.2); Mean Corpuscular HGB Conc 32.7 g/dl (32-36); Mean Corpuscular Hemoglobin 26.9 pg (26-34); Mean Corpuscular Volume 82.2 fl (80-100); Mean Platelet Volume 11.8 fl (7.4-10.4); Monocytes Absolute Auto 0.5 K/mm3 (0.1-0.6); Monocytes Percent Auto 3.6 % (2.6-8.5); Neutrophils Absolute Auto 11.4 K/mm3 (1.3-6.7); Neutrophils Percent Auto 81.2 % (45.5-73.1); Platelet Count Result 189 k/mm3 (150-375); Red Blood Count 4.39 M/mm3 (4.2-5.4); Red Cell Distribution Width 14.1 % (11.5-14.5); White Blood Count 14.1 K/mm3 (4.5-10.0)
[2024-08-16 13:02] LABS: Add Urine Microscopic? YES; Appearance Urine Cloudy (Clear); Bacteria Urine Rare /hpf; Bilirubin Urine Negative (Negative); Blood Urine Negative (Negative); Color Urine Yellow (Yellow); Glucose Urine UA Negative (Negative); Ketones Urine Negative (Negative); Leukocyte Esterase Ur Negative LEU/UL (Negative); Nitrate Urine Negative (Negative); Non Pathogenic Casts 0-2; Protein Urine Negative (Negative); RBC Urine 0-2 /hpf (0-2); Specific Grav Ur 1.014 (1.001-1.035); Squamous Epithelial Cell Urine Occasional /hpf (Few); Urobilinogen Urine 0.2 mg/dL (<2.0); WBC Urine 0-5 /hpf (0-3); pH Urine 8.5 (5.0-9.0)
[2024-08-16 13:16] LABS: Alanine Aminotransferase 19 U/L (6-35); Albumin Level 3.8 g/dL (3.5-5.1); Alkaline Phosphatase 99 U/L (38-126); Anion Gap 8 mmol/L (4-12); Aspartate Amino Transferase 38 U/L (14-36); Bilirubin,Total 0.7 mg/dL (0.2-1.3); Blood Urea Nitrogen 7 mg/dL (7-17); Carbon Dioxide 21 mmol/L (22-30); Chloride 105 mmol/L (98-107); Estimated Glomerular Filt Rate > 60; Glucose 89 mg/dL (65-110); Potassium 3.5 mmol/L (3.4-5.0); Sodium 134 mmol/L (137-145)
[2024-08-16] MEDS: DEXTROSE 5%/LACTATED RINGERS 1,000 ML 200 ML IV CONT (15:00)
--- NOTE | 2024-08-16 15:35 | PC.NURSE ---
Penny Cantrell notified of cont nausea, ok to give zofran early and repeat benadryl.
--- NOTE | 2024-08-16 17:38 | PC.NURSE ---
Patient called out and states that she is feeling better and wanting to go home. Penny Cantrell notified of patient feeling better and ok to dc home.
--- NOTE | 2024-08-17 17:00 | P.PNOB_ITS ---
OB - Triage/Final Diagnosis Visit Information Date of evaluation: 08/16/24 Reason for evaluation: other (gastritis) Comments/Additional reasons for admission: I have assessed the risk for this patient, Mae Frances, and determined that she would benefit from observation care. Evaluation Laboratory results: Laboratory Tests 08/16/24 12:47 WBC 14.1 H RBC 4.39 Hgb 11.8 L Hct 36.1 L MCV 82.2 MCH 26.9 MCHC 32.7 RDW 14.1 Plt Count 189 MPV 11.8 H Immature Gran % (Auto) 1.9 H Neut % (Auto) 81.2 H Lymph % (Auto) 12.6 L [place] % (Auto) 3.6 Eos % (Auto) 0.1 Baso % (Auto) 0.6 Lymph # (Auto) 1.77 [place] # (Auto) 0.5 Eos # (Auto) 0.0 Baso # (Auto) 0.1 Abs Immat Gran (auto) 0.27 H Absolute Neuts (auto) 11.4 H Absolute Nucleated RBC 0.000 Nucleated RBC % 0.0 Sodium 134 L Potassium 3.5 Chloride 105 Carbon Dioxide 21 L Anion Gap 8 BUN 7 Creatinine 0.49 L Estim Creat Clear Calc Not Reportable Estimated GFR > 60 Glucose 89 Calcium 9.0 Total Bilirubin 0.7 AST 38 H ALT 19 Alkaline Phosphatase 99 Total Protein 7.0 Albumin 3.8 Urine Color Yellow Urine Appearance Cloudy H Urine pH 8.5 Ur Specific [place] 1.014 Urine Protein Negative Urine Glucose (UA) Negative Urine Ketones Negative Ur Blood (Man) Negative Urine Nitrate Negative Urine Bilirubin Negative Urine Urobilinogen 0.2 Ur Leukocyte Esterase Negative Urine RBC 0-2 Urine WBC 0-5 Ur Squamous Epith Cells Occasional Urine Bacteria Rare Urine Casts 0-2
== END 2024-08-16 17:47 ==
PROVIDERS: Advanced Practice Midwife; Admitting Provider Obstetrics & Gynecology; Visit Provider Obstetrics & Gynecology
DX: O99.613 Diseases of the digestive system complicating pregnancy, third trimester (principal); K29.70 Gastritis, unspecified, without bleeding; Z3A.32 32 weeks gestation of pregnancy
CPT/HCPCS: 36415; 80053; 81001; 85025; 87086; 96374; 96375; 96376; G0378; G0379; J1200; J2405; J7121

== ENCOUNTER 2024-10-11 19:37 | Observation (INO) | payer OTHER, SELFPAY ==
[2024-10-11 20:00] VITALS: BMI 22.3
--- OUTSIDE RECORDS SUMMARY | 2024-10-11 21:08 | XMS_ITS | Patient Health Summary ---
Author Organization [facility] Address [address] [place] [place] [address] Care Team Providers Care Polysomnographic Technologist Name Role Phone None, Physician Primary Care Provider Unavailabl e Note from [facility],non-owned Affiliates and Associated Physician Practices is amultiple site organization consisting of ambulatory clinics and hospital sitesin [place], [place], [place] and [place]. This disclosure is being madepursuant to the Care Everywhere program and may not contain all information available regarding this patient. Last updated 18.[facility] Allergies * Bisacodyl(Rash) -Medium Criticality * Carbamazepine(Rash) [...] 104 03/25/2023 3:27 PM CDT Temperature 37.1 C (98.7 F) 03/25/2023 3:27 PM CDT Respiratory Rate 16 03/25/2023 3:27 PM CDT [...] CHILD LIFE(Performed 01/25/2012) * IP CONSULT TO SPECIAL TECHNICAL OPERATIONS OFFICER(Performed 01/25/2012) * BASIC METABOLIC PANEL (CALCIUM TOTAL)(Performed 01/22/2012) * XR ABD OBSTRUCTION SERIES 2VW(Performed 01/22/2012) Performed for Constipation * XR ABD OBSTRUCTION SERIES 2VW(Performed 12/21/2011) Performed for Constipation * IP CONSULT TO SPECIAL TECHNICAL OPERATIONS OFFICER(Performed 11/19/2011) * IGA BLOOD(Performed 11/19/2011) * TISSUE [...] AM Narrative 03/26/2023 8:23 AM CDT PROCEDURE: XR ABD OBSTRUCTION SERIES 2VW DATE/TIME [...] Urine Negative Negative 03/25/2023 6:24 PM CDT [facility] Urine URINE / Unknown 03/25/2023 6 :13 PM CDT 03/25/2023 6:24 PM CDT Latasha Mooney DO LAB - POINT OF CARE ORDERABLES Performing Organization Address City/[facility]/ZIP Co de Phone Number [facility] [address] [place] [address] * HCG URINE QUAL POCT NOTIFICATION (03/25/2023 4:58 PM CDT) Only the most recent of4 resultswithin the time period is included. Comment Notification Label Only - See Separate Report 03/25/2023 7:00 PM CDT [facility] Urine URINE / Unknown 03/25/2023 4 :58 PM CDT 03/25/2023 5:36 PM CDT Nithin Baig MD LAB - URINALYSIS ORD ERABLES Performing Organization Address City/[facility]/ZIP Co de Phone Number [facility] [address] [place] [address] * TISSUE TRANSGLUTAMINASE AB IGA (01/16/2023 4:11 AM CDT) Only the most recent of2 resultswithin the time period is included. Tissue Transglutaminase (tTG) Ab, IgA <2 0 - 3 U/mL 01/17/2023 11:02 PM CDT [facility] ([facility]) Comment: INTERPRETIVE INFORMATION: Tissue Transglutaminase (tTG) [...] positive predictive value for disease. Performed By: [employer] [address] [place] [id number] Fur Finisher: Luis Fernando Krishna MD, PhD Blood BLOOD SPECIMEN / Unknown Lab Venipuncture / Unknown 01/16/2023 4:11 AM CDT 01/16/2023 5:23 AM CDT Tory Jin MD LAB - SEROLOGY ERIN [facility] Between ([facility]) [address] [place] [address], [facility] * TSH REFLEX FREE T4 (01/16/2023 4:10 AM CDT) TSH 1.020 0.350 - 4.940 uIU/mL 01/16/2023 5:42 AM CDT [facility] Blood BLOOD SPECIMEN / Unknown Lab Venipuncture / Unknown 01/16/2023 4:10 AM CDT 01/16/2023 5:01 AM CDT Tory Jin MD LAB - CHEMISTRY ORD HUGH Performing Organization Address City/[facility]/ZIP Co de Phone Number [address] [address], [place] [phone] * IGA BLOOD (01/16/2023 4:10 AM CDT) Only the most recent of2 resultswithin the time period is included. IgA 184 61 - 356 mg/dL 01/16/2023 5:38 AM CDT [facility] Blood BLOOD SPECIMEN / Unknown Lab Venipuncture / Unknown 01/16/2023 4:10 AM CDT 01/16/2023 5:24 AM CDT Tory Jin MD LAB - CHEMISTRY ORD ERABLES [address] [address], [place] [phone] * XR ABDOMEN KUB (01/15/2023 1:07 AM CDT) Anatomical Region Laterality Modality Abdomen Radiographic Melina ging 01/15/2023 8:18 AM CDT Impressions 01/15/2023 8:28 AM CDT IMPRESSION: Nonobstructive bowel gas pattern with moderate colonic stool. > Dictated by Zenaida Aden DO (Reconditioning Associate) 01/15/2023 8:18 AM Xiomy Boyd MD have personally reviewed and interpreted this examination/study. > Interpreting Provider: Xiomy Levy MD on 01/15/2023 8:28 AM Narrative 01/15/2023 8:28 AM CDT PROCEDURE: XR ABDOMEN KUB DATE/TIME OF EXAM: [...] stool. > Dictated by Zenaida Aden DO (Reconditioning Associate) 01/15/2023 8:18 AM Xiomy Boyd MD have personally reviewed and interpreted this examination/study. > Interpreting Provider: Xiomy Levy MD on 01/15/2023 8:28 AM Manju Meyer MD DIAGNOSTIC IMAGING O RDERABLES * BASIC METABOLIC PANEL (CALCIUM TOTAL) (01/14/2023 11:42 PM CDT) Only the most recent of2 resultswithin the time period is included. BUN 7 7 - 26 mg/dL 01/15/2023 12:07 AM CDT [facility] Creatinine 0.74 0.56 - 0.96 mg/dL 01/15/2023 12:07 AM [facility] Sodium 139 136 - 145 mmol/L 01/15/2023 12:07 AM [facility] Potassium 3.5 3.5 - 4.5 mmol/L 01/15/2023 12:07 AM [facility] Chloride 105 98 - 107 mmol/L 01/15/2023 12:07 AM [facility] CO2 24 22 - 29 mmol/L 01/15/2023 12:07 AM [facility] Glucose 79 70 - 115 mg/dL 01/15/2023 12:07 AM [facility] Calcium 9.7 8.4 - 10.2 mg/dL 01/15/2023 12:07 AM [facility] Anion Gap 14 8 - 18 01/15/2023 12:07 AM [facility] BUN/Creatinine Ratio 9 7 - 23 01/15/2023 12:07 AM [facility] Osmolality Calculated 285 270 - 300 mOsm/kg 01/15/2023 12:07 AM [facility] eGFR by CKD-EPI >90 >=90 mL/min/1.7 3 m2 01/15/2023 12:07 AM [facility] Blood BLOOD SPECIMEN / Unknown Venipuncture / Unknown 01/14/2023 11:42 PM CDT 01/14/2023 11:54 PM CDT Manju Meyer MD LAB - CHEMISTRY ERIN [facility] Organization Address City/State/[facility] Co de Phone Number [facility] [address] [place] [phone], [facility] [phone] * (ABNORMAL) URINALYSIS REFLEX TO MICROSCOPIC NO CULTURE (04/19/2022 5:28 PM CDT) Color UA Red(A) Straw, Yellow 04/19/2022 5:50 PM [facility] Clarity UA Cloudy(A) Clear 04/19/2022 5:50 PM [facility] Specific [place] UA 1.010 1.005 - 1.030 04/19/2022 5:50 PM [facility] pH UA 8.0 5.0 - 8.0 pH 04/19/2022 5:50 PM [facility] Protein UA 1+(A) Negative 04/19/2022 5:50 PM [facility] Glucose UA Negative Negative 04/19/2022 5:50 PM [facility] Ketone UA Trace(A) Negative 04/19/2022 5:50 PM [facility] Bilirubin UA Negative Negative 04/19/2022 5:50 PM T [facility] Blood UA 3+(A) Negative 04/19/2022 5:50 PM [facility] Nitrite UA Negative Negative 04/19/2022 5:50 PM [facility] Leukocyte Esterase Negative Negative 04/19/2022 5:50 PM [facility] Urobilinogen UA Negative Negative mg/dL 04/19/2022 5:50 PM [facility] RBC UA >100(A) None Seen, 0-2, 3-5 /HPF 04/19/2022 5:50 PM [facility] WBC UA 21-50(A) None Seen, 0-5 /HPF 04/19/2022 5:50 PM [facility] Bacteria UA Trace(A) None /HPF 04/19/2022 5:50 PM [facility] Squamous Epithelial Cells UA 0-2 None Seen, 0-2, 3-5 /HPF 04/19/2022 5:50 PM [facility] Amorphous Crystals Moderate(A) None /HPF 04/19/2022 5:50 PM T [facility] Urine URINE SPECIMEN OBTAINED BY CLEAN CATCH PROCEDURE / Unknown Collection / Unknown 04/19/2022 5:28 PM CDT 04/19/2022 5:31 PM CDT [facility] - 04/19/2022 5:50 PM CDT Paty Saldivar PA-C LAB - URINALYSIS OR DERABLES [facility] [address] [place] [phone], [facility] [phone] * CT HEAD NON CONTRAST - suspected intracranial hemorrhage (04/19/2022 4:30 PM CDT) Anatomical Region Laterality Modality Head Computed Tomogra phy 04/19/2022 4:47 PM CDT Impressions 04/20/2022 7:54 AM CDT IMPRESSION: 1.No acute intracranial hemorrhage, midline shift, or significant mass effect. > Dictated by Russell Bliss MD (vice president residential solar sales) IDolores MD have personally reviewed and interpreted this examination/study. > Interpreting Provider: Dolores Porras MD on 04/20/2022 7:54 AM Narrative 04/20/2022 7:54 AM CDT PROCEDURE: CT HEAD WO CONTRAST, DATE/TIME OF EXAM: 04/19/2022 4:31 PM, LOCATION [facility] INDICATION: R11.2: Non-intractable vomiting with nausea, unspecified [...] DATE/TIME OF EXAM: 04/19/2022 4:31 PM, LOCATION [facility] INDICATION: R11.2: Non-intractable vomiting with nausea, unspecified [...] Dictated by Russell Bliss MD (vice president residential solar sales) IDolores MD have personally reviewed and interpretedthis examination/study. > Interpreting Provider: Dolores Porras MD on 04/20/2022 7:54 AM Charles Dickson MD CT ORDERABLES * (ABNORMAL) COMPREHENSIVE METABOLIC PANEL (04/19/2022 3:02 PM CDT) Only the most recent of4 resultswithin the time period is included. BUN 13 7 - 26 mg/dL 04/19/2022 3:39 PM [facility] Creatinine 0.72 0.56 - 0.96 mg/dL 04/19/2022 3:39 PM [facility] Sodium 143 136 - 145 mmol/L 04/19/2022 3:39 PM [facility] Potassium 3.2(L) 3.5 - 4.5 mmol/L 04/19/2022 3:39 PM [facility] Chloride 108(H) 98 - 107 mmol/L 04/19/2022 3:39 PM [facility] CO2 24 22 - 29 mmol/L 04/19/2022 3:39 PM [facility] Glucose 83 70 - 115 mg/dL 04/19/2022 3:39 PM [facility] Calcium 9.2 8.4 - 10.2 mg/dL 04/19/2022 3:39 PM [facility] Protein Total 7.2 6.0 - 8.3 g/dL 04/19/2022 3:39 PM [facility] Albumin 3.9 3.4 - 5.0 g/dL 04/19/2022 3:39 PM [facility] Bilirubin Total 0.9 0.2 - 1.2 mg/dL 04/19/2022 3:39 PM [facility] Alkaline Phosphatase 49 40 - 150 U/L 04/19/2022 3:39 PM [facility] ALT 39 5 - 55 U/L 04/19/2022 3:39 PM [facility] AST 35(H) 5 - 34 U/L 04/19/2022 3:39 PM [facility] Anion Gap 14 8 - 18 04/19/2022 3:39 PM [facility] BUN/Creatinine Ratio 18 7 - 23 04/19/2022 3:39 PM [facility] Osmolality Calculated 295 270 - 300 mOsm/kg 04/19/2022 3:39 PM [facility] Albumin/Globulin Ratio 1.2 1.1 - 2.3 04/19/2022 3:39 PM [facility] eGFR by CKD-EPI >90 >=90 mL/min/1.7 3 m2 04/19/2022 3:39 PM [facility] Blood BLOOD SPECIMEN / Unknown Venipuncture / Unknown 04/19/2022 3:02 PM CDT 04/19/2022 3:07 PM T Paty Saldivar PA-C LAB - CHEMISTRY ORD ERABLES [facility] [address] [place] [address], [facility] [phone] * HCG BETA BLOOD QUANTITATIVE (04/19/2022 3:02 PM CDT) Beta-hCG Total Quantitative <3 mIU/mL 04/19/2022 3:44 PM [facility] Comment: This assay is cleared for use in the early detection of only. It is not approved for any other uses such as tumor marker screening, tumor marker monitoring, etc. and should not be used for any other purposes. HCG Numeric Result Interpretation: Non- Females: < 5 mIU/mL Post-Menopausal Females: < 7 mIU/mL Blood BLOOD SPECIMEN / Unknown Venipuncture / Unknown 04/19/2022 3:02 PM CDT 04/19/2022 3:07 PM CDT Paty Saldivar PA-C LAB - CHEMISTRY ORD ERABLES [address] [address], [facility] [phone] * (ABNORMAL) CBC W AUTO DIFFERENTIAL (01/16/2022 5:10 PM CDT) WBC 14.5(H) 4.4 - 10.7 x10E9/L 01/16/2022 5:16 PM CDT [facility] WBC Corrected 01/16/2022 5:16 PM CDT [facility] RBC 4.80 3.80 - 5.20 x10E12/L 01/16/2022 5:16 PM CDT [facility] Hemoglobin 12.9 12.0 - 15.6 gm/dL 01/16/2022 5:16 PM CDT [facility] Hematocrit 38.9 35.9 - 45.5 % 01/16/2022 5:16 PM CDT [facility] MCV 81.0 80.7 - 98.3 fl 01/16/2022 5:16 PM CDT [facility] MCH 26.9 26.7 - 34.0 pg 01/16/2022 5:16 PM CDT [facility] MCHC 33.2 30.8 - 35.9 gm/dL 01/16/2022 5:16 PM CDT [facility] Platelet Count 377 153 - 416 x10E9/L 01/16/2022 5:16 PM CDT [facility] RDW-CV 13.4 12.1 - 14.9 % 01/16/2022 5:16 PM CDT [facility] MPV 9.9 9.4 - 12.9 fl 01/16/2022 5:16 PM CDT [facility] Neutrophils % 79.3(H) 44.0 - 73.0 % 01/16/2022 5:16 PM CDT [facility] Lymphocytes % 14.4(L) 20.0 - 43.0 % 01/16/2022 5:16 PM CDT [facility] Monocytes % 5.0 5.0 - 13.0 % 01/16/2022 5:16 PM CDT [facility] Eosinophils % 0.3 0.0 - 6.0 % 01/16/2022 5:16 PM CDT [facility] Basophils % 0.5 0.0 - 2.0 % 01/16/2022 5:16 PM CDT [facility] Immature Granulocytes 0.5 0 - 1 % 01/16/2022 5:16 PM CDT [facility] Neutrophil Absolute 11.48(H) 2.01 - 7.14 x10E9/L 01/16/2022 5:16 PM CDT [facility] Lymphocytes Absolute 2.08 1.07 - 3.94 x10E9/L 01/16/2022 5:16 PM CDT [facility] Monocytes Absolute 0.73 0.26 - 1.07 x10E9/L 01/16/2022 5:16 PM CDT [facility] Eosinophils Absolute 0.04 0 - 0.47 x10E9/L 01/16/2022 5:16 PM CDT [facility] Basophils Absolute 0.07 0 - 0.08 x10E9/L 01/16/2022 5:16 PM CDT [facility] Immature Granulocytes Absolute 0.07(H) 0.00 - 0.06 x10E9/L 01/16/2022 5:16 PM CDT [facility] nRBC Auto 0 /100 WBC 01/16/2022 5:16 PM T [facility] Blood BLOOD SPECIMEN / Unknown Venipuncture / Unknown 01/16/2022 5:10 PM CDT 01/16/2022 5:13 PM CDT Star Godinez TRUCK HOP-CLINICAL STUDY MANAGER LAB - HEMATOLOGY ORDERABLES [facility] [address] [address] * CK BLOOD (01/16/2022 5:10 PM CDT) CK 104 29 - 168 U/L 01/16/2022 5:31 PM CDT [facility] Blood BLOOD SPECIMEN / Unknown Venipuncture / Unknown 01/16/2022 5:10 PM CDT 01/16/2022 5:13 PM CDT Star Godinez APRN-CLINICAL STUDY MANAGER LAB - CHEMISTRY ORDERABLES [facility] [address] [address] * IMAGING/RADIOLOGY/XRAY RESULTS ORDER (04/27/2016 10:46 PM [...] MANAGEMENT (02/01/2012 1:38 PM CDT) Narrative Kamini Sharif, RN, RN - 02/01/2012 1:38 PM CDT Kamini Sharif RN, RN 02/01/2012 1:38 PM Referral made to Bree @ [facility] [phone] re: home visits. Kamini Sharif RN-Case Management [phone] Procedure Note Kamini Sharif, RN, RN - 02/01/2012 1:38 PM CDT Referral made to Bree @ [facility] [phone] re: home visits. Kamini Sharif RN-Case Management [phone] Swapna Guy MD INPATIENT ANCILLARY CONSULT * IP CONSULT TO PEDIATRIC SURGERY (01/31/2012 12:04 PM CDT) Narrative Geraldo Worley MD - 01/31/2012 12:04 PM CDT Carroll Montilla MD 01/30/2012 6:02 PM Pediatric General Surgery History and Physical Patient's Primary Care Physician: Geo Johns MD Name: Mae Frances Age: 11 y.o. 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 Has tried Miralax, mag citrate, and enemas [...] rectal biopsy. Past Medical History Diagnosis Date Headache started approximately 2 years ago S/P colonoscopy age 6y/o ADHD (attention deficit hyperactivity disorder) Sensory integration disorder Bipolar affective ODD (oppositional defiant disorder) Aggression Learning disability Constipation, chronic Past Surgical History Procedure Date Tonsillectomy 2009 Family History Problem Relation Age of Onset Migraine Mother ADHD Maternal Uncle Also patient's cousin Bipolar Disorder Maternal Uncle Also patient's cousin OTHER Cousin with chronic constipation Social History Occupational History Not on file. Social History Main Topics Smoking status: Never Smoker Smokeless tobacco: Not on file Alcohol Use: No Drug Use: No Sexually Active: Prescriptions prior to admission Medication Sig Dispense Refill polyethylene glycol 3350 (MIRALAX) powder Take 17 g by mouth once daily. 850 g 0 QUEtiapine (SEROQUEL) 100 MG tablet Take 100 mg by mouth 3 times daily. sertraline (ZOLOFT) 50 MG tablet Take 50 mg by mouth daily. Take 1 1/2 tabs Daily fleet enema (FLEET) 7-19 GM/118ML enema Insert 1 Enema into the rectum once as needed for Constipation for 1 dose. 1 Enema 0 dexmethylphenidate (FOCALIN) 10 MG tablet Take 10 mg by mouth 3 times daily. Magnesium Hydroxide (MILK OF MAGNESIA PO) Take by mouth. Allergies Allergen Reactions Tegretol (Carbamazepine) Rash Stimulant Laxative (Bisacodyl) Rash Review of Systems [...] Pulse: 60 68 118 100 Temp: 97.8 F 97.8 F 97 F Resp: 14 07 24 14 Weight: SpO2: General appearance: No acute [...] Pulse: 68 118 100 116 Temp: 97.8 F 97 F 97 F Resp: 12 14 24 Weight: SpO2: Intake/Output Summary (Last [...] WBC,RBC,HGB,HCT,MCV,MCH,MCHC,RDW,PLTCOUNT,SEGPCT,BANDPCT,LYMPHPCT, ATYPLYMPHPCT,MONOCYTPCT,EOSINPCT,BASOPHILPCT,METAPCT,MYELOCYTPCT,P ROMELOPCT,BLASTPCT,PLASMAPCT,NRBC,GRANPCT,MONOCYTPCT,EOSINPCT,BASO PHILPCT in the last 21186 hours Assessment and Plan 11 yo female [...] AM CDT) Case Report Surgical Pathology Report Case: [id number] Authorizing Provider: Patric Good MD Ordering Provider: Geraldo Worley MD Ordering Location: [facility] Collected: 01/31/2012 11:57 AM Pathologist: Berenice Wilson MD Received: 01/31/2012 12:56 PM Signed Out: 02/01/2012 5:08 PM (Final) Specimen: Rectum 02/01/2012 5:08 PM [facility] Final Diagnosis RECTUM, SUCTION BIOPSY: - GANGLION CELLS PRESENT (SEE COMMENT). COMMENT: While the size of this biopsy is adequate in the usual age group (neonates) in which suction biopsy is performed, it is suboptimal for a 11 year old patient in that it contained only mucosa, muscularis mucosa and a thin superficial portion of the submucosa. 02/01/2012 5:08 PM [facility] Clinical History The patient is a 11-year-old girl, with chronic constipation, who underwent fecal disimpaction, proctosigmoidoscopy and rectal biopsy to rule-out Hirschsprung's disease. 02/01/2012 5:08 PM [facility] Gross Description The specimen is received fresh in a single container, labeled with the patient's name, Mae Lopezre and rectal biopsy and consists of a [...] for acetylcholinesterase stain. (GAILF/roberto) 02/01/2012 5:08 PM [facility] Microscopic Description 10 H&E. Examination of 38 levels of the rectal suction biopsy revealed two ganglion cells; there are no hypertrophic nerve trunks. 02/01/2012 5:08 PM [facility] Disclaimer The performance characteristics of all immunohistochemical and indirect immunofluorescence stains (if any) cited in this report were determined by the Histopathology Laboratory of [facility] (immunohistochemistry) or the Histology Laboratory of [facility] (indirect immunofluorescence) in compliance with CLIA `88 regulations. Some of these tests rely on the use of analyte-specific reagents and are subject to specific labeling requirements by the FDA. Such tests were developed by the Histopathology Laboratory of [facility] or the Histology Laboratory of [facility] and have not been cleared or approved by the FDA. The FDA has determined that such clearance or approval is not necessary. These tests are used for clinical purposes and should not be regarded as investigational or for research. This case has been personally reviewed and interpreted by the attending (teaching) pathologist. 02/01/2012 5:08 PM CDT [facility] Miscellaneous samples (specimen) ENTIRE RECTUM / Unknown 01/31/2012 11:57 AM CDT 01/31/2012 12:56 PM CDT Patric Good MD LAB - PATHOLOGY/CYTO LOGY ORDERABLES [facility] [address] [facility] [place] [address] * FL LOWER GI WATER SOLUBLE (01/29/2012 [...] 01/25/2012 1:17 PM CDT Sakina Lopez, PHD 01/25/2012 1:17 PM Inpatient Psychology Consultation Name: Mae Frances Age: 11 y.o. 3 m.o. : 2000 Medical Record: [id number] I attempted to interview pt; however, she [...] (reportedly for aggression) and has learning disabilities. Mea has also had at least one psychiatric hospitalization and is on numerous psych medications. Given the chronicity of feeding issues, constipation, and repeated hospitalizations, I would recommend a level of care that would permit these problems to be addressed with sufficient intensity to attempt to break the cycle. Kathy Booker should be considered for follow-up care at discharge. Family preservation services through [facility] of Children and Family services may also be able to provide in-home therapy and parent training necessary to change chronic maladaptive patterns. Dr. Bree Hermosillo is available for consultation this afternoon, pager: [phone] Sakina Lopez, PhD Clinical Psychologist [place] License [id number] Procedure Note Sakina Lopez, PhD - 01/25/2012 12:53 PM CDT Inpatient Psychology Consultation Name: aMe Frances Age: 11 y.o. 3 m.o. : 2000 Medical Record: [id number] I attempted to interview pt; however, she [...] Booker should be considered for follow-up care atdischarge. [facility] may also be able to provide in-home therapyand parent training necessary to change chronic maladaptive patterns. Dr. Bree Hermosillo is available for consultation this afternoon, pager:[phone] Sakina Lopez, PhD Clinical Psychologist [place] License [id number] Swapna Guy MD INPATIENT CONSULT OR DERABLES * IP CONSULT TO CHILD LIFE (01/25/2012 12:56 PM CDT) Ginger Kumar CCLS - 01/25/2012 12:56 PM CDT DHRUV Lanier 01/25/2012 12:[address] Guy informed Child Life about patient's need for behavior modification. Child Life created incentive chart and explained chart and consequences to patient. Patient acknowledged she understood information. Chart is located in patient's hard chart and in patient's room. [facility] ASSESSMENT [facility] [id number] Objective 1. Objective Information - Introduction: Patient is familiar to Child Life Services;Comfort measures offered 2. Diversional/Play Activities: Bedside activities provided;Diversional activities provided General Information Assessment Feelings: Expresses normal fear and anxiety.;Expresses anxiety related to pain. Assessment: Patient adjusting well to hospitalization at this time. Plan Child Life plan of care: Patient will be a primary followed by this College Specialist.;Provide developmentally appropriate therapeutic activities.;Provide relaxation, distraction and soothing techniques.;Continue to assess patient needs for changes.;Child Life Services will conduct individual sessions with patient.;Encourage patient to attend playroom/teen activity.;Encourage peer interactions (if age-appropriate).;Provide opportunity for expression of emotions. DHRUV Lanier 01/25/2012 12:53 PM Procedure Note Ginger Wilkerson CCLS - 01/25/2012 12:[address] Guy informed [facility] about patient's need for behaviormodification. [facility] ExpoPromoter created incentive chart and explained chart andconsequences to patient. Patient acknowledged she understood information.Chart is located in patient's hard chart and in patient's room. [facility] [id number] Objective 1. Objective Information - Introduction: Patient is familiar to [facility];Comfort measures offered 2. Diversional/Play Activities: Bedside activities provided;Diversionalactivities provided General Information Assessment Feelings: Expresses normal fear and anxiety.;Expresses anxiety related topain. Assessment: Patient adjusting well to hospitalization at this time. Plan Child Life plan of care: [facility] will be a primary [facility]Provide developmentally appropriate therapeuticactivities.;Provide relaxation, distraction and soothingtechniques.;Continue to assess patient needs for changes.;Child LifeServices will conduct individual sessions with patient.;Encourage patientto attend playroom/teen activity.;Encourage peer interactions (ifage-appropriate).;Provide opportunity for expression of emotions. DHRUV Lanier 01/25/2012 12:53 PM Swapna Guy MD INPATIENT CONSULT OR DERABLES * IP CONSULT TO SPECIAL TECHNICAL OPERATIONS OFFICER (01/25/2012 12:09 PM CDT) Only the most recent of2 resultswithin the time period is included. Narrative Queenie Pinedakenna Evans LCSW - 01/25/2012 12:09 PM CDT Tory PinedaAGGIE 01/25/2012 12:09 PM New consult received on pt today, worker in contact with Sakina Funes, Psychology, with Dr Swapna Guy, with 3 So RN and telephoned pt's mother Mother coming in later today, will meet with her about care and treatment of pt with chronic constipation. Mother state she is in the process of moving from [place] to [place], [place] Tory CristinaPetra Pineda INDUSTRIAL RADIOGRAPHER [phone] Procedure Note Queenie Pinedan CristinaAGGIE - 01/25/2012 12:06 PM CDT New consult received on pt today, worker in contact with Sakina FunesPsychology, with Dr Swapna Guy, with 3 So RN and telephoned pt'smother Mother coming in later today, will meet with her about care and treatmentof pt with chronic constipation. Mother state she is in the process ofmoving from [place] to [place], [place] Tory CristinaPetra Pineda [facility] [phone] Swapna Guy MD INPATIENT ANCILLARY CONSULT * CULTURE ANAEROBE (09/29/2009 4:00 PM BOXING AND PRESSING SUPERVISOR) Report [facility] Comment: Final - PROMPT RESP LEFT RETROPHARYNGEL ABSCESS GRAM STAIN Moderate WBC's Moderate RBC'S No organisms seen CULTURE PEPTOSTREPTOCOCCUS ANAEROBIUS Rare PREVOTELLA INTERMEDIA Rare Beta Lactamase Test, Positive SPECIMEN FROM ABSCESS / Unknown 09/29/2009 4:00 PM BOXING AND PRESSING SUPERVISOR Shena Abbott MD LAB - MICROBIOLOGY O RDERABLES [facility] * CULTURE ABSCESS (09/29/2009 4:00 PM BOXING AND PRESSING SUPERVISOR) Report [facility] Comment: Final - PROMPT RESP LEFT RETROPHARYNGEAL ABSCESS GRAM STAIN Heavy RBC'S Moderate WBC's No organisms seen CULTURE ALPHA HEMOLYTIC STREPTOCOCCUS Moderate Two colony types NON HEMOLYTIC STREP Rare SPECIMEN FROM ABSCESS / Unknown 09/29/2009 4:00 PM BOXING AND PRESSING SUPERVISOR Shena Abbott MD LAB - MICROBIOLOGY O RDERAIRMA Performing Organization Address [facility] Co de Phone Number [facility] * GLUCOSE (09/29/2009 12:50 PM BOXING AND PRESSING SUPERVISOR) Glucose 90 70 - 106 mg/dl [facility] Specimen Type/Condition [facility] BLOOD SPECIMEN / Unknown 09/29/2009 12:50 PM BOXING AND PRESSING SUPERVISOR Libra Somers DO LAB - CHEMISTRY ERIN AGUILAR Performing Organization Address [facility] de Phone Number [facility] * (ABNORMAL) LYTES (NA K CL CO2) BLOOD (09/29/2009 12:50 PM BOXING AND PRESSING SUPERVISOR) Sodium 136(L) 137 - 145 mmol/L [facility] Potassium 4.2 3.5 - 5.1 mmol/L [facility] Chloride 97(L) 98 - 107 mmol/L [facility] CO2 28.6(H) 18 - 27 mmol/L [facility] Specimen Type/Condition [facility] BLOOD SPECIMEN / Unknown 09/29/2009 12:50 PM BOXING AND PRESSING SUPERVISOR Libra Somers DO LAB - CHEMISTRY ERIN AGUILAR Performing Organization Address [facility] Co de Phone Number [facility] * CREATININE BLOOD (09/29/2009 12:50 PM BOXING AND PRESSING SUPERVISOR) Creatinine 0.38 0.03 - 0.59 mg/dl [facility] Specimen Type/Condition [facility] BLOOD SPECIMEN / Unknown 09/29/2009 12:50 PM BOXING AND PRESSING SUPERVISOR Libra Cristina Somers DO LAB - CHEMISTRY ERIN AGUILAR Performing Organization Address [facility] Co de Phone Number [facility] * BUN (09/29/2009 12:50 PM BOXING AND PRESSING SUPERVISOR) BUN 10.5 7 - 18 mg/dl [facility] Specimen Type/Condition [facility] BLOOD SPECIMEN / Unknown 09/29/2009 12:50 PM BOXING AND PRESSING SUPERVISOR Libra Cristina Somers DO LAB - CHEMISTRY ERIN AGUILAR Performing Organization Address [facility] de Phone Number [facility] * T4 FREE DIRECT DIALYSIS (08/24/2009 12:00 PM BOXING AND PRESSING SUPERVISOR) T4 Free Direct Dialysis 1.4 1.0 - 2.0 ng/dl [facility] BLOOD SPECIMEN / Unknown 08/24/2009 12:00 PM BOXING AND PRESSING SUPERVISOR Narrative Resulting Agency Comment Performed By [employer] [address] [place] [phone] Alyssa Lee MD LAB - CHEMISTRY ERIN AGUILAR Performing Organization Address [facility] Co de Phone Number [facility] * SOMATOMEDIN C (IGF-1) (08/24/2009 12:00 PM BOXING AND PRESSING SUPERVISOR) Somatomedin C 554 ng/ml BERNIE AGUILA [facility] Reference Range CARD INAL [facility] Comment: Pediatric Endocrine Laboratory Reference Ranges MALE FEMALE AGE RANGE MEAN RANGE MEAN (Years) (ng/ml) (ng/ml) (ng/ml) (ng/ml) 3.0 34-405 219 38-266 152 3.5 26-451 238 26-339 182 4.0 27-470 248 24-382 203 4.5 33-470 251 29-408 218 5.0 42-458 250 39-423 231 5.5 51-440 246 50-434 242 6.0 60-422 241 62-446 254 6.5 67-407 237 73-462 267 7.0 72-397 235 82-484 283 7.5 75-396 235 90-512 301 8.0 76-404 240 97-547 322 8.5 74-423 249 102-588 345 9.0 72-452 262 107-632 370 9.5 69-490 280 113-678 395 10.0 67-537 302 119-723 421 10.5 66-591 328 126-765 446 11.0 67-649 358 136-802 469 11.5 70-710 390 147-832 490 12.0 77-770 423 161-853 507 12.5 87-826 457 177-865 521 13.0 101-876 488 195-866 530 13.5 118-916 517 212-858 535 14.0 137-942 540 228-842 535 14.5 157-952 555 240-822 531 15.0 177-942 560 244-803 524 15.5 194-910 552 237-791 514 16.0 205-851 528 215-794 505 16.5 206-764 485 171-823 497 17.0 194-646 420 98-889 494 ADULT MALE FEMALE (years) Absolute Range Mean Absolute Range Mean 18-20 197.0-956.0 489.0 193.0-575.0 367.9 20-23 215.0-628.0 420.1 110.0-521.0 288.9 23-25 169.0-591.0 320.7 129.0-480.0 274.9 25-30 119.0-476.0 236.7 96.0-502.0 253.5 30-40 100.0-494.0 211.9 130.0-354.0 217.7 BLOOD SPECIMEN / Unknown 08/24/2009 12:00 PM BOXING AND PRESSING SUPERVISOR Narrative Resulting Agency Comment Performed By [facility] [address] [place] [address] Alyssa Lee MD LAB - CHEMISTRY ERIN AGUILAR [facility] * XR BONE AGE HAND AND WRIST (08/24/2009 11:54 AM BOXING AND PRESSING SUPERVISOR) Anatomical Region Laterality Modality Upper Extremity, Wrist / Hand Ot her 08/24/2009 11:5 4 AM BOXING AND PRESSING SUPERVISOR Narrative 08/24/2009 2:11 PM BOXING AND PRESSING SUPERVISOR Bone age- 7 years 9 months Method- Greulich and Judith Chronologic age- 8 years 10 months Standard deviation- 8.3 months Skeletal maturation- Normal Carla Dumont MD (resident). Reading Jerry BARRIENTOS MD Releasing Jerry BARRIENTOS MD Released Date Time- 08/24/091411 Link Trainersuma DUMONT MD - ALYSSA LEE,ALYSSA CASTAÑEDA- JESUS,ALYSSA MOJICA- GEO MATA SCP- Procedure Note Rian Barrientos - 08/24/2009 Bone age- 7 years 9 months Method- Valentínulich and Judith Chronologic age- 8 years 10 months Standard deviation- 8.3 months Skeletal maturation- Normal Carla Dumont MD (resident). Reading Jerry BARRIENTOS MD Releasing Jerry BARRIENTOS MD Released Date Time- 08/24/091411 Pat DUMONT MD ADM- KANAFANI,NADIM ATT- KANAFANI,NADIM ORD- KANAFANI,NADIM CON- PCP- GEO JOHNS SCP- Alyssa Lee MD DIAGNOSTIC IMAGING O RDERABLES * GROSS + MICRO EXAM (06/20/2009 11:10 AM BOXING AND PRESSING SUPERVISOR) Only the most recent of2 resultswithin the time period is included. Result CASE NUMBER [id number] [facility] RE[facility] Comment: ORDERING PHYSICIAN BK KENDALL SPECIMEN TYPE Rectal Biopsy-Full Thickness CLINICAL HISTORY The patient is a 8-year-old girl with constipation who underwent manual disimpaction of the rectum, colonic irrigation, and full thickness rectal biopsy. GROSS DESCRIPTION Submitted fresh in one container for gross and microscopic examination, labeled with the patient's name, Mae Frances, and rectal biopsy, full thickness is a 1.4 x 1 x 0.2 cm roughly rectangular, soft, pink-quintero tissue fragment. A portion of the specimen is submitted for paraffin sectioning as A1. A portion of the specimen is frozen for acetylcholinesterase stain as A2. (CT/nab) MICROSCOPIC DESCRIPTION 5 H/E 5 FS H/E 6 acetylcholinesterase stains. DIAGNOSIS DIAGNOSIS RECTAL BIOPSY -GANGLION CELLS PRESENT IN SUBMUCOSA. -NO SMOOTH MUSCLE LAYERS IDENTIFIED. This case has been personally reviewed and interpreted by the attending (teaching) pathologist. Link Trainer WANG SCHROEDER PATHOLOGIST Cory Stewart M.D. ELECTRONICALLY DARRYL Cory Stewart MISCELLANEOUS SAMPLES / Unknown 06/20/2009 11:10 AM BOXING AND PRESSING SUPERVISOR 06/20/2009 12:23 PM BOXING AND PRESSING SUPERVISOR Historical Provider LAB - PATHOLOGY/C YTOLOGY ORDERABLES [facility] RE[facility] Care Teams Polysomnographic Technologist Relationship Specialty Start Date End Date None, Physician [address] [place] [address] PCP - General 03/25/23
--- OUTSIDE RECORDS SUMMARY | 2024-10-11 21:08 | XMS_ITS | Patient Health Record ---
Author Organization [facility] Address [address] [place] [address] Care Team Providers Care Six Color Press Operator Name Role Phone Cesilia Ibanez Primary Care Provider eCsilia Ibanez Unavailable [phone] Allergies Allergen (clinical drug ingredient) Drug/Non Drug Allergy documented on EMR Reaction Allergy Type Onset Date Status carbamazepine Tegretol Unknown Drug Allergy Act phill Reason For Referral No Information Medications Medication SIG (Take, Route, Fr equency, Duration) Notes Start Date End Date Status Wellbutrin 75 MG 1 tablet Orally Twic e a day for 30 day(s) 10/10/2021 Active Social History Sex Assigned At : Social History Observation Description Sex Assigned At Female Problems Problem Type SNOMED Code ICD Code Onset Dates Problem Status W/U Status Risk Notes Problem 434708917 ADHD (attention deficit hyperactivity disorder) (F90.9) Active confirmed Problem 29659227 Bipolar 1 disorder, mixed (F31.60) Active confirmed Rule out Problem 041150892 DMDD (disruptive mood dysregulation disorder) (F34.81) Active confirmed Plan Of Treatment No Information Insurance Providers Payer Name Payer Address Payer Phone Subscriber Number Group Number Insured Name Patient Relationship to Insured Coverage Start Date Coverage End Date [facility] Attn Claims Department [address] [place] [phone] [id number] Yvrose Mae Self - patient is the insured 9 [facility] Attn Claims Department [address] [place] [phone] [id number] Mae Frances Self - patient is the insured 1 Medical (General) History Surgical History Surgery Date(Month/Year) Hospitalization History Reason Date(Month/Year)
--- OUTSIDE RECORDS SUMMARY | 2024-10-11 21:08 | XMS_ITS | Referral Summary ---
Author Organization [facility] Address [address] [place] [address] Care Team Providers Care Naval Aircrewman Mechanical Name Role Phone None, Physician Primary Care Provider Unavailabl e Source Comments [facility],non-owned Affiliates and Associated Physician Practices is amultiple site organization consisting of ambulatory clinics and hospital sitesin [place], [place], [place] and [place]. This disclosure is being madepursuant to the Care Everywhere program and may not contain all information available regarding this patient. Last updated 18.[facility] Allergies Active Allergy Reactions Criticality Noted Date [...] as an outpatient with Dr. Lomas at [facility] Constipation, unspecified constipation type 01/03 Assessment & [...] 09/17/2018 Assessment & Plan (09/17/2018 8:55 PM INDUSTRIAL ENGINEERING TECHNOLOGIST): 17 y.o. F with DMDD, Bipolar disorder [...] F/u with [facility] Booker on Saturday Jade, Garment Sorter at Kathy ([phone]) Counseling regarding goals of care 01/28/2012 Overview [...] Overview (03/26/2012): Followed by Dr. Nilsa Rivera @[phone], ALT# [phone]. Spoken to during the 01/24 admission to [...] therapist until a bed is available at [facility]. 03/24/[address] Nilsa Cartagena-Abel @[phone], ALT# [phone], Psychiatrist taking care of Mae. She informed [...] bloody bowel movements. Social/Behavioral for placement at [facility] was explored but no bed was available. [...] 12:15 AM 01/16/2023 3:33 PM Care Teams Naval Aircrewman Mechanical Relationship Specialty Start Date End Date None, Physician [address] [place] [address] PCP - General 03/25/23
--- OUTSIDE RECORDS SUMMARY | 2024-10-11 21:08 | XMS_ITS | Encounter Summary ---
Author Organization [facility] Address [address] [place] [address] Care Team Providers Care Clinical Rehab Specialist Name Role Phone Unavailable Primary Care Provider Unavailabl e Encounter Details Date Type Department Care Team (Late st Contact Info) Description [address] [facility] Pediatrics - [facility] [address] [address] [address] Radhika Emmanuel MD NO ADDRESS ON FILE Social History Tobacco Use Types Packs/Day Years Used Date Smoking Tobacco: Never Assessed Comments Unknown Sex and Gender Information Value Date Recorded Sex Assigned at Not on file Legal Sex Female 2:53 AM SOLUTIONS 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
--- OUTSIDE RECORDS SUMMARY | 2024-10-11 21:08 | XMS_ITS | Referral Summary ---
Author Organization [facility] Address [facility] [place] [address] Care Team Providers Care Marine Cargo Surveyor Name Role Phone No, Physician Primary Care Provider [phone] Allergies Active Allergy Reactions Criticality Noted Date [...] on file Legal Sex Female 7:24 PM TECHNOLOGY SUPPORT ANALYST Gender Identity Not on file Sexual Orientation Not on file Last Filed Vital Signs Vital Sign Reading Time Taken Comments Blood Pressure 102/54 04/16/2024 5:35 AM CDT Pulse 89 04/16/2024 5:35 AM CDT Temperature 36.6 C (97.9 F) 04/16/2024 3:10 AM CDT Respiratory Rate 16 04/16/2024 3:10 AM CDT Oxygen Saturation 99% 04/16/2024 5:35 AM CDT Inhaled Oxygen Concentration - - Weight 47.1 kg (103 lb 13.4 oz) 04/16/2024 3:10 AM CDT Height - - Body Mass Index - - Plan of Treatment Not on file Insurance [facility] [place] Care Teams Marine Cargo Surveyor Relationship Specialty Start Date End Date No, Physician PCP - General 04/16/24
--- OUTSIDE RECORDS SUMMARY | 2024-10-11 21:08 | XMS_ITS | Encounter Summary ---
Author Organization [facility] Address [address] [place] [address] Care Team Providers Care Machine Sign Writer Name Role Phone Unavailable Primary Care Provider Unavailabl e Encounter Details Date Type Department Care Team (Latest Contact Info) Description 2002 Outpatient Historical [facility] Radhika Bojorquez MD NO ADDRESS ON FILE CONGENITAL HYPOTHYROIDSM (Primary Dx) Social History Tobacco Use Types Packs/Day Years Used Date Smoking Tobacco: Never Assessed Comments Unknown Sex and Gender Information Value Date Recorded Sex Assigned at Not on file Legal Sex Female 2:53 AM JOB DEVELOPMENT SPECIALIST Gender Identity Not on file Sexual Orientation Not on file documented as of this encounter Plan of Treatment Not on file documented as of this encounter Visit Diagnoses Diagnosis Congenital hypothyroidism- Primary documented in this encounter
--- OUTSIDE RECORDS SUMMARY | 2024-10-11 21:08 | XMS_ITS | Encounter Summary ---
Author Organization [facility] Address [address] [place] [address] Care Team Providers Care Etcher Printed Circuit Boards Name Role Phone Unavailable Primary Care Provider Unavailabl e Encounter Details Date Type Department Care Team (Late st Contact Info) Description 2002 Outpatient Historical [facility] Pediatrics - [facility] [address] [address] Rodger Verma MD [id number] [place] [address] Social History Tobacco Use Types Packs/Day Years Used Date Smoking Tobacco: Never Assessed Comments Unknown Sex and Gender Information Value Date Recorded Sex Assigned at Not on file Legal Sex Female 2:53 AM PATTERN RULER Gender Identity Not on file Sexual Orientation Not on file documented as of this encounter Plan of Treatment Not on file documented as of this encounter Visit Diagnoses Not on filedocumented in this encounter
--- OUTSIDE RECORDS SUMMARY | 2024-10-11 21:08 | XMS_ITS | Data Portability ---
Author Organization [facility] [place] Address [address] [place] [place] [address] Assessment Encounter Date Assessment Date Assessment LastModified by Organization Details LastModified Time 09/23/2024 09/23/2024 Patient is __37_weeks . Discussed plan. Not available 09/23/2024 14:41:37 09/30/2024 09/30/2024 Patient is _38__weeks . Discussed plan. Not available 09/30/2024 14:33:25 10/07/2024 10/07/2024 Patient is _39__weeks . Discussed plan. Not available 10/07/2024 10:22:25 Plan of Treatment Reminders Order Date Submit Date Provider Last Modified By Organization Details Last Modified Time Details Appointments None record ed. Lab None record ed. Referral None record ed. Procedures None record ed. Surgeries None record ed. Imaging non-st ress test 025 10/02/19 25 [email or web address] [place], [address], [place], [address], 17:29:24 [place], obstet loco, follow -up 025 09/16/19 25 [email or web address] [place] [facility] [address], [place], [address], 21:43:51 Medication Orders None record ed. Patient TargetsNo targets recorded. Patient InstructionsNo instructions recorded. Reason for Referral None Reported. Results Created Date Observation Date Name Description Value Unit Range Abnormal Flag Note LastModifiedBy Organization Detail LastModifiedTime 09/16/19 25 09/16/2024 CULTU RE: GROUP B STREP SCREE N, REFLE X SUSCE PTIBI LITY result report SEE RESULT S BELOW Test: Cultu re: Group B Strep , Refle x Susce ptibi lity ([facility]/ [facility] ) Speci men Sourc e: Vagin a/Rec [email or web address] Speci men Type: Vagin al/Re ctal Speci men Date: 2024 1442 Resul t Date: 2024 1419 Resul t Statu s: Final resul t Abnor mal: No Resul ting Lab: [facility] [address] [facility] [address] Tel: [phone] CULTU RE ----- ----- ----- --- No Group B strep isola onesimo at 2 days (kae ctive broth enhan cemen t) Not Available [facility] (Lab) [address], [place], [address], 09/20/2024 01:31:36 09/16/19 25 09/16/2024 US, obste tric, follo w-up No observ ation record ed. [email or web address] [place] [address], [place], [address], 09/16/2024 17:42:01 09/16/19 25 09/16/2024 US, obste tric, follo w-up No observ ation record ed. [email or web address] [address], [place], [address], 09/22/2024 14:55:42 10/02/19 25 09/30/2024 non-s tress test No observ ation record ed. [email or web address] [place] [address], [place], [address], 2024 17:28:33 10/02/19 25 2024 non-s tress test No observ ation record ed. [place] [address], [place], [address], 2024 18:27:22 Result Notes None recorded. Problems Name Problem SNOMED Code Status Onset Date Resolution Date Notes Provider Name and Address Organization Details Recorded Time 46713691 Active 2023 Corine vargas, [facility] 4 18:26:41 History of chlamydia l infection 527679215 [facility], [facility] 4 15:43:29 Alpha thalassem ia 90158942 Active 2023 silent carrier; low risk [facility], [facility] 4 17:47:43 Low lying placenta 163321573 Active resolved Sakina Cantrell CNM [address], [place], [address], [facility] 4 12:41:38 Mixed anxiety and depressiv e disorder 270309211 Active 2023 Corine Novak [facility], [facility] 4 12:29:58 Problem Notes None recorded. Procedures Surgical History Date Name Laterality Status Provider Name and Address Organization Details Recorded Time 02/19/20 24 Date of Last Pap Smear completed Corine Novak [facility] 02/19/2024 15:34:35 12/26/19 23 Nexplanon Removal completed BALAJI Gandih- [address], [place], [address], [facility] 12/25/2022 15:19:15 09/07/19 23 Control Implant Insertion completed BALAJI Gandhi- [address], [place], [address], [facility] 09/07/2022 14:46:07 08/05/19 11 Tonsillectomy completed Corine Novak [facility] 10/17/2023 12:48:17 Imaging Results Imaging Date Name Status LastModified by Organiz ation Details LastModified Time 09/16/2024 US, obstetric, follow-up completed [email or web address] [place] [address], [place], [address], 09/16/2024 17:42:01 09/16/2024 US, obstetric, follow-up completed [email or web address] [address], [place], [address], 09/22/2024 14:55:42 09/30/2024 non-stress test completed [email or web address] [place] [address], [place], [address], 2024 17:28:33 2024 non-stress test completed [email or web address] [place] [address], [place], [address], 2024 18:27:22 Procedure Notes None recorded. Medical Equipment None Reported. Allergies Allergen ID Allergen Name Allergen Category Reaction Reaction Severity Criticality Documentation Date Start Date Code Code System Note Provider Name and Address Organization Details Recorded Time [address] [facility] Not [facility] Not available Not available 04/01/20242001 RxNorm Corine Novak [facility], [facility] 18:25:07 Medications Name Sig Start Date Stop Date Status Note LastModified by Organization Details LastModified Time tretinoin 0.1 % topical cream 07/14 completed Not Available Not Available Not Available amoxicillin 500 mg capsule take 1 twice a day for 10day active Not Available Not Available No t Available clindamycin HCl 300 mg capsule Take [...] Available ondansetron 4 mg disintegrat ing tablet 10/07 completed Not Available Not Available Not Available clotrimazol e 1 % topical cream [...] Not Available Not Available Not Avai lable Se- 19 29 mg iron-1 mg tablet 10/16 completed Not Available Not Available Not Available Vitals Date Recorded Body weight Body mass index (BMI) Body height Systolic blood pressure Diastolic blood pressure Provider Name and Address Organization Details Last Updated DateTime 09/16/2024 83894.63 862 g 21.6 kg/m2 162.56 cm 118 mm[Hg] 75 mm[Hg] Corine Novak [facility] 14:55:43 Date Recorded Body weight Body mass index (BMI) Body height Systolic blood pressure Diastolic blood pressure Provider Name and Address Organization Details Last Updated DateTime 09/23/2024 39233.23 099 g 21.8 kg/m2 162.56 cm 118 mm[Hg] 74 mm[Hg] Corine Novak [facility] 14:28:55 Date Recorded Body height Body mass index (BMI) Body weight Body height Body mass index (BMI) Body weight Systolic blood pressure Diastolic blood pressure Systolic blood pressure Diastolic blood pressure Provider Name and Address Organization Details Last Updated DateTime 162.56 cm 22.5 kg/m2 06887.6 g 162.56 cm 22.5 kg/m2 97949.6 g 131 mm[Hg] 78 mm[Hg] 131 mm[Hg] 78 mm[Hg] Corinecharles Novak [facility] 17:18:50 Date Recorded Body weight Body mass index (BMI) Body height Systolic blood pressure Diastolic blood pressure Provider Name and Address Organization Details Last Updated DateTime 10/07/2024 87463.00 81 g 22.3 kg/m2 162.56 cm 122 mm[Hg] 83 mm[Hg] Corine Novak [facility] 09:56:39 Social History Question Answer Notes LastModified by Organizat ion Details LastModified Time Tobacco Smoking Status Never [facility]oker [facility] 05/01/2023 15:09:00 What Is Your Level Of Alcohol Consumption? None Information not available 03/15/2021 If You Are , What Was Your Level Of Alcohol Consumption Prior To ? Occasional [email or web address] Information not available 02/19/2024 Are You Blind Or Do You Have Difficulty Seeing? No Information not available 03/15/2021 What Is Your Level Of Caffeine Consumption? None Information not available 03/15/2021 In The 14 Days Before Symptom Onset, Have You Had Close Contact With A Laboratory-confir med COVID-19 While That Case Was Ill? No [email or web address] Information not available 07/14/2021 In The 14 Days Before Symptom Onset, Have You Had Close Contact With A Person Who Is Under Investigation For COVID-19 While That Person Was Ill? No [email or web address] Information not available 07/14/2021 Have You Been To An Area Known To Be High Risk For COVID-19? No [email or web address] Information not available 07/14/2021 Are You Deaf Or Do You Have Serious Difficulty Hearing? No Information not available 03/15/2021 What Type Of Diet Are You Following? REGULAR Information not available 03/15/2021 Do You Or Have You Ever Used E-cigarettes Or Vape? Current User Of Electronic Cigarettes [email or web address] Information not available 02/19/2024 Do You Use Your Seat Belt Or Car Seat Routinely? Yes Information not available 03/15/2021 Are You Sexually Active? Yes [email or web address] Information not available 05/01/2023 Do You Have Smoke And Carbon Monoxide Detectors In Your Home? Yes Information not available 03/15/2021 Do You Feel Stressed (tense, Restless, Nervous, Or Anxious, Or Unable To Sleep At Night)? [id number] Information not available 03/15/2021 Do You Use Any Illicit Or Recreational Drugs? Yes Marijuana [email or web address] Information not available 02/19/2024 Do You Use Sunscreen Routinely? Yes Information not available 03/15/2021 Has Tobacco Cessation Counseling Been Provided? No [email or web address] Information not available 05/01/2023 Do You Or Have You Ever Used Any Other Forms Of Tobacco Or Nicotine? Yes [email or web address] Information not available 02/19/2024 Sex: Unknown Functional Status Question Answer Note LastModified by Organizat ion Details LastModified Time Do you have difficulty walking or climbing stairs? No [email or web address] Information not available 05/01/2023 Are you able to walk? [email or web address] Information not available 03/15/2021 Are you able to care for yourself? Yes [email or web address] Information not available 05/01/2023 Do you have [...] Diagnosis/Indication Diagnosis SNOMED-CT Code Diagnosis ICD10 Code Diagnosis Note [id number] Jacey Chavez , [facility] [address] [address] 03/15/2021 10:56:15 03/15/2021 11:58:21 Cystic acne 20178958 L70.0 N92.0 Discussed all control options in great detail. Pt would like to start ocp. She is aware of the risks and benefits. She does not have any medical condition that is contraindi cated with the use of estrogen containing control. Pt will start her pills on the first saturday following the start of her period. She is aware it is not effective for control the first month. She is also aware of the importance of taking at the same time every day. Encouraged use of condoms as the pill does not protect against STD's. Will return in 3 months for med check. Consent was read and signed. Pt verbalized understand ing. RTO x 3mos or sooner if questions Gynecologi c examination 73900144 Z01.419 Take Calcium with Vitamin D 1200mg daily if not receiving in daily diet. It is strongly advised to have an annual flu shot and up can obtain at most pharmacies . If you have not had a TDap shot in the last 10 years you should obtain one as well. Discussed with patient & provided with informatio n regarding Gardisil vaccine to prevent the 4 strains for HPV that cause cervical cancer. Encourage safe sexual practices, to use condoms and limit partners if not already in a monogamous relationsh ip. Do monthly self breast exams. BRCA testing is now available for patients with strong genetic history of female cancer. If interested contact the office. Engage in daily exercise of low impact aerobic exercise 45-60 minutes 4-5 times weekly. Avoid tobacco, illicit drugs, and alcohol. This lifestyle behavior pattern will lead to less health conditions and longer life span. If BMI greater than 25 weight watchers or dietary consult advised. Pap smear is not recommende d prior to the age of 21. If you have any concerns, pelvic, or vaginal problems we can discuss testing. Patient received above instructio ns, and questions have been answered. If you have any questions please call or respond to this email. Patient was made aware of the patient portal and may obtain a paper copy of today's plan if desired.Gutierrez need std screen today but will consider moving forwards. [id number] [facility] [address] [address] 07/14/2021 10:04:12 07/14/2021 11:55:46 Acne 75381270 L70.9 Contracept ion care management 834168431 Z30.9 [id number] [facility] [address] [address] 08/30/2021 09:26:58 08/30/2021 13:38:10 Vaginitis 68343692 N76.0 Today we agreed to treatment and will send in updated vag cx's including std screening. Will contact with results.Ic e packs prnWarm baking soda soaks can also soothe this area as needed. Time spent in visit is a total of 15 mins with at least 50% of visit consisting of counseling and review of plan of care.Addit ional precaution dorcas measures were taken to minimize potential exposure to the Covid-19 virus during this patient s visit, including available hand fast food cashier upon arrive, temperatur e check and being asked a series of screening questions. All staff wore face coverings during this encounter, as well as provided additional cleaning and sanitizing of all surfaces, including countertop s, pens, chairs, door handles, light switches, etc, prior to and following the patient s visit. [id number] Kristine Baires [facility] [address] [address] 03/20/2022 11:08:37 03/20/2022 12:30:57 Irregular periods 19939468 N92.6 Venereal d isease screening 425636394 Z11.3 Sexually t ransmitted infectious disease 6874510 A64 Vaginitis 29990069 N76.0 Urine hcg (-) today, patient request bhcg to be done. OrderedWe discussed various causes of BTB on OCP, encouraged her to continue taking OCP in normal fashion, same time daily. If BTB continues should RTC.STI urine sentBlood STI panel orderedVag initis panel sentPossib le yeast vs contact dermatitis Rx nystatin-t riamcinolo ne cream sentVulvar care guidelines discussed- Sleep with no underwear, cotton underwear only-Avoid vaginal washes/soa ps/product s - only water and fingers to cleanse the vulva-Avoi d tight clothing-C ondom use encouraged Patient would like to await testing prior to any other medication s or treatment being started Time spent in visit is a total of 30 mins with at least 50% of visit consisting of counseling and review of plan of care. [id number] Kristine Baires [facility] [address] [address] 04/11/2022 10:04:33 04/11/2022 11:47:18 Lesion of vulva 898846026 N90.89 Lesion highly suspicious for HSV infection, discussed this with patientHSV PCR sentBlood STI testing declinedChino young is too early for JARAD for recent (+) chlamydia, she has an appointmen t scheduled to RTC next month for thisChinoe stopped taking her OCP due to acne, declines any BC nowCondom use encouraged Vulvar care guidelines discussedW ill await HSV testing Time spent in visit is a total of 30 mins with at least 50% of visit consisting of counseling and review of plan of care. Contracept ion care management 694880861 Z30.9 Venereal d isease screening 498080407 Z11.3 [id number] Jacey Chavez [place] [address] [address] 09/06/2022 16:53:35 09/06/2022 17:13:39 Contraception care management 715148642 Z30.9 Discussed all control options in depth and pt is interested in Nexplanon. Discussed all risks and benefits including irregular unschedule d bleeding. Pt verbalized understand ing and would like to proceed. She will complete HCG today & if negative can return tomorrow for Nexplanon insertion. Literature given for add'l review. Time spent in visit is a total of 30 mins with at least 50% of visit consisting of counseling and review of plan of care. [id number] Jacey Chavez [facility] [address],[place] [address] 09/07/2022 14:11:06 09/07/2022 15:29:09 Insertion of subcutaneous contraceptive 512571283 Z30.9 Patient is here currently on her menses. She was given all the r/b/a of placement of the Nexplanon device and has signed the consent. She is fully aware of all possible side effects of the device and has decided to move forward with placement. Insertion site was cleansed with betadine and 3cc lidocaine used for anesthesia . Device was placed in the left arm per usual fashion w/o complicati on and patient instructed to f/u in one month or earlier if there are any si/sx of infection or hypersensi tivity at the insertion site RTO x 3mos med check or sooner if needed [id number] Jacey Chavez [facility] [address],[place] [address] 11/21/2022 15:04:09 11/21/2022 17:23:09 Venereal disease screening 712948185 Z11.3 STD screen swab updatedSTD serum panel updatedNew sexual partnerWil l contact with results Time spent in visit is a total of 15 mins with at least 50% of visit consisting of counseling and review of plan of care. Abnormal u terine bleeding 3062618772 9100 N93.9 UPT negIf continues consider course of estradiol 1mg x 20 days.Under stands that this can be normal 3-6mos with initiation of nexplanon. Will update us Sexually t ransmitted infectious disease 6627756 A64 [id number] [facility] [address] [address] 12/25/2022 14:42:59 12/25/2022 15:32:53 Venereal disease screening 893545015 Z11.3 Here today for JARAD.Took all abxPartner treatedUri ne JARAD sentNEg sxs Time spent in visit is a total of 10 mins with at least 50% of visit consisting of counseling and review of plan of care.Not including time spent on procedure. Removal of subcutaneous contraceptive 515899895 Z30.46 Removal site was cleansed with betadine and 3cc of lidocaine used for anesthesia . Device was removed in normal fashion without difficulty . Steri stips and pressure bandage placed. Opts to use CondomsUnd erstands there is no contracept ion (unless uses condoms) once device is removed.Un angela g verbalized . [id number] Jacey Chavez [facility] [address],[place] [address] 04/24/2023 15:42:02 04/25/2023 12:38:44 Easy bruising 684548784 R58 Today we discussed updating lab work then F/U to discuss labs and decide next steps in plan of care.She is unable to determine if anything else has changed.Do es not want different BC; feels she did not emotionall y do well on previous BC.UPT today is still negative. Time spent in visit is a total of 15mins with at least 50% of visit consisting of counseling and review of plan of care. Cystic acne 31805042 L70 .0 N92.0 Consider derm referral if neeeded [id number] Jacey Chavez [facility] [address] [address] 05/01/2023 15:08:53 05/02/2023 16:57:16 Cystic acne 97876194 L70.0 N92.0 Today we agreed to consider a trial of spironolac tone for help with her acne which is likely related to hormonal changes after removal of nexplanon. She is trying to avoid hormonal BC reports that is greatly effects her moods.She will consider this option & RTO x 4wks med check if decides to pursue.Eduardo l need updated CMP with potassium levels if continue spironolac tone. Counseled on medication R/B's, Most common side effects, & use. All questions were answered to patient satisfacti on. Time spent in visit is a total of 20 mins with at least 50% of visit consisting of counseling and review of plan of care. [id number] Jacey Chavez [facility] [address],[place] [address] 06/19/2023 09:20:29 06/19/2023 09:55:28 Furuncle of vulva 499216735 N76.4 Boils on vulva found on exam todayDecli leland need std screenDo not suspect vaginitis or std todayLikel y from using old razor to shave area. Counseled on medication R/B's, Most common side effects, & use. All questions were answered to patient satisfacti on. Time spent in visit is a total of 20 mins with at least 50% of visit consisting of counseling and review of plan of care. Reproducti ve care management 915701533 Z31.9 Trying to conceiveWi ll start PNV Counseled on reproducti ve timeline, signs/sx's . [id number] Jones Koenig MD [place] [address] [address] 10/17/2023 12:37:37 10/17/2023 13:41:58 Abnormal uterine bleeding 9232911362 9100 N93.9 23-year-ol d patient with abnormal uterine bleeding for more than 3 months. Her menstrual history is a little vague last year to. She was on Nexplanon for part of the year. And then she did not know really what to look for for logging her periods. It appears that she does have ovulatory cycles intermitte ntly at least. She reports premenstru al symptoms and a discrete menses. We will evaluate her abnormal uterine bleeding the patient would like to become . Her exam was normal. Talked about timing intercours e, we talked about regular menstrual cycles and normal menstrual cycles. We talked about tracking ovulation. She will return for pelvic ultrasound and a visit to discuss results. We will check labs and iron levels. She reports symptoms of anemia. We spent 40 minutes face-to-fa ce. More than 50% was counseling . Disorder o f menstruation 782771585 N92.6 [id number] Qi Garvin [place] [address] [address] 10/28/2023 14:29:56 10/28/2023 15:30:52 Abnormal uterine bleeding 1008298407 9100 N93.9 23-year-ol d patient with abnormal uterine bleeding for more than 3 months. Her menstrual history is a little vague last year to. She was on Nexplanon for part of the year. And then she did not know really what to look for for logging her periods. It appears that she does have ovulatory cycles intermitte ntly at least. She reports premenstru al symptoms and a discrete menses. We will evaluate her abnormal uterine bleeding the patient would like to become . Her exam was normal. Talked about timing intercours e, we talked about regular menstrual cycles and normal menstrual cycles. We talked about tracking ovulation. She will return for pelvic ultrasound and a visit to discuss results. We will check labs and iron levels. She reports symptoms of anemia. We spent 40 minutes face-to-fa ce. More than 50% was counseling . [id number] Jones Koenig MD [place] [address] [address] 10/28/2023 15:18:58 10/28/2023 16:39:54 Abnormal uterine bleeding 0590683029 9100 N93.9 this patient is a 23-year-ol d female who presents for follow-up on abnormal uterine bleeding. Reviewed her ultrasound and her laboratory evaluation . They are all normal. Patient appears to have a normal ovulatory cycle since our previous visit. Her bleeding may become more regular. She knows what to look for. She was educated on the menstrual cycle at our last visit. She is tracking her menstrual cycle. She also is interested in knowing when she ovulates. We spent 20 minutes face-to-fa ce. More than 50% was counseling . [id number] [facility] [address] [address] 02/19/2024 14:52:45 02/19/2024 15:21:14 Uterine size for dates discrepancy 362212707 O26.841 Z3A.01 [id number] [facility] [address],[facility] [place] [address] 02/19/2024 14:52:59 02/19/2024 16:08:22 Amenorrhea 42641724 N91.2 +UPTcontin ue PNVplan 12 week NIPS and new obpap collected Gynecologi c examination 35609744 Z01.419 Nausea and vomiting 1693 2000 R11.2 [id number] [facility] [address] [address] 04/01/2024 17:27:04 04/02/2024 07:54:22 screening 373044533 Z36.82 Z3A.12 [id number] Sakina Cantrell CNM [place] [address] [address] 04/01/2024 17:27:30 04/02/2024 17:31:29 Gestation period, 12 weeks 50501817 Z3A.12 continue vitamin [id number] [facility] [address] [address] 04/29/2024 16:22:12 04/29/2024 16:50:41 Gestation period, 16 weeks 72590304 Z3A.16 continue vitamin Anxiety 91584100 F41.9 start zoloft 25 mg daily, if any suicidal thoughts to edse risks and benefitsf/ u 4 weeks or sooner if neededmay have reglan if calls [id number] [facility] [address],[place] [address] 05/26/2024 14:35:17 05/26/2024 17:52:03 screening for malformation [id number] Z36.3 Z3A.20 [id number] Sakina Cantrell [facility] [address],[place] [address] 05/27/2024 17:14:49 05/28/2024 10:29:26 Gestation period, 20 weeks 48655303 Z3A.20 Anxiety 90746412 F41.9 continue zoloft 25 mg daily, if any suicidal thoughts to edse risks and benefitsf/ u 4 weeks or sooner if neededmay have reglan if calls [id number] [facility] [address],[place] [address] 06/24/2024 11:40:27 06/24/2024 12:37:10 Low lying placenta 241879816 O44.42 Z3A.24 [id number] [facility] [address],[place] [address] 06/24/2024 11:41:44 06/24/2024 12:43:47 Gestation period, 24 weeks [id number] Z3A.24 [id number] [facility] [address],[place] [address] 07/31/2024 11:09:29 07/31/2024 11:59:32 Gestation period, 29 weeks 83182681 Z3A.29 [id number] [facility] [address],[place] [address] 08/12/2024 09:12:24 08/12/2024 10:05:14 Uterine size for dates discrepancy 216534688 O26.843 Z3A.31 [id number] Sakina Cantrell [facility] [address],[place] [address] 08/12/2024 09:12:58 08/12/2024 10:58:29 Gestation period, 31 weeks 91078704 Z3A.31 [id number] [facility] [address],[place] [address] 08/26/2024 15:22:41 08/26/2024 16:03:35 Gestation period, 33 weeks 29963383 Z3A.33 Infection of tooth 78612 8007 K04.7 [id number] Sakina Cantrell [facility] [address],[place] [address] 09/09/2024 14:13:46 09/09/2024 14:53:11 Gestation period, 35 weeks 75925355 Z3A.35 [id number] [facility] [address],[place] [address] 09/16/2024 13:54:55 09/16/2024 14:31:09 Low maternal weight gain 80952094 O26.13 Z3A.36 [id number] [facility] [address],[place] [address] 09/16/2024 13:55:25 09/16/2024 15:17:37 Gestation period, 36 weeks 04499661 Z3A.36 Anxiety 27186180 F41.9 [id number] Sakina Cantrell [facility] [address],[place] [address] 09/23/2024 14:14:35 09/23/2024 14:44:24 Gestation period, 37 weeks 68573857 Z3A.37 [id number] Sakina Cantrell [facility] [address],[place] [address] 09/30/2024 13:57:10 09/30/2024 14:34:28 Gestation period, 38 weeks 67892654 Z3A.38 [id number] Corine Novak [place] [address],[place] [address] 2024 17:17:21 10/04/2024 23:16:42 Abdominal pain in 456666779 O99.891 [id number] Sakina Cantrell [facility] [address],[place] [address] 10/07/2024 09:37:07 10/07/2024 10:22:59 Gestation period, 39 weeks 46674852 Z3A.39 Health Concerns Section Related Observation LastModified by Organization Detai ls LastModified Time None Recorded Concern Status LastModified by Organization Details LastModified Time None Recorded Advance Directives Directive None Recorded Payers Encounter Date Sequence Insurance Name Policy Number Policy Shine Covered Member ID Shine Member ID Guarantor Name 09/16/2024 1 [place] [id number] 1 Cornel Gary [id number] S Mae Allgire 09/16/2024 2 [facility] ON OR AFTER 02/02/21 (MEDICAID REPLACEMENT - HMO) Mae Allgire [id number] Mae Allgire 09/23/2024 1 [place] [id number] 1 Cornel Gary [id number] S Mae Allgire 09/23/2024 2 [facility] ON OR AFTER 02/02/21 (MEDICAID REPLACEMENT - HMO) Mae Allgire [id number] Mae Allgire 09/30/2024 1 [place] [id number] 1 Cornel Gary [id number] S Mae Allgire 09/30/2024 2 [facility] ON OR AFTER 02/02/21 (MEDICAID REPLACEMENT - HMO) Mae Allgire [id number] Mae Allgire 09/30/2024 1 [place] [id number] 1 Cornel Gary [id number] S Mae Allgire 09/30/2024 2 [facility] ON OR AFTER 02/02/21 (MEDICAID REPLACEMENT - HMO) Mae Allgire [id number] Mae Allgire 10/07/2024 1 [place] [id number] 1 Cornel Gary [id number] S Mae Allgire 10/07/2024 2 [facility] ON OR AFTER 02/02/21 (MEDICAID REPLACEMENT - HMO) Mae Allgire [id number] Mae Allgire OBGyn Episode Ob Episode Information Episode Created Date Number of Fetuses Patient Bloodtype Patient rh Status Prepregnancy Weight lbs Domestic Partner Domestic Partner Phone Father Name Patient Monitor Status 04/01/20 24 1 A Positive 104 Stan Willyar d OPEN Fetus Data First Name Last Name Admitted to NICU Weight (g) Sex Living Outcome Pediatric Complications Fetus ID Race Codes Race Delivery Type [id number] Problems Problem Notes 32wk growth us Problem Name Start Date End Date Resolution Snomed Code Not e History of chlamydial infection 147972642 chl neg Alpha thalassemia 04/16/2024 14277149 s ilent carrier; low risk Low lying placenta 730817109 r esolved Valerio Calculation Initial Valerio Date Initial Exam Date Initial Exam Provider Initial Ultrasound Date Last Menstrual Period Date Ultra Sound Weeks Gestation 10/11/2024 02/19/2024 Sakina Óscar 02/19/2024 12/22/2023 6 Eighteen To Twenty Week Valerio Update Ultra Sound Date Fundal Height At Umbil Quickening Date Ultra Sound Latest Weeks Gestation Final Valerio Confirmed By Final Valerio Confirmed Date Final Valerio Date Ultra Sound Latest Days Gestation 0 0 Pre-luz Flowsheet Flowsheet Date 04/01/2024 Frias Score Blood Edema Fundus Height Fundus Units Glucose Ketones Leukocytes Nitrite Labor Signs Protein Cervic Dilation Cervic Effacement Cervic Station neg none none trace Type Weight in lbs Pre/Post Dialysis Refused Weight 104.661850301900 BP Diastolic BP Location Tested BP Systolic [...] Type Weight in lbs Pre/Post Dialysis Refused 105.349207820682 BP Diastolic BP Location Tested BP Systolic [...] Type Weight in lbs Pre/Post Dialysis Refused 109.062333536871 BP Diastolic BP Location Tested BP Systolic [...] Type Weight in lbs Pre/Post Dialysis Refused 118.879495750414 BP Diastolic BP Location Tested BP Systolic [...] Type Weight in lbs Pre/Post Dialysis Refused 122.898466337192 BP Diastolic BP Location Tested BP Systolic BP Type 58 111 Fetus Heart Rate Present Fetus Movement A Yes Comments Patient states that is havin g discharge, nausea and vomiting. growth at next visit +FM unsure about tdap, did rec. education and precautions GCT today f/u 2 weeks Flowsheet Date 08/12/2024 Frias Score Blood Edema Fundus Height Fundus Units Glucose Ketones Leukocytes Nitrite Labor Signs Protein Cervic Dilation Cervic Effacement Cervic Station Type Weight in lbs Pre/Post Dialysis Refused BP Diastolic BP Location Tested BP Systolic BP Type Fetus Heart Rate Present Fetus Movement Comments Flowsheet Date 08/12/2024 Frias Score Blood Edema Fundus Height Fundus Units Glucose Ketones Leukocytes Nitrite Labor Signs Protein Cervic Dilation Cervic Effacement Cervic Station Type Weight in lbs Pre/Post Dialysis Refused 123.324007579472 BP Diastolic BP Location Tested BP Systolic BP Type 71 113 Fetus Heart Rate Present Fetus Movement A Yes Comments efw 70%, precautions and edu cation, rx for tdap and rsv given, pt wants to complete, +FM, discussed iron rish foods, having a hard time eating but is drinking ensure f/u 2 weeks Flowsheet Date 08/26/2024 Frias Score Blood Edema Fundus Height Fundus Units Glucose Ketones Leukocytes Nitrite Labor Signs Protein Cervic Dilation Cervic Effacement Cervic Station 29 cm Type Weight in lbs Pre/Post Dialysis Refused Weight 123.114472238045 BP Diastolic BP Location Tested BP Systolic BP Type 83 144 Fetus Heart Rate Present A 160 Fetus Movement A Yes Comments Patient is having discharge and tooth pain. [facility] app[facility], rx for antibiotics, declines norco will take tylenol for pain. education and precaution plan 2 week f/u, scared about delivery, questions answered, plan growth Flowsheet Date 09/09/2024 Frias Score Blood Edema Fundus Height Fundus Units Glucose Ketones Leukocytes Nitrite Labor Signs Protein Cervic Dilation Cervic Effacement Cervic Station neg none 32 cm Type Weight in lbs Pre/Post Dialysis Refused Weight 125.230086738714 BP Diastolic BP Location Tested BP Systolic BP Type 74 117 Fetus Heart Rate Present Fetus Movement A Yes Comments Patient states that is havin g some contractions. FHR by US, vertex, precautions and education growth next visit, +FM Flowsheet Date 09/16/2024 Frias Score Blood Edema Fundus Height Fundus Units Glucose Ketones Leukocytes Nitrite Labor Signs Protein Cervic Dilation Cervic Effacement Cervic Station Type Weight in lbs Pre/Post Dialysis Refused BP Diastolic BP Location Tested BP Systolic BP Type Fetus Heart Rate Present Fetus Movement Comments Flowsheet Date 09/16/2024 Frias Score Blood Edema Fundus Height Fundus Units Glucose Ketones Leukocytes Nitrite Labor Signs Protein Cervic Dilation Cervic Effacement Cervic Station neg none Type Weight in lbs Pre/Post Dialysis Refused 126.67858500564 BP Diastolic BP Location Tested BP Systolic BP Type 75 118 Fetus Heart Rate Present Fetus Movement A Yes Comments Patient is having contractio ns. efw 53%, +fm, VTX, Needs refill of sertraline, working well f/u one week, gbs collected Flowsheet Date 09/23/2024 Frias Score Blood Edema Fundus Height Fundus Units Glucose Ketones Leukocytes Nitrite Labor Signs Protein Cervic Dilation Cervic Effacement Cervic Station neg none 37 cm Type Weight in lbs Pre/Post Dialysis Refused 127.556387914745 BP Diastolic BP Location Tested BP Systolic BP Type 74 118 Fetus Heart Rate Present A 155 Present Fetus Movement A Yes Comments Patient is having trouble sl eeping, discharge, and BH contraction. +FM, precautions and education, cervix 0.5cm, soft Flowsheet Date 09/30/2024 Frias Score Blood Edema Fundus Height Fundus Units Glucose Ketones Leukocytes Nitrite Labor Signs Protein Cervic Dilation Cervic Effacement Cervic Station neg none Type Weight in lbs Pre/Post Dialysis Refused Weight 131.070770596802 BP Diastolic BP Location Tested BP Systolic BP Type 78 131 Fetus Heart Rate Present Fetus Movement A Yes Comments Patient is having some pain, contractions, constipation and discharge. exam limited due to stool in rectum, too painful, discussed and declines enema, will proceed with stool softeners, juice, may need manual removal, +FM, NST today, abd discomfort, unsure if contractions or constipation Flowsheet Date 09/30/2024 Frias Score Blood Edema Fundus Height Fundus Units Glucose Ketones Leukocytes Nitrite Labor Signs Protein Cervic Dilation Cervic Effacement Cervic Station Type Weight in lbs Pre/Post Dialysis Refused Weight 131.488121477894 BP Diastolic BP Location Tested BP Systolic BP Type 78 131 Fetus Heart Rate Present Fetus Movement Comments Flowsheet Date 10/07/2024 Frias Score Blood Edema Fundus Height Fundus Units Glucose Ketones Leukocytes Nitrite Labor Signs Protein Cervic Dilation Cervic Effacement Cervic Station neg 37 cm Type Weight in lbs Pre/Post Dialysis Refused 130.738651459264 BP Diastolic BP Location Tested BP Systolic BP Type 83 122 Fetus Heart Rate Present A 145 Fetus Movement A Yes Comments Patient is having some pain, contractions and discharge. IOL next saturday at 1600, membrane sweep, labor precautions +FM, constipation resolved Menstrual History Last Menstrual Date Menses Monthly [...]
--- OUTSIDE RECORDS SUMMARY | 2024-10-11 21:08 | XMS_ITS | Encounter Summary ---
Author Organization [facility] Address 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
--- OUTSIDE RECORDS SUMMARY | 2024-10-11 21:08 | XMS_ITS | Encounter Summary ---
Author Organization [facility] Address [address] Attn: [place] [address] Care Team Providers Care Field Broomer Name Role Phone Unavailable Primary Care Provider Unavailabl e Encounter Details Date Type Department Care Team (Late st Contact Info) Description 2002 Inpatient Historical Timblin, Rodger Carter MD [address] [facility] [place] [address] Sakina Stoddard MD [address] 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
--- OUTSIDE RECORDS SUMMARY | 2024-10-11 21:08 | XMS_ITS | Clinical Summary ---
Author Organization [facility] Address [address] [place] [address] Phone Care Team Providers Care Supervisor Feed House Name Role Phone Unavailable Primary Care Provider Unavailabl e Allergies Active Allergy Reactions Criticality Noted Date Comments Bisacodyl Rash Medium 07/10/2010 Carbamazepine Rash Low 01/30/2010 Medications clotrimazole (LOTRIMIN) 1 % Cream Active polyethylene glycol 3350 17 gram/dose oral powder Take 17 Grams by mouth. 01/16/2023 Active sennosides 8.6 mg tablet Take 17.2 mg by mouth 1 time daily as needed. 01/16/2023 Active Social History Tobacco Use Types Packs/Day Years Used Date Smoking Tobacco: Never Tobacco Cessation:Counseling Given: Not Answered Alcohol Use Standard Drinks/Week Comments Never 0 (1 standard drink = 0.6 oz pur e alcohol) Feeling Safe Answer Date Recorded Are you in a relationship wi th someone who hurts you emotionally and/or physically? 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 Gender Identity Not on file Sexual Orientation Not on file Last Filed Vital Signs Vital Sign Reading Time Taken Comments Blood Pressure 113/75 02/08/2023 5:19 PM CDT Pulse 100 02/08/2023 5:19 PM CDT Temperature 36.8 C (98.3 F) 02/08/2023 5:19 PM CDT Respiratory Rate 20 02/08/2023 5:19 PM CDT Oxygen Saturation 97% 02/08/2023 5:19 PM CDT Inhaled Oxygen Concentration - - Weight 49.9 kg (110 lb) 02/08/2023 5:19 PM CDT Height 165.1 cm (5' 5 ) 02/08/2023 5:19 PM CDT Body Mass Index 18.3 02/08/2023 5:19 PM CDT Plan of Treatment Health Maintenance Due Date Last Done Comments CHLAMYDIA SCREENING (ANNUAL) 11-24 YEARS 2013 HPV VACCINES (1 - 3-dose series) 2017 DTAP/TDAP/TD VACCINES (1 - Tdap) 2021 HEPATITIS B VACCINES (1 of 3 - 19+ 3-dose series) 09/06 CERVICAL CANCER SCREENING 2023 INFLUENZA VACCINE (#1) 2024 Insurance MEDICAID
--- OUTSIDE RECORDS SUMMARY | 2024-10-11 21:08 | XMS_ITS | Clinical Summary ---
Author Organization [facility] Address [address] [place] [address] Care Team Providers Care Case Checker Name Role Phone None, Physician Primary Care Provider Unavailabl e Source Comments [facility],non-owned Affiliates and Associated Physician Practices is amultiple site organization consisting of ambulatory clinics and hospital sitesin [place], [place], [place] and [place]. This disclosure is being madepursuant to the Care Everywhere program and may not contain all information available regarding this patient. Last updated 18.[facility] [place] Allergies Active Allergy Reactions Criticality Noted Date [...] as an outpatient with Dr. 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 F with DMDD, Bipolar disorder [...] F/u with [facility] on Saturday Jade, [employer] Senior [employer] at [facility] ([phone]) Counseling regarding goals of care 01/28/2012 Overview [...] several weeks. If unable to transfer to [facility] directly will send patient home [...] Overview (03/26/2012): Followed by Dr. Nilsa Rivera @[phone], ALT# [phone]. Spoken to during the 01/24 admission to [...] therapist until a bed is available at [facility]. 03/24/[address] Nilsa Cartagena-Abel @[phone], ALT# [phone], Psychiatrist taking care of Mae. She informed [...] bloody bowel movements. Social/Behavioral for placement at [facility] was explored but no bed [...] Health Maintenance Due Date Last Done Comments HIV SCREENING 2017 HPV VACCINE (1 - 3-dose series) 2017 CHLAMYDIA/GONORRHEA SCREENING 2018 MENINGOCOCCAL (Group B) VACCINE (1 of 2 - Standard) 2018 HEPATITIS C SCREENING 09/27/2020 DTAP/TDAP/TD VACCINES (1 - Tdap) 2021 HEPATITIS B VACCINE (1 of 3 - 19+ 3-dose series) 2021 COVID-19 VACCINE (3 - 2023-2 5 season) 2024 11/24/2020, 11/03/2020 INFLUENZA VACCINE (#1) 2024 0, 08/15/2019 PAP SMEAR 12/25/2025 12/25/2022, 03/20/2022 ZOSTER VACCINE (1 of 2) 2052 HIB [...] 12:15 AM 01/16/2023 3:33 PM Care Teams Case Checker Relationship Specialty Start Date End Date None, Physician [address] [place] [address] PCP - General 03/25/23
--- OUTSIDE RECORDS SUMMARY | 2024-10-11 21:08 | XMS_ITS | Clinical Summary ---
Author Organization [facility] Address [address] [place] [address] Care Team Providers Care Car Dumper Operator Name Role Phone No, Physician Primary Care Provider Allergies Active Allergy Reactions Criticality Noted Date [...] on file Legal Sex Female 7:24 PM CATECHIST Gender Identity Not on file Sexual Orientation [...] B Vaccine (1 o f 2 - Standard) 2018 Regular Well Visit/Exam 18-64 2020 Influenza Vaccine (#1) 2024 05/17/2020, 2019 DTaP/Tdap/Td Vaccine (7 - Td or Tdap) 06/10/2024 06/10/2014, 11/01/2006, 03/28/2004, Additional history exists Hepatitis B Screening Completed 07/06/2003 , 04/02/2003, 03/31/2003, Additional history exists Pneumococcal vaccine <65 Completed 005, 2004, 04/02/2003, Additional history exists Varicella Vaccines Completed 11/01/2006, 10/28/2003 HPV Vaccines Completed 05/28/2018, 08/22/2016 Insurance [facility] Care Teams Car Dumper Operator Relationship Specialty Start Date End Date No, Physician PCP - General 04/16/24
--- NOTE | 2024-10-11 21:09 | OBADM ---
This patient, Mae Frances, admitted to the OB room Labor/Delivery/Recovery 105 for observation. Patient/family oriented to hospital policies and general routines including ID bracelet, bed and alarms, visiting hours, pain management, procedures, bathroom and other care routines, personal items, smoking policy, room service/diet, and visiting hours. Patient/Family are encouraged to report perceived risks to care and to ask questions if they do not understand what they are told or what they should do.
== END 2024-10-11 21:11 | disposition home or self-care (01) ==
PROVIDERS: Admitting Provider Obstetrics & Gynecology; Visit Provider Obstetrics & Gynecology
DX: O47.1 False labor at or after 37 completed weeks of gestation (principal); Z3A.40 40 weeks gestation of pregnancy
CPT/HCPCS: G0378; G0379

== ENCOUNTER 2024-10-13 15:56 | Inpatient (IN) | payer BC, MEDICAID, SELFPAY ==
[2024-10-13] VITALS (45 sets, daily range): BP systolic 105–138; BP diastolic 57–97; PULSE 74–103; RESP 18; TEMP 36.7; O2SAT 87–100; BMI 23.8
[2024-10-13 16:59] LABS: Basophils Percent Auto 0.5 % (0.2-1.2); Eosinophils Percent Auto 0.3 % (0-4.4); Hemoglobin 10.5 g/dL (12.0-15.0); Immature Granulocyte Absolute 0.06 K/mm3 (0.00-0.031); Immature Granulocyte Percent A 0.8 % (0-0.5); Lymphocytes Absolute Auto 1.99 K/mm3 (0.9-3.2); Lymphocytes Percent Auto 24.9 % (18.3-44.2); Mean Corpuscular HGB Conc 30.9 g/dl (32-36); Mean Corpuscular Hemoglobin 24.1 pg (26-34); Mean Corpuscular Volume 78.2 fl (80-100); Monocytes Absolute Auto 0.6 K/mm3 (0.1-0.6); Neutrophils Absolute Auto 5.2 K/mm3 (1.3-6.7); Neutrophils Percent Auto 65.5 % (45.5-73.1); Platelet Count Result 184 k/mm3 (150-375); Red Blood Count 4.35 M/mm3 (4.2-5.4); Red Cell Distribution Width 16.1 % (11.5-14.5)
[2024-10-13] MEDS: miSOPROStol 25 MCG TABLET 50 MCG VAGINAL ×2 (17:41→22:44)
[2024-10-13 17:51] LABS: HIV 1/2 Ab P24 Ag Result Negative (Negative)
[2024-10-13 17:52] LABS: Syphilis IgG/IgM Antibody Negative (Negative)
--- OUTSIDE RECORDS SUMMARY | 2024-10-13 17:58 | XMS_ITS | Data Portability ---
Author Organization [facility] [place] Address [address] [place] [address] Assessment Encounter Date Assessment Date Assessment LastModified [...] Imaging non-st ress test 025 10/02/19 25 [email or web address] [place], [address], [place], [address], 17:29:24 US, obstet loco, follow -up 025 09/16/19 25 [email or web address] [place] [facility] [address], [place], [address], 21:43:51 Medication Orders None record ed. Patient [...] Resul ting Lab: [facility] [address] [facility] [address] Tel: [phone] CULTU RE ----- ----- ----- --- No Group B strep isola onesimo at 2 days (kae ctive broth enhan cemen t) Not Available [facility] (Lab) [address], [place], [address], 09/20/2024 01:31:36 09/16/19 25 09/16/2024 US, obste tric, follo w-up No observ ation record ed. [email or web address] [place] [address], [place], [address], 09/16/2024 17:42:01 09/16/19 25 09/16/2024 US, obste tric, follo w-up No observ ation record ed. [email or web address] [address], [place], [address], 09/22/2024 14:55:42 10/02/19 25 09/30/2024 non-s tress test No observ ation record ed. [email or web address] [place] [address], [place], [address], 2024 17:28:33 10/02/19 25 2024 non-s tress test No observ ation record ed. [email or web address] [place] [address], [place], [address], 2024 18:27:22 Result Notes None recorded. Problems Name Problem SNOMED Code Status Onset Date Resolution Date Notes Provider Name and Address Organization Details Recorded Time 29321147 Active 2023 Corine vargas, [facility] 4 18:26:41 History of chlamydia l infection 185227658 [facility], [facility] 4 15:43:29 Alpha thalassem ia 22100318 Active 2023 silent carrier; low risk [facility], [facility] 4 17:47:43 Low lying placenta 031921922 Active resolved Sakina Cantrell CNM [address], [place], [address], [facility] 4 12:41:38 Mixed anxiety and depressiv e disorder 642013525 Active 2023 Corine Novak [facility], [facility] 4 12:29:58 Problem Notes None recorded. Procedures Surgical History Date Name Laterality Status Provider Name and Address Organization Details Recorded Time 02/19/20 24 Date of Last Pap Smear completed Corine Novak [facility] 02/19/2024 15:34:35 12/26/19 23 Nexplanon Removal completed BALAJI Gandhi- [address], [place], [address], [facility] 12/25/2022 15:19:15 09/07/19 23 Control Implant Insertion completed BALAJI Gandhi- [address], [place], [address], [facility] 09/07/2022 14:46:07 08/05/19 11 Tonsillectomy completed Corine Novak [facility] 10/17/2023 12:48:17 Imaging Results Imaging Date Name Status LastModified by Organiz ation Details LastModified Time 09/16/2024 US, obstetric, follow-up completed [email or web address] [place] [address], [place], [address], 09/16/2024 17:42:01 09/16/2024 US, obstetric, follow-up completed [email or web address] [address], [place], [address], 09/22/2024 14:55:42 09/30/2024 non-stress test completed [email or web address] [place] [address], [place], [address], 2024 17:28:33 2024 non-stress test completed [email or web address] [place] [address], [place], [address], 2024 18:27:22 Procedure Notes None recorded. Medical Equipment None Reported. Allergies Allergen ID Allergen Name Allergen Category Reaction Reaction Severity Criticality Documentation Date Start Date Code Code System Note Provider Name and Address Organization Details [facility] Not available Not available 04/01/20242001 RxNorm Corine Novak [facility], [facility] 18:25:07 Medications Name Sig Start [...] Not Available Not Available Not Avai lable Se-Kwasi 19 29 mg iron-1 mg tablet 10/16 completed Not Available Not Available Not Available Vitals Date Recorded Body weight Body mass index (BMI) Body height Systolic blood pressure Diastolic blood pressure Provider Name and Address Organization Details Last Updated DateTime 09/16/2024 82100.63 862 g 21.6 kg/m2 162.56 cm 118 mm[Hg] 75 mm[Hg] Corine Novak [facility] 14:55:43 Date Recorded Body weight Body mass index (BMI) Body height Systolic blood pressure Diastolic blood pressure Provider Name and Address Organization Details Last Updated DateTime 09/23/2024 76779.23 099 g 21.8 kg/m2 162.56 cm 118 mm[Hg] 74 mm[Hg] Corine Novak [facility] 14:28:55 Date Recorded Body height Body mass index (BMI) Body weight Body height Body mass index (BMI) Body weight Systolic blood pressure Diastolic blood pressure Systolic blood pressure Diastolic blood pressure Provider Name and Address Organization Details Last Updated DateTime 162.56 cm 22.5 kg/m2 81846.6 g 162.56 cm 22.5 kg/m2 87745.6 g 131 mm[Hg] 78 mm[Hg] 131 mm[Hg] 78 mm[Hg] Corinecharles Novak [facility] 17:18:50 Date Recorded Body weight Body mass index (BMI) Body height Systolic blood pressure Diastolic blood pressure Provider Name and Address Organization Details Last Updated DateTime 10/07/2024 88536.00 81 g 22.3 kg/m2 162.56 cm 122 mm[Hg] 83 mm[Hg] Corine Novak [facility] 09:56:39 Social History Question Answer Notes LastModified by Organizat ion Details LastModified Time Tobacco Smoking Status Never [facility] 05/01[facility]2023 15:09:00 What Is Your Level Of Alcohol Consumption? None Information not available 03/15/2021 If You Are , What Was Your Level Of Alcohol Consumption Prior To ? Occasional [email or web address] Information not available 02/19/2024 Are You Blind Or Do You Have Difficulty Seeing? No Information not available 03/15/2021 What Is Your Level Of Caffeine Consumption? None Information not available 03/15/2021 In The 14 Days Before Symptom Onset, Have You Had Close Contact With A Laboratory-confir med COVID-19 While That Case Was Ill? No [email or web address] Information not available 07/14/2021 In The 14 Days Before Symptom Onset, Have You Had Close Contact With A Person Who Is Under Investigation For COVID-19 While That Person Was Ill? No Information not available 07/14/2021 Have You Been To An Area Known To Be High Risk For COVID-19? No [email or web address] Information not available 07/14/2021 Are You Deaf Or Do You Have Serious Difficulty Hearing? No Information not available 03/15/2021 What Type Of Diet Are You Following? REGULAR Information not available 03/15/2021 Do You Or Have You Ever Used E-cigarettes Or Vape? Current User Of Electronic Cigarettes [email or web address] Information not available 02/19/2024 Do You Use Your Seat Belt Or Car Seat Routinely? Yes Information not available 03/15/2021 Are You Sexually Active? Yes [email or web address] Information not available 05/01/2023 Do You Have Smoke And Carbon Monoxide Detectors In Your Home? Yes Information not available 03/15/2021 Do You Feel Stressed (tense, Restless, Nervous, Or Anxious, Or Unable To Sleep At Night)? [id number] Information not available 03/15/2021 Do You Use Any Illicit Or Recreational Drugs? Yes Marijuana [email or web address] Information not available 02/19/2024 Do You Use Sunscreen Routinely? Yes Information not available 03/15/2021 Has Tobacco Cessation Counseling Been Provided? No [email or web address] Information not available 05/01/2023 Do You Or Have You Ever Used Any Other Forms Of Tobacco Or Nicotine? Yes [email or web address] Information not available 02/19/2024 Sex: Unknown Functional Status Question Answer Note LastModified by Organizat ion Details LastModified Time Do you have difficulty walking or climbing stairs? No Information not available 05/01/2023 Are you able to walk? [email or web address] Information not available 03/15/2021 Are you able to care for yourself? Yes [email or web address] Information not available 05/01/2023 Do you have difficulty dressing or bathing? No [email or web address] Information not available 05/01/2023 What is your [...] N Drug/Latex Allergies/Reactions Y Blood Transfusion N Lung Disease N Dermatologic Disorders N Defects or Inherited Disease N Breast Problem N Gestational Diabetes N Hematologic disorders N Anesthesia Complications N History of STI Y Deep Vein Thrombosis N Polycystic ovary syndrome N Anxiety Disorder Y Autoimmune disease N Arthritis N Polyps N Infertility N History of abnormal pap N Acid Reflux (GERD) N Cancer N Varicosities N Stroke N [...] SNOMED-CT Code Diagnosis ICD10 Code Diagnosis Note [id number] Jacey Chavez , [facility] [address] [address] 03/15/2021 10:56:15 03/15/2021 11:58:21 Cystic acne 45941565 L70.0 N92.0 Discussed all control options in [...] or sooner if questions Gynecologi c examination 65867252 Z01.419 Take Calcium with Vitamin D 1200mg [...] screen today but will consider moving forwards. [id number] [facility] [address] [address] 07/14/2021 10:04:12 07/14/2021 11:55:46 Acne 49576406 L70.9 Contracept ion care management 589395716 Z30.9 13240 [facility] [address] [address] 08/30/2021 09:26:58 08/30/2021 13:38:10 Vaginitis 61351253 N76.0 Today we agreed to treatment and [...] this patient s visit, including available hand exhibit technician upon arrive, temperatur e check and being asked a series of screening questions. All staff wore face coverings during this encounter, as well as provided additional cleaning and sanitizing of all surfaces, including countertop s, pens, chairs, door handles, light switches, etc, prior to and following the patient s visit. [id number] Kristine Baires [facility] [address] [address] 03/20/2022 11:08:37 03/20/2022 12:30:57 Irregular periods 83738956 N92.6 Venereal d isease screening 521187096 Z11.3 Sexually t ransmitted infectious disease 2522985 A64 Vaginitis 80101400 N76.0 Urine hcg (-) today, patient request [...] counseling and review of plan of care. [id number] Kristine Baires [facility] [address],[place] [address] 04/11/2022 10:04:33 04/11/2022 11:47:18 Lesion of vulva 032765181 N90.89 Lesion highly suspicious for HSV infection, [...] plan of care. Contracept ion care management 266481358 Z30.9 Venereal d isease screening 893055114 Z11.3 [id number] Jacey Chavez [place] [address] [address] 09/06/2022 16:53:35 09/06/2022 17:13:39 Contraception care management 081579344 Z30.9 Discussed all control options in depth [...] counseling and review of plan of care. [id number] Jacey Chavez [facility] [address],[place] [address] 09/07/2022 14:11:06 09/07/2022 15:29:09 Insertion of subcutaneous contraceptive 730706791 Z30.9 Patient is here currently on her [...] 3mos med check or sooner if needed [id number] Jacey Chavez [facility] [address],[place] [address] 11/21/2022 15:04:09 11/21/2022 17:23:09 Venereal disease screening 677525470 Z11.3 STD screen swab updatedSTD serum panel updatedNew sexual partnerWil l contact with results Time spent in visit is a total of 15 mins with at least 50% of visit consisting of counseling and review of plan of care. Abnormal u terine bleeding 4474763959 9100 N93.9 UPT negIf continues consider course of estradiol 1mg x 20 days.Under stands that this can be normal 3-6mos with initiation of nexplanon. Will update us Sexually t ransmitted infectious disease 7993558 A64 [id number] [facility] [address],[place] [address] 12/25/2022 14:42:59 12/25/2022 15:32:53 Venereal disease screening 731988081 Z11.3 Here today for JARAD.Took all abxPartner treatedUri ne JARAD sentNEg sxs Time spent in visit is a total of 10 mins with at least 50% of visit consisting of counseling and review of plan of care.Not including time spent on procedure. Removal of subcutaneous contraceptive 840304965 Z30.46 Removal site was cleansed with betadine and 3cc of lidocaine used for anesthesia . Device was removed in normal fashion without difficulty . Steri stips and pressure bandage placed. Opts to use CondomsUnd erstands there is no contracept ion (unless uses condoms) once device is removed.Un angela g verbalized . [id number] Jacey Chavez [facility] [address],[place] [address] 04/24/2023 15:42:02 04/25/2023 12:38:44 Easy bruising 970329377 R58 Today we discussed updating lab work [...] review of plan of care. Cystic acne 37610708 L70 .0 N92.0 Consider derm referral if neeeded [id number] Jacey Chavez [facility] [address],[place] [address] 05/01/2023 15:08:53 05/02/2023 16:57:16 Cystic acne 68316645 L70.0 N92.0 Today we agreed to consider [...] counseling and review of plan of care. [id number] Jacey Chavez [facility] [address],[place] [address] 06/19/2023 09:20:29 06/19/2023 09:55:28 Furuncle of vulva 605717857 N76.4 Boils on vulva found on exam [...] plan of care. Reproducti ve care management 448590507 Z31.9 Trying to conceiveWi ll start PNV Counseled on reproducti ve timeline, signs/sx's . [id number] Jones Koenig MD [place] [address] [address] 10/17/2023 12:37:37 10/17/2023 13:41:58 Abnormal uterine bleeding 6211687847 9100 N93.9 23-year-ol d patient with abnormal [...] was counseling . Disorder o f menstruation 044788043 N92.6 [id number] Qi Garvin [place] [address] [address] 10/28/2023 14:29:56 10/28/2023 15:30:52 Abnormal uterine bleeding 1384575591 9100 N93.9 23-year-ol d patient with abnormal [...] ce. More than 50% was counseling . [id number] Jones Koenig MD [place] [address],[place] [address] 10/28/2023 15:18:58 10/28/2023 16:39:54 Abnormal uterine bleeding 9527218347 9100 N93.9 this patient is a 23-year-ol [...] than 50% was counseling . [id number] [facility] [address],[place] [address] 02/19/2024 14:52:45 02/19/2024 15:21:14 Uterine size for dates discrepancy 848693807 O26.841 Z3A.01 [id number] [facility] [address],[facility] [place] [address] 02/19/2024 14:52:59 02/19/2024 16:08:22 Amenorrhea 97391020 N91.2 +UPTcontin ue PNVplan 12 week NIPS and new obpap collected Gynecologi c examination 40880111 Z01.419 Nausea and vomiting 1693 2000 R11.2 [id number] [facility] [address],[place] [address] 04/01/2024 17:27:04 04/02/2024 07:54:22 screening 078541178 Z36.82 Z3A.12 [id number] Sakina Cantrell CNM [place] [address],[place] [address] 04/01/2024 17:27:30 04/02/2024 17:31:29 Gestation period, 12 weeks 31529658 Z3A.12 continue vitamin [id number] [facility] [address],[place] [address] 04/29/2024 16:22:12 04/29/2024 16:50:41 Gestation period, 16 weeks 01615492 Z3A.16 continue vitamin Anxiety 27787333 F41.9 start zoloft 25 mg daily, if any suicidal thoughts to edse risks and benefitsf/ u 4 weeks or sooner if neededmay have reglan if calls [id number] [facility] [address],[place] [address] 05/26/2024 14:35:17 05/26/2024 17:52:03 screening for malformation 207535046 Z36.3 Z3A.20 [id number] Sakina Cantrell [facility] [address],[place] [address] 05/27/2024 17:14:49 05/28/2024 10:29:26 Gestation period, 20 weeks 95456959 Z3A.20 Anxiety 52276718 F41.9 continue zoloft 25 mg daily, if any suicidal thoughts to edse risks and benefitsf/ u 4 weeks or sooner if neededmay have reglan if calls [id number] [facility] [address],[place] [address] 06/24/2024 11:40:27 06/24/2024 12:37:10 Low lying placenta 799459906 O44.42 Z3A.24 [id number] [facility] [address],[place] [address] 06/24/2024 11:41:44 06/24/2024 12:43:47 Gestation period, 24 weeks 370589189 Z3A.24 [id number] [facility] [address],[place] [address] 07/31/2024 11:09:29 07/31/2024 11:59:32 Gestation period, 29 weeks 22133668 Z3A.29 [id number] [facility] [address],[place] [address] 08/12/2024 09:12:24 08/12/2024 10:05:14 Uterine size for dates discrepancy 683237144 O26.843 Z3A.31 [id number] Sakina Cantrell [facility] [address],[place] [address] 08/12/2024 09:12:58 08/12/2024 10:58:29 Gestation period, 31 weeks 02872128 Z3A.31 [id number] [facility] [address],[place] [address] 08/26/2024 15:22:41 08/26/2024 16:03:35 Gestation period, 33 weeks 23476257 Z3A.33 Infection of tooth 62159 8007 K04.7 [id number] Sakina Cantrell [facility] [address],[place] [address] 09/09/2024 14:13:46 09/09/2024 14:53:11 Gestation period, 35 weeks 16319864 Z3A.35 [id number] [facility] [address],[place] [address] 09/16/2024 13:54:55 09/16/2024 14:31:09 Low maternal weight gain 03754736 O26.13 Z3A.36 [id number] [facility] [address],[place] [address] 09/16/2024 13:55:25 09/16/2024 15:17:37 Gestation period, 36 weeks 57020682 Z3A.36 Anxiety 12965493 F41.9 [id number] Sakina Cantrell [facility] [address],[place] [address] 09/23/2024 14:14:35 09/23/2024 14:44:24 Gestation period, 37 weeks 03932206 Z3A.37 [id number] Sakina Cantrell [facility] [address],[place] [address] 09/30/2024 13:57:10 09/30/2024 14:34:28 Gestation period, 38 weeks 88056851 Z3A.38 [id number] Corine Novak [place] [address],[place] [address] 2024 17:17:21 10/04/2024 23:16:42 Abdominal pain in 111003376 O99.891 [id number] Sakina Cantrell [facility] [address],[place] [address] 10/07/2024 09:37:07 10/07/2024 10:22:59 Gestation period, 39 weeks 06280666 Z3A.39 Health Concerns Section Related Observation LastModified by Organization Detai ls LastModified Time None Recorded Concern Status LastModified by Organization Details LastModified Time None Recorded Advance Directives Directive None Recorded Payers Encounter Date Sequence Insurance Name Policy Number Policy Shine Covered Member ID Shine Member ID Guarantor Name 09/16/2024 1 [place] [id number] 1 Cornel Gary [id number] S Mae Allgire 09/16/2024 2 [employer] [facility] ON OR AFTER 02/02/21 (MEDICAID REPLACEMENT - HMO) Mae Allgire [id number] Mae Allgire 09/23/2024 1 [place] [id number] 1 Cornel Gary [id number] S Mae Allgire 09/23/2024 2 [employer] [facility] ON OR AFTER 02/02/21 (MEDICAID REPLACEMENT - HMO) Mae Allgire [id number] Mae Allgire 09/30/2024 1 [place] [id number] 1 Cornel Gary [id number] S Mae Allgire 09/30/2024 2 [facility] ON OR AFTER 02/02/21 (MEDICAID REPLACEMENT - HMO) Mae Allgire [id number] Mae Allgire 09/30/2024 1 [place] [id number] 1 Cornel Gary [id number] S Mae Allgire 09/30/2024 2 [facility] ON OR AFTER 02/02/21 (MEDICAID REPLACEMENT - HMO) Mae Allgire [id number] Mae Allgire 10/07/2024 1 [place] [id number] 1 Cornel Gary [id number] S Mae Allgire 10/07/2024 2 [facility] ON OR AFTER 02/02/21 (MEDICAID REPLACEMENT - HMO) Mae Allgire [id number] Mae Allgire OBGyn Episode Ob Episode Information Episode Created Date Number of Fetuses Patient Bloodtype Patient rh Status Prepregnancy Weight lbs Domestic Partner Domestic Partner Phone Father Name Corporation Officer Status 04/01/20 24 1 A Positive 104 Stan Willyar d OPEN Fetus Data First Name Last Name Admitted to NICU Weight (g) Sex Living Outcome Pediatric Complications Fetus ID Race Codes Race Delivery Type [id number] Problems Problem Notes 32wk growth us Problem Name Start Date End Date Resolution Snomed Code Not e History of chlamydial infection 307349632 chl neg Alpha thalassemia 04/16/2024 52426742 s ilent carrier; low risk Low lying placenta 086116328 r esolved Valerio Calculation Initial Valerio Date [...] Weight in lbs Pre/Post Dialysis Refused Weight 104.589889611232 BP Diastolic BP Location Tested BP Systolic [...] Type Weight in lbs Pre/Post Dialysis Refused 105.492607862928 BP Diastolic BP Location Tested BP Systolic [...] Type Weight in lbs Pre/Post Dialysis Refused 109.368024891484 BP Diastolic BP Location Tested BP Systolic [...] Type Weight in lbs Pre/Post Dialysis Refused 118.466069593684 BP Diastolic BP Location Tested BP Systolic [...] Type Weight in lbs Pre/Post Dialysis Refused 122.409514831132 BP Diastolic BP Location Tested BP Systolic [...] Type Weight in lbs Pre/Post Dialysis Refused 123.961686277538 BP Diastolic BP Location Tested BP Systolic [...] Weight in lbs Pre/Post Dialysis Refused Weight 123.578747133441 BP Diastolic BP Location Tested BP Systolic [...] Weight in lbs Pre/Post Dialysis Refused Weight 125.978918776177 BP Diastolic BP Location Tested BP Systolic [...] Type Weight in lbs Pre/Post Dialysis Refused 126.35865183143 BP Diastolic BP Location Tested BP Systolic [...] Type Weight in lbs Pre/Post Dialysis Refused 127.400172207823 BP Diastolic BP Location Tested BP Systolic [...] Weight in lbs Pre/Post Dialysis Refused Weight 131.142400805618 BP Diastolic BP Location Tested BP Systolic [...] Weight in lbs Pre/Post Dialysis Refused Weight 131.885381806024 BP Diastolic BP Location Tested BP Systolic BP Type 78 131 Fetus Heart Rate Present Fetus Movement Comments Flowsheet Date 10/07/2024 Frias Score Blood Edema Fundus Height Fundus Units Glucose Ketones Leukocytes Nitrite Labor Signs Protein Cervic Dilation Cervic Effacement Cervic Station neg 37 cm Type Weight in lbs Pre/Post Dialysis Refused 130.771337845513 BP Diastolic BP Location Tested BP Systolic [...]
--- OUTSIDE RECORDS SUMMARY | 2024-10-13 17:58 | XMS_ITS | Referral Summary ---
Author Organization [facility] Address [address] [place] [address] Care Team Providers Care Director Supply Chain Name Role Phone None, Physician Primary Care Provider Unavailabl e Source Comments [facility],non-owned Affiliates and Associated Physician Practices is amultiple site organization consisting of ambulatory clinics and hospital sitesin [place], [place], [place] and [place]. This disclosure is being madepursuant to the Care Everywhere program and may not contain all information available regarding this patient. Last updated 18.[facility] [employer] Allergies Active Allergy Reactions Criticality Noted Date [...] as an outpatient with Dr. Lomas at [facility] Constipation, unspecified constipation type 01/03 [...] 09/17/2018 Assessment & Plan (09/17/2018 8:55 PM GIZZARD SKIN REMOVER): 17 y.o. F with DMDD, Bipolar disorder [...] 3:15PM F/u with [facility] on Saturday aJde, Fine Arts Model at [facility] ([phone]) Counseling regarding goals of care 01/28/2012 Overview [...] Overview (03/26/2012): Followed by Dr. Nilsa Rivera @[phone], ALT# [phone]. Spoken to during the 01/24 admission to [...] therapist until a bed is available at [facility]. 03/24/[address] Nilsa Cartagena-Abel @[phone], ALT# [phone], Psychiatrist taking care of Mae. She informed [...] bloody bowel movements. Social/Behavioral for placement at [facility] was explored but no bed was [...] 12:15 AM 01/16/2023 3:33 PM Care Teams Director Supply Chain Relationship Specialty Start Date End Date None, Physician [address] [place] [address] PCP - General 03/25/23
--- OUTSIDE RECORDS SUMMARY | 2024-10-13 17:58 | XMS_ITS | Encounter Summary ---
Author Organization [facility] Address 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
--- OUTSIDE RECORDS SUMMARY | 2024-10-13 17:58 | XMS_ITS | Encounter Summary ---
Author Organization [facility] Address [address] [place] [address] Care Team Providers Care Outpatient Surgery Rn Name Role Phone Unavailable Primary Care Provider Unavailabl e Encounter Details Date Type Department Care Team (Late st Contact Info) Description 2002 Outpatient Historical [facility] - [facility] [address] [address] Rodger Verma MD [id number] [place] [address] Social History Tobacco Use Types Packs/Day Years Used Date Smoking Tobacco: Never Assessed Comments Unknown Sex and Gender Information Value Date Recorded Sex Assigned at Not on file 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
--- OUTSIDE RECORDS SUMMARY | 2024-10-13 17:58 | XMS_ITS | Encounter Summary ---
Author Organization [facility] Address 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
--- OUTSIDE RECORDS SUMMARY | 2024-10-13 17:58 | XMS_ITS | Encounter Summary ---
Author Organization [facility] Address 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 [employer] Chips Name Role Phone Unavailable Primary Care Provider Unavailabl e Encounter Details Date Type Department Care Team (Late st Contact Info) Description 2002 Outpatient Historical [facility] - [facility] [address] [address] Radhika Emmanuel MD NO ADDRESS ON FILE Social History Tobacco Use Types Packs/Day Years Used Date Smoking Tobacco: Never Assessed Comments Unknown Sex and Gender Information Value Date Recorded Sex Assigned at Not on file 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
--- OUTSIDE RECORDS SUMMARY | 2024-10-13 17:58 | XMS_ITS | Patient Health Summary ---
Author Organization [facility] Address [address] [place] [address] Care Team Providers Care Carpentry Supervisor Name Role Phone None, Physician Primary Care Provider Unavailabl e Note from [facility],non-owned Affiliates and Associated Physician Practices is amultiple site organization consisting of ambulatory clinics and hospital sitesin [place], [place], [place] and [place]. This disclosure is being madepursuant to the Care Everywhere program and may not contain all information available regarding this patient. Last updated 18.[facility] Allergies * Bisacodyl(Rash) -Medium Criticality * [...] CHILD LIFE(Performed 01/25/2012) * IP CONSULT TO GARBAGE PICK UP WORKER(Performed 01/25/2012) * BASIC METABOLIC PANEL (CALCIUM TOTAL)(Performed 01/22/2012) * XR ABD OBSTRUCTION SERIES 2VW(Performed 01/22/2012) Performed for Constipation * XR ABD OBSTRUCTION SERIES 2VW(Performed 12/21/2011) Performed for Constipation * IP CONSULT TO GARBAGE PICK UP WORKER(Performed 11/19/2011) * IGA BLOOD(Performed 11/19/2011) * TISSUE [...] Urine Negative Negative 03/25/2023 6:24 PM CDT [facility] Urine URINE / Unknown 03/25/2023 6 :13 PM CDT 03/25/2023 6:24 PM CDT Latasha Mooney DO LAB - POINT OF CARE ORDERABLES Performing Organization Address City/[facility]/ZIP Co de Phone Number [facility] [address] [place] [address] * HCG URINE QUAL POCT NOTIFICATION (03/25/2023 4:58 PM CDT) Only the most recent of4 resultswithin the time period is included. Comment Notification Label Only - See Separate Report 03/25/2023 7:00 PM CDT [facility] Urine URINE / Unknown 03/25/2023 4 :58 PM CDT 03/25/2023 5:36 PM CDT Nithin Baig MD LAB - URINALYSIS ORD ERABLES Performing Organization Address City/[facility]/ZIP Co de Phone Number [facility] [address] [place] [address] * TISSUE TRANSGLUTAMINASE AB IGA (01/16/2023 4:11 AM CDT) Only the most recent of2 resultswithin the time period is included. Tissue Transglutaminase (tTG) Ab, IgA <2 0 - 3 U/mL 01/17/2023 11:02 PM CDT [employer] ([facility]) Comment: INTERPRETIVE INFORMATION: Tissue Transglutaminase (tTG) [...] positive predictive value for disease. Performed By: [employer] [address] [place] [id number] Formal Wear Rental Clerk: Luis Fernando Krishna MD, PhD Blood BLOOD SPECIMEN / Unknown Lab Venipuncture / Unknown 01/16/2023 4:11 AM CDT 01/16/2023 5:23 AM CDT Tory Jin MD LAB - SEROLOGY ERIN AGUILAR [facility] [employer] ([facility]) [address] [place] [address], [facility] * TSH REFLEX FREE T4 (01/16/2023 4:10 AM CDT) TSH 1.020 0.350 - 4.940 uIU/mL 01/16/2023 5:42 AM CDT [facility] Blood BLOOD SPECIMEN / Unknown Lab Venipuncture / Unknown 01/16/2023 4:10 AM CDT 01/16/2023 5:01 AM CDT Tory Jin MD LAB - CHEMISTRY ORD HUGH Performing Organization Address City/[facility]/ZIP Co de Phone Number [address] [address], [place] [phone] * IGA BLOOD (01/16/2023 4:10 AM CDT) Only the most recent of2 resultswithin the time period is included. IgA 184 61 - 356 mg/dL 01/16/2023 5:38 AM CDT [facility] Blood BLOOD SPECIMEN / Unknown Lab Venipuncture / Unknown 01/16/2023 4:10 AM CDT 01/16/2023 5:24 AM CDT Tory Jin MD LAB - CHEMISTRY ORD ERABLES [address] [address], [place] [phone] * XR ABDOMEN KUB (01/15/2023 1:07 AM CDT) Anatomical Region Laterality Modality Abdomen Radiographic Melina ging 01/15/2023 8:18 AM CDT Impressions 01/15/2023 8:28 AM CDT IMPRESSION: Nonobstructive bowel gas pattern with moderate colonic stool. > Dictated by Zenaida Aden DO (Cashier Or Checker Stock Clerk) 01/15/2023 8:18 AM Xiomy Boyd MD have [...] stool. > Dictated by Zenaida Aden DO (Cashier Or Checker Stock Clerk) 01/15/2023 8:18 AM Xiomy Boyd MD have personally reviewed and interpreted this examination/study. > Interpreting Provider: Xiomy Levy MD on 01/15/2023 8:28 AM Manju Meyer MD DIAGNOSTIC IMAGING O RDERABLES * BASIC METABOLIC PANEL (CALCIUM TOTAL) (01/14/2023 11:42 PM CDT) Only the most recent of2 resultswithin the time period is included. BUN 7 7 - 26 mg/dL 01/15/2023 12:07 AM CDT [facility] Creatinine 0.74 0.56 - 0.96 [...] 9 7 - 23 01/15/2023 12:07 AM [facility] Osmolality Calculated 285 270 - 300 mOsm/kg 01/15/2023 12:07 AM [facility] eGFR by CKD-EPI >90 >=90 mL/min/1.7 3 m2 01/15/2023 12:07 AM [facility] Blood BLOOD SPECIMEN / Unknown Venipuncture / Unknown 01/14/2023 11:42 PM CDT 01/14/2023 11:54 PM CDT Manju Meyer MD LAB - CHEMISTRY ERIN [facility] Organization Address City/State/[facility] Co de Phone Number [facility] [address] [place] [phone], [facility] [phone] * (ABNORMAL) URINALYSIS REFLEX TO MICROSCOPIC NO CULTURE (04/19/2022 5:28 PM CDT) Color UA Red(A) Straw, Yellow 04/19/2022 5:50 PM [facility] Clarity UA Cloudy(A) Clear 04/19/2022 5:50 PM [facility] Specific Spring UA 1.010 1.005 - 1.030 04/19/2022 5:50 PM [facility] pH UA 8.0 5.0 - 8.0 pH 04/19/2022 5:50 PM [facility] Protein UA 1+(A) Negative 04/19/2022 5:50 PM [facility] Glucose UA Negative Negative 04/19/2022 5:50 PM [facility] Ketone UA Trace(A) Negative 04/19/2022 5:50 PM [facility] Bilirubin UA Negative Negative 04/19/2022 5:50 PM T [facility] Blood UA 3+(A) Negative 04/19/2022 5:50 PM [facility] Nitrite UA Negative Negative 04/19/2022 5:50 PM [facility] Leukocyte Esterase Negative Negative 04/19/2022 5:50 PM [facility] Urobilinogen UA Negative Negative mg/dL 04/19/2022 5:50 PM [facility] RBC UA >100(A) None Seen, 0-2, 3-5 /HPF 04/19/2022 5:50 PM [facility] WBC UA 21-50(A) None Seen, 0-5 /HPF 04/19/2022 5:50 PM [facility] Bacteria UA Trace(A) None /HPF 04/19/2022 5:50 PM [facility] Squamous Epithelial Cells UA 0-2 None Seen, 0-2, 3-5 /HPF 04/19/2022 5:50 PM [facility] Amorphous Crystals Moderate(A) None /HPF 04/19/2022 5:50 PM T [facility] Urine URINE SPECIMEN OBTAINED BY CLEAN CATCH PROCEDURE / Unknown Collection / Unknown 04/19/2022 5:28 PM CDT 04/19/2022 5:31 PM CDT [facility] - 04/19/2022 5:50 PM CDT Paty Saldivar PA-C LAB - URINALYSIS OR DERABLES [facility] [address] [place] [phone], [facility] [phone] * CT HEAD NON CONTRAST - suspected intracranial hemorrhage (04/19/2022 4:30 PM CDT) Anatomical Region Laterality Modality Head Computed Tomogra phy 04/19/2022 4:47 PM CDT Impressions 04/20/2022 7:54 AM CDT IMPRESSION: 1.No acute intracranial hemorrhage, midline shift, or significant mass effect. > Dictated by Russell Bliss MD (vice president corporate communications) IDolores MD have personally reviewed and interpreted this examination/study. > Interpreting Provider: Dolores Porras MD on 04/20/2022 7:54 AM Narrative 04/20/2022 7:54 AM CDT PROCEDURE: CT HEAD WO CONTRAST, DATE/TIME OF EXAM: 04/19/2022 4:31 PM, LOCATION [facility] INDICATION: R11.2: Non-intractable vomiting with nausea, [...] DATE/TIME OF EXAM: 04/19/2022 4:31 PM, LOCATION [facility] INDICATION: R11.2: Non-intractable vomiting with nausea, [...] Dictated by Russell Bliss MD (vice president corporate communications) IDolores MD have personally reviewed and interpretedthis examination/study. > Interpreting Provider: Dolores Porras MD on 04/20/2022 7:54 AM Charles Dickson MD CT ORDERABLES * (ABNORMAL) COMPREHENSIVE METABOLIC PANEL (04/19/2022 3:02 PM CDT) Only the most recent of4 resultswithin the time period is included. BUN 13 7 - 26 mg/dL 04/19/2022 3:39 PM [facility] Creatinine 0.72 0.56 - 0.96 mg/dL 04/19/2022 3:39 PM [facility] Sodium 143 136 - 145 mmol/L 04/19/2022 3:39 PM [facility] Potassium 3.2(L) 3.5 - 4.5 mmol/L 04/19/2022 3:39 PM [facility] Chloride 108(H) 98 - 107 mmol/L 04/19/2022 3:39 PM [facility] CO2 24 22 - 29 mmol/L 04/19/2022 3:39 PM [facility] Glucose 83 70 - 115 mg/dL 04/19/2022 3:39 PM [facility] Calcium 9.2 8.4 - 10.2 mg/dL 04/19/2022 3:39 PM [facility] Protein Total 7.2 6.0 - 8.3 g/dL 04/19/2022 3:39 PM [facility] Albumin 3.9 3.4 - 5.0 g/dL 04/19/2022 3:39 PM [facility] Bilirubin Total 0.9 0.2 - 1.2 mg/dL 04/19/2022 3:39 PM [facility] Alkaline Phosphatase 49 40 - 150 U/L 04/19/2022 3:39 PM [facility] ALT 39 5 - 55 U/L 04/19/2022 3:39 PM [facility] AST 35(H) 5 - 34 U/L 04/19/2022 3:39 PM [facility] Anion Gap 14 8 - 18 04/19/2022 3:39 PM [facility] BUN/Creatinine Ratio 18 7 - 23 04/19/2022 3:39 PM [facility] Osmolality Calculated 295 270 - 300 mOsm/kg 04/19/2022 3:39 PM [facility] Albumin/Globulin Ratio 1.2 1.1 - 2.3 04/19/2022 3:39 PM [facility] eGFR by CKD-EPI >90 >=90 mL/min/1.7 3 m2 04/19/2022 3:39 PM [facility] Blood BLOOD SPECIMEN / Unknown Venipuncture / Unknown 04/19/2022 3:02 PM CDT 04/19/2022 3:07 PM T Paty Saldivar PA-C LAB - CHEMISTRY ORD ERABLES [facility] [address] [place] [address], [facility] [phone] * HCG BETA BLOOD QUANTITATIVE (04/19/2022 3:02 PM CDT) Beta-hCG Total Quantitative <3 mIU/mL 04/19/2022 3:44 PM [facility] Comment: This assay is cleared for use [...] Saldivar PA-C LAB - CHEMISTRY ORD ERABLES [address] [address], [facility] [phone] * (ABNORMAL) CBC W AUTO DIFFERENTIAL (01/16/2022 5:10 PM CDT) WBC 14.5(H) 4.4 - 10.7 x10E9/L 01/16/2022 5:16 PM [facility]T [facility] WBC Corrected 01/16/2022 5:16 PM [facility]T [facility] RBC 4.80 3.80 - 5.20 x10E12/L 01/16/2022 5:16 PM [facility]T [facility] Hemoglobin 12.9 12.0 - 15.6 gm/dL 01/16/2022 5:16 PM [facility]T [facility] Hematocrit 38.9 35.9 - 45.5 % 01/16/2022 5:16 PM CDT [facility] MCV 81.0 80.7 - 98.3 fl 01/16/2022 5:16 PM CDT [facility] MCH 26.9 26.7 - 34.0 pg 01/16/2022 5:16 PM CDT [facility] MCHC 33.2 30.8 - 35.9 gm/dL 01/16/2022 5:16 PM [facility]T [facility] Platelet Count 377 153 - 416 x10E9/L 01/16/2022 5:16 PM CDT [facility] RDW-CV 13.4 12.1 - 14.9 % 01/16/2022 5:16 PM CDT [facility] MPV 9.9 9.4 - 12.9 fl 01/16/2022 5:16 PM [facility]T [facility] Neutrophils % 79.3(H) 44.0 - 73.0 % 01/16/2022 5:16 PM [facility]T [facility] Lymphocytes % 14.4(L) 20.0 - 43.0 % 01/16/2022 5:16 PM [facility]T [facility] Monocytes % 5.0 5.0 - 13.0 % 01/16/2022 5:16 PM [facility]T [facility] Eosinophils % 0.3 0.0 - 6.0 % 01/16/2022 5:16 PM [facility]T [facility] Basophils % 0.5 0.0 - 2.0 % 01/16/2022 5:16 PM [facility]T [facility] Immature Granulocytes 0.5 0 - 1 % 01/16/2022 5:16 PM CDT [facility] Neutrophil Absolute 11.48(H) 2.01 - 7.14 x10E9/L 01/16/2022 5:16 PM [facility]T [facility] Lymphocytes Absolute 2.08 1.07 - 3.94 x10E9/L 01/16/2022 5:16 PM CDT [facility] Monocytes Absolute 0.73 0.26 - 1.07 x10E9/L 01/16/2022 5:16 PM CDT [facility] Eosinophils Absolute 0.04 0 - 0.47 x10E9/L 01/16/2022 5:16 PM [facility]T [facility] Basophils Absolute 0.07 0 - 0.08 x10E9/L 01/16/2022 5:16 PM [facility]T [facility] Immature Granulocytes Absolute 0.07(H) 0.00 - 0.06 x10E9/L 01/16/2022 5:16 PM [facility]T [facility] nRBC Auto 0 /100 WBC 01/16/2022 5:16 PM T [facility] Blood BLOOD SPECIMEN / Unknown Venipuncture / Unknown 01/16/2022 5:10 PM CDT 01/16/2022 5:13 PM CDT Star Godinez INDUSTRIAL ANALYST-SCIENCE TUTOR LAB - HEMATOLOGY ORDERABLES [facility] [address] [address] * CK BLOOD (01/16/2022 5:10 PM CDT) CK 104 29 - 168 U/L 01/16/2022 5:31 PM [facility]T [facility] Blood BLOOD SPECIMEN / Unknown Venipuncture / Unknown 01/16/2022 5:10 PM CDT 01/16/2022 5:13 PM CDT Star Godinez APRN-SCIENCE TUTOR LAB - CHEMISTRY ORDERABLES [facility] [address] [address] * IMAGING/RADIOLOGY/XRAY RESULTS ORDER (04/27/2016 10:46 PM [...] 1:38 PM Referral made to Bree @ [facility] [phone] re: home visits. Kamini Sharif RN-Case Management [phone] Procedure Note Kamini Sharif, RN, RN - 02/01/2012 1:38 PM CDT Referral made to Bree @ [facility] [phone] re: home visits. Kamini Sharif RN-Case Management [phone] Swapna Guy MD INPATIENT ANCILLARY CONSULT * [...] and multiple admissions/work-ups for her constipation since welt sole layer. Has tried Miralax, mag citrate, and enemas [...] WBC,RBC,HGB,HCT,MCV,MCH,MCHC,RDW,PLTCOUNT,SEGPCT,BANDPCT,LYMPHPCT, ATYPLYMPHPCT,MONOCYTPCT,EOSINPCT,BASOPHILPCT,METAPCT,MYELOCYTPCT,P ROMELOPCT,BLASTPCT,PLASMAPCT,NRBC,GRANPCT,MONOCYTPCT,EOSINPCT,BASO PHILPCT in the last [id number] hours Assessment and Plan 11 yo female [...] CDT) Case Report Surgical Pathology Report Case: [id number] Authorizing Provider: Patric Good MD Ordering Provider: Geraldo Worley MD Ordering Location: [facility] Collected: 01/31/2012 11:57 AM Pathologist: Berenice Wilson MD Received: 01/31/2012 12:56 PM Signed Out: 02/01/2012 5:08 PM (Final) Specimen: Rectum 02/01/2012 5:08 PM [facility] Final Diagnosis RECTUM, SUCTION BIOPSY: - GANGLION CELLS PRESENT (SEE COMMENT). COMMENT: While the size of this biopsy is adequate in the usual age group (neonates) in which suction biopsy is performed, it is suboptimal for a 11 year old patient in that it contained only mucosa, muscularis mucosa and a thin superficial portion of the submucosa. 02/01/2012 5:08 PM [facility] Clinical History The patient is a 11-year-old girl, with chronic constipation, who underwent fecal disimpaction, proctosigmoidoscopy and rectal biopsy to rule-out Hirschsprung's disease. 02/01/2012 5:08 PM [facility] Gross Description The specimen is received [...] for acetylcholinesterase stain. (GAILF/roberto) 02/01/2012 5:08 PM [facility] Microscopic Description 10 H&E. Examination of 38 levels of the rectal suction biopsy revealed two ganglion cells; there are no hypertrophic nerve trunks. 02/01/2012 5:08 PM [facility] Disclaimer The performance characteristics of all immunohistochemical and indirect immunofluorescence stains (if any) cited in this report were determined by the Histopathology Laboratory of [facility] (immunohistochemistry) or the Histology Laboratory of [facility] (indirect immunofluorescence) in compliance with CLIA `88 regulations. Some of these tests rely on the use of analyte-specific reagents and are subject to specific labeling requirements by the FDA. Such tests were developed by the Histopathology Laboratory of [facility] or the Histology Laboratory of [facility] and have not been cleared or approved by the FDA. The FDA has determined that such clearance or approval is not necessary. These tests are used for clinical purposes and should not be regarded as investigational or for research. This case has been personally reviewed and interpreted by the attending (teaching) pathologist. 02/01/2012 5:08 PM CDT [facility] Miscellaneous samples (specimen) ENTIRE RECTUM / Unknown 01/31/2012 11:57 AM CDT 01/31/2012 12:56 PM CDT Patric Good MD LAB - PATHOLOGY/CYTO LOGY ORDERABLES [facility] [address] [facility] [place] [address] * FL LOWER GI WATER SOLUBLE (01/29/2012 [...] y.o. 3 m.o. : 2000 Medical Record: [id number] I attempted to interview pt; however, she [...] care at discharge. Family preservation services through [facility] and Family services may also be able to provide in-home therapy and parent training necessary to change chronic maladaptive patterns. Dr. Bree Hermosillo is available for consultation this afternoon, pager: [phone] Sakina Lopez, PhD Clinical Psychologist [place] License [id number] Procedure Note Sakina Lopez, PhD - 01/25/2012 12:53 PM CDT Inpatient Psychology Consultation Name: Mae Frances Age: 11 y.o. 3 m.o. : 2000 Medical Record: [id number] I attempted to interview pt; however, she [...] intensity to attempt tobreak the cycle. Kathy Booekr should be considered for follow-up care atdischarge. [facility] may also be able to provide in-home therapyand parent training necessary to change chronic maladaptive patterns. Dr. Bree Hermosillo is available for consultation this afternoon, pager:[phone] Sakina Lopez, PhD Clinical Psychologist [place] License [id number] Swapna Guy MD INPATIENT CONSULT OR DERABLES [...] chart and in patient's room. [facility] ASSESSMENT [facility] [id number] Objective 1. Objective Information - Introduction: Patient is familiar to Child Life Services;Comfort measures offered 2. Diversional/Play Activities: Bedside activities provided;Diversional activities provided General Information Assessment Feelings: Expresses normal fear and anxiety.;Expresses anxiety related to pain. Assessment: Patient adjusting well to hospitalization at this time. Plan Child Life plan of care: Patient will be a primary followed by this Graphic User Interface Designer.;Provide developmentally appropriate therapeutic activities.;Provide relaxation, distraction and soothing techniques.;Continue to assess patient needs for changes.;Child Life Services will conduct individual sessions with patient.;Encourage patient to attend playroom/teen activity.;Encourage peer interactions (if age-appropriate).;Provide opportunity for expression of emotions. DHRUV Lanier 01/25/2012 12:53 PM Procedure Note Ginger Wilkerson CCLS - 01/25/2012 12:[address] Guy informed [facility] about patient's need for behaviormodification. [facility] [employer] created incentive chart and explained chart andconsequences to patient. Patient acknowledged she understood information.Chart is located in patient's hard chart and in patient's room. [facility] [id number] Objective 1. Objective Information - Introduction: Patient is familiar to [facility] Services;Comfort measures offered 2. Diversional/Play Activities: Bedside activities provided;Diversionalactivities provided General Information Assessment Feelings: Expresses normal fear and anxiety.;Expresses anxiety related topain. Assessment: Patient adjusting well to hospitalization at this time. Plan Child Life plan of care: Patient will be a primary followed [facility].;Provide developmentally appropriate therapeuticactivities.;Provide relaxation, distraction and soothingtechniques.;Continue to assess patient needs for changes.;Child LifeServices will conduct individual sessions with patient.;Encourage patientto attend playroom/teen activity.;Encourage peer interactions (ifage-appropriate).;Provide opportunity for expression of emotions. DHRUV Lanier 01/25/2012 12:53 PM Swapna Guy MD INPATIENT CONSULT OR DERABLES * IP CONSULT TO GARBAGE PICK UP WORKER (01/25/2012 12:09 PM CDT) Only the most [...] is in the process of moving from [place] to [place], [place] Tory CristinaPetra Pineda COURT CLERK [phone] Procedure Note Queenie Pinedan CristinaAGGIE - 01/25/2012 12:06 PM CDT New consult received on pt today, worker in contact with Sakina FunesPsychology, with Dr Swapna Guy, with 3 So RN and telephoned pt'smother Mother coming in later today, will meet with her about care and treatmentof pt with chronic constipation. Mother state she is in the process ofmoving from [place] to [place], [place] Tory CristinaPetra Pineda [facility] [phone] Swapna Guy MD INPATIENT ANCILLARY CONSULT * CULTURE ANAEROBE (09/29/2009 4:00 PM MUSIC PROMOTER) Report [facility] Comment: Final - PROMPT RESP LEFT RETROPHARYNGEL ABSCESS GRAM STAIN Moderate WBC's Moderate RBC'S No organisms seen CULTURE PEPTOSTREPTOCOCCUS ANAEROBIUS Rare PREVOTELLA INTERMEDIA Rare Beta Lactamase Test, Positive SPECIMEN FROM ABSCESS / Unknown 09/29/2009 4:00 PM MUSIC PROMOTER Shena Abbott MD LAB - MICROBIOLOGY O RDERABLES [facility] * CULTURE ABSCESS (09/29/2009 4:00 PM MUSIC PROMOTER) Report [facility] Comment: Final - PROMPT RESP LEFT RETROPHARYNGEAL ABSCESS GRAM STAIN Heavy RBC'S Moderate WBC's No organisms seen CULTURE ALPHA HEMOLYTIC STREPTOCOCCUS Moderate Two colony types NON HEMOLYTIC STREP Rare SPECIMEN FROM ABSCESS / Unknown 09/29/2009 4:00 PM MUSIC PROMOTER Shena Abbott MD LAB - MICROBIOLOGY O RDERAIRMA Performing Organization Address [facility] Co de Phone Number [facility] * GLUCOSE (09/29/2009 12:50 PM MUSIC PROMOTER) Glucose 90 70 - 106 mg/dl [facility] Specimen Type/Condition [facility] BLOOD SPECIMEN / Unknown 09/29/2009 12:50 PM MUSIC PROMOTER Libra Somers DO LAB - CHEMISTRY ERIN AGUILAR Performing Organization Address [facility] de Phone Number [facility] * (ABNORMAL) LYTES (NA K CL CO2) BLOOD (09/29/2009 12:50 PM MUSIC PROMOTER) Sodium 136(L) 137 - 145 mmol/L [facility] Potassium 4.2 3.5 - 5.1 mmol/L [facility] Chloride 97(L) 98 - 107 mmol/L [facility] CO2 28.6(H) 18 - 27 mmol/L [facility] Specimen Type/Condition [facility] BLOOD SPECIMEN / Unknown 09/29/2009 12:50 PM MUSIC PROMOTER Libra Somers DO LAB - CHEMISTRY ERIN AGUILAR Performing Organization Address [facility] Co de Phone Number [facility] * CREATININE BLOOD (09/29/2009 12:50 PM MUSIC PROMOTER) Creatinine 0.38 0.03 - 0.59 mg/dl [facility] Specimen Type/Condition [facility] BLOOD SPECIMEN / Unknown 09/29/2009 12:50 PM MUSIC PROMOTER Libra Cristina Somers DO LAB - CHEMISTRY ERIN AGUILAR Performing Organization Address City/[facility] Co de Phone Number [facility] * BUN (09/29/2009 12:50 PM MUSIC PROMOTER) BUN 10.5 7 - 18 mg/dl [facility] Specimen Type/Condition [facility] BLOOD SPECIMEN / Unknown 09/29/2009 12:50 PM MUSIC PROMOTER Libra Cristina Somers DO LAB - CHEMISTRY ERIN AGUILAR Performing Organization Address [facility] de Phone Number [facility] * T4 FREE DIRECT DIALYSIS (08/24/2009 12:00 PM MUSIC PROMOTER) T4 Free Direct Dialysis 1.4 1.0 - 2.0 ng/dl [facility] BLOOD SPECIMEN / Unknown 08/24/2009 12:00 PM MUSIC PROMOTER Narrative Resulting Agency Comment Performed By [employer] [address] [place] [id number] Alyssa Lee MD LAB - CHEMISTRY ERIN AGUILAR Performing Organization Address City/[facility] Co de Phone Number [facility] * SOMATOMEDIN C (IGF-1) (08/24/2009 12:00 PM MUSIC PROMOTER) Somatomedin C 554 ng/ml BERNIE AGUILA [facility] Reference Range CARD INAL [facility] Comment: Pediatric Endocrine Laboratory Reference Ranges MALE [...] BLOOD SPECIMEN / Unknown 08/24/2009 12:00 PM MUSIC PROMOTER Narrative Resulting Agency Comment Performed By [facility] [address] [place] [address] Alyssa Lee MD LAB - CHEMISTRY ERIN AGUILAR [facility] * XR BONE AGE HAND AND WRIST (08/24/2009 11:54 AM MUSIC PROMOTER) Anatomical Region Laterality Modality Upper Extremity, Wrist / Hand Ot her 08/24/2009 11:5 4 AM MUSIC PROMOTER Narrative 08/24/2009 2:11 PM MUSIC PROMOTER Bone age- 5 years 9 months Method- Greulich and Judith Chronologic age- 8 years 10 months Standard deviation- 8.3 months Skeletal maturation- Normal Carla Dumont MD (resident). Reading Jerry BARRIENTOS MD Releasing Jerry BARRIENTOS MD Released Date Time- 08/24/091411 [employer] Directorsuma DUMONT MD - ALYSSA LEE,ALYSSA CASTAÑEDA- JESUS,ALYSSA [...] GROSS + MICRO EXAM (06/20/2009 11:10 AM MUSIC PROMOTER) Only the most recent of2 resultswithin the time period is included. Result CASE NUMBER [id number] [facility] PATH REPORT Comment: ORDERING PHYSICIAN BK [...] and interpreted by the attending (teaching) pathologist. School Of Nursing Director WANG SCHROEDER PATHOLOGIST Cory Stewart M.D. ELECTRONICALLY DARRYL Cory Stewart MISCELLANEOUS SAMPLES / Unknown 06/20/2009 11:10 AM MUSIC PROMOTER 06/20/2009 12:23 PM MUSIC PROMOTER Historical Provider LAB - PATHOLOGY/C YTOLOGY ORDERABLES [facility] PATH REPORT Care Teams Carpentry Supervisor Relationship Specialty Start Date End Date None, Physician [address] [place] [address] PCP - General 03/25/23
--- OUTSIDE RECORDS SUMMARY | 2024-10-13 17:58 | XMS_ITS | Clinical Summary ---
Author Organization [facility] Address [address] [place] [address] Care Team Providers Care Welt Stitcher Name Role Phone None, Physician Primary Care Provider Unavailabl e Source Comments [facility],non-owned Affiliates and Associated Physician Practices is amultiple site organization consisting of ambulatory clinics and hospital sitesin [place], [place], [place] and [place]. This disclosure is being madepursuant to the Care Everywhere program and may not contain all information available regarding this patient. Last updated 18.[facility] RiGHT BRAiN MEDiA Allergies Active Allergy Reactions Criticality Noted Date [...] as an outpatient with Dr. Lomas at [facility] Constipation, unspecified constipation type 01/03 Assessment [...] 09/17/2018 Assessment & Plan (09/17/2018 8:55 PM GANG PUSHER): 17 y.o. F with DMDD, Bipolar disorder [...] F/u with [facility] on Saturday Jade, Streetcar Repairer at Kathy [phone]) Counseling regarding goals of care 01/28/2012 Overview [...] several weeks. If unable to transfer to [facility] directly will send patient [...] Overview (03/26/2012): Followed by Dr. Nilsa Rivera @[phone], ALT# [phone]. Spoken to during the 01/24 admission to [...] until a bed is available at [facility]. 03/24/[address] Nilsa Cartagena-Abel @[phone], ALT# [phone], Psychiatrist taking care of Mae. She informed [...] bowel movements. Social/Behavioral for placement at [facility] was explored but no bed was available. [...] 12:15 AM 01/16/2023 3:33 PM Care Teams Welt Stitcher Relationship Specialty Start Date End Date None, Physician [address] [place] [address] PCP - General 03/25/23
--- OUTSIDE RECORDS SUMMARY | 2024-10-13 17:58 | XMS_ITS | Patient Health Record ---
Author Organization Replaced by [facility] Address [address] [place] [address] Care Team Providers Care Heading Pinner Name Role Phone Cesilia Ibanez Primary Care Provider Cesilia Ibanez Unavailable [phone] Allergies Allergen (clinical drug ingredient) Drug/Non Drug [...] Problem Status W/U Status Risk Notes Problem [id number] ADHD (attention deficit hyperactivity disorder) (F90.9) Active confirmed Problem 14764935 Bipolar 1 disorder, mixed (F31.60) Active confirmed Rule out Problem [id number] DMDD (disruptive mood dysregulation disorder) (F34.81) Active confirmed Plan Of Treatment No Information Insurance Providers Payer Name Payer Address Payer Phone Subscriber Number Group Number Insured Name Patient Relationship to Insured Coverage Start Date Coverage End Date [facility] Attn Claims Department [address] [place] [phone] [id number] Angy Francesandra Self - patient is the insured 9 [facility] Attn Claims Department [address] [place] [phone] [id number] Mae Frances Self - patient is the insured 1 Medical (General) History Surgical History Surgery Date(Month/Year) Hospitalization History Reason Date(Month/Year)
--- OUTSIDE RECORDS SUMMARY | 2024-10-13 17:58 | XMS_ITS | Clinical Summary ---
Author Organization [facility] Address [address] [place] [address] Phone Care Team Providers Care Box Lining Machine Operator Name Role Phone Unavailable Primary Care Provider [...] on file Legal Sex Female 2:53 AM DIGITAL CONTENT SPECIALIST Gender Identity Not on file Sexual [...]
--- OUTSIDE RECORDS SUMMARY | 2024-10-13 17:58 | XMS_ITS | Encounter Summary ---
Author Organization [facility] Address [address] [facility] Attn: Epic [place] [address] Care Team Providers Care Outpatient Coding Specialist Name Role Phone Unavailable Primary Care Provider Unavailabl e Encounter Details Date Type Department Care Team (Late st Contact Info) Description 2002 Inpatient Historical [place], Rodger Carter MD [address] [facility] [place] [address] Sakina Stoddard MD [address] [facility] [address] [place] [address] SINGL BORN IN HOSP-NO C/DELIVERY (Primary Dx) Social History Tobacco Use Types Packs/Day Years Used Date Smoking Tobacco: Never Assessed Comments Unknown Sex and Gender Information Value Date Recorded Sex Assigned at Not on file Legal Sex Female 2:53 AM QUALITY ASSURANCE INTERN Gender Identity Not on file Sexual Orientation Not on file documented as of this encounter Plan of Treatment Not on file documented as of this encounter Visit Diagnoses Diagnosis Single liveborn, born in hospital, delivered without mention of delivery- Primary documented in this encounter
[2024-10-13] MEDS: ACETAMINOPHEN 500 MG TABLET 1000 MG PO (18:27)
--- NOTE | 2024-10-13 18:27 | WPDANESEPP ---
Anes - Eval Pre Procedure Procedure: Labor epidural Date/Time: 10/13/24 18:27 Surgeon: Liberty Preop Diagnosis: Abdominal pain with contractions Pre Op Diagnosis: Induction of Labor Patient Data Age: 24 Gender: F Height: Weight: Last Vital Signs Pulse 75 10/13/24 18:15 BP 116/82 10/13/24 18:15 Allergies Allergy/AdvReac Type Severity Reaction Status Date / Time carbamazepine Allergy Intermediate Rash Verified 09/19/24 15:05 Home Medications ?Medication ?Instructions ?Recorded ?Confirmed ?Type vitamins no.119-iron 1 tablet PO DAILY 03/30/24 09/19/24 History fumarate 29 mg-folic acid 1 mg tablet (Se--19) sertraline 25 mg tablet 25 mg PO DAILY 09/19/24 09/19/24 History Laboratory Tests 10/13/24 16:47 WBC 8.0 K/mm3 (4.5-10.0) RBC 4.35 M/mm3 (4.2-5.4) Hgb 10.5 L g/dL (12.0-15.0) Hct 34.0 L % (37.0-47.0) MCV 78.2 L fl (80-100) MCH 24.1 L pg (26-34) MCHC 30.9 L g/dl (32-36) RDW 16.1 H % (11.5-14.5) Plt Count 184 k/mm3 (150-375) MPV 12.0 H fl (7.4-10.4) Immature Gran % (Auto) 0.8 H % (0-0.5) Neut % (Auto) 65.5 % (45.5-73.1) Lymph % (Auto) 24.9 % (18.3-44.2) [place] % (Auto) 8.0 % (2.6-8.5) Eos % (Auto) 0.3 % (0-4.4) Baso % (Auto) 0.5 % (0.2-1.2) Lymph # (Auto) 1.99 K/mm3 (0.9-3.2) [place] # (Auto) 0.6 K/mm3 (0.1-0.6) Eos # (Auto) 0.0 K/mm3 (0-0.3) Baso # (Auto) 0.0 K/mm3 (0.0-0.1) Abs Immat Gran (auto) 0.06 H K/mm3 (0.00-0.031) Absolute Neuts (auto) 5.2 K/mm3 (1.3-6.7) Absolute Nucleated RBC 0.000 K/mm3 (0.0-0.012) Nucleated RBC % 0.0 % (0.0-0.2) Syphilis IgG/IgM Ab Negative (Negative) HIV 1&2 Ab/P24 Ag 4thGn Negative (Negative) Blood Type A Positive Antibody Screen Negative : gestational age HCG: positive Patient hx anesthesia problems: none Family hx anesthesia problems: none Results Review: All pre-operative results and documents have been reviewed as part of the pre-operative evaluation. [facility] Past Medical History Medical History COVID-19 History of iron deficiency anemia Sinusitis chronic, frontal Sensory disorder Bipolar disorder Surgical History Surgical History History of tonsillectomy Family History Family History Other No significant family history Social History Social History Smoking status: Current every day smoker Tobacco type: e-cigarettes/vaping Alcohol intake: never Substance use: never Substance use type: marijuana Lack of Transportation: No Lack of Food: Sometimes True Current Housing: Decline to Answer Concerned About Future Housing: Decline to Answer Difficulty Paying Gas/Electric Bills: No Difficulty Paying for Meds: No Currently Unemployed: YES Education: High School Diploma/GED Difficulty w/ Childcare or Family Care: No Living arrangements: with family Occupation/Education: student Gender identity (if verbalized by the patient): Female Spiritual care concerns: No Exam Day of Procedure 10/13/24 18:27 Patient weight: normal Heart: regular rate and rhythm
--- NOTE | 2024-10-13 18:30 | LDADM ---
This patient, Mae Frances, was admitted to Labor/Delivery/Recovery 108 on 10/13/24 at 15:56. Plans for labor, pain management and were discussed with patient. Patient/family oriented to hospital policies and general routines including ID bracelet, bed and alarms, visiting hours, pain management, procedures, bathroom and other care routines, personal items, smoking policy, room service/diet and guest tray routines, infant security routines, and visiting hours. Patient/Family are encouraged to report perceived risks to care and to ask questions if they do not understand what they are told or what they should do. See OBIX for further documentation.
[2024-10-13] MEDS: LACTATED RINGERS 1,000 ML 125 ML IV CONT (18:42)
[2024-10-14] VITALS (157 sets, daily range): BP systolic 89–154; BP diastolic 52–102; PULSE 25–106; RESP 16–18; TEMP 36.2–37.1; O2SAT 74–100
[2024-10-14] MEDS: diphenhydrAMINE HCl INJ 50 MG/ML VIAL 25 MG IV PUSH (00:23)
[2024-10-14] MEDS: fentaNYL CITRATE INJ (*CRX) 100 MCG/2 ML VIAL 50 MCG IV PUSH (02:28)
[2024-10-14] MEDS: LACTATED RINGERS 1,000 ML 125 ML IV CONT ×2 (02:55→09:04)
[2024-10-14] MEDS: LACTATED RINGERS 500 ML 999 ML IV CONT (03:58)
[2024-10-14] MEDS: SODIUM CHLORIDE 0.9% IV 300 ML 600 ML I-UTERINE (04:11)
--- NOTE | 2024-10-14 07:27 | WPDOBADMIT ---
Obstetrics - Admit Note Admission Note: record reviewed. No pertinent additions to the history and/or any subsequent changes in the physical findings that are not consistent with the expected course of the were found. Additions to the history and/or subsequent changes in the physical findings follow. IOL, SVE /-2 anticipate vaginal delivery
[2024-10-14] MEDS: OXYTOCIN 30 UNITS/NS 500 ML 30 UNITS/500 ML BAG 999 UNITS IV CONT (11:46)
--- NOTE | 2024-10-14 11:54 | P.PCNOB_ITS ---
OB - Vaginal Delivery Note Procedure Delivery date: 10/14/24 Intrapartal Events: Decelerations and Ineffetive Pushing/Maternal Exhaustion Induction method: AROM and Per Misoprostol Protocol Delivery monitor: External FHT Route of delivery: Episiotomy description: None Laceration Description: None Specimen: No Quantitative Blood Loss (ml): 250 Anesthesia type: Epidural Disposition: Floor Complications: No immediate complications [place] Baby Date of : 10/14/24 Time of : 11:44 Gestational Age by Date: 40 gender: Male presentation: vertex position: Right Occiput Anterior Placenta delivery description: Spontaneous Cord Vessel Description: 3 Vessels, Nuchal Cord (x1) and Loose score one minute: 7 score five minutes: 9
[2024-10-14] MEDS: OXYTOCIN 30 UNITS/NS 500 ML 30 UNITS/500 ML BAG 125 UNITS IV CONT (12:03)
[2024-10-14] MEDS: ACETAMINOPHEN 325 MG TABLET 650 MG PO (12:41)
[2024-10-14] MEDS: WITCH HAZEL 40 PADS 1 PAD TOPICAL (14:12)
[2024-10-14] MEDS: BENZOCAINE 20% AER SPR (*SP) 56 GM CAN 1 SPRAY TOPICAL (14:12)
[2024-10-14] MEDS: DOCUSATE SODIUM 100 MG CAPSULE PO (15:47)
[2024-10-14] MEDS: IBUPROFEN 600 MG TABLET PO ×2 (15:52→23:30)
--- NOTE | 2024-10-14 16:21 | OBPPTRN ---
Patient transferred to post room #282 via ( wheelchair). Support person present. Oriented to unit, room, information board, rooming in, admission packet and security measures. Patient verbalizes understanding.
--- NOTE | 2024-10-14 22:18 | PC.NURSE ---
Called to room by pt due to spitting up. Mob is very anxious and worried about . I discussed feeding with pt and she stated burped after the last feeding but she thinks he needs gentlease formula. Education given that occasional spit up in infants can be normal and to continue burping every 5 mL and keep him upright for approx 20 min after feeding. MOB verbalized understanding. Discussed POC for infant and that infants weight is needed to be done in the nursery around midnight and Pt is worried about being taken out of room. Encouraged pt that infant will be in care of this RN for entirety of absense from room and that she is welcome to watch weight at nursery window. Pt verbalized understanding and seems reassured at this time. Pt also stated that she was unable to eat her supper due to being so busy caring for infant. Encouraged pt to call out for help when needed but that infant can be placed in bassinet swaddled while she takes a break to eat and that she needs to care for her self as well. [place] sandwich and snacks provided at this time. Encouraged pt to call out if any further assistance is needed.
[2024-10-15 04:30] VITALS: BP 123/93; PULSE 62; RESP 18; TEMP 36.4; O2SAT 99
[2024-10-15] MEDS: ACETAMINOPHEN 325 MG TABLET 650 MG PO (05:10)
[2024-10-15 05:13] LABS: Hematocrit 30.5 % (37.0-47.0); Hemoglobin 9.4 g/dL (12.0-15.0)
[2024-10-15 07:30] VITALS: BP 124/86; PULSE 80; RESP 16; TEMP 36.8; O2SAT 100
[2024-10-15] MEDS: SERTRALINE HCL 25 MG TABLET PO (08:09)
[2024-10-15] MEDS: POLYSACCHARIDE IRON COMPLEX 150 MG CAPSULE PO ×2 (08:09→17:14)
[2024-10-15] MEDS: DOCUSATE SODIUM 100 MG CAPSULE PO ×2 (08:09→17:15)
--- NOTE | 2024-10-15 08:10 | P.PNOB_ITS ---
OB - PN: Subj Subjective Date/time seen: 10/15/24 08:10 Patient comments: no complaints, pain well controlled, incisional pain, tolerating diet and flatus present OB - PN: Obj Data Labs 10/15/24 05:04 Labs: Laboratory Results - last 24 hr 10/15/24 05:04 Hgb 9.4 L Hct 30.5 L OB - PN A/P Plan day: 1 Plan: routine care Comments: No problems, routine care Time Spent With Patient Time: Total time spent is greater than 50% in coordination of care (as documented) at patient's floor/unit and/or counseling patient: Exam 2 Const: General: comfortable, no acute distress and alert Resp: Effort & Inspection: normal respiratory effort Auscultation: no crackles, no rales and no rhonchi Cardio: Rate: regular rate Heart sounds: no click, no murmurs and no rubs GI: Inspection: non-distended GI Palp: No Tenderness to palpation present (GI) Auscultation: normal bowel sounds Other: Incision - CDI Extrem: General: normal to inspection, no pedal edema and no calf tenderness
--- NOTE | 2024-10-15 14:26 | WPDANLDPN2 ---
Anes-Prog Note L&D Date/Time: 10/15/24 14:26 Comfortable throughout: labor and delivery Neuraxial method: epidural Epidural/Spinal procedure site: clean & non-tender Neuro status: Neuro function grossly intact. Cardiovascular status: normal Respiratory status: normal Airway patency: baseline Mental status: baseline Post-Op hydration status: normal Vital Signs: Last Vital Signs Temp 36.8 C 10/15/24 07:30 Pulse 80 10/15/24 07:30 Resp 16 10/15/24 07:30 BP 124/86 10/15/24 07:30 Pulse Ox 100 10/15/24 07:30 O2 Del Method Room Air 10/14/24 16:00 Pain score (VAS): 0/10 I/O: Intake & Output 10/14/24 10/15/24 10/15/24 23:59 07:59 15:59 Intake Total 0 Balance 0 Post-procedural complaints: none Patient feedback: Patient satisfied with anesthetic care.
[2024-10-15] MEDS: IBUPROFEN 600 MG TABLET PO (17:15)
[2024-10-15 20:00] VITALS: BP 120/75; PULSE 60; RESP 16; TEMP 36.8; O2SAT 98
[2024-10-16] MEDS: IBUPROFEN 600 MG TABLET PO ×2 (00:06→08:46)
[2024-10-16 07:40] VITALS: BP 117/77; PULSE 88; RESP 16; TEMP 36.4; O2SAT 100
--- NOTE | 2024-10-16 07:42 | P.PNOB_ITS ---
OB - PN: Subj Subjective Date/time seen: 10/16/24 07:42 Interval history: pp day 2 doing well desires d/c home OB - PN: Obj Data Labs 10/15/24 05:04 OB - PN A/P Plan day: 2 Plan: routine care and discharge home Time Spent With Patient Time: Total time spent is greater than 50% in coordination of care (as documented) at patient's floor/unit and/or counseling patient: Review of Systems 2 Review of Systems: All systems reviewed & are unremarkable except as noted in HPI and below Exam 2 Const: General: cooperative and healthy appearing Resp: Effort & Inspection: normal respiratory effort Cardio: Rate: regular rate
--- NOTE | 2024-10-16 07:44 | P.DS_ITS ---
DS: Admitting Diagnosis Discharge Date 10/16/24 Admitting Diagnosis IOL DS: Discharge Diagnosis Discharge Diagnosis (1) Vaginal delivery: Code(s): O80 - Encounter for full-term uncomplicated delivery Status: Acute OB - DS: Summary OB Procedures : None OB Procedures Intrapartum: Spontaneous Vag Delivery OB Procedures: : None Peripartum Data Laceration Description: None Episiotomy description: None Time Spent with Patient Time attestation: Total time spent providing and/or coordinating discharge services: Discharge Plan Discharge Attending physician on discharge: Jones Koenig Discharging Clinician: Sakina Cantrell Patient Disposition: Home, Self-Care Activity: pelvic rest Diet: regular Patient Instructions: Antibiotic Form Patient Language: German Stand Alone Forms: General Discharge Information Follow-up/Referrals: Sakina Cantrell CNM [Certified Nurse Concrete Floor Installer] - 4 Weeks Discharge Medications: Continued Se- 19 29 mg iron- 1 mg tablet 1 tablet PO DAILY sertraline 25 mg tablet 25 mg PO DAILY Date of admission: 10/13/24 15:56 Primary Care Provider: UNKNOWN,DOCTOR Admitting Provider: Jones Koenig Attending physician on admission: Jones Koenig Condition: Stable
[2024-10-16] MEDS: DOCUSATE SODIUM 100 MG CAPSULE PO (08:24)
[2024-10-16] MEDS: POLYSACCHARIDE IRON COMPLEX 150 MG CAPSULE PO (08:24)
[2024-10-16] MEDS: SERTRALINE HCL 25 MG TABLET PO (08:25)
== END 2024-10-16 09:35 | disposition home or self-care (01) | DRG 807 ==
LOC: ANHLDR 16:03 → ANHOB2 10-14 15:05
PROVIDERS: Admitting Provider Obstetrics & Gynecology; Referring Provider Advanced Practice Midwife; Visit Provider Obstetrics & Gynecology
DX: O76 Abnormality in fetal heart rate and rhythm complicating labor and delivery (principal); Z37.0 Single live birth; O69.81X0 Labor and delivery complicated by cord around neck, without compression, not applicable or unspecified; O77.0 Labor and delivery complicated by meconium in amniotic fluid; Z3A.40 40 weeks gestation of pregnancy
CPT/HCPCS: 36415; 85014; 85018; 85025; 86593; 86703; 86850; 86900; 86901; A9270; G0432; J1200; J2590; J2795; J3010; J7030; J7120

== ENCOUNTER 2024-11-12 08:04 | Emergency (ER) | payer BC, MEDICAID, SELFPAY ==
--- NOTE | 2024-11-12 08:07 | ED_ITS ---
HPI - URI/Sore Throat General Chief Complaint: Upper Respiratory Infection Stated Complaint: sore throat,congestion Time Seen by Provider: 11/12/24 08:06 Source: patient Mode of arrival: ambulatory Limitations: no limitations History of Present Illness HPI Narrative: Mae is a 24-year-old female patient presenting to the clinic today with complaints of sore throat and and dry cough that just started when she woke up this morning. She reports no known fevers, chills, body aches. Denies any chest pain shortness of breath. Recent of vaginal delivery within the last month. Is not . Related Data Home Medications ?Medication ?Instructions ?Recorded ?Confirmed ?Last Taken ?Type vitamins no.119-iron 1 tablet PO DAILY 03/30/24 11/12/24 09/19/24 History fumarate 29 mg-folic acid 1 mg tablet (Se-Kwasi 19) sertraline 25 mg tablet 25 mg PO DAILY 09/19/24 11/12/24 09/19/24 History Allergies Allergy/AdvReac Type Severity Reaction Status Date / Time carbamazepine Allergy Intermediate Rash Verified 11/12/24 08:07 Review of Systems Review of Systems: Pertinent positives per HPI. Patient denies any fever, chills, rash, headache, visual changes, dizziness, shortness of breath, chest pain, palpitations, nausea, vomiting, diarrhea, constipation, abdominal pain, or any urinary issues. [facility] Past Medical History Medical History COVID-19 History of iron deficiency anemia Sinusitis chronic, frontal Sensory disorder Bipolar disorder Surgical History Surgical History History of tonsillectomy Family History Family History Other No significant family history Social History Social History Smoking status: Current every day smoker Tobacco type: e-cigarettes/vaping Additional smoking assessment comments: marijuana for nausea Alcohol intake: never Substance use: never Substance use type: marijuana Do You Feel Safe in your Home?: No Lack of Transportation: No Lack of Food: Never True Current Housing: I Have Housing Concerned About Future Housing: No Difficulty Paying Gas/Electric Bills: No Difficulty Paying for Meds: No Currently Unemployed: No Education: High School Diploma/GED Difficulty w/ Childcare or Family Care: No Living arrangements: with family Occupation/Education: student Gender identity (if verbalized by the patient): Female Spiritual care concerns: No Comments At the time of my signature, I reviewed and agree with the nursing past medical, surgical, social, and family history. There is no relevant family history pertinent to the patient complaint. Exam Narrative: General: Well-developed, well nourished, in no apparent distress Head: Normocephalic, atraumatic Eyes: Pupils equally round and reactive to light bilaterally, EOM intact, sclera and conjunctive clear, no discharge, lids normal Ears: TMs intact and clear, ear canals clear, no drainage, grossly hearing normal. Nose: Nares patent, no discharge, no inflammation, no sinus tenderness. Mouth: Oral pharynx without lesions or masses, good dentition, MMM. Neck: Supple, trachea midline, no enlargement of anterior or posterior cervical nodes, no thyroid masses or goiter palpable. Cardio: Regular rate and rhythm, s1 and s2 normal, no murmur appreciated. Resp: Clear to auscultation bilaterally, no rhonchi, rales, wheezing or rubs Course Course Emergency Course: Portions of this record may have been created with voice recognition software. Level of Care: Express Care Visit Vital Signs Vital signs: Vital signs reviewed MDM - URI/Sore Throat MDM Narrative Medical decision making narrative: At the time of visit patient is resting comfortably on the exam table. Patient appears to be nontoxic. Labs: Strep test was obtained and negative in the clinic today. We will send for culture. Plan: I suspect patient has acute pharyngitis. Supportive measures were discussed with the patient and they voiced understanding discharge instructions and agrees to treatment plan. Return precautions reviewed Differential Diagnosis Differential diagnosis: Likely upper respiratory infection, otitis media, sinusitis, viral infection, bronchitis, influenza, pharyngitis and other (COVID) Discharge Plan Discharge Clinical Impression: Acute sore throat Patient Disposition: Home Condition: Stable Instructions: Antibiotic Form, Pharyngitis (ED) Additional Instructions: Strep test was negative in the clinic today. We will send strep for culture and if this comes back positive we will contact him place you on antibiotics at that time. Increase fluids and stay well hydrated Tylenol/motrin for pain/fever Flonase and OTC antihistamines as directed Vicks vapor rub to open sinuses Sinus rinses for congestion Cepacol spray, cough drops, throat lozenges, warm tea with honey/lemon, gargle salt water to soothe throat BRAT diet for diarrhea Clear liquids x 24 hours then advance as tolerated for nausea/vomiting Go to the ED if you develop a worsening in your condition- high fever not controlled by Tylenol or Motrin, dehydration, weakness, lethargy, shortness of breath, or chest pain. Follow up with your PCP in 3-5 days if symptoms persist. Patient Language: Chinese Prescriptions: No Action Se- 19 29 mg iron- 1 mg tablet 1 tablet PO DAILY sertraline 25 mg tablet 25 mg PO DAILY Follow-up/Referrals: PHYSICIAN,WEAVER NEEDLE LOOM [Primary Care Provider] - Time of Disposition: 08:20 Quality NIHSS Nursing Documentation ED NIHSS nursing documentation: reviewed/agree
[2024-11-12 08:18] VITALS: BP 121/68; PULSE 83; RESP 14; TEMP 37.2; O2SAT 100
[2024-11-12 08:32] LABS: EDSTREPNEGPOS1 Negative (Negative)
== END 2024-11-12 08:35 | disposition home or self-care (01) ==
PROVIDERS: Emergency Provider Nurse Practitioner Family
DX: O99.53 Diseases of the respiratory system complicating the puerperium (principal); J02.9 Acute pharyngitis, unspecified; O99.335 Smoking (tobacco) complicating the puerperium; F17.290 Nicotine dependence, other tobacco product, uncomplicated; O99.325 Drug use complicating the puerperium; F12.90 Cannabis use, unspecified, uncomplicated
CPT/HCPCS: 87081; 87880; 99213; G0463

== ENCOUNTER 2025-02-09 09:08 | Emergency (ER) | payer BC, MEDICAID, SELFPAY ==
--- NOTE | ~2025-02-09 | US_ITS ---
EXAM/PROCEDURE: US OB <= 14 weeks fetus - 02/09/2025 10:45 CDT HISTORY: 24 years old Female with vomiting, back pain, first trimester COMPARISON: None available. TECHNIQUE: Multiple transvaginal images were obtained. FINdINGS: There is a single, live, intrauterine gestation with a heart rate of 178 bpm. The crown-rump length is 28 mm, which is equivalent to a 10 week, 2 day gestation. This gives an estimated date of deliver y of 09/06/2025 The gestational sac is unremarkable. There is no myometrial abnormality. The ovaries appear unremark able. No significant free fluid is seen. IMPRESSION: Single live embryo with estimated date of delivery of 09/06/2025. Reviewed, dictated and finalized at location A.
--- OUTSIDE RECORDS SUMMARY | 2025-02-09 09:13 | XMS_ITS | Clinical Summary ---
Author Organization [facility] Address [address] [place] [address] Care Team Providers Care Catalogue And Special Products Manager Name Role Phone None, Physician Primary Care Provider Unavailabl e Source Comments [facility],non-owned Affiliates and Associated Physician Practices is amultiple site organization consisting of ambulatory clinics and hospital sitesin [place], [place], [place] and [place]. This disclosure is being madepursuant to the Care Everywhere program and may not contain all information available regarding this patient. Last updated 18.[facility] iloho Allergies Active Allergy Reactions Criticality Noted Date Comments Bisacodyl Rash Medium 07/10/2010 Carbamazepine Rash 01/30/2010 Medications * Be aware that medications may not be up to date on this document. Alwaysverify current medications with the patient. buPROPion (Wellbutrin) 75 MG tablet Take 1 (one) tablet by mouth 2 times daily 2 Active amoxicillin-cla vulanate (Augmentin) 875-125 MG tablet Take 1 (one) tablet by mouth 2 times daily with morning and evening meal 3 Active polyethylene glycol 3350 (Miralax) 17 GM/SCOOP powder Take 17 (seventeen) g by mouth 3 times daily 255 g 3 3 Active senna (Senokot) 8.6 MG tablet Take 2 (two) tablets by mouth once daily as needed For constipation (no stool >48h) despite regular use of miralax or other stool softener. 28 tablet 3 Active Active Problems Problem Noted Date Diagnosed [...] as an outpatient with Dr. Lomas at [facility] Constipation, unspecified constipation type 01/03 [...] 09/17/2018 Assessment & Plan (09/17/2018 8:55 PM LEACH RUNNER): 17 y.o. 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 If unable to transfer to [facility] directly will send patient home [...] Overview (03/26/2012): Followed by Dr. Nilsa Rivera @[phone], ALT# [phone]. Spoken to during the 01/24 admission to [...] therapist until a bed is available at [facility]. 03/24/[address] Nilsa Rivera @[phone], ALT# [phone], Psychiatrist taking care of Mae. She informed [...] bloody bowel movements. Social/Behavioral for placement at [facility] was explored but no bed was [...] more drinks on one occasion? Never 03/25/2023 Comments No Sex and Gender Information Value Date Recorded Sex Assigned at Not on file Legal Sex Female 5:44 AM LEACH RUNNER Gender Identity Not on file Sexual Orientation [...] P M CDT Height 161 cm (5' 3.39) 03/25/2023 3:27 PM CDT Body Mass Index 17.44 03/25/2023 3:27 PM CDT Plan of Treatment Health Maintenance Due Date Last Done Comments HPV VACCINE (1 - 3-dose series) 2017 MENINGOCOCCAL (Group B) VACCINE SHARED DECISION-MAKING (1 of 2 - Standard) 2018 HEPATITIS C SCREENING 09/27/2020 DTAP/TDAP/TD VACCINES (1 - Tdap) 2021 HEPATITIS B VACCINE (1 of 3 - 19+ 3-dose series) 2021 PAP SMEAR 2023 CHLAMYDIA/GONORRHEA SCREENING 12/26/2023 12/25/2022, 11/21/2022, 03/20/2022, Additional history exists COVID-19 VACCINE (3 - season) 2024 11/24/2020, 11/03/2020 INFLUENZA VACCINE (Season Ended) 2025 05/17/2020, 08/15/2019 ZOSTER VACCINE (1 of 2) 2052 HIV SCREENING Completed 11/21/2022, 03/20/2022 HIB VACCINE Aged Out No longer eligi ble based on patient's age to complete this topic MENINGOCOCCAL GROUPS A/C/Y/W VACCINE Aged Out No longer eligible based on patient's age to complete this topic PNEUMOCOCCAL VACCINE Aged Out No long er eligible based on patient's age to complete this topic [place] [address] [place] [address] [place] [id number] [facility] Member Subscriber Plan / Payer (Ef fective 2019-Present) Name:Mae Frances Relation to Subscriber:Self Name:Mae Frances Payer ID:[id number] (NAIC) Group ID:Not on file Type:Medicaid Managed Care Address: ATTN CLAIMS DEPARTMENT [place] [id number] Advance Directives * Full Code (Latest Code Status on File) Date Activated Date Inactivated Comments 01/15/2023 12:15 AM 01/16/2023 3:33 PM Care Teams Catalogue And Special Products Manager Relationship Specialty Start Date End Date None, Physician [address] [place] [address] PCP - General 03/25/23
--- OUTSIDE RECORDS SUMMARY | 2025-02-09 09:13 | XMS_ITS | Referral Summary ---
Author Organization [facility] Address [facility] [place] [address] Care Team Providers Care Stonecutter Assistant Name Role Phone No, Physician Primary Care [...] you feel afraid or unsafe? 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
--- OUTSIDE RECORDS SUMMARY | 2025-02-09 09:13 | XMS_ITS | Clinical Summary ---
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
--- OUTSIDE RECORDS SUMMARY | 2025-02-09 09:13 | XMS_ITS | Encounter Summary ---
Author Organization [facility] Address [address] [place] [address] Care Team Providers Care Machine Rug Cleaner Name Role Phone Unavailable Primary Care Provider Unavailabl e Encounter Details Date Type Department Care Team (Late st Contact Info) Description 2002 Outpatient Historical [facility] Pediatrics - [facility] [address] [address] Radhika Emmanuel MD NO ADDRESS ON FILE Social History Tobacco Use Types Packs/Day Years Used Date Smoking Tobacco: Never Assessed Comments Unknown Sex and Gender Information Value Date Recorded Sex Assigned at Not on file 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
--- OUTSIDE RECORDS SUMMARY | 2025-02-09 09:13 | XMS_ITS | Encounter Summary ---
Author Organization [facility] Address [address] [place] [address] Care Team Providers Care Flight Software Test Engineer Name Role Phone Unavailable Primary Care Provider Unavailabl e Encounter Details Date Type Department Care Team (Late st Contact Info) Description 2002 Outpatient Historical [facility] Pediatrics - [facility] [address] [address] Rodger Verma MD [id number] [place] [address] Social History Tobacco Use Types Packs/Day Years Used Date Smoking Tobacco: Never Assessed Comments Unknown Sex and Gender Information Value Date Recorded Sex Assigned at Not on file 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
--- OUTSIDE RECORDS SUMMARY | 2025-02-09 09:13 | XMS_ITS | Clinical Summary ---
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 Gender Identity Not on file Sexual Orientation Not on file Obstetrics History Para Term AB IAB SAB Ectopic Multiple Livin g Live Births 1 Date Outcome GA Total Labor Labor/2nd/3rd Weight Sex Type Anes PTL Nora A1 A5 Name Clin Last Filed Vital Signs Vital Sign Reading [...] Standard) 2018 Regular Well Visit/Exam 18-64 2020 DTaP/Tdap/Td Vaccine (7 - Td or Tdap) 06/10/2024 06/10/2014, 11/01/2006, 03/28/2004, Additional history exists Influenza Vaccine (Season Ended) 2025 05/17/20 20, 08/15/2019 Hepatitis B Screening Completed 07/06/2003 , 04/02/2003, 03/31/2003, Additional history exists Pneumococcal vaccine <65 Completed 005, 2004, 04/02/2003, Additional history exists Varicella Vaccines Completed 11/01/2006, 10/28/2003 HPV Vaccines Completed 05/28/2018, 08/22/2016 Insurance [facility] Care Teams Chief Pharmacist Relationship Specialty Start Date End Date No, Physician PCP - General 04/16/24
--- OUTSIDE RECORDS SUMMARY | 2025-02-09 09:13 | XMS_ITS | Encounter Summary ---
Author Organization [facility] Address 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
--- OUTSIDE RECORDS SUMMARY | 2025-02-09 09:13 | XMS_ITS | Encounter Summary ---
Author Organization [facility] Address [address] Attn: Epic [place] [address] Care Team Providers Care Rn Mental Health Name Role Phone Unavailable Primary Care Provider Unavailabl e Encounter Details Date Type Department Care Team (Late st Contact Info) Description 2002 Inpatient Historical [place], Rodger Carter MD [address] 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
--- OUTSIDE RECORDS SUMMARY | 2025-02-09 09:13 | XMS_ITS | Encounter Summary ---
Author Organization [facility] Address [address] [place] [address] Care Team Providers Care Level Vial Sealer Name Role Phone Unavailable Primary Care Provider Unavailabl e Encounter Details Date Type Department Care Team (Latest Contact Info) Description 2002 Outpatient Historical [facility] Radhika Bojorquez MD NO ADDRESS ON FILE CONGENITAL HYPOTHYROIDSM (Primary Dx) Social History Tobacco Use Types Packs/Day Years Used Date Smoking Tobacco: Never Assessed Comments Unknown Sex and Gender Information Value Date Recorded Sex Assigned at Not on file Legal Sex Female 2:53 AM HEALTH SERVICES RN Gender Identity Not on file Sexual Orientation Not on file documented as of this encounter Plan of Treatment Not on file documented as of this encounter Visit Diagnoses Diagnosis Congenital hypothyroidism- Primary documented in this encounter
--- OUTSIDE RECORDS SUMMARY | 2025-02-09 09:14 | XMS_ITS | Data Portability ---
Author Organization [facility] Address [address] [place] [address] Assessment Encounter Date Assessment Date Assessment LastModified by Organization Details LastModified Time 11/11/2024 11/11/2024 plan barrier methods for control, continue sertraline daily list of pcp given f/u jamie [email or web address] Not available 11/11/2024 13:31:55 Plan of Treatment Reminders Order Date Submit Date Provider Last Modified By Organization Details Last Modified Time Details Appointments U/S OB FIRST LOOK 2024 11:30A M ULTRASOUND Not available Not available Not available OB NEW 2024 01:00P M Sakina Cantrell CNM Not available Not available Not available Lab vitamin B12 + folate, serum or blood 2024 025 [facility] (Lab), [address], [place], [address], 11/12/2024 07:22:56 CBC w/ auto diff 2024 025 [facility] (Lab), [address], [place], [address], 11/12/2024 07:22:55 CMP, serum or plasma 2024 025 [facility] (Lab), [address], [place], [address], 11/12/2024 07:22:55 TSH, serum or plasma 2024 025 [facility] (Lab), [address], [place], [address], 11/12/2024 07:22:56 25-hydr oxyvita min D2 + 25-hydr oxyvita min D3, QN, serum or plasma 2024 025 [facility] (Lab), [address], [place], [address], 11/12/2024 07:22:57 Referral None recorde d. Procedures None recorde d. Surgeries None recorde d. Imaging US, obstetr ic, transva ginal 2024 025 [email or web address] [place], [facility] [address], [place], [address], 01/06/2025 16:29:59 Medication Orders sertral ine 25 mg tablet 2024 025 [facility][id number], [address] , [place], [place], [id number], 01/29/2025 11:55:23 Anusol- HC 2.5 % topical cream with perinea l applica tor 2024 025 [facility] #[id number], [address] [facility], [place], [place], [id number], 01/29/2025 11:45:04 Patient TargetsNo targets recorded. Patient InstructionsNo instructions recorded. Reason for Referral None Reported. Results Created Date Observation Date Name Description Value Unit Range Abnormal Flag Note LastModifiedBy Organization Detail LastModifiedTime 11/12/1911/11/2024 CBC W/DIF F WBC 5.6 10'3/ uL 3.5-10 .5 Not Available [facility] (Lab) [address], [place], [address], 11/12/2024 07:22:55 11/12/19 25 11/11/2024 CBC W/DIF F RBC 5.22 10'6/ uL (based on docume nted legal sex) 3.80-5 .20 high Not Available [facility] (Lab) [address], [place], [address], 11/12/2024 07:22:55 11/12/1911/11/2024 CBC W/DIF F HGB 12.8 g/dL (based on docume nted legal sex) 11.6-1 5.4 Not Available [facility] (Lab) [address], [place], [address], 11/12/2024 07:22:55 11/12/19 25 11/11/2024 CBC W/DIF F HCT 43.0 % (based on docume nted legal sex) 34.0-4 5.0 Not Available [facility] (Lab) [address], [place], [address], 11/12/2024 07:22:55 11/12/19 25 11/11/2024 CBC W/DIF F MCV 82.4 fL 80.0-9 9.0 Not Available [facility] (Lab) [address], [place], [address], 11/12/2024 07:22:55 11/12/1911/11/2024 CBC W/DIF F MCH 24.5 pg 27.0-3 4.0 low Not Available [facility] (Lab) [address] [place], [address], 11/12/2024 07:22:55 11/12/1911/11/2024 CBC W/DIF F MCHC 29.8 g/dL 32.0-3 5.5 low Not Available [facility] (Lab) [address] [place], [address], 11/12/2024 07:22:55 11/12/19 25 11/11/2024 CBC W/DIF F RDW 18.5 % 11.0-1 5.0 high Not Available [facility] (Lab) [address], [place], [address], 11/12/2024 07:22:55 11/12/19 25 11/11/2024 CBC W/DIF F plt 317 10'3/ uL 150-40 0 Not Available [facility] (Lab) [address], [place], [address], 11/12/2024 07:22:55 11/12/19 25 11/11/2024 CBC W/DIF F MPV 10.8 fL 8.8-12 .1 Not Available [facility] (Lab) [address], [place], [address], 11/12/2024 07:22:55 11/12/19 25 11/11/2024 CBC W/DIF F neutrophils 43.7 % 34.0-7 3.0 Not Available [facility] (Lab) [address], [place], [address], 11/12/2024 07:22:55 11/12/19 25 11/11/2024 CBC W/DIF F lymphocytes 42.4 % 15.0-5 0.0 Not Available [facility] (Lab) [address], [place], [address], 11/12/2024 07:22:55 11/12/19 25 11/11/2024 CBC W/DIF F monocytes 8.1 % 1.0-15 .0 Not Available [facility] (Lab) [address], [place], [address], 11/12/2024 07:22:55 11/12/19 25 11/11/2024 CBC W/DIF F eosinophils 4.5 % 0.0-8. 0 Not Available [facility] (Lab) [address], [place], [address], 11/12/2024 07:22:55 11/12/19 25 11/11/2024 CBC W/DIF F basophils 0.9 % 0.0-2. 0 Not Available [facility] (Lab) [address], [place], [address], 11/12/2024 07:22:55 11/12/19 25 11/11/2024 CBC W/DIF F immature granulocytes 0.4 % no define d refere nce range Immat ure Granu locyt es (IG) repre sents autom ated enume ratio n of Metam yeloc ytes, Myelo cytes and Promy elocy raven when IG is < 5%. Blast s are not inclu ded in IG and repor onesimo separ ately if prese nt. Not Available [facility] (Lab) [address], [place], [address], 11/12/2024 07:22:55 11/12/19 25 11/11/2024 CBC W/DIF F absolute neutrophils 2.4 10'3/ uL 1.5-8. 0 Not Available [facility] (Lab) [address], [place], [address], 11/12/2024 07:22:55 11/12/19 25 11/11/2024 CBC W/DIF F absolute lymphocytes 2.4 10'3/ uL 1.0-4. 0 Not Available [facility] (Lab) [address], [place], [address], 11/12/2024 07:22:55 11/12/19 25 11/11/2024 CBC W/DIF F absolute monocytes 0.5 10'3/ uL 0.2-1. 0 Not Available [facility] (Lab) [address], [place], [address], 11/12/2024 07:22:55 11/12/19 25 11/11/2024 CBC W/DIF F absolute eosinophils 0.3 10'3/ uL 0.0-0. 6 Not Available [facility] (Lab) [address], [place], [address], 11/12/2024 07:22:55 11/12/19 25 11/11/2024 CBC W/DIF F absolute basophils 0.1 10'3/ uL 0.0-0. 3 Not Available [facility] (Lab) [address], [place], [address], 11/12/2024 07:22:55 11/12/19 25 11/11/2024 CBC W/DIF F absolute immature granulocytes 0.0 10'3/ uL 0.00-0 .10 Refer ence range s for nonbi nary/ inter sex or unspe cifie d gende r patie nts have not been estab lishe d. Pleas e refer to the [facility] for range s estab lishe d for cisge nder patie nts and evalu ate in the clini xander lee xt of the indiv idual patie nt: https ://leida jacobo book. nm.or g/gen derx Not Available [facility] (Lab) [address], [place], [address], 11/12/2024 07:22:55 11/12/19 25 11/11/2024 CMP(C OMPRE HENSI VE METAB OLIC PANEL ) sodium 141 mmol/ L 133-14 6 Not Available [facility] (Lab) [address], [place], [address], 11/12/2024 07:22:55 11/12/19 25 11/11/2024 CMP(C OMPRE HENSI VE METAB OLIC PANEL ) potassium 4.0 mmol/ L 3.5-5. 1 Not Available [facility] (Lab) [address], [place], [address], 11/12/2024 07:22:55 11/12/19 25 11/11/2024 CMP(C OMPRE HENSI VE METAB OLIC PANEL ) chloride 102 mmol/ L 98-107 Not Available [facility] (Lab) [address], [place], [address], 11/12/2024 07:22:55 11/12/19 25 11/11/2024 CMP(C OMPRE HENSI VE METAB OLIC PANEL ) carbon dioxide 31 mmol/ L 21-31 Not Available [facility] (Lab) [address], [place], [address], 11/12/2024 07:22:55 11/12/19 25 11/11/2024 CMP(C OMPRE HENSI VE METAB OLIC PANEL ) anion gap 8 mmol/ L 4-13 Not Available [facility] (Lab) [address], [place], [address], 11/12/2024 07:22:55 11/12/19 25 11/11/2024 CMP(C OMPRE HENSI VE METAB OLIC PANEL ) blood urea nitrogen 10 mg/dL 7-[address] [facility] (Lab) [address], [place], [address], 11/12/2024 07:22:55 11/12/19 25 11/11/2024 CMP(C OMPRE HENSI VE METAB OLIC PANEL ) creatinine 0.78 mg/dL 0.60-1 .30 Not Available [facility] (Lab) [address], [place], [address], 11/12/2024 07:22:55 11/12/19 25 11/11/2024 CMP(C OMPRE HENSI VE METAB OLIC PANEL ) egfrcr (CKD-epi 2020) >90 mL/mi n/1.7 3_m2 >=60 Not Available [facility] (Lab) [address], [place], [address], 11/12/2024 07:22:55 11/12/19 25 11/11/2024 CMP(C OMPRE HENSI VE METAB OLIC PANEL ) calcium 9.5 mg/dL 8.3-10 .5 Not Available [facility] (Lab) [address], [place], [address], 11/12/2024 07:22:55 11/12/19 25 11/11/2024 CMP(C OMPRE HENSI VE METAB OLIC PANEL ) glucose 87 mg/dL 70-100 Not Available [facility] (Lab) [address], [place], [address], 11/12/2024 07:22:55 11/12/19 25 11/11/2024 CMP(C OMPRE HENSI VE METAB OLIC PANEL ) protein, total 7.0 g/dL 6.4-8. 3 Not Available [facility] (Lab) [address], [place], [address], 11/12/2024 07:22:55 11/12/19 25 11/11/2024 CMP(C OMPRE HENSI VE METAB OLIC PANEL ) albumin 4.2 g/dL 3.5-5. 0 Not Available [facility] (Lab) [address], [place], [address], 11/12/2024 07:22:55 11/12/19 25 11/11/2024 CMP(C OMPRE HENSI VE METAB OLIC PANEL ) ALT 23 units /L 9-43 Not Available [facility] (Lab) [address], [place], [address], 11/12/2024 07:22:55 11/12/19 25 11/11/2024 CMP(C OMPRE HENSI VE METAB OLIC PANEL ) alkaline phosphatase 61 units /L 34-104 Not Available [facility] (Lab) [address], [place], [address], 11/12/2024 07:22:55 11/12/19 25 11/11/2024 CMP(C OMPRE HENSI VE METAB OLIC PANEL ) AST 25 units /L 13-39 Not Available [facility] (Lab) [address] [place], [address], 11/12/2024 07:22:55 11/12/19 25 11/11/2024 CMP(C OMPRE HENSI VE METAB OLIC PANEL ) bilirubin, total 0.4 mg/dL 0.2-1. 2 Not Available [facility] (Lab) [address] [place], [address], 11/12/2024 07:22:55 11/12/19 25 11/11/2024 TSH, REFLE X FREE T4 TSH 1.25 uIU/m L 0.30-5 .33 Not Available [facility] (Lab) [address], [place], [address], 11/12/2024 07:22:56 11/12/1911/11/2024 VITAM IN B12 / FOLAT E PANEL vitamin B12 538 pg/mL 180-91 4 Nuria l Range : 180-9 14 pg/mL . Indet ermin ate Range : 145-1 80 pg/mL . Defic ient Range : <=145 pg/mL . Not Available [facility] (Lab) [address], [place], [address], 11/12/2024 07:22:56 11/12/1911/11/2024 VITAM IN B12 / FOLAT E PANEL folate, serum 18.5 NG/mL 6.0-20 .0 Not Available [facility] (Lab) [address], [place], [address], 11/12/2024 07:22:56 11/12/1911/11/2024 VITAM IN D, 25-OH (TOTA L D2/D3 ) vitamin D, 25-hydroxy, total 40.0 NG/mL 30.0-1 00.0 Sugge stive of Defic iency : <20 ng/mL Sugge stive of Insuf ficie ncy: 20-29 ng/mL Sugge stive of Suffi cienc y: 30-10 0 ng/mL Sugge stive of Toxic ity: >150 ng/mL Not Available [facility] (Lab) [address], [place], [address], 11/12/2024 07:22:57 01/30/2001/29/2025 CT/GC AND TRICH OMONA S VAGIN MILA (RRNA ), URINE chlamydia trachomatis, PCR Negati ve negati ve Not Available [facility] (Lab) [address], [place], [address], 01/30/2025 13:07:13 01/30/20 25 01/29/2025 CT/GC AND TRICH OMONA S VAGIN MILA (RRNA ), URINE neisseria gonorrhoeae, PCR Negati ve negati ve Not Available [facility] (Lab) [address], [place], [address], 01/30/2025 13:07:13 01/30/20 25 01/29/2025 CT/GC AND TRICH OMONA S VAGIN MILA (RRNA ), URINE trichomonas vaginalis ribosomal RNA (rrna) Negati ve negati ve Not Available [facility] (Lab) [address], [place], [address], 01/30/2025 13:07:13 10/02/19 25 09/30/2024 non-s tress test No observ ation record ed. [facility] [address], [place], [address], 2024 17:28:33 10/02/19 25 2024 non-s tress test No observ ation record ed. [facility] [address], [place], [address], 2024 18:27:22 10/27/19 25 10/26/2024 non-s tress test No observ ation record ed. [place] [id number], [place], [address], 10/28/2024 09:10:56 01/07/20 25 01/06/2025 US, obste tric, 1st trime ster No observ ation record ed. [email or web address] [address], [place], [address], 01/08/2025 06:22:19 01/07/20 25 01/06/2025 US, obste tric, trans vagin al No observ [facility]ion [facility] [address], [place], [address], 01/06/2025 17:39:42 01/30/20 25 01/29/2025 US, obste tric, follo w-up No observ ation record ed. [email or web address] [address], [place], [address], 02/01/2025 12:48:15 Result Notes None recorded. Problems Name Problem SNOMED Code Status Onset Date Resolution Date Notes Provider Name and Address Organization Details Recorded Time Pregnanc y 76570888 Completed 202310/27/2024 Corine vargas, [facility] 5 19:43:53 History of chlamydi al infectio n 650553142 Completed chl neg John Marquez [facility], [facility] 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, [facility] 4 17:47:43 Low lying placenta 279873234 Completed resolved Sakina Cantrell CNM [address], [place], [address], [facility] 4 12:41:38 Mixed anxiety and depressi ve disorder 743951536 Active 2023 Corine vargas, [facility] 4 12:29:58 Problem Notes None recorded. Procedures Surgical History Date Name Laterality Status Provider Name and Address Organization Details Recorded Time 02/19/20 24 Date of Last Pap Smear completed Corine Novak [facility] 02/19/2024 15:34:35 12/26/19 23 Nexplanon Removal completed BALAJI Gandhi- [address], [place], [address], [facility] 12/25/2022 15:19:15 09/07/19 23 Control Implant Insertion completed Jacey Chavez BENNY- [address], [place], [address], [facility] 09/07/2022 14:46:07 08/05/19 11 Tonsillectomy completed Corine Novak [facility] 10/17/2023 12:48:17 Imaging Results None recorded. Procedure Notes None recorded. Medical Equipment None Reported. Allergies Allergen ID Allergen Name Allergen Category Reaction Reaction Severity Criticality Documentation Date Start Date Code Code System Note Provider Name and Address Organization Details Recorded Time [address] [facility] n Not available Not available Not available 04/01/20242001 RxNorm Corine Novak [facility] 18:25:07 Medications Name Sig Start Date Stop Date Status Note LastModified by Organization Details LastModified Time tretinoin 0.1 % topical cream 07/14 completed Not Available Not Available Not Available amoxicillin 500 mg capsule Take 1 capsule every 12 hours by oral route for 7 days. 10/23 completed Not Available Not Available Not Available [...] completed Not Available Not Available Not Available metronidazo le 500 mg tablet Take 1 tablet twice a day by oral route for 7 days. 2024 active Not Available Not Available Not Avai lable sulfamethox azole 800 mg-trimetho prim 160 mg [...] every day by oral route as directed. 2024 active Not Available Not Available Not Avai lable ibuprofen 600 mg tablet 11/21 completed Not [...] Not Available metoclopram bari 10 mg tablet Take 1 tablet 4 times a day by oral route. 04/01 completed Not Available Not Available [...] Not Available Not Available Not Avai lable Anusol-HC 2.5 % topical cream with perineal applicator APPLY A THIN LAYER TO THE AFFECTED AREA(S) BY TOPICAL ROUTE 2-4 TIMESDAIL Y 01/29 completed Not Available Not Available Not Available Se- 19 29 mg iron-1 mg tablet 10/16 completed Not Available Not Available Not Available Vitals Date Recorded Body height Body mass index (BMI) Body weight Systolic And Diastolic Provider Name and Address Organization Details Last Updated DateTime 10/23/2024 162.56 cm 19.6 kg/m2 48353.53 g 113/84 mm[Hg] Corine Novak [facility] 10/23/2024 15:22:45 Date Recorded Body height Body mass index (BMI) Body weight Systolic And Diastolic Provider Name and Address Organization Details Last Updated DateTime 11/11/2024 162.56 cm 19.6 kg/m2 57687.53 g 107/74 mm[Hg] Corine Novak [facility] 11/11/2024 12:41:07 Date Recorded Body height Body mass index (BMI) Body weight Systolic And Diastolic Provider Name and Address Organization Details Last Updated DateTime 01/29/2025 162.56 cm 19.1 kg/m2 53568.75 g 128/80 mm[Hg] Clotilde Santillan [facility] 01/29/2025 11:44:42 Social History Question Answer Notes LastModified by Organizat ion Details LastModified Time Tobacco Smoking Status Never Smoker Sharon Eldridge [facility] 05/01/2023 15:09:00 If You Are , What Was Your Level Of Alcohol Consumption Prior To ? Occasional [email or web address] Information not available 02/19/2024 Are You Blind Or Do You Have Difficulty Seeing? No Information n ot available 03/15/2021 What Is Your Level Of Caffeine Consumption? None Information not available 03/15/2021 In The 14 Days Before Symptom Onset, Have You Had Close Contact With A Laboratory-confirm ed COVID-19 While That Case Was Ill? No [email or web address] Information n ot available 07/14/2021 In The 14 Days Before Symptom Onset, Have You Had Close Contact With A Person Who Is Under Investigation For COVID-19 While That Person Was Ill? No [email or web address] Information not available 07/14/2021 Have You Been To An Area Known To Be High Risk For COVID-19? No [email or web address] Information not available 07/14/2021 Are You Deaf Or Do You Have Serious Difficulty Hearing? No Information not available 03/15/2021 What Type Of Diet Are You Following? REGULAR Information n ot available 03/15/2021 Do You Use Your Seat Belt Or Car Seat Routinely? Yes Information not available 03/15/2021 Are You Sexually Active? Yes [email or web address] Information not available 05/01/2023 Do You Have Smoke And Carbon Monoxide Detectors In Your Home? Yes Information not available 03/15/2021 Do You Use Sunscreen Routinely? Yes Information not available 03/15/2021 Has Tobacco Cessation Counseling Been Provided? No Information not available 05/01/2023 Do You Have Difficulty Walking Or Climbing Stairs? No [email or web address] Information not available 05/01/2023 Sex: Unknown Functional Status Question Answer Note LastModified by Organizat ion Details LastModified Time Do you use any illicit or recreational drugs? Yes marijuana [email or web address] Information not available 02/19/2024 Do you or have you ever used any other forms of tobacco or nicotine? Yes [email or web address] Information not available 02/19/2024 What is your level of alcohol consumption? None Information not available 03/15/2021 Are you able to walk? [email or web address] Information not available 03/15/2021 Are you able to care for yourself? Yes Information not available 05/01/2023 Do you have difficulty dressing or bathing? No [email or web address] Information not available 05/01/2023 Do you or have you ever used e-cigarettes or vape? Current user of electronic cigarettes Information not available 02/19/2024 What is your exercise level? None Information not available 03/15/2021 Mental Status Question Answer Note LastModified by Organization D etails LastModified Time Do you feel stressed (tense, restless, nervous, or anxious, or unable to sleep at night)? [id number] Information not available 03/15/2021 Family History Relationship Description Onset Age of [...] Date of Last Mammogram Date of LMP Was last menstrual period normal Y STIs/STDs Y HPV Vaccine N Duration of Flow (days) 4 14 Current Control Method Are cycles usually normal Y Date of Last Colonoscopy Frequency of Cycle (Q days) 30 Sexually Active? Y Menses Monthly Yes Date of DEXA bone scan Age of first menstrual cycle 18 Date of Last Pap Smear 02/19/2024 Sexual Problems? N Desired Control Method LMP Unknown Obstetrics History GPAL:G 1 P 1 0 0 1 Type Value Full Term 1 Living 1 Total 1 Past Encounters Encounter ID Performer Location Encounter Start Date Encounter Closed Date Diagnosis/Indication Diagnosis SNOMED-CT Code Diagnosis ICD10 Code Diagnosis Note [id number] Jacey Chavez [facility] [address] [address] 03/15/2021 10:56:15 03/15/2021 11:58:21 Cystic acne 52287328 L70.0 N92.0 Discussed all control options in [...] or sooner if questions Gynecologi c examination 46953840 Z01.419 Take Calcium with Vitamin D 1200mg [...] a paper copy of today's plan if desired.De clines need std screen today but will consider moving forwards. [id number] [facility] [address] [address] 07/14/2021 10:04:12 07/14/2021 11:55:46 Acne 30045715 L70.[address] [facility] ion care management 300048206 Z30.9 [id number] [facility] [address] [address] 08/30/2021 09:26:58 08/30/2021 13:38:10 Vaginitis 36764443 N76.0 Today we agreed to treatment and [...] this patient s visit, including available hand coal carrier upon arrive, temperatur e check and being asked a series of screening questions. All staff wore face coverings during this encounter, as well as provided additional cleaning and sanitizing of all surfaces, including countertop s, pens, chairs, door handles, light switches, etc, prior to and following the patient s visit. [id number] BALAJI Boo [facility] [address],[place] [address] 03/20/2022 11:08:37 03/20/2022 12:30:57 Irregular periods 84698541 N92.6 Venereal d isease screening 107642798 Z11.3 Sexually t ransmitted infectious disease 1495066 A64 Vaginitis 53709764 N76.0 Urine hcg (-) today, patient request [...] counseling and review of plan of care. [id number] BALAJI Boo [address] [address] 04/11/2022 10:04:33 04/11/2022 11:47:18 Lesion of vulva 421248983 N90.89 Lesion highly suspicious for HSV infection, discussed this with patientHSV PCR sentBlood STI testing declinedSh e is too early for JARAD for recent (+) chlamydia, she has an appointmen t scheduled to [facility] next month for thisShe stopped taking her OCP due to acne, declines any BC nowCondom use encouraged Vulvar care guidelines discussedW ill await HSV testing Time spent in visit is a total of 30 mins with at least 50% of visit consisting of counseling and review of plan of care. Contracept ion care management 397263212 Z30.9 Venereal d isease screening 778972137 Z11.3 [id number] Jacey Chavez [facility] [address],[place] [address] 09/06/2022 16:53:35 09/06/2022 17:13:39 Contraception care management 309179612 Z30.9 Discussed all control options in depth [...] counseling and review of plan of care. [id number] Jacey Chavez [facility] [address],[place] [address] 09/07/2022 14:11:06 09/07/2022 15:29:09 Implantation of subcutaneous contraceptive 315364034 Z30.9 Patient is here currently on her [...] 3mos med check or sooner if needed [id number] Jacey Chavez [facility] [address],[place] [address] 11/21/2022 15:04:09 11/21/2022 17:23:09 Venereal disease screening 555439221 Z11.3 STD screen swab updatedSTD serum panel updatedNew sexual partnerWil l contact with results Time spent in visit is a total of 15 mins with at least 50% of visit consisting of counseling and review of plan of care. Abnormal u terine bleeding 8079412516 9100 N93.9 UPT negIf continues consider course of estradiol 1mg x 20 days.Under stands that this can be normal 3-6mos with initiation of nexplanon. Will update us Sexually t ransmitted infectious disease 1761330 A64 [id number] Jacey Chavez [facility] [address],[place] [address] 12/25/2022 14:42:59 12/25/2022 15:32:53 Venereal disease screening 703651038 Z11.3 Here today for JARAD.Took all abxPartner treatedUri ne JARAD sentNEg sxs Time spent in visit is a total of 10 mins with at least 50% of visit consisting of counseling and review of plan of care.Not including time spent on procedure. Removal of subcutaneous contraceptive 897385058 Z30.46 Removal site was cleansed with betadine and 3cc of lidocaine used for anesthesia . Device was removed in normal fashion without difficulty . Steri stips and pressure bandage placed. Opts to use CondomsUnd erstands there is no contracept ion (unless uses condoms) once device is removed.Un derstandin g verbalized . [id number] Jacey Chavez [facility] [address],[place] [address] 04/24/2023 15:42:02 04/25/2023 12:38:44 Easy bruising [id number] R58 Today we discussed updating lab work [...] review of plan of care. Cystic acne 94604081 L70 .0 N92.0 Consider derm referral if neeeded [id number] Jacey Chavez [facility] [address],[place] [address] 05/01/2023 15:08:53 05/02/2023 16:57:16 Cystic acne 72242037 L70.0 N92.0 Today we agreed to consider a trial of spironolac tone for help with her acne which is likely related to hormonal changes after removal of nexplanon. She is trying to avoid hormonal BC reports that is greatly effects her moods.She will consider this option & RTO x 4wks med check if decides to pursue.Eduarod padron need updated CMP with potassium levels if continue spironolac tone. Counseled on medication R/B's, Most common side effects, & use. All questions were answered to patient satisfacti on. Time spent in visit is a total of 20 mins with at least 50% of visit consisting of counseling and review of plan of care. [id number] Jacey Chavez [facility] [address],[place] [address] 06/19/2023 09:20:29 06/19/2023 09:55:28 Furuncle of vulva 723562738 N76.4 Boils on vulva found on exam [...] plan of care. Reproducti ve care management 292054522 Z31.9 Trying to conceiveWi ll start PNV Counseled on reproducti ve timeline, signs/sx's . [id number] Jones Koenig MD [facility] [address],[place] [address] 10/17/2023 12:37:37 10/17/2023 13:41:58 Abnormal uterine bleeding [id number] 9100 N93.9 23-year-ol d patient with abnormal [...] was counseling . Disorder o f menstruation 337578015 N92.6 [id number] Jones Koenig MD [facility] [address],[place] [address] 10/28/2023 14:29:56 10/28/2023 15:30:52 Abnormal uterine bleeding 7597002932 9100 N93.9 23-year-ol d patient with abnormal [...] ce. More than 50% was counseling . [id number] Jones Koenig MD [facility] [address],[place] [address] 10/28/2023 15:18:58 10/28/2023 16:39:54 Abnormal uterine bleeding 9769516516 9100 N93.9 this patient is a 23-year-ol [...] More than 50% was counseling . [id number] Jones Koenig MD [facility] [address],[place] [address] 02/19/2024 14:52:45 02/19/2024 15:21:14 Uterine size for dates discrepancy 615542377 O26.841 Z3A.01 [id number] [facility] [address],[place] [address] 02/19/2024 14:52:59 02/19/2024 16:08:22 Amenorrhea 94630625 N91.2 +UPTcontin ue PNVplan 12 week NIPS and new obpap collected Gynecologi c examination 11395969 Z01.419 Nausea and vomiting 1693 1999 R11.2 [id number] Jones Koenig MD [facility] [address],[place] [address] 04/01/2024 17:27:04 04/02/2024 07:54:22 screening 158219762 Z36.82 Z3A.12 [id number] Sakina Cantrell CNM [facility] [address],[place] [address] 04/01/2024 17:27:30 04/02/2024 17:31:29 Gestation period, 12 weeks 35137359 Z3A.12 continue vitamin [id number] Sakina Cantrell CNM [facility] [address],[place] [address] 04/29/2024 16:22:12 04/29/2024 16:50:41 Gestation period, 16 weeks 43514016 Z3A.16 continue vitamin Anxiety 57721894 F41.9 start zoloft 25 mg daily, if any suicidal thoughts to edse risks and benefitsf/ u 4 weeks or sooner if neededmay have reglan if calls [id number] Jones Koenig MD [facility] [address],[place] [address] 05/26/2024 14:35:17 05/26/2024 17:52:03 screening for malformation 816812945 Z36.3 Z3A.20 [id number] Sakina Cantrell [facility] [address],[place] [address] 05/27/2024 17:14:49 05/28/2024 10:29:26 Gestation period, 20 weeks 11239132 Z3A.20 Anxiety 22260183 F41.9 continue zoloft 25 mg daily, if any suicidal thoughts to edse risks and benefitsf/ u 4 weeks or sooner if neededmay have reglan if calls [id number] Jones Koenig MD [facility] [address],[place] [address] 06/24/2024 11:40:27 06/24/2024 12:37:10 Low lying placenta 132200708 O44.42 Z3A.24 [id number] Sakina Cantrell [facility] [address],[place] [address] 06/24/2024 11:41:44 06/24/2024 12:43:47 Gestation period, 24 weeks 658473689 Z3A.24 [id number] Sakina Cantrell [facility] [address],[place] [address] 07/31/2024 11:09:29 07/31/2024 11:59:32 Gestation period, 29 weeks 75077367 Z3A.29 [id number] Jones Koenig MD [facility] [address],[place] [address] 08/12/2024 09:12:24 08/12/2024 10:05:14 Uterine size for dates discrepancy 965815473 O26.843 Z3A.31 [id number] Sakina Cantrell [facility] [address],[place] [address] 08/12/2024 09:12:58 08/12/2024 10:58:29 Gestation period, 31 weeks 79618877 Z3A.31 [id number] Sakina Cantrell [facility] [address],[place] [address] 08/26/2024 15:22:41 08/26/2024 16:03:35 Gestation period, 33 weeks 52553260 Z3A.33 Infection of tooth 33028 8007 K04.7 [id number] Sakina Cantrell [facility] [address],[place] [address] 09/09/2024 14:13:46 09/09/2024 14:53:11 Gestation period, 35 weeks 81163526 Z3A.35 130410 Jones Koenig MD [facility] [address],[place] [address] 09/16/2024 13:54:55 09/16/2024 14:31:09 Low maternal weight gain 24552955 O26.13 Z3A.36 [id number] Sakina Cantrell [facility] [address],[place] [address] 09/16/2024 13:55:25 09/16/2024 15:17:37 Gestation period, 36 weeks 66614865 Z3A.36 [facility] 94388065 F41.9 [id number] Sakina Cantrell [facility] [address],[place] [address] 09/23/2024 14:14:35 09/23/2024 14:44:24 Gestation period, 37 weeks 78955116 Z3A.37 [id number] Sakina Cantrell [facility] [address],[place] [address] 09/30/2024 13:57:10 09/30/2024 14:34:28 Gestation period, 38 weeks 14278449 Z3A.38 301443 Sakina Cantrell [facility] [address],[place] [address] 2024 17:17:21 10/04/2024 23:16:42 Abdominal pain in 172056958 O99.891 [id number] Sakina Cantrell [facility] [address],[place] [address] 10/07/2024 09:37:07 10/07/2024 10:22:59 Gestation period, 39 weeks 95178226 Z3A.39 [id number] Sakina Cantrell [facility] [address],[place] [address] 10/23/2024 15:14:56 10/23/2024 15:47:27 Constipation 32767289 K59.00 continue miralax, d/c iron, ok for gummy vitamin f/u visit Hemorrhoids 05811196 K64 .9 [id number] Sakina Cantrell [facility] [address],[place] [address] 11/11/2024 12:20:06 11/11/2024 13:36:07 Alopecia 28357494 L65.9 Fatigue 00768319 R53.83 care 55654667 8 Z39.2 032190 Jones Koenig MD [facility] [address],[place] [address] 01/06/2025 11:46:15 01/06/2025 13:27:48 Finding of menstrual bleeding 467222659 Z36.87 Z3A.01 [id number] Jones Koenig MD [facility] [address],[place] [address] 01/29/2025 10:59:18 01/29/2025 11:29:28 [id number] Sakina Cantrell CNM [facility] [address] [place] [address] 01/29/2025 10:59:36 01/29/2025 12:07:32 Mixed anxiety and depressive disorder 934946015 F41.8 Amenorrhea 47474052 N91. 2 +UPTcontin ue PNVplan 12 week NIPS and new obpap up to daterefill sertraline Health Concerns Section Related Observation LastModified by Organization Detai ls LastModified Time None Recorded Concern Status LastModified by Organization Details LastModified Time None Recorded Advance Directives Directive None Recorded Payers Insurance Date Sequence Insurance Name Policy Number Policy Shine Covered Member ID Shine Member ID Guarantor Name 02/01/2025 1 [facility] [id number] 1 Cornel Gary [id number] S Mae Montesinos Allgire 10/28/2024 1 [facility] ON OR AFTER 02/02/21 (MEDICAID REPLACEMENT - HMO) Mae Allgire [id number] Mae Montesinos Allgire 10/28/2024 1 [facility] ON OR AFTER 02/02/21 (MEDICAID REPLACEMENT - HMO) Mae Lopezre [id number] Mae Montesinos Allgire 01/03/2025 2 [place] [facility] Mae Allgire [id number] Mae Montesinos Allgire 11/06/2024 2 [facility] ON OR AFTER 02/02/21 (MEDICAID REPLACEMENT - HMO) Mae Allgire [id number] Mae Jaguar Allgire 10/28/2024 1 [facility] ON OR AFTER 02/02/21 (MEDICAID REPLACEMENT - HMO) Mae Allgire [id number] Mae Montesinos [employer] Notes Date Note Type Note Provider Name and Address Organization Details Recorded Time 10/23/2024 text/html c/o hemorrhoids and constipation. delivered 10/14/24, no bowl movement since, started miralax yesterday, has an enema at home if needed, painful due to hemorrhoids Sakina Cantrell CNM [address], [place], [address], [facility] 10/23/2024 15:36:23 11/11/2024 text/html VisitReported bypatient.Quality:N Context:complicatio ns of : none; complications of labor: none; complications: none Associated Symptoms:no abnormal bleeding; no vaginal discharge; no pelvic pain; laceration well healed; no constipation; no fecal incontinence; no dysuria; no urinary incontinence; no fever; no problems; no mastitis; normal mood Contraception Plan:declines contraception Corine Novak null, [facility] 11/11/2024 21:56:25 01/29/2025 text/html amneorrhea, +UPT , doing well, wants to restart sertraline but mood is good so far Sakina Cantrell, [facility] [address], [place], [address], [facility] 01/29/2025 12:19:32 OBGyn Episode Ob Episode Information Episode Created Date Number of Fetuses Patient Bloodtype Patient rh Status Prepregnancy Weight lbs Domestic Partner Domestic Partner Phone Father Name Warehouse [employer] Status 04/01/20 24 1 A Positive 104 Stan Willyar d CLOSED Fetus Data First Name Last Name Admitted to NICU Weight (g) Sex Living Outcome Pediatric Complications Fetus ID Race Codes Race Delivery Type M true Full Term [id number] Vaginal Delivery Problems Problem Notes 32wk growth us Problem Name Start Date End Date Resolution Snomed Code Not e History of chlamydial infection 395092306 chl neg Alpha thalassemia 04/16/2024 66540353 s ilent carrier; low risk Low lying placenta 820726884 r esolved Valerio Calculation Initial Valerio Date Initial Exam Date Initial Exam Provider Initial Ultrasound Date Last Menstrual Period Date Ultra Sound Weeks Gestation 10/11/2024 02/19/2024 Sakina Cantrell 02/19/2024 12/22/2023 6 Eighteen To [...] Weight in lbs Pre/Post Dialysis Refused Weight 104.274134491753 BP Diastolic BP Location Tested BP Systolic [...] Type Weight in lbs Pre/Post Dialysis Refused 105.425451503483 BP Diastolic BP Location Tested BP Systolic [...] Type Weight in lbs Pre/Post Dialysis Refused 109.918006022365 BP Diastolic BP Location Tested BP Systolic [...] Type Weight in lbs Pre/Post Dialysis Refused 118.225411972601 BP Diastolic BP Location Tested BP Systolic [...] Type Weight in lbs Pre/Post Dialysis Refused 122.913186048229 BP Diastolic BP Location Tested BP Systolic [...] Type Weight in lbs Pre/Post Dialysis Refused 123.473471691187 BP Diastolic BP Location Tested BP Systolic [...] Weight in lbs Pre/Post Dialysis Refused Weight 123.312865261676 BP Diastolic BP Location Tested BP Systolic [...] Weight in lbs Pre/Post Dialysis Refused Weight 125.752228459209 BP Diastolic BP Location Tested BP Systolic [...] Type Weight in lbs Pre/Post Dialysis Refused 126.85188756508 BP Diastolic BP Location Tested BP Systolic [...] Type Weight in lbs Pre/Post Dialysis Refused 127.840404784233 BP Diastolic BP Location Tested BP Systolic [...] Weight in lbs Pre/Post Dialysis Refused Weight 131.957996700016 BP Diastolic BP Location Tested BP Systolic [...] Weight in lbs Pre/Post Dialysis Refused Weight 131.967630436275 BP Diastolic BP Location Tested BP Systolic BP Type 78 131 Fetus Heart Rate Present Fetus Movement Comments Flowsheet Date 10/07/2024 Frias Score Blood Edema Fundus Height Fundus Units Glucose Ketones Leukocytes Nitrite Labor Signs Protein Cervic Dilation Cervic Effacement Cervic Station neg 37 cm Type Weight in lbs Pre/Post Dialysis Refused 130.495159244315 BP Diastolic BP Location Tested BP Systolic BP Type 83 122 Fetus Heart Rate Present A 145 Fetus Movement A Yes Comments Patient is having some pain, contractions and discharge. IOL next saturday at 1600, membrane sweep, labor precautions +FM, constipation resolved Flowsheet Date 10/23/2024 Frias Score Blood Edema Fundus Height Fundus Units Glucose Ketones Leukocytes Nitrite Labor Signs Protein Cervic Dilation Cervic Effacement Cervic Station Type Weight in lbs Pre/Post Dialysis Refused Weight 114.321022046030 BP Diastolic BP Location Tested BP Systolic BP Type 84 113 Fetus Heart Rate Present Fetus Movement Comments Menstrual History Last Menstrual Date Menses Monthly On Bcp Conception Prior Menses Frequency Hcg Plus Date Menarche Onset Age 0512/22/2023 true false Delivery Information Delivery Date Delivery Type Labor Anesthesia Weeks Gestation Incision Type Labor Labor Length Hrs Delivered By Post Complications Tubal Sterilization Discharge Date Comments 5 Induce d 40.3 7.46 Sakina Cantrell CNJaguar Discharge Information Feeding Method Contraceptive Method Maternal HG B and HCT Levels
--- OUTSIDE RECORDS SUMMARY | 2025-02-09 09:14 | XMS_ITS | Patient Health Record ---
Author Organization [facility] Address [address] [place] [address] Care Team Providers [employer] Professional Name Role Phone Cesilia Ibanez Primary Care Provider [phone] Cesilia Ibanez Unavailable [phone] Allergies Allergen (clinical drug ingredient) Drug/Non Drug Allergy documented on EMR Reaction Allergy Type Onset Date Status carbamazepine Tegretol Unknown Drug Allergy Act phill Reason For Referral No Information Medications Medication SIG (Take, Route, Fr equency, Duration) Notes Start Date End Date Status Wellbutrin 75 MG 1 tablet Orally Twic e a day; Duration: 30 day(s) 10/10/2021 Active Social History Sex Assigned At : Social History Observation Description Sex Assigned At Female Problems Problem Type SNOMED Code ICD Code Onset Dates Problem Status W/U Status Risk Notes Problem Attention deficit hyperactivity disorder (755695303) ADHD (attention deficit hyperactivity disorder) (F90.9) Active confirmed Problem Mixed bipolar I disorder (21469447) Bipolar 1 disorder, mixed (F31.60) Active confirmed Rule out Problem Disruptive mood dysregulation disorder (451649519) DMDD (disruptive mood dysregulation disorder) (F34.81) Active confirmed Plan Of Treatment No Information Insurance Providers Payer Name Payer Address Payer Phone Subscriber Number Group Number Insured Name Patient Relationship to Insured Coverage Start Date Coverage End Date [facility] Att Claims Department [address] [place] [address] [id number] Mae Frances Self - patient is the insured 9 [employer] Att[employer] Claims Department [address] [place] [address] [phone] [id number] Mae Frances Self - patient is the insured 1 Medical (General) History Surgical History Surgery Date(Month/Year) Hospitalization History Reason Date(Month/Year)
[2025-02-09 09:27] VITALS: BP 122/76; PULSE 77; RESP 16; TEMP 36.4; O2SAT 100
[2025-02-09 09:29] LABS: Hematocrit 39.2 % (37.0-47.0); Hemoglobin 13.1 g/dL (12.0-15.0); Immature Granulocyte Percent A 0.5 % (0-0.5); Lymphocytes Absolute Auto 0.92 K/mm3 (0.9-3.2); Mean Corpuscular HGB Conc 33.4 g/dl (32-36); Mean Corpuscular Hemoglobin 26.2 pg (26-34); Mean Corpuscular Volume 78.4 fl (80-100); Nucleated Red Blood Cells Absolute Auto 0.000 K/mm3 (0.0-0.012); Nucleated Red Blood Cells Perc 0.0 % (0.0-0.2); Platelet Count Result 333 k/mm3 (150-375); Red Blood Count 5.00 M/mm3 (4.2-5.4); White Blood Count 12.8 K/mm3 (4.5-10.0)
--- NOTE | 2025-02-09 09:31 | PC.NURSE ---
patient up to the bathroom for UA. States that her pain and nausea has increased. ERP made aware.
--- NOTE | 2025-02-09 09:40 | ED_ITS ---
HPI - Nausea/Vomiting/Diarrhea General Chief complaint: Nausea/Vomiting/Diarrhea Stated complaint: n/v, 9 weeks Time Seen by Provider: 02/09/25 09:17 Source: patient Mode of arrival: ambulatory Limitations: no limitations History of Present Illness HPI Narrative: This is a 24-year-old female that presents to the emergency department for nausea and vomiting in first-trimester . Reports she is about 9 weeks . She has had routine care. Her OB is Sakina Cantrell. Reports this is her 2nd . She had a lot of trouble with nausea and vomiting in her 1st as well. Denies fever, dysuria, hematuria, vaginal bleeding. Related Data Home Medications ?Medication ?Instructions ?Recorded ?Confirmed ?Last Taken ?Type vitamins no.119-iron 1 tablet PO DAILY 03/30/24 11/12/24 09/19/24 History fumarate 29 mg-folic acid 1 mg tablet (Se- 19) sertraline 25 mg tablet 25 mg PO DAILY 09/19/24 11/12/24 09/19/24 History Allergies Allergy/AdvReac Type Severity Reaction Status Date / Time carbamazepine Allergy Intermediate Rash Verified 11/12/24 08:07 Review of Systems 2 Review of Systems: All systems reviewed & are unremarkable except as noted in HPI and below PMFSH Past Medical History Medical History COVID-19 History of iron deficiency anemia Sinusitis chronic, frontal Sensory disorder Bipolar disorder Surgical History Surgical History History of tonsillectomy Family History Family History Other No significant family history Social History Social History Smoking status: Current every day smoker Tobacco type: e-cigarettes/vaping Additional smoking assessment comments: marijuana for nausea Alcohol intake: never Substance use: never Substance use type: marijuana Do You Feel Safe in your Home?: No Lack of Transportation: No Lack of Food: Never True Current Housing: I Have Housing Concerned About Future Housing: No Difficulty Paying Gas/Electric Bills: No Difficulty Paying for Meds: No Currently Unemployed: No Education: High School Diploma/GED Difficulty w/ Childcare or Family Care: No Living arrangements: with family Occupation/Education: student Gender identity (if verbalized by the patient): Female Spiritual care concerns: No Exam 2 Narrative: GENERAL: Well-appearing, well-nourished, and in no acute distress. HEAD: Normocephalic, atraumatic. EYES: EOMI. CHEST: Clear to auscultation. No respiratory distress. No wheezes rales or rhonchi HEART: Regular rate and rhythm. No murmur heard. Normal peripheral pulses. ABDOMEN: Soft, nontender, nondistended, normal active bowel sounds. EXTREMITIES: Normal range of motion. No edema. SKIN: Warm, dry, no rash. NEURO: No focal deficits. Alert and oriented x3. PSYCH: Normal mood and affect Course Course Emergency Course: Patient feeling much better. Reports she is ready for discharge. Tolerating oral intake Vital Signs Vital signs: Vital Signs Temperature 97.6 F 02/09/25 09:27 Pulse Rate 77 02/09/25 09:27 Respiratory Rate 16 02/09/25 09:27 Blood Pressure 122/76 02/09/25 09:27 Pulse Oximetry 100 02/09/25 09:27 Oxygen Delivery Room Air 02/09/25 09:27 Temperature 98.6 F 02/09/25 12:40 Pulse Rate 68 02/09/25 12:40 Respiratory Rate 18 02/09/25 12:40 Blood Pressure 101/57 L 02/09/25 12:40 Pulse Oximetry 98 02/09/25 12:40 Oxygen Delivery Room Air 02/09/25 09:27 MDM - Nausea/Vomiting/Diarrhea MDM Narrative Medical decision making narrative: Patient presents the emergency department for nausea and vomiting in first- trimester . She is afebrile and nontoxic appearing. Her vitals are stable. CBC with mild leukocytosis to 12.8. Metabolic panel with some evidence of dehydration, patient hydrated with 2 L of IV fluids. Urine with 2+ leuk esterase, 51-100 white blood cells, also moderate squamous epithelial cells. This will be sent for culture. Patient will be given an initial dose of Rocephin, will hold off on continued antibiotics awaiting culture results. She does not currently have any urinary symptoms. ultrasound shows single live embryo. Patient feeling much better. Reports she is ready for discharge. Tolerating oral intake. She is to follow up with her OB. She was given warnings to return to the ER Differential Diagnosis Differential diagnosis: Likely food poisoning, gastroenteritis, drug-induced nausea and vomiting, dehydration and other (Nausea and vomiting during ) Lab Data Attestation: I reviewed the patient's lab results. 02/09/25 09:23 02/09/25 09:20 Labs: Lab Results 02/09/25 02/09/25 02/09/25 Range/Units 09:20 09:23 09:39 WBC 12.8 H (4.5-10.0) K/mm3 RBC 5.00 (4.2-5.4) M/mm3 Hgb 13.1 D (12.0-15.0) g/dL Hct 39.2 (37.0-47.0) % MCV 78.4 L (80-100) fl MCH 26.2 (26-34) pg MCHC 33.4 (32-36) g/dl RDW 14.4 (11.5-14.5) % Plt Count 333 D (150-375) k/mm3 MPV 10.0 (7.4-10.4) fl Immature Gran % (Auto) 0.5 (0-0.5) % Neut % (Auto) 90.5 H (45.5-73.1) % Lymph % (Auto) 7.2 L (18.3-44.2) % [place] % (Auto) 1.6 L (2.6-8.5) % Eos % (Auto) 0.0 (0-4.4) % Baso % (Auto) 0.2 (0.2-1.2) % Lymph # (Auto) 0.92 (0.9-3.2) K/mm3 [place] # (Auto) 0.2 (0.1-0.6) K/mm3 Eos # (Auto) 0.0 (0-0.3) K/mm3 Baso # (Auto) 0.0 (0.0-0.1) K/mm3 Abs Immat Gran (auto) 0.06 H (0.00-0.031) K/mm3 Absolute Neuts (auto) 11.6 H (1.3-6.7) K/mm3 Absolute Nucleated RBC 0.000 (0.0-0.012) K/mm3 Nucleated RBC % 0.0 (0.0-0.2) % Sodium 135 L (137-145) mmol/L Potassium 3.6 (3.4-5.0) mmol/L Chloride 102 (98-107) mmol/L Carbon Dioxide 20 L (22-30) mmol/L Anion Gap 13 H (4-12) mmol/L BUN 11 (7-17) mg/dL Creatinine 0.54 L (0.7-1.0) mg/dL Estim Creat Clear Calc 111 ml/min Estimated GFR > 60 (59 - ) Glucose 135 H (65-110) mg/dL Calcium 9.8 (8.4-10.2) mg/dL Total Bilirubin 0.6 (0.2-1.3) mg/dL AST 35 (14-36) U/L ALT 26 (6-35) U/L Alkaline Phosphatase 50 (38-126) U/L Total Protein 7.8 (6.3-8.2) g/dL Albumin 4.3 (3.5-5.1) g/dL Lipase 65 (23-300) U/L Urine Color Dark yellow (Yellow) Urine Appearance Cloudy H (Clear) Urine pH 6.5 (5.0-9.0) Ur Specific [place] 1.027 (1.001-1.035) Urine Protein 1+ H (Negative) mg/dL Urine Glucose (UA) Negative (Negative) mg/dL Urine Ketones 3+ H (Negative) mg/dL Ur Blood (Man) 3+ H (Negative) Urine Nitrate Negative (Negative) Urine Bilirubin Negative (Negative) Urine Urobilinogen 1.0 (<2.0) mg/dL Add Ur Microanalysis Reviewed Leukocyte Esterase Rfl 2+ H (Negative) ROSALIE/UL Urine RBC >100 H (0-2) /hpf Urine WBC 51-100 H (0-3) /hpf Ur Squamous Epith Cells Moderate (Few) /hpf Urine Bacteria Rare /hpf Urine Casts 3-5 Imaging Data Radiologist's impression: ITS Impressions Ultrasound 02/09/25 11:40 IMPRESSION: Single live embryo with estimated date of delivery of 09/06/2025. Critical Care Time Critical Care Time Critical Care Time: No Discharge Plan Discharge Clinical Impression: Nausea and vomiting during , Acute dehydration Patient Disposition: Home Condition: Improved Instructions: Nausea and Vomiting in (ED), Dehydration (ED) Additional Instructions: Return to the ER if you experience fever, chest pain, shortness of breath, abdominal pain with nausea and vomiting, you are unable to keep down liquids or solids, pelvic cramping, vaginal bleeding, or any other symptoms that are concerning to you Take a Vitamin B6 and Unisom (25mg tab) nightly. You can get these medications over the counter. This will help prevent nausea. Reglan as needed for nausea. Small, frequent meals. [place] diet. Remain well hydrated You had some white blood cells in your urine, I believe this was likely a contamination. We will await culture results to decide on treatment Follow up with your OB Patient Language: Japanese Prescriptions: New metoclopramide HCl 5 mg tablet 5 mg PO Q8H PRN (Reason: nausea and vomiting) Qty: 10 0RF No Action Se-Kwasi 19 29 mg iron- 1 mg tablet 1 tablet PO DAILY sertraline 25 mg tablet 25 mg PO DAILY Follow-up/Referrals: Sakina Cantrell CNM [Primary Care Provider] -
[2025-02-09 09:44] LABS: Alanine Aminotransferase 26 U/L (6-35); Albumin Level 4.3 g/dL (3.5-5.1); Alkaline Phosphatase 50 U/L (38-126); Anion Gap 13 mmol/L (4-12); Aspartate Amino Transferase 35 U/L (14-36); Bilirubin,Total 0.6 mg/dL (0.2-1.3); Blood Urea Nitrogen 11 mg/dL (7-17); Calcium 9.8 mg/dL (8.4-10.2); Carbon Dioxide 20 mmol/L (22-30); Chloride 102 mmol/L (98-107); Estimated CRCL calculation 111 ml/min; Estimated Glomerular Filt Rate > 60; Glucose 135 mg/dL (65-110); Lipase 65 U/L (23-300); Potassium 3.6 mmol/L (3.4-5.0); Sodium 135 mmol/L (137-145); Total Protein 7.8 g/dL (6.3-8.2)
[2025-02-09] MEDS: METOCLOPRAMIDE HCL INJ 10 MG/2 ML VIAL IV PUSH (09:44)
[2025-02-09] MEDS: SODIUM CHLORIDE 0.9% IV 1,000 ML 999 ML IV CONT (09:44)
--- OUTSIDE RECORDS SUMMARY | 2025-02-09 09:46 | XMS_ITS | Encounter Summary ---
Author Organization [facility] Address 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
--- OUTSIDE RECORDS SUMMARY | 2025-02-09 09:46 | XMS_ITS | Clinical Summary ---
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
--- OUTSIDE RECORDS SUMMARY | 2025-02-09 09:46 | XMS_ITS | Referral Summary ---
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
--- OUTSIDE RECORDS SUMMARY | 2025-02-09 09:46 | XMS_ITS | Encounter Summary ---
Author Organization [facility] Address [address] [facility] Attn: Epic [place] [address] Care Team Providers Care Nursing Tech Name Role Phone Unavailable Primary Care Provider Unavailabl e Encounter Details Date Type Department Care Team (Late st Contact Info) Description 2002 Inpatient Historical [place], Rodger Carter MD [address] [facility] [place] [address] Sakina Stoddard MD [address] [facility] [address] [place] [address] SINGL BORN IN HOSP-NO C/DELIVERY (Primary Dx) Social History Tobacco Use Types Packs/Day Years Used Date Smoking Tobacco: Never Assessed Comments Unknown Sex and Gender Information Value Date Recorded Sex Assigned at Not on file 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
--- OUTSIDE RECORDS SUMMARY | 2025-02-09 09:46 | XMS_ITS | Clinical Summary ---
Author Organization [facility] Address [address] [facility] [address] [place] [address] Care Team Providers Care Cost Analyst Name Role Phone None, Physician Primary Care Provider Unavailabl e Source Comments [facility],non-owned Affiliates and Associated Physician Practices is amultiple site organization consisting of ambulatory clinics and hospital sitesin [place], [place], [place] and [place]. This disclosure is being madepursuant to the Care Everywhere program and may not contain all information available regarding this patient. Last updated 18.[facility] [employer] Allergies Active Allergy Reactions Criticality Noted Date [...] as an outpatient with Dr. Lomas at [facility] Constipation, unspecified constipation type 01/03 Assessment [...] 09/17/2018 Assessment & Plan (09/17/2018 8:55 PM EMBEDDED NURSE): 17 y.o. F with DMDD, Bipolar disorder [...] F/u with [facility] on Saturday Jade, Sheet Ironworker at [facility] ([phone]) Counseling regarding goals of care 01/28/2012 Overview [...] weeks. If unable to transfer to [facility] directly will send patient home [...] Overview (03/26/2012): Followed by Dr. Nilsa Rivera @[phone], ALT# [phone]. Spoken to during the 01/24 admission to [...] therapist until a bed is available at [facility]. 03/24/[address] Nilsa Rivera @[phone], ALT# [phone], Psychiatrist taking care of Mae. She informed [...] bloody bowel movements. Social/Behavioral for placement at [facility] was explored but no bed was [...] on file Legal Sex Female 5:44 AM EMBEDDED NURSE Gender Identity Not on file Sexual Orientation [...] patient's age to complete this topic [place] [address] [address] [place] [id number] [facility] Member Subscriber Plan / Payer (Ef fective 2019-Present) Name:Mae Frances Relation to Subscriber:Self Name:Mae Frances Payer ID:[id number] (NAIC) Group ID:Not on file Type:Medicaid Managed Care Address: ATTN CLAIMS DEPARTMENT [place] [id number] Advance Directives * Full Code (Latest Code Status on File) Date Activated Date Inactivated Comments 01/15/2023 12:15 AM 01/16/2023 3:33 PM Care Teams Cost Analyst Relationship Specialty Start Date End Date None, Physician [address] [place] [address] PCP - General 03/25/23
--- OUTSIDE RECORDS SUMMARY | 2025-02-09 09:46 | XMS_ITS | Encounter Summary ---
Author Organization [facility] Address [address] [place] [address] Care Team Providers Care Ecology Teacher Name Role Phone Unavailable Primary Care Provider Unavailabl e Encounter Details Date Type Department Care Team (Late st Contact Info) Description 2002 Outpatient Historical [facility] Pediatrics - [facility] [address] [address] Rodger Verma MD [id number] [place] [address] Social History Tobacco Use Types Packs/Day Years Used Date Smoking Tobacco: Never Assessed Comments Unknown Sex and Gender Information Value Date Recorded Sex Assigned at Not on file Legal Sex Female 2:53 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
--- OUTSIDE RECORDS SUMMARY | 2025-02-09 09:46 | XMS_ITS | Encounter Summary ---
Author Organization [facility] Address [address] [place] [address] Care Team Providers Care Toll Relief Operator Name Role Phone Unavailable Primary Care Provider Unavailabl e Encounter Details Date Type Department Care Team (Late st Contact Info) Description 2002 Outpatient Historical [facility] Pediatrics - [facility] [address] [facility] [address] [address] Radhika Emmanuel MD NO ADDRESS ON FILE Social History Tobacco Use Types Packs/Day Years Used Date Smoking Tobacco: Never Assessed Comments Unknown Sex and Gender Information Value Date Recorded Sex Assigned at Not on file Legal Sex Female 2:53 AM 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
--- OUTSIDE RECORDS SUMMARY | 2025-02-09 09:46 | XMS_ITS | Encounter Summary ---
Author Organization [facility] Address 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
--- OUTSIDE RECORDS SUMMARY | 2025-02-09 09:46 | XMS_ITS | Clinical Summary ---
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
[2025-02-09] MEDS: FAMOTIDINE 20 MG/2 ML VIAL IV PUSH (09:49)
[2025-02-09 09:50] VITALS: BP 121/65; PULSE 100; RESP 18; TEMP 36.9; O2SAT 98
[2025-02-09 10:10] LABS: Add Urine Microscopic? YES; Appearance Urine Cloudy (Clear); Glucose Urine UA Negative (Negative); Leukocyte Esterase Ur 2+ LEU/UL (Negative); Need Manual Microscopic Reviewed; Nitrate Urine Negative (Negative); Specific Grav Ur 1.027 (1.001-1.035)
[2025-02-09] MEDS: LACTATED RINGERS 1,000 ML 999 ML IV CONT (10:46)
[2025-02-09 11:23] VITALS: PULSE 81; RESP 18; TEMP 36.8; O2SAT 100
[2025-02-09] MEDS: cefTRIAXone 1 GM in SODIUM CHLORIDE 0.9% IV 50 ML 100 ML IVPB (11:31)
[2025-02-09 12:40] VITALS: BP 101/57; PULSE 68; RESP 18; TEMP 37; O2SAT 98
== END 2025-02-09 12:15 | disposition home or self-care (01) ==
PROVIDERS: Emergency Provider Physician Assistant; PCP Advanced Practice Midwife
DX: O21.1 Hyperemesis gravidarum with metabolic disturbance (principal); Z3A.09 9 weeks gestation of pregnancy; O99.341 Other mental disorders complicating pregnancy, first trimester; F31.9 Bipolar disorder, unspecified; R82.998 Other abnormal findings in urine
CPT/HCPCS: 36415; 76801; 80053; 81001; 83690; 85025; 87086; 96361; 96365; 96375; 99284; J0696; J1200; J2765; J7030; J7120

== ENCOUNTER 2025-03-15 10:57 | Emergency (ER) | payer BC, MEDICAID, SELFPAY ==
--- OUTSIDE RECORDS SUMMARY | 2025-03-15 11:02 | XMS_ITS | Clinical Summary ---
Author Organization [facility] Address [address] [place] [address] Care Team Providers Care Draw Frame Runner Name Role Phone None, Physician Primary Care Provider Unavailabl e Source Comments [facility],non-owned Affiliates and Associated Physician Practices is amultiple site organization consisting of ambulatory clinics and hospital sitesin [place], [place], [place] and [place]. This disclosure is being madepursuant to the Care Everywhere program and may not contain all information available regarding this patient. Last updated 18.[facility] [employer] Allergies Active Allergy Reactions Criticality Noted Date [...] as an outpatient with Dr. Lomas at [facility] Constipation, unspecified constipation type 01/03 Assessment & [...] Admit to General Medicine - Dr Davin Myao Team - Attempted NG placement which patient [...] 09/17/2018 Assessment & Plan (09/17/2018 8:55 PM FINANCIAL ANALYSIS CONSULTANT): 17 y.o. F with DMDD, Bipolar disorder [...] F/u with [facility] on Saturday Jade, Vice President Of Communications at [facility] [phone]) Counseling regarding goals of care 01/28/2012 Overview [...] several weeks. If unable to transfer to [facility] directly will send patient home with [...] Overview (03/26/2012): Followed by Dr. Nilsa Rivera @[phone], ALT# [phone]. Spoken to during the 01/24 admission to [...] therapist until a bed is available at [facility]. 03/24/[address] Nilsa Rivera @[phone], ALT# [phone], Psychiatrist taking care of Mae. She informed [...] on file Legal Sex Female 5:44 AM FINANCIAL ANALYSIS CONSULTANT Gender Identity Not on file Sexual Orientation [...] 11/21/2022, 03/20/2022, Additional history exists COVID-19 VACCINE ( - season) 2024 11/24/2020, 11/03/2020 INFLUENZA VACCINE (#1) 2025 05/17/2020, 2019 ZOSTER VACCINE (1 of 2) 2052 HIV SCREENING Completed 11/21/2022, 03/20/2022 HIB VACCINE Aged Out No longer eligi ble based on patient's age to complete this topic MENINGOCOCCAL GROUPS A/C/Y/W VACCINE Aged Out No longer eligible based on patient's age to complete this topic PNEUMOCOCCAL VACCINE Aged Out No long er eligible based on patient's age to complete this topic [place] [address] [place] [address] [place] [id number] [facility] Member Subscriber Plan / Payer (Ef fective 2019-Present) Name:Mae Frances Relation to Subscriber:Self Name:Mae Frances Payer ID:[id number] (NAIC) Group ID:Not on file Type:Medicaid Managed Care Address: ATTN CLAIMS DEPARTMENT [place] [id number] Advance Directives * Full Code (Latest Code Status on File) Date Activated Date Inactivated Comments 01/15/2023 12:15 AM 01/16/2023 3:33 PM Care Teams Draw Frame Runner Relationship Specialty Start Date End Date None, Physician [address] [place] [address] PCP - General 03/25/23
--- OUTSIDE RECORDS SUMMARY | 2025-03-15 11:02 | XMS_ITS | Encounter Summary ---
Author Organization [facility] Address [address] [facility] Attn: Epic [place] [address] Care Team Providers Care Drill Sergeant Name Role Phone Unavailable Primary Care Provider Unavailabl e Encounter Details Date Type Department Care Team (Late st Contact Info) Description 2002 Inpatient Historical [place], Rodger Carter MD [address] [facility] [address] [place] [address] Sakina Stoddard MD [address] [facility] [address] [place] [address] SINGL BORN IN HOSP-NO C/DELIVERY (Primary Dx) Social History Tobacco Use Types Packs/Day Years Used Date Smoking Tobacco: Never Assessed Comments Unknown Sex and Gender Information Value Date Recorded Sex Assigned at Not on file 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
--- OUTSIDE RECORDS SUMMARY | 2025-03-15 11:02 | XMS_ITS | Clinical Summary ---
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
--- OUTSIDE RECORDS SUMMARY | 2025-03-15 11:02 | XMS_ITS | Encounter Summary ---
Author Organization [facility] Address [address] [place] [address] Care Team Providers Care Checkout Supervisor Name Role Phone Unavailable Primary Care Provider Unavailabl e Encounter Details Date Type Department Care Team (Late st Contact Info) Description 2002 Outpatient Historical [facility] Pediatrics - [facility] [address] [facility] [address] [address] Radhika Emmanuel MD NO ADDRESS ON FILE Social History Tobacco Use Types Packs/Day Years Used Date Smoking Tobacco: Never Assessed Comments Unknown Sex and Gender Information Value Date Recorded Sex Assigned at Not on file Legal Sex Female 2:53 AM SURGERY AIDE Gender Identity Not on file Sexual Orientation Not on file documented as of this encounter Plan of Treatment Not on file documented as of this encounter Visit Diagnoses Not on filedocumented in this encounter
--- OUTSIDE RECORDS SUMMARY | 2025-03-15 11:02 | XMS_ITS | Clinical Summary ---
Author Organization [facility] Address [address] [place] [address] Phone Care Team Providers Care Certified Prosthetist Vice President Name Role Phone Unavailable Primary Care Provider [...] drink = 0.6 oz pur e alcohol) Comments No Sex and Gender Information Value Date Recorded Sex Assigned at Not on file Legal Sex Female 2:53 AM LABOR/EXCAVATOR Gender Identity Not on file Sexual Orientation [...]
--- OUTSIDE RECORDS SUMMARY | 2025-03-15 11:02 | XMS_ITS | Encounter Summary ---
Author Organization [facility] Address [address] [place] [address] Care Team Providers Care Angiography Technologist Name Role Phone Unavailable Primary Care Provider Unavailabl e Encounter Details Date Type Department Care Team (Late st Contact Info) Description 2002 Outpatient Historical [facility] Pediatrics - [facility] [address] [address] Rodger Verma MD [id number] [place] [address] Social History Tobacco Use Types Packs/Day Years Used Date Smoking Tobacco: Never Assessed Comments Unknown Sex and Gender Information Value Date Recorded Sex Assigned at Not on file Legal Sex Female 2:53 AM CAN TESTER Gender Identity Not on file Sexual Orientation Not on file documented as of this encounter Plan of Treatment Not on file documented as of this encounter Visit Diagnoses Not on filedocumented in this encounter
--- OUTSIDE RECORDS SUMMARY | 2025-03-15 11:02 | XMS_ITS | Encounter Summary ---
Author Organization [facility] Address [address] [place] [address] Care Team Providers Care Hang Gliding Instructor Name Role Phone Unavailable Primary Care Provider Unavailabl e Encounter Details Date Type Department Care Team (Late st Contact Info) Description 2002 Outpatient Historical [facility] Hearing Services [address] [place] [address] Cristel Nelson AU.D [address] [place] [address] Social History Tobacco Use Types Packs/Day Years Used Date Smoking Tobacco: Never Assessed Comments Unknown Sex and Gender Information Value Date Recorded Sex Assigned at Not on file Legal Sex Female 2:53 AM SPECIAL POLICE Gender Identity Not on file Sexual Orientation Not on file documented as of this encounter Plan of Treatment Not on file documented as of this encounter Visit Diagnoses Not on filedocumented in this encounter
--- OUTSIDE RECORDS SUMMARY | 2025-03-15 11:02 | XMS_ITS | Encounter Summary ---
Author Organization [facility] Address 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
[2025-03-15 11:13] VITALS: BP 107/68; PULSE 70; RESP 16; TEMP 36.6; O2SAT 100
--- OUTSIDE RECORDS SUMMARY | 2025-03-15 12:14 | XMS_ITS | Clinical Summary ---
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
--- OUTSIDE RECORDS SUMMARY | 2025-03-15 12:14 | XMS_ITS | Patient Health Record ---
Author Organization [facility] Address [address] [place] [address] Care Team Providers Care Ecology Teacher Name Role Phone Cesilia Ibanez Primary Care Provider Cesilia Ibanez Unavailable [phone] Allergies Allergen (clinical drug ingredient) Drug/Non Drug [...] Problem Status W/U Status Risk Notes Problem ADHD (attention deficit hyperactivity disorder) (F90.9) Active confirmed Problem Mixed bipolar I disorder (66407075) Bipolar 1 disorder, mixed (F31.60) Active confirmed Rule out Problem Disruptive mood dysregulation disorder (194230874) DMDD (disruptive mood dysregulation disorder) (F34.81) Active confirmed Plan Of Treatment No Information Insurance Providers Payer Name Payer Address Payer Phone Subscriber Number Group Number Insured Name Patient Relationship to Insured Coverage Start Date Coverage End Date [facility] Attn Claims Department [address] [place] [address] [phone] [id number] Mae Frances Self - patient is the insured 9 [facility] Attn Claims Department [address] [place] [address] [phone] Mae Frances Self - patient is the insured 1 Medical (General) History Surgical History Surgery Date(Month/Year) Hospitalization History Reason Date(Month/Year)
--- OUTSIDE RECORDS SUMMARY | 2025-03-15 12:14 | XMS_ITS | Clinical Summary ---
Author Organization [facility] Address [address] [place] [address] Phone Care Team Providers Care Intern Product Marketing Manager Name Role Phone Unavailable Primary Care [...] on file Legal Sex Female 2:53 AM OSTEOPATHIC RESIDENT Gender Identity Not on file Sexual Orientation [...]
--- OUTSIDE RECORDS SUMMARY | 2025-03-15 12:14 | XMS_ITS | Encounter Summary ---
Author Organization [facility] Address 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
--- OUTSIDE RECORDS SUMMARY | 2025-03-15 12:14 | XMS_ITS | Encounter Summary ---
Author Organization [facility] Address [address] [facility] Attn: [place] [address] Care Team Providers Care Collection Manager Name Role Phone Unavailable Primary Care Provider Unavailabl e Encounter Details Date Type Department Care Team (Late st Contact Info) Description 2002 Inpatient Historical [place], Rodger Carter MD [address] [facility] [id number] [place] [address] Sakina Stoddard MD [address] 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
--- OUTSIDE RECORDS SUMMARY | 2025-03-15 12:14 | XMS_ITS | Encounter Summary ---
Author Organization [facility] Address [address] [place] [address] Care Team Providers Care Blood Bank Laboratory Professional Name Role Phone Unavailable Primary Care Provider Unavailabl e Encounter Details Date Type Department Care Team (Late st Contact Info) Description 2002 Outpatient Historical [facility] Pediatrics - [facility] [place] [facility] [address] [facility] [address] [address] Radhika Emmanuel MD NO ADDRESS ON FILE Social History Tobacco Use Types Packs/Day Years Used Date Smoking Tobacco: Never Assessed Comments Unknown Sex and Gender Information Value Date Recorded Sex Assigned at Not on file Legal Sex Female 2:53 AM INSTRUCTIONAL ASSISTANT Gender Identity Not on file Sexual Orientation Not on file documented as of this encounter Plan of Treatment Not on file documented as of this encounter Visit Diagnoses Not on filedocumented in this encounter
--- OUTSIDE RECORDS SUMMARY | 2025-03-15 12:14 | XMS_ITS | Clinical Summary ---
Author Organization [facility] Address [address] [place] [address] Care Team Providers Care Gis Analyst Developer Name Role Phone None, Physician Primary Care Provider Unavailabl e Source Comments [facility],non-owned Affiliates and Associated Physician Practices is amultiple site organization consisting of ambulatory clinics and hospital sitesin [place] and [place]. This disclosure is being madepursuant to the Care Everywhere program and may not contain all information available regarding this patient. Last updated 18.[facility] [employer] Allergies Active Allergy Reactions Criticality Noted Date [...] as an outpatient with Dr. Lomas at [facility] Constipation, unspecified constipation type 01/03 Assessment & [...] 09/17/2018 Assessment & Plan (09/17/2018 8:55 PM CHIP BIN CONVEYOR TENDER): 17 y.o. F with DMDD, Bipolar disorder [...] F/u with [facility] on Saturday Jade, Fruit Press Operator at [facility] ([phone]) Counseling regarding goals of care 01/28/2012 Overview [...] weeks. If unable to transfer to [facility] directly will send patient home [...] Overview (03/26/2012): Followed by Dr. Nilsa Rivera @[phone], ALT# [phone]. Spoken to during the 01/24 admission to [...] until a bed is available at [facility]. 03/24/[address] Nilsa Rivera @[phone], ALT# [phone], Psychiatrist taking care of Mae. She informed [...] bowel movements. Social/Behavioral for placement at [facility] was explored but no bed was available. [...] on file Legal Sex Female 5:44 AM CHIP BIN CONVEYOR TENDER Gender Identity Not on file Sexual Orientation [...] patient's age to complete this topic [place] [address] [address] [place] [id number] [facility] Member Subscriber Plan / Payer (Ef fective 2019-Present) Name:Mae Frances Relation to Subscriber:Self Name:Mae Frances Payer ID:[id number] (NAIC) Group ID:Not on file Type:Medicaid Managed Care Address: ATTN CLAIMS DEPARTMENT [place] [id number] Advance Directives * Full Code (Latest Code Status on File) Date Activated Date Inactivated Comments 01/15/2023 12:15 AM 01/16/2023 3:33 PM Care Teams Gis Analyst Developer Relationship Specialty Start Date End Date None, Physician [address] [place] [address] PCP - General 03/25/23
--- OUTSIDE RECORDS SUMMARY | 2025-03-15 12:14 | XMS_ITS | Encounter Summary ---
Author Organization [facility] Address [address] [place] [address] Care Team Providers Care Conveyor Installer Name Role Phone Unavailable Primary Care Provider Unavailabl e Encounter Details Date Type Department Care Team (Late st Contact Info) Description 2002 Outpatient Historical [facility] [id number] [place] [address] Cristel Nelson [address] [place] [address] Social History Tobacco Use Types Packs/Day Years Used Date Smoking Tobacco: Never Assessed Comments Unknown Sex and Gender Information Value Date Recorded Sex Assigned at Not on file Legal Sex Female 2:53 AM FISHER LINE Gender Identity Not on file Sexual Orientation Not on file documented as of this encounter Plan of Treatment Not on file documented as of this encounter Visit Diagnoses Not on filedocumented in this encounter
--- OUTSIDE RECORDS SUMMARY | 2025-03-15 12:14 | XMS_ITS | Encounter Summary ---
Author Organization [facility] Address [address] [place] [address] Care Team Providers Care Assistant Real Estate Manager Name Role Phone Unavailable Primary Care Provider Unavailabl e Encounter Details Date Type Department Care Team (Late st Contact Info) Description 2002 Outpatient Historical [facility] Pediatrics - [facility] [address] [address] Rodger Verma MD [id number] [place] [address] Social History Tobacco Use Types Packs/Day Years Used Date Smoking Tobacco: Never Assessed Comments Unknown Sex and Gender Information Value Date Recorded Sex Assigned at Not on file Legal Sex Female 2:53 AM WRAPPING CHECKER Gender Identity Not on file Sexual Orientation Not on file documented as of this encounter Plan of Treatment Not on file documented as of this encounter Visit Diagnoses Not on filedocumented in this encounter
[2025-03-15] MEDS: METOCLOPRAMIDE HCL INJ 10 MG/2 ML VIAL IV PUSH (12:17)
[2025-03-15] MEDS: SODIUM CHLORIDE 0.9% IV 1,000 ML 999 ML IV CONT ×2 (12:23→14:19)
[2025-03-15 12:29] LABS: Hematocrit 37.9 % (37.0-47.0); Hemoglobin 12.8 g/dL (12.0-15.0); Immature Granulocyte Percent A 0.5 % (0-0.5); Lymphocytes Absolute Auto 1.33 K/mm3 (0.9-3.2); Mean Corpuscular HGB Conc 33.8 g/dl (32-36); Mean Corpuscular Hemoglobin 27.4 pg (26-34); Mean Corpuscular Volume 81.0 fl (80-100); Nucleated Red Blood Cells Absolute Auto 0.000 K/mm3 (0.0-0.012); Nucleated Red Blood Cells Perc 0.0 % (0.0-0.2); Platelet Count Result 323 k/mm3 (150-375); Red Blood Count 4.68 M/mm3 (4.2-5.4); White Blood Count 12.0 K/mm3 (4.5-10.0)
[2025-03-15 12:30] VITALS: BP 106/70; PULSE 84; RESP 18; O2SAT 100
--- NOTE | 2025-03-15 12:31 | PC.NURSE ---
Pt attempted to give urine sample but was unable to at this time.
[2025-03-15 12:51] LABS: Alanine Aminotransferase 20 U/L (6-35); Albumin Level 4.3 g/dL (3.5-5.1); Alkaline Phosphatase 49 U/L (38-126); Anion Gap 11 mmol/L (4-12); Aspartate Amino Transferase 43 U/L (14-36); Bilirubin,Total 0.7 mg/dL (0.2-1.3); Blood Urea Nitrogen 8 mg/dL (7-17); Calcium 9.5 mg/dL (8.4-10.2); Carbon Dioxide 21 mmol/L (22-30); Chloride 104 mmol/L (98-107); Estimated CRCL calculation 89 ml/min; Estimated Glomerular Filt Rate > 60; Glucose 137 mg/dL (65-110); Lipase 56 U/L (23-300); Magnesium 1.5 mg/dL (1.6-2.3); Potassium 3.2 mmol/L (3.4-5.0); Sodium 136 mmol/L (137-145); Total Protein 7.6 g/dL (6.3-8.2)
[2025-03-15] MEDS: MAGNESIUM SULF 2 GM/WATER 50ML 2 GM/50 ML BAG IVPB (13:04)
[2025-03-15 13:40] LABS: Add Urine Microscopic? YES; Appearance Urine Clear (Clear); Glucose Urine UA Negative (Negative); Leukocyte Esterase Ur 1+ LEU/UL (Negative); Nitrate Urine Negative (Negative); Non Pathogenic Casts 0-2; Specific Grav Ur 1.016 (1.001-1.035)
[2025-03-15] MEDS: PROMETHAZINE HCL 25 MG/ML AMPUL 12.5 MG IV PUSH (13:45)
[2025-03-15] MEDS: KCL 20 MEQ/SW 100 ML 100 ML 50 MEQ IVPB (14:18)
--- NOTE | 2025-03-15 14:32 | ED_ITS ---
HPI - General Adult General Chief complaint: Nausea/Vomiting/Diarrhea Stated complaint: N/V, 14 weeks preg, hx of hyperemesis Time Seen by Provider: 03/15/25 12:08 History of Present Illness HPI narrative: Patient 24-year-old female who presents emergency department with chief complaint of nausea vomiting. Patient reports approximately 14 weeks reports she is followed by one of midwives with Dr. Rodriguez clinic. Related Data Home Medications ?Medication ?Instructions ?Recorded ?Confirmed ?Last Taken ?Type vitamins no.119-iron 1 tablet PO DAILY 03/30/24 11/12/24 09/19/24 History fumarate 29 mg-folic acid 1 mg tablet (Se- 19) sertraline 25 mg tablet 25 mg PO DAILY 09/19/24 11/12/24 09/19/24 History Allergies Allergy/AdvReac Type Severity Reaction Status Date / Time carbamazepine Allergy Intermediate Rash Verified 11/12/24 08:07 Review of Systems 2 Review of Systems: A 10 system review of systems was completed on the patient and is negative except for what is stated in the HPI. Nursing and ancillary documentation was reviewed. [facility] Past Medical History Medical History COVID-19 History of iron deficiency anemia Sinusitis chronic, frontal Sensory disorder Bipolar disorder Surgical History Surgical History History of tonsillectomy Family History Family History Other No significant family history Social History Social History Smoking status: Current every day smoker Tobacco type: e-cigarettes/vaping Additional smoking assessment comments: marijuana for nausea Alcohol intake: never Substance use: never Substance use type: marijuana Do You Feel Safe in your Home?: No Lack of Transportation: No Lack of Food: Never True Current Housing: I Have Housing Concerned About Future Housing: No Difficulty Paying Gas/Electric Bills: No Difficulty Paying for Meds: No Currently Unemployed: No Education: High School Diploma/GED Difficulty w/ Childcare or Family Care: No Living arrangements: with family Occupation/Education: student Gender identity (if verbalized by the patient): Female Spiritual care concerns: No Exam 2 Narrative: GENERAL: Well-appearing, well-nourished, and in no acute distress. HEAD: Normocephalic, atraumatic. EYES: PERRLA and EOMI. ENT: Nares clear, no rhinorrhea or epistaxis. Mucous membranes moist. NECK: Supple. CHEST: Clear to auscultation. No respiratory distress. HEART: Regular rate and rhythm. No murmur heard. Normal peripheral pulses. ABDOMEN: Soft, nontender, nondistended, normal active bowel sounds. EXTREMITIES: Normal range of motion. No edema. SKIN: Warm, dry, no rash. NEURO: No focal deficits. Alert and oriented x3. PSYCH: Normal mood and affect. Course Vital Signs Vital signs: Vital Signs Temperature 36.6 C 03/15/25 11:13 Pulse Rate 70 03/15/25 11:13 Respiratory Rate 16 03/15/25 11:13 Blood Pressure 107/68 03/15/25 11:13 Pulse Oximetry 100 03/15/25 11:13 Oxygen Delivery Room Air 03/15/25 11:13 Temperature 36.6 C 03/15/25 11:13 Pulse Rate 84 03/15/25 12:30 Respiratory Rate 18 03/15/25 12:30 Blood Pressure 106/70 03/15/25 12:30 Pulse Oximetry 100 03/15/25 12:30 Oxygen Delivery Room Air 03/15/25 11:13 Medical Decision Making [facility] Narrative Medical decision making narrative: Differential diagnosis includes hyperemesis gravidarum, Laboratory studies were obtained showed white count 12.0 electrolytes showed a potassium of 3.2 a magnesium of 1.5 urinalysis showed 2+ ketones 11-20 white blood cells 1+ leukocyte esterase Patient received 2 L of normal saline boluses a dose of Reglan a dose of been a grand and received IV potassium and IV magnesium Patient was hydrated attempted to do p.o. challenge without success the case was discussed with Dr. Koenig who graciously accepted the patient to be admitted for observation on the labor and delivery service After discussing with Dr. Koenig in the patient was accepted to labor and delivery service the patient decided that she was starting to feel better and did not want to stay in the hospital patient was given a Phenergan suppository prescription she was also given a prescription for Keflex as she did have a mild urinary tract infection Vital Signs Vital Signs: Vital Signs Temperature 36.6 C 03/15/25 11:13 Pulse Rate 70 03/15/25 11:13 Respiratory Rate 16 03/15/25 11:13 Blood Pressure 107/68 03/15/25 11:13 Pulse Oximetry 100 03/15/25 11:13 Oxygen Delivery Room Air 03/15/25 11:13 Temperature 36.6 C 03/15/25 11:13 Pulse Rate 84 03/15/25 12:30 Respiratory Rate 18 03/15/25 12:30 Blood Pressure 106/70 03/15/25 12:30 Pulse Oximetry 100 03/15/25 12:30 Oxygen Delivery Room Air 03/15/25 11:13 Lab Data 03/15/25 12:20 03/15/25 12:20 Labs: Lab Results 03/15/25 03/15/25 Range/Units 12:20 13:31 WBC 12.0 H (4.5-10.0) K/mm3 RBC 4.68 (4.2-5.4) M/mm3 Hgb 12.8 (12.0-15.0) g/dL Hct 37.9 (37.0-47.0) % MCV 81.0 (80-100) fl MCH 27.4 (26-34) pg MCHC 33.8 (32-36) g/dl RDW 14.5 (11.5-14.5) % Plt Count 323 (150-375) k/mm3 MPV 10.3 (7.4-10.4) fl Immature Gran % (Auto) 0.5 (0-0.5) % Neut % (Auto) 85.8 H (45.5-73.1) % Lymph % (Auto) 11.1 L (18.3-44.2) % [place] % (Auto) 2.2 L (2.6-8.5) % Eos % (Auto) 0.1 (0-4.4) % Baso % (Auto) 0.3 (0.2-1.2) % Lymph # (Auto) 1.33 (0.9-3.2) K/mm3 [place] # (Auto) 0.3 (0.1-0.6) K/mm3 Eos # (Auto) 0.0 (0-0.3) K/mm3 Baso # (Auto) 0.0 (0.0-0.1) K/mm3 Abs Immat Gran (auto) 0.06 H (0.00-0.031) K/mm3 Absolute Neuts (auto) 10.3 H (1.3-6.7) K/mm3 Absolute Nucleated RBC 0.000 (0.0-0.012) K/mm3 Nucleated RBC % 0.0 (0.0-0.2) % Sodium 136 L (137-145) mmol/L Potassium 3.2 L (3.4-5.0) mmol/L Chloride 104 (98-107) mmol/L Carbon Dioxide 21 L (22-30) mmol/L Anion Gap 11 (4-12) mmol/L BUN 8 (7-17) mg/dL Creatinine 0.57 L (0.7-1.0) mg/dL Estim Creat Clear Calc 89 ml/min Estimated GFR > 60 (59 - ) Glucose 137 H (65-110) mg/dL Calcium 9.5 (8.4-10.2) mg/dL Magnesium 1.5 L (1.6-2.3) mg/dL Total Bilirubin 0.7 (0.2-1.3) mg/dL AST 43 H (14-36) U/L ALT 20 (6-35) U/L Alkaline Phosphatase 49 (38-126) U/L Total Protein 7.6 (6.3-8.2) g/dL Albumin 4.3 (3.5-5.1) g/dL Lipase 56 (23-300) U/L Urine Color Yellow (Yellow) Urine Appearance Clear (Clear) Urine pH 8.0 (5.0-9.0) Ur Specific [place] 1.016 (1.001-1.035) Urine Protein Trace (Negative) mg/dL Urine Glucose (UA) Negative (Negative) mg/dL Urine Ketones 2+ H (Negative) mg/dL Ur Blood (Man) 2+ H (Negative) Urine Nitrate Negative (Negative) Urine Bilirubin Negative (Negative) Urine Urobilinogen 0.2 (<2.0) mg/dL Leukocyte Esterase Rfl 1+ H (Negative) ROSALIE/UL Urine RBC 21-50 H (0-2) /hpf Urine WBC 11-20 H (0-3) /hpf Ur Squamous Epith Cells Moderate (Few) /hpf Urine Bacteria Rare /hpf Urine Casts 0-2 Discharge Plan Discharge Clinical Impression: Hyperemesis gravidarum, Abnormal urinalysis Patient Disposition: Still a Patient Condition: Stable Instructions: Hyperemesis Gravidarum (ED), Urinary Tract Infection in (ED) Patient Language: Turkmen Prescriptions: New promethazine 25 mg suppository 25 mg RECTAL Q6H PRN (Reason: nausea and vomiting) Qty: 12 0RF cephalexin 500 mg capsule 500 mg PO Q12H 7 Days Qty: 14 0RF No Action Se-Kwasi 19 29 mg iron- 1 mg tablet 1 tablet PO DAILY sertraline 25 mg tablet 25 mg PO DAILY metoclopramide HCl 5 mg tablet 5 mg PO Q8H PRN (Reason: nausea and vomiting) Qty: 10 0RF Follow-up/Referrals: Sakina Cantrell CNM [Primary Care Provider] - Time of Disposition: 16:22
--- NOTE | 2025-03-15 17:03 | PC.NURSE ---
Patient able to consume half a cup of ice chips and pudding without feeling nauseous. Patient states she has an apt with her OB next week and does not want to be admitted, she would rather go home. Patient is ambulatory, steady gate, no pain, no nausea or vomiting. MD notified of patient wanting to go home. Patient called her ride to pick her up from the hospital.
== END 2025-03-15 17:16 | disposition home or self-care (01) ==
PROVIDERS: Emergency Provider Emergency Medicine; PCP Advanced Practice Midwife
DX: O21.0 Mild hyperemesis gravidarum (principal); Z3A.14 14 weeks gestation of pregnancy
CPT/HCPCS: 36415; 80053; 81001; 83690; 83735; 85025; 96360; 96361; 96365; 96366; 96368; 96375; 99284; J1200; J2550; J2765; J3475; J3480; J7030

== ENCOUNTER 2025-03-15 20:29 | Emergency (ER) | payer BC, MEDICAID, SELFPAY ==
--- OUTSIDE RECORDS SUMMARY | 2025-03-15 20:31 | XMS_ITS | Encounter Summary ---
Author Organization [facility] Address [address] [place] [address] Care Team Providers Care Wardrobe Consultant Name Role Phone Unavailable Primary Care Provider Unavailabl e Encounter Details Date Type Department Care Team (Late st Contact Info) Description 2002 Outpatient Historical [facility] Pediatrics - [facility] [address] [address] Rodger Verma MD [id number] [place] [address] Social History Tobacco Use Types Packs/Day Years Used Date Smoking Tobacco: Never Assessed Comments Unknown Sex and Gender Information Value Date Recorded Sex Assigned at Not on file Legal Sex Female 2:53 AM DIRECTOR CARDIOVASCULAR Gender Identity Not on file Sexual Orientation Not on file documented as of this encounter Plan of Treatment Not on file documented as of this encounter Visit Diagnoses Not on filedocumented in this encounter
--- OUTSIDE RECORDS SUMMARY | 2025-03-15 20:31 | XMS_ITS | Encounter Summary ---
Author Organization [facility] Address [address] [place] [address] Care Team Providers Care Car Shagger Name Role Phone Unavailable Primary Care Provider Unavailabl e Encounter Details Date Type Department Care Team (Latest Contact Info) Description 2002 Outpatient Historical [facility] Radhika Bojorquez MD NO ADDRESS ON FILE CONGENITAL HYPOTHYROIDSM (Primary Dx) Social History Tobacco Use Types Packs/Day Years Used Date Smoking Tobacco: Never Assessed Comments Unknown Sex and Gender Information Value Date Recorded Sex Assigned at Not on file Legal Sex Female 2:53 AM HYDROGENATION OPERATOR Gender Identity Not on file Sexual Orientation Not on file documented as of this encounter Plan of Treatment Not on file documented as of this encounter Visit Diagnoses Diagnosis Congenital hypothyroidism- Primary documented in this encounter
--- OUTSIDE RECORDS SUMMARY | 2025-03-15 20:31 | XMS_ITS | Clinical Summary ---
Author Organization [facility] Address [address] [place] [address] Care Team Providers Care Business Test Analyst Name Role Phone No, Physician Primary Care [...] on file Legal Sex Female 7:24 PM CEMETERY VAULT INSTALLER Gender Identity Not on file Sexual Orientation [...] 10/28/2003 HPV Vaccines Completed 05/28/2018, 08/22/2016 Insurance [facility] Care Teams Business Test Analyst Relationship Specialty Start Date End Date No, Physician PCP - General 04/16/24
--- OUTSIDE RECORDS SUMMARY | 2025-03-15 20:31 | XMS_ITS | Encounter Summary ---
Author Organization [facility] Address [address] [facility] Attn: [place] [address] Care Team Providers Care Merchant Mill Utility Worker Name Role Phone Unavailable Primary Care Provider Unavailabl e Encounter Details Date Type Department Care Team (Late st Contact Info) Description 2002 Inpatient Historical [place], Rodger Carter MD [address] [facility] [id number] [place] [address] Sakina Stoddard MD [address] [facility] [address] [place] [address] SINGL BORN IN HOSP-NO C/DELIVERY (Primary Dx) Social History Tobacco Use Types Packs/Day Years Used Date Smoking Tobacco: Never Assessed Comments Unknown Sex and Gender Information Value Date Recorded Sex Assigned at Not on file Legal Sex Female 2:53 AM AFFILIATE MANAGER Gender Identity Not on file Sexual Orientation Not on file documented as of this encounter Plan of Treatment Not on file documented as of this encounter Visit Diagnoses Diagnosis Single liveborn, born in hospital, delivered without mention of delivery- Primary documented in this encounter
--- OUTSIDE RECORDS SUMMARY | 2025-03-15 20:31 | XMS_ITS | Clinical Summary ---
Author Organization [facility] Address [address] [place] [address] Phone Care Team Providers Care Preschool Assistant Principal Name Role Phone Unavailable Primary Care Provider [...] on file Legal Sex Female 2:53 AM AIRCRAFT FUELER Gender Identity Not on file Sexual Orientation [...]
--- OUTSIDE RECORDS SUMMARY | 2025-03-15 20:31 | XMS_ITS | Clinical Summary ---
Author Organization [facility] Address [address] [place] [address] Care Team Providers Care Intermediate Teacher Name Role Phone None, Physician Primary Care Provider Unavailabl e Source Comments [facility],non-owned Affiliates and Associated Physician Practices is amultiple site organization consisting of ambulatory clinics and hospital sitesin [place], [place], [place] and [place]. This disclosure is being madepursuant to the Care Everywhere program and may not contain all information available regarding this patient. Last updated 18.[facility] [employer] Allergies Active Allergy Reactions Criticality Noted Date [...] as an outpatient with Dr. Lomas at [facility] Constipation, unspecified constipation type 01/03 Assessment [...] 09/17/2018 Assessment & Plan (09/17/2018 8:55 PM PUBLIC RELATIONS PLAYER): 17 y.o. F with DMDD, Bipolar disorder [...] F/u with [facility] on Saturday Jade, Judicial Law Clerk at [facility] ([phone]) Counseling regarding goals of care 01/28/2012 Overview [...] several weeks. If unable to transfer to [facility] directly will send patient home with [...] Overview (03/26/2012): Followed by Dr. Nilsa Rivera @[phone], ALT# [phone]. Spoken to during the 01/24 admission to [...] therapist until a bed is available at [facility]. 03/24/[address] Nilsa Rivera @[phone], ALT# [phone], Psychiatrist taking care of Mae. She informed [...] bloody bowel movements. Social/Behavioral for placement at [facility] was explored but no bed was [...] on file Legal Sex Female 5:44 AM PUBLIC RELATIONS PLAYER Gender Identity Not on file Sexual Orientation [...] patient's age to complete this topic [place] [address] [address] [place] [id number] [facility] Member Subscriber Plan / Payer (Ef fective 2019-Present) Name:Mae Frances Relation to Subscriber:Self Name:Mae Frances Payer ID:[id number] (NAIC) Group ID:Not on file Type:Medicaid Managed Care Address: ATTN CLAIMS DEPARTMENT [place] [id number] Advance Directives * Full Code (Latest Code Status on File) Date Activated Date Inactivated Comments 01/15/2023 12:15 AM 01/16/2023 3:33 PM Care Teams Intermediate Teacher Relationship Specialty Start Date End Date None, Physician [address] [place] [address] PCP - General 03/25/23
--- OUTSIDE RECORDS SUMMARY | 2025-03-15 20:31 | XMS_ITS | Encounter Summary ---
Author Organization [facility] Address [address] [place] [address] Care Team Providers Care Computational Physicist Name Role Phone Unavailable Primary Care Provider Unavailabl e Encounter Details Date Type Department Care Team (Late st Contact Info) Description 2002 Outpatient Historical [facility] Pediatrics - [facility] [address] [facility] [address] [address] Radhika Emmanuel MD NO ADDRESS ON FILE Social History Tobacco Use Types Packs/Day Years Used Date Smoking Tobacco: Never Assessed Comments Unknown Sex and Gender Information Value Date Recorded Sex Assigned at Not on file Legal Sex Female 2:53 AM MILD DISABILITIES TEACHER Gender Identity Not on file Sexual Orientation Not on file documented as of this encounter Plan of Treatment Not on file documented as of this encounter Visit Diagnoses Not on filedocumented in this encounter
--- OUTSIDE RECORDS SUMMARY | 2025-03-15 20:31 | XMS_ITS | Encounter Summary ---
Author Organization [facility] Address [address] [place] [address] Care Team Providers Care Train Attendant Name Role Phone Unavailable Primary Care Provider Unavailabl e Encounter Details Date Type Department Care Team (Late st Contact Info) Description 2002 Outpatient Historical [facility] Hearing Services [id number] [place] [address] Cristel Nelson [address] [place] [address] Social History Tobacco Use Types Packs/Day Years Used Date Smoking Tobacco: Never Assessed Comments Unknown Sex and Gender Information Value Date Recorded Sex Assigned at Not on file Legal Sex Female 2:53 AM ASSISTED LIVING NURSING DIRECTOR Gender Identity Not on file Sexual Orientation Not on file documented as of this encounter Plan of Treatment Not on file documented as of this encounter Visit Diagnoses Not on filedocumented in this encounter
[2025-03-15 20:44] VITALS: BP 112/73; PULSE 89; RESP 17; TEMP 36.5; O2SAT 100
[2025-03-15 22:34] VITALS: BP 107/61; PULSE 80; RESP 18; O2SAT 99
--- OUTSIDE RECORDS SUMMARY | 2025-03-15 22:45 | XMS_ITS | Encounter Summary ---
Author Organization [facility] Address [address] [place] [address] Care Team Providers Care Net Front End Developer Name Role Phone Unavailable Primary Care Provider Unavailabl e Encounter Details Date Type Department Care Team (Late st Contact Info) Description 2002 Outpatient Historical [facility] - [facility] [address] [address] Radhika Emmanuel MD NO ADDRESS ON FILE Social History Tobacco Use Types Packs/Day Years Used Date Smoking Tobacco: Never Assessed Comments Unknown Sex and Gender Information Value Date Recorded Sex Assigned at Not on file Legal Sex Female 2:53 AM TRANSPORTATION JOB TITLES Gender Identity Not on file Sexual Orientation Not on file documented as of this encounter Plan of Treatment Not on file documented as of this encounter Visit Diagnoses Not on filedocumented in this encounter
--- OUTSIDE RECORDS SUMMARY | 2025-03-15 22:45 | XMS_ITS | Clinical Summary ---
Author Organization [facility] Address [address] [place] [address] Care Team Providers Care Logistics/Shipper Name Role Phone None, Physician Primary Care Provider Unavailabl e Source Comments [facility],non-owned Affiliates and Associated Physician Practices is amultiple site organization consisting of ambulatory clinics and hospital sitesin [place], [place], [place] and [place]. This disclosure is being madepursuant to the Care Everywhere program and may not contain all information available regarding this patient. Last updated 18.[facility] Targeter App Allergies Active Allergy Reactions Criticality Noted Date [...] as an outpatient with Dr. Lomas at [facility] Constipation, unspecified constipation type 01/03 Assessment [...] 09/17/2018 Assessment & Plan (09/17/2018 8:55 PM DIRECTOR OF CATERING SALES): 17 y.o. F with DMDD, Bipolar disorder [...] F/u with [facility] on Saturday Jade, Auto Salvage Worker at [employer] ([phone]) Counseling regarding goals of care 01/28/2012 Overview [...] several weeks. If unable to transfer to [facility] directly will send patient home with close outpatient follow-up with current Psychiatrist, psychiatry, as well as behavior charts and home schedule. Mother stated understanding and voiced agreement. 01/31- No bed available for months at [facility], pending biopsy results, will send patient home with daily bowel regimen, diary, and close out patient follow-up. Behavior disorder 01/25/2012 Overview (03/26/2012): Followed by Dr. Nilsa Rivera @[phone], ALT# [phone]. Spoken to during the 01/24 admission to [...] therapist until a bed is available at [facility]. 03/24/[address] Nilsa Rivera @[phone], ALT# [phone], Psychiatrist taking care of Mae. She informed [...] bloody bowel movements. Social/Behavioral for placement at [facility] was explored but no bed was available. [...] on file Legal Sex Female 5:44 AM DIRECTOR OF CATERING SALES Gender Identity Not on file Sexual [...] patient's age to complete this topic Insurance [place] [address] [place] [id number] [facility] Member Subscriber Plan / Payer (Ef fective 2019-Present) Name:Mae Frances Relation to Subscriber:Self Name:Mae Frances Payer ID:[id number] (NAIC) Group ID:Not on file Type:Medicaid Managed Care Address: ATTN CLAIMS DEPARTMENT [place] [id number] Advance Directives * Full Code (Latest Code Status on File) Date Activated Date Inactivated Comments 01/15/2023 12:15 AM 01/16/2023 3:33 PM Care Teams Logistics/Shipper Relationship Specialty Start Date End Date None, Physician [address] [place] [address] PCP - General 03/25/23
--- OUTSIDE RECORDS SUMMARY | 2025-03-15 22:45 | XMS_ITS | Encounter Summary ---
Author Organization [facility] Address [address] Attn: Epic [place] [address] Care Team Providers Care Police Clerk Name Role Phone Unavailable Primary Care Provider Unavailabl e Encounter Details Date Type Department Care Team (Late st Contact Info) Description 2002 Inpatient Historical Sheldon, Rodger Carter MD [address] [facility] [address] [id number] [place] [address] Sakina Stoddard MD [address] [facility] [address] [place] [address] SINGL BORN IN HOSP-NO C/DELIVERY (Primary Dx) Social History Tobacco Use Types Packs/Day Years Used Date Smoking Tobacco: Never Assessed Comments Unknown Sex and Gender Information Value Date Recorded Sex Assigned at Not on file Legal Sex Female 2:53 AM HOT MIX OPERATOR Gender Identity Not on file Sexual Orientation Not on file documented as of this encounter Plan of Treatment Not on file documented as of this encounter Visit Diagnoses Diagnosis Single liveborn, born in hospital, delivered without mention of delivery- Primary documented in this encounter
--- OUTSIDE RECORDS SUMMARY | 2025-03-15 22:45 | XMS_ITS | Clinical Summary ---
Author Organization [facility] Address [address] [place] [address] Care Team Providers Care Cable Repairer Name Role Phone No, Physician Primary Care Provider [phone] Allergies Active Allergy Reactions Criticality Noted Date [...] on file Legal Sex Female 7:24 PM DEPUTY DIRECTOR OF NURSING Gender Identity Not on file Sexual Orientation [...] 10/28/2003 HPV Vaccines Completed 05/28/2018, 08/22/2016 Insurance [facility] Care Teams Cable Repairer Relationship Specialty Start Date End Date No, Physician PCP - General 04/16/24
--- OUTSIDE RECORDS SUMMARY | 2025-03-15 22:45 | XMS_ITS | Encounter Summary ---
Author Organization [facility] Address 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
--- OUTSIDE RECORDS SUMMARY | 2025-03-15 22:45 | XMS_ITS | Clinical Summary ---
Author Organization [facility] Address [address] [place] [address] Phone Care Team Providers Care Clinical Assessment Manager Name Role Phone Unavailable Primary Care [...] on file Legal Sex Female 2:53 AM TUBE ROOM SUPERVISOR Gender Identity Not on file Sexual Orientation [...]
--- OUTSIDE RECORDS SUMMARY | 2025-03-15 22:45 | XMS_ITS | Encounter Summary ---
Author Organization [facility] Address [address] [place] [address] Care Team Providers Care Firer Retort Name Role Phone Unavailable Primary Care Provider Unavailabl e Encounter Details Date Type Department Care Team (Late st Contact Info) Description 2002 Outpatient Historical [facility] - [facility] [address] [address] Rodger Verma MD [id number] [place] [address] Social History Tobacco Use Types Packs/Day Years Used Date Smoking Tobacco: Never Assessed Comments Unknown Sex and Gender Information Value Date Recorded Sex Assigned at Not on file Legal Sex Female 2:53 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
--- OUTSIDE RECORDS SUMMARY | 2025-03-15 22:45 | XMS_ITS | Encounter Summary ---
Author Organization [facility] Address 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
--- NOTE | 2025-03-15 23:15 | PC.NURSE ---
Report to Susana REECE
[2025-03-15] MEDS: SODIUM CHLORIDE 0.9% IV 1,000 ML 999 ML IV CONT (23:23)
[2025-03-15 23:25] VITALS: BP 108/60; PULSE 92; RESP 16; TEMP 36.9; O2SAT 100
[2025-03-15 23:28] LABS: Hematocrit 31.6 % (37.0-47.0); Hemoglobin 10.7 g/dL (12.0-15.0); Immature Granulocyte Percent A 0.4 % (0-0.5); Lymphocytes Absolute Auto 0.95 K/mm3 (0.9-3.2); Mean Corpuscular HGB Conc 33.9 g/dl (32-36); Mean Corpuscular Hemoglobin 27.3 pg (26-34); Mean Corpuscular Volume 80.6 fl (80-100); Nucleated Red Blood Cells Absolute Auto 0.000 K/mm3 (0.0-0.012); Nucleated Red Blood Cells Perc 0.0 % (0.0-0.2); Platelet Count Result 278 k/mm3 (150-375); Red Blood Count 3.92 M/mm3 (4.2-5.4); White Blood Count 10.4 K/mm3 (4.5-10.0)
--- NOTE | 2025-03-15 23:38 | ED_ITS ---
HPI - Nausea/Vomiting/Diarrhea General Chief complaint: Nausea/Vomiting/Diarrhea Stated complaint: vomiting - was just here and D/C Time Seen by Provider: 03/15/25 22:33 Source: patient and old records reviewed Mode of arrival: ambulatory Limitations: no limitations History of Present Illness HPI Narrative: Patient is a 24-year-old female who presents the ED with report of nausea, vomiting. Patient is and currently approximately 7 weeks gestation. Has had issues with nausea vomiting throughout her . Sees Sakina Cantrell with [facility] Was seen in the ED earlier today, given fluids, nausea medicine, electrolyte replacement. She states she failed her p.o. challenge and was offered admission to the hospital, however decided she wanted to try going home. Patient states upon returning home, she had recurrent nausea and vomiting, lightheadedness. She then prompted here for further evaluation. She did have several episodes of vomiting in the ED waiting room, but does feel slightly improved currently. She denies abdominal pain, vaginal bleeding. Related Data Home Medications ?Medication ?Instructions ?Recorded ?Confirmed ?Last Taken ?Type vitamins no.119-iron 1 tablet PO DAILY 03/30/24 11/12/24 09/19/24 History fumarate 29 mg-folic acid 1 mg tablet (Se- 19) sertraline 25 mg tablet 25 mg PO DAILY 09/19/24 11/12/24 09/19/24 History Allergies Allergy/AdvReac Type Severity Reaction Status Date / Time carbamazepine Allergy Intermediate Rash Verified 03/15/25 20:48 Review of Systems 2 Review of Systems: All systems reviewed & are unremarkable except as noted in HPI. All systems reviewed & are unremarkable except as noted in HPI and below PMFSH Past Medical History Medical History COVID-19 History of iron deficiency anemia Sinusitis chronic, frontal Sensory disorder Bipolar disorder Surgical History Surgical History History of tonsillectomy Family History Family History Other No significant family history Social History Social History Smoking status: Current every day smoker Tobacco type: e-cigarettes/vaping Additional smoking assessment comments: marijuana for nausea Alcohol intake: never Substance use: never Substance use type: marijuana Do You Feel Safe in your Home?: No Lack of Transportation: No Lack of Food: Never True Current Housing: I Have Housing Concerned About Future Housing: No Difficulty Paying Gas/Electric Bills: No Difficulty Paying for Meds: No Currently Unemployed: No Education: High School Diploma/GED Difficulty w/ Childcare or Family Care: No Living arrangements: with family Occupation/Education: student Gender identity (if verbalized by the patient): Female Spiritual care concerns: No Exam 2 Narrative: GENERAL: Well appearing, thin, non-toxic, in no acute distress. HEAD: Normocephalic, atraumatic. RESPIRATORY: Airway patent, respirations nonlabored. Clear to auscultation bilaterally, no rales, rhonchi, wheezing. CARDIOVASCULAR: Regular rate and rhythm without murmurs, rubs, or gallops. ABDOMINAL: Soft, no tenderness, nondistended. Normoactive BS. MUSCULOSKELETAL: Moves all extremities. No gross deformities. SKIN: Warm, dry, normal color. NEURO: A&O X3. Speech clear. Cranial nerves II-XII grossly intact. Steady gait. No ataxic movements. PSYCHIATRIC: Appropriate mood and affect. Normal interaction. Course Vital Signs Vital signs: Vital Signs Temperature 97.7 F 03/15/25 20:44 Pulse Rate 89 03/15/25 20:44 Respiratory Rate 17 03/15/25 20:44 Blood Pressure 112/73 03/15/25 20:44 Pulse Oximetry 100 03/15/25 20:44 Oxygen Delivery Room Air 03/15/25 20:44 Temperature 98.4 F 03/15/25 23:25 Pulse Rate 79 03/16/25 00:22 Respiratory Rate 16 03/16/25 00:22 Blood Pressure 108/62 03/16/25 00:22 Pulse Oximetry 100 03/16/25 00:22 Oxygen Delivery Room Air 03/15/25 20:44 MDM - Nausea/Vomiting/Diarrhea MDM Narrative Medical decision making narrative: Patient presented to ED with persistent nausea, vomiting, currently 7 weeks gestation. Was seen in the ED earlier today and offered admission, but ultimately decided to go home. Vital signs are stable upon arrival. Patient does report feeling slightly improved currently upon my evaluation. Will initiate fluids, but patient declined nausea medication at this time. Wants to attempt p.o. challenge. Patient denying any abdominal pain or vaginal bleeding at this time. Repeat laboratory studies still with normal hypokalemia at 3.3. Bicarb low at 16. No anion gap. Mag within normal range. Patient was able to drink an entire glass of water, eat applesauce and an entire container of pudding. She is feeling much improved. She would like to try going home again. She does not want to be admitted at this time. She does feel comfortable going home. She was prescribed Phenergan suppositories earlier today, but has not had a chance to pick these up for the pharmacy yet. Advised close follow-up with OBGYN. Discussed bland/brat diet. Given strict return precautions. She agrees with plan. Discharged in stable condition. Medical Records Attestation: I reviewed the patient's medical records. Lab Data Attestation: I reviewed the patient's lab results. 03/15/25 23:20 03/15/25 23:20 Labs: Lab Results 03/15/25 Range/Units 23:20 WBC 10.4 H (4.5-10.0) K/mm3 RBC 3.92 L (4.2-5.4) M/mm3 Hgb 10.7 L (12.0-15.0) g/dL Hct 31.6 L (37.0-47.0) % MCV 80.6 (80-100) fl MCH 27.3 (26-34) pg MCHC 33.9 (32-36) g/dl RDW 14.6 H (11.5-14.5) % Plt Count 278 (150-375) k/mm3 MPV 10.6 H (7.4-10.4) fl Immature Gran % (Auto) 0.4 (0-0.5) % Neut % (Auto) 88.5 H (45.5-73.1) % Lymph % (Auto) 9.1 L (18.3-44.2) % Lewis % (Auto) 1.9 L (2.6-8.5) % Eos % (Auto) 0.0 (0-4.4) % Baso % (Auto) 0.1 L (0.2-1.2) % Lymph # (Auto) 0.95 (0.9-3.2) K/mm3 Lewis # (Auto) 0.2 (0.1-0.6) K/mm3 Eos # (Auto) 0.0 (0-0.3) K/mm3 Baso # (Auto) 0.0 (0.0-0.1) K/mm3 Abs Immat Gran (auto) 0.04 H (0.00-0.031) K/mm3 Absolute Neuts (auto) 9.2 H (1.3-6.7) K/mm3 Absolute Nucleated RBC 0.000 (0.0-0.012) K/mm3 Nucleated RBC % 0.0 (0.0-0.2) % Sodium 134 L (137-145) mmol/L Potassium 3.3 L (3.4-5.0) mmol/L Chloride 108 H (98-107) mmol/L Carbon Dioxide 16 L (22-30) mmol/L Anion Gap 10 (4-12) mmol/L BUN 4 L (7-17) mg/dL Creatinine 0.50 L (0.7-1.0) mg/dL Estim Creat Clear Calc 116 ml/min Estimated GFR > 60 (59 - ) Glucose 99 (65-110) mg/dL Calcium 8.3 L (8.4-10.2) mg/dL Magnesium 1.9 (1.6-2.3) mg/dL Total Bilirubin 0.5 (0.2-1.3) mg/dL AST 27 (14-36) U/L ALT 14 (6-35) U/L Alkaline Phosphatase 44 (38-126) U/L Total Protein 6.6 (6.3-8.2) g/dL Albumin 3.7 (3.5-5.1) g/dL Discharge Plan Discharge Clinical Impression: 7 weeks gestation of Nausea and vomiting Qualifiers: Vomiting type: unspecified Qualified Code(s): R11.2 - Nausea with vomiting, unspecified Patient Disposition: Home Condition: Stable Instructions: Antibiotic Form, Dehydration (ED), Clear Liquid Diet (ED), Acute Nausea and Vomiting (ED) Additional Instructions: Utilize Phenergan suppository as needed for further nausea/vomiting. Increase fluid intake. Recommend electrolyte rich fluids, gatorade, pedialyte, body armour. Recommend clear liquids or bland diet until symptoms improve, such as bananas, rice, applesauce, toast, or crackers. Follow up with your OBGYN for further evaluation. Return to the ED if you experience worsening or severe symptoms, unable to keep down food or drink, severe pain, fevers, vaginal bleeding, or any other symptoms of concern. Patient Language: Maltese Prescriptions: No Action Se- 19 29 mg iron- 1 mg tablet 1 tablet PO DAILY sertraline 25 mg tablet 25 mg PO DAILY promethazine 25 mg suppository 25 mg RECTAL Q6H PRN (Reason: nausea and vomiting) Qty: 12 0RF cephalexin 500 mg capsule 500 mg PO Q12H 7 Days Qty: 14 0RF metoclopramide HCl 5 mg tablet 5 mg PO Q8H PRN (Reason: nausea and vomiting) Qty: 10 0RF Follow-up/Referrals: Sakina Cantrell CNM [Primary Care Provider] - Time of Disposition: 00:11
[2025-03-15 23:39] LABS: Alanine Aminotransferase 14 U/L (6-35); Albumin Level 3.7 g/dL (3.5-5.1); Alkaline Phosphatase 44 U/L (38-126); Anion Gap 10 mmol/L (4-12); Aspartate Amino Transferase 27 U/L (14-36); Bilirubin,Total 0.5 mg/dL (0.2-1.3); Blood Urea Nitrogen 4 mg/dL (7-17); Calcium 8.3 mg/dL (8.4-10.2); Carbon Dioxide 16 mmol/L (22-30); Chloride 108 mmol/L (98-107); Estimated CRCL calculation 116 ml/min; Estimated Glomerular Filt Rate > 60; Glucose 99 mg/dL (65-110); Magnesium 1.9 mg/dL (1.6-2.3); Potassium 3.3 mmol/L (3.4-5.0); Sodium 134 mmol/L (137-145); Total Protein 6.6 g/dL (6.3-8.2)
--- NOTE | 2025-03-15 23:50 | PC.NURSE ---
Pt tolerated PO challange, no n/v reported.
--- NOTE | 2025-03-15 23:54 | PC.NURSE ---
pt provided with apple sauce, and water
--- NOTE | 2025-03-16 00:09 | PC.NURSE ---
Pt ambulatory to bathroom with even and steady gait. Pt denies n/v at this time, appears in NAD.
[2025-03-16 00:22] VITALS: BP 108/62; PULSE 79; RESP 16; O2SAT 100
== END 2025-03-16 00:22 | disposition home or self-care (01) ==
PROVIDERS: Emergency Provider Physician Assistant; PCP Advanced Practice Midwife
DX: O21.0 Mild hyperemesis gravidarum (principal); Z3A.01 Less than 8 weeks gestation of pregnancy
CPT/HCPCS: 36415; 80053; 83735; 85025; 96360; 99283; J7030

== ENCOUNTER 2025-03-25 09:28 | Emergency (ER) | payer BC, MEDICAID, SELFPAY ==
--- NOTE | ~2025-03-25 | US_ITS ---
EXAMINATION: US OB limited DATE: 03/25/2025 12:03 INDICATION: Back pain, nausea and vomiting during early second trimester of TECHNIQUE: Real-time ultrasound of the pelvis was performed. The interpreting radiologist was not present for the study. COMPARISON: None. FINDINGS: There is a single living fetus in breech presentation. The placenta is left posterior and does not appear low-lying. heart rate is 145 beats per minute (bpm). Amniotic fluid volume is subjectively normal. [place]-rump length measures 10.9 cm which correlates to an estimated gestational age of 16 weeks and 6 days. Cervical length measures at least 2.7 cm with no funneling although this appears underestimated. IMPRESSION: 1. Single living fetus in reach presentation with heart rate of 145 bpm. 2. 2. Gestational age by ultrasound of 16 weeks 6 day(s) +/- 1 week and 4 days day(s) with ultrasound estimated date of delivery (KB) of 09/03/2025. Reviewed, dictated and finalized at location A. IMPRESSION: 1. Single living fetus in reach presentation with heart rate of 145 bpm. 2. 2. Gestational age by ultrasound of 16 weeks 6 day(s) +/- 1 week and 4 day s day(s) with ultrasound estimated date of delivery (KB) of 09/03/2025.
[2025-03-25 09:32] VITALS: BP 122/104; PULSE 70; RESP 20; TEMP 37; O2SAT 100
--- NOTE | 2025-03-25 09:37 | ED.NAVMDI ---
HPI - Nausea/Vomiting/Diarrhea General Chief complaint: Nausea/Vomiting/Diarrhea Stated complaint: n/v- Time Seen by Provider: 03/25/25 09:32 Source: patient Mode of arrival: ambulatory Limitations: no limitations History of Present Illness HPI Narrative: Patient is a 24 y/o female who presents to the ED with c/o N/V. Patient reports she is currently around 15 weeks gestation. Sees Sakina Cantrell with [facility]. Reports having persistent nausea and vomiting since this morning. Unable to keep down food or drink. Has been seen here recently for similar symptoms. Has had issues with nausea and vomiting throughout previous pregnancies. Reports diffuse abdominal pain. Denies vaginal bleeding. Denies diarrhea, fevers. Does note that she has been smoking marijuana to help with the nausea. Related Data Home Medications ?Medication ?Instructions ?Recorded ?Confirmed ?Last Taken ?Type vitamins no.119-iron 1 tablet PO DAILY 03/30/24 11/12/24 09/19/24 History fumarate 29 mg-folic acid 1 mg tablet (Se- 19) sertraline 25 mg tablet 25 mg PO DAILY 09/19/24 11/12/24 09/19/24 History Allergies Allergy/AdvReac Type Severity Reaction Status Date / Time carbamazepine Allergy Intermediate Rash Verified 03/25/25 09:41 Review of Systems Review of Systems: All systems reviewed & are unremarkable except as noted in HPI. All systems reviewed & are unremarkable except as noted in HPI and below PMFSH Past Medical History Medical History COVID-19 History of iron deficiency anemia Sinusitis chronic, frontal Sensory disorder Bipolar disorder Surgical History Surgical History History of tonsillectomy Family History Family History Other No significant family history Social History Social History Smoking status: Current every day smoker Tobacco type: e-cigarettes/vaping Additional smoking assessment comments: marijuana for nausea Alcohol intake: never Substance use: never Substance use type: marijuana Do You Feel Safe in your Home?: No Lack of Transportation: No Lack of Food: Never True Current Housing: I Have Housing Concerned About Future Housing: No Difficulty Paying Gas/Electric Bills: No Difficulty Paying for Meds: No Currently Unemployed: No Education: High School Diploma/GED Difficulty w/ Childcare or Family Care: No Living arrangements: with family Occupation/Education: student Gender identity (if verbalized by the patient): Female Spiritual care concerns: No Exam Narrative: GENERAL: Mildly ill-appearing, thin, non-toxic, in no acute distress. HEAD: Normocephalic, atraumatic. RESPIRATORY: Airway patent, respirations nonlabored. Clear to auscultation bilaterally, no rales, rhonchi, wheezing. CARDIOVASCULAR: Regular rate and rhythm without murmurs, rubs, or gallops. ABDOMINAL: Soft, diffuse tenderness throughout abdomen, no significant focal tenderness, nondistended. Normoactive BS. MUSCULOSKELETAL: Moves all extremities. No gross deformities. SKIN: Warm, dry, normal color. NEURO: A&O X3. Speech clear. No ataxic movements. PSYCHIATRIC: Appropriate mood and affect. Normal interaction. Course Vital Signs Vital signs: Vital Signs Temperature 98.6 F 03/25/25 09:32 Pulse Rate 70 03/25/25 09:32 Respiratory Rate 20 03/25/25 09:32 Blood Pressure 122/104 H 03/25/25 09:32 Pulse Oximetry 100 03/25/25 09:32 Oxygen Delivery Room Air 03/25/25 09:32 Temperature 98.6 F 03/25/25 09:32 Pulse Rate 71 03/25/25 11:07 Respiratory Rate 18 03/25/25 11:07 Blood Pressure 100/62 03/25/25 11:07 Pulse Oximetry 100 03/25/25 11:07 Oxygen Delivery Room Air 03/25/25 09:32 MDM - Nausea/Vomiting/Diarrhea MDM Narrative Medical decision making narrative: Patient presented to ED with nausea, vomiting, currently 15 weeks gestation. Has been seen in our ED multiple times for similar symptoms. Vital signs are stable upon arrival. Patient is afebrile here. Cbc with white blood cell count of 11.4. H&H is stable. CMP with potassium 3.3, will replace. Mag 1.4. Given IV replacement. Bicarb 20. Otherwise stable electrolytes. Stable kidney function. Normal LFTs and lipase. UA w/o evidence of infection. UDS positive for cannabinoids. Ob ultrasound showing live fetus, good heart tones, showing gestational age around 16 weeks. Patient given fluids, Reglan, Benadryl, Zofran. She declined Compazine. On re-evaluation, she is feeling improved. Nausea resolved. She was able to keep down food and drink as well as oral potassium replacement. She states she is ready to be discharged at this time. She is complaining of some lower back pain. Was offered Tylenol and declined. States she is just ready to go. Wants to walk around. Advised close follow-up with OBGYN for further evaluation. Advised to avoid further marijuana use as this could be contributing to her nausea and vomiting as well as not being safe during . Given return precautions. Advised to continue to utilize her nausea medications at home. Discharged in stable condition. Medical Records Attestation: I reviewed the patient's medical records. Lab Data Attestation: I reviewed the patient's lab results. 03/25/25 09:44 03/25/25 09:44 Labs: Lab Results 03/25/25 03/25/25 Range/Units 09:44 10:28 WBC 11.4 H (4.5-10.0) K/mm3 RBC 4.34 (4.2-5.4) M/mm3 Hgb 11.6 L (12.0-15.0) g/dL Hct 35.3 L (37.0-47.0) % MCV 81.3 (80-100) fl MCH 26.7 (26-34) pg MCHC 32.9 (32-36) g/dl RDW 14.5 (11.5-14.5) % Plt Count 247 (150-375) k/mm3 MPV 10.3 (7.4-10.4) fl Immature Gran % (Auto) 0.7 H (0-0.5) % Neut % (Auto) 83.3 H (45.5-73.1) % Lymph % (Auto) 12.7 L (18.3-44.2) % [place] % (Auto) 2.7 (2.6-8.5) % Eos % (Auto) 0.2 (0-4.4) % Baso % (Auto) 0.4 (0.2-1.2) % Lymph # (Auto) 1.45 (0.9-3.2) K/mm3 [place] # (Auto) 0.3 (0.1-0.6) K/mm3 Eos # (Auto) 0.0 (0-0.3) K/mm3 Baso # (Auto) 0.0 (0.0-0.1) K/mm3 Abs Immat Gran (auto) 0.08 H (0.00-0.031) K/mm3 Absolute Neuts (auto) 9.5 H (1.3-6.7) K/mm3 Absolute Nucleated RBC 0.000 (0.0-0.012) K/mm3 Nucleated RBC % 0.0 (0.0-0.2) % Sodium 134 L (137-145) mmol/L Potassium 3.3 L (3.4-5.0) mmol/L Chloride 102 (98-107) mmol/L Carbon Dioxide 20 L (22-30) mmol/L Anion Gap 12 (4-12) mmol/L BUN 10 D (7-17) mg/dL Creatinine 0.52 L (0.7-1.0) mg/dL Estim Creat Clear Calc 112 ml/min Estimated GFR > 60 (59 - ) Glucose 124 H (65-110) mg/dL Calcium 8.9 (8.4-10.2) mg/dL Magnesium 1.4 L (1.6-2.3) mg/dL Total Bilirubin 0.3 (0.2-1.3) mg/dL AST 31 (14-36) U/L ALT 21 (6-35) U/L Alkaline Phosphatase 44 (38-126) U/L Total Protein 6.8 (6.3-8.2) g/dL Albumin 3.8 (3.5-5.1) g/dL Lipase 64 (23-300) U/L Urine Color Yellow (Yellow) Urine Appearance Cloudy H (Clear) Urine pH 8.0 (5.0-9.0) Ur Specific [place] 1.021 (1.001-1.035) Urine Protein Trace (Negative) mg/dL Urine Glucose (UA) Negative (Negative) mg/dL Urine Ketones Negative (Negative) mg/dL Ur Blood (Man) Negative (Negative) Urine Nitrate Negative (Negative) Urine Bilirubin Negative (Negative) Urine Urobilinogen 0.2 (<2.0) mg/dL Leukocyte Esterase Rfl Negative (Negative) ROSALIE/UL Urine RBC 0-2 (0-2) /hpf Urine WBC 0-5 (0-3) /hpf Ur Squamous Epith Cells Moderate (Few) /hpf Urine Bacteria None seen /hpf Urine Casts 0-2 Urine Opiates Screen Negative (Negative) Urine Methadone Screen Negative (Negative) Ur Barbiturates Screen Negative (Negative) Ur Phencyclidine Scrn Negative (Negative) Ur Amphetamine Screen Negative (Negative) U Benzodiazepines Scrn Negative (Negative) Urine Cocaine Screen Negative (Negative) U Cannabinoids Screen Positive A (Negative) Imaging Data Attestation: I personally reviewed and interpreted this imaging study as follows: Radiologist's impression: ITS Impressions Obstetrics Ultrasound 03/25/25 12:05 IMPRESSION: 1. Single living fetus in reach presentation with heart rate of 145 bpm. 2. 2. Gestational age by ultrasound of 16 weeks 6 day(s) +/- 1 week and 4 days day(s) with ultrasound estimated date of delivery (KB) of 09/03/2025. Discharge Plan Discharge Clinical Impression: Nausea and vomiting during , 15 weeks gestation of , Marijuana use during Patient Disposition: Home Condition: Stable Instructions: Antibiotic Form, Dehydration (ED), Acute Nausea and Vomiting (ED), at 15 to 18 Weeks (ED) Additional Instructions: Utilize your home nausea medications as needed and prescribed. Recommend small frequent meals throughout the day to avoid worsening of nausea. Increase fluid intake. Recommend electrolyte rich fluids, gatorade, pedialyte, body armour. Recommend clear liquids or bland diet until symptoms improve, such as bananas, rice, applesauce, toast, or crackers. You may take Tylenol as needed for pain. Avoid further marijuana use as this can cause worsening of your nausea/vomiting and is not safe for your baby. Follow up with your OBGYN for further evaluation. Return to the ED if you experience worsening or severe symptoms, unable to keep down food or drink, severe pain, fevers, vaginal bleeding, or any other symptoms of concern. Patient Language: Bengali Prescriptions: No Action Se-Kwasi 19 29 mg iron- 1 mg tablet 1 tablet PO DAILY sertraline 25 mg tablet 25 mg PO DAILY promethazine 25 mg suppository 25 mg RECTAL Q6H PRN (Reason: nausea and vomiting) Qty: 12 0RF cephalexin 500 mg capsule 500 mg PO Q12H 7 Days Qty: 14 0RF metoclopramide HCl 5 mg tablet 5 mg PO Q8H PRN (Reason: nausea and vomiting) Qty: 10 0RF Follow-up/Referrals: Sakina Cantrell CNM [Primary Care Provider, APPRENTICE TECHNICIAN] Time of Disposition: 12:53
--- NOTE | 2025-03-25 09:42 | PC.NURSE ---
Pt unable to provide urine sample, states she is dehydrated and unable to pee, declined straight cath.
[2025-03-25 09:53] LABS: Hematocrit 35.3 % (37.0-47.0); Hemoglobin 11.6 g/dL (12.0-15.0); Immature Granulocyte Percent A 0.7 % (0-0.5); Lymphocytes Absolute Auto 1.45 K/mm3 (0.9-3.2); Mean Corpuscular HGB Conc 32.9 g/dl (32-36); Mean Corpuscular Hemoglobin 26.7 pg (26-34); Mean Corpuscular Volume 81.3 fl (80-100); Nucleated Red Blood Cells Absolute Auto 0.000 K/mm3 (0.0-0.012); Nucleated Red Blood Cells Perc 0.0 % (0.0-0.2); Platelet Count Result 247 k/mm3 (150-375); Red Blood Count 4.34 M/mm3 (4.2-5.4); White Blood Count 11.4 K/mm3 (4.5-10.0)
--- OUTSIDE RECORDS SUMMARY | 2025-03-25 09:56 | XMS_ITS | Encounter Summary ---
Author Organization [facility] Address 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
--- OUTSIDE RECORDS SUMMARY | 2025-03-25 09:56 | XMS_ITS | Encounter Summary ---
Author Organization [facility] Address 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
--- OUTSIDE RECORDS SUMMARY | 2025-03-25 09:56 | XMS_ITS | Encounter Summary ---
Author Organization [facility] Address [address] [facility] [address] [facility] [address] [facility] Attn: [place] [address] Care Team Providers Care Resident Director Name Role Phone Unavailable Primary Care Provider Unavailabl e Encounter Details Date Type Department Care Team (Late st Contact Info) Description 2002 Inpatient Historical [place], Rodger Carter MD [address] [facility] [address] [place] [address] Sakina Stoddard MD [address] [facility] [address] [place] [address] SINGL BORN IN HOSP-NO C/DELIVERY (Primary Dx) Social History Tobacco Use Types Packs/Day Years Used Date Smoking Tobacco: Never Assessed Comments Unknown Sex and Gender Information Value Date Recorded Sex Assigned at Not on file 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
--- OUTSIDE RECORDS SUMMARY | 2025-03-25 09:56 | XMS_ITS | Clinical Summary ---
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
--- OUTSIDE RECORDS SUMMARY | 2025-03-25 09:56 | XMS_ITS | Encounter Summary ---
Author Organization [facility] Address [address] [place] [address] Care Team Providers Care Chlorinator Name Role Phone Unavailable Primary Care Provider Unavailabl e Encounter Details Date Type Department Care Team (Late st Contact Info) Description 2002 Outpatient Historical [facility] Pediatrics - [facility] [address] [facility] [address] [address] Radhika Emmanuel MD NO ADDRESS ON FILE Social History Tobacco Use Types Packs/Day Years Used Date Smoking Tobacco: Never Assessed Comments Unknown Sex and Gender Information Value Date Recorded Sex Assigned at Not on file Legal Sex Female 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
--- OUTSIDE RECORDS SUMMARY | 2025-03-25 09:56 | XMS_ITS | Encounter Summary ---
Author Organization [facility] Address [address] [place] [address] Care Team Providers Care Teenage Program Director Name Role Phone Unavailable Primary Care Provider Unavailabl e Encounter Details Date Type Department Care Team (Late st Contact Info) Description 2002 Outpatient Historical [facility] Pediatrics - 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
--- OUTSIDE RECORDS SUMMARY | 2025-03-25 09:57 | XMS_ITS | Clinical Summary ---
Author Organization [facility] Address [address] [place] [address] Care Team Providers Care Slat Basket Top Maker Name Role Phone No, Physician Primary Care Provider [phone] Allergies Active Allergy Reactions Criticality Noted Date [...] on file Legal Sex Female 7:24 PM HEEL CURVER Gender Identity Not on file Sexual Orientation [...] 10/28/2003 HPV Vaccines Completed 05/28/2018, 08/22/2016 Insurance [facility] Care Teams Slat Basket Top Maker Relationship Specialty Start Date End Date No, Physician PCP - General 04/16/24
--- OUTSIDE RECORDS SUMMARY | 2025-03-25 09:57 | XMS_ITS | Patient Health Record ---
Author Organization [facility] Address [address] [place] [address] Care Team Providers Care Mobile Development Manager Name Role Phone Cesilia Ibanez Primary Care Provider Cesilia Ibanez Unavailable [phone] Allergies Allergen (clinical drug ingredient) Drug/Non Drug [...] Risk Notes Problem Attention deficit hyperactivity disorder (135797570) ADHD (attention deficit hyperactivity disorder) (F90.9) Active confirmed Problem Mixed bipolar I disorder (51681617) Bipolar 1 disorder, mixed (F31.60) Active confirmed Rule out Problem Disruptive mood dysregulation disorder (202154990) DMDD (disruptive mood dysregulation disorder) (F34.81) Active confirmed Plan Of Treatment No Information Insurance Providers Payer Name Payer Address Payer Phone Subscriber Number Group Number Insured Name Patient Relationship to Insured Coverage Start Date Coverage End Date [facility] Att Claims Department [address] [place] [address] [id number] Mae Frances Self - patient is the insured 9 [employer] Attn Claims Department [address] [place] [address] [phone] [id number] Mae Frances Self - patient is the insured 1 Medical (General) History Surgical History Surgery Date(Month/Year) Hospitalization History Reason Date(Month/Year)
--- OUTSIDE RECORDS SUMMARY | 2025-03-25 09:57 | XMS_ITS | Clinical Summary ---
Author Organization [facility] Address [address] [place] [address] Care Team Providers Care Stockroom Selector Name Role Phone None, Physician Primary Care Provider Unavailabl e Source Comments [facility],non-owned Affiliates and Associated Physician Practices is amultiple site organization consisting of ambulatory clinics and hospital sitesin [place], [place]. This disclosure is being madepursuant to the Care Everywhere program and may not contain all information available regarding this patient. Last updated 18.[facility] [employer] Allergies Active Allergy Reactions Criticality Noted Date [...] as an outpatient with Dr. Lomas at [facility] Constipation, unspecified constipation type 01/03 Assessment & [...] 09/17/2018 Assessment & Plan (09/17/2018 8:55 PM TELEVISION PROGRAM DIRECTOR): 17 y.o. F with DMDD, Bipolar disorder [...] F/u with [facility] on Saturday Jade, School Guard at [facility] [phone]) Counseling regarding goals of care 01/28/2012 Overview [...] If unable to transfer to [facility] directly will send patient home with close outpatient follow-up with current Psychiatrist, psychiatry, as well as behavior charts and home schedule. Mother stated understanding and voiced agreement. 01/31- No bed available for months at [facility], pending biopsy results, will send patient home with daily bowel regimen, diary, and close out patient follow-up. Behavior disorder 01/25/2012 Overview (03/26/2012): Followed by Dr. Nilsa Rivera @[phone], ALT# [phone]. Spoken to during the 01/24 admission to [...] therapist until a bed is available at [facility]. 03/24/[address] Nilsa Rivera @[phone], ALT# [phone], Psychiatrist taking care of Mae. She informed [...] bloody bowel movements. Social/Behavioral for placement at [facility] was explored but no bed was available. [...] on file Legal Sex Female 5:44 AM TELEVISION PROGRAM DIRECTOR Gender Identity Not on file Sexual [...] patient's age to complete this topic [place] [address] [place] [address] [place] [id number] [facility] Member Subscriber Plan / Payer (Ef fective 2019-Present) Name:Mae Frances Relation to Subscriber:Self Name:Mae Frances Payer ID:[id number] (NAIC) Group ID:Not on file Type:Medicaid Managed Care Address: ATTN CLAIMS DEPARTMENT [place] [id number] Advance Directives * Full Code (Latest Code Status on File) Date Activated Date Inactivated Comments 01/15/2023 12:15 AM 01/16/2023 3:33 PM Care Teams Stockroom Selector Relationship Specialty Start Date End Date None, Physician [address] [place] [address] PCP - General 03/25/23
[2025-03-25] MEDS: SODIUM CHLORIDE 0.9% IV 1,000 ML 999 ML IV CONT (10:11)
[2025-03-25] MEDS: FAMOTIDINE 20 MG/2 ML VIAL IV PUSH (10:11)
[2025-03-25 10:16] LABS: Alanine Aminotransferase 21 U/L (6-35); Albumin Level 3.8 g/dL (3.5-5.1); Alkaline Phosphatase 44 U/L (38-126); Anion Gap 12 mmol/L (4-12); Aspartate Amino Transferase 31 U/L (14-36); Bilirubin,Total 0.3 mg/dL (0.2-1.3); Blood Urea Nitrogen 10 mg/dL (7-17); Calcium 8.9 mg/dL (8.4-10.2); Carbon Dioxide 20 mmol/L (22-30); Chloride 102 mmol/L (98-107); Estimated CRCL calculation 112 ml/min; Estimated Glomerular Filt Rate > 60; Glucose 124 mg/dL (65-110); Lipase 64 U/L (23-300); Magnesium 1.4 mg/dL (1.6-2.3); Potassium 3.3 mmol/L (3.4-5.0); Sodium 134 mmol/L (137-145); Total Protein 6.8 g/dL (6.3-8.2)
[2025-03-25] MEDS: MAGNESIUM SULF 2 GM/WATER 50ML 2 GM/50 ML BAG IVPB (10:26)
[2025-03-25] MEDS: METOCLOPRAMIDE HCL INJ 10 MG/2 ML VIAL IV PUSH (10:26)
[2025-03-25 10:42] LABS: Add Urine Microscopic? YES; Appearance Urine Cloudy (Clear); Glucose Urine UA Negative (Negative); Leukocyte Esterase Ur Negative LEU/UL (Negative); Nitrate Urine Negative (Negative); Non Pathogenic Casts 0-2; Specific Grav Ur 1.021 (1.001-1.035)
[2025-03-25 11:07] VITALS: BP 100/62; PULSE 71; RESP 18; O2SAT 100
--- OUTSIDE RECORDS SUMMARY | 2025-03-25 11:09 | XMS_ITS | Encounter Summary ---
Author Organization [facility] Address [address] [place] [address] Care Team Providers Care Light Industrial Supervisor Name Role Phone Unavailable Primary Care Provider Unavailabl e Encounter Details Date Type Department Care Team (Latest Contact Info) Description 2002 Outpatient Historical [facility] Radhika Bojorquez MD NO ADDRESS ON FILE CONGENITAL HYPOTHYROIDSM (Primary Dx) Social History Tobacco Use Types Packs/Day Years Used Date Smoking Tobacco: Never Assessed Comments Unknown Sex and Gender Information Value Date Recorded Sex Assigned at Not on file Legal Sex Female 2:53 AM POLICE SUPERINTENDENT Gender Identity Not on file Sexual Orientation Not on file documented as of this encounter Plan of Treatment Not on file documented as of this encounter Visit Diagnoses Diagnosis Congenital hypothyroidism- Primary documented in this encounter
--- OUTSIDE RECORDS SUMMARY | 2025-03-25 11:09 | XMS_ITS | Clinical Summary ---
Author Organization [facility] Address [address] [place] [address] Phone Care Team Providers Care Farm Loan Inspector Name Role Phone Unavailable Primary Care Provider [...] on file Legal Sex Female 2:53 AM METAL STAMPING MACHINE OPERATOR Gender Identity Not on file [...]
--- OUTSIDE RECORDS SUMMARY | 2025-03-25 11:09 | XMS_ITS | Clinical Summary ---
Author Organization [facility] Address [address] [place] [address] Care Team Providers Care Educational Paraprofessional Name Role Phone None, Physician Primary Care Provider Unavailabl e Source Comments [facility],non-owned Affiliates and Associated Physician Practices is amultiple site organization consisting of ambulatory clinics and hospital sitesin [place], [place], [place] and [place]. This disclosure is being madepursuant to the Care Everywhere program and may not contain all information available regarding this patient. Last updated 18.[facility] [employer] Allergies Active Allergy Reactions Criticality Noted Date [...] as an outpatient with Dr. Lomas at [facility] Constipation, unspecified constipation type 01/03 [...] & Plan (09/17/2018 8:55 PM DIRECTOR OF ENTERTAINMENT): 17 y.o. F with DMDD, Bipolar disorder [...] F/u with [facility] on Saturday Jade, Delivery Architect at [facility] ([phone]) Counseling regarding goals of care 01/28/2012 Overview [...] several weeks. If unable to transfer to [facility] directly will send patient home with close outpatient follow-up with current Psychiatrist, psychiatry, as well as behavior charts and home schedule. Mother stated understanding and voiced agreement. 01/31- No bed available for months at [facility], pending biopsy results, will send patient home with daily bowel regimen, diary, and close out patient follow-up. Behavior disorder 01/25/2012 Overview (03/26/2012): Followed by Dr. Nilsa Rivera @[phone], ALT# [phone]. Spoken to during the 01/24 admission to [...] therapist until a bed is available at [facility]. 03/24/[address] Nilsa Rivera @[phone], ALT# [phone], Psychiatrist taking care of Mae. She informed [...] bloody bowel movements. Social/Behavioral for placement at [facility] was explored but no bed was [...] Legal Sex Female 5:44 AM DIRECTOR OF ENTERTAINMENT Gender Identity Not on file Sexual Orientation [...] patient's age to complete this topic [place] [address] [place] [id number] [facility] Member Subscriber Plan / Payer (Ef fective 2019-Present) Name:Mae Frances Relation to Subscriber:Self Name:Mae Frances Payer ID:[id number] (NAIC) Group ID:Not on file Type:Medicaid Managed Care Address: ATTN CLAIMS DEPARTMENT [place] [id number] Advance Directives * Full Code (Latest Code Status on File) Date Activated Date Inactivated Comments 01/15/2023 12:15 AM 01/16/2023 3:33 PM Care Teams Educational Paraprofessional Relationship Specialty Start Date End Date None, Physician [address] [place] [address] PCP - General 03/25/23
--- OUTSIDE RECORDS SUMMARY | 2025-03-25 11:09 | XMS_ITS | Encounter Summary ---
Author Organization [facility] Address [address] [place] [address] Care Team Providers Care Director Of Marketing Operations Name Role Phone Unavailable Primary Care Provider Unavailabl e Encounter Details Date Type Department Care Team (Late st Contact Info) Description 2002 Outpatient Historical [facility] Pediatrics - [facility] [address] [address] Radhika Emmanuel MD NO ADDRESS ON FILE Social History Tobacco Use Types Packs/Day Years Used Date Smoking Tobacco: Never Assessed Comments Unknown Sex and Gender Information Value Date Recorded Sex Assigned at Not on file Legal Sex Female 2:53 AM 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
--- OUTSIDE RECORDS SUMMARY | 2025-03-25 11:09 | XMS_ITS | Encounter Summary ---
Author Organization [facility] Address [address] [place] [address] Care Team Providers Care Accounting Clerks Supervisor Name Role Phone Unavailable Primary Care Provider Unavailabl e Encounter Details Date Type Department Care Team (Late st Contact Info) Description 2002 Outpatient Historical [facility] Hearing Services [address] [place] [address] Cristel Nelson [address] [place] [address] Social History Tobacco Use Types Packs/Day Years Used Date Smoking Tobacco: Never Assessed Comments Unknown Sex and Gender Information Value Date Recorded Sex Assigned at Not on file Legal Sex Female 2:53 AM ACCOUNTING CLERKS SUPERVISOR Gender Identity Not on file Sexual Orientation Not on file documented as of this encounter Plan of Treatment Not on file documented as of this encounter Visit Diagnoses Not on filedocumented in this encounter
--- OUTSIDE RECORDS SUMMARY | 2025-03-25 11:09 | XMS_ITS | Encounter Summary ---
Author Organization [facility] Address [address] [facility] [address] Attn: [place] [address] Care Team Providers Care Foundry Supervisor Name Role Phone Unavailable Primary Care Provider Unavailabl e Encounter Details Date Type Department Care Team (Late st Contact Info) Description 2002 Inpatient Historical [place], Rodger Carter MD [address] [facility] [id number] [place] [address] Sakina Stoddard MD [address] [facility] [address] [place] [address] SINGL BORN IN HOSP-NO C/DELIVERY (Primary Dx) Social History Tobacco Use Types Packs/Day Years Used Date Smoking Tobacco: Never Assessed Comments Unknown Sex and Gender Information Value Date Recorded Sex Assigned at Not on file Legal Sex Female 2:53 AM FIELD HAULER Gender Identity Not on file Sexual Orientation Not on file documented as of this encounter Plan of Treatment Not on file documented as of this encounter Visit Diagnoses Diagnosis Single liveborn, born in hospital, delivered without mention of delivery- Primary documented in this encounter
--- OUTSIDE RECORDS SUMMARY | 2025-03-25 11:09 | XMS_ITS | Encounter Summary ---
Author Organization [facility] Address [address] [place] [address] Care Team Providers Care Hog Man Name Role Phone Unavailable Primary Care Provider Unavailabl e Encounter Details Date Type Department Care Team (Late st Contact Info) Description 2002 Outpatient Historical [facility]s - [facility] [address] [address] Rodger Verma MD [id number] [place] [address] Social History Tobacco Use Types Packs/Day Years Used Date Smoking Tobacco: Never Assessed Comments Unknown Sex and Gender Information Value Date Recorded Sex Assigned at Not on file 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
--- OUTSIDE RECORDS SUMMARY | 2025-03-25 11:09 | XMS_ITS | Clinical Summary ---
Author Organization [facility] Address [address] [place] [address] Care Team Providers Care Hydraulic Operator Name Role Phone No, Physician Primary Care Provider [phone] Allergies Active Allergy Reactions Criticality Noted Date [...] on file Legal Sex Female 7:24 PM PLISSE MACHINE OPERATOR HELPER Gender Identity Not on file Sexual Orientation [...] 10/28/2003 HPV Vaccines Completed 05/28/2018, 08/22/2016 Insurance [facility] Care Teams Hydraulic Operator Relationship Specialty Start Date End Date No, Physician PCP - General 04/16/24
[2025-03-25 11:10] LABS: Cannabinoid Screen Urine Positive (Negative)
[2025-03-25] MEDS: ONDANSETRON INJ 4 MG/2 ML VIAL IV PUSH (12:19)
[2025-03-25 12:22] VITALS: BP 114/67; PULSE 93; RESP 19; O2SAT 99
[2025-03-25] MEDS: POTASSIUM CHLORIDE 20 MEQ ER TABLET PO (12:26)
== END 2025-03-25 13:23 | disposition home or self-care (01) ==
PROVIDERS: Emergency Provider Physician Assistant; PCP Advanced Practice Midwife
DX: O21.9 Vomiting of pregnancy, unspecified (principal); O99.322 Drug use complicating pregnancy, second trimester; F12.90 Cannabis use, unspecified, uncomplicated; O99.332 Smoking (tobacco) complicating pregnancy, second trimester; F17.290 Nicotine dependence, other tobacco product, uncomplicated; O99.342 Other mental disorders complicating pregnancy, second trimester; F31.9 Bipolar disorder, unspecified; Z3A.15 15 weeks gestation of pregnancy; Z86.16 Personal history of COVID-19
CPT/HCPCS: 36415; 76815; 80053; 80307; 81001; 83690; 83735; 85025; 96361; 96365; 96375; 99284; A9270; J1200; J2405; J2765; J3475; J7030

== ENCOUNTER 2025-05-20 20:47 | Emergency (ER) | payer BC, MEDICAID, SELFPAY ==
[2025-05-20 20:50] VITALS: BP 119/72; PULSE 106; RESP 20; TEMP 36.4; O2SAT 97
--- OUTSIDE RECORDS SUMMARY | 2025-05-20 20:50 | XMS_ITS | Encounter Summary ---
Author Organization [facility] Address [address] [facility] [address] [address] Attn: [place] [address] Care Team Providers Care Weigh And Charge Worker Name Role Phone Unavailable Primary Care Provider Unavailabl e Encounter Details Date Type Department Care Team (Late st Contact Info) Description 2002 Inpatient Historical [place], Rodger Carter MD [address] [facility] [place] [place] [address] Sakina Stoddard MD [address] [facility] [address] [place] [address] SINGL BORN IN HOSP-NO C/DELIVERY (Primary Dx) Social History Tobacco Use Types Packs/Day Years Used Date Smoking Tobacco: Never Assessed Comments Unknown Sex and Gender Information Value Date Recorded Sex Assigned at Not on file Legal Sex Female 2:53 AM FINISHING MANAGER Gender Identity Not on file Sexual Orientation Not on file documented as of this encounter Plan of Treatment Not on file documented as of this encounter Visit Diagnoses Diagnosis Single liveborn, born in hospital, delivered without mention of delivery- Primary documented in this encounter
--- OUTSIDE RECORDS SUMMARY | 2025-05-20 20:50 | XMS_ITS | Clinical Summary ---
Author Organization [facility] Address [address] [place] [address] Phone Care Team Providers Care Out Of Town Collection Clerk Name Role Phone Unavailable Primary Care [...] on file Legal Sex Female 2:53 AM FRONT DESK RECEPTIONIST Gender Identity Not on file Sexual Orientation [...]
--- OUTSIDE RECORDS SUMMARY | 2025-05-20 20:50 | XMS_ITS | Encounter Summary ---
Author Organization [facility] Address [address] [place] [address] Care Team Providers Care Shaker Repairer Name Role Phone Unavailable Primary Care Provider Unavailabl e Encounter Details Date Type Department Care Team (Late st Contact Info) Description 2002 Outpatient Historical [facility] Pediatrics - [facility] [address] [address] Radhika Emmanuel MD NO ADDRESS ON FILE Social History Tobacco Use Types Packs/Day Years Used Date Smoking Tobacco: Never Assessed Comments Unknown Sex and Gender Information Value Date Recorded Sex Assigned at Not on file Legal Sex Female 2:53 AM ROD MILL TENDER Gender Identity Not on file Sexual Orientation Not on file documented as of this encounter Plan of Treatment Not on file documented as of this encounter Visit Diagnoses Not on filedocumented in this encounter
--- OUTSIDE RECORDS SUMMARY | 2025-05-20 20:50 | XMS_ITS | Clinical Summary ---
Author Organization [facility] Address [address] [place] [address] Care Team Providers Care Heater Operator Name Role Phone None, Physician Primary Care Provider Unavailabl e Source Comments [facility],non-owned Affiliates and Associated Physician Practices is amultiple site organization consisting of ambulatory clinics and hospital sitesin [place], [place], [place] and [place]. This disclosure is being madepursuant to the Care Everywhere program and may not contain all information available regarding this patient. Last updated 18.[facility] [employer] Allergies Active Allergy Reactions Criticality Noted Date [...] as an outpatient with Dr. Lomas at [facility] Constipation, unspecified constipation type 01/03 Assessment & [...] 09/17/2018 Assessment & Plan (09/17/2018 8:55 PM TRACK DRESSER): 17 y.o. F with DMDD, Bipolar disorder [...] F/u with [facility] on Saturday Jade, Wood Cut Engraver at [facility] ([phone]) Counseling regarding goals of care 01/28/2012 Overview [...] several weeks. If unable to transfer to [facility] directly will send patient home [...] Overview (03/26/2012): Followed by Dr. Nilsa Rivera @[phone], ALT# [phone]. Spoken to during the 01/24 admission to [...] therapist until a bed is available at [facility]. 03/24/[address] Nilsa Rivera @[phone], ALT# [phone], Psychiatrist taking care of Mae. She informed [...] bloody bowel movements. Social/Behavioral for placement at [facility] was explored but no bed was [...] on file Legal Sex Female 5:44 AM TRACK DRESSER Gender Identity Not on file Sexual Orientation [...] history exists COVID-19 VACCINE (3 - season) 2025 11/24/2020, 11/03/2020 INFLUENZA VACCINE (#1) 2025 05/17/2020, [...] patient's age to complete this topic [place] [address] [place] [address] [place] [id number] [facility] Member Subscriber Plan / Payer (Ef fective 2019-Present) Name:Mae Frances Relation to Subscriber:Self Name:Mae Frances Payer ID:[id number] (NAIC) Group ID:Not on file Type:Medicaid Managed Care Address: ATTN CLAIMS DEPARTMENT [place] [id number] Advance Directives * Full Code (Latest Code Status on File) Date Activated Date Inactivated Comments 01/15/2023 12:15 AM 01/16/2023 3:33 PM Care Teams Heater Operator Relationship Specialty Start Date End Date None, Physician [address] [place] [address] PCP - General 03/25/23
--- OUTSIDE RECORDS SUMMARY | 2025-05-20 20:50 | XMS_ITS | Encounter Summary ---
Author Organization [facility] Address [address] [place] [address] Care Team Providers Care Hat And Cap Drying Room Attendant Name Role Phone Unavailable Primary Care Provider Unavailabl e Encounter Details Date Type Department Care Team (Late st Contact Info) Description 2002 Outpatient Historical [facility] Hearing Services [address] [place] [address] Cristel Nelson AU.D [address] [place] [address] Social History Tobacco Use Types Packs/Day Years Used Date Smoking Tobacco: Never Assessed Comments Unknown Sex and Gender Information Value Date Recorded Sex Assigned at Not on file Legal Sex Female 2:53 AM PROBATE PARALEGAL Gender Identity Not on file Sexual Orientation Not on file documented as of this encounter Plan of Treatment Not on file documented as of this encounter Visit Diagnoses Not on filedocumented in this encounter
--- OUTSIDE RECORDS SUMMARY | 2025-05-20 20:50 | XMS_ITS | Data Portability ---
Author Organization [facility] Address [address] [place] [place] [address] Assessment Encounter Date Assessment Date Assessment LastModified by Organization Details LastModified Time 04/28/2025 04/28/2025 Patient is _20__weeks . Discussed plan. Not available 04/28/2025 12:54:29 Plan of Treatment Reminders Order Date Submit Date Provider Last Modified By Organization Details Last Modified Time Details Appointments U/S OB BASELIN E 2024 10:00A M ULTRASOUND Not available Not available Not available OB ROUTINE 2024 10:30A M Sakina Cantrell CNM Not available Not available Not available Lab None recorde d. Referral None recorde d. Procedures None recorde d. Surgeries None recorde d. Imaging US, obstetr ic, 2nd or 3rd trimest er 2024 025 [email or web address], [address], [place], [address], 04/29/2025 18:25:28 US, obstetr ic, nuchal translu cency 2024 025 [email or web address], [address], [place], [address], 03/04/2025 16:22:59 US, obstetr ic, 1st trimest er 2024 025 [email or web address] [address], [address], [place], [address], 03/04/2025 16:22:59 Medication Orders Difluca n 150 mg tablet 2024 025 [id number], [address] , [place], [place], [id number], 03/19/2025 05:01:42 amoxici llin 500 mg capsule 2024 025 [place] [id number], [address] , [place], [place], [id number], 03/19/2025 05:01:43 Patient TargetsNo targets recorded. Patient InstructionsNo instructions recorded. Reason for Referral None Reported. Results Created Date Observation Date Name Description Value Unit Range Abnormal Flag Note LastModifiedBy Organization Detail LastModifiedTime 03/12/2003/12/2025 [UNIT Y] ANEUP LOIDY NIPT fraction 10.3% normal Not Available [address] [address], [place], [address], 03/12/2025 00:32:43 03/12/20 25 03/12/2025 [UNIT Y] ANEUP LOIDY NIPT 22Q11.2 microdeletio n LOW RISK <1 in 10,000 normal Not Available [address] [address], [place], [address], 03/12/2025 00:32:43 03/12/2003/12/2025 [UNIT Y] ANEUP LOIDY NIPT sex chromosome aneuploidy NOT DETECT ED normal Not Available [address] [address], [place], [address], 03/12/2025 00:32:43 03/12/20 25 03/12/2025 [UNIT Y] ANEUP LOIDY NIPT monosomy X LOW RISK <1 in 10,000 normal Not Available [address] [address], [place], [address], 03/12/2025 00:32:43 03/12/20 25 03/12/2025 [UNIT Y] ANEUP LOIDY NIPT trisomy 13 LOW RISK <1 in 10,000 normal Not Available [facility] [address], [place], [address], 03/12/2025 00:32:43 03/12/20 25 03/12/2025 [UNIT Y] ANEUP LOIDY NIPT trisomy 18 LOW RISK <1 in 10,000 normal Not Available [address] [address], [place], [address], 03/12/2025 00:32:43 03/12/20 25 03/12/2025 [UNIT Y] ANEUP LOIDY NIPT trisomy 21 LOW RISK <1 in 10,000 normal Not Available [facility] [address], [place], [address], 03/12/2025 00:32:43 03/12/20 25 03/12/2025 [UNIT Y] ANEUP LOIDY NIPT sex FEMALE normal Not Available [facility] [address], [place], [address], 03/12/2025 00:32:43 03/12/20 25 03/12/2025 [UNIT Y] ANEUP LOIDY NIPT gestation SINGLE TON normal Not Available [facility] [address], [place], [address], 03/12/2025 00:32:43 03/12/20 25 03/12/2025 [UNIT Y] ANEUP LOIDY NIPT for detailed report, see pdf See PDF normal Not Available [facility] [address], [place], [address], 03/12/2025 00:32:43 03/04/20 25 03/04/2025 CBC W/DIF F WBC 6.6 10'3/ uL 3.5-10 .5 Not Available [facility] (Lab) [address], [place], [address], 03/05/2025 14:35:50 03/04/20 25 03/04/2025 CBC W/DIF F RBC 4.56 10'6/ uL (based on docume nted legal sex) 3.80-5 .20 Not Available [facility] (Lab) [address], [place], [address], 03/05/2025 14:35:50 03/04/20 25 03/04/2025 CBC W/DIF F HGB 12.2 g/dL (based on docume nted legal sex) 11.6-1 5.4 Not Available [facility] (Lab) [address], [place], [address], 03/05/2025 14:35:50 03/04/20 25 03/04/2025 CBC W/DIF F HCT 36.8 % (based on docume nted legal sex) 34.0-4 5.0 Not Available [facility] (Lab) [address], [place], [address], 03/05/2025 14:35:50 03/04/20 25 03/04/2025 CBC W/DIF F MCV 80.7 fL 80.0-9 9.0 Not Available [facility] (Lab) [address], [place], [address], 03/05/2025 14:35:50 03/04/20 25 03/04/2025 CBC W/DIF F MCH 26.8 pg 27.0-3 4.0 low Not Available [facility] (Lab) [address], [place], [address], 03/05/2025 14:35:50 03/04/20 25 03/04/2025 CBC W/DIF F MCHC 33.2 g/dL 32.0-3 5.5 Not Available [facility] (Lab) [address], [place], [address], 03/05/2025 14:35:50 03/04/20 25 03/04/2025 CBC W/DIF F RDW 14.6 % 11.0-1 5.0 Not Available [facility] (Lab) [address], [place], [address], 03/05/2025 14:35:50 03/04/20 25 03/04/2025 CBC W/DIF F plt 318 10'3/ uL 150-40 0 Not Available [facility] (Lab) [address], [place], [address], 03/05/2025 14:35:50 03/04/20 25 03/04/2025 CBC W/DIF F MPV 10.8 fL 8.8-12 .1 Not Available [facility] (Lab) [address], [place], [address], 03/05/2025 14:35:50 03/04/20 25 03/04/2025 CBC W/DIF F NRBC's 0.0 % 0.0 Not Available [facility] (Lab) [address], [place], [address], 03/05/2025 14:35:50 03/04/20 25 03/04/2025 CBC W/DIF F absolute NRBCs 0.0 10'3/ uL no refere nce range establ ished Not Available [facility] (Lab) [address], [place], [address], 03/05/2025 14:35:50 03/04/20 25 03/04/2025 CBC W/DIF F neutrophils 62.2 % 34.0-7 3.0 Not Available [facility] (Lab) [address], [place], [address], 03/05/2025 14:35:50 03/04/20 25 03/04/2025 CBC W/DIF F lymphocytes 29.5 % 15.0-5 0.0 Not Available [facility] (Lab) [address], [place], [address], 03/05/2025 14:35:50 03/04/20 25 03/04/2025 CBC W/DIF F monocytes 5.1 % 1.0-15 .0 Not Available [facility] (Lab) [address], [place], [address], 03/05/2025 14:35:50 03/04/20 25 03/04/2025 CBC W/DIF F eosinophils 2.1 % 0.0-8. 0 Not Available [facility] (Lab) [address] [facility], [place], [address], 03/05/2025 14:35:50 03/04/20 25 03/04/2025 CBC W/DIF F basophils 0.6 % 0.0-2. 0 Not Available [facility] (Lab) [address] [facility], [place], [address], 03/05/2025 14:35:50 03/04/20 25 03/04/2025 CBC W/DIF F immature granulocytes 0.5 % no define d refere nce range Immat ure Granu locyt es (IG) repre sents autom ated enume ratio n of Metam yeloc ytes, Myelo cytes and Promy elocy raven when IG is < 5%. Blast s are not inclu ded in IG and repor onesimo separ ately if prese nt. Not Available [facility] (Lab) [address] , [place], [address], 03/05/2025 14:35:50 03/04/20 25 03/04/2025 CBC W/DIF F absolute neutrophils 4.1 10'3/ uL 1.5-8. 0 Not Available [facility] (Lab) [address] [facility], [place], [address], 03/05/2025 14:35:50 03/04/20 25 03/04/2025 CBC W/DIF F absolute lymphocytes 2.0 10'3/ uL 1.0-4. 0 Not Available [facility] (Lab) [address] [facility], [place], [address], 03/05/2025 14:35:50 03/04/2003/04/2025 CBC W/DIF F absolute monocytes 0.3 10'3/ uL 0.2-1. 0 Not Available [facility] (Lab) [address] [facility], [place], [address], 03/05/2025 14:35:50 03/04/20 25 03/04/2025 CBC W/DIF F absolute eosinophils 0.1 10'3/ uL 0.0-0. 6 Not Available [facility] (Lab) [address], [place], [address], 03/05/2025 14:35:50 03/04/20 25 03/04/2025 CBC W/DIF F absolute basophils 0.0 10'3/ uL 0.0-0. 3 Not Available [facility] (Lab) [address], [place], [address], 03/05/2025 14:35:50 03/04/20 25 03/04/2025 CBC W/DIF F absolute immature granulocytes 0.0 10'3/ uL 0.00-0 .10 Refer ence range s for nonbi nary/ inter sex or unspe cifie d gende r patie nts have not been estab lishe d. Pleas e refer to the justino wing table for range s estab lishe d for cisge nder patie nts and evalu ate in the clini xander lee xt of the indiv idual patie nt: https :[email or web address] jacoob book. nm.or g/gen derx Not Available [facility] (Lab) [address], [place], [address], 03/05/2025 14:35:50 03/04/2003/04/2025 HEPAT ITIS C ANTIB CARLEEN SCREE N, REFLE X TO CONFI RMATI ON hepatitis C antibody Non-re active non-re active Antib odies to HCV Not Detec onesimo, does not exclu de the possi bilit y of expos ure to HCV. Not Available [facility] (Lab) [address] [facility], [place], [address], 03/05/2025 14:35:51 03/04/20 25 03/04/2025 HEPAT ITIS B SURFA CE ANTIG EN hepatitis B surface antigen Non-re active non-re active This assay was perfo rmed using [employer] ratio n reage nts and test kits. Value s obtai leland with other assay metho ds or kits canno t be used inter soler eably . Not Available [facility] (Lab) [address] [facility], [place], [address], 03/05/2025 14:35:52 03/04/20 25 03/04/2025 HIV 1/2 ANTIG EN/AN TIBOD Y, REFLE X CONFI RMATI ON HIV antigen/anti body Nonrea ctive nonrea ctive HIV-1 antig en and HIV-1 /HIV- 2 antib odies were not detec onesimo. No labor atory evide nce of HIV infec tion. Not Available [facility] (Lab) [address] [facility], [place], [address], 03/05/2025 14:35:52 03/04/20 25 03/04/2025 TSH, REFLE X FREE T4 TSH 1.28 uIU/m L 0.30-5 .33 Not Available [facility] (Lab) [address] [facility], [place], [address], 03/05/2025 14:35:53 03/04/20 25 03/04/2025 RUBEL LA IGG ANTIB CARLEEN, QUANT rubella antibodies, IgG Reacti ve reacti ve Not Available [facility] (Lab) [address] [facility], [place], [address], 03/05/2025 14:35:53 03/04/20 25 03/04/2025 RUBEL LA IGG ANTIB CARLEEN, QUANT rubella antibodies, IgG quant 28.3 IU/mL >=10 Non-r eacti ve (Non- Immun e) <10 IU/mL React phill (Immu ne) > or = 10 IU/mL Not Available [facility] (Lab) [address] [facility], [place], [address], 03/05/2025 14:35:53 03/04/20 25 03/04/2025 TYPE/ RH/SC REEN ABO/Rh type A POS Not Available [facility] (Lab) [address] [facility], [place], [address], 03/05/2025 14:35:54 03/04/20 25 03/04/2025 TYPE/ RH/SC REEN antibody screen NEG Not Available [facility] (Lab) [address] [facility], [place], [address], 03/05/2025 14:35:54 03/04/20 25 03/04/2025 TYPE/ RH/SC REEN exp date 2024 23:59 Not Available [facility] (Lab) [address] [facility], [place], [address], 03/05/2025 14:35:54 03/04/20 25 03/04/2025 RPR SCREE N, REFLE X TITER /CONF IRMAT ION RPR qualitative Nonrea ctive nonrea ctive Not Available [facility] (Lab) [address] [facility], [place], [address], 03/05/2025 14:35:54 03/04/20 25 03/04/2025 HEMOG LOBIN A1C hemoglobin A1C 5.3 % 4.0-5. 6 The Ameri can Diabe raven Assoc iatio n recom mends that a prima ry goal of thera eli reyes be a HBA1C of < 7% and that physi cians ian d reeva luate the treat ment regim en in patie nts with HBA1C value s consi stent ly > 8%. <5.7% Nuria l 5.7 - 6.4% Incre ased risk for diabe raven >=6.5 % Diagn ostic of diabe raven <7.0% Goal of thera py >8.0% Actio n redge sted Not Available [facility] (Lab) [address] [facility], [place], [address], 03/05/2025 14:35:55 03/05/20 25 03/05/2025 CT/GC AND TRICH OMONA S VAGIN MILA (RRNA ), URINE chlamydia trachomatis, PCR Negati ve negati ve Not Available [facility] (Lab) [address] [facility], [place], [address], 03/06/2025 22:36:04 03/05/20 25 03/05/2025 CT/GC AND TRICH OMONA S VAGIN MILA (RRNA ), URINE neisseria gonorrhoeae, PCR Negati ve negati ve Not Available [facility] (Lab) [address] [facility], [place], [address], 03/06/2025 22:36:04 03/05/20 25 03/05/2025 CT/GC AND TRICH OMONA S VAGIN MILA (RRNA ), URINE trichomonas vaginalis ribosomal RNA (rrna) Negati ve negati ve Not Available [facility] (Lab) [address] [facility], [place], [address], 03/06/2025 22:36:04 03/05/20 25 03/05/2025 CULTU RE: URINE result report SEE RESULT S BELOW Test: Cultu re: Urine Speci men Sourc e: Urine - Clean Catch Speci men Type: Urine Speci men Date: 1317 Resul t Date: 1 Resul t Statu s: Final resul t Abnor mal: No Resul ting Lab: [facility] [address] [facility] [address] Tel: CULTU RE ----- ----- ----- --- No growt h in 1 day (dete ction level of 10,00 0 colon ies / ml.) Not Available [facility] (Lab) [address] [facility], [place], [address], 03/06/2025 22:36:04 03/05/20 25 03/05/2025 drug scree n, urine Amphetamines : negati ve Not Available [place] [address], [place], [address], 03/05/2025 13:06:10 03/05/20 25 03/05/2025 drug scree n, urine Cannabinoids : positi ve Not Available [place] [address], [place], [address], 03/05/2025 13:06:10 03/05/20 25 03/05/2025 drug scree n, urine Cocaine: negati ve Not Available [place] [address], [place], [address], 03/05/2025 13:06:10 03/05/20 25 03/05/2025 drug scree n, urine Opiates: negati ve Not Available [place] [address], [place], [address], 03/05/2025 13:06:10 03/05/20 25 03/05/2025 drug scree n, urine Phenocyclidi ne: negati ve Not Available [place] [address], [place], [address], 03/05/2025 13:06:10 03/05/20 25 03/05/2025 drug scree n, urine Barbiturates : negati ve Not Available [place] [address], [place], [address], 03/05/2025 13:06:10 03/05/20 25 03/05/2025 drug scree n, urine Benzodiazepi dea: negati ve Not Available [place] [address], [place], [address], 03/05/2025 13:06:10 03/05/20 25 03/05/2025 drug scree n, urine Ethanol: negati ve Not Available [place] [address], [place], [address], 03/05/2025 13:06:10 03/05/20 25 03/05/2025 drug scree n, urine Hallucinogen s: negati ve Not Available [place] [address], [place], [address], 03/05/2025 13:06:10 03/05/20 25 03/05/2025 drug scree n, urine Inhalants: negati ve Not Available [place] [address], [place], [address], 03/05/2025 13:06:10 03/05/20 25 03/05/2025 drug scree n, urine Anabolic Steroids: negati ve Not Available [address] [address], [place], [address], 03/05/2025 13:06:10 04/28/20 25 04/28/2025 CULTU RE: URINE result report SEE RESULT S BELOW Test: Cultu re: Urine Speci men Sourc e: Urine - Clean Catch Speci men Type: Urine Speci men Date: 2024 1307 Resul t Date: 2024 2146 Resul t Statu s: Final resul t Abnor mal: No Resul ting Lab: [facility] [address] [facility] [address] Tel: CULTU RE ----- ----- ----- --- No growt h in 1 day (dete ction level of 10,00 0 colon ies / ml.) Not Available [facility] (Lab) [address] [facility], [place], [address], 04/29/2025 22:50:16 02/10/20 25 02/09/2025 US, obste tric, trans vagin al No observ ation record ed. [email or web address] [place] [address], [place], [address], 02/11/2025 15:04:38 03/04/20 25 03/04/2025 US, obste tric, nucha l trans lucen cy No observ ation record ed. [email or web address] [place] [address], [place], [address], 03/04/2025 12:51:34 03/04/20 25 03/04/2025 US, obste tric, 1st trime ster No observ ation record ed. [email or web address] [place] [address], [place], [address], 03/04/2025 12:49:29 03/04/20 25 03/04/2025 US, obste tric, follo w-up No observ ation record ed. [email or web address] [address], [place], [address], 03/08/2025 16:22:05 04/28/20 25 04/28/2025 US, obste tric, 2nd or 3rd trime ster No observ ation record ed. [email or web address] [place] [address], [place], [address], 04/28/2025 18:35:16 04/28/20 25 04/28/2025 US, obste tric, 2nd or 3rd trime ster No observ ation record ed. [email or web address] [address], [place], [address], 04/28/2025 14:33:42 Result Notes None recorded. Problems Name Problem SNOMED Code Status Onset Date Resolution Date Notes Provider Name and Address Organization Details Recorded Time History of chlamydi al infectio n [id number] Completed chl neg John Marquez [facility] [place] - [facility] 15:43:29 Low-lyin g placenta 256898281 Completed resolved Sakina Cantrell CNM [address], [place], [address], [facility] 4 12:41:38 Pregnanc y 72780685 Completed 202310/27/2024 Bree Nevarez null, [facility] 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 4 17:47:43 Mixed anxiety and depressi ve disorder 211383269 Active 2023 Corine Novak null, [facility] 4 12:29:58 Pregnanc y 03435942 Active 2024 Bree Geri null, [facility] 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 5 13:19:25 Problem Notes None recorded. Procedures Surgical History Date Name Laterality Status Provider Name and Address Organization Details Recorded Time 02/19/20 24 Date of Last Pap Smear completed Corine Novak [facility] 02/19/2024 15:34:35 12/26/19 23 Nexplanon Removal completed Jacey Chavez BENNY- [address], [place], [address], [facility] 12/25/2022 15:19:15 09/07/19 23 Control Implant Insertion completed Jacey Chavez [facility] [address], [place], [address], [facility] 09/07/2022 14:46:07 08/05/19 11 Tonsillectomy completed Corine Novak [facility] 10/17/2023 12:48:17 Imaging Results None recorded. Procedure Notes None recorded. Medical Equipment None Reported. Allergies Allergen ID Allergen Name Allergen Category Reaction Reaction Severity Criticality Documentation Date Start Date Code Code System Note Provider Name and Address Organization Details Recorded Time [address] [facility] Not available Not available Not available 04/01/20242001 RxNorm Corine Novak [facility], [facility] 18:25:07 Medications Name Sig Start Date Stop Date Status Note LastModified by Organization Details LastModified Time tretinoin 0.1 % topical cream 07/14 completed Not Available Not Available Not Available amoxicillin 500 mg capsule Take 1 capsule every 12 hours by oral route for 7 days. 03/19 completed Not Available Not Available Not Available [...] completed Not Available Not Available Not Available Diflucan 150 mg tablet Take 1 tablet by oral route for 2 days. 03/19 completed Not Available Not Available Not Available triamcinolo ne acetonide 0.5 % topical ointment APPLY A THIN LAYER TO THE AFFECTED AREA(S) BY TOPICAL ROUTE 2 TIMES PER DAY x 7 days PRN 04/11 completed Not Available Not Available Not Available metronidazo le 500 mg tablet Take 1 tablet twice a day by oral route for 7 days. 03/05 completed Not Available Not Available Not Available [...] completed Not Available Not Available Not Available Se-Kwasi 19 29 mg iron-1 mg tablet 10/16 completed Not Available Not Available Not Available Vitals Date Recorded Body height Body mass index (BMI) Body weight Systolic And Diastolic Provider Name and Address Organization Details Last Updated DateTime 03/05/2025 162.56 cm 19.2 kg/m2 35952.35 g 112/62 mm[Hg] Bree Nevarez [place] - [facility] 03/05/2025 12:20:29 Date Recorded Body weight Systolic And Diastolic Provider Name and Address Organization Details Last Updated DateTime 03/10/2025 15277.62456 g 106/63 mm[Hg] Bree Geri [facility] 03/10/2025 12:11:58 Date Recorded Body height Body mass index (BMI) Body weight Systolic And Diastolic Provider Name and Address Organization Details Last Updated DateTime 04/28/2025 162.56 cm 19.7 kg/m2 99815.12 g 115/62 mm[Hg] Bree Nevarez [facility] 04/28/2025 12:39:48 Social History Question Answer Notes LastModified by Organizat ion Details LastModified Time Tobacco Smoking Status Never Smoker Sharon Hickeydiana vargas [facility] 05/01/2023 15:09:00 If You Are , [...] COVID-19 While That Case Was Ill? No [email or web address] Information n ot available 07/14/2021 In The 14 Days Before Symptom Onset, Have You Had Close Contact With A Person Who Is Under Investigation For COVID-19 While That Person Was Ill? No [email or web address] Information not available 07/14/2021 Have You Been To An Area Known To Be High Risk For COVID-19? No [email or web address] Information not available 07/14/2021 Are You Deaf Or Do You Have Serious Difficulty Hearing? No Information not available 03/15/2021 What Type Of Diet Are You Following? REGULAR Information n ot available 03/15/2021 Do You Use Your Seat Belt Or Car Seat Routinely? Yes Information not available 03/15/2021 Are You Sexually Active? Yes [email or web address] Information not available 05/01/2023 Do You Have Smoke And Carbon Monoxide Detectors In Your Home? Yes Information not available 03/15/2021 Do You Use Sunscreen Routinely? Yes Information not available 03/15/2021 Has Tobacco Cessation Counseling Been Provided? No Information not available 05/01/2023 Do You Have Difficulty Walking Or Climbing Stairs? No [email or web address] Information not available 05/01/2023 Sex: Unknown Functional Status Question Answer Note LastModified by Organizat ion Details LastModified Time Do you use any illicit or recreational drugs? Yes marijuana [email or web address] Information not available 02/19/2024 Do you or have you ever used any other forms of tobacco or nicotine? Yes [email or web address] Information not available 02/19/2024 What is your level of alcohol consumption? None Information not available 03/15/2021 Are you able to walk independently without assistance or assistive devices? [email or web address] Information not available 03/15/2021 Are you able to care for yourself independently? Yes [email or web address] Information not available 05/01/2023 Do you have difficulty dressing, bathing, grooming, or toileting? No [email or web address] Information not available 05/01/2023 Do you or have you ever used e-cigarettes or vape? Current user of electronic cigarettes Information not available 02/19/2024 What is your exercise level? None Information not available 03/15/2021 Mental Status Question Answer Note LastModified by Organization D etails LastModified Time Do you feel stressed (tense, restless, nervous, or anxious, or unable to sleep at night)? [id number] Information not available 03/15/2021 Family History Relationship [...] Control Method LMP Unknown Obstetrics History GPAL:G 2 P 1 0 0 1 Type Value Full Term 1 Living 1 Total 2 Past Encounters Encounter ID Performer Location Encounter Start Date Encounter Closed Date Diagnosis/Indication Diagnosis SNOMED-CT Code Diagnosis ICD10 Code Diagnosis IMO Codes Diagnosis Note [id number] Jacey Chavez , [facility] [address],[place] [address] 03/15/2021 10:56:15 03/15/2021 11:58:21 Cystic acne 82515072 L70.0 N92.0 Discussed all control options in [...] or sooner if questions Gynecologi c examination 51502568 Z01.419 Take Calcium with Vitamin D 1200mg [...] screen today but will consider moving forwards. [id number] Sakina Cantrell [facility] [address],[place] [address] 07/14/2021 10:04:12 07/14/2021 11:55:46 Acne 29446715 L70.9 [facility] ion care management 992639381 Z30.9 [id number] Jacey Chavez [facility] [address],[place] [address] 08/30/2021 09:26:58 08/30/2021 13:38:10 Vaginitis 54202310 N76.0 Today we agreed to treatment and [...] this patient s visit, including available hand sizing end bander upon arrive, deepthi e check and being asked a series of screening questions. All staff wore face coverings during this encounter, as well as provided additional cleaning and sanitizing of all surfaces, including countertop s, pens, chairs, door handles, light switches, etc, prior to and following the patient s visit. [id number] BALAJI Boo [place] [address] [address] 03/20/2022 11:08:37 03/20/2022 12:30:57 Irregular periods 77214401 N92.6 Venereal d isease screening 285513725 Z11.3 Sexually t ransmitted infectious disease 5853230 A64 Vaginitis 82104235 N76.0 Urine hcg (-) today, patient request [...] counseling and review of plan of care. [id number] BALAJI Boo [place] [address] [address] 04/11/2022 10:04:33 04/11/2022 11:47:18 Lesion of vulva 345056837 N90.89 Lesion highly suspicious for HSV infection, [...] plan of care. Contracept ion care management 248434975 Z30.9 Venereal d isease screening 010895464 Z11.3 [id number] Jacey Chavez [facility] [address],[place] [address] 09/06/2022 16:53:35 09/06/2022 17:13:39 Contraception care management 065108182 Z30.9 Discussed all control options in depth [...] counseling and review of plan of care. [id number] Jacey Chavez [facility] [address],[place] [address] 09/07/2022 14:11:06 09/07/2022 15:29:09 Implantation of subcutaneous contraceptive 950378356 Z30.9 Patient is here currently on her [...] 3mos med check or sooner if needed [id number] Jacey Chavez [facility] [address],[place] [address] 11/21/2022 15:04:09 11/21/2022 17:23:09 Venereal disease screening 083640374 Z11.3 STD screen swab updatedSTD serum panel updatedNew sexual partnerWil l contact with results Time spent in visit is a total of 15 mins with at least 50% of visit consisting of counseling and review of plan of care. Abnormal u terine bleeding 4126698106 9100 N93.9 UPT negIf continues consider course of estradiol 1mg x 20 days.Under stands that this can be normal 3-6mos with initiation of nexplanon. Will update us Sexually t ransmitted infectious disease 8842832 A64 [id number] Jacey Chavez [facility] [address],[place] [address] 12/25/2022 14:42:59 12/25/2022 15:32:53 Venereal disease screening 545887809 Z11.3 Here today for JARAD.Took all abxPartner treatedUri ne JARAD sentNEg sxs Time spent in visit is a total of 10 mins with at least 50% of visit consisting of counseling and review of plan of care.Not including time spent on procedure. Removal of subcutaneous contraceptive 674575484 Z30.46 Removal site was cleansed with betadine and 3cc of lidocaine used for anesthesia . Device was removed in normal fashion without difficulty . Steri stips and pressure bandage placed. Opts to use CondomsUnd erstands there is no contracept ion (unless uses condoms) once device is removed.Un derstandin g verbalized . [id number] Jacey Chavez [facility] [address],[place] [address] 04/24/2023 15:42:02 04/25/2023 12:38:44 Easy bruising 777225687 R58 Today we discussed updating lab work [...] review of plan of care. Cystic acne 30607355 L70 .0 N92.0 Consider derm referral if neeeded [id number] Jacey Chavez [facility] [address],[place] [address] 05/01/2023 15:08:53 05/02/2023 16:57:16 Cystic acne 61954047 L70.0 N92.0 Today we agreed to consider [...] counseling and review of plan of care. [id number] BALAJI [facility] [address] [address] 06/19/2023 09:20:29 06/19/2023 09:55:28 Furuncle of vulva 483832449 N76.4 Boils on vulva found on exam [...] plan of care. Reproducti ve care management 680217118 Z31.9 Trying to conceiveWi ll start PNV Counseled on reproducti ve timeline, signs/sx's . [id number] Jones Koenig MD [place] [address] [address] 10/17/2023 12:37:37 10/17/2023 13:41:58 Abnormal uterine bleeding 6699285536 9100 N93.9 23-year-ol d patient with abnormal [...] was counseling . Disorder o f menstruation 140928149 N92.6 [id number] Jones Koenig MD [place] [address],[place] [address] 10/28/2023 14:29:56 10/28/2023 15:30:52 Abnormal uterine bleeding 3721960868 9100 N93.9 23-year-ol d patient with abnormal [...] ce. More than 50% was counseling . [id number] Jones Koenig MD [place] [address],[place] [address] 10/28/2023 15:18:58 10/28/2023 16:39:54 Abnormal uterine bleeding 0327697274 9100 N93.9 this patient is a 23-year-ol [...] More than 50% was counseling . [id number] MD Noemi Lynch [address],[place] [address] 02/19/2024 14:52:45 02/19/2024 15:21:14 Uterine size for dates discrepancy 581747669 O26.841 Z3A.01 [id number] [facility] [address],[place] [address] 02/19/2024 14:52:59 02/19/2024 16:08:22 Amenorrhea 58799279 N91.2 +UPTcontin ue PNVplan 12 week NIPS and new obpap collected Gynecologi c examination 30179259 Z01.419 Nausea and vomiting 1693 1999 R11.2 [id number] Jones Koenig MD [place] [address],[place] [address] 04/01/2024 17:27:04 04/02/2024 07:54:22 screening 752137222 Z36.82 Z3A.12 [id number] Sakina Cantrell CNM [place] [address],[place] [address] 04/01/2024 17:27:30 04/02/2024 17:31:29 Gestation period, 12 weeks 83917731 Z3A.12 continue vitamin [id number] Sakina Cantrell CNM [place] [address],[place] [address] 04/29/2024 16:22:12 04/29/2024 16:50:41 Gestation period, 16 weeks 30873592 Z3A.16 continue vitamin Anxiety 54255191 F41.9 start zoloft 25 mg daily, if any suicidal thoughts to edse risks and benefitsf/ u 4 weeks or sooner if neededmay have reglan if calls [id number] Jones Koenig MD [place] [address],[place] [address] 05/26/2024 14:35:17 05/26/2024 17:52:03 screening for malformation 354149256 Z36.3 Z3A.20 [id number] [facility] [address],[place] [address] 05/27/2024 17:14:49 05/28/2024 10:29:26 Gestation period, 20 weeks 46703567 Z3A.20 Anxiety 32274315 F41.9 continue zoloft 25 mg daily, if any suicidal thoughts to edse risks and benefitsf/ u 4 weeks or sooner if neededmay have reglan if calls [id number] Jones Koenig MD [place] [address],[place] [address] 06/24/2024 11:40:27 06/24/2024 12:37:10 Low-lying placenta 618892865 O44.42 Z3A.24 [id number] Sakina Cantrell CNM [place] [address],[place] [address] 06/24/2024 11:41:44 06/24/2024 12:43:47 Gestation period, 24 weeks 982926002 Z3A.24 [id number] Skaina Cantrell CNM [place] [address],[place] [address] 07/31/2024 11:09:29 07/31/2024 11:59:32 Gestation period, 29 weeks 60577215 Z3A.29 [id number] Jones Koenig MD [place] [address],[place] [address] 08/12/2024 09:12:24 08/12/2024 10:05:14 Uterine size for dates discrepancy 037957220 O26.843 Z3A.31 [id number] [facility] [address],[place] [address] 08/12/2024 09:12:58 08/12/2024 10:58:29 Gestation period, 31 weeks 36427746 Z3A.31 [id number] [facility] [address],[place] [address] 08/26/2024 15:22:41 08/26/2024 16:03:35 Gestation period, 33 weeks 50453295 Z3A.33 Infection of tooth 15191 8007 K04.7 606108 Sakina Cantrell [facility] [address],[place] [address] 09/09/2024 14:13:46 09/09/2024 14:53:11 Gestation period, 35 weeks 12277223 Z3A.35 [id number] Jones Koenig MD [place] [address],[place] [address] 09/16/2024 13:54:55 09/16/2024 14:31:09 Low maternal weight gain 93662370 O26.13 Z3A.36 [id number] Sakina Cantrell [facility] [address],[place] [address] 09/16/2024 13:55:25 09/16/2024 15:17:37 Gestation period, 36 weeks 18368853 Z3A.36 Anxiety 85946356 F41.9 [id number] [facility] [address],[place] [address] 09/23/2024 14:14:35 09/23/2024 14:44:24 Gestation period, 37 weeks 07807335 Z3A.37 [id number] [facility] [address],[place] [address] 09/30/2024 13:57:10 09/30/2024 14:34:28 Gestation period, 38 weeks 71657229 Z3A.38 [id number] [facility] [address],[place] [address] 2024 17:17:21 10/04/2024 23:16:42 Abdominal pain in 837486677 O99.891 [id number] Sakina Cantrell [facility] [address],[place] [address] 10/07/2024 09:37:07 10/07/2024 10:22:59 Gestation period, 39 weeks 56898731 Z3A.39 [id number] Sakina Cantrell [facility] [address],[place] [address] 10/23/2024 15:14:56 10/23/2024 15:47:27 Constipation 93016851 K59.00 continue miralax, d/c iron, ok for gummy vitamin f/u visit Hemorrhoids 40216701 K64 .9 [id number] Sakina Cantrell [facility] [address],[place] [address] 11/11/2024 12:20:06 11/11/2024 13:36:07 Alopecia 00014553 L65.9 Fatigue 34130365 R53.83 care 44917767 8 Z39.2 [id number] Jones Koenig MD [place] [address],[place] [address] 01/06/2025 11:46:15 01/06/2025 13:27:48 Finding of menstrual bleeding 367037978 Z36.87 Z3A.01 985003 [id number] Jones Koenig MD [place] [address],[place] [address] 01/29/2025 10:59:18 01/29/2025 11:29:28 [id number] [facility] [address] [place] [address] 01/29/2025 10:59:36 01/29/2025 12:07:32 Mixed anxiety and depressive disorder 443631505 F41.8 3060027 Amenorrhea 76191030 N91. 2 78611 +UPTcontin ue PNVplan 12 week NIPS and new obpap up to daterefill sertraline [id number] Jones Koenig MD [place] [address],[place] [address] 03/04/2025 11:49:53 03/04/2025 12:33:33 screening 021408877 Z36.82 Z3A.12 5747769895 [id number] Sakina Cantrell [facility] [address],[place] [address] 03/05/2025 11:51:16 03/05/2025 13:26:19 Dental abscess 079238021 K04.7 718593 561024 Sakina Cantrell [facility] [address],[place] [address] 03/10/2025 12:02:00 03/10/2025 12:31:22 Gestation period, 13 weeks 02468212 Z3A.13 4810372 Candidiasis of vagina 72 675944 B37.31 549259 794127 Jones Koenig MD [place] [address],[place] [address] 04/28/2025 11:37:51 04/28/2025 12:54:31 Screening status 419238421 Z36.3 Z3A.20 3863525867 [id number] Sakina Cantrell [place] [address],[place] [address] 04/28/2025 11:39:11 04/28/2025 12:57:05 Gestation period, 20 weeks 04378865 Z3A.20 [id number] Health Concerns Section Related Observation LastModified by Organization Detai ls LastModified Time None Recorded Concern Status LastModified by Organization Details LastModified Time None Recorded Advance Directives Directive None Recorded Payers Insurance Date Sequence Insurance Name Policy Number Policy Shine Covered Member ID Shine Member ID Guarantor Name 04/26/2025 1 LARRYEDY [id number] 1 Cornel Gary [id number] Mae Frances 10/28/2024 1 [facility] - DOS ON OR AFTER 21 (MEDICAID REPLACEMENT - HMO) Mae Frances [id number] Mae Frances 10/28/2024 1 [facility] - DOS ON OR AFTER 21 (MEDICAID REPLACEMENT - HMO) Mae Frances [id number] Mae Sarmientogire 04/05/2025 2 [place] [facility] Mae Frances [id number] Mae Montesinos Allgire 11/06/2024 2 [facility] - DOS ON OR AFTER 21 (MEDICAID REPLACEMENT - HMO) Mae Lopezre [id number] Mae Montesinos Allgire 10/28/2024 1 [facility] - DOS ON OR AFTER 21 (MEDICAID REPLACEMENT - HMO) Mae Frances [id number] Mae Frances Notes Date Note Type Note Provider Name and Address Organization Details Recorded Time 03/05/2025 text/html rescheduled sp out of office Sakina Cantrell CNM [address], [place], [address], [facility] 03/05/2025 13:26:17 04/28/2025 text/html Generic HPI TemplateReported by Patient Sakina Cantrell CNM [address], [place], [address], [facility] 04/28/2025 12:56:38 OBGyn Episode Ob Episode Information Episode Created Date Number of Fetuses Patient Bloodtype Patient rh Status Prepregnancy Weight lbs Domestic Partner Domestic Partner Phone Father Name Meat Service Team Member Status 04/01/20 24 1 A Positive 104 Stan Stephanier d CLOSED Fetus Data First Name Last Name Admitted to NICU Weight (g) Sex Living Outcome Pediatric Complications Fetus ID Race Codes Race Delivery Type M true Full Term 89690 Vaginal Delivery Problems Problem Notes 32wk growth us Problem Name Start Date End Date Resolution Snomed Code Not e History of chlamydial infection 954558736 chl neg Alpha thalassemia 04/16/2024 09794596 s ilent carrier; low risk Low-lying placenta 985032544 r esolved Valerio Calculation Initial Valerio Date [...] Weight in lbs Pre/Post Dialysis Refused Weight 104.954295282370 BP Diastolic BP Location Tested BP Systolic [...] Type Weight in lbs Pre/Post Dialysis Refused 105.543981421794 BP Diastolic BP Location Tested BP Systolic [...] Type Weight in lbs Pre/Post Dialysis Refused 109.117490794268 BP Diastolic BP Location Tested BP Systolic [...] Type Weight in lbs Pre/Post Dialysis Refused 118.610608711469 BP Diastolic BP Location Tested BP Systolic [...] Type Weight in lbs Pre/Post Dialysis Refused 122.340193576549 BP Diastolic BP Location Tested BP Systolic [...] Type Weight in lbs Pre/Post Dialysis Refused 123.839233162856 BP Diastolic BP Location Tested BP Systolic [...] Weight in lbs Pre/Post Dialysis Refused Weight 123.463319192523 BP Diastolic BP Location Tested BP Systolic [...] Weight in lbs Pre/Post Dialysis Refused Weight 125.381993853809 BP Diastolic BP Location Tested BP Systolic [...] Type Weight in lbs Pre/Post Dialysis Refused 126.52310427485 BP Diastolic BP Location Tested BP Systolic [...] Type Weight in lbs Pre/Post Dialysis Refused 127.732512331167 BP Diastolic BP Location Tested BP Systolic [...] Weight in lbs Pre/Post Dialysis Refused Weight 131.824981782410 BP Diastolic BP Location Tested BP Systolic [...] Weight in lbs Pre/Post Dialysis Refused Weight 131.593918831988 BP Diastolic BP Location Tested BP Systolic BP Type 78 131 Fetus Heart Rate Present Fetus Movement Comments Flowsheet Date 10/07/2024 Frias Score Blood Edema Fundus Height Fundus Units Glucose Ketones Leukocytes Nitrite Labor Signs Protein Cervic Dilation Cervic Effacement Cervic Station neg 37 cm Type Weight in lbs Pre/Post Dialysis Refused 130.823519328850 BP Diastolic BP Location Tested BP Systolic [...] Weight in lbs Pre/Post Dialysis Refused Weight 114.327971090637 BP Diastolic BP Location Tested BP Systolic [...] 5 Induce d 40.3 7.46 Sakina Cantrell ROBBY Discharge Information Feeding Method Contraceptive Method Maternal HG B and HCT Levels Ob Episode Information Episode Created Date Number of Fetuses Patient Bloodtype Patient rh Status Prepregnancy Weight lbs Domestic Partner Domestic Partner Phone Father Name Meat Service Team Member Status 02/25/20 25 1 A Positive 111 OPEN Fetus Data First Name Last Name Admitted to NICU Weight (g) Sex Living Outcome Pediatric Complications Fetus ID Race Codes Race Delivery Type 13426 Problems Problem Notes +THC in urine Problem Name Start Date End Date Resolution 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 151106 03 + 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 2023 Valerio Calculation Initial Valerio Date Initial Exam Date Initial Exam Provider Initial Ultrasound Date Last Menstrual Period Date Ultra Sound Weeks Gestation 09/10/2025 02/24/2025 08/05/2019 8 Eighteen To Twenty Week Valerio Update Ultra Sound Date Fundal Height At Umbil Quickening Date Ultra Sound Latest Weeks Gestation Final Valerio Confirmed By Final Valerio Confirmed Date Final Valerio Date Ultra Sound Latest Days Gestation 0 0 Pre- Flowsheet Flowsheet Date 03/04/2025 Frias Score Blood Edema Fundus Height Fundus Units Glucose Ketones Leukocytes Nitrite Labor Signs Protein Cervic Dilation Cervic Effacement Cervic Station Type Weight in lbs Pre/Post Dialysis Refused BP Diastolic BP Location Tested BP Systolic BP Type Fetus Heart Rate Present Fetus Movement Comments Flowsheet Date 03/05/2025 Frias Score Blood Edema Fundus Height Fundus Units Glucose Ketones Leukocytes Nitrite Labor Signs Protein Cervic Dilation Cervic Effacement Cervic Station Type Weight in lbs Pre/Post Dialysis Refused Weight 112.986893882809 BP Diastolic BP Location Tested BP Systolic BP Type 62 R arm 112 sitting Fetus Heart Rate Present Fetus Movement A No Comments Flowsheet Date 03/10/2025 Frias Score Blood Edema Fundus Height Fundus Units Glucose Ketones Leukocytes Nitrite Labor Signs Protein Cervic Dilation Cervic Effacement Cervic Station Type Weight in lbs Pre/Post Dialysis Refused 113.355380824997 BP Diastolic BP Location Tested BP Systolic BP Type 63 L arm 106 sitting Fetus Heart Rate Present Fetus Movement A Yes Comments reviewed US, sp was at [facility], appt got rescheduledpt has hx of uncomplicated vaginal delivery x 1, doing well, will send out diflucan for yeast sxs. begine routine care. +fhr by US Flowsheet Date 04/28/2025 Frias Score Blood Edema Fundus Height Fundus Units Glucose Ketones Leukocytes Nitrite Labor Signs Protein Cervic Dilation Cervic Effacement Cervic Station Type Weight in lbs Pre/Post Dialysis Refused BP Diastolic BP Location Tested BP Systolic BP Type Fetus Heart Rate Present Fetus Movement Comments Flowsheet Date 04/28/2025 Frias Score Blood Edema Fundus Height Fundus Units Glucose Ketones Leukocytes Nitrite Labor Signs Protein Cervic Dilation Cervic Effacement Cervic Station Type Weight in lbs Pre/Post Dialysis Refused Weight 115.627783961390 BP Diastolic BP Location Tested BP Systolic BP Type 62 L arm 115 sitting Fetus Heart Rate Present Fetus Movement A Yes Comments anatomy complete LVEIF faint , nipt wnl will rpt in4 weeks, precautions and education f/u 4 weeks Menstrual History Last Menstrual Date Menses Monthly On Bcp Conception Prior Menses Frequency Hcg Plus Date Menarche Onset Age false false Delivery Information Delivery Date Delivery Type Labor Anesthesia Weeks Gestation Incision Type Labor Labor Length Hrs Delivered By Post Complications Tubal Sterilization Discharge Date Comments Discharge Information Feeding Method Contraceptive Method Maternal HG B and HCT Levels
--- OUTSIDE RECORDS SUMMARY | 2025-05-20 20:50 | XMS_ITS | Encounter Summary ---
Author Organization [facility] Address 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
--- OUTSIDE RECORDS SUMMARY | 2025-05-20 20:50 | XMS_ITS | Encounter Summary ---
Author Organization [facility] Address [address] [place] [address] Care Team Providers Care Research Coordinator Name Role Phone Unavailable Primary Care Provider Unavailabl e Encounter Details Date Type Department Care Team (Late st Contact Info) Description 2002 Outpatient Historical [facility] - [facility] [address] [address] Rodger Verma MD [id number] [place] [address] Social History Tobacco Use Types Packs/Day Years Used Date Smoking Tobacco: Never Assessed Comments Unknown Sex and Gender Information Value Date Recorded Sex Assigned at Not on file 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
--- OUTSIDE RECORDS SUMMARY | 2025-05-20 20:50 | XMS_ITS | Patient Health Record ---
Author Organization [facility] Address [address] [place] [address] Care Team Providers Care Shellfish Weigher Name Role Phone Cesilia Ibanez Primary Care Provider [phone] Cesilia Ibanez Unavailable [phone] Allergies Allergen (clinical drug ingredient) Drug/Non Drug [...] Risk Notes Problem Attention deficit hyperactivity disorder (906432068) ADHD (attention deficit hyperactivity disorder) (F90.9) Active confirmed Problem Mixed bipolar I disorder (07105701) Bipolar 1 disorder, mixed (F31.60) Active confirmed Rule out Problem Disruptive mood dysregulation disorder (720053119) DMDD (disruptive mood dysregulation disorder) (F34.81) Active confirmed Plan Of Treatment No Information Insurance Providers Payer Name Payer Address Payer Phone Subscriber Number Group Number Insured Name Patient Relationship to Insured Coverage Start Date Coverage End Date [facility] Att Claims Department [address] [place] [address] [id number] Mae Frances Self - patient is the insured 9 [employer] Attn Claims Department [address] [place] [address] [phone] [id number] Mae Frances Self - patient is the insured 1 Medical (General) History Surgical History Surgery Date(Month/Year) Hospitalization History Reason Date(Month/Year)
--- OUTSIDE RECORDS SUMMARY | 2025-05-20 20:50 | XMS_ITS | Clinical Summary ---
Author Organization [facility] Address [address] [place] [address] Care Team Providers Care Staying Machine Operator Name Role Phone No, Physician Primary Care Provider [phone] Allergies Active Allergy Reactions Criticality Noted Date [...] on file Legal Sex Female 7:24 PM OFFICE SPEC Gender Identity Not on file Sexual Orientation [...] 10/28/2003 HPV Vaccines Completed 05/28/2018, 08/22/2016 Insurance [facility] Care Teams Staying Machine Operator Relationship Specialty Start Date End Date No, Physician PCP - General 04/16/24
--- OUTSIDE RECORDS SUMMARY | 2025-05-20 22:38 | XMS_ITS | Clinical Summary ---
Author Organization [facility] Address [address] [place] [address] Care Team Providers Care Hardwood Floor Installation Helper Name Role Phone No, Physician Primary Care Provider [phone] Allergies Active Allergy Reactions Criticality Noted Date [...] on file Legal Sex Female 7:24 PM MEDICAL TRANSPORT SPECIALIST Gender Identity Not on file Sexual [...] 10/28/2003 HPV Vaccines Completed 05/28/2018, 08/22/2016 Insurance [facility] Care Teams Hardwood Floor Installation Helper Relationship Specialty Start Date End Date No, Physician PCP - General 04/16/24
--- OUTSIDE RECORDS SUMMARY | 2025-05-20 22:38 | XMS_ITS | Encounter Summary ---
Author Organization [facility] Address 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
--- OUTSIDE RECORDS SUMMARY | 2025-05-20 22:38 | XMS_ITS | Encounter Summary ---
Author Organization [facility] Address [address] [place] [address] Care Team Providers Care Cinder Block Mason Name Role Phone Unavailable Primary Care Provider Unavailabl e Encounter Details Date Type Department Care Team (Latest Contact Info) Description [address] 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
--- OUTSIDE RECORDS SUMMARY | 2025-05-20 22:38 | XMS_ITS | Clinical Summary ---
Author Organization [facility] Address [address] [place] [address] Care Team Providers Care Resource Analyst Name Role Phone None, Physician Primary Care Provider Unavailabl e Source Comments [facility],non-owned Affiliates and Associated Physician Practices is amultiple site organization consisting of ambulatory clinics and hospital sitesin [place], [place], [place] and [place]. This disclosure is being madepursuant to the Care Everywhere program and may not contain all information available regarding this patient. Last updated 18.[facility] [employer] Allergies Active Allergy Reactions Criticality Noted Date [...] as an outpatient with Dr[facility] L[facility] Constipation, unspecified constipation type 01/03 [...] 09/17/2018 Assessment & Plan (09/17/2018 8:55 PM ONCOLOGY RESEARCH RN): 17 y.o. F with DMDD, Bipolar disorder [...] F/u with [facility] on Saturday Jade, Target Protection Specialist at [facility] [phone]) Counseling regarding goals of care 01/28/2012 Overview [...] several weeks. If unable to transfer to [facility] directly will send patient home [...] Overview (03/26/2012): Followed by Dr. Nilsa Rivera @[phone], ALT# [phone]. Spoken to during the 01/24 admission to [...] therapist until a bed is available at [facility]. 03/24/[address] Nilsa Rivera @[phone], ALT# [phone], Psychiatrist taking care of Mae. She informed [...] bloody bowel movements. Social/Behavioral for placement at [facility] was explored but no bed was [...] on file Legal Sex Female 5:44 AM ONCOLOGY RESEARCH RN Gender Identity Not on file Sexual [...] patient's age to complete this topic [place] [address] [place] [address] [place] [id number] [facility] Member Subscriber Plan / Payer (Ef fective 2019-Present) Name:Mae Frances Relation to Subscriber:Self Name:Mae Frances Payer ID:[id number] (NAIC) Group ID:Not on file Type:Medicaid Managed Care Address: ATTN CLAIMS DEPARTMENT [place] [id number] Advance Directives * Full Code (Latest Code Status on File) Date Activated Date Inactivated Comments 01/15/2023 12:15 AM 01/16/2023 3:33 PM Care Teams Resource Analyst Relationship Specialty Start Date End Date None, Physician [address] [place] [address] PCP - General 03/25/23
--- OUTSIDE RECORDS SUMMARY | 2025-05-20 22:38 | XMS_ITS | Encounter Summary ---
Author Organization [facility] Address [address] [facility] [address] [facility] Attn: [place] [address] Care Team Providers Care Tour Agent Name Role Phone Unavailable Primary Care Provider Unavailabl e Encounter Details Date Type Department Care Team (Late st Contact Info) Description 2002 Inpatient Historical [place], Rodger Carter MD [address] [facility] [place] [address] Sakina Stoddard MD [address] [facility] [address] [place] [address] SINGL BORN IN HOSP-NO C/DELIVERY (Primary Dx) Social History Tobacco Use Types Packs/Day Years Used Date Smoking Tobacco: Never Assessed Comments Unknown Sex and Gender Information Value Date Recorded Sex Assigned at Not on file 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
--- OUTSIDE RECORDS SUMMARY | 2025-05-20 22:38 | XMS_ITS | Encounter Summary ---
Author Organization [facility] Address [address] [place] [address] Care Team Providers Care Machine Tool Operator Name Role Phone Unavailable Primary Care Provider Unavailabl e Encounter Details Date Type Department Care Team (Late st Contact Info) Description 2002 Outpatient Historical 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
--- OUTSIDE RECORDS SUMMARY | 2025-05-20 22:38 | XMS_ITS | Encounter Summary ---
Author Organization [facility] Address [address] [place] [address] Care Team Providers Care Quitline Counselor Name Role Phone Unavailable Primary Care Provider Unavailabl e Encounter Details Date Type Department Care Team (Late st Contact Info) Description 2002 Outpatient Historical [facility] - [facility] [address] [address] Rodger Verma MD [id number] [place] [address] Social History Tobacco Use Types Packs/Day Years Used Date Smoking Tobacco: Never Assessed Comments Unknown Sex and Gender Information Value Date Recorded Sex Assigned at Not on file 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
[2025-05-20] MEDS: CLINDAMYCIN HCL 150 MG CAP 300 MG PO (22:46)
--- NOTE | 2025-05-20 22:51 | ED.DENTAL ---
HPI - Dental/Oral General Chief complaint: Dental/Oral Stated complaint: dental pain Time Seen by Provider: 05/20/25 22:12 Source: patient Mode of arrival: ambulatory Limitations: no limitations History of Present Illness HPI Narrative: Patient is a 24-year-old female who presents the ED with report of dental pain. Patient reports having pain throughout her left posterior lower molar, tooth 17 for the past several days. Was seen at an urgent care on Saturday and prescribed amoxicillin. Reports she has not had any improvement of symptoms. Has been taking Tylenol without improvement. Also reports having sinus drainage, congestion, mild cough. Denies fevers. Related Data Home Medications ?Medication ?Instructions ?Recorded ?Confirmed ?Last Taken ?Type vitamins no.119-iron 1 tablet PO DAILY 03/30/24 11/12/24 09/19/24 History fumarate 29 mg-folic acid 1 mg tablet (Se-Kwasi 19) sertraline 25 mg tablet 25 mg PO DAILY 09/19/24 11/12/24 09/19/24 History Allergies Allergy/AdvReac Type Severity Reaction Status Date / Time carbamazepine Allergy Intermediate Rash Verified 03/25/25 09:41 Review of Systems Review of Systems: All systems reviewed & are unremarkable except as noted in HPI. All systems reviewed & are unremarkable except as noted in HPI and below PMFSH Past Medical History Medical History COVID-19 History of iron deficiency anemia Sinusitis chronic, frontal Sensory disorder Bipolar disorder Surgical History Surgical History History of tonsillectomy Family History Family History Other No significant family history Social History Social History Smoking status: Current every day smoker Tobacco type: e-cigarettes/vaping Additional smoking assessment comments: marijuana for nausea Alcohol intake: never Substance use: never Substance use type: marijuana Do You Feel Safe in your Home?: No Lack of Transportation: No Lack of Food: Never True Current Housing: I Have Housing Concerned About Future Housing: No Difficulty Paying Gas/Electric Bills: No Difficulty Paying for Meds: No Currently Unemployed: No Education: High School Diploma/GED Difficulty w/ Childcare or Family Care: No Living arrangements: with family Occupation/Education: student Gender identity (if verbalized by the patient): Female Spiritual care concerns: No Exam Narrative: GENERAL: Well appearing, thin, non-toxic, in no acute distress. HEAD: Normocephalic, atraumatic. ENT: Fractured tooth #17, with mild tenderness along gumline surrounding tooth. No focal fluctuance. No drainage. No stridor or trismus. No significant posterior pharynx erythema. No tonsillar hypertrophy or exudate. RESPIRATORY: Airway patent, respirations nonlabored CARDIOVASCULAR: Regular rate and rhythm MUSCULOSKELETAL: Moves all extremities. No gross deformities. SKIN: Warm, dry, normal color. NEURO: A&O X3. Speech clear. PSYCHIATRIC: Appropriate mood and affect. Normal interaction. Course Vital Signs Vital signs: Vital Signs Temperature 97.6 F 05/20/25 20:50 Pulse Rate 106 H 05/20/25 20:50 Respiratory Rate 20 05/20/25 20:50 Blood Pressure 119/72 05/20/25 20:50 Pulse Oximetry 97 05/20/25 20:50 Temperature 97.6 F 05/20/25 20:50 Pulse Rate 106 H 05/20/25 20:50 Respiratory Rate 20 05/20/25 20:50 Blood Pressure 119/72 05/20/25 20:50 Pulse Oximetry 97 05/20/25 20:50 MDM - Dental/Oral MDM Narrative Medical decision making narrative: Patient's pain is consistent with dental caries. There are no focal signs of space-occupying abscess. The patient is controlling secretions well without signs of airway compromise. Will transition from amoxicillin to clindamycin as patient denying improvement with amoxicillin. Advised to continue Tylenol as needed. Patient is felt reasonable for outpatient follow-up with dental evaluation. Patient also reporting URI symptoms. Requested COVID/influenza testing. This was obtained. Patient would like to be discharged and follow-up with her results on the patient portal. In no acute distress and without systemic signs of infection to suggest need for further labs or imaging at this time. Given return precautions. Discharged in stable condition. Medical Records Attestation: I reviewed the patient's medical records. Lab Data Attestation: I reviewed the patient's lab results. Labs: Lab Results 05/20/25 Range/Units 22:46 Influenza A (RT-PCR) Pending Influenza B (RT-PCR) Pending RSV (RT-PCR) Pending SARS-CoV-2 RNA (RT-PCR) Pending Discharge Plan Discharge Clinical Impression: Toothache, 23 weeks gestation of Upper respiratory infection Qualifiers: URI type: unspecified URI Qualified Code(s): J06.9 - Acute upper respiratory infection, unspecified Patient Disposition: Home Condition: Stable Instructions: Antibiotic Form, Upper Respiratory Infection (ED), Toothache (ED) Additional Instructions: Take antibiotics as prescribed for dental infection. Follow-up with dentist for further evaluation. Continue Tylenol, ice as needed for pain. Return for new or worsening concerns. Patient Language: Sammarinese Prescriptions: New clindamycin HCl [Cleocin HCl] 300 mg capsule 300 mg PO Q6H 7 Days Qty: 28 0RF No Action Se-Kwasi 19 29 mg iron- 1 mg tablet 1 tablet PO DAILY sertraline 25 mg tablet 25 mg PO DAILY promethazine 25 mg suppository 25 mg RECTAL Q6H PRN (Reason: nausea and vomiting) Qty: 12 0RF cephalexin 500 mg capsule 500 mg PO Q12H 7 Days Qty: 14 0RF metoclopramide HCl 5 mg tablet 5 mg PO Q8H PRN (Reason: nausea and vomiting) Qty: 10 0RF Follow-up/Referrals: Sakina Cantrell CNM [Primary Care Provider, PICKLE WATER PUMP OPERATOR] Time of Disposition: 22:55
[2025-05-20 23:44] LABS: Influenza A QL RT-PCR Negative (Negative); Influenza B QL RT-PCR Negative (Negative); RSV RNA, RT-PCR Negative (Negative); SARS-CoV-2 RNA PCR Negative (Negative)
== END 2025-05-20 23:07 | disposition home or self-care (01) ==
PROVIDERS: Emergency Provider Physician Assistant; PCP Advanced Practice Midwife
DX: O99.612 Diseases of the digestive system complicating pregnancy, second trimester (principal); K08.89 Other specified disorders of teeth and supporting structures; O99.512 Diseases of the respiratory system complicating pregnancy, second trimester; J06.9 Acute upper respiratory infection, unspecified; Z20.822 Contact with and (suspected) exposure to COVID-19; J32.1 Chronic frontal sinusitis; O99.342 Other mental disorders complicating pregnancy, second trimester; F31.9 Bipolar disorder, unspecified; O99.332 Smoking (tobacco) complicating pregnancy, second trimester; F17.290 Nicotine dependence, other tobacco product, uncomplicated; Z86.16 Personal history of COVID-19; Z86.2 Personal history of diseases of the blood and blood-forming organs and certain disorders involving the immune mechanism; Z3A.23 23 weeks gestation of pregnancy; Z79.899 Other long term (current) drug therapy
CPT/HCPCS: 87637; 99283

== ENCOUNTER 2025-06-14 12:48 | Observation (INO) | payer BC, MEDICAID, SELFPAY ==
--- OUTSIDE RECORDS SUMMARY | 2025-06-14 13:08 | XMS_ITS | Encounter Summary ---
Author Organization [facility] Address [address] [place] [address] Care Team Providers Care Mill Washer Name Role Phone Unavailable Primary Care Provider Unavailabl e Encounter Details Date Type Department Care Team (Late st Contact Info) Description 2002 Outpatient Historical [facility] Pediatrics - [facility] [address] [address] Radhika Emmanuel MD NO ADDRESS ON FILE Social History Tobacco Use Types Packs/Day Years Used Date Smoking Tobacco: Never Assessed Comments Unknown Sex and Gender Information Value Date Recorded Sex Assigned at Not on file 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
--- OUTSIDE RECORDS SUMMARY | 2025-06-14 13:08 | XMS_ITS | Encounter Summary ---
Author Organization [facility] Address 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
--- OUTSIDE RECORDS SUMMARY | 2025-06-14 13:08 | XMS_ITS | Encounter Summary ---
Author Organization [facility] Address [address] [place] [address] Care Team Providers Care Tool Filer Hand Name Role Phone Unavailable Primary Care Provider Unavailabl e Encounter Details Date Type Department Care Team (Late st Contact Info) Description 2002 Outpatient Historical [facility] Pediatrics - 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
--- OUTSIDE RECORDS SUMMARY | 2025-06-14 13:08 | XMS_ITS | Clinical Summary ---
Author Organization [facility] Address [address] [place] [address] Care Team Providers Care Acid Leveler Name Role Phone None, Physician Primary Care Provider Unavailabl e Source Comments [facility],non-owned Affiliates and Associated Physician Practices is amultiple site organization consisting of ambulatory clinics and hospital sitesin [place], [place], [place] and [place]. This disclosure is being madepursuant to the Care Everywhere program and may not contain all information available regarding this patient. Last updated 18.[facility] [employer] Allergies Active Allergy Reactions Criticality Noted Date [...] as an outpatient with Dr. Lomas at [facility] Constipation, unspecified constipation type 01/03 Assessment [...] 09/17/2018 Assessment & Plan (09/17/2018 8:55 PM HEAD PUMPER): 17 y.o. F with DMDD, Bipolar disorder [...] F/u with [facility] on Saturday Jade, Prison Psychiatrist at [facility] ([phone]) Counseling regarding goals of care 01/28/2012 Overview [...] weeks. If unable to transfer to [facility] directly will send patient home with close outpatient follow-up with current Psychiatrist, psychiatry, as well as behavior charts and home schedule. Mother stated understanding and voiced agreement. 01/31- No bed available for months at [facility], pending biopsy results, will send patient home with daily bowel regimen, diary, and close out patient follow-up. Behavior disorder 01/25/2012 Overview (03/26/2012): Followed by Dr. Nilsa Rivera @[phone], ALT# [phone]. Spoken to during the 01/24 admission to [...] therapist until a bed is available at [facility]. 03/24/[address] Nilsa Rivera @[phone], ALT# [phone], Psychiatrist taking care of Mae. She informed [...] bloody bowel movements. Social/Behavioral for placement at [facility] was explored but no bed was [...] on file Legal Sex Female 5:44 AM HEAD PUMPER Gender Identity Not on file Sexual Orientation [...] (1 of 2) 2052 HIV SCREENING Completed 11/21/2022 HIB VACCINE Aged Out No longer eligi ble based on patient's age to complete this topic MENINGOCOCCAL GROUPS A/C/Y/W VACCINE Aged Out No longer eligible based on patient's age to complete this topic PNEUMOCOCCAL VACCINE Aged Out No long er eligible based on patient's age to complete this topic Insurance Advance Directives * Full Code (Latest Code Status on File) Date Activated Date Inactivated Comments 01/15/2023 12:15 AM 01/16/2023 3:33 PM Care Teams Acid Leveler Relationship Specialty Start Date End Date None, Physician [address] [place] [address] PCP - General 03/25/23
--- OUTSIDE RECORDS SUMMARY | 2025-06-14 13:08 | XMS_ITS | Encounter Summary ---
Author Organization [facility] Address 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
--- OUTSIDE RECORDS SUMMARY | 2025-06-14 13:08 | XMS_ITS | Clinical Summary ---
Author Organization [facility] Address [address] [place] [address] Care Team Providers Care Tubing Mill Operator Name Role Phone No, Physician Primary Care Provider [phone] Allergies Active Allergy Reactions Criticality Noted Date [...] on file Legal Sex Female 7:24 PM HOME THEATER EXPERT Gender Identity Not on file Sexual Orientation [...] 10/28/2003 HPV Vaccines Completed 05/28/2018, 08/22/2016 Insurance [facility] Care Teams Tubing Mill Operator Relationship Specialty Start Date End Date No, Physician PCP - General 04/16/24
--- OUTSIDE RECORDS SUMMARY | 2025-06-14 13:08 | XMS_ITS | Data Portability ---
Author Organization [facility] Address [address] [place] [address] [place] [address] Assessment Encounter Date Assessment Date Assessment LastModified by Organization Details LastModified Time 04/28/2025 04/28/2025 Patient is _20__weeks . Discussed plan. Not available 04/28/2025 12:54:29 05/28/2025 05/28/2025 Patient is _25__weeks . Discussed plan. [email or web address] Not available 05/28/2025 12:05:52 Plan of Treatment Reminders Order Date Submit Date Provider Last Modified By Organization Details Last Modified Time Details Appointments OB ROUTINE 2024 10:15A M Sakina Cantrell CNM Not available Not available Not available Lab None recorded. Referral None recorded. Procedures None recorded. Surgeries None recorded. Imaging US, obstetric , follow-up 2024 [address]25 [email or web address], [address], [place], [address], 05/28/2025 14:13:06 US, obstetric , 2nd or 3rd trimester 2024 025 [email or web address] [place], [address], [place], [address], 04/29/2025 18:25:28 Medication Orders Diflucan 150 mg tablet 2024 025 [id number], [address] [facility], [place], [place], [id number], 03/19/2025 05:01:42 Patient TargetsNo targets recorded. Patient InstructionsNo instructions recorded. Reason for Referral None Reported. Results Created Date Observation Date Name Description Value Unit Range Abnormal Flag Note LastModifiedBy Organization Detail LastModifiedTime 03/12/2003/12/2025 [UNIT Y] ANEUP LOIDY NIPT fraction 10.3% normal Not Available [facility] [address], [place], [address], 03/12/2025 00:32:43 03/12/20 25 03/12/2025 [UNIT Y] ANEUP LOIDY NIPT 22Q11.2 microdeletio n LOW RISK <1 in 10,000 normal Not Available [facility] [address], [place], [address], 03/12/2025 00:32:43 03/12/20 25 03/12/2025 [UNIT Y] ANEUP LOIDY NIPT sex chromosome aneuploidy NOT DETECT ED normal Not Available [facility] [address], [place], [address], 03/12/2025 00:32:43 03/12/20 25 03/12/2025 [UNIT Y] ANEUP LOIDY NIPT monosomy X LOW RISK <1 in 10,000 normal Not Available [facility] [address], [place], [address], 03/12/2025 00:32:43 03/12/20 25 03/12/2025 [UNIT Y] ANEUP LOIDY NIPT trisomy 13 LOW RISK <1 in 10,000 normal Not Available [facility] [address], [place], [address], 03/12/2025 00:32:43 03/12/20 25 03/12/2025 [UNIT Y] ANEUP LOIDY NIPT trisomy 18 LOW RISK <1 in 10,000 normal Not Available [facility] [address] [place], [address], 03/12/2025 00:32:43 03/12/20 25 03/12/2025 [UNIT Y] ANEUP LOIDY NIPT trisomy 21 LOW RISK <1 in 10,000 normal Not Available [facility] [address], [place], [address], 03/12/2025 00:32:43 03/12/20 25 03/12/2025 [UNIT Y] ANEUP LOIDY NIPT sex FEMALE normal Not Available [facility] [address], [place], [address], 03/12/2025 00:32:43 03/12/20 25 03/12/2025 [UNIT Y] ANEUP LOIDY NIPT gestation SINGLE TON normal Not Available [facility] [address], [place], [address], 03/12/2025 00:32:43 03/12/20 25 03/12/2025 [UNIT Y] ANEUP LOIDY NIPT for detailed report, see pdf See PDF normal Not Available [facility] [address], [place], [address], 03/12/2025 00:32:43 03/04/20 25 03/04/2025 CBC W/DIF F WBC 6.6 10'3/ uL 3.5-10 .5 Not Available [facility] (Lab) [address], [place], [address], 03/05/2025 14:35:50 03/04/20 25 03/04/2025 CBC W/DIF F RBC 4.56 10'6/ uL (based on docume nted legal sex) 3.80-5 .20 Not Available [facility] (Lab) [address], [place], [address], 03/05/2025 14:35:50 03/04/20 25 03/04/2025 CBC W/DIF F HGB 12.2 g/dL (based on docume nted legal sex) 11.6-1 5.4 Not Available [facility] (Lab) [address], [place], [address], 03/05/2025 14:35:50 03/04/20 25 03/04/2025 CBC W/DIF F HCT 36.8 % (based on docume nted legal sex) 34.0-4 5.0 Not Available [facility] (Lab) [address], [place], [address], 03/05/2025 14:35:50 03/04/20 25 03/04/2025 CBC W/DIF F MCV 80.7 fL 80.0-9 9.0 Not Available [facility] (Lab) [address], [place], [address], 03/05/2025 14:35:50 03/04/20 25 03/04/2025 CBC W/DIF F MCH 26.8 pg 27.0-3 4.0 low Not Available [facility] (Lab) [address], [place], [address], 03/05/2025 14:35:50 03/04/20 25 03/04/2025 CBC W/DIF F MCHC 33.2 g/dL 32.0-3 5.5 Not Available [facility] (Lab) [address], [place], [address], 03/05/2025 14:35:50 03/04/20 25 03/04/2025 CBC W/DIF F RDW 14.6 % 11.0-1 5.0 Not Available [facility] (Lab) [address], [place], [address], 03/05/2025 14:35:50 03/04/20 25 03/04/2025 CBC W/DIF F plt 318 10'3/ uL 150-40 0 Not Available [facility] (Lab) [address], [place], [address], 03/05/2025 14:35:50 03/04/20 25 03/04/2025 CBC W/DIF F MPV 10.8 fL 8.8-12 .1 Not Available [facility] (Lab) [address], [place], [address], 03/05/2025 14:35:50 03/04/20 25 03/04/2025 CBC W/DIF F NRBC's 0.0 % 0.0 Not Available [facility] (Lab) [address], [place], [address], 03/05/2025 14:35:50 03/04/20 25 03/04/2025 CBC W/DIF F absolute NRBCs 0.0 10'3/ uL no refere nce range establ ished Not Available [facility] (Lab) [address], [place], [address], 03/05/2025 14:35:50 03/04/20 25 03/04/2025 CBC W/DIF F neutrophils 62.2 % 34.0-7 3.0 Not Available [facility] (Lab) [address], [place], [address], 03/05/2025 14:35:50 03/04/20 25 03/04/2025 CBC W/DIF F lymphocytes 29.5 % 15.0-5 0.0 Not Available [facility] (Lab) [address], [place], [address], 03/05/2025 14:35:50 03/04/20 25 03/04/2025 CBC W/DIF F monocytes 5.1 % 1.0-15 .0 Not Available [facility] (Lab) [address], [place], [address], 03/05/2025 14:35:50 03/04/20 25 03/04/2025 CBC W/DIF F eosinophils 2.1 % 0.0-8. 0 Not Available [facility] (Lab) [address] [facility], [place], [address], 03/05/2025 14:35:50 03/04/20 25 03/04/2025 CBC W/DIF F basophils 0.6 % 0.0-2. 0 Not Available [facility] (Lab) [address] [facility], [place], [address], 03/05/2025 14:35:50 03/04/20 25 03/04/2025 CBC W/DIF [...] separ ately if prese nt. Not Available [facility] (Lab) [address] [facility], [place], [address], 03/05/2025 14:35:50 03/04/20 25 03/04/2025 CBC W/DIF F absolute neutrophils 4.1 10'3/ uL 1.5-8. 0 Not Available [facility] (Lab) [address] [facility], [place], [address], 03/05/2025 14:35:50 03/04/20 25 03/04/2025 CBC W/DIF F absolute lymphocytes 2.0 10'3/ uL 1.0-4. 0 Not Available [facility] (Lab) [address] [facility], [place], [address], 03/05/2025 14:35:50 03/04/20 25 03/04/2025 CBC W/DIF F absolute monocytes 0.3 10'3/ uL 0.2-1. 0 Not Available [facility] (Lab) [address] [facility], [place], [address], 03/05/2025 14:35:50 03/04/20 25 03/04/2025 CBC W/DIF F absolute eosinophils 0.1 10'3/ uL 0.0-0. 6 Not Available [facility] (Lab) [address], [place], [address], 03/05/2025 14:35:50 03/04/2003/04/2025 CBC W/DIF F absolute basophils 0.0 10'3/ uL 0.0-0. 3 Not Available [facility] (Lab) [address], [place], [address], 03/05/2025 14:35:50 03/04/20 25 03/04/2025 CBC W/DIF F absolute immature granulocytes 0.0 10'3/ uL 0.00-0 .10 Refer ence range s for nonbi nary/ inter sex or unspe cifie d gende r patie nts have not been estab lishe d. [facility]as e [facility] for range s estab lishe d for cisge nder patie nts and evalu ate in the clini xander lee xt of the indiv idual patie nt: https ://la and book. nm.or g/gen derx Not Available [facility] (Lab) [address], [place], [address], 03/05/2025 14:35:50 03/04/2003/04/2025 HEPAT ITIS C ANTIB CARLEEN SCREE N, REFLE X TO CONFI RMATI ON hepatitis C antibody Non-re active non-re active Antib odies to HCV Not Detec onesimo, does not exclu de the possi bilit y of expos ure to HCV. Not Available [facility] (Lab) [address], [place], [address], 03/05/2025 14:35:51 03/04/2003/04/2025 HEPAT ITIS B SURFA CE ANTIG EN hepatitis B surface antigen Non-re active non-re active This assay was perfo rmed using [employer] ratio n reage nts and test kits. Value s obtai leland with other assay metho ds or kits canno t be used inter soler eably . Not Available [facility] (Lab) [address] [facility], [place], [address], 03/05/2025 14:35:52 03/04/20 25 03/04/2025 HIV 1/2 ANTIG EN/AN TIBOD Y, REFLE X CONFI RMATI ON HIV antigen/anti body Nonrea ctive nonrea ctive HIV-1 antig en and HIV-1 /HIV- 2 antib odies were not detec onesimo. No labor atory evide nce of HIV infec tion. Not Available [facility] (Lab) [address] [facility], [place], [address], 03/05/2025 14:35:52 03/04/20 25 03/04/2025 TSH, REFLE X FREE T4 TSH 1.28 uIU/m L 0.30-5 .33 Not Available [facility] (Lab) [address] [facility], [place], [address], 03/05/2025 14:35:53 03/04/20 25 03/04/2025 RUBEL LA IGG ANTIB CARLEEN, QUANT rubella antibodies, IgG Reacti ve reacti ve Not Available [facility] (Lab) [address] [facility], [place], [address], 03/05/2025 14:35:53 03/04/20 25 03/04/2025 RUBEL LA IGG ANTIB CARLEEN, QUANT rubella antibodies, IgG quant 28.3 IU/mL >=10 Non-r eacti ve (Non- Immun e) <10 IU/mL React phill (Immu ne) > or = 10 IU/mL Not Available [facility] (Lab) [address] [facility], [place], [address], 03/05/2025 14:35:53 03/04/2003/04/2025 TYPE/ RH/SC REEN ABO/Rh type A POS Not Available [facility] (Lab) [address] [facility], [place], [address], 03/05/2025 14:35:54 03/04/20 25 03/04/2025 TYPE/ RH/SC REEN antibody screen NEG Not Available [facility] (Lab) [address] [facility], [place], [address], 03/05/2025 14:35:54 03/04/20 25 03/04/2025 TYPE/ RH/SC REEN exp date 2024 23:59 Not Available [facility] (Lab) [address] [facility], [place], [address], 03/05/2025 14:35:54 03/04/20 25 03/04/2025 RPR SCREE N, REFLE X TITER /CONF IRMAT ION RPR qualitative Nonrea ctive nonrea ctive Not Available [facility] (Lab) [address] [facility], [place], [address], 03/05/2025 14:35:54 03/04/20 25 03/04/2025 HEMOG LOBIN A1C hemoglobin A1C 5.3 % 4.0-5. 6 The Ameri can [employer] raven [employer] iatio n recom mends that a prima ry goal of thera py ian d be a HBA1C of < 7% and that physi cians shoul d reeva luate the treat ment regim en in patie nts with HBA1C value s consi stent ly > 8%. <5.7% Nuria l 5.7 - 6.4% Incre ased risk for diabe raven >=6.5 % Diagn ostic of diabe raven <7.0% Goal of thera py >8.0% Actio n sugge sted Not Available [facility] (Lab) [address], [place], [address], 03/05/2025 14:35:55 03/05/20 25 03/05/2025 CT/GC AND TRICH OMONA S VAGIN MILA (RRNA ), URINE chlamydia trachomatis, PCR Negati ve negati ve Not Available [facility] (Lab) [address], [place], [address], 03/06/2025 22:36:04 03/05/20 25 03/05/2025 CT/GC AND TRICH OMONA S VAGIN MILA (RRNA ), URINE neisseria gonorrhoeae, PCR Negati ve negati ve Not Available [facility] (Lab) [address] [facility], [place], [address], 03/06/2025 22:36:04 03/05/20 25 03/05/2025 CT/GC AND TRICH OMONA S VAGIN MLIA (RRNA ), URINE trichomonas vaginalis ribosomal RNA (rrna) Negati ve negati ve Not Available [facility] (Lab) [address] [facility], [place], [address], 03/06/2025 22:36:04 03/05/20 25 03/05/2025 CULTU RE: URINE result report SEE RESULT S BELOW Test: Cultu re: Urine Speci men Sourc e: Urine - Clean Catch Speci men Type: Urine Speci men Date: 1317 Resul t Date: 2130 Resul t Statu s: Final resul t Abnor mal: No Resul ting Lab: [facility] [address] [facility] [address] Tel: CULTU RE ----- ----- ----- --- No growt h in 1 day (dete ction level of 10,00 0 colon ies / ml.) Not Available [facility] (Lab) [address] [facility], [place], [address], 03/06/2025 22:36:04 03/05/20 25 03/05/2025 drug scree n, urine Amphetamines : negati ve Not Available [facility] [address], [place], [address], 03/05/2025 13:06:10 03/05/20 25 03/05/2025 drug scree n, urine Cannabinoids : positi ve Not Available [facility] [address], [place], [address], 03/05/2025 13:06:10 03/05/20 25 03/05/2025 drug scree n, urine Cocaine: negati ve Not Available [facility] [place] [address], [place], [address], 03/05/2025 13:06:10 03/05/20 25 03/05/2025 drug scree n, urine Opiates: negati ve Not Available [facility] [place] [address], [place], [address], 03/05/2025 13:06:10 03/05/20 25 03/05/2025 drug scree n, urine Phenocyclidi ne: negati ve Not Available [facility] [address], [place], [address], 03/05/2025 13:06:10 03/05/20 25 03/05/2025 drug scree n, urine Barbiturates : negati ve Not Available [facility] [place] [address], [place], [address], 03/05/2025 13:06:10 03/05/20 25 03/05/2025 drug scree n, urine Benzodiazepi dea: negati ve Not Available [facility] [place] [address], [place], [address], 03/05/2025 13:06:10 03/05/20 25 03/05/2025 drug scree n, urine Ethanol: negati ve Not Available [place] [address], [place], [address], 03/05/2025 13:06:10 03/05/20 25 03/05/2025 drug scree n, urine Hallucinogen s: negati ve Not Available [facility] [place] [address], [place], [address], 03/05/2025 13:06:10 03/05/20 25 03/05/2025 drug scree n, urine Inhalants: negati ve Not Available [place] [address], [place], [address], 03/05/2025 13:06:10 03/05/20 25 03/05/2025 drug scree n, urine Anabolic Steroids: negati ve Not Available [place] [address], [place], [address], 03/05/2025 13:06:10 04/28/20 25 04/28/2025 CULTU RE: URINE result report SEE RESULT S BELOW Test: Cultu re: Urine Speci men Sourc e: Urine - Clean Catch Speci men Type: Urine Speci men Date: 2024 1307 Resul t Date: 20246 Resul t Statu s: Final resul t Abnor mal: No Resul ting Lab: [facility] [address] [facility] [address] Tel: CULTU RE ----- ----- ----- --- No growt h in 1 day (dete ction level of 10,00 0 colon ies / ml.) Not Available [facility] (Lab) [address] [facility], [place], [address], 04/29/2025 22:50:16 02/10/20 25 02/09/2025 US, obste tric, trans vagin al No observ ation record ed. [place] [address], [place], [address], 02/11/2025 15:04:38 03/04/20 25 03/04/2025 US, obste tric, nucha l trans lucen cy No observ ation record ed. [email or web address] [place] [address], [place], [address], 03/04/2025 12:51:34 03/04/20 25 03/04/2025 US, obste tric, 1st trime ster No observ ation record ed. [email or web address] [place] [address], [place], [address], 03/04/2025 12:49:29 03/04/20 25 03/04/2025 US, obste tric, follo w-up No observ ation record ed. [email or web address] [address], [place], [address], 03/08/2025 16:22:05 04/28/20 25 04/28/2025 US, obste tric, 2nd or 3rd trime ster No observ ation record ed. [facility] [address], [place], [address], 04/28/2025 18:35:16 04/28/20 25 04/28/2025 US, obste tric, 2nd or 3rd trime ster No observ ation record ed. [email or web address] [address], [place], [address], 04/28/2025 14:33:42 05/28/20 25 05/28/2025 US, obste tric, follo w-up No observ ation record ed. [facility] [address], [place], [address], 05/28/2025 14:43:14 05/28/20 25 05/28/2025 US, obste tric, follo w-up No observ ation record ed. [email or web address] [address], [place], [address], 05/28/2025 12:23:54 Result Notes None recorded. Problems Name Problem SNOMED Code Status Onset Date Resolution Date Notes Provider Name and Address Organization Details Recorded Time History of chlamydi al infectio n 421137667 Completed chl neg John Marquez [place], [place] - [facility] 4 15:43:29 Low-lyin g placenta 516579254 Completed resolved Sakina Cantrell CNM [address], [place], [address], [facility] 4 12:41:38 Pregnanc y 46832723 Completed 202310/27/2024 Bree Nevarez null, [facility] 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 4 17:47:43 Mixed anxiety and depressi ve disorder 485582189 Active 2023 Corine Novak null, [facility] 4 12:29:58 Pregnanc y 86904590 Active 2024 Bree Nevarez null, [facility] 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 5 13:19:25 Problem Notes None recorded. Procedures Surgical History Date Name Laterality Status Provider Name and Address Organization Details Recorded Time 02/19/20 24 Date of Last Pap Smear completed Corine Novak [facility] 02/19/2024 15:34:35 12/26/19 23 Nexplanon Removal completed Jacey Chavez BENNY- [address], [place], [address], [facility] 12/25/2022 15:19:15 09/07/19 23 Control Implant Insertion completed BALAJI Gandhi-ANTWAN [address], [place], [address], [facility] 09/07/2022 14:46:07 08/05/19 11 Tonsillectomy [address] Corine Novak [facility] 10/17/2023 12:48:17 Imaging Results None recorded. Procedure Notes None recorded. Medical Equipment None Reported. Allergies Allergen ID Allergen Name Allergen Category Reaction Reaction Severity Criticality Documentation Date Start Date Code Code System Note Provider Name and Address Organization Details Recorded Time [address] [facility] Not available Not available Not available 04/01/20242001 RxNorm Corine Novak [facility], [facility] 18:25:07 Medications Name Sig Start Date [...] completed Not Available Not Available Not Available hydrocodone 5 mg-acetamin ophen 325 mg tablet Take 1 tablet every 6 hours by oral route. 2024 active Not Available Not Available Not Avai lable senna 8.6 mg tablet 04/24 completed Not [...] Available Vitals Date Recorded Body weight Systolic And Diastolic Provider Name and Address Organization Details Last Updated DateTime 03/10/2025 27863.36624 g 106/63 mm[Hg] [facility] 03/10/2025 12:11:58 Date Recorded Body height Body mass index (BMI) Body weight Systolic And Diastolic Provider Name and Address Organization Details Last Updated DateTime 04/28/2025 162.56 cm 19.7 kg/m2 89044.12 g 115/62 mm[Hg] [facility] 04/28/2025 12:39:48 Date Recorded Body weight Systolic And Diastolic Provider Name and Address Organization Details Last Updated DateTime 05/28/2025 69364.56883 g 125/76 mm[Hg] Clotilde Tyrell [facility] 05/28/2025 11:40:46 Social History Question Answer Notes LastModified by Organizat ion Details LastModified Time Tobacco Smoking Status Never Smoker Sharonaakash Hickeydiana vargas, [facility] 05/01/2023 15:09:00 If You Are , [...] COVID-19 While That Case Was Ill? No [email or web address] Information n ot available 07/14/2021 In The 14 Days Before Symptom Onset, Have You Had Close Contact With A Person Who Is Under Investigation For COVID-19 While That Person Was Ill? No [email or web address] Information not available 07/14/2021 Have You Been To An Area Known To Be High Risk For COVID-19? No [email or web address] Information not available 07/14/2021 Are You Deaf Or Do You Have Serious Difficulty Hearing? No Information not available 03/15/2021 What Type Of Diet Are You Following? REGULAR Information n ot available 03/15/2021 Do You Use Your Seat Belt Or Car Seat Routinely? Yes Information not available 03/15/2021 Are You Sexually Active? Yes [email or web address] Information not available 05/01/2023 Do You Have Smoke And Carbon Monoxide Detectors In Your Home? Yes Information not available 03/15/2021 Do You Use Sunscreen Routinely? Yes Information not available 03/15/2021 Has Tobacco Cessation Counseling Been Provided? No [email or web address] Information not available 05/01/2023 Do You Have Difficulty Walking Or Climbing Stairs? No [email or web address] Information not available 05/01/2023 Sex: Unknown Functional Status Question Answer Note LastModified by Organizat ion Details LastModified Time Do you use any illicit or recreational drugs? Yes marijuana [email or web address] Information not available 02/19/2024 Do you or have you ever used any other forms of tobacco or nicotine? Yes [email or web address] Information not available 02/19/2024 What is your level of alcohol consumption? None Information not available 03/15/2021 Are you able to walk independently without assistance or assistive devices? [email or web address] Information not available 03/15/2021 Are you able to care for yourself independently? Yes [email or web address] Information not available 05/01/2023 Do you have difficulty dressing, bathing, grooming, or toileting? No [email or web address] Information not available 05/01/2023 Do you or have you ever used e-cigarettes or vape? Current user of electronic cigarettes [email or web address] Information not available 02/19/2024 What is your exercise level? None Information not available 03/15/2021 Mental Status Question Answer Note LastModified by Organization D etails LastModified Time Do you feel stressed (tense, restless, nervous, or anxious, or unable to sleep at night)? [id number] Information not available 03/15/2021 Family History Relationship [...] ICD10 Code Diagnosis IMO Codes Diagnosis Note [id number] Jacey Chavez [facility] [address] [address] 03/15/2021 10:56:15 03/15/2021 11:58:21 Cystic acne 41383118 L70.0 N92.0 Discussed all control options in [...] or sooner if questions Gynecologi c examination 31644951 Z01.419 Take Calcium with Vitamin D 1200mg [...] screen today but will consider moving forwards. [id number] Sakina Cantrell [facility] [address] [address] 07/14/2021 10:04:12 07/14/2021 11:55:46 Acne 07266307 L70.9 [facility] ion care management [id number] Z30.9 [id number] Jacey Chavez [facility] [address] [address] 08/30/2021 09:26:58 08/30/2021 13:38:10 Vaginitis 42820491 N76.0 Today we agreed to treatment and [...] this patient s visit, including available hand salesperson sheet music upon arrive, temperatur e check and being asked a series of screening questions. All staff wore face coverings during this encounter, as well as provided additional cleaning and sanitizing of all surfaces, including countertop s, pens, chairs, door handles, light switches, etc, prior to and following the patient s visit. [id number] BALAJI Boo [place] [address] [address] 03/20/2022 11:08:37 03/20/2022 12:30:57 Irregular periods 40584681 N92.6 Venereal d isease screening 713591101 Z11.3 Sexually t ransmitted infectious disease 2896445 A64 Vaginitis 05026861 N76.0 Urine hcg (-) today, patient request [...] counseling and review of plan of care. [id number] BALAJI Boo [address] [address] 04/11/2022 10:04:33 04/11/2022 11:47:18 Lesion of vulva 394587304 N90.89 Lesion highly suspicious for HSV infection, [...] plan of care. Contracept ion care management 927839542 Z30.9 Venereal d isease screening 690713028 Z11.3 [id number] Jacey Chavez [facility] [address],[place] [address] 09/06/2022 16:53:35 09/06/2022 17:13:39 Contraception care management 305540427 Z30.9 Discussed all control options in depth [...] counseling and review of plan of care. [id number] Jacey Chavez [facility] [address],[place] [address] 09/07/2022 14:11:06 09/07/2022 15:29:09 Implantation of subcutaneous contraceptive 276599858 Z30.9 Patient is here currently on her [...] 3mos med check or sooner if needed [id number] Jacey Chavez [facility] [address],[place] [address] 11/21/2022 15:04:09 11/21/2022 17:23:09 Venereal disease screening 345424822 Z11.3 STD screen swab updatedSTD serum panel updatedNew sexual partnerWil l contact with results Time spent in visit is a total of 15 mins with at least 50% of visit consisting of counseling and review of plan of care. Abnormal u terine bleeding 5434014039 9100 N93.9 UPT negIf continues consider course of estradiol 1mg x 20 days.Under stands that this can be normal 3-6mos with initiation of nexplanon. Will update us Sexually t ransmitted infectious disease 1693023 A64 [id number] Jacey Chavez [facility] [address],[place] [address] 12/25/2022 14:42:59 12/25/2022 15:32:53 Venereal disease screening 213127608 Z11.3 Here today for JARAD.Took all abxPartner treatedUri ne JARAD sentNEg sxs Time spent in visit is a total of 10 mins with at least 50% of visit consisting of counseling and review of plan of care.Not including time spent on procedure. Removal of subcutaneous contraceptive 420058378 Z30.46 Removal site was cleansed with betadine and 3cc of lidocaine used for anesthesia . Device was removed in normal fashion without difficulty . Steri stips and pressure bandage placed. Opts to use CondomsUnd erstands there is no contracept ion (unless uses condoms) once device is removed.Un derstandin g verbalized . [id number] Jacey Chavez [facility] [address],[place] [address] 04/24/2023 15:42:02 04/25/2023 12:38:44 Easy bruising 968820388 R58 Today we discussed updating lab work [...] review of plan of care. Cystic acne 56294474 L70 .0 N92.0 Consider derm referral if neeeded [id number] Jacey Chavez , [facility] [address],[place] [address] 05/01/2023 15:08:53 05/02/2023 16:57:16 Cystic acne 97312621 L70.0 N92.0 Today we agreed to consider a trial of spironolac tone for help with her acne which is likely related to hormonal changes after removal of nexplanon. She is trying to avoid hormonal BC reports that is greatly effects her moods.She will consider this option & RTO x 4wks med check if decides to pursue.Eduardo padron need updated CMP with potassium levels if continue spironolac tone. Counseled on medication R/B's, Most common side effects, & use. All questions were answered to patient satisfacti on. Time spent in visit is a total of 20 mins with at least 50% of visit consisting of counseling and review of plan of care. [id number] Jacey Chavez [facility] [address],[place] [address] 06/19/2023 09:20:29 06/19/2023 09:55:28 Furuncle of vulva 763579829 N76.4 Boils on vulva found on exam [...] plan of care. Reproducti ve care management 954601126 Z31.9 Trying to conceiveWi ll start PNV Counseled on reproducti ve timeline, signs/sx's . [id number] Jones Koenig MD [place] [address],[place] [address] 10/17/2023 12:37:37 10/17/2023 13:41:58 Abnormal uterine bleeding 5228733252 9100 N93.9 23-year-ol d patient with abnormal [...] was counseling . Disorder o f menstruation 787274646 N92.6 [id number] Jones Koenig MD [place] [address],[place] [address] 10/28/2023 14:29:56 10/28/2023 15:30:52 Abnormal uterine bleeding 6303721905 9100 N93.9 23-year-ol d patient with abnormal [...] ce. More than 50% was counseling . [id number] Jones Koenig MD [place] [address],[place] [address] 10/28/2023 15:18:58 10/28/2023 16:39:54 Abnormal uterine bleeding 3537235130 9100 N93.9 this patient is a 23-year-ol [...] was counseling . [id number] Jones Koenig MD [place] [address],[place] [address] 02/19/2024 14:52:45 02/19/2024 15:21:14 Uterine size for dates discrepancy 378680734 O26.841 Z3A.01 [id number] [facility] [address],[place] [address] 02/19/2024 14:52:59 02/19/2024 16:08:22 Amenorrhea 08113094 N91.2 +UPTcontin ue PNVplan 12 week NIPS and new obpap collected Gynecologi c examination 44981559 Z01.419 Nausea and vomiting 1693 2000 R11.2 [id number] Jones Koenig MD [place] [address],[place] [address] 04/01/2024 17:27:04 04/02/2024 07:54:22 screening 540670330 Z36.82 Z3A.12 [id number] [facility] [address],[place] [address] 04/01/2024 17:27:30 04/02/2024 17:31:29 Gestation period, 12 weeks 65686165 Z3A.12 continue vitamin [id number] Sakina Cantrell CNM [place] [address],[place] [address] 04/29/2024 16:22:12 04/29/2024 16:50:41 Gestation period, 16 weeks 46319447 Z3A.16 continue vitamin Anxiety 54374627 F41.9 start zoloft 25 mg daily, if any suicidal thoughts to edse risks and benefitsf/ u 4 weeks or sooner if neededmay have reglan if calls [id number] Jones Koenig MD [place] [address],[place] [address] 05/26/2024 14:35:17 05/26/2024 17:52:03 screening for malformation 496711937 Z36.3 Z3A.20 [id number] [facility] [address],[place] [address] 05/27/2024 17:14:49 05/28/2024 10:29:26 Gestation period, 20 weeks 63114719 Z3A.20 Anxiety 51485304 F41.9 continue zoloft 25 mg daily, if any suicidal thoughts to edse risks and benefitsf/ u 4 weeks or sooner if neededmay have reglan if calls [id number] Jones Koenig MD [place] [address],[place] [address] 06/24/2024 11:40:27 06/24/2024 12:37:10 Low-lying placenta 390909432 O44.42 Z3A.24 135553 [facility] [address],[place] [address] 06/24/2024 11:41:44 06/24/2024 12:43:47 Gestation period, 24 weeks 603422802 Z3A.24 [id number] [facility] [address],[place] [address] 07/31/2024 11:09:29 07/31/2024 11:59:32 Gestation period, 29 weeks 34984639 Z3A.29 [id number] Jones Koenig MD [place] [address],[place] [address] 08/12/2024 09:12:24 08/12/2024 10:05:14 Uterine size for dates discrepancy 656923288 O26.843 Z3A.31 [id number] Sakina Cantrell CNM [place] [address],[place] [address] 08/12/2024 09:12:58 08/12/2024 10:58:29 Gestation period, 31 weeks 74466464 Z3A.31 [id number] Sakina Cantrell [facility] [address],[place] [address] 08/26/2024 15:22:41 08/26/2024 16:03:35 Gestation period, 33 weeks 60042429 Z3A.33 Infection of tooth 45654 8007 K04.7 [id number] Sakina Cantrell [facility] [address],[place] [address] 09/09/2024 14:13:46 09/09/2024 14:53:11 Gestation period, 35 weeks 58367309 Z3A.35 [id number] Jones Koenig MD [place] [address],[place] [address] 09/16/2024 13:54:55 09/16/2024 14:31:09 Low maternal weight gain 47608172 O26.13 Z3A.36 [id number] Sakina Cantrell [facility] [address],[place] [address] 09/16/2024 13:55:25 09/16/2024 15:17:37 Gestation period, 36 weeks 21130763 Z3A.36 Anxiety 99426284 F41.9 [id number] [facility] [address],[place] [address] 09/23/2024 14:14:35 09/23/2024 14:44:24 Gestation period, 37 weeks 97039945 Z3A.37 [id number] [facility] [address],[place] [address] 09/30/2024 13:57:10 09/30/2024 14:34:28 Gestation period, 38 weeks 45801642 Z3A.38 [id number] [facility] [address],[place] [address] 2024 17:17:21 10/04/2024 23:16:42 Abdominal pain in 291305527 O99.891 [id number] Sakina Cantrell [facility] [address],[place] [address] 10/07/2024 09:37:07 10/07/2024 10:22:59 Gestation period, 39 weeks 15693178 Z3A.39 [id number] Sakina Cantrell [facility] [address],[place] [address] 10/23/2024 15:14:56 10/23/2024 15:47:27 Constipation 62716146 K59.00 continue miralax, d/c iron, ok for gummy vitamin f/u visit Hemorrhoids 07580572 K64 .9 [id number] Sakina Cantrell [facility] [address],[place] [address] 11/11/2024 12:20:06 11/11/2024 13:36:07 Alopecia 85201367 L65.9 Fatigue 92996553 R53.83 care 35772985 8 Z39.2 [id number] Jones Koenig MD [place] [address],[place] [address] 01/06/2025 11:46:15 01/06/2025 13:27:48 Finding of menstrual bleeding 568546202 Z36.87 Z3A.01 501031 [id number] Jones Koenig MD [place] [address],[place] [address] 01/29/2025 10:59:18 01/29/2025 11:29:28 [id number] [facility] [address],[place] [address] 01/29/2025 10:59:36 01/29/2025 12:07:32 Mixed anxiety and depressive disorder 406000796 F41.8 4085841 Amenorrhea 64465976 N91. 2 96841 +UPTcontin ue PNVplan 12 week NIPS and new obpap up to daterefill sertraline [id number] Jones Koenig MD [place] [address],[place] [address] 03/04/2025 11:49:53 03/04/2025 12:33:33 screening 208953077 Z36.82 Z3A.12 8191671933 [id number] [facility] [address],[place] [address] 03/05/2025 11:51:16 03/05/2025 13:26:19 Dental abscess 389393338 K04.7 167591 [id number] [facility] [address],[place] [address] 03/10/2025 12:02:00 03/10/2025 12:31:22 Gestation period, 13 weeks 59152225 Z3A.13 1825755 Candidiasis of vagina 72 612996 B37.31 482501 [id number] Jones Koenig MD [place] [address],[place] [address] 04/28/2025 11:37:51 04/28/2025 12:54:31 Screening status 424637564 Z36.3 Z3A.20 9710386633 [id number] [facility] [address],[place] [address] 04/28/2025 11:39:11 04/28/2025 12:57:05 Gestation period, 20 weeks 76080085 Z3A.20 4492539 [id number] Jones Koenig MD [place] [address],[place] [address] 05/28/2025 11:01:00 05/28/2025 11:35:34 anatomy study 819635225 Z36.2 O35.8XX0 Z3A.25 7811236164 [id number] [facility] [address] [address] 05/28/2025 11:01:17 05/28/2025 12:11:51 Gestation period, 25 weeks 04960735 Z3A.25 [id number] Health Concerns Section Related Observation LastModified by Organization Detai ls LastModified Time None Recorded Concern Status LastModified by Organization Details LastModified Time None Recorded Advance Directives Directive None Recorded Payers Insurance Date Sequence Insurance Name Policy Number Policy Shine Covered Member ID Shine Member ID Guarantor Name 05/31/2025 1 [facility] [id number] 1 Cornel Gary [id number] S Mae M Allgire 10/28/2024 1 [facility] ON OR AFTER 02/02/21 (MEDICAID REPLACEMENT - HMO) Mae Allgire [id number] Mae M Allgire 10/28/2024 1 [facility] ON OR AFTER 02/02/21 (MEDICAID REPLACEMENT - HMO) Mae Allgire [id number] Mae M Allgire 05/25/2025 2 MEDICAID-[place]: [facility] Mae Allgire [id number] Mae M Allgire 11/06/2024 2 [facility] ON OR AFTER 02/02/21 (MEDICAID REPLACEMENT - HMO) Mae Allgire [id number] Mae M Allgire 10/28/2024 1 [facility] ON OR AFTER 02/02/21 (MEDICAID REPLACEMENT - HMO) Mae Allgire [id number] Mae M Allgire Notes Date Note Type Note Provider Name and Address Organization Details Recorded Time 04/28/2025 text/html Generic HPI TemplateReported by Patient Sakina Cantrell CNM [address], [place], [address], [facility] 04/28/2025 12:56:38 05/28/2025 text/html Generic HPI TemplateReported by Patient [address], [place], [address], [facility] 05/28/2025 12:06:11 OBGyn Episode Ob Episode Information Episode Created Date Number of Fetuses Patient Bloodtype Patient rh Status Prepregnancy Weight lbs Domestic Partner Domestic Partner Phone Father Name Hospital Unit Clerk Status 04/01/20 24 1 A Positive 104 Stan Willjoer d CLOSED Fetus Data First Name Last Name Admitted to NICU Weight (g) Sex Living Outcome Pediatric Complications Fetus ID Race Codes Race Delivery Type M true Full Term [id number] Vaginal Delivery Problems Problem Notes 32wk growth us Problem Name Start Date End Date Resolution Snomed Code Not e History of chlamydial infection 808873298 chl neg Alpha thalassemia 04/16/2024 95672813 s ilent carrier; low risk Low-lying placenta 453976759 r esolved Valerio Calculation Initial Valerio Date [...] Weight in lbs Pre/Post Dialysis Refused Weight 104.282015161943 BP Diastolic BP Location Tested BP Systolic [...] Type Weight in lbs Pre/Post Dialysis Refused 105.577213214924 BP Diastolic BP Location Tested BP Systolic [...] Type Weight in lbs Pre/Post Dialysis Refused 109.165309901098 BP Diastolic BP Location Tested BP Systolic [...] Present Fetus Movement Comments Flowsheet Date 06/24/2024 Rfias Score Blood Edema Fundus Height Fundus Units Glucose Ketones Leukocytes Nitrite Labor Signs Protein Cervic Dilation Cervic Effacement Cervic Station none Type Weight in lbs Pre/Post Dialysis Refused 118.233693505413 BP Diastolic BP Location Tested BP Systolic [...] Type Weight in lbs Pre/Post Dialysis Refused 122.127903769051 BP Diastolic BP Location Tested BP Systolic [...] Type Weight in lbs Pre/Post Dialysis Refused 123.079186937512 BP Diastolic BP Location Tested BP Systolic [...] Weight in lbs Pre/Post Dialysis Refused Weight 123.059523895668 BP Diastolic BP Location Tested BP Systolic [...] Weight in lbs Pre/Post Dialysis Refused Weight 125.032424360449 BP Diastolic BP Location Tested BP Systolic [...] Type Weight in lbs Pre/Post Dialysis Refused 126.72228676996 BP Diastolic BP Location Tested BP Systolic [...] Type Weight in lbs Pre/Post Dialysis Refused 127.203705766054 BP Diastolic BP Location Tested BP Systolic [...] Weight in lbs Pre/Post Dialysis Refused Weight 131.763294320867 BP Diastolic BP Location Tested BP Systolic [...] Weight in lbs Pre/Post Dialysis Refused Weight 131.568473617353 BP Diastolic BP Location Tested BP Systolic BP Type 78 131 Fetus Heart Rate Present Fetus Movement Comments Flowsheet Date 10/07/2024 Frias Score Blood Edema Fundus Height Fundus Units Glucose Ketones Leukocytes Nitrite Labor Signs Protein Cervic Dilation Cervic Effacement Cervic Station neg 37 cm Type Weight in lbs Pre/Post Dialysis Refused 130.660884763817 BP Diastolic BP Location Tested BP Systolic [...] Weight in lbs Pre/Post Dialysis Refused Weight 114.830720456562 BP Diastolic BP Location Tested BP Systolic [...] Post Complications Tubal Sterilization Discharge Date Comments Induce d 40.3 7.46 Sakina Cantrell CNJaguar Discharge Information Feeding Method Contraceptive Method Maternal HG B and HCT Levels Ob Episode Information Episode Created Date Number of Fetuses Patient Bloodtype Patient rh Status Prepregnancy Weight lbs Domestic Partner Domestic Partner Phone Father Name Hospital Unit Clerk Status 02/25/20 25 1 A Positive 111 OPEN Fetus Data First Name Last Name Admitted to NICU Weight (g) Sex Living Outcome Pediatric Complications Fetus ID Race Codes Race Delivery Type [id number] Problems Problem Notes +THC in urine Problem Name Start Date End Date Resolution 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 699788 03 + 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 2023 Valerio Calculation Initial Valerio Date Initial Exam Date Initial Exam Provider Initial Ultrasound Date Last Menstrual Period Date Ultra Sound Weeks Gestation 09/10/2025 02/24/2025 0 Eighteen To Twenty Week Valerio Update Ultra Sound Date Fundal Height At Umbil Quickening Date Ultra Sound Latest Weeks Gestation Final Valerio Confirmed By Final Valerio Confirmed Date Final Valerio Date Ultra Sound Latest Days Gestation 05/28/20 25 24 4 Pre- Flowsheet Flowsheet Date 03/04/2025 Frias Score [...] Weight in lbs Pre/Post Dialysis Refused Weight 112.583219067018 BP Diastolic BP Location Tested BP Systolic BP Type 62 R arm 112 sitting Fetus Heart Rate Present Fetus Movement A No Comments Flowsheet Date 03/10/2025 Frias Score Blood Edema Fundus Height Fundus Units Glucose Ketones Leukocytes Nitrite Labor Signs Protein Cervic Dilation Cervic Effacement Cervic Station Type Weight in lbs Pre/Post Dialysis Refused 113.440083904313 BP Diastolic BP Location Tested BP Systolic BP Type 63 L arm 106 sitting Fetus Heart Rate Present Fetus Movement A Yes Comments reviewed US, sp was [facility], appt got rescheduledpt has hx of uncomplicated [...] Weight in lbs Pre/Post Dialysis Refused Weight 115.163062054840 BP Diastolic BP Location Tested BP Systolic BP Type 62 L arm 115 sitting Fetus Heart Rate Present Fetus Movement A Yes Comments anatomy complete LVEIF faint , nipt wnl will rpt in4 weeks, precautions and education f/u 4 weeks Flowsheet Date 05/28/2025 Frias Score Blood Edema Fundus Height Fundus Units Glucose Ketones Leukocytes Nitrite Labor Signs Protein Cervic Dilation Cervic Effacement Cervic Station Type Weight in lbs Pre/Post Dialysis Refused BP Diastolic BP Location Tested BP Systolic BP Type Fetus Heart Rate Present Fetus Movement Comments Flowsheet Date 05/28/2025 Frias Score Blood Edema Fundus Height Fundus Units Glucose Ketones Leukocytes Nitrite Labor Signs Protein Cervic Dilation Cervic Effacement Cervic Station Type Weight in lbs Pre/Post Dialysis Refused 119.796730946339 BP Diastolic BP Location Tested BP Systolic BP Type 76 L arm 125 sitting Fetus Heart Rate Present Fetus Movement A Yes Comments anatomy efw 25%, LVEIF faint , plan gct at next week, took meds for tooth infection and doing much better precautions and education f/u 4 weeks Menstrual [...]
--- OUTSIDE RECORDS SUMMARY | 2025-06-14 13:08 | XMS_ITS | Clinical Summary ---
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
--- OUTSIDE RECORDS SUMMARY | 2025-06-14 13:08 | XMS_ITS | Encounter Summary ---
Author Organization [facility] Address [address] [facility] Attn: Epic [place] [address] Care Team Providers Care Extracting Machine Operator Name Role Phone Unavailable Primary Care Provider Unavailabl e Encounter Details Date Type Department Care Team (Late st Contact Info) Description 2002 Inpatient Historical [place], Rodger Carter MD [address] [facility] [place] [address] Sakina Stoddard MD [address] [facility] [address] [place] [address] SINGL BORN IN HOSP-NO C/DELIVERY (Primary Dx) Social History Tobacco Use Types Packs/Day Years Used Date Smoking Tobacco: Never Assessed Comments Unknown Sex and Gender Information Value Date Recorded Sex Assigned at Not on file 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
[2025-06-14 13:15] VITALS: BP 108/63; PULSE 92
[2025-06-14 13:22] VITALS: BMI 19.4
--- NOTE | 2025-06-14 13:22 | OBADM ---
This patient, Mae Frances, admitted to the OB room 116 for observation. Patient/family oriented to hospital policies and general routines including ID bracelet, bed and alarms, visiting hours, pain management, procedures, bathroom and other care routines, personal items, smoking policy, room service/diet, and visiting hours. Patient/Family are encouraged to report perceived risks to care and to ask questions if they do not understand what they are told or what they should do.
[2025-06-14 13:30] VITALS: BP 114/71; PULSE 99
[2025-06-14 13:53] LABS: Add Urine Microscopic? YES; Appearance Urine Turbid (Clear); Glucose Urine UA Negative (Negative); Leukocyte Esterase Ur 1+ LEU/UL (Negative); Need Manual Microscopic Reviewed; Nitrate Urine Negative (Negative); Non Pathogenic Casts 0-2; Specific Grav Ur 1.022 (1.001-1.035)
--- NOTE | 2025-06-14 14:16 | PC.NURSE ---
Dr. Koenig notified of pt arrival to unit, chief complaint, monitor reading, and urinalysis. Provider acknowledges information presented. Provider wants pt to follow up in office this week. Discussed with provider the use of a belly band for discomfort. Provider states, we will fit pt in the office this week. Pt ok to discharge.
--- NOTE | 2025-07-04 19:19 | PM.OBTRLD ---
OB - Triage/Final Diagnosis Visit Information Comments/Additional reasons for admission: I have assessed the risk for this patient, Mae Frances, and determined that she would benefit from observation care. Evaluation Laboratory results: Laboratory Tests 06/14/25 13:17 Urine Color Yellow Urine Appearance Turbid H Urine pH 7.5 Ur Specific [place] 1.022 Urine Protein Negative Urine Glucose (UA) Negative Urine Ketones Negative Ur Blood (Man) Negative Urine Nitrate Negative Urine Bilirubin Negative Urine Urobilinogen 0.2 Add Ur Microanalysis Reviewed Leukocyte Esterase Rfl 1+ H Urine RBC 0-2 Urine WBC 0-5 Ur Squamous Epith Cells Moderate Urine Bacteria Rare Urine Casts 0-2 Final Diagnosis (1) Abdominal pain: Code(s): R10.9 - Unspecified abdominal pain Status: Acute
== END 2025-06-14 14:30 | disposition home or self-care (01) ==
PROVIDERS: Admitting Provider Obstetrics & Gynecology; PCP Advanced Practice Midwife; Visit Provider Obstetrics & Gynecology
DX: O26.892 Other specified pregnancy related conditions, second trimester (principal); R10.9 Unspecified abdominal pain; Z3A.27 27 weeks gestation of pregnancy
CPT/HCPCS: 81001; G0378; G0379

== ENCOUNTER 2025-07-30 15:23 | Observation (INO) | payer MEDICAID, BC, SELFPAY ==
[2025-07-30] VITALS (38 sets, daily range): BP systolic 105–116; BP diastolic 53–76; PULSE 78–152; TEMP 36.6; O2SAT 96–100; BMI 21.6
--- OUTSIDE RECORDS SUMMARY | 2025-07-30 15:30 | XMS_ITS | Clinical Summary ---
Author Organization 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
--- OUTSIDE RECORDS SUMMARY | 2025-07-30 15:30 | XMS_ITS | Encounter Summary ---
Author Organization [facility] Address [address] [place] [address] Care Team Providers Care Insect Control Aide Name Role Phone Unavailable Primary Care Provider Unavailabl e Encounter Details Date Type Department Care Team (Late st Contact Info) Description 2002 Outpatient Historical [facility] [address] [address] Radhika Emmanuel MD NO ADDRESS ON FILE Social History Tobacco Use Types Packs/Day Years Used Date Smoking Tobacco: Never Assessed Comments Unknown Sex and Gender Information Value Date Recorded Sex Assigned at Not on file 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
--- OUTSIDE RECORDS SUMMARY | 2025-07-30 15:30 | XMS_ITS | Continuity of Care Document ---
Author Organization [facility] Address [address] [place] [address] Assessment Encounter Date Assessment Date Assessment LastModified by Organization Details LastModified Time 05/28/2025 05/28/2025 Patient is _25__weeks . Discussed plan. Not available 05/28/2025 12:05:52 Plan of Treatment Reminders Order Date Submit Date Provider Last Modified By Organization Details Last Modified Time Details Appointments U/S OB GROWTH 2025 03:00P M ULTRASOUND Not available Not available Not available OB ROUTINE 2025 03:30P M Sakina Cantrell CNM Not available Not [...] [address], [place], [address], 03/12/2025 00:32:43 03/12/20 25 03/12/2025 [UNIT Y] ANEUP LOIDY NIPT 22Q11.2 microdeletio n LOW RISK <1 in 10,000 normal Not Available [address] [address], [place], [address], 03/12/2025 00:32:43 03/12/20 25 03/12/2025 [UNIT Y] ANEUP LOIDY NIPT sex chromosome aneuploidy NOT DETECT ED normal Not Available [facility] [address], [place], [address], 03/12/2025 00:32:43 03/12/20 25 03/12/2025 [UNIT Y] ANEUP LOIDY NIPT monosomy X LOW RISK <1 in 10,000 normal Not Available [address] [address], [place], [address], 03/12/2025 00:32:43 03/12/20 25 03/12/2025 [UNIT Y] ANEUP LOIDY NIPT trisomy 13 LOW RISK <1 in 10,000 normal Not Available [address] [address], [place], [address], 03/12/2025 00:32:43 03/12/20 25 03/12/2025 [UNIT Y] ANEUP LOIDY NIPT trisomy 18 LOW RISK <1 in 10,000 normal Not Available [address] [address], [place], [address], 03/12/2025 00:32:43 03/12/20 25 03/12/2025 [UNIT Y] ANEUP LOIDY NIPT trisomy 21 LOW RISK <1 in 10,000 normal Not Available [address] [facility] [address], [place], [address], 03/12/2025 00:32:43 03/12/20 25 03/12/2025 [UNIT Y] ANEUP LOIDY NIPT sex FEMALE normal Not Available [facility] [address] [address], [place], [address], 03/12/2025 00:32:43 03/12/20 25 03/12/2025 [UNIT Y] ANEUP LOIDY NIPT gestation SINGLE TON normal Not Available [address] [address], [place], [address], 03/12/2025 00:32:43 03/12/2003/12/2025 [UNIT Y] ANEUP LOIDY NIPT for detailed report, see pdf See PDF normal Not Available [address] [address], [place], [address], 03/12/2025 00:32:43 03/04/2003/04/2025 CBC W/DIF F WBC 6.6 10'3/ uL 3.5-10 .5 Not Available [facility] (Lab) [address], [place], [address], 03/05/2025 14:35:50 03/04/20 25 03/04/2025 CBC W/DIF F RBC 4.56 10'6/ uL (based on docume nted legal sex) 3.80-5 .20 Not Available [facility] (Lab) [address], [place], [address], 03/05/2025 14:35:50 03/04/20 25 03/04/2025 CBC W/DIF F HGB 12.2 g/dL (based on docume nted legal sex) 11.6-1 5.4 Not Available [facility] (Lab) [address], [place], [address], 03/05/2025 14:35:50 03/04/20 25 03/04/2025 CBC W/DIF F HCT 36.8 % (based on docume nted legal sex) 34.0-4 5.0 Not Available [facility] (Lab) [address], [place], [address], 03/05/2025 14:35:50 03/04/20 25 03/04/2025 CBC W/DIF F MCV 80.7 fL 80.0-9 9.0 Not Available [facility] (Lab) [address] [place], [address], 03/05/2025 14:35:50 03/04/20 25 03/04/2025 CBC W/DIF F MCH 26.8 pg 27.0-3 4.0 low Not Available [facility] (Lab) [address] [facility], [place], [address], 03/05/2025 14:35:50 03/04/20 25 03/04/2025 CBC W/DIF F MCHC 33.2 g/dL 32.0-3 5.5 Not Available [facility] (Lab) [address] [facility], [place], [address], 03/05/2025 14:35:50 03/04/20 25 03/04/2025 CBC W/DIF F RDW 14.6 % 11.0-1 5.0 Not Available [facility] (Lab) [address] [facility], [place], [address], 03/05/2025 14:35:50 03/04/20 25 03/04/2025 CBC W/DIF F plt 318 10'3/ uL 150-40 0 Not Available [facility] (Lab) [address] [facility], [place], [address], 03/05/2025 14:35:50 03/04/20 25 03/04/2025 CBC W/DIF F MPV 10.8 fL 8.8-12 .1 Not Available [facility] (Lab) [address] [facility], [place], [address], 03/05/2025 14:35:50 03/04/20 25 03/04/2025 CBC W/DIF F NRBC's 0.0 % 0.0 Not Available [facility] (Lab) [address] [facility], [place], [address], 03/05/2025 14:35:50 03/04/20 25 03/04/2025 CBC W/DIF F absolute NRBCs 0.0 10'3/ uL no refere nce range establ ished Not Available [facility] (Lab) [address] [facility], [place], [address], 03/05/2025 14:35:50 03/04/20 25 03/04/2025 CBC W/DIF F neutrophils 62.2 % 34.0-7 3.0 Not Available [facility] (Lab) [address] [facility], [place], [address], 03/05/2025 14:35:50 03/04/20 25 03/04/2025 CBC W/DIF F lymphocytes 29.5 % 15.0-5 0.0 Not Available [facility] (Lab) [address] [facility], [place], [address], 03/05/2025 14:35:50 03/04/20 25 03/04/2025 CBC W/DIF F monocytes 5.1 % 1.0-15 .0 Not Available [facility] (Lab) [address] [facility], [place], [address], 03/05/2025 14:35:50 03/04/20 25 03/04/2025 CBC W/DIF F eosinophils 2.1 % 0.0-8. 0 Not Available [facility] (Lab) [address] [facility], [place], [address], 03/05/2025 14:35:50 03/04/20 25 03/04/2025 CBC W/DIF F basophils 0.6 % 0.0-2. 0 Not Available [facility] (Lab) [address] [facility], [place], [address], 03/05/2025 14:35:50 03/04/20 25 03/04/2025 CBC W/DIF [...] separ ately if prese nt. Not Available [facility] (Lab) [address] [facility], [place], [address], 03/05/2025 14:35:50 03/04/20 25 03/04/2025 CBC W/DIF F absolute neutrophils 4.1 10'3/ uL 1.5-8. 0 Not Available [facility] (Lab) [address] [facility], [place], [address], 03/05/2025 14:35:50 03/04/20 25 03/04/2025 CBC W/DIF F absolute lymphocytes 2.0 10'3/ uL 1.0-4. 0 Not Available [facility] (Lab) [address] [facility], [place], [address], 03/05/2025 14:35:50 03/04/20 25 03/04/2025 CBC W/DIF F absolute monocytes 0.3 10'3/ uL 0.2-1. 0 Not Available [facility] (Lab) [address] [facility], [place], [address], 03/05/2025 14:35:50 03/04/20 25 03/04/2025 CBC W/DIF F absolute eosinophils 0.1 10'3/ uL 0.0-0. 6 Not Available [facility] (Lab) [address] [facility], [place], [address], 03/05/2025 14:35:50 03/04/20 25 03/04/2025 CBC W/DIF F absolute basophils 0.0 10'3/ uL 0.0-0. 3 Not Available [facility] (Lab) [address] [facility], [place], [address], 03/05/2025 14:35:50 03/04/20 25 03/04/2025 CBC W/DIF F absolute immature granulocytes 0.0 10'3/ uL 0.00-0 .10 Refer ence range s for nonbi nary/ inter sex or unspe cifie d gende r patie nts have not been estab dimitri Beauchamp e refer to the follo wing table for range s estab lishe d for cisge nder patie nts and evalu ate in the clini xander lee xt of the indiv idual patie nt: https :[email or web address] jacobo book. nm.or g/gen derx Not Available [facility] (Lab) [address] [facility], [place], [address], 03/05/2025 14:35:50 03/04/2003/04/2025 HEPAT ITIS C ANTIB CARLEEN SCREE N, REFLE X TO CONFI RMATI ON hepatitis C antibody Non-re active non-re active Antib odies to HCV Not Detec onesimo, does not exclu de the possi bilit y of expos ure to HCV. Not Available [facility] (Lab) [address] [facility], [place], [address], 03/05/2025 14:35:51 03/04/2003/04/2025 HEPAT ITIS B SURFA CE ANTIG EN hepatitis B surface antigen Non-re active non-re active This assay was perfo rmed using [employer] ratio n reage nts and test kits. Value s obtai leland with other assay metho ds or kits canno t be used inter soler eably . Not Available [facility] (Lab) [address] [facility], [place], [address], 03/05/2025 14:35:52 03/04/2003/04/2025 HIV 1/2 ANTIG EN/AN TIBOD Y, REFLE X CONFI RMATI ON HIV antigen/anti body Nonrea ctive nonrea ctive HIV-1 antig en and HIV-1 /HIV- 2 antib odies were not detec onesimo. No labor atory evide nce of HIV infec tion. Not Available [facility] (Lab) [address] [facility], [place], [address], 03/05/2025 14:35:52 03/04/2003/04/2025 TSH, REFLE X FREE T4 TSH 1.28 uIU/m L 0.30-5 .33 Not Available [facility] (Lab) [address] [facility], [place], [address], 03/05/2025 14:35:53 03/04/20 25 03/04/2025 RUBEL LA IGG ANTIB CARLEEN, QUANT rubella antibodies, IgG Reacti ve reacti ve Not Available [facility] (Lab) [address] [facility], [place], [address], 03/05/2025 14:35:53 03/04/20 25 03/04/2025 RUBEL LA IGG ANTIB CARLEEN, QUANT rubella antibodies, IgG quant 28.3 IU/mL >=10 Non-r eacti ve (Non- Immun e) <10 IU/mL React phill (Immu ne) > or = 10 IU/mL Not Available [facility] (Lab) [address] [facility], [place], [address], 03/05/2025 14:35:53 03/04/20 25 03/04/2025 TYPE/ RH/SC REEN ABO/Rh type A POS Not Available [facility] (Lab) [address] [facility], [place], [address], 03/05/2025 14:35:54 03/04/20 25 03/04/2025 TYPE/ RH/SC REEN antibody screen NEG Not Available [facility] (Lab) [address], [place], [address], 03/05/2025 14:35:54 03/04/20 25 03/04/2025 TYPE/ RH/SC REEN exp date 2024 23:59 Not Available [facility] (Lab) [address] [place], [address], 03/05/2025 14:35:54 03/04/20 25 03/04/2025 RPR SCREE N, REFLE X TITER /CONF IRMAT ION RPR qualitative Nonrea ctive nonrea ctive Not Available [facility] (Lab) [address], [place], [address], 03/05/2025 14:35:54 03/04/2003/04/2025 HEMOG LOBIN A1C hemoglobin A1C 5.3 % 4.0-5. 6 The Ameri can Diabe raven [employer] iatio n recom mends that a prima ry goal of thera py shoul d be a HBA1C of < 7% and that physi cians shoul d reeva luate the treat ment regim en in patie nts with HBA1C value s consi stent ly > 8%. <5.7% Nuria l 5.7 - 6.4% Incre ased risk for diabe raven >=6.5 % Diagn ostic of diabe raven <7.0% Goal of thera py >8.0% Actio n sugge sted Not Available [facility] (Lab) [address], [place], [address], 03/05/2025 14:35:55 03/05/20 25 03/05/2025 CT/GC AND TRICH OMONA S VAGIN MILA (RRNA ), URINE chlamydia trachomatis, PCR Negati ve negati ve Not Available [facility] (Lab) [address], [place], [address], 03/06/2025 22:36:04 03/05/20 25 03/05/2025 CT/GC AND TRICH OMONA S VAGIN MILA (RRNA ), URINE neisseria gonorrhoeae, PCR Negati ve negati ve Not Available [facility] (Lab) [address], [place], [address], 03/06/2025 22:36:04 03/05/20 25 03/05/2025 CT/GC AND TRICH OMONA S VAGIN MILA (RRNA ), URINE trichomonas vaginalis ribosomal RNA (rrna) Negati ve negati ve Not Available [facility] (Lab) [address], [place], [address], 03/06/2025 22:36:04 03/05/20 25 03/05/2025 CULTU RE: URINE result report SEE RESULT S BELOW Test: Cultu re: Urine Speci men Sourc e: Urine - Clean Catch Speci men Type: Urine Speci men Date: 1317 Resul t Date: 2130 Resul t Statu s: Final resul t Abnor mal: No Resul ting Lab: [facility] [address] [facility] [address] Tel: CULTU RE ----- ----- ----- --- No growt h in 1 day (dete ction level of 10,00 0 colon ies / ml.) Not Available [facility] (Lab) [address] [facility], [place], [address], 03/06/2025 22:36:04 03/05/20 25 03/05/2025 drug scree n, urine Amphetamines : negati ve Not Available [facility] [address], [place], [address], 03/05/2025 13:06:10 03/05/20 25 03/05/2025 drug scree n, urine Cannabinoids : positi ve Not Available [facility] [address], [place], [address], 03/05/2025 13:06:10 03/05/20 25 03/05/2025 drug scree n, urine Cocaine: negati ve Not Available [facility] [address], [place], [address], 03/05/2025 13:06:10 03/05/20 25 03/05/2025 drug scree n, urine Opiates: negati ve Not Available [facility] [address], [place], [address], 03/05/2025 13:06:10 03/05/20 25 03/05/2025 drug scree n, urine Phenocyclidi ne: negati ve Not Available [facility] [address], [place], [address], 03/05/2025 13:06:10 03/05/20 25 03/05/2025 drug scree n, urine Barbiturates : negati ve Not Available [facility] [address], [place], [address], 03/05/2025 13:06:10 03/05/20 25 03/05/2025 drug scree n, urine Benzodiazepi dea: negati ve Not Available [facility] [address], [place], [address], 03/05/2025 13:06:10 03/05/20 25 03/05/2025 drug scree n, urine Ethanol: negati ve Not Available [facility] [address], [place], [address], 03/05/2025 13:06:10 03/05/20 25 03/05/2025 drug scree n, urine Hallucinogen s: negati ve Not Available [facility] [address], [place], [address], 03/05/2025 13:06:10 03/05/20 25 03/05/2025 drug scree n, urine Inhalants: negati ve Not Available [facility] [address], [place], [address], 03/05/2025 13:06:10 03/05/20 25 03/05/2025 drug scree n, urine Anabolic Steroids: negati ve Not Available [facility] [address], [place], [address], 03/05/2025 13:06:10 04/28/20 25 04/28/2025 CULTU RE: URINE result report SEE RESULT S BELOW Test: Cultu re: Urine Speci men Sourc e: Urine - Clean Catch Speci men Type: Urine Speci men Date: 2024 1307 Resul t Date: 20246 Resul t Statu s: Final resul t Abnor mal: No Resul ting Lab: [facility] [address] [facility] [address] [facility] [address] Tel: CULTU RE ----- ----- ----- --- No growt h in 1 day (dete ction level of 10,00 0 colon ies / ml.) Not Available [facility] (Lab) [address], [place], [address], 04/29/2025 22:50:16 03/04/20 25 03/04/2025 US, obste tric, nucha l trans lucen cy No observ ation record ed. [email or web address] [facility] [address], [place], [address], 03/04/2025 12:51:34 03/04/20 25 03/04/2025 US, obste tric, 1st trime ster No observ ation record ed. [email or web address] [facility] [address], [place], [address], 03/04/2025 12:49:29 03/04/20 25 03/04/2025 US, obste tric, follo w-up No observ ation record ed. [email or web address] [address], [place], [address], 03/08/2025 16:22:05 04/28/20 25 04/28/2025 US, obste tric, 2nd or 3rd trime ster No observ ation [facility] ed. [facility] [address], [place], [address], 04/28/2025 18:35:16 04/28/20 25 04/28/2025 US, obste tric, 2nd or 3rd trime ster No observ ation record ed. [email or web address] [address], [place], [address], 04/28/2025 14:33:42 05/28/2005/28/2025 US, obste tric, follo w-up No observ ation record ed. [facility] [address], [place], [address], 05/28/2025 14:43:14 05/28/20 25 05/28/2025 US, obste tric, follo w-up No observ ation record ed. [email or web address] [address], [place], [address], 05/28/2025 12:23:54 07/06/20 25 07/06/2025 US, obste tric, follo w-up No observ ation record ed. [facility] [address], [place], [address], 07/06/2025 14:22:13 07/06/20 25 07/06/2025 , obste tric, follo w-up No observ ation record ed. BISI [address], [place], [address], 07/10/2025 15:59:39 Result Notes None recorded. Problems Name Problem SNOMED Code Status Onset Date Resolution Date Notes Provider Name and Address Organization Details Recorded Time History of chlamydi al infectio n 133370233 Completed chl neg John vargas, [facility] 4 15:43:29 Low-lyin g placenta 624392826 Completed resolved Sakina Cantrell CNM [address], [place], [address], [facility] 4 12:41:38 Pregnanc y 90975252 Completed 202310/27/2024 Bree vargas [facility] 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 4 17:47:43 Mixed anxiety and depressi ve disorder 165606062 Active 2023 Corine Novak null, [facility] 4 12:29:58 Pregnanc y 19688204 Active 2024 Bree Nevaerz null, [facility] 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 5 13:19:25 Problem Notes None recorded. Procedures Surgical History Date Name Laterality Status Provider Name and Address Organization Details Recorded Time 02/19/20 24 Date of Last Pap Smear completed Corine Novak [facility] 02/19/2024 15:34:35 12/26/19 23 Nexplanon Removal completed Jacey Chavez [facility] [address], [place], [address], [facility] 12/25/2022 15:19:15 09/07/19 23 Control Implant Insertion completed Jacey Chavez [facility] [address], [place], [address], [facility] 09/07/2022 14:46:07 08/05/19 11 Tonsillectomy completed Corine Novak [facility] 10/17/2023 12:48:17 Imaging Results None recorded. Procedure Notes None recorded. Medical Equipment None Reported. Allergies Allergen ID Allergen Name Allergen Category Reaction Reaction Severity Criticality Documentation Date Start Date Code Code System Note Provider Name and Address Organization Details Recorded Time [address] [facility] Not available Not available Not available 04/01/20242001 RxNorm Corine Novak null, [place] - [facility] 4 18:25:07 14235 bisacodyl medicatio n rash Not available high 06/25/20252009 1596 RxNorm Not Available bisi - External Data Service - prod 5 03:07:10 Medications Name Sig Start Date Stop Date [...] day by oral route for 7 days. 06/30/ 2025 08/01 /2025 completed Not Available Not Available Not Available [...] completed Not Available Not Available Not Available cyclobenzap rine 5 mg tablet Take 1 tablet 3 times a day by oral route as needed. 2024 active Not Available Not Available Not Avai lable nitrofurant oin monohydrate /macrocryst als 100 mg [...] Address Organization Details Last Updated DateTime 05/28/2025 59918.38235 g 125/76 mm[Hg] Clotilde Santillan [place] - [facility] 05/28/2025 11:40:46 Social History Question Answer Notes LastModified by Organizat ion Details LastModified Time Tobacco Smoking Status Never Smoker Sharon Hickeyney [facility], [facility] 05/01/2023 15:09:00 If You Are , [...] While That Case Was Ill? No Information n ot available 07/14/2021 In The 14 Days Before Symptom Onset, Have You Had Close Contact With A Person Who Is Under Investigation For COVID-19 While That Person Was Ill? No [email or web address] Information not available 07/14/2021 Have You Been To An Area Known To Be High Risk For COVID-19? No [email or web address] Information not available 07/14/2021 Are You Deaf Or Do You Have Serious Difficulty Hearing? No Information not available 03/15/2021 What Type Of Diet Are You Following? REGULAR Information n ot available 03/15/2021 Do You Use Your Seat Belt Or Car Seat Routinely? Yes Information not available 03/15/2021 Are You Sexually Active? Yes [email or web address] Information not available 05/01/2023 Do You Have Smoke And Carbon Monoxide Detectors In Your Home? Yes Information not available 03/15/2021 Do You Use Sunscreen Routinely? Yes Information not available 03/15/2021 Has Tobacco Cessation Counseling Been Provided? No [email or web address] Information not available 05/01/2023 Do You Have Difficulty Walking Or Climbing Stairs? No [email or web address] Information not available 05/01/2023 Sex: Unknown Functional Status Question Answer Note LastModified by Organizat ion Details LastModified Time Do you use any illicit or recreational drugs? Yes marijuana [email or web address] Information not available 02/19/2024 Do you or have you ever used any other forms of tobacco or nicotine? Yes [email or web address] Information not available 02/19/2024 What is your level of alcohol consumption? None Information not available 03/15/2021 Are you able to walk independently without assistance or assistive devices? [email or web address] Information not available 03/15/2021 Are you able to care for yourself independently? Yes [email or web address] Information not available 05/01/2023 Do you have difficulty dressing, bathing, grooming, or toileting? No [email or web address] Information not available 05/01/2023 Do you or have you ever used e-cigarettes or vape? Current user of electronic cigarettes [email or web address] Information not available 02/19/2024 What is your exercise level? None Information not available 03/15/2021 Mental Status Question Answer Note LastModified by Organization D etails LastModified Time Do you feel stressed (tense, restless, nervous, or anxious, or unable to sleep at night)? [id number] Information not available 03/15/2021 Family History Relationship [...] ICD10 Code Diagnosis IMO Codes Diagnosis Note [id number] Jones Koenig MD [facility] [address],[place] [address] 04/28/2025 11:37:51 04/28/2025 12:54:31 Screening status 921841115 Z36.3 Z3A.20 1852904316 066825 [facility] [address],[place] [address] 04/28/2025 11:39:11 04/28/2025 12:57:05 Gestation period, 20 weeks 47420647 Z3A.20 [id number] Jones Koenig MD [facility] [address],[place] [address] 05/28/2025 11:01:00 05/28/2025 11:35:34 anatomy study 578144777 Z36.2 O35.8XX0 Z3A.25 [id number] 673656 Sakina Cantrell [facility] [address],[place] [address] 05/28/2025 11:01:17 05/28/2025 12:11:51 Gestation period, 25 weeks 86552637 Z3A.25 [id number] Health Concerns Section Related Observation LastModified by Organization Detai ls LastModified Time None Recorded Concern Status LastModified by Organization Details LastModified Time None Recorded Payers Encounter Date Sequence Insurance Name Policy Number Policy Shine Covered Member ID Shine Member ID Guarantor Name 05/28/2025 1 ARNOLD [id number] 1 Cornel Gary [id number] S Mae Frances 05/28/2025 2 [place] [facility] OF PUBLIC AID Mae Frances [id number] Mae Frances Notes Date Note Type Note Provider Name and Address Organization Details Recorded Time 05/28/2025 text/html Generic HPI TemplateReported by Patient Sakina SmithgleROBBY [address], [place], [address], [facility] 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 2023 [...] Latest Days Gestation 05/28/20 25 24 4 Pre-luz Flowsheet Flowsheet Date 03/04/2025 Frias Score Blood [...] Weight in lbs Pre/Post Dialysis Refused Weight 112.281875958741 BP Diastolic BP Location Tested BP Systolic BP Type 62 R arm 112 sitting Fetus Heart Rate Present Fetus Movement A No Comments Flowsheet Date 03/10/2025 Frias Score Blood Edema Fundus Height Fundus Units Glucose Ketones Leukocytes Nitrite Labor Signs Protein Cervic Dilation Cervic Effacement Cervic Station Type Weight in lbs Pre/Post Dialysis Refused 113.912777076182 BP Diastolic BP Location Tested BP Systolic BP Type 63 L arm 106 sitting Fetus Heart Rate Present Fetus Movement A Yes Comments reviewed US, sp was at [facility], appt got rescheduledpt has hx of uncomplicated [...] Weight in lbs Pre/Post Dialysis Refused Weight 115.668871792435 BP Diastolic BP Location Tested BP Systolic [...] Type Weight in lbs Pre/Post Dialysis Refused [id number] BP Diastolic BP Location Tested BP Systolic BP Type 76 L arm 125 sitting Fetus Heart Rate Present Fetus Movement A Yes Comments anatomy efw 25%, LVEIF faint , plan gct at next week, took meds for tooth infection and doing much better precautions and education f/u 4 weeks Flowsheet Date 06/25/2025 Frias Score Blood Edema Fundus Height Fundus Units Glucose Ketones Leukocytes Nitrite Labor Signs Protein Cervic Dilation Cervic Effacement Cervic Station 26 cm Type Weight in lbs Pre/Post Dialysis Refused 123.259964142766 BP Diastolic BP Location Tested BP Systolic BP Type 73 L arm 121 sitting Fetus Heart Rate Present A 135 Fetus Movement Comments doing well, +FM, gct today, education and precautions, f/u 2 weeks with growth Flowsheet Date 07/06/2025 Frias Score Blood Edema Fundus Height Fundus Units Glucose Ketones Leukocytes Nitrite Labor Signs Protein Cervic Dilation Cervic Effacement Cervic Station Type Weight in lbs Pre/Post Dialysis Refused BP Diastolic BP Location Tested BP Systolic BP Type Fetus Heart Rate Present Fetus Movement Comments Flowsheet Date 07/06/2025 Frias Score Blood Edema Fundus Height Fundus Units Glucose Ketones Leukocytes Nitrite Labor Signs Protein Cervic Dilation Cervic Effacement Cervic Station Type Weight in lbs Pre/Post Dialysis Refused Weight [id number] BP Diastolic BP Location Tested BP Systolic BP Type 67 104 Fetus Heart Rate Present A Present Fetus Movement A Yes Comments Still having pelvic and leg pain, likely due to baby's position. Would like to stop working due to pelvic pain, not given. EFW 22%, vertex. Would like EIL at 39 weeks, discuss with SP next visit. RTC 2 weeks. Flowsheet Date 07/23/2025 Frias Score Blood Edema Fundus Height Fundus Units Glucose Ketones Leukocytes Nitrite Labor Signs Protein Cervic Dilation Cervic Effacement Cervic Station 30 cm Type Weight in lbs Pre/Post Dialysis Refused [id number] BP Diastolic BP Location Tested BP Systolic BP Type 67 L arm 114 sitting Fetus Heart Rate Present Fetus Movement A Yes Comments discussed IOL at 39 weeks du e to anxiety, will schedule at 36 weeks, plan growth in 2 weeks. +FM, precautions and education, call for preadmit Menstrual History Last Menstrual Date Menses Monthly [...]
--- OUTSIDE RECORDS SUMMARY | 2025-07-30 15:30 | XMS_ITS | Continuity of Care Document ---
Author Organization [facility] Address [address] [place] [address] Assessment No assessment recorded. Plan of Treatment [...] None recorde d. Imaging US, obstetr ic, follow- up 2024 025 [email or web address] [facility], [facility] [address], [address], [place], [address], 07/06/2025 17:46:22 Medication Orders None recorde d. Patient TargetsNo targets recorded. Patient InstructionsNo instructions recorded. Reason for Referral None Reported. Results Created Date Observation Date Name Description Value Unit Range Abnormal Flag Note LastModifiedBy Organization Detail LastModifiedTime 03/12/2003/12/2025 [UNIT Y] ANEUP LOIDY NIPT fraction 10.3% normal Not Available [address], [place], [address], 03/12/2025 00:32:43 03/12/20 25 03/12/2025 [UNIT Y] ANEUP LOIDY NIPT 22Q11.2 microdeletio n LOW RISK <1 in 10,000 normal Not Available [facility] [address], [place], [address], 03/12/2025 00:32:43 03/12/20 25 03/12/2025 [UNIT Y] ANEUP LOIDY NIPT sex chromosome aneuploidy NOT DETECT ED normal Not Available [address] [address], [place], [address], 03/12/2025 00:32:43 03/12/20 25 03/12/2025 [UNIT Y] ANEUP LOIDY NIPT monosomy X LOW RISK <1 in 10,000 normal Not Available [address] [address], [place], [address], 03/12/2025 00:32:43 03/12/20 25 03/12/2025 [UNIT Y] ANEUP LOIDY NIPT trisomy 13 LOW RISK <1 in 10,000 normal Not Available [address] [address], [place], [address], 03/12/2025 00:32:43 03/12/20 25 03/12/2025 [UNIT Y] ANEUP LOIDY NIPT trisomy 18 LOW RISK <1 in 10,000 normal Not Available [address] [address], [place], [address], 03/12/2025 00:32:43 03/12/20 25 03/12/2025 [UNIT Y] ANEUP LOIDY NIPT trisomy 21 LOW RISK <1 in 10,000 normal Not Available [address] [address], [place], [address], 03/12/2025 00:32:43 03/12/20 25 03/12/2025 [UNIT Y] ANEUP LOIDY NIPT sex FEMALE normal Not Available [facility] [address], [place], [address], 03/12/2025 00:32:43 03/12/20 25 03/12/2025 [UNIT Y] ANEUP LOIDY NIPT gestation SINGLE TON normal Not Available [address] [address], [place], [address], 03/12/2025 00:32:43 03/12/20 25 03/12/2025 [UNIT Y] ANEUP LOIDY NIPT for detailed report, see pdf See PDF normal Not Available [facility] [address], [place], [address], 03/12/2025 00:32:43 03/04/20 25 03/04/2025 CBC W/DIF F WBC 6.6 10'3/ uL 3.5-10 .5 Not Available [facility] (Lab) [address], [place], [address], 03/05/2025 14:35:50 03/04/20 25 03/04/2025 CBC W/DIF F RBC 4.56 10'6/ uL (based on docume nted legal sex) 3.80-5 .20 Not Available [facility] (Lab) [address], [place], [address], 03/05/2025 14:35:50 03/04/20 25 03/04/2025 CBC W/DIF F HGB 12.2 g/dL (based on docume nted legal sex) 11.6-1 5.4 Not Available [facility] (Lab) [address], [place], [address], 03/05/2025 14:35:50 03/04/20 25 03/04/2025 CBC W/DIF F HCT 36.8 % (based on docume nted legal sex) 34.0-4 5.0 Not Available [facility] (Lab) [address], [place], [address], 03/05/2025 14:35:50 03/04/20 25 03/04/2025 CBC W/DIF F MCV 80.7 fL 80.0-9 9.0 Not Available [facility] (Lab) [address] [facility], [place], [address], 03/05/2025 14:35:50 03/04/20 25 03/04/2025 CBC W/DIF F MCH 26.8 pg 27.0-3 4.0 low Not Available [facility] (Lab) [address] [facility], [place], [address], 03/05/2025 14:35:50 03/04/20 25 03/04/2025 CBC W/DIF F MCHC 33.2 g/dL 32.0-3 5.5 Not Available [facility] (Lab) [address] [facility], [place], [address], 03/05/2025 14:35:50 03/04/20 25 03/04/2025 CBC W/DIF F RDW 14.6 % 11.0-1 5.0 Not Available [facility] (Lab) [address] [facility], [place], [address], 03/05/2025 14:35:50 03/04/20 25 03/04/2025 CBC W/DIF F plt 318 10'3/ uL 150-40 0 Not Available [facility] (Lab) [address] [facility], [place], [address], 03/05/2025 14:35:50 03/04/20 25 03/04/2025 CBC W/DIF F MPV 10.8 fL 8.8-12 .1 Not Available [facility] (Lab) [address] [facility], [place], [address], 03/05/2025 14:35:50 03/04/20 25 03/04/2025 CBC W/DIF F NRBC's 0.0 % 0.0 Not Available [facility] (Lab) [address] [facility], [place], [address], 03/05/2025 14:35:50 03/04/20 25 03/04/2025 CBC W/DIF F absolute NRBCs 0.0 10'3/ uL no refere nce range establ ished Not Available [facility] (Lab) [address] [facility], [place], [address], 03/05/2025 14:35:50 03/04/20 25 03/04/2025 CBC W/DIF F neutrophils 62.2 % 34.0-7 3.0 Not Available [facility] (Lab) [address] [facility], [place], [address], 03/05/2025 14:35:50 03/04/20 25 03/04/2025 CBC W/DIF F lymphocytes 29.5 % 15.0-5 0.0 Not Available [facility] (Lab) [address] [facility], [place], [address], 03/05/2025 14:35:50 03/04/20 25 03/04/2025 CBC W/DIF F monocytes 5.1 % 1.0-15 .0 Not Available [facility] (Lab) [address] [facility], [place], [address], 03/05/2025 14:35:50 03/04/20 25 03/04/2025 CBC W/DIF F eosinophils 2.1 % 0.0-8. 0 Not Available [facility] (Lab) [address] [facility], [place], [address], 03/05/2025 14:35:50 03/04/20 25 03/04/2025 CBC W/DIF F basophils 0.6 % 0.0-2. 0 Not Available [facility] (Lab) [address] [facility], [place], [address], 03/05/2025 14:35:50 03/04/2003/04/2025 CBC W/DIF F immature granulocytes 0.5 % no define d refere nce range Immat ure Granu locyt es (IG) repre sents autom ated enume ratio n of Metam yeloc ytes, Myelo cytes and Promy elocy raven when IG is < 5%. Blast s are not inclu ded in IG and repor onesimo separ ately if prese nt. Not Available [facility] (Lab) [address] [facility], [place], [address], 03/05/2025 14:35:50 03/04/20 25 03/04/2025 CBC W/DIF F absolute neutrophils 4.1 10'3/ uL 1.5-8. 0 Not Available [facility] (Lab) [address] [facility], [place], [address], 03/05/2025 14:35:50 03/04/20 25 03/04/2025 CBC W/DIF F absolute lymphocytes 2.0 10'3/ uL 1.0-4. 0 Not Available [facility] (Lab) [address] [facility], [place], [address], 03/05/2025 14:35:50 03/04/20 25 03/04/2025 CBC W/DIF F absolute monocytes 0.3 10'3/ uL 0.2-1. 0 Not Available [facility] (Lab) [address] [facility], [place], [address], 03/05/2025 14:35:50 03/04/20 25 03/04/2025 CBC W/DIF F absolute eosinophils 0.1 10'3/ uL 0.0-0. 6 Not Available [facility] (Lab) [address] [facility], [place], [address], 03/05/2025 14:35:50 03/04/20 25 03/04/2025 CBC W/DIF F absolute basophils 0.0 10'3/ uL 0.0-0. 3 Not Available [facility] (Lab) [address] [facility], [place], [address], 03/05/2025 14:35:50 03/04/20 25 03/04/2025 CBC W/DIF F absolute immature granulocytes 0.0 10'3/ uL 0.00-0 .10 Refer ence range s for nonbi nary/ inter sex or unspe cifie d gende r patie nts have not been estab lishe d. Pleas e refer to the follo wing table for range s estab lishe d for cisge nder patie nts and evalu ate in the clini xander lee xt of the indiv idual patie nt: https ://la bhand book. nm.or g/gen derx Not Available [facility] (Lab) [address] [facility], [place], [address], 03/05/2025 14:35:50 03/04/2003/04/2025 HEPAT ITIS C ANTIB CARLEEN SCREE N, REFLE X TO CONFI RMATI ON hepatitis C antibody Non-re active non-re active Antib odies to HCV Not Detec onesimo, does not exclu de the possi bilit y of expos ure to HCV. Not Available [facility] (Lab) [address] [facility], [place], [address], 03/05/2025 14:35:51 03/04/2003/04/2025 HEPAT ITIS B SURFA CE ANTIG EN hepatitis B surface antigen Non-re active non-re active This assay was perfo rmed using [employer] ratio n reage nts and test kits. Value s obtai leland with other assay metho ds or kits canno t be used inter soler eably . Not Available [facility] (Lab) [address] [facility], [place], [address], 03/05/2025 14:35:52 03/04/2003/04/2025 HIV 1/2 ANTIG EN/AN TIBOD Y, REFLE X CONFI RMATI ON HIV antigen/anti body Nonrea ctive nonrea ctive HIV-1 antig en and HIV-1 /HIV- 2 antib odies were not detec onesimo. No labor atory evide nce of HIV infec tion. Not Available [facility] (Lab) [address] [facility], [place], [address], 03/05/2025 14:35:52 03/04/2003/04/2025 TSH, REFLE X FREE T4 TSH 1.28 uIU/m L 0.30-5 .33 Not Available [facility] (Lab) [address] [facility], [place], [address], 03/05/2025 14:35:53 03/04/20 25 03/04/2025 RUBEL LA IGG ANTIB CARLEEN, QUANT rubella antibodies, IgG Reacti ve reacti ve Not Available [facility] (Lab) [address] [facility], [place], [address], 03/05/2025 14:35:53 03/04/20 25 03/04/2025 RUBEL LA IGG ANTIB CARLEEN, QUANT rubella antibodies, IgG quant 28.3 IU/mL >=10 Non-r eacti ve (Non- Immun e) <10 IU/mL React phill (Immu ne) > or = 10 IU/mL Not Available [facility] (Lab) [address] [facility], [place], [address], 03/05/2025 14:35:53 03/04/20 25 03/04/2025 TYPE/ RH/SC REEN ABO/Rh type A POS Not Available [facility] (Lab) [address] [facility], [place], [address], 03/05/2025 14:35:54 03/04/20 25 03/04/2025 TYPE/ RH/SC REEN antibody screen NEG Not Available [facility] (Lab) [address] [facility], [place], [address], 03/05/2025 14:35:54 03/04/20 25 03/04/2025 TYPE/ RH/SC REEN exp date 2024 23:59 Not Available [facility] (Lab) [address] [facility], [place], [address], 03/05/2025 14:35:54 03/04/20 25 03/04/2025 RPR SCREE N, REFLE X TITER /CONF IRMAT ION RPR qualitative Nonrea ctive nonrea ctive Not Available [facility] (Lab) [address], [place], [address], 03/05/2025 14:35:54 03/04/2003/04/2025 HEMOG LOBIN A1C hemoglobin A1C 5.3 % 4.0-5. 6 The Ameri can Diabe raven Assoc iatio n recom mends that a prima ry goal of thera py lisaul d be a HBA1C of < 7% and that physi cians shoul d reeva luate the treat ment regim en in patie nts with HBA1C value s consi stent ly > 8%. <5.7% Nuria l 5.7 - 6.4% Incre ased risk for diabe raven >=6.5 % Diagn ostic of diabe raven <7.0% Goal of thera py >8.0% Actio n sugge sted Not Available [facility] (Lab) [address], [place], [address], 03/05/2025 14:35:55 03/05/2003/05/2025 CT/GC AND TRICH OMONA S VAGIN MILA (RRNA ), URINE chlamydia trachomatis, PCR Negati ve negati ve Not Available [facility] (Lab) [address], [place], [address], 03/06/2025 22:36:04 03/05/20 25 03/05/2025 CT/GC AND TRICH OMONA S VAGIN MILA (RRNA ), URINE neisseria gonorrhoeae, PCR Negati ve negati ve Not Available [facility] (Lab) [address], [place], [address], 03/06/2025 22:36:04 03/05/20 25 03/05/2025 CT/GC AND TRICH OMONA S VAGIN MILA (RRNA ), URINE trichomonas vaginalis ribosomal RNA (rrna) Negati ve negati ve Not Available [facility] (Lab) [address], [place], [address], 03/06/2025 22:36:04 03/05/20 25 03/05/2025 CULTU RE: URINE result report SEE RESULT S BELOW Test: Cultu re: Urine Speci men Sourc e: Urine - Clean Catch Speci men Type: Urine Speci men Date: 1317 Resul t Date: 2130 Resul t Statu s: Final resul t Abnor mal: No Resul ting Lab: [facility] [address] [facility] [address] Tel: CULTU RE ----- ----- ----- --- No growt h in 1 day (dete ction level of 10,00 0 colon ies / ml.) Not Available [facility] (Lab) [address] [facility], [place], [address], 03/06/2025 22:36:04 03/05/20 25 03/05/2025 drug scree n, urine Amphetamines : negati ve Not Available [facility] [address], [place], [address], 03/05/2025 13:06:10 03/05/20 25 03/05/2025 drug scree n, urine Cannabinoids : positi ve Not Available [facility] [address], [place], [address], 03/05/2025 13:06:10 03/05/20 25 03/05/2025 drug scree n, urine Cocaine: negati ve Not Available [facility] [address], [place], [address], 03/05/2025 13:06:10 03/05/20 25 03/05/2025 drug scree n, urine Opiates: negati ve Not Available [facility] [address], [place], [address], 03/05/2025 13:06:10 03/05/20 25 03/05/2025 drug scree n, urine Phenocyclidi ne: negati ve Not Available [address], [place], [address], 03/05/2025 13:06:10 03/05/20 25 03/05/2025 drug scree n, urine Barbiturates : negati ve Not Available [facility] [address], [place], [address], 03/05/2025 13:06:10 03/05/20 25 03/05/2025 drug scree n, urine Benzodiazepi dea: negati ve Not Available [facility] [address], [place], [address], 03/05/2025 13:06:10 03/05/20 25 03/05/2025 drug scree n, urine Ethanol: negati ve Not Available [facility] [address], [place], [address], 03/05/2025 13:06:10 03/05/20 25 03/05/2025 drug scree n, urine Hallucinogen s: negati ve Not Available [facility] [address], [place], [address], 03/05/2025 13:06:10 03/05/20 25 03/05/2025 drug scree n, urine Inhalants: negati ve Not Available [facility] [address], [place], [address], 03/05/2025 13:06:10 03/05/20 25 03/05/2025 drug scree n, urine Anabolic Steroids: negati ve Not Available [facility] [address], [place], [address], 03/05/2025 13:06:10 04/28/20 25 04/28/2025 CULTU RE: URINE result report SEE RESULT S BELOW Test: Cultu re: Urine Speci men Sourc e: Urine - Clean Catch Speci men Type: Urine Speci men Date: 2024 1307 Resul t Date: 2024 2146 Resul t Statu s: Final resul t Abnor mal: No Resul ting Lab: [facility] [address] [facility] [address] Tel: CULTU RE ----- ----- ----- --- No growt h in 1 day (dete ction level of 10,00 0 colon ies / ml.) Not Available [facility] (Lab) [address] [facility], [place], [address], 04/29/2025 22:50:16 06/25/20 25 06/25/2025 HEMAT OCRIT (HCT) HCT 31.9 % (based on docume nted legal sex) 34.0-4 5.0 low Not Available [facility] (Lab) [address] [place], [address], 06/26/2025 13:07:09 06/25/20 25 06/25/2025 HEMOG LOBIN (HGB) HGB 10.4 g/dL (based on docume nted legal sex) 11.6-1 5.4 low Not Available [facility] (Lab) [address] [place], [address], 06/26/2025 13:07:09 06/25/20 25 06/25/2025 GTT - GESTA MARQUES L SCREE N, ACOG OB glucose, 1 hour screen 112 mg/dL 70-135 Not Available [facility] (Lab) [address] [place], [address], 06/26/2025 13:07:10 06/25/20 25 06/25/2025 HIV 1/2 ANTIG EN/AN TIBOD Y, REFLE X CONFI RMATI ON HIV antigen/anti body Nonrea ctive nonrea ctive HIV-1 antig en and HIV-1 /HIV- 2 antib odies were not detec onesimo. No labor atory evide nce of HIV infec tion. Not Available [facility] (Lab) [address], [place], [address], 06/26/2025 13:07:10 06/25/20 25 06/25/2025 RPR SCREE N, REFLE X TITER /CONF IRMAT ION RPR qualitative Nonrea ctive nonrea ctive Not Available [facility] (Lab) [address] [facility], [place], [address], 06/26/2025 13:07:11 03/04/20 25 03/04/2025 US, obste tric, nucha l trans lucen cy No observ ation record ed. [address], [place], [address], 03/04/2025 12:51:34 03/04/20 25 03/04/2025 US, obsthector tric, 1st trime ster No observ ation record ed. [address], [place], [address], 03/04/2025 12:49:29 03/04/2003/04/2025 US, obste tric, follo w-up No observ ation record ed. [address], [place], [address], 03/08/2025 16:22:05 04/28/20 25 04/28/2025 US, obste tric, 2nd or 3rd trime ster No observ ation record ed. [facility] [address], [place], [address], 04/28/2025 18:35:16 04/28/20 25 04/28/2025 US, obste tric, 2nd or 3rd trime ster No observ ation record ed. [email or web address] [address], [place], [address], 04/28/2025 14:33:42 05/28/20 25 05/28/2025 US, obste tric, follo w-up No observ ation record ed. [facility] [address], [place], [address], 05/28/2025 14:43:14 05/28/20 25 05/28/2025 US, obste tric, follo w-up No observ ation record ed. [email or web address] [address], [place], [address], 05/28/2025 12:23:54 07/06/2007/06/2025 US, obste tric, follo w-up No observ ation record ed. [facility] [address], [place], [address], 07/06/2025 14:22:13 07/06/20 25 07/06/2025 , obste tric, follo w-up No observ ation record ed. [facility] [address], [place], [address], 07/10/2025 15:59:39 Result Notes None recorded. Problems Name Problem SNOMED Code Status Onset Date Resolution Date Notes Provider Name and Address Organization Details Recorded Time History of chlamydi al infectio n 266846458 Completed chl neg John vargas, [facility] 4 15:43:29 Low-lyin g placenta 594633967 Completed resolved Sakina Cantrell CNM [address], [place], [address], [place] [facility] 4 12:41:38 Pregnanc y 18205856 Completed 202310/27/2024 Bree vargas, [facility] 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 4 17:47:43 Mixed anxiety and depressi ve disorder 087448474 Active 2023 Corine Novak null, [facility] 4 12:29:58 Pregnanc y 90628542 Active 2024 Bree Nevarez null, [facility] 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 5 13:19:25 Problem Notes None recorded. Procedures Surgical History Date Name Laterality Status Provider Name and Address Organization Details Recorded Time 02/19/20 24 Date of Last Pap Smear completed Corine Novak [facility] 02/19/2024 15:34:35 12/26/19 23 Nexplanon Removal completed Jacey Chavez [facility] [address], [place], [address], [facility] 12/25/2022 15:19:15 09/07/19 23 Control Implant Insertion completed Jacey Chavez [facility] [address], [place], [address], [facility] 09/07/2022 14:46:07 08/05/19 11 Tonsillectomy completed Corine Novak [facility] 10/17/2023 12:48:17 Imaging Results None recorded. Procedure Notes None recorded. Medical Equipment None Reported. Allergies Allergen ID Allergen Name Allergen Category Reaction Reaction Severity Criticality Documentation Date Start Date Code Code System Note Provider Name and Address Organization Details Recorded Time [address] [facility] Not [facility] Not available Not available 04/01/20242001 RxNorm Corine Novak null, [facility] 18:25:07 76726 bisacodyl medicatio n rash Not available high 06/25/20252009 1596 RxNorm Not Available [facility] - External Data Service - prod 03:07:10 Medications Name Sig Start Date Stop [...] and Address Organization Details Last Updated DateTime 07/06/2025 162.56 cm 21.8 kg/m2 24207.23 g 104/67 mm[Hg] Clotilde Santillan [place] - [facility] 07/06/2025 12:30:33 Social History Question Answer Notes LastModified by Organizat ion Details LastModified Time Tobacco Smoking Status Never Smoker Sharon Eldridge [facility], [facility] 05/01/2023 15:09:00 If You Are [...] COVID-19 While That Case Was Ill? No [email or web address] Information n ot available 07/14/2021 In The 14 Days Before Symptom Onset, Have You Had Close Contact With A Person Who Is Under Investigation For COVID-19 While That Person Was Ill? No [email or web address] Information not available 07/14/2021 Have You Been To An Area Known To Be High Risk For COVID-19? No [email or web address] Information not available 07/14/2021 Are You Deaf Or Do You Have Serious Difficulty Hearing? No Information not available 03/15/2021 What Type Of Diet Are You Following? REGULAR Information n ot available 03/15/2021 Do You Use Your Seat Belt Or Car Seat Routinely? Yes Information not available 03/15/2021 Are You Sexually Active? Yes Information not available 05/01/2023 Do You Have Smoke And Carbon Monoxide Detectors In Your Home? Yes Information not available 03/15/2021 Do You Use Sunscreen Routinely? Yes Information not available 03/15/2021 Has Tobacco Cessation Counseling Been Provided? No [email or web address] Information not available 05/01/2023 Do You Have Difficulty Walking Or Climbing Stairs? No [email or web address] Information not available 05/01/2023 Sex: Unknown Functional Status Question Answer Note LastModified by Organizat ion Details LastModified Time Do you use any illicit or recreational drugs? Yes marijuana [email or web address] Information not available 02/19/2024 Do you or have you ever used any other forms of tobacco or nicotine? Yes [email or web address] Information not available 02/19/2024 What is your level of alcohol consumption? None Information not available 03/15/2021 Are you able to walk independently without assistance or assistive devices? [email or web address] Information not available 03/15/2021 Are you able to care for yourself independently? Yes [email or web address] Information not available 05/01/2023 Do you have difficulty dressing, bathing, grooming, or toileting? No [email or web address] Information not available 05/01/2023 Do you or have you ever used e-cigarettes or vape? Current user of electronic cigarettes [email or web address] Information not available 02/19/2024 What is your exercise level? None Information not available 03/15/2021 Mental Status Question Answer Note LastModified by Organization D etails LastModified Time Do you feel stressed (tense, restless, nervous, or anxious, or unable to sleep at night)? [id number] Information not available 03/15/2021 Family History Relationship [...] ICD10 Code Diagnosis IMO Codes Diagnosis Note [id number] Sakina Cantrell CNM [facility] [address],[place] [address] 06/25/2025 11:15:34 06/25/2025 11:57:57 Gestation period, 29 weeks 47645249 Z3A.29 [id number] GUANAKITO BARRETT MD [facility] [address],[place] [address] 07/06/2025 11:27:10 07/06/2025 12:36:34 Observational assessment [id number] Z03.74 Z3A.30 [id number] 105746 GUANAKITO BARRETT MD [facility] [address],[place] [address] 07/06/2025 11:27:24 07/06/2025 12:57:26 care status 151503366 Z34.83 [id number] Health Concerns Section Related Observation LastModified by Organization Detai ls LastModified Time None Recorded Concern Status LastModified by Organization Details LastModified Time None Recorded Payers Encounter Date Sequence Insurance Name Policy Number Policy Shine Covered Member ID Shine Member ID Guarantor Name 07/06/2025 1 [facility] [id number] Cornel Gary [id number] S Mae Frances 07/06/2025 2 [place] [employer] [place] Mae Frances [id number] Mae Frances Notes Date Note Type Note Provider Name and Address Organization Details Recorded Time 07/06/2025 text/html Generic HPI TemplateReported by Patient GUANAKITO BARRETT MD [address], [place], [address], [facility] 07/06/2025 12:56:14 OBGyn Episode Ob Episode Information Episode Created Date Number of Fetuses Patient Bloodtype Patient rh Status Prepregnancy Weight lbs Domestic Partner Domestic Partner Phone Father Name Invisible Braces Orthodontist Status 02/25/20 25 1 A Positive 111 OPEN Fetus Data First Name Last Name Admitted to NICU Weight (g) Sex Living Outcome Pediatric Complications Fetus ID Race Codes Race Delivery Type [id number] Problems Problem Notes +THC in urine Problem Name Start Date End Date Resolution 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 [id number] 03 + 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 2023 [...] Weight in lbs Pre/Post Dialysis Refused Weight 112.992742503358 BP Diastolic BP Location Tested BP Systolic BP Type 62 R arm 112 sitting Fetus Heart Rate Present Fetus Movement A No Comments Flowsheet Date 03/10/2025 Frias Score Blood Edema Fundus Height Fundus Units Glucose Ketones Leukocytes Nitrite Labor Signs Protein Cervic Dilation Cervic Effacement Cervic Station Type Weight in lbs Pre/Post Dialysis Refused 113.028785165593 BP Diastolic BP Location Tested BP Systolic [...] Weight in lbs Pre/Post Dialysis Refused Weight 115.827618035633 BP Diastolic BP Location Tested BP Systolic [...] Type Weight in lbs Pre/Post Dialysis Refused 119.618719476553 BP Diastolic BP Location Tested BP Systolic [...] Type Weight in lbs Pre/Post Dialysis Refused 123.157793989878 BP Diastolic BP Location Tested BP Systolic [...] Weight in lbs Pre/Post Dialysis Refused Weight 127.973951874458 BP Diastolic BP Location Tested BP Systolic [...] Type Weight in lbs Pre/Post Dialysis Refused 128.357401376120 BP Diastolic BP Location Tested BP Systolic [...]
--- OUTSIDE RECORDS SUMMARY | 2025-07-30 15:30 | XMS_ITS | Encounter Summary ---
Author Organization [facility] Address [address] [place] [address] Care Team Providers Care Cardiac Monitor Technician Name Role Phone Unavailable Primary Care Provider Unavailabl e Encounter Details Date Type Department Care Team (Late st Contact Info) Description 2002 Outpatient Historical [facility] Pediatric[facility] - [facility] [address] [address] Rodger Verma MD [id number] [place] [address] Social History Tobacco Use Types Packs/Day Years Used Date Smoking Tobacco: Never Assessed Comments Unknown Sex and Gender Information Value Date Recorded Sex Assigned at Not on file Legal Sex Female 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
--- OUTSIDE RECORDS SUMMARY | 2025-07-30 15:30 | XMS_ITS | Encounter Summary ---
Author Organization [facility] Address [address] Attn: Epic [place] [address] Care Team Providers Care Waxer Name Role Phone Unavailable Primary Care Provider Unavailabl e Encounter Details Date Type Department Care Team (Late st Contact Info) Description 2002 Inpatient Historical Luci, Rodger Carter MD [address] [place] [address] Sakina Stoddard MD [address] [place] [address] SINGL BORN IN HOSP-NO C/DELIVERY (Primary Dx) Social History Tobacco Use Types Packs/Day Years Used Date Smoking Tobacco: Never Assessed Comments Unknown Sex and Gender Information Value Date Recorded Sex Assigned at Not on file Legal Sex Female 2:53 AM [employer] DIP[employer] Gender Identity Not on file Sexual Orientation Not on file documented as of this encounter Plan of Treatment Not on file documented as of this encounter Visit Diagnoses Diagnosis Single liveborn, born in hospital, delivered without mention of delivery- Primary documented in this encounter
--- OUTSIDE RECORDS SUMMARY | 2025-07-30 15:30 | XMS_ITS | Continuity of Care Document ---
Author Organization [facility] Address [address] [place] [place] [address] Assessment No assessment recorded. Plan of Treatment [...] US, obstetr ic, follow- up 2024 025 [email or web address] [place], [address], [address], [place], [address], 05/28/2025 14:13:06 Medication Orders None recorde d. Patient TargetsNo targets recorded. Patient InstructionsNo instructions recorded. Reason for Referral None Reported. Results Created Date Observation Date Name Description Value Unit Range Abnormal Flag Note LastModifiedBy Organization Detail LastModifiedTime 03/12/2003/12/2025 [UNIT Y] ANEUP LOIDY NIPT fraction 10.3% normal Not Available [address], [place], [address], 03/12/2025 00:32:43 03/12/20 25 03/12/2025 [UNIT Y] ANEUP LOIDY NIPT 22Q11.2 microdeletio n LOW RISK <1 in 10,000 normal Not Available [facility] [address], [place], [address], 03/12/2025 00:32:43 03/12/20 25 03/12/2025 [UNIT Y] ANEUP LOIDY NIPT sex chromosome aneuploidy NOT DETECT ED normal Not Available [facility] [address], [place], [address], 03/12/2025 00:32:43 03/12/20 25 03/12/2025 [UNIT Y] ANEUP LOIDY NIPT monosomy X LOW RISK <1 in 10,000 normal Not Available [address] [facility] [address], [place], [address], 03/12/2025 00:32:43 03/12/20 25 03/12/2025 [UNIT Y] ANEUP LOIDY NIPT trisomy 13 LOW RISK <1 in 10,000 normal Not Available [address] [facility] [address], [place], [address], 03/12/2025 00:32:43 03/12/20 25 03/12/2025 [UNIT Y] ANEUP LOIDY NIPT trisomy 18 LOW RISK <1 in 10,000 normal Not Available [address] [address], [place], [address], 03/12/2025 00:32:43 03/12/20 25 03/12/2025 [UNIT Y] ANEUP LOIDY NIPT trisomy 21 LOW RISK <1 in 10,000 normal Not Available [address] [address], [place], [address], 03/12/2025 00:32:43 03/12/20 25 03/12/2025 [UNIT Y] ANEUP LOIDY NIPT sex FEMALE normal Not Available [facility] [address], [place], [address], 03/12/2025 00:32:43 03/12/20 25 03/12/2025 [UNIT Y] ANEUP LOIDY NIPT gestation SINGLE TON normal Not Available [address] [address], [place], [address], 03/12/2025 00:32:43 03/12/20 25 03/12/2025 [UNIT Y] ANEUP LOIDY NIPT for detailed report, see pdf See PDF normal Not Available [address] [address], [place], [address], 03/12/2025 00:32:43 03/04/20 25 03/04/2025 CBC W/DIF F WBC 6.6 10'3/ uL 3.5-10 .5 Not Available [facility] (Lab) [address], [place], [address], 03/05/2025 14:35:50 03/04/20 25 03/04/2025 CBC W/DIF F RBC 4.56 10'6/ uL (based on docume nted legal sex) 3.80-5 .20 Not Available [facility] (Lab) [address], [place], [address], 03/05/2025 14:35:50 03/04/20 25 03/04/2025 CBC W/DIF F HGB 12.2 g/dL (based on docume nted legal sex) 11.6-1 5.4 Not Available [facility] (Lab) [address], [place], [address], 03/05/2025 14:35:50 03/04/20 25 03/04/2025 CBC W/DIF F HCT 36.8 % (based on docume nted legal sex) 34.0-4 5.0 Not Available [facility] (Lab) [address], [place], [address], 03/05/2025 14:35:50 03/04/20 25 03/04/2025 CBC W/DIF F MCV 80.7 fL 80.0-9 9.0 Not Available [facility] (Lab) [address] [facility], [place], [address], 03/05/2025 14:35:50 03/04/20 25 03/04/2025 CBC W/DIF F MCH 26.8 pg 27.0-3 4.0 low Not Available [facility] (Lab) [address] [facility], [place], [address], 03/05/2025 14:35:50 03/04/20 25 03/04/2025 CBC W/DIF F MCHC 33.2 g/dL 32.0-3 5.5 Not Available [facility] (Lab) [address] [facility], [place], [address], 03/05/2025 14:35:50 03/04/20 25 03/04/2025 CBC W/DIF F RDW 14.6 % 11.0-1 5.0 Not Available [facility] (Lab) [address] [facility], [place], [address], 03/05/2025 14:35:50 03/04/20 25 03/04/2025 CBC W/DIF F plt 318 10'3/ uL 150-40 0 Not Available [facility] (Lab) [address] [facility], [place], [address], 03/05/2025 14:35:50 03/04/20 25 03/04/2025 CBC W/DIF F MPV 10.8 fL 8.8-12 .1 Not Available [facility] (Lab) [address] [facility], [place], [address], 03/05/2025 14:35:50 03/04/20 25 03/04/2025 CBC W/DIF F NRBC's 0.0 % 0.0 Not Available [facility] (Lab) [address] [facility], [place], [address], 03/05/2025 14:35:50 03/04/20 25 03/04/2025 CBC W/DIF F absolute NRBCs 0.0 10'3/ uL no refere nce range establ ished Not Available [facility] (Lab) [address] [facility], [place], [address], 03/05/2025 14:35:50 03/04/20 25 03/04/2025 CBC W/DIF F neutrophils 62.2 % 34.0-7 3.0 Not Available [facility] (Lab) [address] [facility], [place], [address], 03/05/2025 14:35:50 03/04/20 25 03/04/2025 CBC W/DIF F lymphocytes 29.5 % 15.0-5 0.0 Not Available [facility] (Lab) [address] [facility], [place], [address], 03/05/2025 14:35:50 03/04/20 25 03/04/2025 CBC W/DIF F monocytes 5.1 % 1.0-15 .0 Not Available [facility] (Lab) [address] [facility], [place], [address], 03/05/2025 14:35:50 03/04/20 25 03/04/2025 CBC W/DIF F eosinophils 2.1 % 0.0-8. 0 Not Available [facility] (Lab) [address] [facility], [place], [address], 03/05/2025 14:35:50 03/04/20 25 03/04/2025 CBC W/DIF F basophils 0.6 % 0.0-2. 0 Not Available [facility] (Lab) [address] [facility], [place], [address], 03/05/2025 14:35:50 03/04/20 25 03/04/2025 CBC W/DIF [...] separ ately if prese nt. Not Available [facility] (Lab) [address] [facility], [place], [address], 03/05/2025 14:35:50 03/04/20 25 03/04/2025 CBC W/DIF F absolute neutrophils 4.1 10'3/ uL 1.5-8. 0 Not Available [facility] (Lab) [address] [facility], [place], [address], 03/05/2025 14:35:50 03/04/20 25 03/04/2025 CBC W/DIF F absolute lymphocytes 2.0 10'3/ uL 1.0-4. 0 Not Available [facility] (Lab) [address] [facility], [place], [address], 03/05/2025 14:35:50 03/04/20 25 03/04/2025 CBC W/DIF F absolute monocytes 0.3 10'3/ uL 0.2-1. 0 Not Available [facility] (Lab) [address] [facility], [place], [address], 03/05/2025 14:35:50 03/04/20 25 03/04/2025 CBC W/DIF F absolute eosinophils 0.1 10'3/ uL 0.0-0. 6 Not Available [facility] (Lab) [address] [facility], [place], [address], 03/05/2025 14:35:50 03/04/20 25 03/04/2025 CBC W/DIF F absolute basophils 0.0 10'3/ uL 0.0-0. 3 Not Available [facility] (Lab) [address] [facility], [place], [address], 03/05/2025 14:35:50 03/04/20 25 03/04/2025 CBC W/DIF [...] bhand book. nm.or g/gen derx Not Available [facility] (Lab) [address] [facility], [place], [address], 03/05/2025 14:35:50 03/04/2003/04/2025 HEPAT ITIS C ANTIB CARLEEN SCREE N, REFLE X TO CONFI RMATI ON hepatitis C antibody Non-re active non-re active Antib odies to HCV Not Detec onesimo, does not exclu de the possi bilit y of expos ure to HCV. Not Available [facility] (Lab) [address] [facility], [place], [address], 03/05/2025 14:35:51 03/04/2003/04/2025 HEPAT ITIS B SURFA CE ANTIG EN hepatitis B surface antigen Non-re active non-re active This assay was perfo rmed using [employer] n reage nts and test kits. Value s obtai leland with other assay metho ds or kits canno t be used inter soler eably . Not Available [facility] (Lab) [address] [facility], [place], [address], 03/05/2025 14:35:52 03/04/2003/04/2025 HIV 1/2 ANTIG EN/AN TIBOD Y, REFLE X CONFI RMATI ON HIV antigen/anti body Nonrea ctive nonrea ctive HIV-1 antig en and HIV-1 /HIV- 2 antib odies were not detec onesimo. No labor atory evide nce of HIV infec tion. Not Available [facility] (Lab) [address] [facility], [place], [address], 03/05/2025 14:35:52 07/31/20 25 03/04/2025 TSH, REFLE X FREE T4 TSH 1.28 uIU/m L 0.30-5 .33 Not Available [facility] (Lab) [address] [facility], [place], [address], 03/05/2025 14:35:53 03/04/20 25 03/04/2025 RUBEL LA IGG ANTIB CARLEEN, QUANT rubella antibodies, IgG Reacti ve reacti ve Not Available [facility] (Lab) [address] [facility], [place], [address], 03/05/2025 14:35:53 03/04/20 25 03/04/2025 RUBEL LA IGG ANTIB CARLEEN, QUANT rubella antibodies, IgG quant 28.3 IU/mL >=10 Non-r eacti ve (Non- Immun e) <10 IU/mL React phill (Immu ne) > or = 10 IU/mL Not Available [facility] (Lab) [address] [facility], [place], [address], 03/05/2025 14:35:53 03/04/20 25 03/04/2025 TYPE/ RH/SC REEN ABO/Rh type A POS Not Available [facility] (Lab) [address] [facility], [place], [address], 03/05/2025 14:35:54 03/04/20 25 03/04/2025 TYPE/ RH/SC REEN antibody screen NEG Not Available [facility] (Lab) [address] [facility], [place], [address], 03/05/2025 14:35:54 03/04/20 25 03/04/2025 TYPE/ RH/SC REEN exp date 2024 23:59 Not Available [facility] (Lab) [address] [facility], [place], [address], 03/05/2025 14:35:54 03/04/20 25 03/04/2025 RPR SCREE N, REFLE X TITER /CONF IRMAT ION RPR qualitative Nonrea ctive nonrea ctive Not Available [facility] (Lab) [address] [facility], [place], [address], 03/05/2025 14:35:54 03/04/2003/04/2025 HEMOG LOBIN A1C hemoglobin [...] >8.0% Actio n sugge sted Not Available [facility] (Lab) [address] [facility], [place], [address], 03/05/2025 14:35:55 03/05/20 25 03/05/2025 CT/GC AND TRICH OMONA S VAGIN MILA (RRNA ), URINE chlamydia trachomatis, PCR Negati ve negati ve Not Available [facility] (Lab) [address] [facility], [place], [address], 03/06/2025 22:36:04 03/05/20 25 03/05/2025 CT/GC AND TRICH OMONA S VAGIN MILA (RRNA ), URINE neisseria gonorrhoeae, PCR Negati ve negati ve Not Available [facility] (Lab) [address] [facility], [place], [address], 03/06/2025 22:36:04 03/05/20 25 03/05/2025 CT/GC AND TRICH OMONA S VAGIN MILA (RRNA ), URINE trichomonas vaginalis ribosomal RNA (rrna) Negati ve negati ve Not Available [facility] (Lab) [address] [facility], [place], [address], 03/06/2025 22:36:04 03/05/20 25 03/05/2025 CULTU RE: URINE result report SEE RESULT S BELOW Test: Cultu re: Urine Speci men Sourc e: Urine - Clean Catch Speci men Type: Urine Speci men Date: 1317 Resul t Date: 2130 Resul t Statu s: Final resul t Abnor mal: No Resul ting Lab: [facility] [address] [facility] [address] Tel: CULTU RE ----- ----- ----- --- No growt h in 1 day (dete ction level of 10,00 0 colon ies / ml.) Not Available [facility] (Lab) [address] [facility], [place], [address], 03/06/2025 22:36:04 03/05/20 25 03/05/2025 drug scree n, urine Amphetamines : negati ve Not Available [place] [address], [place], [address], 03/05/2025 13:06:10 03/05/20 25 03/05/2025 drug scree n, urine Cannabinoids : positi ve Not Available [place] [address], [place], [address], 03/05/2025 13:06:10 03/05/20 25 03/05/2025 drug scree n, urine Cocaine: negati ve Not Available [place] [address], [place], [address], 03/05/2025 13:06:10 03/05/20 25 03/05/2025 drug scree n, urine Opiates: negati ve Not Available [place] [address], [place], [address], 03/05/2025 13:06:10 03/05/20 25 03/05/2025 drug scree n, urine Phenocyclidi ne: negati ve Not Available [place] [address], [place], [address], 03/05/2025 13:06:10 03/05/20 25 03/05/2025 drug scree n, urine Barbiturates : negati ve Not Available [place] [address], [place], [address], 03/05/2025 13:06:10 03/05/20 25 03/05/2025 drug scree n, urine Benzodiazepi dea: negati ve Not Available [place] [address], [place], [address], 03/05/2025 13:06:10 03/05/20 25 03/05/2025 drug scree n, urine Ethanol: negati ve Not Available [place] [address], [place], [address], 03/05/2025 13:06:10 03/05/20 25 03/05/2025 drug scree n, urine Hallucinogen s: negati ve Not Available [place] [address], [place], [address], 03/05/2025 13:06:10 03/05/20 25 03/05/2025 drug scree n, urine Inhalants: negati ve Not Available [place] [address], [place], [address], 03/05/2025 13:06:10 03/05/20 25 03/05/2025 drug scree n, urine Anabolic Steroids: negati ve Not Available [place] [address], [place], [address], 03/05/2025 13:06:10 04/28/20 25 04/28/2025 CULTU RE: URINE result report SEE RESULT S BELOW Test: Cultu re: Urine Speci men Sourc e: Urine - Clean Catch Speci men Type: Urine Speci men Date: 2024 1307 Resul t Date: 2024 2146 Resul t Statu s: Final resul t Abnor mal: No Resul ting Lab: [facility] [address] [facility] [address] Tel: CULTU RE ----- ----- ----- --- No growt h in 1 day (dete ction level of 10,00 0 colon ies / ml.) Not Available [facility] (Lab) [address] [facility], [place], [address], 04/29/2025 22:50:16 03/04/2003/04/2025 US, obste tric, nucha l trans lucen cy No observ ation record ed. [email or web address] [place] [address], [place], [address], 03/04/2025 12:51:34 03/04/20 25 03/04/2025 US, obste tric, 1st trime ster No observ ation record ed. [email or web address] [place] [address], [place], [address], 03/04/2025 12:49:29 03/04/20 25 03/04/2025 US, obste tric, follo w-up No observ ation record ed. [email or web address] [address], [place], [address], 03/08/2025 16:22:05 04/28/20 25 04/28/2025 US, obste tric, 2nd or 3rd trime ster No observ ation record ed. [facility] [address], [place], [address], 04/28/2025 18:35:16 04/28/20 25 04/28/2025 US, obste tric, 2nd or 3rd trime ster No observ ation record ed. [email or web address] [address], [place], [address], 04/28/2025 14:33:42 05/28/2005/28/2025 US, obste tric, follo w-up No observ ation record ed. [facility] [address], [place], [address], 05/28/2025 14:43:14 05/28/20 25 05/28/2025 US, obste tric, follo w-up No observ ation record ed. [email or web address] [address], [place], [address], 05/28/2025 12:23:54 07/06/20 25 07/06/2025 US, obste tric, follo w-up No observ ation record ed. [facility] [address], [place], [address], 07/06/2025 14:22:13 07/06/20 25 07/06/2025 US, obste tric, follo w-up No observ ation record ed. [facility] [address], [place], [address], 07/10/2025 15:59:39 Result Notes None recorded. Problems Name Problem SNOMED Code Status Onset Date Resolution Date Notes Provider Name and Address Organization Details Recorded Time History of chlamydi al infectio n 469539999 Completed chl neg John vargas, [facility] 15:43:29 Low-lyin g placenta 370659422 Completed resolved Sakina Cantrell CNM [address], [place], [address], [facility] 12:41:38 Pregnanc y 14396095 Completed 202310/27/2024 Bree vargas, [facility] 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 4 17:47:43 Mixed anxiety and depressi ve disorder 265204893 Active 2023 Corine Novak null, [facility] 4 12:29:58 Pregnanc y 14818006 Active 2024 Bree Nevarez null, [facility] 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 5 13:19:25 Problem Notes None recorded. Procedures Surgical History Date Name Laterality Status Provider Name and Address Organization Details Recorded Time 02/19/20 24 Date of Last Pap Smear completed Corine Novak [facility] 02/19/2024 15:34:35 12/26/19 23 Nexplanon Removal completed Jacey Chavez [facility] [address], [place], [address], [facility] 12/25/2022 15:19:15 09/07/19 23 Control Implant Insertion completed Jacey Chavez [facility] [address], [place], [address], [facility] 09/07/2022 14:46:07 08/05/19 11 Tonsillectomy completed Corine Novak [facility] 10/17/2023 12:48:17 Imaging Results None recorded. Procedure Notes None recorded. Medical Equipment None Reported. Allergies Allergen ID Allergen Name Allergen Category Reaction Reaction Severity Criticality Documentation Date Start Date Code Code System Note Provider Name and Address Organization Details Recorded Time [address] [facility] Not available Not available Not available 04/01/20242001 RxNorm Corine Novak [place] - [facility] 4 18:25:07 87462 bisacodyl medicatio n rash Not available high 06/25/20252009 1596 RxNorm Not Available alton - External Data Service - prod 5 [...] day by oral route for 7 days. 03/055 completed Not Available Not Available Not Available [...] Address Organization Details Last Updated DateTime 05/28/2025 08495.75097 g 125/76 mm[Hg] Clotilde Santillan PA - [facility] 05/28/2025 11:40:46 Social History Question Answer Notes LastModified by Organizat ion Details LastModified Time Tobacco Smoking Status Never Smoker Sharon Hickeydiana vargas, [facility] 05/01/2023 15:09:00 If You Are , What Was Your Level Of Alcohol Consumption Prior To ? Occasional [email or web address] Information not available 02/19/2024 Are You Blind Or Do You Have Difficulty Seeing? No Information n ot available 03/15/2021 What Is Your Level Of Caffeine Consumption? None Information not available 03/15/2021 In The 14 Days Before Symptom Onset, Have You Had Close Contact With A Laboratory-confirm ed COVID-19 While That Case Was Ill? No [email or web address] Information n ot available 07/14/2021 In The 14 Days Before Symptom Onset, Have You Had Close Contact With A Person Who Is Under Investigation For COVID-19 While That Person Was Ill? No [email or web address] Information not available 07/14/2021 Have You Been [...] available 03/15/2021 Are You Sexually Active? Yes [email or web address] Information not available 05/01/2023 Do You Have Smoke And Carbon Monoxide Detectors In Your Home? Yes Information not available 03/15/2021 Do You Use Sunscreen Routinely? Yes Information not available 03/15/2021 Has Tobacco Cessation Counseling Been Provided? No [email or web address] Information not available 05/01/2023 Do You Have Difficulty Walking Or Climbing Stairs? No [email or web address] Information not available 05/01/2023 Sex: Unknown Functional Status Question Answer Note LastModified by Organizat ion Details LastModified Time Do you use any illicit or recreational drugs? Yes marijuana [email or web address] Information not available 02/19/2024 Do you or have you ever used any other forms of tobacco or nicotine? Yes [email or web address] Information not available 02/19/2024 What is your level of alcohol consumption? None Information not available 03/15/2021 Are you able to walk independently without assistance or assistive devices? [email or web address] Information not available 03/15/2021 Are you able to care for yourself independently? Yes [email or web address] Information not available 05/01/2023 Do you have difficulty dressing, bathing, grooming, or toileting? No [email or web address] Information not available 05/01/2023 Do you or have you ever used e-cigarettes or vape? Current user of electronic cigarettes [email or web address] Information not available 02/19/2024 What is your exercise level? None Information not available 03/15/2021 Mental Status Question Answer Note LastModified by Organization D etails LastModified Time Do you feel stressed (tense, restless, nervous, or anxious, or unable to sleep at night)? [id number] Information not available 03/15/2021 Family History Relationship [...] ICD10 Code Diagnosis IMO Codes Diagnosis Note [id number] Jones Koenig MD [place] [address],[place] [address] 04/28/2025 11:37:51 04/28/2025 12:54:31 Screening status 491061704 Z36.3 Z3A.20 9541025125 [id number] [facility] [address],[place] [address] 04/28/2025 11:39:11 04/28/2025 12:57:05 Gestation period, 20 weeks 83163954 Z3A.20 6745196 741084 Jones Koenig MD [place] [address],[place] [address] 05/28/2025 11:01:00 05/28/2025 11:35:34 anatomy study 096728929 Z36.2 O35.8XX0 Z3A.25 [id number] 700261 Sakina Cantrell [facility] [address],[place] [address] 05/28/2025 11:01:17 05/28/2025 12:11:51 Gestation period, 25 weeks 32024575 Z3A.25 [id number] Health Concerns Section Related Observation LastModified by Organization Detai ls LastModified Time None Recorded Concern Status LastModified by Organization Details LastModified Time None Recorded Payers Encounter Date Sequence Insurance Name Policy Number Policy Shine Covered Member ID Shine Member ID Guarantor Name 05/28/2025 1 [place] [id number] 1 Cornel Gary [id number] S Mae Frances 05/28/2025 2 [place] [employer] [place] Mae Frances [id number] Mae Frances Notes Date Note Type Note Provider Name and Address Organization Details Recorded Time 05/28/2025 text/html Generic HPI TemplateReported by Patient Sakina Arroyo Óscar, ROBBY [address], [place], [address], [facility] 05/28/2025 12:06:11 OBGyn Episode Ob Episode Information Episode Created Date Number of Fetuses Patient Bloodtype Patient rh Status Prepregnancy Weight lbs Domestic Partner Domestic Partner Phone Father Name Executive Candidate Developer Status 02/25/20 25 1 A Positive 111 OPEN Fetus Data First Name Last Name Admitted to NICU Weight (g) Sex Living Outcome Pediatric Complications Fetus ID Race Codes Race Delivery Type [id number] Problems Problem Notes +THC in urine Problem Name Start Date End Date Resolution 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 320067 03 + 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 2023 [...] Weight in lbs Pre/Post Dialysis Refused Weight 112.990784778335 BP Diastolic BP Location Tested BP Systolic BP Type 62 R arm 112 sitting Fetus Heart Rate Present Fetus Movement A No Comments Flowsheet Date 03/10/2025 Frias Score Blood Edema Fundus Height Fundus Units Glucose Ketones Leukocytes Nitrite Labor Signs Protein Cervic Dilation Cervic Effacement Cervic Station Type Weight in lbs Pre/Post Dialysis Refused 113.596861913140 BP Diastolic BP Location Tested BP Systolic BP Type 63 L arm 106 sitting Fetus Heart Rate Present Fetus Movement A Yes Comments reviewed US, sp was at [facility], appt got rescheduledpt has hx of [...] Weight in lbs Pre/Post Dialysis Refused Weight 115.717492800954 BP Diastolic BP Location Tested BP Systolic [...] Type Weight in lbs Pre/Post Dialysis Refused 119.781537388781 BP Diastolic BP Location Tested BP Systolic [...] Type Weight in lbs Pre/Post Dialysis Refused 123.498738638976 BP Diastolic BP Location Tested BP Systolic [...] Weight in lbs Pre/Post Dialysis Refused Weight 127.311821071698 BP Diastolic BP Location Tested BP Systolic [...] Type Weight in lbs Pre/Post Dialysis Refused 128.684170130692 BP Diastolic BP Location Tested BP Systolic [...]
--- OUTSIDE RECORDS SUMMARY | 2025-07-30 15:30 | XMS_ITS | Encounter Summary ---
Author Organization [facility] Address 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
--- OUTSIDE RECORDS SUMMARY | 2025-07-30 15:30 | XMS_ITS | Clinical Summary ---
Author Organization [facility] Address [address] [place] [address] Care Team Providers Care Door Closer Name Role Phone None, Physician Primary Care Provider Unavailabl e Source Comments [facility],non-owned Affiliates and Associated Physician Practices is amultiple site organization consisting of ambulatory clinics and hospital sitesin [place], [place], [place] and [place]. This disclosure is being madepursuant to the Care Everywhere program and may not contain all information available regarding this patient. Last updated 18.[facility] [employer] Allergies Active Allergy Reactions Criticality Noted Date [...] as an outpatient with Dr. 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 F with DMDD, Bipolar disorder [...] F/u with [facility] on Saturday Jade, Quality Rn at [facility] ([phone]) Counseling regarding goals of care 01/28/2012 Overview [...] transfer to [facility] directly will send patient home with close outpatient follow-up with current Psychiatrist, psychiatry, as well as behavior charts and home schedule. Mother stated understanding and voiced agreement. 01/31- No bed available for months at [facility], pending biopsy results, will send patient home with daily bowel regimen, diary, and close out patient follow-up. Behavior disorder 01/25/2012 Overview (03/26/2012): Followed by Dr. Nilsa Rivera @[phone], ALT# [phone]. Spoken to during the 01/24 admission to [...] until a bed is available at [facility]. 03/24/[address] Nilsa Rivera @[phone], ALT# [phone], Psychiatrist taking care of Mae. She informed [...] bowel movements. Social/Behavioral for placement at [facility] was explored but no bed was available. 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
--- OUTSIDE RECORDS SUMMARY | 2025-07-30 15:30 | XMS_ITS | Encounter Summary ---
Author Organization [facility] Address 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
--- OUTSIDE RECORDS SUMMARY | 2025-07-30 15:30 | XMS_ITS | Continuity of Care Document ---
Author Organization [facility] Address [address] [place] [address] Assessment No assessment recorded. Plan of Treatment [...] Abnormal Flag Note LastModifiedBy Organization Detail LastModifiedTime 03/12/20 25 03/12/2025 [UNIT Y] ANEUP LOIDY NIPT fraction 10.3% normal Not Available Drew muñiz [address], [place], [address], 03/12/2025 00:32:43 03/12/20 25 03/12/2025 [UNIT Y] ANEUP LOIDY NIPT 22Q11.2 microdeletio n LOW RISK <1 in 10,000 normal Not Available Sohan young [address], [place], [address], 03/12/2025 00:32:43 03/12/20 25 03/12/2025 [UNIT Y] ANEUP LOIDY NIPT sex chromosome aneuploidy NOT DETECT ED normal Not Available [facility] [address], [place], [address], 03/12/2025 00:32:43 03/12/20 25 03/12/2025 [UNIT Y] ANEUP LOIDY NIPT monosomy X LOW RISK <1 in 10,000 normal Not Available [facility] [address], [place], [address], 03/12/2025 00:32:43 03/12/20 25 03/12/2025 [UNIT Y] ANEUP LOIDY NIPT trisomy 13 LOW RISK <1 in 10,000 normal Not Available [facility] [address], [place], [address], 03/12/2025 00:32:43 03/12/20 25 03/12/2025 [UNIT Y] ANEUP LOIDY NIPT trisomy 18 LOW RISK <1 in 10,000 normal Not Available [facility] [address], [place], [address], 03/12/2025 00:32:43 03/12/20 25 03/12/2025 [UNIT Y] ANEUP LOIDY NIPT trisomy 21 LOW RISK <1 in 10,000 normal Not Available [facility] [address], [place], [address], 03/12/2025 00:32:43 03/12/20 25 03/12/2025 [UNIT Y] ANEUP LOIDY NIPT sex FEMALE normal Not Available [facility] [address], [place], [address], 03/12/2025 00:32:43 03/12/20 25 03/12/2025 [UNIT Y] ANEUP LOIDY NIPT gestation SINGLE TON normal Not Available [facility] [address], [place], [address], 03/12/2025 00:32:43 03/12/20 25 03/12/2025 [UNIT Y] ANEUP CHELSEA NIPT for detailed report, see pdf See PDF normal Not Available [facility] [address], [place], [address], 03/12/2025 00:32:43 03/04/2003/04/2025 CBC W/DIF F WBC 6.6 10'3/ uL 3.5-10 .5 Not Available [facility] (Lab) [address], [place], [address], 03/05/2025 14:35:50 03/04/20 25 03/04/2025 CBC W/DIF F RBC 4.56 10'6/ uL (based on docume nted legal sex) 3.80-5 .20 Not Available [facility] (Lab) [address], [place], [address], 03/05/2025 14:35:50 03/04/20 25 03/04/2025 CBC W/DIF F HGB 12.2 g/dL (based on docume nted legal sex) 11.6-1 5.4 Not Available [facility] (Lab) [address], [place], [address], 03/05/2025 14:35:50 03/04/20 25 03/04/2025 CBC W/DIF F HCT 36.8 % (based on docume nted legal sex) 34.0-4 5.0 Not Available [facility] (Lab) [address], [place], [address], 03/05/2025 14:35:50 03/04/20 25 03/04/2025 CBC W/DIF F MCV 80.7 fL 80.0-9 9.0 Not Available [facility] (Lab) [address] , [place], [address], 03/05/2025 14:35:50 03/04/20 25 03/04/2025 CBC W/DIF F MCH 26.8 pg 27.0-3 4.0 low Not Available [facility] (Lab) [address] [facility], [place], [address], 03/05/2025 14:35:50 03/04/20 25 03/04/2025 CBC W/DIF F MCHC 33.2 g/dL 32.0-3 5.5 Not Available [facility] (Lab) [address] [facility], [place], [address], 03/05/2025 14:35:50 03/04/20 25 03/04/2025 CBC W/DIF F RDW 14.6 % 11.0-1 5.0 Not Available [facility] (Lab) [address] [facility], [place], [address], 03/05/2025 14:35:50 03/04/20 25 03/04/2025 CBC W/DIF F plt 318 10'3/ uL 150-40 0 Not Available [facility] (Lab) [address] [facility], [place], [address], 03/05/2025 14:35:50 03/04/20 25 03/04/2025 CBC W/DIF F MPV 10.8 fL 8.8-12 .1 Not Available [facility] (Lab) [address] [facility], [place], [address], 03/05/2025 14:35:50 03/04/20 25 03/04/2025 CBC W/DIF F NRBC's 0.0 % 0.0 Not Available [facility] (Lab) [address] [facility], [place], [address], 03/05/2025 14:35:50 03/04/20 25 03/04/2025 CBC W/DIF F absolute NRBCs 0.0 10'3/ uL no refere nce range establ ished Not Available [facility] (Lab) [address] [facility], [place], [address], 03/05/2025 14:35:50 03/04/20 25 03/04/2025 CBC W/DIF F neutrophils 62.2 % 34.0-7 3.0 Not Available [facility] (Lab) [address] [facility], [place], [address], 03/05/2025 14:35:50 03/04/20 25 03/04/2025 CBC W/DIF F lymphocytes 29.5 % 15.0-5 0.0 Not Available [facility] (Lab) [address] [facility], [place], [address], 03/05/2025 14:35:50 03/04/20 25 03/04/2025 CBC W/DIF F monocytes 5.1 % 1.0-15 .0 Not Available [facility] (Lab) [address] [facility], [place], [address], 03/05/2025 14:35:50 03/04/20 25 03/04/2025 CBC W/DIF F eosinophils 2.1 % 0.0-8. 0 Not Available [facility] (Lab) [address] [facility], [place], [address], 03/05/2025 14:35:50 03/04/20 25 03/04/2025 CBC W/DIF F basophils 0.6 % 0.0-2. 0 Not Available [facility] (Lab) [address] [facility], [place], [address], 03/05/2025 14:35:50 03/04/2003/04/2025 CBC W/DIF F immature granulocytes 0.5 % no define d refere nce range Immat ure Granu locyt es (IG) repre sents autom ated enume ratio n of Metam yeloc ytes, Myelo cytes and Promy elocy raven when IG is < 5%. Blast s are not inclu ded in IG and repor onesimo separ ately if prese nt. Not Available [facility] (Lab) [address] [facility], [place], [address], 03/05/2025 14:35:50 03/04/20 25 03/04/2025 CBC W/DIF F absolute neutrophils 4.1 10'3/ uL 1.5-8. 0 Not Available [facility] (Lab) [address] [facility], [place], [address], 03/05/2025 14:35:50 03/04/20 25 03/04/2025 CBC W/DIF F absolute lymphocytes 2.0 10'3/ uL 1.0-4. 0 Not Available [facility] (Lab) [address] [facility], [place], [address], 03/05/2025 14:35:50 03/04/20 25 03/04/2025 CBC W/DIF F absolute monocytes 0.3 10'3/ uL 0.2-1. 0 Not Available [facility] (Lab) [address] [facility], [place], [address], 03/05/2025 14:35:50 03/04/20 25 03/04/2025 CBC W/DIF F absolute eosinophils 0.1 10'3/ uL 0.0-0. 6 Not Available [facility] (Lab) [address] [facility], [place], [address], 03/05/2025 14:35:50 03/04/20 25 03/04/2025 CBC W/DIF F absolute basophils 0.0 10'3/ uL 0.0-0. 3 Not Available [facility] (Lab) [address] [facility], [place], [address], 03/05/2025 14:35:50 03/04/20 25 03/04/2025 CBC W/DIF F absolute immature granulocytes 0.0 10'3/ uL 0.00-0 .10 Refer ence range s for nonbi nary/ inter sex or unspe cifie d gende r patie nts have not been estab lishe d. Pleas e [facility] for range s estab lishe d for cisge nder patie nts and evalu ate in the clini xander lee xt of the indiv idual patie nt: https :[email or web address] jacobo book. nm.or g/gen derx Not Available [facility] (Lab) [address], [place], [address], 03/05/2025 14:35:50 03/04/2003/04/2025 HEPAT ITIS C ANTIB CARLEEN SCREE N, REFLE X TO CONFI RMATI ON hepatitis C antibody Non-re active non-re active Antib odies to HCV Not Detec onesimo, does not exclu de the possi bilit y of expos ure to HCV. Not Available [facility] (Lab) [address], [place], [address], 03/05/2025 14:35:51 03/04/2003/04/2025 HEPAT ITIS B SURFA CE ANTIG EN hepatitis B surface antigen Non-re active non-re active This assay was perfo rmed using [employer] ratio n reage nts and test kits. Value s obtai leland with other assay metho ds or kits canno t be used inter soler eably . Not Available [facility] (Lab) [address], [place], [address], 03/05/2025 14:35:52 03/04/2003/04/2025 HIV 1/2 ANTIG EN/AN TIBOD Y, REFLE X CONFI RMATI ON HIV antigen/anti body Nonrea ctive nonrea ctive HIV-1 antig en and HIV-1 /HIV- 2 antib odies were not detec onesimo. No labor atory evide nce of HIV infec tion. Not Available [facility] (Lab) [address], [place], [address], 03/05/2025 14:35:52 03/04/2003/04/2025 TSH, REFLE X FREE T4 TSH 1.28 uIU/m L 0.30-5 .33 Not Available [facility] (Lab) [address], [place], [address], 03/05/2025 14:35:53 03/04/20 25 03/04/2025 RUBEL LA IGG ANTIB CARLEEN, QUANT rubella antibodies, IgG Reacti ve reacti ve Not Available [facility] (Lab) [address] [facility], [place], [address], 03/05/2025 14:35:53 03/04/20 25 03/04/2025 RUBEL LA IGG ANTIB CARLEEN, QUANT rubella antibodies, IgG quant 28.3 IU/mL >=10 Non-r eacti ve (Non- Immun e) <10 IU/mL React phill (Immu ne) > or = 10 IU/mL Not Available [facility] (Lab) [address] [facility], [place], [address], 03/05/2025 14:35:53 03/04/20 25 03/04/2025 TYPE/ RH/SC REEN ABO/Rh type A POS Not Available [facility] (Lab) [address] [facility], [place], [address], 03/05/2025 14:35:54 03/04/20 25 03/04/2025 TYPE/ RH/SC REEN antibody screen NEG Not Available [facility] (Lab) [address] [facility], [place], [address], 03/05/2025 14:35:54 03/04/20 25 03/04/2025 TYPE/ RH/SC REEN exp date 2024 23:59 Not Available [facility] (Lab) [address] [facility], [place], [address], 03/05/2025 14:35:54 03/04/20 25 03/04/2025 RPR SCREE N, REFLE X TITER /CONF IRMAT ION RPR qualitative Nonrea ctive nonrea ctive Not Available [facility] (Lab) [address] [facility], [place], [address], 03/05/2025 14:35:54 03/04/20 25 03/04/2025 HEMOG LOBIN [...] >8.0% Actio n sugge sted Not Available [facility] (Lab) [address] [facility], [place], [address], 03/05/2025 14:35:55 03/05/20 25 03/05/2025 CT/GC AND TRICH OMONA S VAGIN MILA (RRNA ), URINE chlamydia trachomatis, PCR Negati ve negati ve Not Available [facility] (Lab) [address] [facility], [place], [address], 03/06/2025 22:36:04 03/05/20 25 03/05/2025 CT/GC AND TRICH OMONA S VAGIN MILA (RRNA ), URINE neisseria gonorrhoeae, PCR Negati ve negati ve Not Available [facility] (Lab) [address] [facility], [place], [address], 03/06/2025 22:36:04 03/05/20 25 03/05/2025 CT/GC AND TRICH OMONA S VAGIN MILA (RRNA ), URINE trichomonas vaginalis ribosomal RNA (rrna) Negati ve negati ve Not Available [facility] (Lab) [address] [facility], [place], [address], 03/06/2025 22:36:04 03/05/2003/05/2025 CULTU RE: URINE result report SEE RESULT S BELOW Test: Cultu re: Urine Speci men Sourc e: Urine - Clean Catch Speci men Type: Urine Speci men Date: 1317 Resul t Date: 8/2/2 025 2131 Resul t Statu s: Final resul t Abnor mal: No Resul ting Lab: [facility] [address] [facility] [address] Tel: CULTU RE ----- ----- ----- --- No growt h in 1 day (dete ction level of 10,00 0 colon ies / ml.) Not Available [facility] (Lab) [address] [facility], [place], [address], 03/06/2025 22:36:04 03/05/20 25 03/05/2025 drug scree n, urine Amphetamines : negati ve Not Available [facility] [address], [place], [address], 03/05/2025 13:06:10 03/05/20 25 03/05/2025 drug scree n, urine Cannabinoids : positi ve Not Available [facility] [address], [place], [address], 03/05/2025 13:06:10 03/05/20 25 03/05/2025 drug scree n, urine Cocaine: negati ve Not Available [facility] [address], [place], [address], 03/05/2025 13:06:10 03/05/20 25 03/05/2025 drug scree n, urine Opiates: negati ve Not Available [facility] [address], [place], [address], 03/05/2025 13:06:10 03/05/20 25 03/05/2025 drug scree n, urine Phenocyclidi ne: negati ve Not Available [facility] [address], [place], [address], 03/05/2025 13:06:10 03/05/20 25 03/05/2025 drug scree n, urine Barbiturates : negati ve Not Available [facility] [address], [place], [address], 03/05/2025 13:06:10 03/05/20 25 03/05/2025 drug scree n, urine Benzodiazepi dea: negati ve Not Available [facility] [address], [place], [address], 03/05/2025 13:06:10 03/05/20 25 03/05/2025 drug scree n, urine Ethanol: negati ve Not Available [facility] [address], [place], [address], 03/05/2025 13:06:10 03/05/20 25 03/05/2025 drug scree n, urine Hallucinogen s: negati ve Not Available [facility] [address], [place], [address], 03/05/2025 13:06:10 03/05/20 25 03/05/2025 drug scree n, urine Inhalants: negati ve Not Available [facility] [address], [place], [address], 03/05/2025 13:06:10 03/05/20 25 03/05/2025 drug scree n, urine Anabolic Steroids: negati ve Not Available [facility] [address], [place], [address], 03/05/2025 13:06:10 04/28/20 25 04/28/2025 CULTU RE: URINE result report SEE RESULT S BELOW Test: Cultu re: Urine Speci men Sourc e: Urine - Clean Catch Speci men Type: Urine Speci men Date: 2024 1307 Resul t Date: 2024 2146 Resul t Statu s: Final resul t Abnor mal: No Resul ting Lab: [facility] [address] [facility] [address] Tel: [phone] CULTU RE ----- ----- ----- --- No growt h in 1 day (dete ction level of 10,00 0 colon ies / ml.) Not Available [facility] (Lab) [address] [facility], [place], [address], 04/29/2025 22:50:16 06/25/20 25 06/25/2025 HEMAT OCRIT (HCT) HCT 31.9 % (based on docume nted legal sex) 34.0-4 5.0 low Not Available [facility] (Lab) [address] [facility], [place], [address], 06/26/2025 13:07:09 06/25/20 25 06/25/2025 HEMOG LOBIN (HGB) HGB 10.4 g/dL (based on docume nted legal sex) 11.6-1 5.4 low Not Available [facility] (Lab) [address] [facility], [place], [address], 06/26/2025 13:07:09 06/25/20 25 06/25/2025 GTT - GESTA MARQUES L GILMA Guan, ACOG OB glucose, 1 hour screen 112 mg/dL 70-135 Not Available [facility] (Lab) [address] [place], [address], 06/26/2025 13:07:10 06/25/20 25 06/25/2025 HIV 1/2 ANTIG EN/AN TIBOD Y, REFLE X CONFI RMATI ON HIV antigen/anti body Nonrea ctive nonrea ctive HIV-1 antig en and HIV-1 /HIV- 2 antib odies were not detec onesimo. No labor atory evide nce of HIV infec tion. Not Available [facility] (Lab) [address] [facility], [place], [address], 06/26/2025 13:07:10 06/25/20 25 06/25/2025 RPR SCREE N, REFLE X TITER /CONF IRMAT ION RPR qualitative Nonrea ctive nonrea ctive Not Available [facility] (Lab) [address], [place], [address], 06/26/2025 13:07:11 03/04/20 25 03/04/2025 US, obste tric, nucha l trans lucen cy No observ ation record ed. [email or web address] [facility] [address], [place], [address], 03/04/2025 12:51:34 03/04/20 25 03/04/2025 US, obste tric, 1st trime ster No observ ation record ed. [email or web address] [facility] [address], [place], [address], 03/04/2025 12:49:29 03/04/20 25 03/04/2025 US, obste tric, follo w-up No observ ation record ed. [email or web address] [address], [place], [address], 03/08/2025 16:22:05 04/28/20 25 04/28/2025 US, obste tric, 2nd or 3rd trime ster No observ ation record ed. [facility] [address], [place], [address], 04/28/2025 18:35:16 04/28/20 25 04/28/2025 US, obste tric, 2nd or 3rd trime ster No observ ation record ed. [email or web address] [address], [place], [address], 04/28/2025 14:33:42 05/28/20 25 05/28/2025 US, obste tric, follo w-up No observ ation record ed. [facility] [address], [place], [address], 05/28/2025 14:43:14 05/28/20 25 05/28/2025 US, obste tric, follo w-up No observ ation record ed. [email or web address] [address], [place], [address], 05/28/2025 12:23:54 07/06/20 25 07/06/2025 US, obste tric, follo w-up No observ ation record ed. [facility] [address], [place], [address], 07/06/2025 14:22:13 07/06/20 25 07/06/2025 US, obste tric, follo w-up No observ ation record ed. BISI [address], [place], [address], 07/10/2025 15:59:39 Result Notes None recorded. Problems Name Problem SNOMED Code Status Onset Date Resolution Date Notes Provider Name and Address Organization Details Recorded Time History of chlamydi al infectio n 070186085 Completed chl neg John Marquez null, [facility] 4 15:43:29 Low-lyin g placenta 659858060 Completed resolved SHAYY Perkins [address], [place], [address], [facility] 4 12:41:38 Pregnanc y 82597999 Completed 202310/27/2024 Bree Nevarez null, [facility] 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 4 17:47:43 Mixed anxiety and depressi ve disorder 904905977 Active 2023 Corine Novak null, [facility] 4 12:29:58 Pregnanc y 20256364 Active 2024 Bree Nevarez null, [facility] 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 5 13:19:25 Problem Notes None recorded. Procedures Surgical History Date Name Laterality Status Provider Name and Address Organization Details Recorded Time 02/19/20 24 Date of Last Pap Smear completed Corine Novak [facility] 02/19/2024 15:34:35 12/26/19 23 Nexplanon Removal completed Jacey Chavez [facility] [address], [place], [address], [facility] 12/25/2022 15:19:15 09/07/19 23 Control Implant Insertion completed Jacey Chavez [facility] [address], [place], [address], [facility] 09/07/2022 14:46:07 08/05/19 11 Tonsillectomy completed Corine Novak [facility] 10/17/2023 12:48:17 Imaging Results None recorded. Procedure Notes None recorded. Medical Equipment None Reported. Allergies Allergen ID Allergen Name Allergen Category Reaction Reaction Severity Criticality Documentation Date Start Date Code Code System Note Provider Name and Address Organization Details Recorded Time 30341 carbamaze pine medicatio n Not available Not available Not available 04/01/20242001 RxNorm Corine vargas, [facility] 4 18:25:07 71911 bisacodyl medicatio n rash Not available high [...] Body mass index (BMI) Body height Systolic And Diastolic Provider Name and Address Organization Details Last Updated DateTime 06/25/2025 20526.861 51 g 21.1 kg/m2 162.56 cm 121/73 mm[Hg] Sharon Eldridge [facility] 06/25/2025 11:34:00 Social History Question Answer Notes LastModified by Organizat ion Details LastModified Time Tobacco Smoking Status Never Smoker Sharon vargas [facility] 05/01/2023 15:09:00 If You Are , What Was Your Level Of Alcohol Consumption Prior To ? Occasional [email or web address] Information not available 02/19/2024 Are You Blind [...] COVID-19 While That Person Was Ill? No [email or web address] Information not available 07/14/2021 Have You Been To An Area Known To Be High Risk For COVID-19? No [email or web address] Information not available 07/14/2021 Are You Deaf Or Do You Have Serious Difficulty Hearing? No Information not available 03/15/2021 What Type Of Diet Are You Following? REGULAR Information n ot available 03/15/2021 Do You Use Your Seat Belt Or Car Seat Routinely? Yes Information not available 03/15/2021 Are You Sexually Active? Yes [email or web address] Information not available 05/01/2023 Do You Have Smoke And Carbon Monoxide Detectors In Your Home? Yes Information not available 03/15/2021 Do You Use Sunscreen Routinely? Yes Information not available 03/15/2021 Has Tobacco Cessation Counseling Been Provided? No [email or web address] Information not available 05/01/2023 Do You Have Difficulty Walking Or Climbing Stairs? No Information not available 05/01/2023 Sex: Unknown Functional Status Question Answer Note LastModified by Organizat ion Details LastModified Time Do you use any illicit or recreational drugs? Yes marijuana [email or web address] Information not available 02/19/2024 Do you or have you ever used any other forms of tobacco or nicotine? Yes Information not available 02/19/2024 What is your level of alcohol consumption? None Information not available 03/15/2021 Are you able to walk independently without assistance or assistive devices? [email or web address] Information not available 03/15/2021 Are you able to care for yourself independently? Yes [email or web address] Information not available 05/01/2023 Do you have difficulty dressing, bathing, grooming, or toileting? No [email or web address] Information not available 05/01/2023 Do you or have you ever used e-cigarettes or vape? Current user of electronic cigarettes [email or web address] Information not available 02/19/2024 What is your exercise level? None Information not available 03/15/2021 Mental Status Question Answer Note LastModified by Organization D etails LastModified Time Do you feel stressed (tense, restless, nervous, or anxious, or unable to sleep at night)? [id number] Information not available 03/15/2021 Family History Relationship [...] ICD10 Code Diagnosis IMO Codes Diagnosis Note [id number] Jones Koenig MD [facility] [address],[place] [address] 05/28/2025 11:01:00 05/28/2025 11:35:34 anatomy study 114192284 Z36.2 O35.8XX0 Z3A.25 6117610641 [id number] Sakina Cantrell [facility] [address],[place] [address] 05/28/2025 11:01:17 05/28/2025 12:11:51 Gestation period, 25 weeks 82511503 Z3A.25 4017148 327494 Sakina Cantrell [facility] [address],[place] [address] 06/25/2025 11:15:34 06/25/2025 11:57:57 Gestation period, 29 weeks 76655792 Z3A.29 [id number] Health Concerns Section Related Observation LastModified by Organization Detai ls LastModified Time None Recorded Concern Status LastModified by Organization Details LastModified Time None Recorded Payers Encounter Date Sequence Insurance Name Policy Number Policy Shine Covered Member ID Shine Member ID Guarantor Name 06/25/2025 1 [facility] [id number] 1 Cornel Gary [id number] S Mae Frances 06/25/2025 2 [place] [facility] Mae Frances [id number] Mae Frances OBGyn Episode Ob Episode Information Episode Created Date Number of Fetuses Patient Bloodtype Patient rh Status Prepregnancy Weight lbs Domestic Partner Domestic Partner Phone Father Name Loan Review Manager Status 02/25/20 25 1 A Positive 111 OPEN Fetus Data First Name Last Name Admitted to NICU Weight (g) Sex Living Outcome Pediatric Complications Fetus ID Race Codes Race Delivery Type [id number] Problems Problem Notes +THC in urine Problem Name Start Date End Date Resolution 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 527852 03 + 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 2023 [...] Latest Days Gestation 05/28/20 25 24 4 Pre-kwasi Flowsheet Flowsheet Date 03/04/2025 Frias Score Blood [...] Weight in lbs Pre/Post Dialysis Refused Weight 112.961280481548 BP Diastolic BP Location Tested BP Systolic BP Type 62 R arm 112 sitting Fetus Heart Rate Present Fetus Movement A No Comments Flowsheet Date 03/10/2025 Frias Score Blood Edema Fundus Height Fundus Units Glucose Ketones Leukocytes Nitrite Labor Signs Protein Cervic Dilation Cervic Effacement Cervic Station Type Weight in lbs Pre/Post Dialysis Refused 113.051756385921 BP Diastolic BP Location Tested BP Systolic [...] Weight in lbs Pre/Post Dialysis Refused Weight 115.160082119158 BP Diastolic BP Location Tested BP Systolic [...] Type Weight in lbs Pre/Post Dialysis Refused 119.479098008795 BP Diastolic BP Location Tested BP Systolic [...] Type Weight in lbs Pre/Post Dialysis Refused 123.815339725180 BP Diastolic BP Location Tested BP Systolic [...] Weight in lbs Pre/Post Dialysis Refused Weight 127.986902549674 BP Diastolic BP Location Tested BP Systolic [...] Type Weight in lbs Pre/Post Dialysis Refused [id number] BP Diastolic BP Location Tested BP Systolic [...]
--- OUTSIDE RECORDS SUMMARY | 2025-07-30 15:31 | XMS_ITS | Continuity of Care Document ---
Author Organization [facility] Address [address] [place] [address] Assessment No assessment recorded. Plan of Treatment [...] Not Available Drew muñiz [address], [place], [address], 03/12/2025 00:32:43 03/12/20 25 03/12/2025 [UNIT Y] ANEUP LOIDY NIPT 22Q11.2 microdeletio n LOW RISK <1 in 10,000 normal Not Available Sohan young [address], [place], [address], 03/12/2025 00:32:43 03/12/20 25 03/12/2025 [UNIT Y] ANEUP LOIDY NIPT sex chromosome aneuploidy NOT DETECT ED normal Not Available [facility] [address], [place], [address], 03/12/2025 00:32:43 03/12/20 25 03/12/2025 [UNIT Y] ANEUP LOIDY NIPT monosomy X LOW RISK <1 in 10,000 normal Not Available [facility] [address], [place], [address], 03/12/2025 00:32:43 03/12/20 25 03/12/2025 [UNIT Y] ANEUP LOIDY NIPT trisomy 13 LOW RISK <1 in 10,000 normal Not Available [facility] [address], [place], [address], 03/12/2025 00:32:43 03/12/20 25 03/12/2025 [UNIT Y] ANEUP LOIDY NIPT trisomy 18 LOW RISK <1 in 10,000 normal Not Available [facility] [address], [place], [address], 03/12/2025 00:32:43 03/12/20 25 03/12/2025 [UNIT Y] ANEUP LOIDY NIPT trisomy 21 LOW RISK <1 in 10,000 normal Not Available [facility] [address], [place], [address], 03/12/2025 00:32:43 03/12/20 25 03/12/2025 [UNIT Y] ANEUP LOIDY NIPT sex FEMALE normal Not Available [facility] [address], [place], [address], 03/12/2025 00:32:43 03/12/20 25 03/12/2025 [UNIT Y] ANEUP LOIDY NIPT gestation SINGLE TON normal Not Available [facility] [address], [place], [address], 03/12/2025 00:32:43 03/12/20 25 03/12/2025 [UNIT Y] ANEUP CHELSEA NIPT for detailed report, see pdf See PDF normal Not Available [facility] [address], [place], [address], 03/12/2025 00:32:43 03/04/2003/04/2025 CBC W/DIF F WBC 6.6 10'3/ uL 3.5-10 .5 Not Available [facility] (Lab) [address], [place], [address], 03/05/2025 14:35:50 03/04/20 25 03/04/2025 CBC W/DIF F RBC 4.56 10'6/ uL (based on docume nted legal sex) 3.80-5 .20 Not Available [facility] (Lab) [address], [place], [address], 03/05/2025 14:35:50 03/04/20 25 03/04/2025 CBC W/DIF F HGB 12.2 g/dL (based on docume nted legal sex) 11.6-1 5.4 Not Available [facility] (Lab) [address], [place], [address], 03/05/2025 14:35:50 03/04/20 25 03/04/2025 CBC W/DIF F HCT 36.8 % (based on docume nted legal sex) 34.0-4 5.0 Not Available [facility] (Lab) [address], [place], [address], 03/05/2025 14:35:50 03/04/20 25 03/04/2025 CBC W/DIF F MCV 80.7 fL 80.0-9 9.0 Not Available [facility] (Lab) [address] , [place], [address], 03/05/2025 14:35:50 03/04/20 25 03/04/2025 CBC W/DIF F MCH 26.8 pg 27.0-3 4.0 low Not Available [facility] (Lab) [address] [facility], [place], [address], 03/05/2025 14:35:50 03/04/20 25 03/04/2025 CBC W/DIF F MCHC 33.2 g/dL 32.0-3 5.5 Not Available [facility] (Lab) [address] [facility], [place], [address], 03/05/2025 14:35:50 03/04/20 25 03/04/2025 CBC W/DIF F RDW 14.6 % 11.0-1 5.0 Not Available [facility] (Lab) [address] [facility], [place], [address], 03/05/2025 14:35:50 03/04/20 25 03/04/2025 CBC W/DIF F plt 318 10'3/ uL 150-40 0 Not Available [facility] (Lab) [address] [facility], [place], [address], 03/05/2025 14:35:50 03/04/20 25 03/04/2025 CBC W/DIF F MPV 10.8 fL 8.8-12 .1 Not Available [facility] (Lab) [address] [facility], [place], [address], 03/05/2025 14:35:50 03/04/20 25 03/04/2025 CBC W/DIF F NRBC's 0.0 % 0.0 Not Available [facility] (Lab) [address] [facility], [place], [address], 03/05/2025 14:35:50 03/04/20 25 03/04/2025 CBC W/DIF F absolute NRBCs 0.0 10'3/ uL no refere nce range establ ished Not Available [facility] (Lab) [address] [facility], [place], [address], 03/05/2025 14:35:50 03/04/20 25 03/04/2025 CBC W/DIF F neutrophils 62.2 % 34.0-7 3.0 Not Available [facility] (Lab) [address] [facility], [place], [address], 03/05/2025 14:35:50 03/04/20 25 03/04/2025 CBC W/DIF F lymphocytes 29.5 % 15.0-5 0.0 Not Available [facility] (Lab) [address] [facility], [place], [address], 03/05/2025 14:35:50 03/04/20 25 03/04/2025 CBC W/DIF F monocytes 5.1 % 1.0-15 .0 Not Available [facility] (Lab) [address] [facility], [place], [address], 03/05/2025 14:35:50 03/04/20 25 03/04/2025 CBC W/DIF F eosinophils 2.1 % 0.0-8. 0 Not Available [facility] (Lab) [address] [facility], [place], [address], 03/05/2025 14:35:50 03/04/20 25 03/04/2025 CBC W/DIF F basophils 0.6 % 0.0-2. 0 Not Available [facility] (Lab) [address] [facility], [place], [address], 03/05/2025 14:35:50 03/04/2003/04/2025 CBC W/DIF F immature granulocytes 0.5 % no define d refere nce range Immat ure Granu locyt es (IG) repre sents autom ated enume ratio n of Metam yeloc ytes, Myelo cytes and Promy elocy raven when IG is < 5%. Blast s are not inclu ded in IG and repor onesimo separ ately if prese nt. Not Available [facility] (Lab) [address] [facility], [place], [address], 03/05/2025 14:35:50 03/04/20 25 03/04/2025 CBC W/DIF F absolute neutrophils 4.1 10'3/ uL 1.5-8. 0 Not Available [facility] (Lab) [address] [facility], [place], [address], 03/05/2025 14:35:50 03/04/20 25 03/04/2025 CBC W/DIF F absolute lymphocytes 2.0 10'3/ uL 1.0-4. 0 Not Available [facility] (Lab) [address] [facility], [place], [address], 03/05/2025 14:35:50 03/04/20 25 03/04/2025 CBC W/DIF F absolute monocytes 0.3 10'3/ uL 0.2-1. 0 Not Available [facility] (Lab) [address] [facility], [place], [address], 03/05/2025 14:35:50 03/04/20 25 03/04/2025 CBC W/DIF F absolute eosinophils 0.1 10'3/ uL 0.0-0. 6 Not Available [facility] (Lab) [address] [facility], [place], [address], 03/05/2025 14:35:50 03/04/20 25 03/04/2025 CBC W/DIF F absolute basophils 0.0 10'3/ uL 0.0-0. 3 Not Available [facility] (Lab) [address] [facility], [place], [address], 03/05/2025 14:35:50 03/04/20 25 03/04/2025 CBC W/DIF F absolute immature granulocytes 0.0 10'3/ uL 0.00-0 .10 Refer ence range s for nonbi nary/ inter sex or unspe cifie d gende r patie nts have not been estab lishe d. Pleas e refer to the [facility] for range s estab lishe d for cisge nder patie nts and evalu ate in the clini xander lee xt of the indiv idual patie nt: https ://elida jacobo book. nm.or g/gen derx Not Available [facility] (Lab) [address], [place], [address], 03/05/2025 14:35:50 03/04/2003/04/2025 HEPAT ITIS C ANTIB CARLEEN SCREE N, REFLE X TO CONFI RMATI ON hepatitis C antibody Non-re active non-re active Antib odies to HCV Not Detec onesimo, does not exclu de the possi bilit y of expos ure to HCV. Not Available [facility] (Lab) [address], [place], [address], 03/05/2025 14:35:51 03/04/2003/04/2025 HEPAT ITIS B SURFA CE ANTIG EN hepatitis B surface antigen Non-re active non-re active This assay was perfo rmed using [employer] ratio n reage nts and test kits. Value s obtai leland with other assay metho ds or kits canno t be used inter soler eably . Not Available [facility] (Lab) [address], [place], [address], 03/05/2025 14:35:52 03/04/2003/04/2025 HIV 1/2 ANTIG EN/AN TIBOD Y, REFLE X CONFI RMATI ON HIV antigen/anti body Nonrea ctive nonrea ctive HIV-1 antig en and HIV-1 /HIV- 2 antib odies were not detec onesimo. No labor atory evide nce of HIV infec tion. Not Available [facility] (Lab) [address], [place], [address], 03/05/2025 14:35:52 03/04/2003/04/2025 TSH, REFLE X FREE T4 TSH 1.28 uIU/m L 0.30-5 .33 Not Available [facility] (Lab) [address], [place], [address], 03/05/2025 14:35:53 03/04/20 25 03/04/2025 RUBEL LA IGG ANTIB CARLEEN, QUANT rubella antibodies, IgG Reacti ve reacti ve Not Available [facility] (Lab) [address] [facility], [place], [address], 03/05/2025 14:35:53 03/04/20 25 03/04/2025 RUBEL LA IGG ANTIB CARLEEN, QUANT rubella antibodies, IgG quant 28.3 IU/mL >=10 Non-r eacti ve (Non- Immun e) <10 IU/mL React phill (Immu ne) > or = 10 IU/mL Not Available [facility] (Lab) [address] [facility], [place], [address], 03/05/2025 14:35:53 03/04/20 25 03/04/2025 TYPE/ RH/SC REEN ABO/Rh type A POS Not Available [facility] (Lab) [address] [facility], [place], [address], 03/05/2025 14:35:54 03/04/20 25 03/04/2025 TYPE/ RH/SC REEN antibody screen NEG Not Available [facility] (Lab) [address] [facility], [place], [address], 03/05/2025 14:35:54 03/04/20 25 03/04/2025 TYPE/ RH/SC REEN exp date 2024 23:59 Not Available [facility] (Lab) [address] [facility], [place], [address], 03/05/2025 14:35:54 03/04/20 25 03/04/2025 RPR SCREE N, REFLE X TITER /CONF IRMAT ION RPR qualitative Nonrea ctive nonrea ctive Not Available [facility] (Lab) [address] [facility], [place], [address], 03/05/2025 14:35:54 03/04/20 25 03/04/2025 HEMOG LOBIN [...] >8.0% Actio n sugge sted Not Available [facility] (Lab) [address] [facility], [place], [address], 03/05/2025 14:35:55 03/05/20 25 03/05/2025 CT/GC AND TRICH OMONA S VAGIN MILA (RRNA ), URINE chlamydia trachomatis, PCR Negati ve negati ve Not Available [facility] (Lab) [address] [facility], [place], [address], 03/06/2025 22:36:04 03/05/20 25 03/05/2025 CT/GC AND TRICH OMONA S VAGIN MILA (RRNA ), URINE neisseria gonorrhoeae, PCR Negati ve negati ve Not Available [facility] (Lab) [address] [facility], [place], [address], 03/06/2025 22:36:04 03/05/20 25 03/05/2025 CT/GC AND TRICH OMONA S VAGIN MILA (RRNA ), URINE trichomonas vaginalis ribosomal RNA (rrna) Negati ve negati ve Not Available [facility] (Lab) [address] [facility], [place], [address], 03/06/2025 22:36:04 03/05/2003/05/2025 CULTU RE: URINE result report SEE RESULT S BELOW Test: Cultu re: Urine Speci men Sourc e: Urine - Clean Catch Speci men Type: Urine Speci men Date: 1317 Resul t Date: 8/2/2 025 2131 Resul t Statu s: Final resul t Abnor mal: No Resul ting Lab: [facility] [address] [facility] [address] Tel: CULTU RE ----- ----- ----- --- No growt h in 1 day (dete ction level of 10,00 0 colon ies / ml.) Not Available [facility] ([facility]) [address] [facility], [place], [address], 03/06/2025 22:36:04 03/05/20 25 03/05/2025 drug scree n, urine Amphetamines : negati ve Not Available [facility] [address], [place], [address], 03/05/2025 13:06:10 03/05/20 25 03/05/2025 drug scree n, urine Cannabinoids : positi ve Not Available [facility] [address], [place], [address], 03/05/2025 13:06:10 03/05/20 25 03/05/2025 drug scree n, urine Cocaine: negati ve Not Available [facility] [address], [place], [address], 03/05/2025 13:06:10 03/05/20 25 03/05/2025 drug scree n, urine Opiates: negati ve Not Available [facility] [address], [place], [address], 03/05/2025 13:06:10 03/05/20 25 03/05/2025 drug scree n, urine Phenocyclidi ne: negati ve Not Available [facility] [address], [place], [address], 03/05/2025 13:06:10 03/05/20 25 03/05/2025 drug scree n, urine Barbiturates : negati ve Not Available [facility] [address], [place], [address], 03/05/2025 13:06:10 03/05/20 25 03/05/2025 drug scree n, urine Benzodiazepi dea: negati ve Not Available [facility] [address], [place], [address], 03/05/2025 13:06:10 03/05/20 25 03/05/2025 drug scree n, urine Ethanol: negati ve Not Available [facility] [address], [place], [address], 03/05/2025 13:06:10 03/05/20 25 03/05/2025 drug scree n, urine Hallucinogen s: negati ve Not Available [facility] [address], [place], [address], 03/05/2025 13:06:10 03/05/20 25 03/05/2025 drug scree n, urine Inhalants: negati ve Not Available [facility] [address], [place], [address], 03/05/2025 13:06:10 03/05/20 25 03/05/2025 drug scree n, urine Anabolic Steroids: negati ve Not Available [facility] [address], [place], [address], 03/05/2025 13:06:10 04/28/20 25 04/28/2025 CULTU RE: URINE result report SEE RESULT S BELOW Test: Cultu re: Urine Speci men Sourc e: Urine - Clean Catch Speci men Type: Urine Speci men Date: 2024 1307 Resul t Date: 2024 2146 Resul t Statu s: Final resul t Abnor mal: No Resul ting Lab: [facility] [address] [facility] [address] Tel: [phone] CULTU RE ----- ----- ----- --- No growt h in 1 day (dete ction level of 10,00 0 colon ies / ml.) Not Available [facility] ([facility]) [address] [facility], [place], [address], 04/29/2025 22:50:16 06/25/20 25 06/25/2025 HEMAT OCRIT (HCT) HCT 31.9 % (based on docume nted legal sex) 34.0-4 5.0 low Not Available [facility] ([facility]) [address] [facility], [place], [address], 06/26/2025 13:07:09 06/25/20 25 06/25/2025 HEMOG LOBIN (HGB) HGB 10.4 g/dL (based on docume nted legal sex) 11.6-1 5.4 low Not Available [facility] ([facility]) [address] [facility], [place], [address], 06/26/2025 13:07:09 06/25/20 25 06/25/2025 GTT - GESTA MARQUES L GILMA Guan, ACOG OB glucose, 1 hour screen 112 mg/dL 70-135 Not Available [facility] (Lab) [address] [place], [address], 06/26/2025 13:07:10 06/25/20 25 06/25/2025 HIV 1/2 ANTIG EN/AN TIBOD Y, REFLE X CONFI RMATI ON HIV antigen/anti body Nonrea ctive nonrea ctive HIV-1 antig en and HIV-1 /HIV- 2 antib odies were not detec onesimo. No labor atory evide nce of HIV infec tion. Not Available [facility] ([facility]) [address] [facility], [place], [address], 06/26/2025 13:07:10 06/25/20 25 06/25/2025 RPR SCREE N, REFLE X TITER /CONF IRMAT ION RPR qualitative Nonrea ctive nonrea ctive Not Available [facility] (Lab) [address], [place], [address], 06/26/2025 13:07:11 03/04/20 25 03/04/2025 US, obste tric, nucha l trans lucen cy No observ ation record ed. [email or web address] [facility] [address], [place], [address], 03/04/2025 12:51:34 03/04/20 25 03/04/2025 US, obste tric, 1st trime ster No observ ation record ed. [email or web address] [facility] [address], [place], [address], 03/04/2025 12:49:29 03/04/20 25 03/04/2025 US, obste tric, follo w-up No observ ation record ed. [email or web address] [address], [place], [address], 03/08/2025 16:22:05 04/28/20 25 04/28/2025 US, obste tric, 2nd or 3rd trime ster No observ ation record ed. [facility] [address], [place], [address], 04/28/2025 18:35:16 04/28/20 25 04/28/2025 US, obste tric, 2nd or 3rd trime ster No observ ation record ed. [email or web address] [address], [place], [address], 04/28/2025 14:33:42 05/28/20 25 05/28/2025 US, obste tric, follo w-up No observ ation record ed. [facility] [address], [place], [address], 05/28/2025 14:43:14 05/28/20 25 05/28/2025 US, obste tric, follo w-up No observ ation record ed. clarisa [address], [place], [address], 05/28/2025 12:23:54 07/06/20 25 07/06/2025 US, obste tric, follo w-up No observ ation record ed. [facility] [address], [place], [address], 07/06/2025 14:22:13 07/06/20 25 07/06/2025 US, obste tric, follo w-up No observ ation record ed. BISI [address], [place], [address], 07/10/2025 15:59:39 Result Notes None recorded. Problems Name Problem SNOMED Code Status Onset Date Resolution Date Notes Provider Name and Address Organization Details Recorded Time History of chlamydi al infectio n 433543892 Completed chl neg John Marquez null, [facility] 4 15:43:29 Low-lyin g placenta 577125232 Completed resolved SHAYY Perkins [address], [place], [address], [facility] 4 12:41:38 Pregnanc y 33682035 Completed 202310/27/2024 Bree Nevarez null, [facility] 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 4 17:47:43 Mixed anxiety and depressi ve disorder 495599992 Active 2023 Corine Novak null, [facility] 4 12:29:58 Pregnanc y 04682572 Active 2024 Bree Nevarez null, [facility] 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 5 13:19:25 Problem Notes None recorded. Procedures Surgical History Date Name Laterality Status Provider Name and Address Organization Details Recorded Time 02/19/20 24 Date of Last Pap Smear completed Corine Novak [facility] 02/19/2024 15:34:35 12/26/19 23 Nexplanon Removal completed Jacey Chavez [facility] [address], [place], [address], [facility] 12/25/2022 15:19:15 09/07/19 23 Control Implant Insertion completed Jacey Chavez [facility] [address], [place], [address], [facility] 09/07/2022 14:46:07 08/05/19 11 Tonsillectomy completed Corine Novak [facility] 10/17/2023 12:48:17 Imaging Results None recorded. Procedure Notes None recorded. Medical Equipment None Reported. Allergies Allergen ID Allergen Name Allergen Category Reaction Reaction Severity Criticality Documentation Date Start Date Code Code System Note Provider Name and Address Organization Details Recorded Time 66616 carbamaze pine medicatio n Not available Not available Not available 04/01/20242001 RxNorm Corine vargas, [facility] 4 18:25:07 77961 bisacodyl medicatio n rash Not available high [...] Updated DateTime 07/06/2025 162.56 cm 21.8 kg/m2 98784.23 g 104/67 mm[Hg] Clotilde Santillan [facility] 07/06/2025 12:30:33 Social History Question Answer Notes LastModified by Organizat ion Details LastModified Time Tobacco Smoking Status Never Smoker Sharon vargas, [facility] 05/01/2023 15:09:00 If You Are , What Was Your Level Of Alcohol Consumption Prior To ? Occasional [email or web address] Information not available 02/19/2024 Are You Blind Or Do You Have Difficulty Seeing? No Information n ot available 03/15/2021 What Is Your Level Of Caffeine Consumption? None Information not available 03/15/2021 In The 14 Days Before Symptom Onset, Have You Had Close Contact With A Laboratory-confirm ed COVID-19 While That Case Was Ill? No [email or web address] Information n ot available 07/14/2021 In The 14 Days Before Symptom Onset, Have You Had Close Contact With A Person Who Is Under Investigation For COVID-19 While That Person Was Ill? No [email or web address] Information not available 07/14/2021 Have You Been To An Area Known To Be High Risk For COVID-19? No [email or web address] Information not available 07/14/2021 Are You Deaf [...] Has Tobacco Cessation Counseling Been Provided? No [email or web address] Information not available 05/01/2023 Do You Have Difficulty Walking Or Climbing Stairs? No [email or web address] Information not available 05/01/2023 Sex: Unknown Functional Status Question Answer Note LastModified by Organizat ion Details LastModified Time Do you use any illicit or recreational drugs? Yes marijuana [email or web address] Information not available 02/19/2024 Do you or have you ever used any other forms of tobacco or nicotine? Yes [email or web address] Information not available 02/19/2024 What is your level of alcohol consumption? None Information not available 03/15/2021 Are you able to walk independently without assistance or assistive devices? [email or web address] Information not available 03/15/2021 Are you able to care for yourself independently? Yes [email or web address] Information not available 05/01/2023 Do you have difficulty dressing, bathing, grooming, or toileting? No [email or web address] Information not available 05/01/2023 Do you or have you ever used e-cigarettes or vape? Current user of electronic cigarettes [email or web address] Information not available 02/19/2024 What is your exercise level? None Information not available 03/15/2021 Mental Status Question Answer Note LastModified by Organization D etails LastModified Time Do you feel stressed (tense, restless, nervous, or anxious, or unable to sleep at night)? [id number] Information not available 03/15/2021 Family History Relationship [...] ICD10 Code Diagnosis IMO Codes Diagnosis Note [id number] Sakina Cantrell CNM [facility] [address],[place] [address] 06/25/2025 11:15:34 06/25/2025 11:57:57 Gestation period, 29 weeks 19123568 Z3A.29 [id number] GUANAKITO BARRETT MD [facility] [address],[place] [address] 07/06/2025 11:27:10 07/06/2025 12:36:34 Observational assessment 890970243 Z03.74 Z3A.30 [id number] GUANAKITO BARRETT MD [facility] [address],[place] [address] 07/06/2025 11:27:24 07/06/2025 12:57:26 care status 610902930 Z34.83 [id number] Health Concerns Section Related Observation LastModified by Organization Detai ls LastModified Time None Recorded Concern Status LastModified by Organization Details LastModified Time None Recorded Payers Encounter Date Sequence Insurance Name Policy Number Policy Shine Covered Member ID Shine Member ID Guarantor Name 07/06/2025 1 [facility] [id number] 1 Cornel Gary [id number] S Mae Frances 07/06/2025 2 [place] Mae Frances [id number] Mae Frances Notes Date Note Type Note Provider Name and Address Organization Details Recorded Time 07/06/2025 text/html Generic HPI TemplateReported by Patient GUANAKITO BARRETT MD [address], [place], [address], [facility] 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 [...] Weight in lbs Pre/Post Dialysis Refused Weight 112.644350619464 BP Diastolic BP Location Tested BP Systolic BP Type 62 R arm 112 sitting Fetus Heart Rate Present Fetus Movement A No Comments Flowsheet Date 03/10/2025 Frias Score Blood Edema Fundus Height Fundus Units Glucose Ketones Leukocytes Nitrite Labor Signs Protein Cervic Dilation Cervic Effacement Cervic Station Type Weight in lbs Pre/Post Dialysis Refused 113.328641716091 BP Diastolic BP Location Tested BP Systolic BP Type 63 L arm 106 sitting Fetus Heart Rate Present Fetus Movement A Yes Comments reviewed US, sp was at [facility], appt got rescheduledpt has hx of [...] Weight in lbs Pre/Post Dialysis Refused Weight 115.707623551004 BP Diastolic BP Location Tested BP Systolic [...] Type Weight in lbs Pre/Post Dialysis Refused 119.374451558480 BP Diastolic BP Location Tested BP Systolic [...] Type Weight in lbs Pre/Post Dialysis Refused 123.210031991547 BP Diastolic BP Location Tested BP Systolic [...] Weight in lbs Pre/Post Dialysis Refused Weight 127.842668790962 BP Diastolic BP Location Tested BP Systolic [...] Type Weight in lbs Pre/Post Dialysis Refused 128.664363544395 BP Diastolic BP Location Tested BP Systolic [...]
--- OUTSIDE RECORDS SUMMARY | 2025-07-30 15:31 | XMS_ITS | Patient Health Record ---
[facility] Address [address] [place] [address] Phone [phone] Care Team Providers Care Animal Herder Name Role Phone Cesilia Wilkins Primary Care Provider [phone] Cesilia Ibanez Unavailable [phone] Allergies Allergen (clinical drug ingredient) Drug/Non Drug Allergy documented on EMR Reaction Allergy Type Onset Date Status Information temporarily unavailable Tegretol Unknown Drug Allergy Active Reason For Referral No Information Medications Medication SIG (Take, Route, Frequency, Duration) Notes Start Date End Date Diagnosis (ICD Code) Status Wellbutrin 75 MG Tablet 1 tablet Orally Twice a day; Duration: 30 day(s) 10/10/2021 ADHD (attention deficit hyperactivity disorder) (ICD_10 - F90.9) Active Social History Sex Observation Social History Observation Description Sex Observation Female Sexual Orientation Social History Observation Description Sexual Orientation Straight or heterose xual Gender Identity Social History Observation Description Gender Identity Female Social History Primary Social History Social Info Question Answer Notes Living Arrangement Living Arrangement: Dependent Livin g Problems Problem Type SNOMED Code ICD Code Dates Problem Status W/U Status Risk Notes Problem Information temporarily unavailable ADHD (attention deficit hyperactivity disorder) (F90.9) Added On:01/19 Active confirmed Problem Information temporarily unavailable Bipolar 1 disorder, mixed (F31.60) Added On:07/04 Active confirmed Rule out Problem Information temporarily unavailable DMDD (disruptive mood dysregulation disorder) (F34.81) Added On:10/16 Active confirmed Plan Of Treatment No Information Insurance Providers Payer Name Payer Address Payer Phone Subscriber Number Group Number Insured Name Patient Relationship to Insured Coverage Start Date Coverage End Date [facility] Attn Claims Department [address] [place] [address] [phone] [id number] Mae Frances Self - patient is the insured 9 [facility] Attn Claims Department [address] [place] [address] [phone] [id number] Mae Frances Self - patient is the insured 1 Medical (General) History Surgical History Surgery Date(Month/Year) Hospitalization History Reason Date(Month/Year)
--- OUTSIDE RECORDS SUMMARY | 2025-07-30 15:31 | XMS_ITS | Continuity of Care Document ---
Author Organization [facility] Address [address] [place] [address] Assessment Encounter Date Assessment Date Assessment LastModified by Organization Details LastModified Time 07/23/2025 07/23/2025 Patient is _33__weeks . Discussed plan. Not available 07/23/2025 14:34:53 Plan of Treatment Reminders Order Date Submit [...] [address] n[address], [place], [address], 03/12/2025 00:32:43 03/12/20 25 03/12/2025 [UNIT Y] ANEUP LOIDY NIPT 22Q11.2 microdeletio n LOW RISK <1 in 10,000 normal Not Available [address] [address], [place], [address], 03/12/2025 00:32:43 03/12/20 25 03/12/2025 [UNIT Y] ANEUP LOIDY NIPT sex chromosome aneuploidy NOT DETECT ED normal Not Available [facility] [address], [place], [address], 03/12/2025 00:32:43 03/12/20 25 03/12/2025 [UNIT Y] ANEUP LOIDY NIPT monosomy X LOW RISK <1 in 10,000 normal Not Available [address] [address], [place], [address], 03/12/2025 00:32:43 03/12/20 25 03/12/2025 [UNIT Y] ANEUP LOIDY NIPT trisomy 13 LOW RISK <1 in 10,000 normal Not Available [address] [address], [place], [address], 03/12/2025 00:32:43 03/12/20 25 03/12/2025 [UNIT Y] ANEUP LOIDY NIPT trisomy 18 LOW RISK <1 in 10,000 normal Not Available [facility] [address], [place], [address], 03/12/2025 00:32:43 03/12/20 25 03/12/2025 [UNIT Y] ANEUP LOIDY NIPT trisomy 21 LOW RISK <1 in 10,000 normal Not Available [address] [address], [place], [address], 03/12/2025 00:32:43 03/12/20 25 03/12/2025 [UNIT Y] ANEUP LOIDY NIPT sex FEMALE normal Not Available [facility] [address] [address], [place], [address], 03/12/2025 00:32:43 03/12/20 25 03/12/2025 [UNIT Y] ANEUP LOIDY NIPT gestation SINGLE TON normal Not Available [facility] [address], [place], [address], 03/12/2025 00:32:43 03/12/2003/12/2025 [UNIT Y] ANEUP LOIDY NIPT for detailed report, see pdf See PDF normal Not Available [facility] [address], [place], [address], 03/12/2025 00:32:43 03/04/2003/04/2025 CBC W/DIF F WBC 6.6 10'3/ uL 3.5-10 .5 Not Available [facility] (Lab) [address], [place], [address], 03/05/2025 14:35:50 03/04/20 25 03/04/2025 CBC W/DIF F RBC 4.56 10'6/ uL (based on docume nted legal sex) 3.80-5 .20 Not Available [facility] (Lab) [address], [place], [address], 03/05/2025 14:35:50 03/04/20 25 03/04/2025 CBC W/DIF F HGB 12.2 g/dL (based on docume nted legal sex) 11.6-1 5.4 Not Available [facility] (Lab) [address], [place], [address], 03/05/2025 14:35:50 03/04/20 25 03/04/2025 CBC W/DIF F HCT 36.8 % (based on docume nted legal sex) 34.0-4 5.0 Not Available [facility] (Lab) [address], [place], [address], 03/05/2025 14:35:50 03/04/20 25 03/04/2025 CBC W/DIF F MCV 80.7 fL 80.0-9 9.0 Not Available [facility] (Lab) [address] [place], [address], 03/05/2025 14:35:50 03/04/20 25 03/04/2025 CBC W/DIF F MCH 26.8 pg 27.0-3 4.0 low Not Available [facility] (Lab) [address] [facility], [place], [address], 03/05/2025 14:35:50 03/04/20 25 03/04/2025 CBC W/DIF F MCHC 33.2 g/dL 32.0-3 5.5 Not Available [facility] (Lab) [address] [facility], [place], [address], 03/05/2025 14:35:50 03/04/20 25 03/04/2025 CBC W/DIF F RDW 14.6 % 11.0-1 5.0 Not Available [facility] (Lab) [address] [facility], [place], [address], 03/05/2025 14:35:50 03/04/20 25 03/04/2025 CBC W/DIF F plt 318 10'3/ uL 150-40 0 Not Available [facility] (Lab) [address] [facility], [place], [address], 03/05/2025 14:35:50 03/04/20 25 03/04/2025 CBC W/DIF F MPV 10.8 fL 8.8-12 .1 Not Available [facility] (Lab) [address] [facility], [place], [address], 03/05/2025 14:35:50 03/04/20 25 03/04/2025 CBC W/DIF F NRBC's 0.0 % 0.0 Not Available [facility] (Lab) [address] [facility], [place], [address], 03/05/2025 14:35:50 03/04/20 25 03/04/2025 CBC W/DIF F absolute NRBCs 0.0 10'3/ uL no refere nce range establ ished Not Available [facility] (Lab) [address] [facility], [place], [address], 03/05/2025 14:35:50 03/04/20 25 03/04/2025 CBC W/DIF F neutrophils 62.2 % 34.0-7 3.0 Not Available [facility] (Lab) [address] [facility], [place], [address], 03/05/2025 14:35:50 03/04/20 25 03/04/2025 CBC W/DIF F lymphocytes 29.5 % 15.0-5 0.0 Not Available [facility] (Lab) [address] [facility], [place], [address], 03/05/2025 14:35:50 03/04/20 25 03/04/2025 CBC W/DIF F monocytes 5.1 % 1.0-15 .0 Not Available [facility] (Lab) [address] [facility], [place], [address], 03/05/2025 14:35:50 03/04/20 25 03/04/2025 CBC W/DIF F eosinophils 2.1 % 0.0-8. 0 Not Available [facility] (Lab) [address] [facility], [place], [address], 03/05/2025 14:35:50 03/04/20 25 03/04/2025 CBC W/DIF F basophils 0.6 % 0.0-2. 0 Not Available [facility] (Lab) [address] [facility], [place], [address], 03/05/2025 14:35:50 03/04/20 25 03/04/2025 CBC W/DIF [...] separ ately if prese nt. Not Available [facility] (Lab) [address] [facility], [place], [address], 03/05/2025 14:35:50 03/04/20 25 03/04/2025 CBC W/DIF F absolute neutrophils 4.1 10'3/ uL 1.5-8. 0 Not Available [facility] (Lab) [address] [facility], [place], [address], 03/05/2025 14:35:50 03/04/20 25 03/04/2025 CBC W/DIF F absolute lymphocytes 2.0 10'3/ uL 1.0-4. 0 Not Available [facility] (Lab) [address] [facility], [place], [address], 03/05/2025 14:35:50 03/04/20 25 03/04/2025 CBC W/DIF F absolute monocytes 0.3 10'3/ uL 0.2-1. 0 Not Available [facility] (Lab) [address] [facility], [place], [address], 03/05/2025 14:35:50 03/04/20 25 03/04/2025 CBC W/DIF F absolute eosinophils 0.1 10'3/ uL 0.0-0. 6 Not Available [facility] (Lab) [address] [facility], [place], [address], 03/05/2025 14:35:50 03/04/20 25 03/04/2025 CBC W/DIF F absolute basophils 0.0 10'3/ uL 0.0-0. 3 Not Available [facility] (Lab) [address] [facility], [place], [address], 03/05/2025 14:35:50 03/04/20 25 03/04/2025 CBC W/DIF [...] jacobo book. nm.or g/gen derx Not Available [facility] (Lab) [address] [facility], [place], [address], 03/05/2025 14:35:50 03/04/2003/04/2025 HEPAT ITIS C ANTIB CARLEEN SCREE N, REFLE X TO CONFI RMATI ON hepatitis C antibody Non-re active non-re active Antib odies to HCV Not Detec onesimo, does not exclu de the possi bilit y of expos ure to HCV. Not Available [facility] (Lab) [address] [facility], [place], [address], 03/05/2025 14:35:51 03/04/2003/04/2025 HEPAT ITIS B SURFA CE ANTIG EN hepatitis B surface antigen Non-re active non-re active This assay was perfo rmed using [employer] ratio n reage nts and test kits. Value s obtai leland with other assay metho ds or kits canno t be used inter soler eably . Not Available [facility] (Lab) [address] [facility], [place], [address], 03/05/2025 14:35:52 03/04/2003/04/2025 HIV 1/2 ANTIG EN/AN TIBOD Y, REFLE X CONFI RMATI ON HIV antigen/anti body Nonrea ctive nonrea ctive HIV-1 antig en and HIV-1 /HIV- 2 antib odies were not detec onesimo. No labor atory evide nce of HIV infec tion. Not Available [facility] (Lab) [address] [facility], [place], [address], 03/05/2025 14:35:52 03/04/2003/04/2025 TSH, REFLE X FREE T4 TSH 1.28 uIU/m L 0.30-5 .33 Not Available [facility] (Lab) [address] [facility], [place], [address], 03/05/2025 14:35:53 03/04/20 25 03/04/2025 RUBEL LA IGG ANTIB CARLEEN, QUANT rubella antibodies, IgG Reacti ve reacti ve Not Available [facility] (Lab) [address] [facility], [place], [address], 03/05/2025 14:35:53 03/04/20 25 03/04/2025 RUBEL LA IGG ANTIB CARLEEN, QUANT rubella antibodies, IgG quant 28.3 IU/mL >=10 Non-r eacti ve (Non- Immun e) <10 IU/mL React phill (Immu ne) > or = 10 IU/mL Not Available [facility] (Lab) [address] [facility], [place], [address], 03/05/2025 14:35:53 03/04/20 25 03/04/2025 TYPE/ RH/SC REEN ABO/Rh type A POS Not Available [facility] (Lab) [address] [facility], [place], [address], 03/05/2025 14:35:54 03/04/20 25 03/04/2025 TYPE/ RH/SC REEN antibody screen NEG Not Available [facility] (Lab) [address], [place], [address], 03/05/2025 14:35:54 03/04/20 25 03/04/2025 TYPE/ RH/SC REEN exp date 2024 23:59 Not Available [facility] (Lab) [address] [place], [address], 03/05/2025 14:35:54 03/04/20 25 03/04/2025 RPR SCREE N, REFLE X TITER /CONF IRMAT ION RPR qualitative Nonrea ctive nonrea ctive Not Available [facility] (Lab) [address], [place], [address], 03/05/2025 14:35:54 03/04/2003/04/2025 HEMOG LOBIN A1C hemoglobin [...] >8.0% Actio n sugge sted Not Available [facility] (Lab) [address], [place], [address], 03/05/2025 14:35:55 03/05/20 25 03/05/2025 CT/GC AND TRICH OMONA S VAGIN MILA (RRNA ), URINE chlamydia trachomatis, PCR Negati ve negati ve Not Available [facility] (Lab) [address], [place], [address], 03/06/2025 22:36:04 03/05/20 25 03/05/2025 CT/GC AND TRICH OMONA S VAGIN MILA (RRNA ), URINE neisseria gonorrhoeae, PCR Negati ve negati ve Not Available [facility] (Lab) [address], [place], [address], 03/06/2025 22:36:04 03/05/20 25 03/05/2025 CT/GC AND TRICH OMONA S VAGIN MILA (RRNA ), URINE trichomonas vaginalis ribosomal RNA (rrna) Negati ve negati ve Not Available [facility] (Lab) [address], [place], [address], 03/06/2025 22:36:04 03/05/20 25 03/05/2025 CULTU RE: URINE result report SEE RESULT S BELOW Test: Cultu re: Urine Speci men Sourc e: Urine - Clean Catch Speci men Type: Urine Speci men Date: 1317 Resul t Date: 2130 Resul t Statu s: Final resul t Abnor mal: No Resul ting Lab: [facility] [address] [facility] [address] Tel: CULTU RE ----- ----- ----- --- No growt h in 1 day (dete ction level of 10,00 0 colon ies / ml.) Not Available [facility] (Lab) [address] [facility], [place], [address], 03/06/2025 22:36:04 03/05/20 25 03/05/2025 drug scree n, urine Amphetamines : negati ve Not Available [address], [place], [address], 03/05/2025 13:06:10 03/05/20 25 03/05/2025 drug scree n, urine Cannabinoids : positi ve Not Available [address], [place], [address], 03/05/2025 13:06:10 03/05/20 25 03/05/2025 drug scree n, urine Cocaine: negati ve Not Available [address], [place], [address], 03/05/2025 13:06:10 03/05/20 25 03/05/2025 drug scree n, urine Opiates: negati ve Not Available [address], [place], [address], 03/05/2025 13:06:10 03/05/20 25 03/05/2025 drug scree n, urine Phenocyclidi ne: negati ve Not Available [address], [place], [address], 03/05/2025 13:06:10 03/05/20 25 03/05/2025 drug scree n, urine Barbiturates : negati ve Not Available [address], [place], [address], 03/05/2025 13:06:10 03/05/20 25 03/05/2025 drug scree n, urine Benzodiazepi dea: negati ve Not Available [address], [place], [address], 03/05/2025 13:06:10 03/05/20 25 03/05/2025 drug scree n, urine Ethanol: negati ve Not Available [address], [place], [address], 03/05/2025 13:06:10 03/05/20 25 03/05/2025 drug scree n, urine Hallucinogen s: negati ve Not Available [address], [place], [address], 03/05/2025 13:06:10 03/05/20 25 03/05/2025 drug scree n, urine Inhalants: negati ve Not Available [address], [place], [address], 03/05/2025 13:06:10 03/05/20 25 03/05/2025 drug scree n, urine Anabolic Steroids: negati ve Not Available [address], [place], [address], 03/05/2025 13:06:10 04/28/20 25 04/28/2025 CULTU RE: URINE result report SEE RESULT S BELOW Test: Cultu re: Urine Speci men Sourc e: Urine - Clean Catch Speci men Type: Urine Speci men Date: 2024 1307 Resul t Date: 20246 Resul t Statu s: Final resul t Abnor mal: No Resul ting Lab: [facility] [address] [facility] [address] Tel: CULTU RE ----- ----- ----- --- No growt h in 1 day (dete ction level of 10,00 0 colon ies / ml.) Not Available [facility] (Lab) [address] [place], [address], 04/29/2025 22:50:16 06/25/20 25 06/25/2025 HEMAT OCRIT (HCT) HCT 31.9 % (based on docume nted legal sex) 34.0-4 5.0 low Not Available [facility] (Lab) [address] [place], [address], 06/26/2025 13:07:09 06/25/20 25 06/25/2025 HEMOG LOBIN (HGB) HGB 10.4 g/dL (based on docume nted legal sex) 11.6-1 5.4 low Not Available [facility] (Lab) [address] [place], [address], 06/26/2025 13:07:09 06/25/20 25 06/25/2025 GTT - GESTA MARQUES L SCREE N, ACOG OB glucose, 1 hour screen 112 mg/dL 70-135 Not Available [facility] (Lab) [address] [place], [address], 06/26/2025 13:07:10 06/25/20 25 06/25/2025 HIV 1/2 ANTIG EN/AN TIBOD Y, REFLE X CONFI RMATI ON HIV antigen/anti body Nonrea ctive nonrea ctive HIV-1 antig en and HIV-1 /HIV- 2 antib odies were not detec onesimo. No labor atory evide nce of HIV infec tion. Not Available [facility] (Lab) [address] [place] [place], [address], 06/26/2025 13:07:10 06/25/20 25 06/25/2025 RPR SCREE N, REFLE X TITER /CONF IRMAT ION RPR qualitative Nonrea ctive nonrea ctive Not Available [facility] (Lab) [address] [facility], [place], [address], 06/26/2025 13:07:11 03/04/20 25 03/04/2025 US, obste tric, nucha l trans lucen cy No observ ation record ed. [email or web address] Sun [address], [place], [address], 03/04/2025 12:51:34 03/04/20 25 03/04/2025 US, obste tric, 1st trime ster No observ ation record ed. [email or web address] Sun [address], [place], [address], 03/04/2025 12:49:29 03/04/20 25 03/04/2025 US, obste tric, follo w-up No observ ation record ed. [email or web address] [address], [place], [address], 03/08/2025 16:22:05 04/28/20 25 04/28/2025 US, obste tric, 2nd or 3rd trime ster No observ ation record ed. [email or web address] Sun [address], [place], [address], 04/28/2025 18:35:16 04/28/20 25 04/28/2025 US, obste tric, 2nd or 3rd trime ster No observ ation record ed. [email or web address] [address], [place], [address], 04/28/2025 14:33:42 05/28/20 25 05/28/2025 US, obste tric, follo w-up No observ ation record ed. [facility] [address], [place], [address], 05/28/2025 14:43:14 05/28/2005/28/2025 US, obste tric, follo w-up No observ ation record ed. [email or web address] [address], [place], [address], 05/28/2025 12:23:54 07/06/20 25 07/06/2025 US, obste tric, follo w-up No observ ation record ed. [facility] [address], [place], [address], 07/06/2025 14:22:13 07/06/20 25 07/06/2025 US, obste tric, follo w-up No observ ation record ed. [place] [address], [place], [address], 07/10/2025 15:59:39 Result Notes None recorded. Problems Name Problem SNOMED Code Status Onset Date Resolution Date Notes Provider Name and Address Organization Details Recorded Time History of chlamydi al infectio n 786573369 Completed chl neg John vargas, [facility] 4 15:43:29 Low-lyin g placenta 110602438 Completed resolved Sakina Cantrell CNM [address], [place], [address], [facility] 4 12:41:38 Pregnanc y 40965840 Completed 202310/27/2024 Bree Nevarez null, [facility] 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 4 17:47:43 Mixed anxiety and depressi ve disorder 323821928 Active 2023 Corine Novak [facility] 4 12:29:58 Pregnanc y 31950695 Active 2024 Bree Nevarez [facility], [facility] 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 5 13:19:25 Problem Notes None recorded. Procedures Surgical History Date Name Laterality Status Provider Name and Address Organization Details Recorded Time 02/19/20 24 Date of Last Pap Smear completed Corine Novak [facility] 02/19/2024 15:34:35 12/26/19 23 Nexplanon Removal completed Jacey Chavez [facility] [address], [place], [address], [facility] 12/25/2022 15:19:15 09/07/19 23 Control Implant Insertion completed Jacey Chavez [facility] [address], [place], [address], [facility] 09/07/2022 14:46:07 08/05/19 11 Tonsillectomy completed Corine Novak [facility] 10/17/2023 12:48:17 Imaging Results None recorded. Procedure Notes None recorded. Medical Equipment None Reported. Allergies Allergen ID Allergen Name Allergen Category Reaction Reaction Severity Criticality Documentation Date Start Date Code Code System Note Provider Name and Address Organization Details Recorded Time 36012 carbamaze pine medicatio n Not available Not available Not available 04/01/20242001 RxNorm Corine Novak [facility], [facility] 18:25:07 97412 bisacodyl medicatio n rash Not available high 06/25/20252009 1596 RxNorm Not Available [place] - External Data Service - prod 03:07:10 [...] and Address Organization Details Last Updated DateTime 07/23/2025 58663.823 36 g 22 kg/m2 162.56 cm 114/67 mm[Hg] Jazmine Casarez [facility] 07/23/2025 14:12:12 Social History Question Answer Notes LastModified by Organizat ion Details LastModified Time Tobacco Smoking Status Never Smoker Sharon Eldridge [facility] 05/01/2023 15:09:00 If You Are , What Was Your Level Of Alcohol Consumption Prior To ? Occasional [email or web address] Information not available 02/19/2024 Are You Blind [...] To Be High Risk For COVID-19? No [email or web address] Information not available 07/14/2021 Are You Deaf Or Do You Have Serious Difficulty Hearing? No Information not available 03/15/2021 What Type Of Diet Are You Following? REGULAR Information n ot available 03/15/2021 Do You Use Your Seat Belt Or Car Seat Routinely? Yes Information not available 03/15/2021 Are You Sexually Active? Yes [email or web address] Information not available 05/01/2023 Do You Have Smoke And Carbon Monoxide Detectors In Your Home? Yes Information not available 03/15/2021 Do You Use Sunscreen Routinely? Yes Information not available 03/15/2021 Has Tobacco Cessation Counseling Been Provided? No [email or web address] Information not available 05/01/2023 Do You Have Difficulty Walking Or Climbing Stairs? No [email or web address] Information not available 05/01/2023 Sex: Unknown Functional Status Question Answer Note LastModified by Organizat ion Details LastModified Time Do you use any illicit or recreational drugs? Yes marijuana [email or web address] Information not available 02/19/2024 Do you or have you ever used any other forms of tobacco or nicotine? Yes [email or web address] Information not available 02/19/2024 What is your level of alcohol consumption? None Information not available 03/15/2021 Are you able to walk independently without assistance or assistive devices? [email or web address] Information not available 03/15/2021 Are you able to care for yourself independently? Yes [email or web address] Information not available 05/01/2023 Do you have difficulty dressing, bathing, grooming, or toileting? No [email or web address] Information not available 05/01/2023 Do you or have you ever used e-cigarettes or vape? Current user of electronic cigarettes [email or web address] Information not available 02/19/2024 What is your exercise level? None Information not available 03/15/2021 Mental Status Question Answer Note LastModified by Organization D etails LastModified Time Do you feel stressed (tense, restless, nervous, or anxious, or unable to sleep at night)? [id number] Information not available 03/15/2021 Family History Relationship [...] ICD10 Code Diagnosis IMO Codes Diagnosis Note [id number] Sakina Cantrell [facility] [address],[place] [address] 06/25/2025 11:15:34 06/25/2025 11:57:57 Gestation period, 29 weeks 75372253 Z3A.29 [id number] [id number] GUANAKITO BARRETT MD Sun [address],[place] [address] 07/06/2025 11:27:10 07/06/2025 12:36:34 Observational assessment 107520797 Z03.74 Z3A.30 5810156 [id number] GUANAKITO BARRETT MD Sun [address],[place] [address] 07/06/2025 11:27:24 07/06/2025 12:57:26 care status 505018241 Z34.83 [id number] Sakina Cantrell [facility] [address],[place] [address] 07/23/2025 13:58:26 07/23/2025 14:37:11 Gestation period, 33 weeks 16800637 Z3A.33 [id number] Health Concerns Section Related Observation LastModified by Organization Detai ls LastModified Time None Recorded Concern Status LastModified by Organization Details LastModified Time None Recorded Payers Encounter Date Sequence Insurance Name Policy Number Policy Shine Covered Member ID Shine Member ID Guarantor Name 07/23/2025 1 [facility] [id number] 1 Cornel Gary [id number] S Mae Frances 07/23/2025 2 [place] [employer] Mae Frances [id number] Mae Frances Notes Date Note Type Note Provider Name and Address Organization Details Recorded Time 07/23/2025 text/html Generic HPI TemplateReported by Patient Sakina SuarezPetra Cantrell, ROBBY [address], [place], [address], [facility] 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 Status 02/25/20 25 1 A Positive 111 OPEN Fetus Data First Name Last Name Admitted to NICU Weight (g) Sex Living Outcome Pediatric Complications Fetus ID Race Codes Race Delivery Type [id number] Problems Problem Notes +THC in urine Problem Name Start Date End Date Resolution 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 584453 03 + 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 2023 [...] Weight in lbs Pre/Post Dialysis Refused Weight 112.228559272302 BP Diastolic BP Location Tested BP Systolic BP Type 62 R arm 112 sitting Fetus Heart Rate Present Fetus Movement A No Comments Flowsheet Date 03/10/2025 Frias Score Blood Edema Fundus Height Fundus Units Glucose Ketones Leukocytes Nitrite Labor Signs Protein Cervic Dilation Cervic Effacement Cervic Station Type Weight in lbs Pre/Post Dialysis Refused 113.813240588082 BP Diastolic BP Location Tested BP Systolic BP Type 63 L arm 106 sitting Fetus Heart Rate Present Fetus Movement A Yes Comments reviewed US, sp was at [facility], appt got rescheduledpt has hx of uncomplicated [...] Weight in lbs Pre/Post Dialysis Refused Weight 115.784697592857 BP Diastolic BP Location Tested BP Systolic [...] Type Weight in lbs Pre/Post Dialysis Refused 119.165760723983 BP Diastolic BP Location Tested BP Systolic [...] Type Weight in lbs Pre/Post Dialysis Refused 123.014490160839 BP Diastolic BP Location Tested BP Systolic [...] Weight in lbs Pre/Post Dialysis Refused Weight 127.194345436041 BP Diastolic BP Location Tested BP Systolic [...] Type Weight in lbs Pre/Post Dialysis Refused [id number] BP Diastolic BP Location Tested BP Systolic [...]
--- OUTSIDE RECORDS SUMMARY | 2025-07-30 15:31 | XMS_ITS | Clinical Summary ---
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
--- OUTSIDE RECORDS SUMMARY | 2025-07-30 15:31 | XMS_ITS | Data Portability ---
Author Organization [facility] [place] Address [address] [place] [address] Assessment Encounter Date Assessment Date Assessment LastModified [...] US, obstetr ic, follow- up 2024 025 [email or web address] [address], [address], [place], [address], 07/06/2025 17:46:22 US, obstetr ic, follow- up 2024 025 [email or web address] [place], [address], [place], [address], 05/28/2025 14:13:06 Medication Orders None recorde d. Patient TargetsNo targets recorded. Patient InstructionsNo instructions recorded. Reason for Referral None Reported. Results Created Date Observation Date Name Description Value Unit Range Abnormal Flag Note LastModifiedBy Organization Detail LastModifiedTime 04/28/2004/2804/28/2025 CULTU RE: URINE result report SEE RESULT S BELOW Test: Cultu re: Urine Speci men Sourc e: Urine - Clean Catch Speci men Type: Urine Speci men Date: 2024 1307 Resul t Date: 20246 Resul t Statu s: Final resul t Abnor mal: No Resul ting Lab: [facility] [address] [facility] [address] Tel: CULTU RE ----- ----- ----- --- No growt h in 1 day (dete ction level of 10,00 0 colon ies / ml.) Not Available [facility] (Lab) [address] [facility], [place], [address], 04/29/2025 22:50:16 06/25/20 25 06/25/2025 HEMAT OCRIT (HCT) HCT 31.9 % (based on docume nted legal sex) 34.0-4 5.0 low Not Available [facility] (Lab) [address] [place], [address], 06/26/2025 13:07:09 06/25/20 25 06/25/2025 HEMOG LOBIN (HGB) HGB 10.4 g/dL (based on docume nted legal sex) 11.6-1 5.4 low Not Available [facility] (Lab) [address] [place], [address], 06/26/2025 13:07:09 06/25/20 25 06/25/2025 GTT - GESTA MARQUES L SCREE N, ACOG OB glucose, 1 hour screen 112 mg/dL 70-135 Not Available [facility] (Lab) [address] [place], [address], 06/26/2025 13:07:10 06/25/20 25 06/25/2025 HIV 1/2 ANTIG EN/AN TIBOD Y, REFLE X CONFI RMATI ON HIV antigen/anti body Nonrea ctive nonrea ctive HIV-1 antig en and HIV-1 /HIV- 2 antib odies were not detec onesimo. No labor atory evide nce of HIV infec tion. Not Available [facility] (Lab) [address] [facility], [place], [address], 06/26/2025 13:07:10 06/25/20 25 06/25/2025 RPR SCREE N, REFLE X TITER /CONF IRMAT ION RPR qualitative Nonrea ctive nonrea ctive Not Available [facility] (Lab) [address] [facility], [place], [address], 06/26/2025 13:07:11 04/28/20 25 04/28/2025 US, obste tric, 2nd or 3rd trime ster No observ ation record ed. [facility] [address], [place], [address], 04/28/2025 18:35:16 04/28/20 25 04/28/2025 US, obste tric, 2nd or 3rd trime ster No observ ation record ed. clarisa Gomeze [address], [place], [address], 04/28/2025 14:33:42 05/28/20 25 05/28/2025 US, obste tric, follo w-up No observ ation record ed. [facility] [address], [place], [address], 05/28/2025 14:43:14 05/28/20 25 05/28/2025 US, obste tric, follo w-up No observ ation record ed. [email or web address] Ksenia [address], [place], [address], 05/28/2025 12:23:54 07/06/20 25 07/06/2025 US, obste tric, follo w-up No observ ation record ed. [facility] [address], [place], [address], 07/06/2025 14:22:13 07/06/2007/06/2025 US, obste tric, follo w-up No observ ation record ed. BISI Mccormack [address], [place], [address], 07/10/2025 15:59:39 Result Notes None recorded. Problems Name Problem SNOMED Code Status Onset Date Resolution Date Notes Provider Name and Address Organization Details Recorded Time History of chlamydi al infectio n 747689069 Completed chl neg John Marquez null, [facility] 15:43:29 Low-lyin g placenta 990469800 Completed resolved Sakina Cantrell, SHAYY [address], [place], [address], [facility] 4 12:41:38 Pregnanc y 63383614 Completed 202310/27/2024 Bree Nevarez null, [facility] 5 13:57:42 Alpha thalasse cristina 07301385 Completed 2023 silent carrier; low risk John Marquez null, [facility] 4 17:47:43 Mixed anxiety and depressi ve disorder 899198865 Active 2023 Corine Novak null, [facility] 4 12:29:58 Pregnanc y 03377310 Active 2024 Bree Nevarez null, [facility] 5 13:57:42 Alpha plus thalasse cristina 72395641 Active 2024 + 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 2023 Nilsa Jim null, [facility] 5 13:19:25 Problem Notes None recorded. Procedures Surgical History Date Name Laterality Status Provider Name and Address Organization Details Recorded Time 02/19/20 24 Date of Last Pap Smear completed Corine Novak [facility] 02/19/2024 15:34:35 12/26/19 23 Nexplanon Removal completed Jacey Chavez [facility] [address], [place], [address], [facility] 12/25/2022 15:19:15 09/07/19 23 Control Implant Insertion completed Jacey Chavez [facility] [address], [place], [address], [facility] 09/07/2022 14:46:07 08/05/19 11 Tonsillectomy completed Corine Novak [facility] 10/17/2023 12:48:17 Imaging Results None recorded. Procedure Notes None recorded. Medical Equipment None Reported. Allergies Allergen ID Allergen Name Allergen Category Reaction Reaction Severity Criticality Documentation Date Start Date Code Code System Note Provider Name and Address Organization Details Recorded Time 49047 carbamaze pine medicatio n Not available Not available Not available 04/01/20242001 RxNorm Corine Novak [facility] 4 18:25:07 47342 bisacodyl medicatio n rash Not available high [...] hours by oral route for 5 days. 11/20 /2024 completed Not Available Not Available Not Available [...] Address Organization Details Last Updated DateTime 05/28/2025 82116.77820 g 125/76 mm[Hg] [facility] 05/28/2025 11:40:46 Date Recorded Body weight Body mass index (BMI) Body height Systolic And Diastolic Provider Name and Address Organization Details Last Updated DateTime 06/25/2025 35466.861 51 g 21.1 kg/m2 162.56 cm 121/73 mm[Hg] Sharon Eldridge [facility] 06/25/2025 11:34:00 Date Recorded Body height Body mass index (BMI) Body weight Systolic And Diastolic Provider Name and Address Organization Details Last Updated DateTime 07/06/2025 162.56 cm 21.8 kg/m2 52989.23 g 104/67 mm[Hg] Clotilde [facility] 07/06/2025 12:30:33 Date Recorded Body weight Body mass index (BMI) Body height Systolic And Diastolic Provider Name and Address Organization Details Last Updated DateTime 07/23/2025 30418.823 36 g 22 kg/m2 162.56 cm 114/67 mm[Hg] Jazmine Casarez [facility] 07/23/2025 14:12:12 Social History Question Answer Notes LastModified by Organizat ion Details LastModified Time Tobacco Smoking Status Never Smoker Sharon Eldridge sam, [facility] 05/01/2023 15:09:00 If You Are , What Was Your Level Of Alcohol Consumption Prior To ? Occasional [email or web address] Information not available 02/19/2024 Are You Blind Or Do You Have Difficulty Seeing? No Information n ot available 03/15/2021 What Is Your Level Of Caffeine Consumption? None Information not available 03/15/2021 In The 14 Days Before Symptom Onset, Have You Had Close Contact With A Laboratory-confirm ed COVID-19 While That Case Was Ill? No [email or web address] Information n ot available 07/14/2021 In The 14 Days Before Symptom Onset, Have You Had Close Contact With A Person Who Is Under Investigation For COVID-19 While That Person Was Ill? No [email or web address] Information not available 07/14/2021 Have You Been To An Area Known To Be High Risk For COVID-19? No [email or web address] Information not available 07/14/2021 Are You Deaf Or Do You Have Serious Difficulty Hearing? No Information not available 03/15/2021 What Type Of Diet Are You Following? REGULAR Information n ot available 03/15/2021 Do You Use Your Seat Belt Or Car Seat Routinely? Yes Information not available 03/15/2021 Are You Sexually Active? Yes [email or web address] Information not available 05/01/2023 Do You Have Smoke And Carbon Monoxide Detectors In Your Home? Yes Information not available 03/15/2021 Do You Use Sunscreen Routinely? Yes Information not available 03/15/2021 Has Tobacco Cessation Counseling Been Provided? No Information not available 05/01/2023 Do You Have Difficulty Walking Or Climbing Stairs? No [email or web address] Information not available 05/01/2023 Sex: Unknown Functional Status Question Answer Note LastModified by Organizat ion Details LastModified Time Do you use any illicit or recreational drugs? Yes marijuana [email or web address] Information not available 02/19/2024 Do you or have you ever used any other forms of tobacco or nicotine? Yes [email or web address] Information not available 02/19/2024 What is your level of alcohol consumption? None Information not available 03/15/2021 Are you able to walk independently without assistance or assistive devices? [email or web address] Information not available 03/15/2021 Are you able to care for yourself independently? Yes [email or web address] Information not available 05/01/2023 Do you have difficulty dressing, bathing, grooming, or toileting? No [email or web address] Information not available 05/01/2023 Do you or have you ever used e-cigarettes or vape? Current user of electronic cigarettes [email or web address] Information not available 02/19/2024 What is your exercise level? None Information not available 03/15/2021 Mental Status Question Answer Note LastModified by Organization D etails LastModified Time Do you feel stressed (tense, restless, nervous, or anxious, or unable to sleep at night)? [id number] Information not available 03/15/2021 Family History Relationship [...] ICD10 Code Diagnosis IMO Codes Diagnosis Note [id number] [facility] [address] [address] 03/15/2021 10:56:15 03/15/2021 11:58:21 Cystic acne 39812230 L70.0 N92.0 Discussed all control options in [...] or sooner if questions Gynecologi c examination 08513149 Z01.419 Take Calcium with Vitamin D 1200mg [...] screen today but will consider moving forwards. [id number] Sakina Cantrell [facility] [address],[place] [address] 07/14/2021 10:04:12 07/14/2021 11:55:46 Acne 22139265 L70.9 [facility] ion care management 045939966 Z30.9 [id number]acey [address] [facility] [address],[facility] [place] [address] 08/30/2021 09:26:58 08/30/2021 13:38:10 Vaginitis 65689902 N76.0 Today we agreed to treatment and [...] this patient s visit, including available hand filters assembler upon arrive, temperatur e check and being asked a series of screening questions. All staff wore face coverings during this encounter, as well as provided additional cleaning and sanitizing of all surfaces, including countertop s, pens, chairs, door handles, light switches, etc, prior to and following the patient s visit. [id number] Kristine Baires [facility] [address],[place] [address] 03/20/2022 11:08:37 03/20/2022 12:30:57 Irregular periods 59813061 N92.6 Venereal d isease screening 364621952 Z11.3 Sexually t ransmitted infectious disease 4306207 A64 Vaginitis 19622306 N76.0 Urine hcg (-) today, patient request [...] counseling and review of plan of care. [id number] Kristine Baires [facility] [place] [address],[place] [address] 04/11/2022 10:04:33 04/11/2022 11:47:18 Lesion of vulva 343897312 N90.89 Lesion highly suspicious for HSV infection, discussed this with patientHSV PCR sentBlood STI testing declinedChino young is too early for JARAD for recent (+) chlamydia, she has an appointmen t scheduled to [facility] next month for thisDanette stopped taking her OCP due to acne, declines any BC nowCondom use encouraged Vulvar care guidelines discussedW ill await HSV testing Time spent in visit is a total of 30 mins with at least 50% of visit consisting of counseling and review of plan of care. Contracept ion care management 693063906 Z30.9 Venereal d isease screening 801546622 Z11.3 [id number] [facility] [address] [address] 09/06/2022 16:53:35 09/06/2022 17:13:39 Contraception care management 725851798 Z30.9 Discussed all control options in depth [...] counseling and review of plan of care. [id number] Jacey Chavez [facility] [address],[place] [address] 09/07/2022 14:11:06 09/07/2022 15:29:09 Implantation of subcutaneous contraceptive 598987255 Z30.9 Patient is here currently on her [...] 3mos med check or sooner if needed [id number] [facility] [address],[facility] [place] [address] 11/21/2022 15:04:09 11/21/2022 17:23:09 Venereal disease screening 517029991 Z11.3 STD screen swab updatedSTD serum panel updatedNew sexual partnerWil l contact with results Time spent in visit is a total of 15 mins with at least 50% of visit consisting of counseling and review of plan of care. Abnormal u terine bleeding 5215964110 9100 N93.9 UPT negIf continues consider course of estradiol 1mg x 20 days.Under stands that this can be normal 3-6mos with initiation of nexplanon. Will update us Sexually t ransmitted infectious disease 2930198 A64 [id number] Jacey Chavez [facility] [address] [address] 12/25/2022 14:42:59 12/25/2022 15:32:53 Venereal disease screening 555306658 Z11.3 Here today for JARAD.Took all abxPartner treatedUri ne JARAD sentNEg sxs Time spent in visit is a total of 10 mins with at least 50% of visit consisting of counseling and review of plan of care.Not including time spent on procedure. Removal of subcutaneous contraceptive 794610304 Z30.46 Removal site was cleansed with betadine and 3cc of lidocaine used for anesthesia . Device was removed in normal fashion without difficulty . Steri stips and pressure bandage placed. Opts to use CondomsUnd erstands there is no contracept ion (unless uses condoms) once device is removed.Un derpepein g verbalized . [id number] Jacey Chavez [facility] [address] [address] 04/24/2023 15:42:02 04/25/2023 12:38:44 Easy bruising 085623380 R58 Today we discussed updating lab work [...] review of plan of care. Cystic acne 42583926 L70 .0 N92.0 Consider derm referral if neeeded [id number] Jacey Chavez [facility] [address] [address] 05/01/2023 15:08:53 05/02/2023 16:57:16 Cystic acne 25189878 L70.0 N92.0 Today we agreed to consider [...] counseling and review of plan of care. [id number] [facility] [address] [address] 06/19/2023 09:20:29 06/19/2023 09:55:28 Furuncle of vulva 503857753 N76.4 Boils on vulva found on exam [...] plan of care. Reproducti ve care management 651290188 Z31.9 Trying to conceiveWi ll start PNV Counseled on reproducti ve timeline, signs/sx's . [id number] Jones Koenig MD [facility] [address] [address] 10/17/2023 12:37:37 10/17/2023 13:41:58 Abnormal uterine bleeding 9030541453 9100 N93.9 23-year-ol d patient with abnormal [...] was counseling . Disorder o f menstruation 685397642 N92.6 [id number] Jones Koenig MD [facility] [address] [address] 10/28/2023 14:29:56 10/28/2023 15:30:52 Abnormal uterine bleeding 1966982646 9100 N93.9 23-year-ol d patient with abnormal [...] ce. More than 50% was counseling . [id number] Jones Koenig MD [facility] [address] [address] 10/28/2023 15:18:58 10/28/2023 16:39:54 Abnormal uterine bleeding 1409966209 9100 N93.9 this patient is a 23-year-ol [...] ce. More than 50% was counseling . [id number] Jones Koenig MD [facility] [address] [address] 02/19/2024 14:52:45 02/19/2024 15:21:14 Uterine size for dates discrepancy 686838746 O26.841 Z3A.01 [id number] Sakina Cantrell CNM [facility] [address],[place] [address] 02/19/2024 14:52:59 02/19/2024 16:08:22 Amenorrhea 15842919 N91.2 +UPTcontin ue PNVplan 12 week NIPS and new obpap collected Gynecologi c examination 56227701 Z01.419 Nausea and vomiting 1693 1999 R11.2 [id number] Jones Koenig MD [facility] [address] [address] 04/01/2024 17:27:04 04/02/2024 07:54:22 screening 631509564 Z36.82 Z3A.12 [id number] Sakina Cantrell CNM [place] [address],[place] [address] 04/01/2024 17:27:30 04/02/2024 17:31:29 Gestation period, 12 weeks 27571995 Z3A.12 continue vitamin [id number] Sakina Cantrell CNM [place] [address] [address] 04/29/2024 16:22:12 04/29/2024 16:50:41 Gestation period, 16 weeks 49988923 Z3A.16 continue vitamin Anxiety 55132789 F41.9 start zoloft 25 mg daily, if any suicidal thoughts to edse risks and benefitsf/ u 4 weeks or sooner if neededmay have reglan if calls [id number] Jones Koenig MD [facility] [address],[place] [address] 05/26/2024 14:35:17 05/26/2024 17:52:03 screening for malformation 484666311 Z36.3 Z3A.20 [id number] Sakina Cantrell CNM [place] [address],[place] [address] 05/27/2024 17:14:49 05/28/2024 10:29:26 Gestation period, 20 weeks 24921482 Z3A.20 Anxiety 96054832 F41.9 continue zoloft 25 mg daily, if any suicidal thoughts to edse risks and benefitsf/ u 4 weeks or sooner if neededmay have reglan if calls [id number] Jones Koenig MD [facility] [address],[place] [address] 06/24/2024 11:40:27 06/24/2024 12:37:10 Low-lying placenta 258740846 O44.42 Z3A.24 [id number] [facility] [address] [address] 06/24/2024 11:41:44 06/24/2024 12:43:47 Gestation period, 24 weeks 071114606 Z3A.24 [id number] [facility] [address],[place] [address] 07/31/2024 11:09:29 07/31/2024 11:59:32 Gestation period, 29 weeks 61333714 Z3A.29 [id number] Jnoes Koenig MD [place] [address],[place] [address] 08/12/2024 09:12:24 08/12/2024 10:05:14 Uterine size for dates discrepancy 522662473 O26.843 Z3A.31 [id number] [facility] [address] [address] 08/12/2024 09:12:58 08/12/2024 10:58:29 Gestation period, 31 weeks 40846573 Z3A.31 [id number] Sakina Cantrell CNM [place] [address],[place] [address] 08/26/2024 15:22:41 08/26/2024 16:03:35 Gestation period, 33 weeks 85075812 Z3A.33 Infection of tooth 23461 8007 K04.7 [id number] [facility] [address],[place] [address] 09/09/2024 14:13:46 09/09/2024 14:53:11 Gestation period, 35 weeks 99318968 Z3A.35 [id number] Jones Koenig MD [facility] [address] [address] 09/16/2024 13:54:55 09/16/2024 14:31:09 Low maternal weight gain 20332400 O26.13 Z3A.36 [id number] [facility] [address] [address] 09/16/2024 13:55:25 09/16/2024 15:17:37 Gestation period, 36 weeks 45653891 Z3A.36 Anxiety 74265052 F41.9 [id number] [facility] [address] [address] 09/23/2024 14:14:35 09/23/2024 14:44:24 Gestation period, 37 weeks 19986913 Z3A.37 [id number] [facility] [address] [address] 09/30/2024 13:57:10 09/30/2024 14:34:28 Gestation period, 38 weeks 59218134 Z3A.38 [id number] [facility] [address],[place] [address] 2024 17:17:21 10/04/2024 23:16:42 Abdominal pain in 198874880 O99.891 [id number] [facility] [address],[place] [address] 10/07/2024 09:37:07 10/07/2024 10:22:59 Gestation period, 39 weeks 30302369 Z3A.39 [id number] [facility] [address],[place] [address] 10/23/2024 15:14:56 10/23/2024 15:47:27 Constipation 38870734 K59.00 continue miralax, d/c iron, ok for gummy vitamin f/u visit Hemorrhoids 64428176 K64 .9 [id number] [facility] [address],[place] [address] 11/11/2024 12:20:06 11/11/2024 13:36:07 Alopecia 37735419 L65.9 Fatigue 30969548 R53.83 care 13127072 8 Z39.2 [id number] Jones Koenig MD [facility] [address],[place] [address] 01/06/2025 11:46:15 01/06/2025 13:27:48 Finding of menstrual bleeding 606497191 Z36.87 Z3A.01 838609 [id number] Jones Koenig MD [facility] [address],[place] [address] 01/29/2025 10:59:18 01/29/2025 11:29:28 [id number] [facility] [address],[place] [address] 01/29/2025 10:59:36 01/29/2025 12:07:32 Mixed anxiety and depressive disorder 343708515 F41.8 0750383 Amenorrhea 32037357 N91. 2 65012 +UPTcontin ue PNVplan 12 week NIPS and new obpap up to daterefill sertraline [id number] Jones Koenig MD [facility] [address] [place] [address] 03/04/2025 11:49:53 03/04/2025 12:33:33 screening 448821594 Z36.82 Z3A.12 6953636489 [id number] [facility] [address],[place] [address] 03/05/2025 11:51:16 03/05/2025 13:26:19 Dental abscess 898884348 K04.7 478510 [id number] Sakina Cantrell CNM [facility] [address],[place] [address] 03/10/2025 12:02:00 03/10/2025 12:31:22 Gestation period, 13 weeks 10994207 Z3A.13 6229789 Candidiasis of vagina 72 036048 B37.31 237002 004147 Jones Koenig MD [facility] [address],[place] [address] 04/28/2025 11:37:51 04/28/2025 12:54:31 Screening status 105221274 Z36.3 Z3A.20 7343200858 [id number] [facility] [address],[place] [address] 04/28/2025 11:39:11 04/28/2025 12:57:05 Gestation period, 20 weeks 22812072 Z3A.20 9511205 [id number] Jones Koenig MD [facility] [address],[place] [address] 05/28/2025 11:01:00 05/28/2025 11:35:34 anatomy study 278162127 Z36.2 O35.8XX0 Z3A.25 4496622141 [id number] Sakina Cantrell CNM [facility] [address],[place] [address] 05/28/2025 11:01:17 05/28/2025 12:11:51 Gestation period, 25 weeks 57129696 Z3A.25 9517581 [id number] Sakina Cantrell CNM [facility] [address],[place] [address] 06/25/2025 11:15:34 06/25/2025 11:57:57 Gestation period, 29 weeks 39500771 Z3A.29 0666908 [id number] GUANAKITO BARRETT MD [facility] [address],[place] [address] 07/06/2025 11:27:10 07/06/2025 12:36:34 Observational assessment 386295526 Z03.74 Z3A.30 6262306 [id number] GUANAKITO BARRETT MD [facility] [address],[place] [address] 07/06/2025 11:27:24 07/06/2025 12:57:26 care status 309439589 Z34.83 66800189 [id number] [facility] [address],[place] [address] 07/23/2025 13:58:26 07/23/2025 14:37:11 Gestation period, 33 weeks 90986204 Z3A.33 1881258 Health Concerns Section Related Observation LastModified by Organization Detai ls LastModified Time None Recorded Concern Status LastModified by Organization Details LastModified Time None Recorded Advance Directives Directive None Recorded Payers Insurance Date Sequence Insurance Name Policy Number Policy Shine Covered Member ID Shine Member ID Guarantor Name 07/26/2025 1 [facility] [id number] 1 Cornel Gary [id number] S Mae Frances 07/20/2025 1 [facility] ON OR AFTER 02/02/21 (MEDICAID REPLACEMENT - HMO) Mae Frances [id number] Mae Frances 07/20/2025 1 [facility] ON OR AFTER 02/02/21 (MEDICAID REPLACEMENT - HMO) Mae Frances [id number] Mae Montesinos Allgire 07/20/2025 2 [place] Mae Frances [id number] Mae Lopezre 07/20/2025 2 [facility] ON OR AFTER 02/02/21 (MEDICAID REPLACEMENT - HMO) Mae Frances [id number] Mae Frances 07/20/2025 1 [facility] - DOS ON OR AFTER 21 (MEDICAID REPLACEMENT - HMO) Mae Frances [id number] Mae Frances Notes Date Note Type Note Provider Name and Address Organization Details Recorded Time 05/28/2025 text/html Generic HPI TemplateReported by Patient Sakina Cantrell CNM [address], [place], [address], [facility] 05/28/2025 12:06:11 07/06/2025 text/html Generic HPI TemplateReported by Patient GUANAKITO BARRETT MD [address], [place], [address], [facility] 07/06/2025 12:56:14 07/23/2025 text/html Generic HPI TemplateReported by Patient Sakina Cantrell CNM [address], [place], [address], [facility] 07/23/2025 14:35:14 OBGyn Episode Ob Episode Information Episode Created Date Number of Fetuses Patient Bloodtype Patient rh Status Prepregnancy Weight lbs Domestic Partner Domestic Partner Phone Father Name Manager Energy Status 04/01/20 24 1 A Positive 104 Stan Willyar d CLOSED Fetus Data First Name Last Name Admitted to NICU Weight (g) Sex Living Outcome Pediatric Complications Fetus ID Race Codes Race Delivery Type M true Full Term [id number] Vaginal Delivery Problems Problem Notes 32wk growth us Problem Name Start Date End Date Resolution Snomed Code Not e History of chlamydial infection 277332847 chl neg Alpha thalassemia 04/16/2024 [id number] s ilent carrier; low risk Low-lying placenta 445220417 r esolved Valerio Calculation Initial Valerio Date [...] Weight in lbs Pre/Post Dialysis Refused Weight 104.270814591678 BP Diastolic BP Location Tested BP Systolic [...] Type Weight in lbs Pre/Post Dialysis Refused 105.430376432910 BP Diastolic BP Location Tested BP Systolic [...] Type Weight in lbs Pre/Post Dialysis Refused 109.659710328550 BP Diastolic BP Location Tested BP Systolic [...] Type Weight in lbs Pre/Post Dialysis Refused 118.097562629556 BP Diastolic BP Location Tested BP Systolic [...] Type Weight in lbs Pre/Post Dialysis Refused 122.191563022228 BP Diastolic BP Location Tested BP Systolic [...] Type Weight in lbs Pre/Post Dialysis Refused 123.420964309086 BP Diastolic BP Location Tested BP Systolic [...] Weight in lbs Pre/Post Dialysis Refused Weight 123.427276248235 BP Diastolic BP Location Tested BP Systolic [...] Weight in lbs Pre/Post Dialysis Refused Weight 125.151576521709 BP Diastolic BP Location Tested BP Systolic [...] Type Weight in lbs Pre/Post Dialysis Refused 126.48094129210 BP Diastolic BP Location Tested BP Systolic [...] Type Weight in lbs Pre/Post Dialysis Refused 127.430888594236 BP Diastolic BP Location Tested BP Systolic [...] Weight in lbs Pre/Post Dialysis Refused Weight 131.158778353258 BP Diastolic BP Location Tested BP Systolic [...] Weight in lbs Pre/Post Dialysis Refused Weight 131.116320655401 BP Diastolic BP Location Tested BP Systolic BP Type 78 131 Fetus Heart Rate Present Fetus Movement Comments Flowsheet Date 10/07/2024 Frias Score Blood Edema Fundus Height Fundus Units Glucose Ketones Leukocytes Nitrite Labor Signs Protein Cervic Dilation Cervic Effacement Cervic Station neg 37 cm Type Weight in lbs Pre/Post Dialysis Refused 130.159802566799 BP Diastolic BP Location Tested BP Systolic [...] Weight in lbs Pre/Post Dialysis Refused Weight 114.587218637896 BP Diastolic BP Location Tested BP Systolic [...] 5 Induce d 40.3 7.46 Sakina Cantrell CNM Discharge Information Feeding Method Contraceptive Method Maternal HG B and HCT Levels Ob Episode Information Episode Created Date Number of Fetuses Patient Bloodtype Patient rh Status Prepregnancy Weight lbs Domestic Partner Domestic Partner Phone Father Name Manager Energy Status 02/25/20 25 1 A Positive 111 OPEN Fetus Data First Name Last Name Admitted to NICU Weight (g) Sex Living Outcome Pediatric Complications Fetus ID Race Codes Race Delivery Type [id number] Problems Problem Notes +THC in urine Problem Name Start Date End Date Resolution 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 [id number] 03 + 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 2023 [...] Weight in lbs Pre/Post Dialysis Refused Weight 112.192782795195 BP Diastolic BP Location Tested BP Systolic BP Type 62 R arm 112 sitting Fetus Heart Rate Present Fetus Movement A No Comments Flowsheet Date 03/10/2025 Frias Score Blood Edema Fundus Height Fundus Units Glucose Ketones Leukocytes Nitrite Labor Signs Protein Cervic Dilation Cervic Effacement Cervic Station Type Weight in lbs Pre/Post Dialysis Refused 113.553620289349 BP Diastolic BP Location Tested BP Systolic BP Type 63 L arm 106 sitting Fetus Heart Rate Present Fetus Movement A Yes Comments reviewed US, sp was at [facility], appt got rescheduledpt has hx of uncomplicated [...] Weight in lbs Pre/Post Dialysis Refused Weight 115.853052690396 BP Diastolic BP Location Tested BP Systolic [...] Type Weight in lbs Pre/Post Dialysis Refused 119.324525772604 BP Diastolic BP Location Tested BP Systolic [...] Type Weight in lbs Pre/Post Dialysis Refused 123.594487175775 BP Diastolic BP Location Tested BP Systolic [...] Weight in lbs Pre/Post Dialysis Refused Weight 127.529553233224 BP Diastolic BP Location Tested BP Systolic [...] Type Weight in lbs Pre/Post Dialysis Refused 128.809646637939 BP Diastolic BP Location Tested BP Systolic [...]
[2025-07-30 15:52] LABS: Add Urine Microscopic? YES; Appearance Urine Clear (Clear); Glucose Urine UA Negative (Negative); Leukocyte Esterase Ur Trace LEU/UL (Negative); Nitrate Urine Negative (Negative); Non Pathogenic Casts 0-2; Specific Grav Ur 1.015 (1.001-1.035)
--- NOTE | 2025-07-30 15:57 | PC.NURSE ---
1540- pt came into OB unit co contractions starting at 1300. She rates the pain 8/10 and is visibly uncomfortable. Pt does not co vaginal bleeding or leaking of fluid. pt. states she does not drink much water and has not been able to eat much today.
[2025-07-30] MEDS: TERBUTALINE SULFATE 1 MG/ML VIAL 0.25 MG SUB-Q (17:02)
[2025-07-30] MEDS: LACTATED RINGERS 1,000 ML 999 ML IV CONT (17:17)
[2025-07-30] MEDS: ACETAMINOPHEN 500 MG TABLET 1000 MG PO (17:53)
--- NOTE | 2025-07-30 18:44 | PC.NURSE ---
This RN called Dr. Koenig and updated about LR bolus, reassuring FHTs and very irregular contractions. MD aware that patient has only felt two contractions. Abdomen soft to palpation. New orders received to discharge patient at this time.
--- NOTE | 2025-08-23 14:39 | PM.OBTRLD ---
OB - Triage/Final Diagnosis Visit Information Comments/Additional reasons for admission: I have assessed the risk for this patient, Mae Frances, and determined that she would benefit from observation care. Evaluation Laboratory results: Laboratory Tests 07/30/25 15:38 Urine Color Yellow Urine Appearance Clear Urine pH 7.5 Ur Specific [place] 1.015 Urine Protein Negative Urine Glucose (UA) Negative Urine Ketones Negative Ur Blood (Man) Negative Urine Nitrate Negative Urine Bilirubin Negative Urine Urobilinogen 0.2 Leukocyte Esterase Rfl Trace H Urine RBC 0-2 Urine WBC 0-5 Ur Squamous Epith Cells Few Urine Bacteria None seen Urine Casts 0-2 Final Diagnosis (1) False labor: Code(s): O47.9 - False labor, unspecified Status: Acute
== END 2025-07-30 19:15 | disposition home or self-care (01) ==
PROVIDERS: Admitting Provider Obstetrics & Gynecology; PCP Advanced Practice Midwife; Visit Provider Obstetrics & Gynecology
DX: O47.03 False labor before 37 completed weeks of gestation, third trimester (principal); Z3A.34 34 weeks gestation of pregnancy
CPT/HCPCS: 81001; A9270; G0378; G0379; J3105; J7120